=== PATIENT | female | born 1980 | race Caucasian/White ===

== ENCOUNTER 2020-12-22 14:42 | Emergency (ER) | payer OTHER, SELFPAY ==
[2020-12-22 14:50] VITALS: BP 150/101; PULSE 95; RESP 18; TEMP 37; O2SAT 99
[2020-12-22 15:28] VITALS: BP 128/95; PULSE 93; RESP 16; O2SAT 100
--- NOTE | 2020-12-22 16:16 | ED.SKABFB ---
HPI - Skin/Abscess/Foreign Bdy General Chief complaint: Skin/Abscess/Foreign Body Stated complaint: possible abscess L buttock Time Seen by Provider: 12/22/20 15:13 History of Present Illness HPI narrative: Patient is a 39-year-old female who is referred to the ER for possible abscess. Patient has developed induration and pain across her right buttock region where she receives injections for alcohol/opiate abuse. Last injection was 3 weeks ago. No fevers or chills or sweats. Intermittently increasing and decreasing in size. No drainage. Pain with palpation or movement. Related Data Home Medications Medication Instructions Recorded Confirmed hydroxyzine HCl 12/22/20 trazodone 12/22/20 Allergies Allergy/AdvReac Type Severity Reaction Status Date / Time No Known Allergies Allergy Verified 12/22/20 15:30 Review of Systems Review of Systems: All systems reviewed & are unremarkable except as noted in HPI and below Constitutional: Constitutional: Denies chills, Denies fever(s) and Denies weakness Gastrointestinal: Gastrointestinal: Denies abdominal pain, Denies nausea and Denies vomiting Integumentary/Breasts: Skin/Breast: Denies pruritus, Reports erythema and Denies rash PMFSH Past Medical History Medical History (Updated 12/22/20 @ 16:20 by Vincent Villarreal MD) Depression Surgical History Surgical History (Updated 12/22/20 @ 16:19 by Vincent Villarreal MD) History of section Social History Social History (Updated 12/22/20 @ 16:19 by Vincent Villarreal MD) Alcohol intake: former Substance use: former Exam Narrative: Exam Narrative: GENERAL: Well-appearing, well-nourished, and in no acute distress. HEAD: Normocephalic, atraumatic. ENT: Mucous membranes moist. CHEST: Clear to auscultation. No respiratory distress. HEART: Regular rate and rhythm. Normal peripheral pulses. EXTREMITIES: Normal range of motion. No edema. SKIN: Warm, dry, no rash. Area of induration right thigh. Slight erythema. Warmth and tender to touch but no fluctuant abscess noted. NEURO: Alert and oriented x3. PSYCH: Normal mood and affect. Course Course Emergency Course: Discharged antibiotics for cellulitis. Follow-up with PCP. Vital Signs Vital signs: Vital Signs Temperature 98.6 F 12/22/20 14:50 Pulse Rate 95 12/22/20 14:50 Respiratory Rate 18 12/22/20 14:50 Blood Pressure 150/101 H 12/22/20 14:50 Pulse Oximetry 99 12/22/20 14:50 Temperature 98.6 F 12/22/20 14:50 Pulse Rate 93 12/22/20 15:28 Respiratory Rate 16 12/22/20 15:28 Blood Pressure 128/95 H 12/22/20 15:28 Pulse Oximetry 100 12/22/20 15:28 Discharge Plan Discharge Clinical Impression: Cellulitis Patient Disposition: Home, Self-Care Condition: Stable Instructions: Cellulitis (ED) Additional Instructions: Return the ER if you have fever over 100.4 ?F, you cannot keep down food or water, you have chest pain or shortness of breath, you have additional concerns. Prescriptions: New doxycycline monohydrate 100 mg capsule 100 mg PO BID Qty: 20 RF: 0 No Action trazodone 50 mg tablet RF: 0 hydroxyzine HCl 25 mg tablet RF: 0 Follow-up/Referrals: Philip Julio MD [Primary Care Provider] - 1 Week
[2020-12-22 16:42] VITALS: BP 117/88; PULSE 84; RESP 14; TEMP 36.6; O2SAT 100
== END 2020-12-22 16:46 | disposition home or self-care (01) ==
PROVIDERS: Emergency Provider Emergency Medicine; PCP Emergency Medicine
DX: L03.317 Cellulitis of buttock (principal); F32.9 Major depressive disorder, single episode, unspecified
CPT/HCPCS: 99283

== ENCOUNTER 2021-11-13 15:34 | Observation (INO) | payer OTHER, SELFPAY ==
--- NOTE | ~2021-11-13 | CT_ITS ---
EXAMINATION: CT abdomen pelvis w con DATE: 11/13/2021 16:42 INDICATION: abd pain TECHNIQUE: Computed tomography (CT) of the abdomen and pelvis was performed with 75 mL Omnipaque 300 intravenous contrast. Automated exposure control and iterative reconstruction technique were employed . The dose-length product was 745.79 mGy-cm. COMPARISON: 09/17/2013. FINDINGS: Lower thorax: Unremarkable Liver: Normal. Biliary/Gallbladder: Gallbladder is normal. No bile duct dilation. Pancreas: No mass or duct dilation. Spleen: Normal. Adrenals:No mass. Kidneys: No mass, stone, or hydronephrosis. GI tract: No small or large bowel dilation. Normal appendix. Mesentery/Peritoneum: No ascites, mass, or free air. Retroperitoneum: No mass. Pelvis: Pelvic organs are within normal limits. Right ovarian cyst/polyps. Fluid distends the cervica l canal. Soft Tissues: Soft tissues and body wall unremarkable. Bones: No acute osseous finding. IMPRESSION: No acute abdominopelvic process detected. Reviewed, dictated and finalized at location K.
[2021-11-13 15:37] VITALS: BP 186/127; PULSE 129; RESP 18; TEMP 36.5; O2SAT 100
[2021-11-13] MEDS: THIAMINE HCL 200 MG/2 ML VIAL 100 MG IV PUSH (16:02)
[2021-11-13 16:03] LABS: Basophils Absolute Auto 0.1 K/mm3 (0.0-0.1); Basophils Percent Auto 0.5 % (0.2-1.2); Hematocrit 49.7 % (37.0-47.0); Hemoglobin 17.3 g/dL (12.0-15.0); Immature Granulocyte Absolute 0.03 K/mm3 (0.00-0.031); Immature Granulocyte Percent A 0.2 % (0-0.5); Lymphocytes Percent Auto 12.3 % (18.3-44.2); Mean Corpuscular HGB Conc 34.8 g/dl (32-36); Mean Corpuscular Hemoglobin 34.7 pg (26-34); Mean Corpuscular Volume 99.6 fl (80-100); Mean Platelet Volume 9.4 fl (7.4-10.4); Monocytes Absolute Auto 0.6 K/mm3 (0.1-0.6); Monocytes Percent Auto 4.9 % (2.6-8.5); Neutrophils Percent Auto 82.1 % (45.5-73.1); Platelet Count Result 283 k/mm3 (150-375); Red Blood Count 4.99 M/mm3 (4.2-5.4); Red Cell Distribution Width 11.7 % (11.5-14.5); White Blood Count 12.2 K/mm3 (4.5-10.0)
[2021-11-13] MEDS: FAMOTIDINE 20 MG/2 ML VIAL IV PUSH ×2 (16:03→22:07)
[2021-11-13] MEDS: SODIUM CHLORIDE 0.9% IV 1,000 ML 999 ML IV CONT ×2 (16:03→16:56)
[2021-11-13] MEDS: ONDANSETRON INJ 4 MG/2 ML VIAL IV PUSH (16:03)
[2021-11-13 16:12] LABS: Alanine Aminotransferase 66 U/L (6-35); Albumin Level 5.1 g/dL (3.5-5.1); Alkaline Phosphatase 76 U/L (38-126); Anion Gap 16 mmol/L (8-16); Aspartate Amino Transferase 61 U/L (14-36); Blood Urea Nitrogen 11 mg/dL (7-17); Calcium 8.9 mg/dL (8.4-10.2); Carbon Dioxide 23 mmol/L (22-30); Chloride 96 mmol/L (98-107); Estimated CRCL calculation 91 ml/min; Estimated Glomerular Filt Rate > 60; Glucose 119 mg/dL (65-110); Lipase 29 U/L (23-300); Potassium 4.3 mmol/L (3.4-5.0); Sodium 135 mmol/L (137-145)
[2021-11-13 16:13] LABS: Ethanol < 10 mg/dL (<10)
[2021-11-13 16:14] LABS: Appearance Urine Cloudy (Clear); Bilirubin Urine 2+ (Negative); Blood Urine 2+ (Negative); Color Urine Yellow (Yellow); Glucose Urine UA Negative (Negative); Ketones Urine 2+ mg/dL (Negative); Leukocyte Esterase Ur Negative LEU/UL (Negative); Nitrate Urine Negative (Negative); Protein Urine 2+ mg/dL (Negative); Specific Grav Ur >= 1.030 (1.001-1.035); Urobilinogen Urine 0.2 mg/dL (<2.0)
[2021-11-13 16:23] LABS: Add Urine Microscopic? YES; Bacteria Urine Trace /hpf; Mucus Urine Moderate /lpf; Squamous Epithelial Cell Urine Many /hpf (Few)
[2021-11-13 17:07] VITALS: BP 170/113; PULSE 109; RESP 18; O2SAT 100
[2021-11-13] MEDS: LORazepam INJ (*CRX) 2 MG/ML VIAL 1 MG IV PUSH (17:18)
[2021-11-13 17:45] VITALS: BP 137/92; PULSE 102; RESP 16; O2SAT 99
--- NOTE | 2021-11-13 17:49 | ED.GENADULT ---
HPI - General Adult General Chief complaint: Nausea/Vomiting/Diarrhea Stated complaint: vomiting and dehydration Time Seen by Provider: 11/13/21 15:41 Source: RN notes reviewed History of Present Illness HPI narrative: Patient presents emergency department from home for nausea vomiting. Patient states she has been having numerous episodes of nausea vomiting for the past 12 hours. States she is been unable to keep anything down. States is associated with abdominal pain in the right upper abdomen described as aching in nature she denies any fevers or chills chest pain shortness of breath diarrhea or any other symptoms. Patient states that she recently had a friend and she has been drinking heavily since Sunday states that she does not drink on a daily basis prior to this states she has been feeling shaky Related Data Home Medications Medication Instructions Recorded Confirmed No Home Medications 11/13/21 11/13/21 Allergies Allergy/AdvReac Type Severity Reaction Status Date / Time No Known Allergies Allergy Verified 11/13/21 16:10 Review of Systems Review of Systems: Gen.: Denies fevers or chills ENT: Denies congestion Respiratory: Denies shortness of breath or cough CV: Denies chest pain or palpitations GI: See HPI Musculoskeletal: Denies back pain or muscle pain Neuro: Denies numbness, tingling, weakness or focal weakness Skin: Denies rash Except as documented, all other systems reviewed and negative [facility] Past Medical History Medical History Depression Surgical History Surgical History (Updated 12/22/20 @ 16:19 by Vincent Villarreal MD) History of section Social History Social History Alcohol intake: former Substance use: former Exam Narrative: APPEARANCE: No acute distress, nontoxic, resting in bed HEENT: Normocephalic, atraumatic, OMM RESPIRATORY: No respiratory distress, clear to auscultation bilaterally with no rhonchi wheezing or rales CARDIOVASCULAR: RRR s murmur ABDOMINAL: Soft nondistended some palpation epigastric right upper quadrant no tenderness left lower quadrant left lower quadrant and right lower quadrant no rebound or guarding MUSCULOSKELETAl: Moves all extremities. No clubbing, cyanosis or edema. NEURO: Awake and alert. Following commands, speech normal, no focal deficits SKIN:: Warm, dry. Normal Color PSYCHIATRIC: Normal affect/mood Course Course Emergency Course: Patient states she is feeling better following Ativan states she does wish to stop drinking alcohol states she was going through approximately 1/5 of [facility] every 2 days Called and discussed with NICOLÁS Ayers for Dr. Cespedes agrees with admission Discussed with patient and family results of workup and diagnosis. Discussed need for admission. Patient and family understand and agree to current treatment plan Vital Signs Vital signs: Vital Signs Temperature 97.7 F 11/13/21 15:37 Pulse Rate 129 H 11/13/21 15:37 Respiratory Rate 18 11/13/21 15:37 Blood Pressure 186/127 H 11/13/21 15:37 Pulse Oximetry 100 11/13/21 15:37 Temperature 97.7 F 11/13/21 15:37 Pulse Rate 102 H 11/13/21 17:45 Respiratory Rate 16 11/13/21 17:45 Blood Pressure 137/92 H 11/13/21 17:45 Pulse Oximetry 99 11/13/21 17:45 Medical Decision Making Vital Signs Vital Signs: Vital Signs Temperature 97.7 F 11/13/21 15:37 Pulse Rate 129 H 11/13/21 15:37 Respiratory Rate 18 11/13/21 15:37 Blood Pressure 186/127 H 11/13/21 15:37 Pulse Oximetry 100 11/13/21 15:37 Temperature 97.7 F 11/13/21 15:37 Pulse Rate 102 H 11/13/21 17:45 Respiratory Rate 16 11/13/21 17:45 Blood Pressure 137/92 H 11/13/21 17:45 Pulse Oximetry 99 11/13/21 17:45 Lab Data Result diagrams: 11/13/21 15:58 11/13/21 15:58 Labs: Lab Results 10/24
--- NOTE | 2021-11-13 17:49 | PC.NURSE ---
Assumed care of pt at this time. Pt alert and upright on stretcher, lights dimmed. Pt updated on POC.
[2021-11-13 18:45] LABS: SARS-CoV-2 RNA PCR Negative
[2021-11-13] MEDS: SODIUM CHLORIDE 0.9% IV 1,000 ML 125 ML IV CONT (19:21)
[2021-11-13 19:22] VITALS: BP 147/97; PULSE 107; RESP 16; O2SAT 98
--- NOTE | 2021-11-13 20:22 | PM.IMHP ---
H&P: HPI History of Present Illness Date/Time: 11/13/21 20:22 Chief Complaint: Nausea and vomiting. Narrative: This is a 40-year-old female with past medical history significant for alcohol dependence, tobacco dependence. Patient has been binge drinking for the last few days after the of 1 of her friends. Patient today presents to the emergency room due to nausea vomiting and not feeling well overall feeling jittery. Patient denies any loss of consciousness, fever, rigors, chills, cough, sputum production, diarrhea, muscle aches and pains, has not been able to keep anything down for the last several days. Preliminary workup has been essentially nonrevealing. Patient is being placed on observation for further evaluation, management and treatment. Review of Systems Review of Systems: Binge drinking, nausea, vomiting. Constitutional: Constitutional: Denies chills, Denies fatigue, Denies fever(s), Denies lethargy, Denies malaise and Denies weakness Eyes: Eyes: Denies change in vision ENT: Denies dysphagia, Denies vertigo, Denies dizziness, Denies nasal congestion, Denies nasal discharge, Denies nasal obstruction and Denies odynophagia Cardiovascular: Cardiovascular: Denies chest pain, Denies pedal edema, Denies claudication, Denies leg edema, Denies lightheadedness, Denies radiating jaw, neck or arm pain, Denies palpitations and Denies dyspnea on exertion Respiratory: Respiratory: Denies cough, Denies excessive phlegm production and Denies dyspnea Gastrointestinal: Gastrointestinal: Reports abdominal pain, Denies dyspepsia, Denies heartburn, Denies diarrhea, Reports nausea and Reports vomiting Genitourinary: Genitourinary: Denies dysuria Musculoskeletal: Musculoskeletal: Denies arthralgias and Denies joint swelling Integumentary/Breasts: Skin/Breast: Denies rash Neurologic: Denies focal weakness and Denies Sensory deficit (Neuro) Psychiatric: Psychiatric: Reports no additional psychiatric complaints and Reports as per HPI Endocrine: Endocrine: Denies cold intolerance, Denies fatigue, Denies flushing, Denies heat intolerance, Denies polyphagia, Denies polydipsia and Denies palpitations Hematologic/Lymphatic: Hematologic/Lymphatic: Reports no additional hematologic/lymphatic complaints and Reports as per HPI Allergic/Immunologic: Allergic/Immunologic: Reports no additional allergic/immunologic complaints and Reports as per HPI PMFSH Past Medical History Medical History Depression Surgical History Surgical History (Updated 12/22/20 @ 16:19 by Vincent Villarreal MD) History of section Social History Social History Smoking status: Never smoker Alcohol intake: current Drinks per week: 10 Substance use: current Substance use type: marijuana Spiritual care concerns: No Meds Home Medications and Allergies Home Medications Medication Instructions Recorded Confirmed Type No Home Medications 11/13/21 11/13/21 History Allergies Allergy/AdvReac Type Severity Reaction Status Date / Time No Known Allergies Allergy Verified 11/13/21 22:00 Vital Signs Vital Signs - 24 hr 11/13/21 15:37 11/13/21 17:07 11/13/21 17:45 Temperature 97.7 F Pulse Rate 129 H 109 H 102 H Respiratory Rate 18 18 16 Blood Pressure 186/127 H 170/113 H 137/92 H Pulse Oximetry 100 100 99 11/13/21 19:22 Temperature Pulse Rate 107 H Respiratory Rate 16 Blood Pressure 147/97 H Pulse Oximetry 98 Exam Narrative: Laying in bed Const: General: comfortable, no acute distress, well developed, alert, awake and other (Well-appearing) Nutritional Appearance: average body habitus Orientation/consciousness: patient oriented x3 HENMT: Head: normal to inspection, normocephalic and atraumatic Ears: hearing grossly normal bilaterally Face and sinus: normal facial exam Mouth: Yes Normal oral and
[2021-11-13 20:53] VITALS: BMI 36.1
--- NOTE | 2021-11-13 20:56 | ADMGEN ---
This patient, Shruthi Evans, was admitted to [facility] Surg Room 307-01. Patient/family oriented to hospital policies and general routines including ID bracelet, bed and alarms, visiting hours, pain management, procedures, bathroom and other care routines, personal items, smoking policy, room service/diet, and visiting hours. Information on how to activate the Rapid Response Team has been discussed. Patient/Family are encouraged to report perceived risks to care and to ask questions if they do not understand what they are told or what they should do.
[2021-11-13 22:00] VITALS: BP 150/105; PULSE 101; RESP 16; TEMP 36.8; O2SAT 97
[2021-11-13] MEDS: THIAMINE HCL INJ 100 MG, FOLIC ACID INJ 1 MG, MULTIVITAMINS-12 INJ VIAL 1 5 ML, MULTIVI... IV CONT (22:39)
[2021-11-13] MEDS: chlordiazePOXIDE (*CRX) 25 MG CAPSULE 50 MG PO (23:00)
[2021-11-14] VITALS: PULSE 97
[2021-11-14 03:49] VITALS: PULSE 116
[2021-11-14 04:00] VITALS: PULSE 91
[2021-11-14] MEDS: chlordiazePOXIDE (*CRX) 25 MG CAPSULE 50 MG PO (05:11)
[2021-11-14] MEDS: LORazepam INJ (*CRX) 2 MG/ML VIAL 1 MG IV PUSH (05:12)
[2021-11-14 05:43] VITALS: BP 157/106; PULSE 97; RESP 16; TEMP 36.1; O2SAT 99
[2021-11-14 07:15] LABS: Basophils Percent Auto 0.4 % (0.2-1.2); Eosinophils Absolute Auto 0.1 K/mm3 (0-0.3); Eosinophils Percent Auto 1.3 % (0-4.4); Hematocrit 40.8 % (37.0-47.0); Hemoglobin 13.9 g/dL (12.0-15.0); Immature Granulocyte Absolute 0.03 K/mm3 (0.00-0.031); Immature Granulocyte Percent A 0.4 % (0-0.5); Lymphocytes Absolute Auto 1.47 K/mm3 (0.9-3.2); Lymphocytes Percent Auto 21.7 % (18.3-44.2); Mean Corpuscular HGB Conc 34.1 g/dl (32-36); Mean Corpuscular Hemoglobin 34.7 pg (26-34); Mean Corpuscular Volume 101.7 fl (80-100); Mean Platelet Volume 9.7 fl (7.4-10.4); Monocytes Absolute Auto 0.5 K/mm3 (0.1-0.6); Neutrophils Absolute Auto 4.6 K/mm3 (1.3-6.7); Neutrophils Percent Auto 68.2 % (45.5-73.1); Platelet Count Result 192 k/mm3 (150-375); Red Blood Count 4.01 M/mm3 (4.2-5.4); Red Cell Distribution Width 11.7 % (11.5-14.5); White Blood Count 6.8 K/mm3 (4.5-10.0)
[2021-11-14 07:27] LABS: Alanine Aminotransferase 32 U/L (6-35); Albumin Level 3.4 g/dL (3.5-5.1); Alkaline Phosphatase 41 U/L (38-126); Anion Gap 6 mmol/L (8-16); Aspartate Amino Transferase 39 U/L (14-36); Bilirubin,Total 0.7 mg/dL (0.2-1.3); Blood Urea Nitrogen 7 mg/dL (7-17); Calcium 7.5 mg/dL (8.4-10.2); Carbon Dioxide 26 mmol/L (22-30); Chloride 103 mmol/L (98-107); Estimated CRCL calculation 82 ml/min; Estimated Glomerular Filt Rate > 60; Glucose 129 mg/dL (65-110); Potassium 3.6 mmol/L (3.4-5.0); Sodium 135 mmol/L (137-145)
[2021-11-14 08:52] VITALS: O2SAT 98
[2021-11-14 08:55] VITALS: PULSE 88
[2021-11-14] MEDS: FAMOTIDINE 20 MG/2 ML VIAL IV PUSH (08:58)
--- NOTE | 2021-11-14 10:55 | PM.DS ---
DS: Admitting Diagnosis Discharge Date November 14, 2021 Admitting Diagnosis Alcohol withdrawal DS: Discharge Diagnosis Discharge Diagnosis (1) Nausea and vomiting: Code(s): R11.2 - Nausea with vomiting, unspecified Status: Acute Assessment and Plan: Resolved (2) Acute dehydration: Code(s): E86.0 - Dehydration Status: Acute Assessment and Plan: Resolved (3) Alcohol withdrawal: Code(s): F10.239 - Alcohol dependence with withdrawal, unspecified Status: Acute Assessment and Plan: Low-dose Librium on discharge DS: Summary Hospital Course Hospital Course: Patient was admitted for alcohol intoxication and mild withdrawal. No seizures. Discharged on Librium. Time Spent with Patient Time attestation: Total time spent providing and/or coordinating discharge services: Greater than 30 min Exam Narrative: Laying in bed Const: General: comfortable, no acute distress, well developed, alert, awake and other (Well-appearing) Nutritional Appearance: average body habitus Orientation/consciousness: patient oriented x3 HENMT: Head: normal to inspection, normocephalic and atraumatic Ears: hearing grossly normal bilaterally Face and sinus: normal facial exam Mouth: Yes Normal oral and palatal mucosa present Eyes: General: appearance normal, both eyes and all related structures Alignment and Position: alignment normal Sclera: sclerae normal Pupils: Equal, round and reactive pupils present EOM: EOMs intact bilaterally Neck: Neck: normal visual inspection, full ROM, no lymphadenopathy, supple and no JVD Thyroid: thyroid normal Lymphatic: no lymphadenopathy noted Resp: Effort & Inspection: normal respiratory effort and able to speak in complete sentences Auscultation: clear to auscultation bilaterally Cardio: Jugular venous distension: no JVD Rate: regular rate Rhythm: regular rhythm Heart sounds: S1 normal heart sound present and S2 normal heart sound present : General: Yes deferred Skin: General skin exam: normal color Rashes: no rashes Wounds: no wounds Neuro: General: patient oriented x3, CN's II-XI intact bilaterally and Unable to assess gait Cranial nerves: Yes CN's II-XII intact bilaterally and Yes Equal, round and reactive pupils present Cognition (Neuro): normal cognition Speech: normal speech Gait exam (Neuro): Unable to assess gait Motor exam (neuro): 5/5 motor strength present throughout Sensory Exam: No Sensory deficit (Neuro) Extrem: General: normal to inspection, full ROM, no joint enlargement and no pedal edema DS: Data Data Completed and Pending Labs on day of discharge: Labs from last 24 hours 11/14/21 11/14/21 11/13/21 06:51 06:51 18:04 WBC 6.8 RBC 4.01 L Hgb 13.9 D Hct 40.8 MCV 101.7 H MCH 34.7 H MCHC 34.1 RDW 11.7 Plt Count 192 MPV 9.7 Immature Gran % (Auto) 0.4 Neut % (Auto) 68.2 Lymph % (Auto) 21.7 [place] % (Auto) 8.0 Eos % (Auto) 1.3 Baso % (Auto) 0.4 Lymph # (Auto) 1.47 [place] # (Auto) 0.5 Eos # (Auto) 0.1 Baso # (Auto) 0.0 Abs Immat Gran (auto) 0.03 Absolute Neuts (auto) 4.6 Absolute Nucleated RBC 0.0 Nucleated RBC % 0.0 Sodium 135 L Potassium 3.6 Chloride 103 Carbon Dioxide 26 Anion Gap 6 L BUN 7 Creatinine 0.80 Estim Creat Clear Calc 82 Estimated GFR > 60 Glucose 129 H Calcium 7.5 L Total Bilirubin 0.7 AST 39 H ALT 32 Alkaline Phosphatase 41 Total Protein 6.0 L Albumin 3.4 L Lipase Urine Color Urine Appearance Urine pH Ur Specific [place] Urine Protein Urine Glucose (UA) Urine Ketones Ur Blood (Man) Urine Nitrate Urine Bilirubin Urine Urobilinogen Leukocyte Esterase Rfl Urine RBC Urine WBC Ur Squamous Epith Cells Urine Bacteria Urine Mucus Ethyl Alcohol SARS-CoV-2 RNA (RT-PCR) Negative 11/13/21 11/13/21 11/13/21
== END 2021-11-14 11:16 | disposition home or self-care (01) ==
LOC: ANHED 17:59 → ANH3MEDSUR 11-14 05:45
PROVIDERS: Admitting Provider Internal Medicine; Emergency Provider Emergency Medicine; PCP Family Medicine; Visit Provider Chiropractor
DX: F10.239 Alcohol dependence with withdrawal, unspecified (principal); R11.2 Nausea with vomiting, unspecified; E86.0 Dehydration; Z20.822 Contact with and (suspected) exposure to COVID-19
CPT/HCPCS: 36415; 74177; 80053; 80307; 81001; 81025; 83690; 85025; 87086; 87088; 96361; 96365; 96366; 96374; 96375; 96376; 99285; A9270; C9803; G0378; G0379; J2060; J2405; J3411; J3475; J7030; J7121; Q9967; U0003; U0005

== ENCOUNTER 2022-06-01 15:40 | Emergency (ER) | payer OTHER, SELFPAY ==
[2022-06-01] VITALS (14 sets, daily range): BP systolic 156–203; BP diastolic 106–133; PULSE 95–140; RESP 14–31; TEMP 36.9; O2SAT 96–98
--- NOTE | 2022-06-01 15:58 | ECG_ITS ---
Measurements Intervals [place] Rate: 113 P: 47 IA: 146 QRS: 44 QRSD: 79 T: 20 QT: 313 QTc: 430 Interpretive Statements SINUS TACHYCARDIA OTHERWISE NORMAL ECG NO PREVIOUS ECG AVAILABLE FOR COMPARISON Electronically Signed On 06-02-2022 7:44:01 [employer]ER LIAISON by Connor Perez M.D.
[2022-06-01 16:41] LABS: Basophils Percent Auto 0.4 % (0.2-1.2); Eosinophils Percent Auto 0.3 % (0-4.4); Hematocrit 46.7 % (37.0-47.0); Hemoglobin 16.8 g/dL (12.0-15.0); Immature Granulocyte Absolute 0.02 K/mm3 (0.00-0.031); Immature Granulocyte Percent A 0.3 % (0-0.5); Lymphocytes Absolute Auto 1.85 K/mm3 (0.9-3.2); Lymphocytes Percent Auto 27.3 % (18.3-44.2); Mean Corpuscular Hemoglobin 34.6 pg (26-34); Mean Corpuscular Volume 96.1 fl (80-100); Mean Platelet Volume 9.6 fl (7.4-10.4); Monocytes Absolute Auto 0.5 K/mm3 (0.1-0.6); Monocytes Percent Auto 6.6 % (2.6-8.5); Neutrophils Absolute Auto 4.4 K/mm3 (1.3-6.7); Neutrophils Percent Auto 65.1 % (45.5-73.1); Platelet Count Result 186 k/mm3 (150-375); Red Blood Count 4.86 M/mm3 (4.2-5.4); Red Cell Distribution Width 11.6 % (11.5-14.5); White Blood Count 6.8 K/mm3 (4.5-10.0)
[2022-06-01] MEDS: SODIUM CHLORIDE 0.9% IV 1,000 ML 150 ML IV CONT (16:44)
[2022-06-01] MEDS: LORazepam INJ (*CRX) 2 MG/ML VIAL 1 MG IV PUSH ×2 (16:44→19:08)
[2022-06-01] MEDS: THIAMINE HCL 200 MG/2 ML VIAL 100 MG IV PUSH (16:44)
[2022-06-01 16:45] LABS: Appearance Urine Clear (Clear); Bilirubin Urine 1+ (Negative); Blood Urine Trace-lysed (Negative); Color Urine Yellow (Yellow); Glucose Urine UA Negative (Negative); Ketones Urine 1+ mg/dL (Negative); Leukocyte Esterase Ur Negative LEU/UL (Negative); Nitrate Urine Negative (Negative); Protein Urine 3+ mg/dL (Negative); Urobilinogen Urine 0.2 mg/dL (<2.0); pH Urine 7.5 (5.0-9.0)
[2022-06-01 16:47] LABS: Mucus Urine Rare /lpf; Squamous Epithelial Cell Urine Many /hpf (Few); WBC Urine 0-3 /hpf
[2022-06-01 16:51] LABS: Alanine Aminotransferase 31 U/L (6-35); Albumin Level 4.7 g/dL (3.5-5.1); Alkaline Phosphatase 59 U/L (38-126); Anion Gap 13 mmol/L (8-16); Aspartate Amino Transferase 44 U/L (14-36); Bilirubin,Total 0.4 mg/dL (0.2-1.3); Blood Urea Nitrogen 8 mg/dL (7-17); Calcium 8.9 mg/dL (8.4-10.2); Carbon Dioxide 25 mmol/L (22-30); Chloride 97 mmol/L (98-107); Estimated CRCL calculation 84 ml/min; Estimated Glomerular Filt Rate > 60; Glucose 115 mg/dL (65-110); Potassium 3.4 mmol/L (3.4-5.0); Sodium 135 mmol/L (137-145)
[2022-06-01 16:52] LABS: Add Urine Microscopic? YES
[2022-06-01 17:02] LABS: Amphetamine Screen Urine Negative (Negative); Barbiturate Screen Urine Negative (Negative); Benzodiazepines Screen Urine Negative (Negative); Cannabinoid Screen Urine Positive (Negative); Cocaine Screen Urine Negative (Negative); Methadone Screen Urine Negative (Negative); Opiate Screen Urine Negative (Negative); Phencyclidine Screen Urine Negative (Negative)
[2022-06-01] MEDS: ONDANSETRON INJ 4 MG/2 ML VIAL IV PUSH (17:05)
[2022-06-01] MEDS: chlordiazePOXIDE (*CRX) 25 MG CAPSULE PO (18:17)
[2022-06-01] MEDS: KETOROLAC 15 MG/ML VIAL (*BKC) IV PUSH (18:17)
[2022-06-01] MEDS: cloNIDine HCL 0.2 MG TABLET PO (18:29)
--- NOTE | 2022-06-01 19:31 | ED.ALCOHOL ---
HPI - Alcohol General Chief Complaint: Alcohol Stated Complaint: ETOH WITHDRAWALS Time Seen by Provider: 06/01/22 15:58 Source: patient Mode of arrival: ambulatory Limitations: no limitations History of Present Illness HPI narrative: 41-year-old with a history of hypertension, chronic alcoholism here with complaints of having withdrawal symptoms which includes nausea, heart racing, elevated blood pressure. Patient states that she drinks a pint of whiskey on a daily basis and her last drink was at 7 AM. Patient states that she has been in a rehab several times but relapsed. She denies being suicidal or depressed. MD complaint: alcohol withdrawal Last drink: hours (ago) (4) Chronic alcohol use: Yes Previous visits for alcohol intoxication: Yes Recent trauma: No Associated symptoms: nausea and tremors Treatments prior to arrival: none Related Data Allergies Allergy/AdvReac Type Severity Reaction Status Date / Time No Known Allergies Allergy Verified 11/13/21 22:00 Review of Systems Review of Systems: All systems reviewed & are unremarkable except as noted in HPI and below Constitutional: Constitutional: Reports no additional constitutional complaints Eyes: Eyes: Reports no additional eye complaints ENT: Reports system reviewed and no additional complaints, except as documented Cardiovascular: Cardiovascular: Reports as per HPI Respiratory: Respiratory: Reports no additional respiratory complaints Gastrointestinal: Gastrointestinal: Reports as per HPI Musculoskeletal: Musculoskeletal: Reports no additional musculoskeletal complaints Integumentary/Breasts: Skin/Breast: Reports system reviewed and no additional complaints, except as docu PMFSH Past Medical History Medical History Depression Surgical History Surgical History History of section Social History Social History Smoking status: Never smoker Alcohol intake: current Drinks per week: 10 Substance use: current Substance use type: marijuana Spiritual care concerns: No Exam Narrative: GENERAL: Well-appearing, well-nourished, and in no acute distress. Rocking on the bed, anxious HEAD: Normocephalic, atraumatic. EYES: PERRLA and EOMI. NECK: Supple. CHEST: Clear to auscultation. No respiratory distress. HEART: tachycardic. No murmur heard. Normal peripheral pulses. ABDOMEN: Soft, nontender, nondistended, normal active bowel sounds. EXTREMITIES: Normal range of motion. No edema. SKIN: Warm, dry, no rash. NEURO: No focal deficits. Alert and oriented x3. Tremor present in both upper extremities PSYCH: Normal mood and affect. Course Course Emergency Course: 41-year-old with history of hypertension, chronic alcoholism here with withdrawal symptoms. We will start IV fluids, Ativan for her tremor and tachycardia do routine lab work. Patient was given IV Ativan x2 and clonidine for her blood pressure. She is feeling much better prefers to go home. Vital Signs Vital signs: Vital Signs Temperature 36.9 C 06/01/22 15:46 Pulse Rate 140 H 06/01/22 15:46 Respiratory Rate 22 H 06/01/22 15:46 Blood Pressure 203/133 H 06/01/22 15:46 Pulse Oximetry 98 06/01/22 15:46 Temperature 36.9 C 06/01/22 15:46 Pulse Rate 99 06/01/22 17:58 Respiratory Rate 29 H 06/01/22 18:01 Blood Pressure 170/122 H 06/01/22 17:58 Pulse Oximetry 97 06/01/22 17:58 MDM - Alcohol MDM Narrative Medical decision making narrative: 41-year-old with a history of hypertension and chronic alcoholism now having withdrawal symptoms start IV fluids give her thiamine 100 mg IV along with Ativan 1 mg. Patient blood pressure remained high did give her point 2 mg of clonidine. Patient is feeling much better after IV fluids and medication she prefers to go home. Differential Diagnos
[2022-06-01] MEDS: CALCIUM CARBONATE (TUMS) 500 MG (200 MG ELEMENTAL) 400 MG PO (20:22)
== END 2022-06-01 20:38 | disposition home or self-care (01) ==
PROVIDERS: Emergency Provider Family Medicine
DX: F10.239 Alcohol dependence with withdrawal, unspecified (principal); I10 Essential (primary) hypertension; R00.0 Tachycardia, unspecified
CPT/HCPCS: 36415; 80053; 80307; 81001; 84443; 85025; 93005; 96361; 96374; 96375; 96376; 99284; A9270; J1885; J2060; J2405; J3411; J7030

== ENCOUNTER 2022-07-23 13:50 | Emergency (ER) | payer OTHER, SELFPAY ==
[2022-07-23] VITALS (15 sets, daily range): BP systolic 138–195; BP diastolic 102–121; PULSE 102–145; RESP 13–25; TEMP 36.2; O2SAT 97–100
[2022-07-23 14:54] LABS: Basophils Percent Auto 0.2 % (0.2-1.2); Hematocrit 48.8 % (37.0-47.0); Hemoglobin 17.4 g/dL (12.0-15.0); Immature Granulocyte Absolute 0.03 K/mm3 (0.00-0.031); Immature Granulocyte Percent A 0.3 % (0-0.5); Lymphocytes Absolute Auto 0.84 K/mm3 (0.9-3.2); Lymphocytes Percent Auto 8.4 % (18.3-44.2); Mean Corpuscular HGB Conc 35.7 g/dl (32-36); Mean Corpuscular Hemoglobin 34.4 pg (26-34); Mean Corpuscular Volume 96.4 fl (80-100); Mean Platelet Volume 9.8 fl (7.4-10.4); Monocytes Absolute Auto 0.7 K/mm3 (0.1-0.6); Monocytes Percent Auto 7.1 % (2.6-8.5); Neutrophils Absolute Auto 8.4 K/mm3 (1.3-6.7); Platelet Count Result 218 k/mm3 (150-375); Red Blood Count 5.06 M/mm3 (4.2-5.4); Red Cell Distribution Width 12.7 % (11.5-14.5)
[2022-07-23 15:05] LABS: Prothrombin Time 12.9 Seconds (11.1-14.7)
[2022-07-23] MEDS: SODIUM CHLORIDE 0.9% IV 1,000 ML 999 ML IV CONT ×2 (15:05→18:31)
[2022-07-23 15:06] LABS: Partial Thromboplastin Time 23.6 SECONDS (22.3-36.8)
[2022-07-23] MEDS: diazePAM INJ (*CRX) 10 MG/2 ML SYRINGE 5 MG IV PUSH (15:06)
[2022-07-23] MEDS: ONDANSETRON INJ 4 MG/2 ML VIAL IV PUSH (15:06)
[2022-07-23 15:09] LABS: Ethanol < 10 mg/dL (<10)
[2022-07-23 15:14] LABS: Albumin Level 4.8 g/dL (3.5-5.1); Alkaline Phosphatase 76 U/L (38-126); Anion Gap 19 mmol/L (8-16); Aspartate Amino Transferase 55 U/L (14-36); Bilirubin,Total 1.6 mg/dL (0.2-1.3); Blood Urea Nitrogen 14 mg/dL (7-17); Carbon Dioxide 17 mmol/L (22-30); Chloride 98 mmol/L (98-107); Estimated CRCL calculation 80 ml/min; Estimated Glomerular Filt Rate > 60; Glucose 160 mg/dL (65-110); Magnesium 2.3 mg/dL (1.6-2.3); Potassium 4.1 mmol/L (3.4-5.0); Sodium 134 mmol/L (137-145)
[2022-07-23 15:26] LABS: Alanine Aminotransferase 55 U/L (6-35)
[2022-07-23 16:16] LABS: Lipase 61 U/L (23-300)
--- NOTE | 2022-07-23 16:22 | ED.GENADULT ---
HPI - General Adult General Chief complaint: Alcohol Stated complaint: .etoh withdrawl Time Seen by Provider: 07/23/22 14:06 History of Present Illness HPI narrative: Patient is a 5-year-old female who presents ER for concerns of alcohol withdrawal. She reports she had several days off and drink new fifths of whiskey. She then started having epigastric pain and vomiting and tremors. She began taking chlordiazepoxide yesterday which was prescribed by her PCP. She has had 3 doses of 25 mg today. She continues to feel tremulous and nauseous with epigastric discomfort. No fevers or chills or sweats. No diarrhea. No chest pain or chest pressure. No history of withdrawal seizure. Related Data Home Medications Medication Instructions Recorded Confirmed acamprosate 333 mg tablet,delayed mg PO 07/23/22 07/23/22 release hydroxyzine HCl 25 mg tablet mg 07/23/22 Allergies Allergy/AdvReac Type Severity Reaction Status Date / Time ABX Allergy Unknown Uncoded 07/23/22 14:48 Review of Systems Review of Systems: All systems reviewed & are unremarkable except as noted in HPI and below Constitutional: Constitutional: Denies chills, Denies fatigue and Denies fever(s) ENT: Denies nasal congestion and Denies sore throat Cardiovascular: Cardiovascular: Denies chest pain, Denies rapid heart rate and Denies radiating jaw, neck or arm pain Respiratory: Respiratory: Denies cough and Denies dyspnea Gastrointestinal: Gastrointestinal: Reports abdominal pain, Denies diarrhea, Reports nausea and Reports vomiting Genitourinary: Genitourinary: Denies nocturia and Denies dysuria PMFSH Past Medical History Medical History Depression Surgical History Surgical History History of section Social History Social History Smoking status: Never smoker Alcohol intake: current Drinks per week: 10 Substance use: current Substance use type: marijuana Spiritual care concerns: No Exam Narrative: GENERAL: Uncomfortable-appearing, well-nourished, and in mild distress. HEAD: Normocephalic, atraumatic. EYES: PERRL and EOMI. ENT: Mucous membranes moist. CHEST: Clear to auscultation. No respiratory distress. HEART: Tachycardic and regular. Normal peripheral pulses. ABDOMEN: Soft, nontender, nondistended, normal active bowel sounds. EXTREMITIES: Normal range of motion. No edema. SKIN: Warm, dry, no rash. NEURO: No focal deficits. Slightly tremulous. Alert and oriented x3. PSYCH: Normal mood and affect. Course Course Emergency Course: Tachycardia improving with hydration. Patient tolerating intake of oral fluids. Epigastric discomfort improved as is vomiting. Will start on a PPI. Patient still has very mild tremors. [place] appropriate for outpatient treatment as she does have access to her Librium. Vital Signs Vital signs: Vital Signs Temperature 97.2 F L 07/23/22 13:50 Pulse Rate 145 H 07/23/22 13:50 Respiratory Rate 18 07/23/22 13:50 Blood Pressure 195/121 H 07/23/22 13:50 Pulse Oximetry 100 07/23/22 13:50 Temperature 97.2 F L 07/23/22 13:50 Pulse Rate 118 H 07/23/22 18:06 Respiratory Rate 21 H 07/23/22 18:06 Blood Pressure 145/104 H 07/23/22 18:06 Pulse Oximetry 98 07/23/22 18:06 Medical Decision Making Vital Signs Vital Signs: Vital Signs Temperature 97.2 F L 07/23/22 13:50 Pulse Rate 145 H 07/23/22 13:50 Respiratory Rate 18 07/23/22 13:50 Blood Pressure 195/121 H 07/23/22 13:50 Pulse Oximetry 100 07/23/22 13:50 Temperature 97.2 F L 07/23/22 13:50 Pulse Rate 118 H 07/23/22 18:06 Respiratory Rate 21 H 07/23/22 18:06 Blood Pressure 145/104 H 07/23/22 18:06 Pulse Oximetry 98 07/23/22 18:06 Lab Data 07/23/22 14:45 07/23/22 14:45 Labs: Lab Res
[2022-07-23] MEDS: PANTOPRAZOLE SODIUM IV 40 MG VIAL IV PUSH (19:38)
== END 2022-07-23 19:57 | disposition home or self-care (01) ==
PROVIDERS: Emergency Provider Emergency Medicine
DX: F10.239 Alcohol dependence with withdrawal, unspecified (principal); Y90.0 Blood alcohol level of less than 20 mg/100 ml; F32.A Depression, unspecified
CPT/HCPCS: 36415; 80053; 80307; 83690; 83735; 85025; 85610; 85730; 96361; 96374; 96375; 99284; C9113; J2405; J3360; J7030

== ENCOUNTER 2023-01-03 12:13 | Emergency (ER) | payer OTHER, SELFPAY ==
[2023-01-03] VITALS (18 sets, daily range): BP systolic 140–160; BP diastolic 79–119; PULSE 112–141; RESP 16–26; TEMP 36.1; O2SAT 92–99
--- NOTE | ~2023-01-03 | XR_ITS ---
EXAMINATION: XR chest 1V portable INDICATION: Vomiting TECHNIQUE: Portable AP chest at 1314 hours COMPARISON: 03/07/2012 FINDINGS: The lungs are free of acute opacities. No pleural effusion or pneumothorax. The cardiomedia stinal silhouette is normal. IMPRESSION: 1. No acute cardiopulmonary abnormality. Reviewed, dictated and finalized at location B.
--- NOTE | 2023-01-03 13:04 | ED.NAVMDI ---
HPI - Nausea/Vomiting/Diarrhea General Chief complaint: Nausea/Vomiting/Diarrhea Stated complaint: Vomiting Time Seen by Provider: 01/03/23 13:03 Source: patient Mode of arrival: ambulatory Limitations: no limitations History of Present Illness HPI Narrative: 42 years old white female drove herself to the emergency room with alcohol withdrawal symptoms. Patient been binge drinking for the last 3 days nonstop, last alcohol intake was 16 hours ago. Patient stopped so to be able to go to work tomorrow. Patient reports nausea and vomiting at least 40 times since last night. Currently shaking, restless and anxious. Patient had a prescription of Librium from her doctor and could not get it today. She denies any fever, chills, chest pain, headache or abdominal pain. Related Data Home Medications Medication Instructions Recorded Confirmed acamprosate 333 mg tablet,delayed mg PO 07/23/22 07/23/22 release hydroxyzine HCl 25 mg tablet mg 07/23/22 Allergies Allergy/AdvReac Type Severity Reaction Status Date / Time ABX Allergy Unknown Uncoded 07/23/22 14:48 Review of Systems Review of Systems: All systems reviewed & are unremarkable except as noted in HPI and below PMFSH Past Medical History Medical History Depression Surgical History Surgical History History of section Social History Social History Smoking status: Never smoker Alcohol intake: current Drinks per week: 10 Substance use: current Substance use type: marijuana Spiritual care concerns: No Exam Narrative: General appearance: Well-developed, well-nourished, shaking, restless, diaphoretic Skin: Normal color Head: Normocephalic, nontraumatic Eyes: Clear conjunctiva ENT: Oropharynx normal, ears normal, nose normal Neck: Supple, nontender Chest and respiratory: Airway patent, no respiratory distress, no accessory muscle use Heart: Tachycardia Abdomen: Soft, nontender, no organomegaly, quiet bowel sounds Vascular: Normal peripheral pulses, normal capillary refill. Musculoskeletal: Normal range of motion, nontender back Neurologic: Alert and oriented ?3, FEATHERER is normal as tested, no gross motor deficit Course Vital Signs Vital signs: Vital Signs Temperature 36.1 C L 01/03/23 12:34 Pulse Rate 140 H 01/03/23 12:34 Respiratory Rate 16 01/03/23 12:34 Blood Pressure 149/119 H 01/03/23 12:34 Pulse Oximetry 98 01/03/23 12:34 Oxygen Delivery Room Air 01/03/23 12:34 Temperature 36.1 C L 01/03/23 12:34 Pulse Rate 112 H 01/03/23 16:31 Respiratory Rate 18 01/03/23 16:31 Blood Pressure 155/109 H 01/03/23 16:30 Pulse Oximetry 97 01/03/23 16:31 Oxygen Delivery Room Air 01/03/23 12:34 MDM - Nausea/Vomiting/Diarrhea MDM Narrative Medical decision making narrative: Patient presents with restlessness, shaking, sweating, tachycardia, last alcohol intake 16 hours prior to arrival. Patient have a prescription of Librium from her family physician, could not get it right away and decided to come to us instead History of alcoholism and marijuana use. Work-up today include CBC, CMP, PT, lipase, urine analysis, alcohol level and urine drug screen showed white count of 14.2 likely secondary to stress, sodium of 130 secondary to frequent vomiting, urine analysis showed no infection, urine drug screen positive for marijuana, alcohol less than 10, chest x-ray showed no acute abnormality. Patient received 2 mg of lorazepam IV, folic acid 1 mg IV, thiamine 100 mg IV, 2 L of norm
[2023-01-03 13:44] LABS: Basophils Percent Auto 0.3 % (0.2-1.2); Hematocrit 45.9 % (37.0-47.0); Hemoglobin 16.7 g/dL (12.0-15.0); Immature Granulocyte Absolute 0.06 K/mm3 (0.00-0.031); Immature Granulocyte Percent A 0.4 % (0-0.5); Lymphocytes Absolute Auto 1.31 K/mm3 (0.9-3.2); Lymphocytes Percent Auto 9.3 % (18.3-44.2); Mean Corpuscular HGB Conc 36.4 g/dl (32-36); Mean Corpuscular Hemoglobin 34.1 pg (26-34); Mean Corpuscular Volume 93.7 fl (80-100); Mean Platelet Volume 10.1 fl (7.4-10.4); Monocytes Absolute Auto 0.6 K/mm3 (0.1-0.6); Monocytes Percent Auto 4.2 % (2.6-8.5); Neutrophils Absolute Auto 12.2 K/mm3 (1.3-6.7); Neutrophils Percent Auto 85.8 % (45.5-73.1); Platelet Count Result 289 k/mm3 (150-375); Red Cell Distribution Width 12.2 % (11.5-14.5); White Blood Count 14.2 K/mm3 (4.5-10.0)
[2023-01-03 13:52] LABS: Ammonia < 9 umol/L (9-30); Ethanol < 10 mg/dL (<10)
[2023-01-03] MEDS: MULTIVITAMINS-12 INJ VIAL 1 5 ML, MULTIVITAMINS-12 INJ VIAL 2 5 ML in SODIUM CHLORIDE 0... 100 ML IV CONT (13:52)
[2023-01-03] MEDS: LORazepam INJ (*CRX) 2 MG/ML VIAL IV PUSH (13:57)
[2023-01-03] MEDS: THIAMINE HCL 200 MG/2 ML VIAL 100 MG IV PUSH (13:57)
[2023-01-03] MEDS: SODIUM CHLORIDE 0.9% IV 2,000 ML 999 ML IV CONT (13:57)
[2023-01-03] MEDS: FOLIC ACID 1 MG/0.2 ML INJ IV PUSH (13:58)
[2023-01-03 14:00] LABS: INR 0.9; Prothrombin Time 12.9 Seconds (11.1-14.7)
[2023-01-03 14:04] LABS: Albumin Level 4.9 g/dL (3.5-5.1); Alkaline Phosphatase 72 U/L (38-126); Anion Gap 11 mmol/L (8-16); Aspartate Amino Transferase 33 U/L (14-36); Bilirubin,Total 1.5 mg/dL (0.2-1.3); Blood Urea Nitrogen 17 mg/dL (7-17); Calcium 9.9 mg/dL (8.4-10.2); Carbon Dioxide 24 mmol/L (22-30); Chloride 95 mmol/L (98-107); Creatine Kinase 61 U/L (30-135); Estimated CRCL calculation 85 ml/min; Estimated Glomerular Filt Rate > 60; Glucose 143 mg/dL (65-110); Sodium 130 mmol/L (137-145)
--- NOTE | 2023-01-03 14:13 | ECG_ITS ---
Measurements Intervals [place] Rate: 132 P: 41 NV: 138 QRS: 37 QRSD: 81 T: 25 QT: 288 QTc: 428 Interpretive Statements SINUS TACHYCARDIA DELAYED PRECORDIAL R/S TRANSITION BORDERLINE ST-T WAVE ABNORMALITY- INFERIOR LEADS ABNORMAL ECG COMPARED TO ECG 05/20/2022 03:36:22 SINUS TACHYCARDIA NOW PRESENT Electronically Signed On 01-03-2023 14:16:20 CDT by Chavo GARCIA
[2023-01-03 14:14] LABS: Alanine Aminotransferase 49 U/L (6-35)
[2023-01-03 14:50] LABS: Appearance Urine Cloudy (Clear); Bacteria Urine None Seen /hpf; Bilirubin Urine 1+ (Negative); Blood Urine Negative (Negative); Color Urine Dark Yellow (Yellow); Glucose Urine UA Negative (Negative); Hyaline Casts Urine Present /lpf; Ketones Urine 1+ mg/dL (Negative); Leukocyte Esterase Ur Trace LEU/UL (Negative); Nitrate Urine Negative (Negative); Protein Urine 2+ mg/dL (Negative); Squamous Epithelial Cell Urine Few /hpf (Few); WBC Urine 0-5 /hpf; pH Urine 5.5 (5.0-9.0)
[2023-01-03 14:51] LABS: Add Urine Microscopic? YES; Specific Grav Ur 1.037 (1.001-1.035)
[2023-01-03 15:20] LABS: Amphetamine Screen Urine Negative (Negative); Barbiturate Screen Urine Negative (Negative); Benzodiazepines Screen Urine Negative (Negative); Cannabinoid Screen Urine Positive (Negative); Cocaine Screen Urine Negative (Negative); Methadone Screen Urine Negative (Negative); Opiate Screen Urine Negative (Negative); Phencyclidine Screen Urine Negative (Negative)
--- NOTE | 2023-01-03 16:56 | PC.NURSE ---
EDP ok with patient not getting entire banana bag infusion
--- NOTE | 2023-01-08 11:16 | PC.NURSE ---
LATE ENTRY This note is being entered to document information to the patient's record. The following information was omitted on [01/03/23], by [Margot Castellano RN]. NS fluids infusion was discontinued at stop time on 01/03/23.
== END 2023-01-03 16:59 | disposition home or self-care (01) ==
PROVIDERS: Emergency Provider Emergency Medicine; PCP Family Medicine
DX: F10.230 Alcohol dependence with withdrawal, uncomplicated (principal); Y90.0 Blood alcohol level of less than 20 mg/100 ml; F12.10 Cannabis abuse, uncomplicated; R00.0 Tachycardia, unspecified; R94.31 Abnormal electrocardiogram [ECG] [EKG]
CPT/HCPCS: 36415; 71045; 80053; 80307; 81001; 81025; 82140; 82550; 85025; 85610; 93005; 96361; 96365; 96375; 99284; J2060; J3411; J7030

== ENCOUNTER 2023-02-09 17:48 | Emergency (ER) | payer OTHER, SELFPAY ==
[2023-02-09 17:59] VITALS: BP 156/102; PULSE 83; RESP 16; TEMP 36.6; O2SAT 97
--- NOTE | 2023-02-09 18:00 | ED.URI ---
HPI - URI/Sore Throat General Chief Complaint: Upper Respiratory Infection Stated Complaint: flu like symptoms Time Seen by Provider: 02/09/23 18:00 Source: patient, RN notes reviewed and old records reviewed Mode of arrival: ambulatory Limitations: no limitations History of Present Illness HPI Narrative: 42-year-old female presents to the [facility] with concerns of sore throat and body aches for 2 weeks. Patient reports that she has been treating it as a virus with [id number] products. Patient extremely anxious. States that she is not allergic to antibiotics just some pill they gave her for a vaginal yeast infection. Related Data Home Medications Medication Instructions Recorded Confirmed hydroxyzine HCl 25 mg tablet 25 mg PO PRN PRN Anxiety 07/23/22 02/09/23 alprazolam 0.25 mg tablet 0.25 mg PO PRN PRN Anxiety 02/09/23 02/09/23 chlordiazepoxide HCl 25 mg capsule 25 mg PO BID PRN agitation 02/09/23 02/09/23 sertraline 50 mg tablet 50 mg PO DAILY 02/09/23 02/09/23 trazodone 50 mg tablet 50 mg PO HS 02/09/23 02/09/23 Allergies Allergy/AdvReac Type Severity Reaction Status Date / Time ABX Allergy Unknown Uncoded 07/23/22 14:48 Review of Systems Review of Systems: All systems reviewed & are unremarkable except as noted in HPI and below Constitutional: Constitutional: Reports as per HPI and Reports body ache(s) Eyes: Eyes: Reports no additional eye complaints ENT: Reports as per HPI and Reports sore throat Cardiovascular: Cardiovascular: Reports no additional cardiovascular complaints, Denies chest pain and Denies dyspnea Respiratory: Respiratory: Reports no additional respiratory complaints, Denies chest congestion, Denies cough and Denies dyspnea Gastrointestinal: Gastrointestinal: Reports no additional gastrointestinal complaints, Denies abdominal pain, Denies nausea and Denies vomiting Musculoskeletal: Musculoskeletal: Reports no additional musculoskeletal complaints Integumentary/Breasts: Skin/Breast: Reports system reviewed and no additional complaints, except as docu Neurologic: Reports system reviewed and no additional complaints, except as documented Psychiatric: Psychiatric: Reports no additional psychiatric complaints Allergic/Immunologic: Allergic/Immunologic: Reports no additional allergic/immunologic complaints PMFSH Past Medical History Medical History Depression Surgical History Surgical History History of section Social History Social History Smoking status: Never smoker Alcohol intake: current Drinks per week: 10 Substance use: current Substance use type: marijuana Spiritual care concerns: No Comments At the time of my signature, I reviewed and agree with the nursing past medical, surgical, social, and family history. There is no relevant family history pertinent to the patient complaint. Exam Const: General: cooperative, healthy appearing, comfortable, no acute distress, well developed, alert and well nourished Nutritional Appearance: well nourished Orientation/consciousness: patient oriented x3 Limitations: no limitations HENMT: Head: normal to inspection Ears: hearing grossly normal bilaterally, external ears normal, TM's normal bilaterally and EAC's normal Face/Nose/Sinus: Normal external nose present, Normal nares present, Normal nasal mucous membranes and turbinates present and normal facial exam Face and sinus: normal facial exam Mouth: Yes Normal oral and palatal mucosa present, Yes lip normal and Yes moist mucous membranes Throat: posterior oropharynx normal, uvula midline, abnormal tonsil bilateral erythema and hypertrophy 2+; no exudates and no uvular edema Eyes: General: appearance normal, both eyes and all related structures Alignment and Position: alignment normal Periorbital:
== END 2023-02-09 18:25 | disposition home or self-care (01) ==
PROVIDERS: Emergency Provider Nurse Practitioner; PCP Family Medicine
DX: J03.90 Acute tonsillitis, unspecified (principal); F12.90 Cannabis use, unspecified, uncomplicated; F32.A Depression, unspecified
CPT/HCPCS: 87081; 87880; 99213; G0463

== ENCOUNTER 2023-04-20 10:35 | Observation (INO) | payer OTHER, SELFPAY ==
[2023-04-20] VITALS (18 sets, daily range): BP systolic 124–188; BP diastolic 92–130; PULSE 96–126; RESP 14–38; TEMP 36.8–37.1; O2SAT 96–100; BMI 31.8
--- NOTE | ~2023-04-20 | XR_ITS ---
EXAMINATION: XR chest 2V Exam Date/Time: 04/21/2023 15:14 CDT HISTORY: Chest pain; smoker Comparison: 01/03/2023. RESULT: Lines, tubes, and devices: None. Lungs and pleura: Clear. Cardiomediastinal silhouette: Stable. Other: No acute osseous or upper abdominal finding. IMPRESSION: No acute cardiopulmonary process. Reviewed, dictated and finalized at location K.
[2023-04-20] MEDS: PHENobarbitaL sodium (*CRX) 130 MG/ML VIAL 100 MG IV PUSH (11:16)
[2023-04-20 11:33] LABS: Basophils Percent Auto 0.2 % (0.2-1.2); Hematocrit 41.1 % (37.0-47.0); Hemoglobin 14.3 g/dL (12.0-15.0); Immature Granulocyte Absolute 0.03 K/mm3 (0.00-0.031); Immature Granulocyte Percent A 0.3 % (0-0.5); Lymphocytes Absolute Auto 1.09 K/mm3 (0.9-3.2); Lymphocytes Percent Auto 9.7 % (18.3-44.2); Mean Corpuscular HGB Conc 34.8 g/dl (32-36); Mean Corpuscular Hemoglobin 32.5 pg (26-34); Mean Corpuscular Volume 93.4 fl (80-100); Mean Platelet Volume 9.5 fl (7.4-10.4); Monocytes Absolute Auto 0.5 K/mm3 (0.1-0.6); Monocytes Percent Auto 4.7 % (2.6-8.5); Neutrophils Absolute Auto 9.6 K/mm3 (1.3-6.7); Neutrophils Percent Auto 85.1 % (45.5-73.1); Platelet Count Result 207 k/mm3 (150-375); Red Cell Distribution Width 12.5 % (11.5-14.5); White Blood Count 11.3 K/mm3 (4.5-10.0)
[2023-04-20 11:46] LABS: Alanine Aminotransferase 26 U/L (6-35); Albumin Level 4.2 g/dL (3.5-5.1); Alkaline Phosphatase 59 U/L (38-126); Anion Gap 16 mmol/L (8-16); Aspartate Amino Transferase 29 U/L (14-36); Bilirubin,Total 0.9 mg/dL (0.2-1.3); Blood Urea Nitrogen 6 mg/dL (7-17); Calcium 7.5 mg/dL (8.4-10.2); Carbon Dioxide 13 mmol/L (22-30); Chloride 103 mmol/L (98-107); Estimated CRCL calculation 101 ml/min; Estimated Glomerular Filt Rate > 60; Glucose 90 mg/dL (65-110); Magnesium 1.9 mg/dL (1.6-2.3); Potassium 4.1 mmol/L (3.4-5.0); Sodium 132 mmol/L (137-145)
[2023-04-20] MEDS: SODIUM CHLORIDE 0.9% IV 1,000 ML 999 ML (11:53)
[2023-04-20] MEDS: FOLIC ACID 1 MG/0.2 ML INJ IV PUSH (11:53)
[2023-04-20 12:52] LABS: Appearance Urine Cloudy (Clear); Bacteria Urine Rare /hpf; Bilirubin Urine Negative (Negative); Color Urine Yellow (Yellow); Glucose Urine UA Negative (Negative); Ketones Urine 3+ mg/dL (Negative); Leukocyte Esterase Ur Negative LEU/UL (Negative); Nitrate Urine Negative (Negative); Protein Urine 1+ mg/dL (Negative); RBC Urine 0-2 /hpf (0-2); Specific Grav Ur 1.018 (1.001-1.035); Squamous Epithelial Cell Urine Moderate /hpf (Few); WBC Urine 0-5 /hpf; pH Urine 5.5 (5.0-9.0)
[2023-04-20 12:54] LABS: Add Urine Microscopic? YES
[2023-04-20] MEDS: ONDANSETRON INJ 4 MG/2 ML VIAL IV PUSH ×2 (13:08→15:11)
[2023-04-20 13:20] LABS: Barbiturate Screen Urine Positive (Negative); Benzodiazepines Screen Urine Negative (Negative)
[2023-04-20 13:22] LABS: Amphetamine Screen Urine Negative (Negative); Cannabinoid Screen Urine Positive (Negative); Cocaine Screen Urine Negative (Negative); Methadone Screen Urine Negative (Negative); Opiate Screen Urine Negative (Negative); Phencyclidine Screen Urine Negative (Negative)
--- NOTE | 2023-04-20 13:24 | ED.ALCOHOL ---
HPI - Alcohol General Chief Complaint: Alcohol Stated Complaint: alcohol withdrawal Time Seen by Provider: 04/20/23 10:55 History of Present Illness HPI narrative: This is a 42-year-old female, with history of alcohol abuse, who presents emergency department complaining of alcohol withdrawal. The patient states 2 weeks ago, she stopped taking her Antabuse and began drinking again (1 pint of vodka daily). She states her last pint was last night at 8 PM. She began having nausea and nonbloody vomiting, tactile hallucinations and tremors with headache. She denies visual or auditory hallucinations. She states she had a shot of vodka around 5am this morning without improvement. Related Data Home Medications Medication Instructions Recorded Confirmed trazodone 50 mg tablet 50 mg PO HS 02/09/23 04/20/23 acamprosate 333 mg tablet,delayed 666 mg PO TID 04/20/23 04/20/23 release Allergies Allergy/AdvReac Type Severity Reaction Status Date / Time ABX Allergy Unknown Uncoded 07/23/22 14:48 Review of Systems Review of Systems: CONSTITUTIONAL: Chills and sweats denies fever CARDIOVASCULAR: Palpitations denies chest pain, or edema. RESPIRATORY: Denies cough or dyspnea. GASTROINTESTINAL: Nausea and nonbloody vomiting denies abdominal pain, or diarrhea. GENITOURINARY: Denies dysuria or hematuria. SKIN: Denies rash or itching. MUSCULOSKELETAL: Denies back pain, joint pain, or myalgia. NEUROLOGIC: Headache denies numbness, dizziness, or weakness. PSYCHIATRIC: Denies anxiety or depression. [facility] Past Medical History Medical History (Updated 04/20/23 @ 16:00 by Andria Villeda PA-C) Alcohol abuse Depression Surgical History Surgical History History of section Family History Family History (Updated 04/20/23 @ 16:48 by Mechelle Becker RN) Father Diabetes mellitus Mother Chronic obstructive pulmonary disease Heart disease Grandparent Lung cancer Social History Social History (Updated 04/20/23 @ 15:59 by Andria Villeda PA-C) Social History: Surrogate medical decision maker: Code status: Smoking status: Never smoker Alcohol intake: current Drinks per week: 10 Substance use: current Substance use type: marijuana Lack of Transportation: No Lack of Food: Never True Current Housing: I Have Housing Concerned About Future Housing: No Difficulty Paying Gas/Electric Bills: No Difficulty Paying for Meds: No Currently Unemployed: No Education: High School Diploma/GED Difficulty w/ Childcare or Family Care: No Spiritual care concerns: No Exam Narrative: GENERAL: Well-developed, well-nourished, appears anxious HEAD: Normocephalic, atraumatic. EYES: PERRLA and EOMI. ENT: Nares clear, no rhinorrhea or epistaxis. Mucous membranes moist. Oropharynx without tonsillar hypertrophy exudate or other lesions. CHEST: Clear to auscultation. No respiratory distress. No wheezes rales or rhonchi HEART: Tachycardic with regular rhythm. No murmur heard. Normal peripheral pulses. ABDOMEN: Soft, nontender, nondistended, normal active bowel sounds. EXTREMITIES: Normal range of motion. No edema. SKIN: Warm, dry, no rash. NEURO: Alert and oriented x3. Moving all 4 limbs purposefully. Tremulous. Strength 5/5 in all extremities, sensation intact bilaterally, tongue fasciculations noted. PSYCH: Anxious mood and affect. Course Course Emergency Course: 11:05 - On my evaluation, the patient's CIWA score is 18. We will treat with IV phenobarb and reassess. 12:40 - Repeat CIWA score 8. I attempted to reevaluate the patient, however she is in the bathroom vomiting. CBC demonstrates slightly elevated white blood cell count of 11.3 but is otherwise unremarkable. Chemistries demonstrate mild hyponatremia with sodium of 132 and hypocalcemia of 7.5 but is otherwise unremarkable. UA demonstrates ketonuria, consistent wit
[2023-04-20] MEDS: CALCIUM GLUC 2,000 MG/NS 100ML 2,000 MG/100 ML BAG 100 MG IVPB (14:00)
[2023-04-20] MEDS: DEXTROSE 5%/0.9% SOD CHL 1,000 ML 125 ML IV CONT (15:07)
--- NOTE | 2023-04-20 15:54 | PM.IMHP ---
H&P: HPI History of Present Illness Date/Time: 04/20/23 17:45 Chief Complaint: Alcohol withdrawal. Narrative: This is a 42-year-old female with history of alcohol abuse and depression presented to the emergency department via private vehicle for evaluation of alcohol withdrawal. The patient provides the following history. She is prescribed acamprosate although she stopped taking that 2 weeks ago when she began drinking again. Since that time she has been consuming 1 pint of vodka a day with her last pint being at about 20:00 yesterday evening. Overnight she developed alcohol withdrawal symptoms including nausea, nonbloody emesis, tremors, tactile hallucinations, and headache. She had a shot of vodka at about 05:00 to help quell her symptoms without benefit. On arrival to the ED she was tachycardic and hypertensive with a CIWA score of 18 according to the ED physician. Labs were significant for a WBC count of 11.3, sodium 132, potassium 4.1, carbon dioxide 13, calcium 7.5, magnesium 1.9, normal LFTs, and 3+ ketones in the urine. She was given 100 mg phenobarbital IV, 100 mg thiamine IV, 1 mg folic acid IV, and she has been started on D5/normal saline. She is being admitted in this setting for further treatment of alcohol withdrawal. At the time my evaluation she is resting comfortably. CIWA score is improving. Review of Systems Review of Systems: Twelve systems were reviewed and are negative except for as per HPI. [facility] Past Medical History Medical History (Updated 04/20/23 @ 23:55 by Andria Villeda PA-C) Alcohol abuse Depression Surgical History Surgical History History of section Family History Family History Father Diabetes mellitus Mother Chronic obstructive pulmonary disease Heart disease Grandparent Lung cancer Social History Social History (Updated 04/20/23 @ 23:52 by Andria Villeda PA-C) Social History: Surrogate medical decision maker: Shannon Lopez, friend. Code status: Full code. Smoking status: Never smoker Alcohol intake: current Drinks per week: 10 Substance use: current Substance use type: marijuana Lack of Transportation: No Lack of Food: Never True Current Housing: I Have Housing Concerned About Future Housing: No Difficulty Paying Gas/Electric Bills: No Difficulty Paying for Meds: No Currently Unemployed: No Education: High School Diploma/GED Difficulty w/ Childcare or Family Care: No Additional living arrangements comments: Lives in [place]. Has a 14-year-old son. Additional occupation/education comments: Works at [employer]. Spiritual care concerns: No Meds Home Medications and Allergies Home Medications Medication Instructions Recorded Confirmed Type trazodone 50 mg tablet 50 mg PO HS 02/09/23 04/20/23 History acamprosate 333 mg tablet,delayed 666 mg PO TID 04/20/23 04/20/23 History release Allergies Allergy/AdvReac Type Severity Reaction Status Date / Time ABX Allergy Unknown Uncoded 07/23/22 14:48 Vital Signs Vital Signs - 24 hr 04/20/23 10:38 04/20/23 10:48 04/20/23 11:01 Temperature 98.7 F Pulse Rate 126 H 122 H 121 H Respiratory Rate 22 H 38 H 27 H Blood Pressure 176/124 H 124/103 H 188/130 H Pulse Oximetry 98 99 100 Oxygen Delivery Room Air 04/20/23 12:01 04/20/23 12:31 04/20/23 14:00 Temperature Pulse Rate 104 H 110 H 107 H Respiratory Rate 23 H 20 18 Blood Pressure 154/110 H 180/124 H 157/109 H Pulse Oximetry 98 98 97 Oxygen Delivery 04/20/23 14:31 04/20/23 15:09 Temperature Pulse Rate 104 H 106 H Respiratory Rate 20 Blood Pressure 157/115 H 172/120 H Pulse Oximetry 96 97 Oxygen Delivery Exam Narrative: General: Mildly ill-appearing female in the semi-Platt position in bed. Weight: 76.6 kg. BMI: 31.9. HEENT: PERRL, EOMI. Sclera anicteric
--- NOTE | 2023-04-20 16:54 | ADMGEN ---
This patient, Shruthi Evans, was admitted to IMU Room 231-01. Patient/family oriented to hospital policies and general routines including ID bracelet, bed and alarms, visiting hours, pain management, procedures, bathroom and other care routines, personal items, smoking policy, room service/diet, and visiting hours. Information on how to activate the Rapid Response Team has been discussed. Patient/Family are encouraged to report perceived risks to care and to ask questions if they do not understand what they are told or what they should do.
[2023-04-20] MEDS: LORazepam INJ (*CRX) 2 MG/ML VIAL 4 MG IV PUSH (17:10)
--- NOTE | 2023-04-20 17:25 | PC.NURSE ---
Called NICOLÁS Sanchez regarding pt status. Pt requesting Librium to help with withdraw symptoms and something to drink. Pt's current CIWA is 21 with BP 176/105. 4mg IVP Ativan given per protocol. Pt requesting something to drink. New orders to recheck BP and CIWA in 30 minutes. May start pt on clear liquid diet and advance as tolerated.
--- NOTE | 2023-04-20 18:15 | PC.NURSE ---
RN placed call to NICOLÁS Sanchez regarding pt's BP & CIWA as requested earlier. PA didn't answer, and voicemail was left.
--- NOTE | 2023-04-20 18:49 | PC.NURSE ---
NICOLÁS Sanchez returned call to RN. BP 154/114, CIWA 12. No new orders at this time.
[2023-04-20] MEDS: traZODone HCL 50 MG TABLET PO (20:12)
[2023-04-20] MEDS: chlordiazePOXIDE (*CRX) 25 MG CAPSULE PO (20:12)
[2023-04-20] MEDS: cloNIDine HCL 0.1 MG TABLET 0.5 MG PO (21:37)
[2023-04-21] VITALS (17 sets, daily range): BP systolic 120–158; BP diastolic 79–108; PULSE 75–100; RESP 16–24; TEMP 36.1–36.9; O2SAT 95–100
[2023-04-21] MEDS: DEXTROSE 5%/0.9% SOD CHL 1,000 ML 125 ML IV CONT ×2 (01:24→20:21)
[2023-04-21 05:25] LABS: Basophils Percent Auto 0.3 % (0.2-1.2); Eosinophils Percent Auto 0.4 % (0-4.4); Hematocrit 40.1 % (37.0-47.0); Hemoglobin 14.1 g/dL (12.0-15.0); Immature Granulocyte Absolute 0.02 K/mm3 (0.00-0.031); Immature Granulocyte Percent A 0.3 % (0-0.5); Lymphocytes Absolute Auto 1.57 K/mm3 (0.9-3.2); Lymphocytes Percent Auto 22.2 % (18.3-44.2); Mean Corpuscular HGB Conc 35.2 g/dl (32-36); Mean Corpuscular Hemoglobin 33.4 pg (26-34); Mean Platelet Volume 9.9 fl (7.4-10.4); Monocytes Absolute Auto 0.6 K/mm3 (0.1-0.6); Monocytes Percent Auto 9.1 % (2.6-8.5); Neutrophils Absolute Auto 4.8 K/mm3 (1.3-6.7); Neutrophils Percent Auto 67.7 % (45.5-73.1); Platelet Count Result 176 k/mm3 (150-375); Red Blood Count 4.22 M/mm3 (4.2-5.4); Red Cell Distribution Width 12.7 % (11.5-14.5); White Blood Count 7.1 K/mm3 (4.5-10.0)
[2023-04-21 05:42] LABS: Alanine Aminotransferase 23 U/L (6-35); Albumin Level 3.9 g/dL (3.5-5.1); Alkaline Phosphatase 52 U/L (38-126); Anion Gap 5 mmol/L (8-16); Aspartate Amino Transferase 28 U/L (14-36); Bilirubin,Total 1.5 mg/dL (0.2-1.3); Blood Urea Nitrogen 6 mg/dL (7-17); Calcium 8.5 mg/dL (8.4-10.2); Carbon Dioxide 26 mmol/L (22-30); Chloride 103 mmol/L (98-107); Estimated CRCL calculation 100 ml/min; Estimated Glomerular Filt Rate > 60; Glucose 136 mg/dL (65-110); Magnesium 2.3 mg/dL (1.6-2.3); Potassium 3.4 mmol/L (3.4-5.0); Sodium 134 mmol/L (137-145)
[2023-04-21] MEDS: chlordiazePOXIDE (*CRX) 25 MG CAPSULE PO ×3 (06:26→21:06)
[2023-04-21] MEDS: FOLIC ACID 1 MG TABLET PO (09:47)
[2023-04-21] MEDS: THIAMINE HCL 100 MG TABLET PO (09:47)
--- NOTE | 2023-04-21 12:08 | ECG_ITS ---
Measurements Intervals [place] Rate: 88 P: 29 NC: 147 QRS: 35 QRSD: 84 T: 31 QT: 368 QTc: 446 Interpretive Statements SINUS RHYTHM BASELINE ARTIFACT NONSPECIFIC ST ABNORMALITY BORDERLINE ECG COMPARED TO ECG 01/03/2023 14:01:29 SINUS RHYTHM NOW PRESENT Electronically Signed On 04-21-2023 14:45:14 CDT by Kelvin Friend M.D.
[2023-04-21] MEDS: NITROGLYCERIN SL 0.4 MG TABLET SUBLINGUAL ×2 (12:25→12:30)
[2023-04-21 13:17] LABS: Troponin I < 0.012 ng/mL (0.000-0.034)
--- NOTE | 2023-04-21 13:59 | PM.IMPN ---
Progress Note: A&P Assessment and Plan (1) Alcohol withdrawal: Qualifiers: Complication of substance-induced condition: uncomplicated Qualified Code(s): F10.930 - Alcohol use, unspecified with withdrawal, uncomplicated Code(s): F10.239 - Alcohol dependence with withdrawal, unspecified Status: Acute Assessment and Plan: Patient has been binge drinking last 2 weeks, 1 pint of vodka of day. Last drink 1/7 ago . She received 100 mg IV phenobarbital in the ED with marked improvemen Continue CIWA protocol and Multivitamin (2) Dehydration: Code(s): E86.0 - Dehydration Status: Acute Assessment and Plan: She looks dry on exam and by labs and will be hydrated overnight. Antiemetics available as needed. IVF (3) Alcoholic ketoacidosis: Code(s): E87.29 - Other acidosis Status: Acute Assessment and Plan: Continue D5/NS. (4) Hypocalcemia: Code(s): E83.51 - Hypocalcemia Status: Acute Assessment and Plan: Received 200 mg calcium gluconate in ED. Repeat BMP in a.m. (5) Elevated blood pressure reading: Code(s): R03.0 - Elevated blood-pressure reading, without diagnosis of hypertension Status: Acute Assessment and Plan: In part due to alcohol withdrawal however patient reports that her blood pressure is always high. She was previously on antihypertensives but stopped taking them as they made her feel tired. Clonidine 0.05 mg x1. Continue to monitor closely. Subjective Date/time seen: 04/21/23 13:59 Review of Systems Review of Systems: Twelve systems were reviewed and are negative except for as per HPI. Exam Narrative: General: Mildly ill-appearing female in the semi-Platt position in bed. Weight: 76.6 kg. BMI: 31.9. HEENT: PERRL, EOMI. Sclera anicteric. Tacky mucous membranes. Neck: Supple. Respiratory: Lungs are clear to auscultation bilaterally. Cardiovascular: Tachycardic with normal S1-S2. Gastrointestinal: Abdomen is soft, nontender, and nondistended with positive bowel sounds. Skin: Warm and dry. Mild piloerection. Extremities: No cyanosis, clubbing, or edema. Radial and pedal pulses intact. Neurological: Alert and oriented. Cranial nerves 2-12 are grossly intact. Speech is clear. No facial asymmetry. Faint tremors of the hands. no gross focal deficits to casual conversation. Psychiatric: Pleasant and cooperative with normal mood and affect. Judgment and insight intact. Objective Data Vital Signs Vital Signs: Vital Signs - 24 hr 04/20/23 14:00 04/20/23 14:31 04/20/23 15:09 Temperature Pulse Rate 107 H 104 H 106 H Respiratory Rate 18 20 Blood Pressure 157/109 H 157/115 H 172/120 H Pulse Oximetry 97 96 97 Oxygen Delivery 04/20/23 15:14 04/20/23 15:31 04/20/23 16:57 Temperature 98.3 F Pulse Rate 112 H 106 H 102 H Respiratory Rate 18 17 14 Blood Pressure 167/92 H 165/112 H 176/105 H Pulse Oximetry 99 97 97 Oxygen Delivery 04/20/23 18:09 04/20/23 18:10 04/20/23 16:42 Temperature Pulse Rate Respiratory Rate Blood Pressure 154/114 H 154/114 H Pulse Oximetry 97 Oxygen Delivery Room Air 04/20/23 18:00 04/20/23 20:00 04/20/23 20:00 Temperature Pulse Rate 107 H 96 119 H Respiratory Rate 16 Blood Pressure 152/100 H Pulse Oximetry 97 Oxygen Delivery 04/20/23 22:00 04/21/23 00:00 04/21/23 00:00 Temperature 97 F L Pulse Rate 100 98 100 Respiratory Rate 20 Blood Pressure 121/79 Pulse Oximetry 95 Oxygen Delivery 04/21/23 02:37 04/21/23 00:25 04/21/23 02:00 Temperature Pulse Rate 98 Respiratory Rate Blood Pressure 120/80 120/83 Pulse Oximetry Oxygen Delivery 04/21/23 04:00 04/21/23 04:35 04/21/23 06:00 Temperature 97 F L Pulse Rate 75 83 86 Respiratory Rate 16 Blood Pressure 131/93 H Pulse Oximetry 99 Oxygen Delivery 04/21/23 08:00 04/21/23 11:07
[2023-04-21] MEDS: traZODone HCL 50 MG TABLET PO (20:17)
[2023-04-22] VITALS: PULSE 74
[2023-04-22 02:00] VITALS: PULSE 82
[2023-04-22 04:00] VITALS: BP 173/111; PULSE 76; PULSE 82; RESP 16; TEMP 36.3; O2SAT 100
[2023-04-22] MEDS: chlordiazePOXIDE (*CRX) 25 MG CAPSULE PO (05:22)
[2023-04-22 05:31] LABS: Basophils Percent Auto 0.6 % (0.2-1.2); Eosinophils Absolute Auto 0.1 K/mm3 (0-0.3); Eosinophils Percent Auto 1.7 % (0-4.4); Hematocrit 38.8 % (37.0-47.0); Hemoglobin 13.4 g/dL (12.0-15.0); Immature Granulocyte Absolute 0.02 K/mm3 (0.00-0.031); Immature Granulocyte Percent A 0.4 % (0-0.5); Lymphocytes Absolute Auto 1.71 K/mm3 (0.9-3.2); Lymphocytes Percent Auto 32.5 % (18.3-44.2); Mean Corpuscular HGB Conc 34.5 g/dl (32-36); Mean Corpuscular Hemoglobin 33.3 pg (26-34); Mean Corpuscular Volume 96.3 fl (80-100); Mean Platelet Volume 9.9 fl (7.4-10.4); Monocytes Absolute Auto 0.5 K/mm3 (0.1-0.6); Monocytes Percent Auto 9.7 % (2.6-8.5); Neutrophils Absolute Auto 2.9 K/mm3 (1.3-6.7); Neutrophils Percent Auto 55.1 % (45.5-73.1); Platelet Count Result 153 k/mm3 (150-375); Red Blood Count 4.03 M/mm3 (4.2-5.4); Red Cell Distribution Width 13.1 % (11.5-14.5); White Blood Count 5.3 K/mm3 (4.5-10.0)
[2023-04-22 05:48] LABS: Alanine Aminotransferase 22 U/L (6-35); Albumin Level 3.6 g/dL (3.5-5.1); Alkaline Phosphatase 49 U/L (38-126); Anion Gap 6 mmol/L (8-16); Aspartate Amino Transferase 23 U/L (14-36); Bilirubin,Total 0.4 mg/dL (0.2-1.3); Blood Urea Nitrogen 7 mg/dL (7-17); Calcium 8.1 mg/dL (8.4-10.2); Carbon Dioxide 24 mmol/L (22-30); Chloride 105 mmol/L (98-107); Estimated CRCL calculation 99 ml/min; Estimated Glomerular Filt Rate > 60; Glucose 119 mg/dL (65-110); Lactic Acid Reflex 1.2 mmol/L (0.7-2.0); Potassium 3.4 mmol/L (3.4-5.0); Sodium 135 mmol/L (137-145)
[2023-04-22 06:00] VITALS: PULSE 83
--- NOTE | 2023-04-22 08:32 | PM.DS ---
DS: Admitting Diagnosis Discharge Date 04/22/23 Admitting Diagnosis 04/22/23 DS: Summary Hospital Course Hospital Course: This is a 42-year-old female with history of alcohol abuse and depression presented to the emergency department via private vehicle for evaluation of alcohol withdrawal. The patient provides the following history. She is prescribed acamprosate although she stopped taking that 2 weeks ago when she began drinking again. Since that time she has been consuming 1 pint of vodka a day with her last pint being at about 20:00 yesterday evening. Overnight she developed alcohol withdrawal symptoms including nausea, nonbloody emesis, tremors, tactile hallucinations, and headache. She had a shot of vodka at about 05:00 to help quell her symptoms without benefit. On arrival to the ED she was tachycardic and hypertensive with a CIWA score of 18 according to the ED physician. Labs were significant for a WBC count of 11.3, sodium 132, potassium 4.1, carbon dioxide 13, calcium 7.5, magnesium 1.9, normal LFTs, and 3+ ketones in the urine. She was given 100 mg phenobarbital IV, 100 mg thiamine IV, 1 mg folic acid IV, and she has been started on D5/normal saline. She is being admitted in this setting for further treatment of alcohol withdrawal. At the time my evaluation she is resting comfortably. CIWA score is improving. Patient left AMA this morning. Assessment and Plan (1) Alcohol withdrawal: ?Qualifiers: ?Complication of substance-induced condition:?uncomplicated? Qualified Code(s):?F10.930 - Alcohol use, unspecified with withdrawal, uncomplicated ?Code(s): F10.239 - Alcohol dependence with withdrawal, unspecified ?Status:?Acute ?Assessment and Plan: Patient has been binge drinking last 2 weeks, 1 pint of vodka of day.? Last drink 2/7 ago . She received 100 mg IV phenobarbital in the ED with marked improvemen Continue CIWA protocol and Multivitamin (2) Dehydration: ?Code(s): E86.0 - Dehydration ?Status:?Acute ?Assessment and Plan: on IVF, resolving (3) Alcoholic ketoacidosis: ?Code(s): E87.29 - Other acidosis ?Status:?Acute ?Assessment and Plan: Continue D5/NS. (4) Hypocalcemia: ?Code(s): E83.51 - Hypocalcemia ?Status:?Acute ?Assessment and Plan: s/p 200 mg calcium gluconate in ED (5) Elevated blood pressure reading: ?Code(s): R03.0 - Elevated blood-pressure reading, without diagnosis of hypertension ?Status:?Acute ?Assessment and Plan: In part due to alcohol withdrawal however patient reports that her blood pressure is always high.? She was previously on antihypertensives but stopped taking them as they made her feel tired. Clonidine 0.05 mg x1. Continue to monitor closely. CHest pain patient complained of chest pain yesterday, Troponin, EKG and CXR were unremarkable cardiology was consulted however patient signed out AMA this morning Time Spent with Patient Time attestation: Total time spent providing and/or coordinating discharge services: DS: Data Data Completed and Pending Labs on day of discharge: Labs from last 24 hours 04/22/23 04/21/23 05:22 12:50 WBC 5.3 RBC 4.03 L Hgb 13.4 Hct 38.8 MCV 96.3 MCH 33.3 MCHC 34.5 RDW 13.1 Plt Count 153 MPV 9.9 Immature Gran % (Auto) 0.4 Neut % (Auto) 55.1 Lymph % (Auto) 32.5 Bowie % (Auto) 9.7 H Eos % (Auto) 1.7 Baso % (Auto) 0.6 Lymph # (Auto) 1.71 Bowie # (Auto) 0.5 Eos # (Auto) 0.1 Baso # (Auto) 0.0 Abs Immat Gran (auto) 0.02 Absolute Neuts (auto) 2.9 Absolute Nucleated RBC 0.0 Nucleated RBC % 0.0 Sodium 135 L Potassium 3.4 Chloride 105 Carbon Dioxide 24 Anion Gap 6 L BUN 7 Creatinine 0.60 L Estim Creat Clear Calc 99 Estimated GFR > 60 Glucose 119 H Lactic Acid 1.2 Calcium 8.1 L Magnesium 2.0 Total Bilirubin 0.4 AST 23 ALT 22 Alkaline Phosphatase 49
--- NOTE | 2023-04-22 09:33 | PM.CNCAR ---
Assessment and Plan Assessment and plan (1) Chest pain: Code(s): R07.9 - Chest pain, unspecified Status: Acute Assessment and Plan: Patient left against medical advice prior to being seen in consultation. ECG without acute ischemic changes and initial troponin negative at <0.012. History of Present Illness History of Present Illness Consult date/time: Date of service: 04/22/23 09:33 Requesting physician: Tami Narvaez MD Consult reason: chest pain Reason For Visit: Alcohol Withdrawal Narrative: Patient left against medical advice prior to being seen. Therefore, consultation as ordered unable to be performed. [facility] Past Medical History Medical History Alcohol abuse Depression Surgical History Surgical History History of section Family History Family History Father Diabetes mellitus Mother Chronic obstructive pulmonary disease Heart disease Grandparent Lung cancer Social History Social History Social History: Surrogate medical decision maker: Shannon Aguillonon, friend. Code status: Full code. Smoking status: Never smoker Alcohol intake: current Drinks per week: 10 Substance use: current Substance use type: marijuana Lack of Transportation: No Lack of Food: Never True Current Housing: I Have Housing Concerned About Future Housing: No Difficulty Paying Gas/Electric Bills: No Difficulty Paying for Meds: No Currently Unemployed: No Education: High School Diploma/GED Difficulty w/ Childcare or Family Care: No Additional living arrangements comments: Lives in [place]. Has a 14-year-old son. Additional occupation/education comments: Works at [employer]. Spiritual care concerns: No Meds Home Medications and Allergies Home Medications Medication Instructions Recorded Confirmed Type trazodone 50 mg tablet 50 mg PO HS 02/09/23 04/20/23 History acamprosate 333 mg tablet,delayed 666 mg PO TID 04/20/23 04/20/23 History release Allergies Allergy/AdvReac Type Severity Reaction Status Date / Time ABX Allergy Unknown Uncoded 07/23/22 14:48 Vital Signs Vital Signs - 24 hr 04/21/23 11:07 04/21/23 12:00 04/21/23 12:00 Temperature 36.5 C Pulse Rate 91 Respiratory Rate 24 H Blood Pressure 147/93 H 137/98 H Pulse Oximetry 98 100 Oxygen Delivery Room Air 04/21/23 10:00 04/21/23 12:00 04/21/23 14:00 Temperature Pulse Rate 88 93 90 Respiratory Rate Blood Pressure Pulse Oximetry Oxygen Delivery 04/21/23 16:00 04/21/23 16:00 04/21/23 16:00 Temperature 36.7 C Pulse Rate 88 90 Respiratory Rate 16 Blood Pressure 137/98 H 158/108 H Pulse Oximetry 97 Oxygen Delivery 04/21/23 19:24 04/21/23 23:44 04/21/23 20:00 Temperature 36.9 C 36.2 C L Pulse Rate 83 84 88 Respiratory Rate 16 16 Blood Pressure 157/105 H 134/92 H Pulse Oximetry 99 98 Oxygen Delivery 04/21/23 22:00 04/22/23 00:00 04/22/23 02:00 Temperature Pulse Rate 98 74 82 Respiratory Rate Blood Pressure Pulse Oximetry Oxygen Delivery 04/22/23 04:00 04/22/23 04:00 04/22/23 06:00 Temperature 36.3 C L Pulse Rate 76 82 83 Respiratory Rate 16 Blood Pressure 173/111 H Pulse Oximetry 100 Oxygen Delivery Results Labs and Meds 04/22/23 05:22 04/22/23 05:22 Lab results: Cardiac Enzymes 04/21/23 04/22/23 Range/Units 12:50 05:22 AST 23 (14-36) U/L Troponin I < 0.012 (0.000-0.034) ng/mL CBC 04/22/23 Range/Units 05:22 WBC 5.3 (4.5-10.0) K/mm3 RBC 4.03 L (4.2-5.4) M/mm3 Hgb 13.4 (12.0-15.0) g/dL Hct 38.8 (37.0-47.0) % Plt Count 153 (150-375) k/mm3 Lymph # (Auto) 1.71 (0.9-3.2) K/mm3 Osborne # (Au
== END 2023-04-22 07:55 | disposition left against medical advice (07) ==
LOC: ANHED 13:31 → ANHIMU 15:00
PROVIDERS: Physician Assistant; Admitting Provider Internal Medicine; Emergency Provider Preventive Medicine Aerospace Medicine; PCP Family Medicine; Visit Provider Internal Medicine
DX: F10.139 Alcohol abuse with withdrawal, unspecified (principal); F12.90 Cannabis use, unspecified, uncomplicated; R11.2 Nausea with vomiting, unspecified; R25.1 Tremor, unspecified; R44.2 Other hallucinations; R56.9 Unspecified convulsions; E86.0 Dehydration; R03.0 Elevated blood-pressure reading, without diagnosis of hypertension; E83.51 Hypocalcemia; E87.29 Other acidosis; R00.0 Tachycardia, unspecified; R68.83 Chills (without fever); R61 Generalized hyperhidrosis; F32.A Depression, unspecified; Z79.899 Other long term (current) drug therapy
CPT/HCPCS: 36415; 71046; 80048; 80053; 80076; 80307; 81001; 81025; 83605; 83735; 84443; 84484; 85025; 93005; 96360; 96361; 96365; 96375; 99211; 99285; A9270; G0378; G0379; G0463; J0613; J2060; J2405; J2560; J7030; J7042

== ENCOUNTER 2023-04-22 18:02 | Emergency (ER) | payer OTHER, SELFPAY ==
--- NOTE | 2023-04-22 18:07 | ED.GENADULT ---
HPI - General Adult General Chief complaint: Unspecified Stated complaint: anxiety Time Seen by Provider: 04/22/23 18:07 Source: patient Mode of arrival: ambulatory Limitations: no limitations History of Present Illness HPI narrative: 42-year-old female patient presents to the [facility] with request for return to work note. Patient was admitted to [facility] on Friday 04/20 for alcohol withdrawal and hypertension. Patient was admitted to the hospital and was supposed to have a cardiology workup today however patient left AMA this morning. Patient states that she found out when she got home that her boss needed a return to work note and therefore she is coming in today to try and get a work note to say that she is okay to return to work. Patient is also requesting lithium today. Patient is not currently intoxicated. Denies any shaking, chest pain or shortness of breath. Related Data Home Medications Medication Instructions Recorded Confirmed trazodone 50 mg tablet 50 mg PO HS 02/09/23 04/22/23 acamprosate 333 mg tablet,delayed 666 mg PO TID 04/20/23 04/22/23 release Allergies Allergy/AdvReac Type Severity Reaction Status Date / Time ABX Allergy Unknown Uncoded 07/23/22 14:48 Review of Systems Review of Systems: CONSTITUTIONAL: Denies fever, chills, or sweats. EYES: Denies visual changes, redness, or discharge. ENT: Denies rhinorrhea, congestion, sore throat, or otalgia. CARDIOVASCULAR: Denies chest pain, palpitations, or edema. RESPIRATORY: Denies cough or dyspnea. GASTROINTESTINAL: Denies abdominal pain, nausea, vomiting, or diarrhea. GENITOURINARY: Denies dysuria or hematuria. SKIN: Denies rash or itching. MUSCULOSKELETAL: Denies back pain, joint pain, or myalgia. NEUROLOGIC: Denies headache, numbness, or weakness. PSYCHIATRIC: Denies anxiety or depression. [facility] Past Medical History Medical History Alcohol abuse Depression cardiomyopathy Preeclampsia Surgical History Surgical History History of section Family History Family History Father Diabetes mellitus Mother Chronic obstructive pulmonary disease Heart disease Grandparent Lung cancer Social History Social History Social History: Surrogate medical decision maker: Shannon Lopez, friend. Code status: Full code. Smoking status: Never smoker Alcohol intake: current Drinks per week: 10 Substance use: current Substance use type: marijuana Lack of Transportation: No Lack of Food: Never True Current Housing: I Have Housing Concerned About Future Housing: No Difficulty Paying Gas/Electric Bills: No Difficulty Paying for Meds: No Currently Unemployed: No Education: High School Diploma/GED Difficulty w/ Childcare or Family Care: No Additional living arrangements comments: Lives in [place]. Has a 14-year-old son. Additional occupation/education comments: Works at [employer]. Spiritual care concerns: No Comments At the time of my signature I agree with nursing past medical history, surgical, social, and family history. There is no relevant family history pertinent to the presenting complaint. Exam Narrative: GENERAL: Well-appearing, well-nourished, and in no acute distress. HEAD: Normocephalic, atraumatic. EYES: PERRLA and EOMI. ENT: Nares clear, no rhinorrhea or epistaxis. Mucous membranes moist. NECK: Supple. No lymphadenopathy CHEST: Clear to auscultation. No respiratory distress. HEART: Regular rate and rhythm. No murmur heard. Normal peripheral pulses. ABDOMEN: Soft, nontender, nondistended, normal active bowel sounds. EXTREMITIES: Normal range of motion. No edema. SKIN: Warm, dry, no rash. NEURO: No focal deficits. Alert and oriented x3.
[2023-04-22 18:11] VITALS: BP 154/115; PULSE 85; RESP 18; TEMP 36.6; O2SAT 99
[2023-04-22 18:13] VITALS: BP 154/115; PULSE 85; RESP 18; TEMP 36.6; O2SAT 99
== END 2023-04-22 18:26 | disposition left against medical advice (07) ==
PROVIDERS: Emergency Provider Nurse Practitioner Family; PCP Family Medicine
DX: F10.239 Alcohol dependence with withdrawal, unspecified (principal); I10 Essential (primary) hypertension; F12.90 Cannabis use, unspecified, uncomplicated; F32.A Depression, unspecified
CPT/HCPCS: 99211; G0463

== ENCOUNTER 2023-11-18 11:32 | Emergency (ER) | payer OTHER, SELFPAY ==
[2023-11-18 11:55] VITALS: BP 155/99; PULSE 75; RESP 18; TEMP 36.6; O2SAT 100
--- NOTE | 2023-11-18 12:59 | ED.FEMALEGU ---
HPI - Female Genitourinary General Chief complaint: Urogenital-Female Stated complaint: uti, fever and chills Time Seen by Provider: 11/18/23 12:52 Source: patient and RN notes reviewed Mode of arrival: ambulatory Limitations: no limitations History of Present Illness HPI Narrative: Patient presents today complaining of a 2 day history of dysuria, chills, frequency. Denies any additional symptoms to include abdominal pain, back pain, fever. No [id number] treatment prior to arrival. Related Data Home Medications Medication Instructions Recorded Confirmed escitalopram oxalate 5 mg tablet mg 11/18/23 phentermine 15 mg capsule mg 11/18/23 trazodone 50 mg tablet mg 11/18/23 Allergies Allergy/AdvReac Type Severity Reaction Status Date / Time No Known Allergies Allergy Verified 11/18/23 12:20 Review of Systems Review of Systems: CONSTITUTIONAL: Denies body aches, fever, or sweats.+ chills EYES: Denies visual changes, redness, or discharge. ENT: Denies rhinorrhea, congestion, sore throat, or otalgia. CARDIOVASCULAR: Denies chest pain, palpitations, or edema. RESPIRATORY: Denies cough or dyspnea. GASTROINTESTINAL: Denies abdominal pain, nausea, vomiting, or diarrhea. GENITOURINARY:+ dysuria, frequency SKIN: Denies rash, itching, or wounds. MUSCULOSKELETAL: Denies back pain, joint pain, or myalgia. NEUROLOGIC: Denies headache, numbness, tingling, or weakness. PSYCH: Denies depression or anxiety. [facility] Past Medical History Medical History Alcohol abuse Depression cardiomyopathy Preeclampsia Surgical History Surgical History History of section Family History Family History Father Diabetes mellitus Mother Chronic obstructive pulmonary disease Heart disease Grandparent Lung cancer Social History Social History Social History: Surrogate medical decision maker: Shannon Lopez, friend. Code status: Full code. Smoking status: Never smoker Alcohol intake: current Drinks per week: 10 Substance use: current Substance use type: marijuana Lack of Transportation: No Lack of Food: Never True Current Housing: I Have Housing Concerned About Future Housing: No Difficulty Paying Gas/Electric Bills: No Difficulty Paying for Meds: No Currently Unemployed: No Education: High School Diploma/GED Difficulty w/ Childcare or Family Care: No Additional living arrangements comments: Lives in [place]. Has a 14-year-old son. Additional occupation/education comments: Works at [employer]. Spiritual care concerns: No Comments At time of signature, I have reviewed and agree with nursing past medical, surgical, social and family history unless otherwise noted. Please see nursing chart for further information. There is no relevant family history pertinent to the presenting complaint Exam Narrative: GENERAL: Well-appearing, well-nourished, and in no acute distress. HEAD: Normocephalic, atraumatic. EYES: EOMI. No redness or drainage. Conjunctivae normal. ENT: Mucous membranes pink and moist. NECK: Normal AROM. CHEST: No respiratory distress. Clear to auscultation. HEART: Regular rate and rhythm. No murmur appreciated. Normal peripheral pulses. ABDOMEN: Soft, nontender, nondistended, normal active bowel sounds.-CVAT MUSCULOSKELETAL: No bony tenderness. EXTREMITIES: Normal range of motion. No edema. SKIN: Warm, dry, no rash. Capillary refill normal. Normal skin turgor. NEURO: No focal deficits. Alert and oriented x3. Gait steady. PSYCH: Normal affect. No signs of depression or anxiety. Course Course Level of Care: Express Care Visit Vital Signs Vital signs: Vital Signs Temperature 97.8 F 11/18/23 11:5
== END 2023-11-18 13:08 | disposition home or self-care (01) ==
PROVIDERS: Emergency Provider Nurse Practitioner; PCP Family Medicine
DX: N30.01 Acute cystitis with hematuria (principal); B95.1 Streptococcus, group B, as the cause of diseases classified elsewhere; F12.90 Cannabis use, unspecified, uncomplicated
CPT/HCPCS: 81003; 87077; 87086; 87088; 99213; G0463

== ENCOUNTER 2023-12-21 11:30 | Emergency (ER) | payer OTHER, SELFPAY ==
[2023-12-21 11:32] VITALS: BP 159/115; PULSE 129; RESP 18; TEMP 36.1; O2SAT 99
[2023-12-21 11:57] VITALS: BP 161/121; PULSE 132; O2SAT 99
[2023-12-21 12:00] LABS: Basophils Absolute Auto 0.1 K/mm3 (0.0-0.1); Basophils Percent Auto 0.4 % (0.2-1.2); Hematocrit 47.3 % (37.0-47.0); Hemoglobin 16.9 g/dL (12.0-15.0); Immature Granulocyte Absolute 0.06 K/mm3 (0.00-0.031); Immature Granulocyte Percent A 0.5 % (0-0.5); Lymphocytes Absolute Auto 1.14 K/mm3 (0.9-3.2); Lymphocytes Percent Auto 9.4 % (18.3-44.2); Mean Corpuscular HGB Conc 35.7 g/dl (32-36); Mean Corpuscular Hemoglobin 34.4 pg (26-34); Mean Corpuscular Volume 96.3 fl (80-100); Mean Platelet Volume 9.6 fl (7.4-10.4); Monocytes Absolute Auto 0.8 K/mm3 (0.1-0.6); Monocytes Percent Auto 6.4 % (2.6-8.5); Neutrophils Absolute Auto 10.1 K/mm3 (1.3-6.7); Neutrophils Percent Auto 83.3 % (45.5-73.1); Platelet Count Result 293 k/mm3 (150-375); Red Blood Count 4.91 M/mm3 (4.2-5.4); Red Cell Distribution Width 12.8 % (11.5-14.5); White Blood Count 12.2 K/mm3 (4.5-10.0)
[2023-12-21] MEDS: ONDANSETRON INJ 4 MG/2 ML VIAL IV PUSH (12:07)
[2023-12-21] MEDS: SODIUM CHLORIDE 0.9% IV 1,000 ML 999 ML IV CONT ×2 (12:07→12:59)
[2023-12-21 12:10] LABS: Alanine Aminotransferase 32 U/L (6-35); Albumin Level 5.4 g/dL (3.5-5.1); Alkaline Phosphatase 92 U/L (38-126); Anion Gap 22 mmol/L (4-12); Aspartate Amino Transferase 50 U/L (14-36); Bilirubin,Total 0.8 mg/dL (0.2-1.3); Blood Urea Nitrogen 15 mg/dL (7-17); Calcium 9.3 mg/dL (8.4-10.2); Carbon Dioxide 17 mmol/L (22-30); Chloride 99 mmol/L (98-107); Estimated CRCL calculation 80 ml/min; Estimated Glomerular Filt Rate > 60; Glucose 154 mg/dL (65-110); Lipase 45 U/L (23-300); Potassium 4.2 mmol/L (3.4-5.0); Sodium 138 mmol/L (137-145)
[2023-12-21 12:31] LABS: Appearance Urine Clear (Clear); Bacteria Urine None Seen /hpf; Bilirubin Urine Negative (Negative); Blood Urine 1+ (Negative); Color Urine Yellow (Yellow); Glucose Urine UA Negative (Negative); Ketones Urine 3+ mg/dL (Negative); Leukocyte Esterase Ur Negative LEU/UL (Negative); Need Manual Microscopic Reviewed; Nitrate Urine Negative (Negative); Protein Urine 2+ mg/dL (Negative); RBC Urine 0-2 /hpf (0-2); Specific Grav Ur 1.026 (1.001-1.035); Squamous Epithelial Cell Urine Occasional /hpf (Few); Urobilinogen Urine 0.2 mg/dL (<2.0); pH Urine 5.5 (5.0-9.0)
[2023-12-21 12:35] LABS: Add Urine Microscopic? YES
--- NOTE | 2023-12-21 12:48 | ED.GENADULT ---
HPI - General Adult General Chief complaint: Nausea/Vomiting/Diarrhea Stated complaint: severe alcohol poisoning Time Seen by Provider: 12/21/23 12:12 History of Present Illness HPI narrative: Patient is a 42-year-old female who presents to the emergency department this afternoon complaining of nausea and vomiting. Patient admits that she is an alcoholic and was sober for 5 months and relapsed 3 days ago. Patient has been drinking excessively for the past 3 days and states that her last drink was approximately 12 hours ago. Patient states that shortly prior to arrival she was at work and started to feel very sick, started to have nausea, vomiting, and tremors. Patient is concerned that she is withdrawing from alcohol. She also admits that she stopped her Lexapro 3 days ago when she started drinking and she has been on the Lexapro for the past 5 months. She currently denies any chest pain, shortness of breath, any abdominal pain. No additional symptoms or concerns at this time. Related Data Home Medications Medication Instructions Recorded Confirmed escitalopram oxalate 5 mg tablet mg 11/18/23 phentermine 15 mg capsule mg 11/18/23 trazodone 50 mg tablet mg 11/18/23 Allergies Allergy/AdvReac Type Severity Reaction Status Date / Time No Known Allergies Allergy Verified 11/18/23 12:20 Review of Systems Review of Systems: All systems are reviewed and are negative unless stated otherwise in the HPI. [facility] Past Medical History Medical History Alcohol abuse Depression cardiomyopathy Preeclampsia Surgical History Surgical History History of section Family History Family History Father Diabetes mellitus Mother Chronic obstructive pulmonary disease Heart disease Grandparent Lung cancer Social History Social History Social History: Surrogate medical decision maker: Shannon Lopez, friend. Code status: Full code. Smoking status: Never smoker Alcohol intake: current Drinks per week: 10 Substance use: current Substance use type: marijuana Lack of Transportation: No Lack of Food: Never True Current Housing: I Have Housing Concerned About Future Housing: No Difficulty Paying Gas/Electric Bills: No Difficulty Paying for Meds: No Currently Unemployed: No Education: High School Diploma/GED Difficulty w/ Childcare or Family Care: No Additional living arrangements comments: Lives in [place]. Has a 14-year-old son. Additional occupation/education comments: Works at [employer]. Spiritual care concerns: No Exam Narrative: General: Alert, awake, afebrile, in moderate distress , actively dry heaving. HEENT: PERRL, no rhinorrhea, no post nasal drip, oropharynx clear. Cardiovascular: Regular rate and rhythm, no murmurs, rubs or gallops, no peripheral edema. Respiratory: Clear to auscultation bilaterally, no tachypnea, no wheezing, no rhonchi, no rubs, no respiratory distress. Abdomen: Soft, nontender, nondistended, no rebound, no guarding, no peritoneal signs. Musculoskeletal: No joint swelling or deformity, normal muscle tone. Skin: No rashes or petechia, no signs of infection. Psychiatric: Alert and oriented, normal behavior and judgment for situation. Neurological: Alert and oriented to person, place, and time. Follows all commands. No focal deficits, speech is clear and fluent. Course Vital Signs Vital signs: Vital Signs Temperature 97.0 F L 12/21/23 11:32 Pulse Rate 129 H 12/21/23 11:32 Respiratory Rate 18 12/21/23 11:32 Blood Pressure 159/115 H 12/21/23 11:32 Pulse Oximetry 99 12/21/23 11:32 Oxygen Delivery Room Air 12/21/23 11:32 Temperature 97.0 F L 12/21/23 11:32 Pulse Rate 94 12/21/23 13:
[2023-12-21] MEDS: diphenhydrAMINE HCl INJ 50 MG/ML VIAL 25 MG IV PUSH (12:52)
[2023-12-21] MEDS: METOCLOPRAMIDE HCL INJ 10 MG/2 ML VIAL IV PUSH (12:53)
[2023-12-21 13:55] VITALS: BP 159/107; PULSE 94; RESP 26; O2SAT 98
[2023-12-21 14:02] LABS: Ethanol 13 mg/dL (<10)
[2023-12-21 14:03] LABS: Lactic Acid Reflex 3.9 mmol/L (0.7-2.0)
[2023-12-21 16:47] LABS: Reflex Lactic Acid Yes or No Add Lactic
== END 2023-12-21 15:23 | disposition home or self-care (01) ==
PROVIDERS: Emergency Medicine; Emergency Provider Emergency Medicine; PCP Family Medicine
DX: F10.239 Alcohol dependence with withdrawal, unspecified (principal); R11.2 Nausea with vomiting, unspecified; E86.0 Dehydration; F32.A Depression, unspecified; Y90.0 Blood alcohol level of less than 20 mg/100 ml
CPT/HCPCS: 36415; 80053; 80307; 81001; 81025; 83605; 83690; 85025; 87086; 96361; 96374; 96375; 99284; J1200; J2405; J2765; J7030

== ENCOUNTER 2023-12-29 07:32 | Observation (INO) | payer SELFPAY ==
[2023-12-29] VITALS (7 sets, daily range): BP systolic 129–145; BP diastolic 73–101; PULSE 85–110; RESP 14–20; TEMP 36.5–37.4; O2SAT 96–100
--- NOTE | ~2023-12-29 | CT_ITS ---
EXAMINATION: CT abdomen pelvis w con DATE: 12/29/2023 09:16 INDICATION: Lower abdominal pain. TECHNIQUE: Computed tomography (CT) of the abdomen and pelvis was performed with 100 mL Omnipaque 350 intravenous contrast. Automated exposure control and iterative reconstruction technique were employe d. The dose-length product was 469.74 mGy-cm. COMPARISON: CT abdomen and pelvis 11/13/2021 FINDINGS: The visualized portions of the lung bases demonstrate mild atelectasis. No pleural effusion . The heart size is normal. No pericardial effusion. There is diffuse hepatic steatosis. The gallblad jessy, spleen, pancreas, adrenal glands, and kidneys are normal. There are no dilated loops of bowel. T he appendix is normal. There are no pathologically enlarged lymph nodes. There is no free intraperito lashawn fluid. There is a 6.3 x 4.5 cm perianal abscess containing stool. There is mild lumbar spondylos is. IMPRESSION: 1. Perianal abscess containing stool. Reviewed, dictated and finalized at location A.
--- NOTE | 2023-12-29 08:19 | ED.GENADULT ---
HPI - General Adult General Chief complaint: Abdominal Pain Stated complaint: LOWER ABD PAIN X5D Time Seen by Provider: 12/29/23 07:34 History of Present Illness HPI narrative: Patient is a 43-year-old female who presents ER with pain to her buttock region for the last 3-5 days. It is tender to touch and to sit on. It makes her feel like she has to have a bowel movement but she cannot. No urinary frequency urgency or dysuria. No lower abdominal pain. She reports this is separate from her ER visit several days ago. No alleviating factors. Has pain with sitting. Related Data Home Medications Medication Instructions Recorded Confirmed escitalopram oxalate 5 mg tablet 10 mg PO DAILY 11/18/23 12/29/23 trazodone 50 mg tablet 50 mg PO HS PRN Insomnia 11/18/23 12/29/23 Allergies Allergy/AdvReac Type Severity Reaction Status Date / Time No Known Allergies Allergy Verified 11/18/23 12:20 Review of Systems Review of Systems: All systems reviewed & are unremarkable except as noted in HPI and below Constitutional: Constitutional: Reports no additional constitutional complaints ENT: Reports system reviewed and no additional complaints, except as documented Cardiovascular: Cardiovascular: Reports no additional cardiovascular complaints Respiratory: Respiratory: Reports no additional respiratory complaints Gastrointestinal: Gastrointestinal: Denies abdominal pain, Reports constipation, Denies diarrhea, Denies nausea and Denies vomiting Comments: Perirectal pain Genitourinary: Genitourinary: Reports no additional female genitourinary complaints [facility] Past Medical History Medical History Alcohol abuse Depression cardiomyopathy Preeclampsia Surgical History Surgical History History of section Family History Family History Father Diabetes mellitus Mother Chronic obstructive pulmonary disease Heart disease Grandparent Lung cancer Social History Social History Social History: Surrogate medical decision maker: Shannon Lopez, friend. Code status: Full code. Smoking status: Never smoker Alcohol intake: current Drinks per week: 3 Substance use: never Substance use type: marijuana Do You Feel Safe in your Home?: Yes Lack of Transportation: YES Lack of Food: Never True Current Housing: I Have Housing Concerned About Future Housing: No Difficulty Paying Gas/Electric Bills: No Difficulty Paying for Meds: No Currently Unemployed: No Education: High School Diploma/GED Difficulty w/ Childcare or Family Care: No Additional living arrangements comments: Lives in [place]. Has a 14-year-old son. Additional occupation/education comments: Works at [employer]. Spiritual care concerns: No Exam Narrative: GENERAL: uncomfortable-appearing, well-nourished, and in no acute distress. HEAD: Normocephalic, atraumatic. ENT: Mucous membranes moist. CHEST: Clear to auscultation. No respiratory distress. HEART: Tachycardic and regular. Normal peripheral pulses. ABDOMEN: Soft, nontender, nondistended. rectal exam with induration in the perineum and around the rectum with exception superior aspect. No fluctuant abscess palpated. EXTREMITIES: Normal range of motion. No edema. SKIN: Warm, dry, no rash. NEURO: Alert and oriented x3. PSYCH: Normal mood and affect. Course Course Emergency Course: Patient informed of results. Discussed with General surgery. Admit to their service. IV antibiotics ordered. Patient NPO since last night. Vital Signs Vital signs: Vital Signs Temperature 97.8 F 12/29/23 07:32 Pulse Rate 110 H 12/29/23 07:32 Respiratory Rate 16 12/29/23 07:32 Blood Pressure 145/100 H 12/29/23 07:32 Pulse Oximet
[2023-12-29] MEDS: SODIUM CHLORIDE 0.9% IV 1,000 ML 999 ML IV CONT (08:30)
[2023-12-29] MEDS: MORPHINE SULFATE (*CRX) 4 MG/ML INJ IV PUSH (08:30)
[2023-12-29 08:37] LABS: Basophils Absolute Auto 0.1 K/mm3 (0.0-0.1); Basophils Percent Auto 0.4 % (0.2-1.2); Eosinophils Percent Auto 0.1 % (0-4.4); Hemoglobin 13.1 g/dL (12.0-15.0); Immature Granulocyte Absolute 0.08 K/mm3 (0.00-0.031); Immature Granulocyte Percent A 0.5 % (0-0.5); Lymphocytes Percent Auto 5.1 % (18.3-44.2); Mean Corpuscular HGB Conc 34.5 g/dl (32-36); Mean Corpuscular Hemoglobin 34.2 pg (26-34); Mean Corpuscular Volume 99.2 fl (80-100); Mean Platelet Volume 9.9 fl (7.4-10.4); Monocytes Absolute Auto 1.6 K/mm3 (0.1-0.6); Neutrophils Absolute Auto 13.3 K/mm3 (1.3-6.7); Neutrophils Percent Auto 83.9 % (45.5-73.1); Platelet Count Result 228 k/mm3 (150-375); Red Blood Count 3.83 M/mm3 (4.2-5.4); Red Cell Distribution Width 12.5 % (11.5-14.5); White Blood Count 15.8 K/mm3 (4.5-10.0)
[2023-12-29 08:55] LABS: Lactic Acid Reflex 1.1 mmol/L (0.7-2.0)
[2023-12-29 08:56] LABS: Alanine Aminotransferase 18 U/L (6-35); Albumin Level 3.7 g/dL (3.5-5.1); Alkaline Phosphatase 95 U/L (38-126); Anion Gap 10 mmol/L (4-12); Aspartate Amino Transferase 21 U/L (14-36); Bilirubin,Total 0.6 mg/dL (0.2-1.3); Blood Urea Nitrogen 12 mg/dL (7-17); Calcium 8.2 mg/dL (8.4-10.2); Carbon Dioxide 26 mmol/L (22-30); Chloride 98 mmol/L (98-107); Estimated CRCL calculation 113 ml/min; Estimated Glomerular Filt Rate > 60; Glucose 130 mg/dL (65-110); Potassium 3.3 mmol/L (3.4-5.0); Sodium 134 mmol/L (137-145)
[2023-12-29] MEDS: PIPERACILLN/TAZ 3.375GM/NS50ML 3.375 GM/50 ML BAG IVPB ×2 (10:15→16:11)
[2023-12-29] MEDS: HYDROmorphone HCL INJ (*CRX) 1 MG/ML SYR IV PUSH (10:15)
--- NOTE | 2023-12-29 11:05 | PM.IMHP ---
H&P: HPI History of Present Illness Date/Time: 12/29/23 11:05 Chief Complaint: perirectal abscess Narrative: The patient is a 43-year-old female presenting to the emergency department complaining of severe perirectal pain. Patient reports pain has been progressively worsening over last week. She reports significant swelling in the peace anal region. The patient reports that its been very difficult to sit and she feels a constant pressure in the area. The patient denies any drainage. The patient does report subjective fevers and chills at home as well as decreased appetite. The patient denies any previous episodes or trauma to the area. Review of Systems Review of Systems: All systems reviewed & are unremarkable except as noted in HPI and below PMFSH Past Medical History Medical History Alcohol abuse Depression cardiomyopathy Preeclampsia Surgical History Surgical History History of section Family History Family History Father Diabetes mellitus Mother Chronic obstructive pulmonary disease Heart disease Grandparent Lung cancer Social History Social History Social History: Surrogate medical decision maker: Shannondeb Lopez, friend. Code status: Full code. Smoking status: Never smoker Alcohol intake: current Drinks per week: 10 Substance use: current Substance use type: marijuana Lack of Transportation: No Lack of Food: Never True Current Housing: I Have Housing Concerned About Future Housing: No Difficulty Paying Gas/Electric Bills: No Difficulty Paying for Meds: No Currently Unemployed: No Education: High School Diploma/GED Difficulty w/ Childcare or Family Care: No Additional living arrangements comments: Lives in [place]. Has a 14-year-old son. Additional occupation/education comments: Works at [employer]. Spiritual care concerns: No Meds Home Medications and Allergies Home Medications Medication Instructions Recorded Confirmed Type cephalexin 500 mg capsule 500 mg PO Q6H 7 days #28 caps 11/18/23 Rx escitalopram oxalate 5 mg tablet mg 11/18/23 History phentermine 15 mg capsule mg 11/18/23 History trazodone 50 mg tablet mg 11/18/23 History chlordiazepoxide HCl 25 mg capsule 25 mg PO ONCE #25 caps 12/21/23 Rx ondansetron 4 mg disintegrating 4 mg PO Q8H PRN nausea and 12/21/23 Rx tablet vomiting #10 tabs Allergies Allergy/AdvReac Type Severity Reaction Status Date / Time No Known Allergies Allergy Verified 11/18/23 12:20 Vital Signs Vital Signs - 24 hr 12/29/23 07:32 12/29/23 08:56 12/29/23 09:26 Temperature 36.6 C Pulse Rate 110 H 104 H 109 H Respiratory Rate 16 14 14 Blood Pressure 145/100 H 141/73 H 144/101 H Pulse Oximetry 100 100 96 Oxygen Delivery Room Air 12/29/23 10:58 Temperature Pulse Rate 92 Respiratory Rate 14 Blood Pressure 145/94 H Pulse Oximetry 96 Oxygen Delivery Exam Const: General: cooperative, no acute distress, tired appearing and uncomfortable HENMT: Head: normal to inspection, normocephalic and atraumatic Eyes: General: appearance normal, both eyes and all related structures Neck: Neck: normal visual inspection, full ROM and no lymphadenopathy Resp: Auscultation: clear to auscultation bilaterally Cardio: Rate: tachycardic Rhythm: regular rhythm GI: Inspection: normal to inspection and non-distended GI Palp: No abdominal tenderness, Yes Soft to palpation, No Tenderness to palpation present (GI) and No Guarding due to palpation present (GI) Rectal Exam: abscess Other: inferior perirectal abscess - tender, fluctuant, indurated, no drainage Skin: General skin exam: normal color and no rashes or lesions noted Neuro: General: patient oriented x3 and
[2023-12-29] MEDS: ONDANSETRON INJ 4 MG/2 ML VIAL IV PUSH ×2 (12:18→16:09)
[2023-12-29] MEDS: SODIUM CHLORIDE 0.9% IV 1,000 ML 125 ML IV CONT ×2 (12:25→22:22)
[2023-12-29] MEDS: LORazepam INJ (*CRX) 2 MG/ML VIAL 1 MG IV PUSH ×2 (16:12→22:22)
[2023-12-29] MEDS: KETOROLAC 30 MG/ML VIAL (*BKC) IV PUSH ×2 (16:14→22:22)
[2023-12-30] VITALS (13 sets, daily range): BP systolic 112–140; BP diastolic 76–101; PULSE 78–92; RESP 15–25; TEMP 36.4–36.8; O2SAT 95–100
[2023-12-30] MEDS: PIPERACILLN/TAZ 3.375GM/NS50ML 3.375 GM/50 ML BAG IVPB ×4 (00:57→17:21)
[2023-12-30] MEDS: KETOROLAC 30 MG/ML VIAL (*BKC) IV PUSH ×4 (02:19→21:43)
[2023-12-30] MEDS: SODIUM CHLORIDE 0.9% IV 1,000 ML 125 ML IV CONT ×2 (05:49→18:15)
[2023-12-30] MEDS: LACTATED RINGERS 1,000 ML 30 ML IV CONT (07:20)
--- NOTE | 2023-12-30 07:31 | WPDHPUPDATE1 ---
History and Physical Update Update Date/Time: 12/30/23 07:31 History and Physical has been reviewed, including an updated exam of the patient. There are NO changes in the patient's condition. Risks, benefits, and alternatives have been discussed and questions answered. Patient agrees to proceed with procedure.
[2023-12-30] MEDS: BUPIVACAINE/EPINEPHRINE 0.5% 10 ML VIAL 30 ML INFILTRATE (08:01)
--- NOTE | 2023-12-30 08:38 | W.PM.PROC2 ---
Procedure Note - Detailed Date of Procedure 12/30/23 Pre-op Diagnosis Perianal abscess Post-op Diagnosis Same Procedure Performed exam under anesthesia, complex incision and drainage perianal abscess measuring 7 x 5 cm Surgeon Awilda Ramires MD Anesthesia General and Local Indications 43-year-old female presenting to the emergency with severe perianal pain. Workup, including imaging, significant for large perianal abscess Findings large perianal abscess with significant amount of pus Description of Procedure The patient was taken the operating room and placed in the modified lithotomy position. After induction of general anesthesia, the patient was prepped and draped in the normal sterile fashion. A time-out was then done to the patient's identity, as well as the procedure being performed. I began by doing a rectal exam under anesthesia. There was noted to be a fluctuant mass in the superior perianal region but no obvious fistula was encountered. I then localized the area in and around this large abscess cavity in the superior perianal region, perineum. Once adequately anesthetized, I made a incision using a 15 blade scalpel over the most fluctuant area of the abscess. A large amount purulent drainage was immediately expressed. Sterile cultures were taken at this point. I then used a hemostat to bluntly dissect around this cavity. Further loculations were broken up and more drainage was obtained. Once the entire cavity was explored it measured 7 x 5 cm. I then copiously washed out the cavity. Further local anaesthesia was placed. I then packed the cavity with approximately 10 ft quarter-inch iodoform packing to keep the area open and draining. Sterile dressing was then placed. The patient tolerated the procedure well and was extubated postoperatively. She will be transferred to the recovery room in stable condition. Implants 10 ft quarter-inch iodoform packing Estimated Blood Loss 5 Drains No Packing Yes Pathology Yes Complications No immediate complications Condition Stable Disposition PACU [facility] Billing Surgery - Charge Forward: Surgery Billing
[2023-12-30] MEDS: HYDROmorphone HCL INJ (*CRX) 1 MG/ML SYR 0.5 MG IV PUSH (09:20)
[2023-12-30] MEDS: ESCITALOPRAM OXALATE 10 MG TABLET PO (10:13)
[2023-12-30] MEDS: LORazepam INJ (*CRX) 2 MG/ML VIAL 1 MG IV PUSH (21:43)
[2023-12-31] MEDS: PIPERACILLN/TAZ 3.375GM/NS50ML 3.375 GM/50 ML BAG IVPB ×2 (00:50→05:36)
[2023-12-31] MEDS: SODIUM CHLORIDE 0.9% IV 1,000 ML 125 ML IV CONT (02:03)
[2023-12-31] MEDS: KETOROLAC 30 MG/ML VIAL (*BKC) IV PUSH (02:35)
[2023-12-31 06:32] VITALS: BP 116/89; PULSE 74; RESP 20; TEMP 36.4; O2SAT 99
[2023-12-31 09:43] LABS: Hematocrit 34.7 % (37.0-47.0); Mean Corpuscular HGB Conc 34.6 g/dl (32-36); Mean Corpuscular Hemoglobin 34.5 pg (26-34); Mean Corpuscular Volume 99.7 fl (80-100); Platelet Count Result 287 k/mm3 (150-375); Red Blood Count 3.48 M/mm3 (4.2-5.4); Red Cell Distribution Width 12.8 % (11.5-14.5); White Blood Count 13.7 K/mm3 (4.5-10.0)
--- NOTE | 2023-12-31 09:53 | PM.DS ---
DS: Admitting Diagnosis Discharge Date 12/31/2023 Admitting Diagnosis Perianal abscess DS: Discharge Diagnosis Discharge Diagnosis (1) Abscess, perianal: Code(s): K61.0 - Anal abscess Status: Acute DS: Summary Hospital Course Reason for hospitalization: This is a 43-year-old female who presented to the ED with perirectal pain. Workup showed CT evidence of a perianal abscess containing stool. She was admitted in this setting. Hospital Course: She was started on broad-spectrum IV antibiotics. She was taken to the OR on 12/30/[address] Ramires for an exam under anesthesia, complex incision and drainage perianal abscess measuring 7 x 5 cm. The area was packed and she was continued on IV antibiotics postoperatively. Cultures were taken during surgery and are pending on discharge. Her diet was advanced and she is tolerating this well today. The packing was removed this morning by Dr. Ramires, who recommended she be discharged on oral antibiotics with follow-up as an outpatient. Perianal pain much better today following I&D. She is complaining of diarrhea this morning as well that started after being in the ER. She has had 3 liquid stools this morning. Denies any blood or pus in her stool. She is afebrile and labs showed a white blood cell count coming down to 13,000 today. Repeat labs ordered today. Will order stool studies today prior to discharge. She is stable for discharge today on oral antibiotics. Also, patient was recently prescribed Librium for alcohol withdrawal last month. She denies currently taking this and is not currently having any withdraw symptoms. Recommend no alcohol use. Status at Discharge Functional status at discharge: independent ambulation Overall status at discharge: patient is progressing back to baseline Time Spent with Patient Time attestation: Total time spent providing and/or coordinating discharge services: Time spent: Less than 30 minutes Exam Const: General: comfortable and no acute distress GI: Other: Perianal abscess with incision anteriorly towards perineum, no purulent drainage noted, no significant induration or erythema, mild tenderness left of the incision but reportedly much improved DS: Data Data Completed and Pending Labs on day of discharge: Labs from last 24 hours 12/31/23 09:39 WBC 13.7 H RBC 3.48 L Hgb 12.0 Hct 34.7 L MCV 99.7 MCH 34.5 H MCHC 34.6 RDW 12.8 Plt Count 287 MPV 10.0 Procedures/Treatments: Procedures Operation Date: 12/30/23 07:30 Actual Procedure Side Surgeon p Complex I&D Marii-Rectal Abscess Awilda Ramires MD Imaging Radiologist's impression: ITS Impressions Abdomen/Pelvis CT 12/29/23 09:18 IMPRESSION: 1. Perianal abscess containing stool. Discharge Plan Discharge Attending physician on discharge: Awilda Ramires Discharging Clinician: Pretty Carvajal Anticipated Discharge Date/Time: 12/31/23 10:03 Patient Disposition: Home, Self-Care Activity: may shower Diet: as tolerated and regular Wound Care Instructions: change dressing daily Discharge Instructions: Take Sitz baths 2-3 times per day and after each bowel movement for the next few days. Apply gauze dressing or wear a pad to be changed when saturated and at least daily Follow-up with Dr. Ramires in 2 weeks. Call the office to schedule an appointment ([phone]) chemical supervisor your antibiotics and complete all that was prescribed You may take Tylenol 500 mg every 6 hours as needed and ibuprofen 400 mg every 6 hours as needed for pain. We will also send hydrocodone/acetaminophen (which is a narcotic pain pill) that should only be taken for moderate to severe pain as needed. This medication can also cause constipation. Would recommend taking a probiotic with antibiotics. Will call you if any stool cultures are abnormal. Call our office if you have persistent diarrhea or are unable to take the antibiotics. Call the jones
[2023-12-31 10:35] LABS: Anion Gap 8 mmol/L (4-12); Blood Urea Nitrogen 8 mg/dL (7-17); Calcium 8.6 mg/dL (8.4-10.2); Carbon Dioxide 26 mmol/L (22-30); Chloride 104 mmol/L (98-107); Estimated CRCL calculation 96 ml/min; Estimated Glomerular Filt Rate > 60; Glucose 113 mg/dL (65-110); Potassium 3.3 mmol/L (3.4-5.0); Sodium 138 mmol/L (137-145)
[2023-12-31 11:32] LABS: Toxigenic C. Diff NEGATIVE (NEGATIVE)
--- NOTE | 2024-01-01 13:05 | WPDANESEPPF ---
Anes - Initial Pre Proc Eval Procedure: Operation Date: 12/30/23 07:30 Proposed Procedures p I&D Marii-Rectal Abscess - Awilda Ramires MD Date/Time: 01/01/24 13:05 Surgeon: Awilda Ramires MD Pre Op Diagnosis: perineal abscess Patient Data Age: 43 Gender: F Height: 1.55 m Weight: 75 kg Last Vital Signs Temp 36.4 C L 12/31/23 06:32 Pulse 74 12/31/23 06:32 Resp 20 12/31/23 06:32 BP 116/89 12/31/23 06:32 Pulse Ox 99 12/31/23 06:32 O2 Del Method Room Air 12/31/23 10:00 O2 Flow Rate 10 12/30/23 08:30 Allergies Allergy/AdvReac Type Severity Reaction Status Date / Time No Known Allergies Allergy Verified 11/18/23 12:20 Home Medications Medication Instructions Recorded Confirmed Type escitalopram oxalate 5 mg tablet 10 mg PO DAILY 11/18/23 12/29/23 History trazodone 50 mg tablet 50 mg PO HS PRN Insomnia 11/18/23 12/29/23 History amoxicillin 875 mg-potassium 1 tablet PO Q12H #14 tabs 12/31/23 Rx clavulanate 125 mg tablet hydrocodone 5 mg-acetaminophen 325 1 tablet PO Q6H PRN Pain Rated 4-6 12/31/23 Rx mg tablet #6 tabs Other studies: Late entry Patient hx anesthesia problems: none Family hx anesthesia problems: none Results Review: All pre-operative results and documents have been reviewed as part of the pre-operative evaluation. [facility] Past Medical History Medical History Alcohol abuse Depression cardiomyopathy Preeclampsia Surgical History Surgical History History of section Family History Family History Father Diabetes mellitus Mother Chronic obstructive pulmonary disease Heart disease Grandparent Lung cancer Social History Social History Social History: Surrogate medical decision maker: Shannon Lopez, friend. Code status: Full code. Smoking status: Never smoker Alcohol intake: current Drinks per week: 3 Substance use: never Substance use type: marijuana Do You Feel Safe in your Home?: Yes Lack of Transportation: YES Lack of Food: Never True Current Housing: I Have Housing Concerned About Future Housing: No Difficulty Paying Gas/Electric Bills: No Difficulty Paying for Meds: No Currently Unemployed: No Education: High School Diploma/GED Difficulty w/ Childcare or Family Care: No Additional living arrangements comments: Lives in [place]. Has a 14-year-old son. Additional occupation/education comments: Works at [employer]. Spiritual care concerns: No Anes - Eval Final PreProcedure Day of Procedure 01/01/24 13:05 Patient weight: overweight Heart: regular rate and rhythm Lungs: clear to auscultation Airway: Mallampati scale class II Neurological: alert and oriented Last oral intake: >/= 8 hours ASA classification: III Emergent: no Anesthetic plan: proceed Anesthesia type and monitoring: general LMA and standard monitoring Results Review: All pre-operative results and documents have been reviewed as part of the pre-operative evaluation. Informed Consent: The patient's anesthetic plan and its attendant risks and benefits were discussed with the patient/family/POA. Questions were solicited and answers provided to the satisfaction of the patient/family/POA.
== END 2023-12-31 11:20 | disposition home or self-care (01) ==
LOC: ANHED 08:58 → ANH3MED 11:18
PROVIDERS: Nurse Practitioner Family; Admitting Provider Surgery; Emergency Provider Emergency Medicine; PCP Family Medicine; Visit Provider Surgery
PROC: (CPT 46040; principal; 2023-12-30 07:30)
DX: K61.0 Anal abscess (principal); F32.A Depression, unspecified; F10.10 Alcohol abuse, uncomplicated
CPT/HCPCS: 46050; 36415; 74177; 80048; 80053; 83605; 85025; 85027; 87045; 87070; 87075; 87205; 87427; 87449; 87493; 96361; 96365; 96375; 96376; 99285; A9270; G0378; J1100; J1170; J1885; J2060; J2250; J2270; J2405; J2543; J2704; J3010; J7030; J7120; Q9967

== ENCOUNTER 2024-04-13 10:13 | Emergency (ER) | payer OTHER, SELFPAY ==
[2024-04-13 10:22] VITALS: BP 158/121; PULSE 96; RESP 18; TEMP 36.6; O2SAT 99
--- NOTE | 2024-04-13 10:30 | ED.EYEPROB ---
HPI - Eye Problem General Chief complaint: Eye Problems Stated complaint: RT Eye infection Time Seen by Provider: 04/13/24 10:25 Source: patient Mode of arrival: ambulatory Limitations: no limitations History of Present Illness HPI Narrative: Shruthi is a 43-year-old female patient presenting to the clinic today with complaints of right eye lower lid pain. She reports that this is had a bump and has had pain for the past 3 days. She noticed some white discharge coming from the eye today after she applied warm compress. Area is still painful. She did call off work and they wanted her to come in to be evaluated and get a work note. Related Data Allergies Allergy/AdvReac Type Severity Reaction Status Date / Time No Known Allergies Allergy Verified 04/13/24 10:20 Review of Systems Review of Systems: Pertinent positives per HPI. Patient denies any fever, chills, rash, headache, visual changes, dizziness, cough, shortness of breath, chest pain, palpitations, nausea, vomiting, diarrhea, constipation, abdominal pain, or any urinary issues. [facility] Past Medical History Medical History Alcohol abuse Depression cardiomyopathy Preeclampsia Surgical History Surgical History History of section History of incision and drainage I&D of perianal abscess on 12/30/23. KM Family History Family History Father Diabetes mellitus Mother Chronic obstructive pulmonary disease Heart disease Grandparent Lung cancer Social History Social History Social History: Surrogate medical decision maker: Shannon Lopez, friend. Code status: Full code. Smoking status: Never smoker Alcohol intake: current Drinks per week: 3 Substance use: never Substance use type: marijuana Do You Feel Safe in your Home?: Yes Lack of Transportation: YES Lack of Food: Never True Current Housing: I Have Housing Concerned About Future Housing: No Difficulty Paying Gas/Electric Bills: No Difficulty Paying for Meds: No Currently Unemployed: No Education: High School Diploma/GED Difficulty w/ Childcare or Family Care: No Additional living arrangements comments: Lives in [place]. Has a 14-year-old son. Additional occupation/education comments: Works at [employer]. Spiritual care concerns: No Comments At the time of my signature, I reviewed and agree with the nursing past medical, surgical, social, and family history. There is no relevant family history pertinent to the patient complaint. Exam Narrative: General: Well-developed, well nourished, in no apparent distress Head: Normocephalic, atraumatic Eyes: Pupils equally round and reactive to light bilaterally, EOM intact, sclera and conjunctive clear, draining pustule to the right inner lower eyelid, mild bruising noted to the outside of the right lower eye, no discharge, lids normal Ears: TMs intact and clear, ear canals clear, no drainage, grossly hearing normal. Nose: Nares patent, no discharge, no inflammation, no sinus tenderness. Mouth: Oral pharynx without lesions or masses, good dentition, MMM. Neck: Supple, trachea midline, no enlargement of anterior or posterior cervical nodes, no thyroid masses or goiter palpable. Cardio: Regular rate and rhythm, s1 and s2 normal, no murmur appreciated. Resp: Clear to auscultation bilaterally, no rhonchi, rales, wheezing or rubs Course Course Emergency Course: Portions of this record may have been created with voice recognition software. Level of Care: Express Care Visit Vital Signs Vital signs: Vital Signs Temperature 36.6 C 04/13/24 10:22 Pulse Rate 96 04/13/24 10:22 Respiratory Rate 18 04/13/24 10:22 Blood Pressure 158/121 H 04/13/24 10:22 Pulse
== END 2024-04-13 10:36 | disposition home or self-care (01) ==
PROVIDERS: Emergency Provider Nurse Practitioner Family; PCP Family Medicine
DX: H00.022 Hordeolum internum right lower eyelid (principal)
CPT/HCPCS: 99213; G0463

== ENCOUNTER 2024-06-10 02:44 | Day surgery (SDC) | payer OTHER, SELFPAY ==
[2024-06-05 14:15] VITALS: BMI 31.8
--- NOTE | 2024-06-05 14:22 | PC.NURSE ---
Report to the Outpatient Waiting Room, entrance under the green pavilion located off [facility], at time _0800_ on date _[id number]_. Planned Procedure Time: _1000_.? Time changes happen often and if your time is changed the preop area will call you the afternoon before. - You and your visitor will be asked to self-screen and do not enter if you have any COVID symptoms. Please call surgeon if you need to reschedule. - A mask is optional within the hospital at this time. - No food or drink from midnight until time of surgery and no smoking. This includes no chewing gum, candy or mints. Take only the following medications with a SIP of water on the morning of surgery: ____Antibiotic DO NOT STOP ANY OF YOUR OTHER PRESCRIPTION MEDICATIONS PRIOR TO SURGERY EXCEPT THE FOLLOWING Medications to discontinue per physician __None Please no make-up, nail mohawk, hairspray, perfume, deodorant, or body powder the day of surgery.? No jewelry (including any body piercings) or valuables the day of surgery, leave them at home.? Please take a shower or bath the night before, or the morning of, surgery with an antibacterial soap.? Wear comfortable, loose fitting clothing.? . - Jewelry must be removed prior to entering the operating room.? Rings and piercings that are not removed may be cut off. - The hospital will not accept responsibility for valuables.? - Please leave all valuables, including medications, at home the day of surgery. If you are going home after surgery, a licensed vibratory pile driver must drive you home.? - NO public transportation without another adult if you receive anesthesia. - We recommend that an adult stay with you for 24 hours following discharge. - We also recommend that you do not drive, make important decision, drink alcoholic beverages, or take any drugs that were not prescribed by your health care provider for at least 24 hours after your discharge time. Follow any additional instructions given to you from your surgeon. Telephone instructions given to _Renee__and asked if any additional questions and then verbalized understanding. Patient advised to call surgeon office or pre surgery nurse liaison [phone] if any additional questions.
[2024-06-10] VITALS (7 sets, daily range): BP systolic 131–148; BP diastolic 80–108; PULSE 63–97; RESP 16–18; TEMP 36.7; O2SAT 98–100
--- NOTE | 2024-06-10 08:31 | WPDANESEPPF ---
Anes - Initial Pre Proc Eval Procedure: Operation Date: 06/10/24 10:00 Proposed Procedures p Examination Under Anesthesia Anal Fistulotomy - Awilda Ramires MD Date/Time: 06/10/24 08:31 Surgeon: Awilda Ramires MD Pre Op Diagnosis: Fistula In Ano Patient Data Age: 43 Gender: F Height: 1.55 m Weight: 76.4 kg Allergies Allergy/AdvReac Type Severity Reaction Status Date / Time No Known Allergies Allergy Verified 06/05/24 14:12 Home Medications ?Medication ?Instructions ?Recorded ?Confirmed ?Type amoxicillin 875 mg-potassium 1 tablet PO BID 10 days #20 tabs 06/03/24 06/05/24 Rx clavulanate 125 mg tablet naltrexone microspheres 380 mg 380 mg IM MONTHLY 06/05/24 06/05/24 History intramuscular suspension,extended release (Vivitrol) phentermine 37.5 mg capsule 37.5 mg PO DAILY 06/05/24 06/05/24 History trazodone 50 mg tablet 50 mg PO HS 06/05/24 06/05/24 History Patient hx anesthesia problems: none Family hx anesthesia problems: none Results Review: All pre-operative results and documents have been reviewed as part of the pre-operative evaluation. [facility] Past Medical History Medical History Preeclampsia cardiomyopathy Alcohol abuse Depression Surgical History Surgical History History of incision and drainage I&D of perianal abscess on 12/30/23. KM History of section Family History Family History Father Diabetes mellitus Mother Chronic obstructive pulmonary disease Heart disease Grandparent Lung cancer Social History Social History Social History: Surrogate medical decision maker: Shannon Lopez, friend. Code status: Full code. Smoking status: Never smoker Alcohol intake: former Drinks per week: 3 Alcohol use details: Taking Vivitrol injections monthly to stop her drinking. Substance use: never Substance use type: marijuana Other substance usage details: Daily Do You Feel Safe in your Home?: Yes Lack of Transportation: YES Lack of Food: Never True Current Housing: I Have Housing Concerned About Future Housing: No Difficulty Paying Gas/Electric Bills: No Difficulty Paying for Meds: No Currently Unemployed: No Education: High School Diploma/GED Difficulty w/ Childcare or Family Care: No Living arrangements: with family Additional living arrangements comments: Lives in [place]. Has a 14-year-old son. Additional occupation/education comments: Works at [employer]. Spiritual care concerns: No Anes - Eval Final PreProcedure Day of Procedure 06/10/24 08:31 Patient weight: obese Heart: regular rate and rhythm Lungs: clear to auscultation Airway: Mallampati scale class II Neurological: alert and oriented Last oral intake: >/= 8 hours ASA classification: III Emergent: no Anesthetic plan: proceed Anesthesia type and monitoring: general LMA and standard monitoring Results Review: All pre-operative results and documents have been reviewed as part of the pre-operative evaluation. Informed Consent: The patient's anesthetic plan and its attendant risks and benefits were discussed with the patient/family/POA. Questions were solicited and answers provided to the satisfaction of the patient/family/POA.
[2024-06-10] MEDS: LACTATED RINGERS 1,000 ML 30 ML IV CONT (08:45)
--- NOTE | 2024-06-10 09:09 | WPDHPUPDATE1 ---
History and Physical Update Update Date/Time: 06/10/24 09:09 History and Physical has been reviewed, including an updated exam of the patient. There are NO changes in the patient's condition. Risks, benefits, and alternatives have been discussed and questions answered. Patient agrees to proceed with procedure.
[2024-06-10] MEDS: ACETAMINOPHEN 500 MG TABLET 1000 MG PO (09:27)
[2024-06-10] MEDS: KETOROLAC 15 MG/ML VIAL (*BKC) IV PUSH (09:27)
[2024-06-10 09:37] LABS: BEDSIDEPREGUCG Negative (Negative)
[2024-06-10] MEDS: ceFAZolin 2 GM/D5W 50 ML 2 GM/50 ML BAG IVPB (10:05)
[2024-06-10] MEDS: BUPIVACAINE/EPINEPHRINE 0.5% 30 ML VIAL INFILTRATE (10:29)
--- NOTE | 2024-06-10 10:57 | W.PM.PROC2 ---
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 After adequate induction of general anesthesia, the patient was prepped and draped in the normal sterile fashion. A time-out was then done to verify the patient's identity, as well as the procedure being performed. I began by performing a rectal exam, 1st digitally and then with the anoscope. No obvious rectal or anal pathology was noted. I then did a perirectal block with local anesthetic, including the area around the fistula tract. I then began to probe the opening at the 9 o'clock position from the anal canal. Using the probe I was able to identify the fistula tract going into the anal canal. The tract was noted to be quite shallow and decision was made to do a fistulotomy. Once the probe was in place, I opened the fistula tract using a scalpel. The tract was then completely opened and the probe was removed. I then gained hemostasis with the Bovie cautery. The tract was further locally anesthetized. Sterile dressing was then placed. The patient tolerated the procedure well and was extubated postoperatively. She will be sent to the recovery room in stable condition. Estimated Blood Loss 10 Pathology None sent Complications No immediate complications Condition Stable Disposition PACU [facility] Billing Surgery - Charge Forward: Surgery Billing
[2024-06-10] MEDS: oxyCODONE HCL (*CRX) 5 MG TAB IR PO (11:40)
== END 2024-06-10 12:09 | disposition home or self-care (01) ==
PROVIDERS: Anesthesiology; PCP Family Medicine; Visit Provider Surgery
PROC: (CPT 46275; principal; 2024-06-10 10:00)
DX: K60.30 Anal fistula, unspecified (principal); F12.90 Cannabis use, unspecified, uncomplicated; E66.9 Obesity, unspecified; Z68.29 Body mass index [BMI] 29.0-29.9, adult
CPT/HCPCS: 46275; A9270; J0690; J1100; J1885; J2003; J2250; J2405; J2704; J7120

== ENCOUNTER 2024-06-16 09:06 | Emergency (ER) | payer OTHER, SELFPAY ==
[2024-06-16 09:13] VITALS: BP 142/101; PULSE 109; RESP 18; TEMP 36.8; O2SAT 100
--- NOTE | 2024-06-16 09:21 | ED.RECABL ---
HPI - Recheck/Abnormal Lab/Rx General Chief Complaint: Recheck/Abnormal Lab/Rx Stated Complaint: bleeding at surgical site Time Seen by Provider: 06/16/24 09:08 History of Present Illness HPI narrative: Patient is a 43-year-old female who presents to the ER with concerns of bleeding after perianal cyst repair. She reports she had the procedure done the [address] Wilkins. Patient reports they left the area open as far as she knows. She has had much bleeding or oozing from the site today she reports she filled up 10 gauze pain. Patient reports she has moving around a since her procedure and today was her 1st day back at work. She rates her pain at 2/10. Patient reports I feel like I'm hemorrhaging. She denies any purulence drainage, malodorous drainage, fevers, increased pain, reddened skin surrounding the area. Patient endorses a history of high blood pressure. She reports she recently stopped her menstrual period. Related Data Home Medications ?Medication ?Instructions ?Recorded ?Confirmed ?Last Taken ?Type naltrexone microspheres 380 mg 380 mg IM MONTHLY 06/05/24 06/05/24 05/26/24 History intramuscular suspension,extended release (Vivitrol) phentermine 37.5 mg capsule 37.5 mg PO DAILY 06/05/24 06/05/24 Unknown History trazodone 50 mg tablet 50 mg PO HS 06/05/24 06/10/24 06/09/24 21:00 History Allergies Allergy/AdvReac Type Severity Reaction Status Date / Time No Known Allergies Allergy Verified 06/16/24 09:20 Review of Systems Review of Systems: All systems reviewed & are unremarkable except as noted in HPI and below PMFSH Past Medical History Medical History Preeclampsia cardiomyopathy Alcohol abuse Depression Surgical History Surgical History History of incision and drainage I&D of perianal abscess on 12/30/23. KM History of section Family History Family History Father Diabetes mellitus Mother Chronic obstructive pulmonary disease Heart disease Grandparent Lung cancer Social History Social History Social History: Surrogate medical decision maker: Shannon Lopez, friend. Code status: Full code. Smoking status: Never smoker Alcohol intake: former Drinks per week: 3 Alcohol use details: Taking Vivitrol injections monthly to stop her drinking. Substance use: never Substance use type: marijuana Other substance usage details: Daily Do You Feel Safe in your Home?: Yes Lack of Transportation: YES Lack of Food: Never True Current Housing: I Have Housing Concerned About Future Housing: No Difficulty Paying Gas/Electric Bills: No Difficulty Paying for Meds: No Currently Unemployed: No Education: High School Diploma/GED Difficulty w/ Childcare or Family Care: No Living arrangements: with family Additional living arrangements comments: Lives in [place]. Has a 14-year-old son. Additional occupation/education comments: Works at [employer] Spiritual care concerns: No Exam Narrative: GENERAL: Well appearing, well-nourished, non-toxic, in no acute distress. HEAD: Normocephalic, atraumatic. NECK: Supple. No adenopathy, no masses. RESPIRATORY: Airway patent, respirations nonlabored. Clear to auscultation bilaterally, no rales, rhonchi, wheezing. CARDIOVASCULAR: Regular rate and rhythm without murmurs, rubs, or gallops. Peripheral pulses 2+ and equal bilaterally. ABDOMINAL: Soft, nontender, nondistended, no hepatosplenomegaly. Normoactive BS. MUSCULOSKELETAL: Moves all extremities. Strength/ROM intact without gross deformities. SKIN: Warm, dry, normal color. Pt has a visible open wound her right buttock that is oozing a minimal amount of sanguinous at this time. The edges of her wound are well-approximated. Bleeding is well-controlled. Surrounding skin is appropriate color, with no notable rashes, areas of warmth, or swelling. NEURO: A&O X3. Speech clear. Cranial nerves II-XII grossly intact. Steady gait. No ataxic movements. PSYCHIATRIC: Appropriate mood and affect. Normal interaction. Course Vital Signs Vital signs: Vital Signs Temperature 36.8 C 06/16/24 09:13 Pulse Rate 109 H 06/16/24 09:13 Respiratory Rate 18 06/16/24 09:13 Blood Pressure 142/101 H 06/16/24 09:13 Pulse Oximetry 100 06/16/24 09:13 Oxygen Delivery Room Air 06/16/24 09:13 Temperature 36.8 C 06/16/24 09:13 Pulse Rate 109 H 06/16/24 09:13 Respiratory Rate 18 06/16/24 09:13 Blood Pressure 142/101 H 06/16/24 09:13 Pulse Oximetry 100 06/16/24 09:13 Oxygen Delivery Room Air 06/16/24 09:13 MDM - Recheck/Abnormal Lab/Rx MDM Narrative Medical decision making narrative: Patient is a 43-year-old female who presents to the ER with concerns of bleeding after perianal cyst repair. She reports she had the procedure done the [address] Wilkins. Patient reports they left the area open as far as she knows. She has had much bleeding or oozing from the site today she reports she filled up 10 gauze pain. Patient reports she has moving around a since her procedure and today was her 1st day back at work. She rates her pain at 2/10. Patient reports I feel like I'm hemorrhaging. She denies any purulence drainage, malodorous drainage, fevers, increased pain, reddened skin surrounding the area. Patient endorses a history of high blood pressure. She reports she recently stopped her menstrual period. Labs Ordered: CBC, CMP, INR, APTT Imaging Ordered: None necessary Results: patient's blood work results were all unremarkable. Diagnosis: expected oozing from surgical site Consults: general surgery, 1020- Spoke with Dr. Real, performed patient's surgery. He advises the site be packed and covered with a pressure dressing. Patient Education/Shared MDM: Results shared with patient. Patient surgeon came down to the ER to evaluate the wound himself and spoke with patient. He has no concerns with patient's current condition. Will discharge patient home with instructions for wound care. Patient to follow-up with general surgery as needed. She verbalizes understanding and is in agreement with plan. All questions answered. Vital signs stable at time of discharge. Differential Diagnosis Differential diagnosis: Likely encounter for wound recheck Lab Data Attestation: I reviewed the patient's lab results. 06/16/24 09:48 06/16/24 09:48 Labs: Lab Results 06/16/24 Range/Units 09:48 WBC 9.4 (4.5-10.0) K/mm3 RBC 4.24 (4.2-5.4) M/mm3 Hgb 14.5 (12.0-15.0) g/dL Hct 41.5 (37.0-47.0) % MCV 97.9 (80-100) fl MCH 34.2 H (26-34) pg MCHC 34.9 (32-36) g/dl RDW 14.0 (11.5-14.5) % Plt Count 285 (150-375) k/mm3 MPV 9.8 (7.4-10.4) fl Immature Gran % (Auto) 0.3 (0-0.5) % Neut % (Auto) 63.6 (45.5-73.1) % Lymph % (Auto) 29.2 (18.3-44.2) % Walsh % (Auto) 4.8 (2.6-8.5) % Eos % (Auto) 1.6 (0-4.4) % Baso % (Auto) 0.5 (0.2-1.2) % Lymph # (Auto) 2.74 (0.9-3.2) K/mm3 Walsh # (Auto) 0.5 (0.1-0.6) K/mm3 Eos # (Auto) 0.2 (0-0.3) K/mm3 Baso # (Auto) 0.1 (0.0-0.1) K/mm3 Abs Immat Gran (auto) 0.03 (0.00-0.031) K/mm3 Absolute Neuts (auto) 6.0 (1.3-6.7) K/mm3 Absolute Nucleated RBC 0.000 (0.0-0.012) K/mm3 Nucleated RBC % 0.0 (0.0-0.2) % PT 11.9 (11.1-14.7) Seconds INR 0.9 APTT 24.2 (22.3-36.8) Seconds Sodium 134 L (137-145) mmol/L Potassium 4.5 (3.4-5.0) mmol/L Chloride 104 (98-107) mmol/L Carbon Dioxide 25 (22-30) mmol/L Anion Gap 5 (4-12) mmol/L BUN 9 (7-17) mg/dL Creatinine 0.60 L (0.7-1.0) mg/dL Estim Creat Clear Calc 95 ml/min Estimated GFR > 60 (59 - ) Glucose 97 (65-110) mg/dL Calcium 9.4 (8.4-10.2) mg/dL Total Bilirubin 0.5 (0.2-1.3) mg/dL AST 27 (14-36) U/L ALT 26 (6-35) U/L Alkaline Phosphatase 60 (38-126) U/L Total Protein 8.0 (6.3-8.2) g/dL Albumin 4.4 (3.5-5.1) g/dL Discharge Plan Discharge Clinical Impression: Oozing skin inflammation, Encounter for wound re-check Patient Disposition: Home, Self-Care Condition: Stable Instructions: Antibiotic Form, Acute Wounds (ED) Additional Instructions: Please return to the ER with an worsening symptoms. Follow-up with primary care provider or your surgeon in the next 2-3 days. Take all medications as prescribed. Patient Language: Moldovan Prescriptions: No Action phentermine 37.5 mg capsule 37.5 mg PO DAILY trazodone 50 mg tablet 50 mg PO HS Vivitrol 380 mg suspension,extended rel recon 380 mg IM MONTHLY tramadol 50 mg tablet 50 mg PO Q6H PRN (Reason: pain) Qty: 20 0RF Follow-up/Referrals: Ang,MD Eren [Primary Care Provider] - Time of Disposition: 11:14
[2024-06-16] MEDS: SODIUM CHLORIDE 0.9% IV 1,000 ML 999 ML IV CONT (09:48)
[2024-06-16 09:57] LABS: Basophils Absolute Auto 0.1 K/mm3 (0.0-0.1); Basophils Percent Auto 0.5 % (0.2-1.2); Eosinophils Absolute Auto 0.2 K/mm3 (0-0.3); Eosinophils Percent Auto 1.6 % (0-4.4); Hematocrit 41.5 % (37.0-47.0); Hemoglobin 14.5 g/dL (12.0-15.0); Immature Granulocyte Absolute 0.03 K/mm3 (0.00-0.031); Immature Granulocyte Percent A 0.3 % (0-0.5); Lymphocytes Absolute Auto 2.74 K/mm3 (0.9-3.2); Lymphocytes Percent Auto 29.2 % (18.3-44.2); Mean Corpuscular HGB Conc 34.9 g/dl (32-36); Mean Corpuscular Hemoglobin 34.2 pg (26-34); Mean Corpuscular Volume 97.9 fl (80-100); Mean Platelet Volume 9.8 fl (7.4-10.4); Monocytes Absolute Auto 0.5 K/mm3 (0.1-0.6); Monocytes Percent Auto 4.8 % (2.6-8.5); Neutrophils Percent Auto 63.6 % (45.5-73.1); Platelet Count Result 285 k/mm3 (150-375); Red Blood Count 4.24 M/mm3 (4.2-5.4); White Blood Count 9.4 K/mm3 (4.5-10.0)
[2024-06-16 10:16] LABS: INR 0.9; Prothrombin Time 11.9 Seconds (11.1-14.7)
[2024-06-16 10:17] LABS: Partial Thromboplastin Time 24.2 Seconds (22.3-36.8)
[2024-06-16 10:19] LABS: Alanine Aminotransferase 26 U/L (6-35); Albumin Level 4.4 g/dL (3.5-5.1); Alkaline Phosphatase 60 U/L (38-126); Anion Gap 5 mmol/L (4-12); Aspartate Amino Transferase 27 U/L (14-36); Bilirubin,Total 0.5 mg/dL (0.2-1.3); Blood Urea Nitrogen 9 mg/dL (7-17); Calcium 9.4 mg/dL (8.4-10.2); Carbon Dioxide 25 mmol/L (22-30); Chloride 104 mmol/L (98-107); Estimated CRCL calculation 95 ml/min; Estimated Glomerular Filt Rate > 60; Glucose 97 mg/dL (65-110); Potassium 4.5 mmol/L (3.4-5.0); Sodium 134 mmol/L (137-145)
== END 2024-06-16 11:36 | disposition home or self-care (01) ==
PROVIDERS: Emergency Provider Registered Nurse; PCP Family Medicine
DX: L76.22 Postprocedural hemorrhage of skin and subcutaneous tissue following other procedure (principal); K62.5 Hemorrhage of anus and rectum; F12.90 Cannabis use, unspecified, uncomplicated; Y83.8 Other surgical procedures as the cause of abnormal reaction of the patient, or of later complication, without mention of misadventure at the time of the procedure
CPT/HCPCS: 36415; 80053; 85025; 85610; 85730; 99283; J7030

== ENCOUNTER 2024-07-09 08:34 | Emergency (ER) | payer OTHER, SELFPAY | END 2024-07-09 08:41 | disposition left against medical advice (07) | LOC: EXPTROY 08:42 | PROVIDERS: Emergency Provider Nurse Practitioner; PCP Family Medicine | DX: Z53.21 Procedure and treatment not carried out due to patient leaving prior to being seen by health care provider (principal) | CPT/HCPCS: 99199 ==

== ENCOUNTER 2024-07-11 07:39 | Emergency (ER) | payer OTHER, SELFPAY ==
--- NOTE | ~2024-07-11 | CT_ITS ---
EXAMINATION: CT lumbar spine wo con DATE: 07/11/2024 08:08 INDICATION: Back pain. Fall. TECHNIQUE: Computed tomography (CT) of the lumbar spine was performed without intravenous contrast. A utomated exposure control and iterative reconstruction technique were employed. The dose-length produ ct was 395.18 mGy-cm. COMPARISON: None FINDINGS: There is 9 degrees levocurvature of lumbar spine. Vertebral body heights are normal. There is mildly decreased disc height at L3-L4 and L4-L5. The following disc levels are specifically discus sed: L1-L2: The disc does not extend beyond the endplate margin. There is mild bilateral facet joint osteo arthritis. There is no neural foraminal stenosis. There is no central canal stenosis. L2-L3: The disc is bulging. There is mild bilateral facet joint osteoarthritis. There is mild left ne ural foraminal stenosis. There is mild central canal stenosis. L3-L4: The disc is bulging. There is severe bilateral facet joint osteoarthritis. There is mild bilat eral neural foraminal stenosis. There is no central canal stenosis. L4-L5: The disc is bulging. There is severe bilateral facet joint osteoarthritis. There is mild bilat eral neural foraminal stenosis. There is mild central canal stenosis. L5-S1: The disc is bulging. There is severe bilateral facet joint osteoarthritis. There is mild bilat eral neural foraminal stenosis. There is mild central canal stenosis. IMPRESSION: 1. No fracture. 2. Mild lumbar spondylosis. Reviewed, dictated and finalized at location A. [employer]
[2024-07-11 07:43] VITALS: BP 191/137; PULSE 129; RESP 18; TEMP 36.4; O2SAT 100
[2024-07-11 08:29] LABS: BEDSIDEPREGUCG Negative (Negative)
[2024-07-11 08:31] LABS: Add Urine Microscopic? NO; Appearance Urine Clear (Clear); Bilirubin Urine Negative (Negative); Blood Urine Negative (Negative); Color Urine Yellow (Yellow); Glucose Urine UA Negative (Negative); Ketones Urine Negative (Negative); Leukocyte Esterase Ur Negative LEU/UL (Negative); Nitrate Urine Negative (Negative); Protein Urine Negative (Negative); Specific Grav Ur 1.012 (1.001-1.035); Urobilinogen Urine 0.2 mg/dL (<2.0)
[2024-07-11] MEDS: KETOROLAC 30 MG/ML VIAL (*BKC) IV PUSH (08:36)
[2024-07-11] MEDS: MORPHINE SULFATE (*CRX) 4 MG/ML INJ IV PUSH (08:36)
--- NOTE | 2024-07-11 08:50 | ED_ITS ---
HPI - General Adult General Chief complaint: Fall Stated complaint: fell on butt low back pain Time Seen by Provider: 07/11/24 07:49 History of Present Illness HPI narrative: Patient is a 41-year-old female who presents emergency department with chief complaint of back pain. Patient reports that about 5 days ago she slipped and fell on her back the patient reports that she had no loss of consciousness denies bowel or bladder incontinence reports that she saw her primary care provider who put her on Flexeril and a Medrol Dosepak the patient reports that she still having pain reports that is worse with ambulation she does report that she is set up for physical therapy to begin in about a week the patient states that she has had no footdrop reports that pain is worse with standing and moving patient denies paresthesia Related Data Home Medications ?Medication ?Instructions ?Recorded ?Confirmed ?Last Taken ?Type naltrexone microspheres 380 mg 380 mg IM MONTHLY 06/05/24 06/05/24 05/26/24 History intramuscular suspension,extended release (Vivitrol) phentermine 37.5 mg capsule 37.5 mg PO DAILY 06/05/24 06/05/24 Unknown History trazodone 50 mg tablet 50 mg PO HS 06/05/24 06/10/24 06/09/24 21:00 History Allergies Allergy/AdvReac Type Severity Reaction Status Date / Time No Known Allergies Allergy Verified 07/11/24 08:27 Review of Systems Review of Systems: A 10 system review of systems was completed on the patient and is negative except for what is stated in the HPI. Nursing and ancillary documentation was reviewed. REPLACED BY [facility] Past Medical History Medical History Preeclampsia cardiomyopathy Alcohol abuse Depression Surgical History Surgical History History of incision and drainage I&D of perianal abscess on 12/30/23. KM History of section Family History Family History Father Diabetes mellitus Mother Chronic obstructive pulmonary disease Heart disease Grandparent Lung cancer Social History Social History Social History: Surrogate medical decision maker: Shannon Lopez, friend. Code status: Full code. Smoking status: Never smoker Alcohol intake: former Drinks per week: 3 Alcohol use details: Taking Vivitrol injections monthly to stop her drinking. Substance use: never Substance use type: marijuana Other substance usage details: Daily Do You Feel Safe in your Home?: Yes Lack of Transportation: YES Lack of Food: Never True Current Housing: I Have Housing Concerned About Future Housing: No Difficulty Paying Gas/Electric Bills: No Difficulty Paying for Meds: No Currently Unemployed: No Education: High School Diploma/GED Difficulty w/ Childcare or Family Care: No Living arrangements: with family Additional living arrangements comments: Lives in [place]. Has a 14-year-old son. Additional occupation/education comments: Works at [employer]. Spiritual care concerns: No Exam Narrative: GENERAL: Well-appearing, well-nourished, and in no acute distress. HEAD: Normocephalic, atraumatic. EYES: PERRLA and EOMI. ENT: Nares clear, no rhinorrhea or epistaxis. Mucous membranes moist. NECK: Supple. CHEST: Clear to auscultation. No respiratory distress. HEART: Regular rate and rhythm. No murmur heard. Normal peripheral pulses. ABDOMEN: Soft, nontender, nondistended, normal active bowel sounds. EXTREMITIES: Normal range of motion. No edema. SKIN: Warm, dry, no rash. NEURO: No focal deficits. Alert and oriented x3. No saddle anesthesia no footdrop PSYCH: Normal mood and affect. Course Vital Signs Vital signs: Vital Signs Temperature 36.4 C 07/11/24 07:43 Pulse Rate 129 H 07/11/24 07:43 Respiratory Rate 18 07/11/24 07:43 Blood Pressure 191/137 H 07/11/24 07:43 Pulse Oximetry 100 07/11/24 07:43 Temperature 36.4 C 07/11/24 07:43 Pulse Rate 129 H 07/11/24 07:43 Respiratory Rate 18 07/11/24 07:43 Blood Pressure 191/137 H 07/11/24 07:43 Pulse Oximetry 100 07/11/24 07:43 Medical Decision Making MDM Narrative Medical decision making narrative: Differential diagnosis includes lumbar radiculopathy, sciatica, low back pain, UTI, pyelonephritis Urinalysis showed no evidence UTI CT scan or spine showed 1. No fracture. 2. Mild lumbar spondylosis. Patient given prescription for anti-inflammatories muscle relaxers will be changed to more flex. The patient will also be given a short prescription for [place] Vital Signs Vital Signs: Vital Signs Temperature 36.4 C 07/11/24 07:43 Pulse Rate 129 H 07/11/24 07:43 Respiratory Rate 18 07/11/24 07:43 Blood Pressure 191/137 H 07/11/24 07:43 Pulse Oximetry 100 07/11/24 07:43 Temperature 36.4 C 07/11/24 07:43 Pulse Rate 129 H 07/11/24 07:43 Respiratory Rate 18 07/11/24 07:43 Blood Pressure 191/137 H 07/11/24 07:43 Pulse Oximetry 100 07/11/24 07:43 Lab Data Labs: Lab Results 07/11/24 07/11/24 Range/Units 08:24 08:25 Urine Color Yellow (Yellow) Urine Appearance Clear (Clear) Urine pH 6.0 (5.0-9.0) Ur Specific [place] 1.012 (1.001-1.035) Urine Protein Negative (Negative) mg/dL Urine Glucose (UA) Negative (Negative) mg/dL Urine Ketones Negative (Negative) mg/dL Ur Blood (Man) Negative (Negative) Urine Nitrate Negative (Negative) Urine Bilirubin Negative (Negative) Urine Urobilinogen 0.2 (<2.0) mg/dL Leukocyte Esterase Rfl Negative (Negative) ALFONSO/UL POC Urine HCG, Qual Negative (Negative) Discharge Plan Discharge Clinical Impression: Low back pain Patient Disposition: Home, Self-Care Condition: Stable Instructions: Antibiotic Form, Back Pain (ED) Additional Instructions: The CT scan showed no evidence of fracture. You do have several small disc bulges that are not causing impingement of the nerves. Please follow-up with your primary care provider it is recommended that you do the physical therapy if he continued to have symptoms her primary may consider doing an MRI in the future Patient Language: Syriac Prescriptions: New orphenadrine citrate 100 mg tablet extended release 100 mg PO Q12H PRN (Reason: muscle pain) Qty: 30 0RF diclofenac potassium 50 mg tablet 50 mg PO TID PRN (Reason: pain) Qty: 30 0RF hydrocodone-acetaminophen 5-325 mg tablet 1 tablet PO Q6H PRN (Reason: pain) 3 Days Qty: 12 0RF No Action phentermine 37.5 mg capsule 37.5 mg PO DAILY trazodone 50 mg tablet 50 mg PO HS Vivitrol 380 mg suspension,extended rel recon 380 mg IM MONTHLY tramadol 50 mg tablet 50 mg PO Q6H PRN (Reason: pain) Qty: 20 0RF Follow-up/Referrals: Ang,MD Eren [Primary Care Provider] - Time of Disposition: 08:56
[2024-07-11 09:26] VITALS: BP 173/118; PULSE 96; RESP 18; TEMP 37.1; O2SAT 98
--- NOTE | 2024-07-11 09:26 | PC.NURSE ---
MD aware of patient BP prior to discharge. MD states okay to discharge at this time.
--- OUTSIDE RECORDS SUMMARY | 2024-07-17 05:06 | XMS_ITS | Continuity of Care Document ---
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 Role Phone Philip Julio MD Unavailable Unavailable Allergies, Adverse Reactions, Alerts Substance Reaction Status Criticality No Known Allergies Active No Inform ation Medications Medication Instructions Dosage Effective Dates (start - stop) Status Comments Prozac 20 mg capsule take 1 Capsule by o ral route every day in the morning 20 MG - Active Procedures Procedure Date PREV VISIT, EST, AGE 18-39 OFFICE/OUTPATIENT VISIT, EST OFFICE/OUTPATIENT VISIT, EST OFFICE/OUTPATIENT VISIT, EST OFFICE/OUTPATIENT VISIT, EST OFFICE/OUTPATIENT VISIT, EST OFFICE/OUTPATIENT VISIT, EST OFFICE/OUTPATIENT VISIT, EST OFFICE/OUTPATIENT VISIT, EST OFFICE/OUTPATIENT VISIT, EST OFFICE/OUTPATIENT VISIT, EST OFFICE/OUTPATIENT VISIT, EST OFFICE/OUTPATIENT VISIT, EST OFFICE/OUTPATIENT VISIT, EST OFFICE/OUTPATIENT VISIT, EST OFFICE/OUTPATIENT VISIT, EST OFFICE/OUTPATIENT VISIT, EST OFFICE/OUTPATIENT VISIT, EST PREV VISIT, EST, AGE 18-39 OFFICE/OUTPATIENT VISIT, EST OFFICE/OUTPATIENT VISIT, EST OFFICE/OUTPATIENT VISIT, EST OFFICE/OUTPATIENT VISIT, EST OFFICE/OUTPATIENT VISIT, EST OFFICE/OUTPATIENT VISIT, EST OFFICE/OUTPATIENT VISIT, EST OFFICE/OUTPATIENT VISIT, EST OFFICE/OUTPATIENT VISIT, EST OFFICE/OUTPATIENT VISIT, EST OFFICE/OUTPATIENT VISIT, EST PREV VISIT, EST, AGE 18-39 OFFICE/OUTPATIENT VISIT, EST OFFICE/OUTPATIENT VISIT, EST OFFICE/OUTPATIENT VISIT, EST OFFICE/OUTPATIENT VISIT, EST OFFICE/OUTPATIENT VISIT, EST OFFICE/OUTPATIENT VISIT, EST OFFICE/OUTPATIENT VISIT, EST OFFICE/OUTPATIENT VISIT, EST PREV VISIT, EST, AGE 18-39 OFFICE/OUTPATIENT VISIT, EST OFFICE/OUTPATIENT VISIT, EST OFFICE/OUTPATIENT VISIT, EST OFFICE/OUTPATIENT VISIT, EST OFFICE/OUTPATIENT VISIT, EST OFFICE/OUTPATIENT VISIT, EST OFFICE/OUTPATIENT VISIT, EST PREV VISIT, EST, AGE 18-39 OFFICE/OUTPATIENT VISIT, EST OFFICE/OUTPATIENT VISIT, EST OFFICE/OUTPATIENT VISIT, EST OFFICE/OUTPATIENT VISIT, EST OFFICE/OUTPATIENT VISIT, EST OFFICE/OUTPATIENT VISIT, EST OFFICE/OUTPATIENT VISIT, EST OFFICE/OUTPATIENT VISIT, EST OFFICE/OUTPATIENT VISIT, EST OFFICE/OUTPATIENT VISIT, EST OFFICE/OUTPATIENT VISIT, EST PREV VISIT, EST, AGE 18-39 OFFICE/OUTPATIENT VISIT, EST OFFICE/OUTPATIENT VISIT, EST OFFICE/OUTPATIENT VISIT, EST OFFICE/OUTPATIENT VISIT, EST OFFICE/OUTPATIENT VISIT, EST OFFICE/OUTPATIENT VISIT, EST OFFICE/OUTPATIENT VISIT, EST OFFICE/OUTPATIENT VISIT, EST OFFICE/OUTPATIENT VISIT, EST OFFICE/OUTPATIENT VISIT, EST PREV VISIT, EST, AGE 18-39 OFFICE/OUTPATIENT VISIT, EST OFFICE/OUTPATIENT VISIT, EST OFFICE/OUTPATIENT VISIT, EST OFFICE/OUTPATIENT VISIT, EST OFFICE/OUTPATIENT VISIT, EST OFFICE/OUTPATIENT VISIT, EST OFFICE/OUTPATIENT VISIT, EST OFFICE/OUTPATIENT VISIT, EST OFFICE/OUTPATIENT VISIT, EST OFFICE/OUTPATIENT VISIT, EST Advance Directives Directive Yes / No Effective Date File Name No Information Encounters Encounter Description Practice Location Reason(s) For Visit Diagnoses Date Provider Providers Copied on Encounter [facility], [address] [place], [address], tel:[phone] [facility] Medicine No Information 2 Sumanth Palacios. [address], [place], [place], [address] , [place]. tel:[phone] PREV VISIT, EST, AGE 18-39 [facility], [address], [place], [place], [address], [place] tel:[phone] [facility] physical (chief complaint) Encounter for general adult medical examination without abnormal findings 2 Sumanth Palacios. [address], [place], [place], [address] , [place]. tel:[phone] OFFICE/OUTPA TIENT VISIT, EST [facility], [address], [address], [place] tel:[phone] [facility] Medicine alcohol1 (chief complaint) weight gain1 (chief complaint) HCT (chief complaint) HLP (chief complaint) Generalized Anxiety DisorderAlcohol dependence, in remissionHyperlipid emiaSecondary polycythemiaAbnorma l weight gain 1 Sumanth Palacios. [address], [place], [place], [address] , [place]. tel:[phone] OFFICE/OUTPA TIENT VISIT, [facility], [address], [place], [place], [address], [place] tel:[phone] [facility] Alcohol1 (chief complaint) anxitey1 (chief complaint) GERD1 (chief complaint) Alcohol dependence with intoxication, unspecifiedGenerali zed Anxiety DisorderGastritis, unspecified, without bleeding 1 Sumanth Palacios. [address], [place], [place], [address] , [place]. tel:[phone] OFFICE/OUTPA TIENT VISIT, [facility], [address], [place], [place], [address], [place] tel:[phone] [facility] GERD w/o esophagitisAlcohol dependence, in remissionGeneralize d Anxiety Disorder 1 Sumanth Palacios. [address], [place], [place], [address] , [place]. tel:[phone] [facility], [address], [place], [address], [place] tel:[phone] [facility] anxiety1 (chief complaint) alcohol1 (chief complaint) GERD1 (chief complaint) Generalized Anxiety DisorderAlcohol dependence, in remissionGERD w/o esophagitis 1 Sumanth Palacios. [address], [place], [place], [address] , [place]. tel:[phone] OFFICE/OUTPA TIENT VISIT, [facility], [address], [place], [place], [address], [place] tel:[phone] [facility] anxiety1 (chief complaint) alcohol1 (chief complaint) hirsutism1 (chief complaint) hyponaremi a1 (chief complaint) weight gain1 (chief complaint) HirsutismGeneralize d Anxiety DisorderAlcohol dependence, in remissionAbnormal weight gainHyponatremia 1 Sumanth Palacios. [address], [place], [address] , [place]. tel:[phone] OFFICE/OUTPA TIENT VISIT, [facility], [address], [place], [address], [place] tel:[phone] [facility] alcohol1 (chief complaint) anxiety1 (chief complaint) hirsutism1 (chief complaint) hyponatrem ia1 (chief complaint) HirsutismGeneralize d Anxiety DisorderAlcohol dependence, in remissionHyponatrem ia 1 Sumanth Lin [address], [place], [place], [address] , [place]. tel:[phone] Referring Provider: Vaibhav Esqueda [address], [place], [place], [address]. tel:[phone] OFFICE/OUTPA TIENT VISIT, [facility], [address] [place] [address] [address], [place], [place], [address], [place] tel:[phone] [facility] anxiety1 (chief complaint) hirsutism1 (chief complaint) insomnia1 (chief complaint) HirsutismGeneralize d Anxiety DisorderInsomnia 0 Sumanth Lin [address], [place], [address] , [place]. tel:[phone] Referring Provider: Vaibhav Esqueda [address], [place], [place], [address]. tel:[phone] OFFICE/OUTPA TIENT VISIT, [facility], [address], [place], [place], [address], [place] tel:[phone] [facility] anxiety1 (chief complaint) weight (chief complaint) Abnormal weight gainGeneralized Anxiety Disorder 0 Sumanth Lin [address], [place], [place], [address] , [place]. tel:[phone] Referring Provider: Vaibhav Esqueda [address], [place], [address]. tel:[phone] OFFICE/OUTPA TIENT VISIT, [facility], [address], [place], [place], [address], [place] tel:[phone] [facility] anxiety1 (chief complaint) weight gain1 (chief complaint) Generalized Anxiety DisorderAbnormal weight gain 0 Sumanth Palacios. [address], [place], [place], [address] , [place]. tel:[phone] Referring Provider: Philip Julio, [address], [place], [place], [address]. tel:[phone] OFFICE/OUTPA TIENT VISIT, [facility], [address], [place], [place], [address], [place] tel:[phone] [facility] HLP (chief complaint) hCT (chief complaint) glucose1 (chief complaint) anxiety1 (chief complaint) weight gain1 (chief complaint) HyperlipidemiaHyper glycemiaSecondary polycythemiaGeneral ized Anxiety DisorderAbnormal weight gain Feb- 0 Sumanth Palacios. [address], [place], [place], [address] , [place]. tel:[phone] Referring Provider: Philip Julio [address], [place], [place], [address]. tel:[phone] OFFICE/OUTPA TIENT VISIT, [facility], [address], [place], [place], [address], [place] tel:[phone] [facility] anxiety1 (chief complaint) HTN (chief complaint) Generalized Anxiety DisorderAbnormal weight lossHirsutism Jan- 0 Sumanth Palacios. [address], [place], [place], [address] , [place]. tel:[phone] Referring Provider: Philip Julio [address], [place], [place], [address]. tel:[phone] OFFICE/OUTPA TIENT VISIT, [facility], [address], [place], [place], [address], [place] tel:[phone] [facility] anxiety1 (chief complaint) weight loss1 (chief complaint) Generalized Anxiety DisorderAbnormal weight loss 0 0 Sumanth Palacios. [address], [place], [place], [address] , [place]. tel:[phone] Referring Provider: Philip Julio, [address], [place], [place], [address]. tel:[phone] OFFICE/OUTPA TIENT VISIT, [facility], [address], [place], [place], [address], [place] tel:[phone] [facility] work excuse1 (chief complaint) Fatigue 0 Sumanth Palacios. [address], [place], [place], [address] , [place]. tel:[phone] Referring Provider: Philip Julio, [address], [place], [place], [address]. tel:[phone] OFFICE/OUTPA TIENT VISIT, [facility], [address], [place], [place], [address], [place] tel:[phone] [facility] anxiety1 (chief complaint) weight1 (chief complaint) Abnormal weight gainGeneralized Anxiety Disorder 0 Sumanth Palacios. [address], [place], [place], [address] , [place]. tel:[phone] Referring Provider: Vaibhav Esqueda [address], [place], [place], [address]. tel:[phone] OFFICE/OUTPA TIENT VISIT, [facility], [address], [place], [place], [address], [place] tel:[phone] [facility] HLP (chief complaint) anxiety1 (chief complaint) Generalized Anxiety DisorderHyperlipide caitlyn 0 0 Sumanth Palacios. [address], [place], [place], [address] , [place]. tel:[phone] Referring Provider: Philip Julio [address], [place], [place], [address]. tel:[phone] OFFICE/OUTPA TIENT VISIT, EST [facility], [address], [place], [address], [place] tel:[phone] [facility] anxiety1 (chief complaint) weight gain1 (chief complaint) Abnormal weight gainGeneralized Anxiety Disorder Apr-2 0 Sumanth Palacios. [address], [place], [place], [address] , [place]. tel:[phone] Referring Provider: Philip Julio [address], [place], [place], [address]. tel:[phone] OFFICE/OUTPA TIENT VISIT, [facility], [address], [place], [place], [address], [place] tel:[phone] [facility] anxiety1 (chief complaint) hand numbness1 (chief complaint) Paresthesia of skinGeneralized Anxiety Disorder Aug- 0 Sumanth Palacios. [address], [place], [place], [address] , [place]. tel:[phone] Referring Provider: Vaibhav Esqueda [address], [place], [place], [address]. tel:[phone] OFFICE/OUTPA TIENT VISIT, [facility], [address], [place], [address], [place] tel:[phone] [facility] tingling1 (chief complaint) weight loss1 (chief complaint) anxiety1 (chief complaint) Other muscle spasmParesthesia of skinGeneralized Anxiety DisorderAbnormal weight loss Fe- 0- 0 Sumanth Palacios. [address], [place], [address] , [place]. tel:[phone] Referring Provider: Vaibhav Esqueda [address], [place], [place], [address]. tel:[phone] PREV VISIT, EST, AGE 18-39 [facility], [address], [place], [address], [place] tel:[phone] [facility] Physical (chief complaint) Encntr for general adult medical exam w/o abnormal findings 0 0 Sumanth Palacios. [address], [place], [place], [address] , [place]. [phone] Referring Provider: Vaibhav Esqueda [address], [place], [place], [address]. tel:[phone] OFFICE/OUTPA TIENT VISIT, [facility], [address], [place], [place], [address], [place] tel:[phone] [facility] anxiety1 (chief complaint) weight1 (chief complaint) Abnormal weight gainGeneralized Anxiety Disorder 9 Sumanth Palacios. [address], [place], [place], [address] , [place]. [phone] Referring Provider: Vaibhav Esqueda [address], [place], [place], [address]. tel:[phone] OFFICE/OUTPA TIENT VISIT, [facility], [address], [place], [place], [address], [place] tel:[phone] [facility] weight loss1 (chief complaint) anxiety1 (chief complaint) Abnormal weight lossGeneralized Anxiety Disorder 9 Sumanth Lin [address], [place], [place], [address] , [place]. [phone] Referring Provider: Vaibhav Esqueda [address], [place], [place], [address]. tel:[phone] OFFICE/OUTPA TIENT VISIT, [facility], [address], [place], [place], [address], [place] tel:[phone] [facility] weight loss1 (chief complaint) anxiety1 (chief complaint) Generalized Anxiety DisorderAbnormal weight loss 9 Sumanth Palacios. [address], [place], [place], [address] , [place]. [phone] Referring Provider: Vaibhav Esquead [address], [place], [place], [address]. tel:[phone] OFFICE/OUTPA TIENT VISIT, [facility], [address], [place], [address], [place] tel:[phone] [facility] fatty liver1 (chief complaint) HLP (chief complaint) MCV (chief complaint) weight loss1 (chief complaint) anxiety1 (chief complaint) HyperlipidemiaAbnor mal weight lossGeneralized Anxiety DisorderFatty liverOther specified disease of bloodHyperglycemia 0 9 Sumanth Palacios. [address], [place], [address] , [place]. tel:[phone] Referring Provider: Vaibhav Esqueda [address], [place], [place], [address]. tel:[phone] OFFICE/OUTPA TIENT VISIT, [facility], [address], [place], [place], [address], [place] tel:[phone] [facility] anxiety1 (chief complaint) LFT (chief complaint) obesity1 (chief complaint) HLP (chief complaint) sleep apnea1 (chief complaint) Liver diseaseHyperlipidem iaSleep apneaGeneralized Anxiety DisorderAbnormal weight gain 9 Sumanth Palacios. [address], [place], [place], [address] , [place]. tel:[phone] Referring Provider: Vaibhav Esqueda [address], [place], [place], [address]. tel:[phone] OFFICE/OUTPA TIENT VISIT, [facility], [address], [place], [address], [place] tel:[phone] [facility] HTN (chief complaint) anxiety1 (chief complaint) LFT (chief complaint) Abnormal weight lossLiver diseaseGeneralized Anxiety Disorder 9 Sumanth Palacios. [address], [place], [address] , [place]. tel:[phone] Referring Provider: Vaibhav Esqueda [address], [place], [place], [address]. tel:[phone] OFFICE/OUTPA TIENT VISIT, [facility], [address], [place], [address], [place] tel:[phone] [facility] weight1 (chief complaint) anxiety1 (chief complaint) lFt (chief complaint) sleep apnea1 (chief complaint) Sleep apneaLiver diseaseGeneralized Anxiety DisorderSecondary polycythemiaHyperli pidemiaAbnormal weight gain 9 Sumanth Palacios. [address], [place], [address] , [place]. tel:[phone] Referring Provider: Vaibhav Esqueda [facility] A, [place], [place], [address]. tel:[phone] OFFICE/OUTPA TIENT VISIT, [facility], [address], [place], [place], [address], [place] tel:[phone] [facility] anxiety1 (chief complaint) weight1 (chief complaint) sleep apnea1 (chief complaint) liver1 (chief complaint) Abnormal weight gainLiver diseaseGeneralized Anxiety DisorderSleep apnea 9 Sumanth Palacios. [address], [place], [address] , [place]. tel:[phone] Referring Provider: Vaibhav Esqueda [address], [place], [place], [address]. tel:[phone] OFFICE/OUTPA TIENT VISIT, [facility], [address], [place], [address], [place] tel:[phone] [facility] HLP (chief complaint) LFT (chief complaint) polycythem ia1 (chief complaint) glucose1 (chief complaint) anxiety1 (chief complaint) HyperlipidemiaLiver diseaseHyperglycemi aSecondary polycythemiaGeneral ized Anxiety DisorderAbnormal weight gain 9 Sumanth Lin [address], [place], [address] , [place]. tel:[phone] Referring Provider: Vaibhav Esqueda [address], [place], [address]. tel:[phone] OFFICE/OUTPA TIENT VISIT, EST [facility], [address], [place], [address], [place] tel:[phone] [facility] GI (chief complaint) Viral infection 9 Sumanth Palacios. [address], [place], [address] , [place]. tel:[phone] Referring Provider: Philip Julio, [address], [place], [place], [address]. tel:[phone] OFFICE/OUTPA TIENT VISIT, [facility], [facility] [address], [place], [address], [place] tel:[phone] [facility] weight gain1 (chief complaint) anxiety1 (chief complaint) cough1 (chief complaint) insomnia1 (chief complaint) Acute bronchitisInsomniaG eneralized Anxiety DisorderAbnormal weight gainEssential (primary) hypertension 9 Sumanth Palacios. [address], [place], [address] , [place]. tel:[phone] Referring Provider: Vaibhav Esqueda [address], [place], [place], [address]. tel:[phone] PREV VISIT, EST, AGE 18-39 [facility], [address], [place], [address], [place] tel:[phone] [facility] Physical (chief complaint) Encounter for general adult medical exam w abnormal findingsAbnormal weight gainGeneralized Anxiety DisorderOccult blood in fecesEssential (primary) hypertension 8 Sumanth Palacios. [address], [place], [address] , [place]. tel:[phone] Referring Provider: Vaibhav Esqueda [address], [place], [place], [address]. tel:[phone] OFFICE/OUTPA TIENT VISIT, [facility], [address], [place], [address], [place] tel:[phone] [facility] insomnia1 (chief complaint) anxiety1 (chief complaint) sob1 (chief complaint) Generalized Anxiety DisorderAsthmaInsom niaSleep disorder, unspecified 0 7 Sumanth Palacios. [address], [place], [address] , [place]. tel:[phone] Referring Provider: Philip Julio, [address], [place], [place], [address]. tel:[phone] OFFICE/OUTPA TIENT VISIT, [facility], [address], [place], [address], [place] tel:[phone] [facility] anxiety1 (chief complaint) insomnia1 (chief complaint) InsomniaGeneralized Anxiety Disorder 7 Sumanth Palacios. [address], [place], [address] , [place]. tel:[phone] Referring Provider: Philip Julio [address], [place], [place], [address]. tel:[phone] OFFICE/OUTPA TIENT VISIT, [facility], [address], [place], [address], [place] tel:[phone] [facility] back pain1 (chief complaint) HLP (chief complaint) anxiety1 (chief complaint) insomnia1 (chief complaint) HyperlipidemiaBack painGeneralized Anxiety Disorder 7 Sumanth Palacios. [address], [place], [place], [address] , [place]. tel:[phone] Referring Provider: Vaibhav Esqueda [address], [place], [place], [address]. tel:[phone] OFFICE/OUTPA TIENT VISIT, [facility], [address], [place], [address], [place] tel:[phone] [facility] anxiety1 (chief complaint) insomnia1 (chief complaint) marijauna1 (chief complaint) weight loss1 (chief complaint) InsomniaGeneralized Anxiety DisorderCannabis abuse, uncomplicatedAbnorm al weight loss 7 Sumanth Palacios. [address], [place], [address] , [place]. tel:[phone] Referring Provider: Vaibhav Esqueda [address], [place], [place], [address]. tel:[phone] OFFICE/OUTPA TIENT VISIT, [facility], [address], [place], [address], [place] tel:[phone] [facility] anxiety1 (chief complaint) insomnia1 (chief complaint) HLP (chief complaint) Generalized Anxiety DisorderHyperlipide miaInsomniaBody mass index (BMI) 32.0-32.9, adult Fe 7 Sumanth Lin [address], [place], [address] , [place]. tel:[phone] Referring Provider: Vaibhav Esqueda [address], [place], [address]. tel:[phone] OFFICE/OUTPA TIENT VISIT, [facility], [address], [place], [address], [place] tel:[phone] [facility] anxiety1 (chief complaint) insomnia1 (chief complaint) obesity1 (chief complaint) Generalized Anxiety DisorderBody mass index (BMI) 33.0-33.9, adultInsomnia 7 Sumanth Lin [address], [place], [address] , [place]. tel:[phone] Referring Provider: Vaibhav Esqueda [address], [place], [place], [address]. tel:[phone] OFFICE/OUTPA TIENT VISIT, [facility], [address], [place], [place], [address], [place] tel:[phone] [facility] HLP (chief complaint) MCV (chief complaint) toothache1 (chief complaint) anxiety1 (chief complaint) HyperlipidemiaAtypi jaguar facial painOther specified disease of bloodInsomnia 0 6 Sumanth Palacios. [address], [place], [address] , [place]. tel:[phone] Referring Provider: Vaibhav Esqueda [address], [place], [address]. tel:[phone] PREV VISIT, EST, AGE 18-39 [facility], [address], [place], [address], [place] tel:[phone] [facility] PHysical (chief complaint) Encounter for general adult medical exam w abnormal findingsGeneralized anxiety disorderInsomnia 6 Sumanth Palacios. [address], [place], [address] , [place]. tel:[phone] Referring Provider: Vaibhav Esqueda [address] [facility] [address], [place], [place], [address]. tel:[phone] OFFICE/OUTPA TIENT VISIT, EST [facility], [address], [place], [address], [place] tel:[phone] [facility] anxiety1 (chief complaint) hematuria1 (chief complaint) HTN (chief complaint) insomnia1 (chief complaint) Essential (primary) hypertensionHematur ia, unspecifiedGenerali zed anxiety disorderInsomnia 6 Sumanth Lin [address], [place], [address] , [place]. tel:[phone] Referring Provider: Vaibhav Esqueda [address], [place], [address]. tel:[phone] OFFICE/OUTPA TIENT VISIT, EST [facility], [address] [place], [place], [address], [place] tel:[phone] [facility] shoulder pain1 (chief complaint) hematuria (chief complaint) anxiety1 (chief complaint) HematuriaGeneralize d anxiety disorderPain in rt shoulder 6 Sumanth Lin [address], [place], [place], [address] , [place]. tel:[phone] Referring Provider: Philip Julio, [address], [place], [place], [address]. tel:[phone] OFFICE/OUTPA TIENT VISIT, [facility], [address], [place], [place], [address], [place] tel:[phone] [facility] anxiety1 (chief complaint) insomnia1 (chief complaint) Generalized anxiety disorderOther insomnia 0 6 Sumanth Palacios. [address], [place], [place], [address] , [place]. tel:[phone] Referring Provider: Vaibhav Esqueda [address], [place], [place], [address]. tel:[phone] OFFICE/OUTPA TIENT VISIT, [facility], [address], [place], [address], [place] tel:[phone] [facility] Anxiety1 (chief complaint) insomnia1 (chief complaint) fatigue1 (chief complaint) Other insomniaOther fatigueGeneralized anxiety disorder 8 5 Sumanth Palacios. [address], [place], [place], [address] , [place]. tel:[phone] Referring Provider: Vaibhav Esqueda [address], [place], [address]. tel:[phone] OFFICE/OUTPA TIENT VISIT, [facility], [address], [place], [place], [address], [place] tel:[phone] [facility] chest pain1 (chief complaint) anxiety1 (chief complaint) Generalized anxiety disorderHematuria 7 5 Sumanth Palacios. [address], [place], [address] , [place]. tel:[phone] Referring Provider: Vaibhav Esqueda [address], [place], [place], [address]. tel:[phone] OFFICE/OUTPA TIENT VISIT, [facility], [address], [place], [address], [place] tel:[phone] [facility] Anxiety (chief complaint) HLP (chief complaint) hematuria (chief complaint) chest pain (chief complaint) Dietary surveillance and counselingGeneraliz ed anxiety disorderHematuriaHy perlipidemiaChest pain 5 Sumanth Palacios. [address], [place], [address] , [place]. tel:[phone] Referring Provider: Vaibhav Esqueda [address], [place], [address]. tel:[phone] PREV VISIT, EST, AGE 18-39 [facility], [address], [place], [address], [place] tel:[phone] [facility] PHysical (chief complaint) Routine medical examDietary surveillance and counseling 5 Sumanth Palacios. [address], [place], [place], [address] , [place]. tel:[phone] Referring Provider: Vaibhav Esqueda [address], [place], [place], [address]. tel:[phone] OFFICE/OUTPA TIENT VISIT, EST [facility], [address], [place], [place], [address], [place] tel:[phone] [facility] rectal bleeding (chief complaint) anxiety (chief complaint) HTN (chief complaint) HLP (chief complaint) Unspecified essential hypertensionOther and unspecified hyperlipidemiaGener alized anxiety disorderRectal bleedingDietary surveillance and counseling 5 Sumanth Palacios. [address], [place], [address] , [place]. tel:[phone] Referring Provider: Vaibhav Esqueda [address], [place], [address]. tel:[phone] OFFICE/OUTPA TIENT VISIT, EST [facility], [address], [place], [address], [place] tel:[phone] [facility] anxiety (chief complaint) alcohol (chief complaint) Generalized anxiety disorderAlcohol dependence in remission Flash- 3-201 5 Sumanth Palacios. [address], [place], [address] , [place]. tel:[phone] Referring Provider: Vaibhav Esqueda [address], [place], [place], [address]. tel:[phone] OFFICE/OUTPA TIENT VISIT, [facility], [address], [place], [address], [place] tel:[phone] [facility] anxiety (chief complaint) alcohol (chief complaint) Generalized anxiety disorderDepression May-0 6- 5 Sumanth Palacios. [address], [place], [address] , [place]. tel:[phone] Referring Provider: Vaibhav Esqueda [address], [place], [place], [address]. tel:[phone] OFFICE/OUTPA TIENT VISIT, [facility], [address], [place], [address], [place] tel:[phone] [facility] anxiety (chief complaint) HTN (chief complaint) Dietary surveillance and counselingDepressio nGeneralized anxiety disorder Apr-0 6 5 Sumanth Palacios. [address], [place], [place], [address] , [place]. tel:[phone] Referring Provider: Vaibhav Esqueda [address], [place], [address]. tel:[phone] OFFICE/OUTPA TIENT VISIT, [facility], [address], [place], [place], [address], [place] tel:[phone] [facility] anxiety (chief complaint) alcohol (chief complaint) Dietary surveillance and counselingSedative, hypnotic or anxiolytic dependence, unspecifiedOther and unspecified alcohol dependence, episodic drinking behavior Mar-0 9-201 5 Sumanth Palacios. [address], [place], [address] , [place]. tel:[phone] Referring Provider: Vaibhav Esqueda [address], [place], [address]. tel:[phone] OFFICE/OUTPA TIENT VISIT, [facility], [address], [place], [address], [place] tel:[phone] [facility] sick (chief complaint) cardiomyop athy (chief complaint) alcohol (chief complaint) anxiety (chief complaint) Dietary surveillance and counselingOther and unspecified diseases of upper respiratory tractCardiomyopathy , Other PrimaryOther and unspecified alcohol dependence, episodic drinking behaviorGeneralized anxiety disorder 5 Sumanth Palacios. [address], [place], [address] , [place]. [phone] Referring Provider: Vaibhav Esqueda [address], [place], [address]. tel:[phone] OFFICE/OUTPA TIENT VISIT, [facility], [address], [place], [address], [place] tel:[phone] [facility] HTN (chief complaint) alcohol abuse (chief complaint) anxiety (chief complaint) Dietary surveillance and counselingCardiomyo oscar, Other PrimaryHypertension , UnspecifiedOther and unspecified alcohol dependence, episodic drinking behaviorGeneralized anxiety disorder 5 Sumanth Palacios. [address], [place], [address] , [place]. [phone] Referring Provider: [address], [place], [address]. tel:[phone] OFFICE/OUTPA TIENT VISIT, [facility], [address], [place], [address], [place] tel:[phone] [facility] alcohol (chief complaint) anxiety (chief complaint) HLP (chief complaint) Generalized anxiety disorderOther and unspecified hyperlipidemiaOther and unspecified alcohol dependence, unspecified drinking behaviorDietary surveillance and counseling 4 Sumanth Palacios. [address], [place], [place], [address] , [place]. [phone] Referring Provider: Philip Julio, [address], [place], [place], [address]. tel:[phone] OFFICE/OUTPA TIENT VISIT, [facility], [address], [place], [address], [place] tel:[phone] [facility] insomnia (chief complaint) HTN (chief complaint) anxiety (chief complaint) cardiomyop athy (chief complaint) Dietary surveillance and counselingHypertens ion, UnspecifiedGenerali zed anxiety disorderCardiomyopa thy, Other Primary 4 Sumanth Palacios. [address], [place], [address] , [place]. [phone] Referring Provider: Vaibhav Esqueda [address], [place], [place], [address]. tel:[phone] OFFICE/OUTPA TIENT VISIT, [facility], [address], [place], [place], [address], [place] tel:[phone] [facility] HTN (chief complaint) anxiety (chief complaint) viral infection (chief complaint) insomnia (chief complaint) Dietary surveillance and counselingHypertens ion, UnspecifiedInsomnia , OtherViral Infection, UnspecifiedGenerali zed anxiety disorder 4 Sumanth Palacios. [address], [place], [address] , [place]. [phone] Referring Provider: Vaibhav Esqueda [address], [place], [address]. tel:[phone] OFFICE/OUTPA TIENT VISIT, [facility], [address], [place], [address], [place] tel:[phone] [facility] anxiety (chief complaint) HTN (chief complaint) Dietary surveillance and counselingHypertens ion, UnspecifiedGenerali zed anxiety disorder 4 Sumanth Palacios. [address], [place], [address] , [place]. [phone] Referring Provider: Philip Julio [address], [place], [place], [address]. tel:[phone] PREV VISIT, EST, AGE 18-39 [facility], [address], [place], [address], [place] tel:[phone] [facility] Physical (chief complaint) Dietary surveillance and counselingRoutine Medical ExamRoutine Medical Exam 4 Sumanth Palacios. [address], [place], [place], [address] , [place]. [phone] Referring Provider: Vaibhav Esqueda [address], [place], [place], [address]. tel:[phone] OFFICE/OUTPA TIENT VISIT, [facility], [address], [place], [address], [place] tel:[phone] [facility] anxiety (chief complaint) sick (chief complaint) HTN (chief complaint) Generalized anxiety disorderAcute upper respiratory infections of other multiple sitesHypertension, Unspecified 4 Sumanth Palacios. [address], [place], [place], [address] , [place]. [phone] Referring Provider: Vaibhav Esqueda [address], [place], [place], [address]. tel:[phone] OFFICE/OUTPA TIENT VISIT, EST [facility], [address], [place], [address], [place] tel:[phone] [facility] back pain (chief complaint) anxiety (chief complaint) weight gain (chief complaint) Dietary surveillance and counselingLumbagoGe neralized anxiety disorderObesity 4 Sumanth Palacios. [address], [place], [address] , [place]. tel:[phone] Referring Provider: Vaibhav Esqu[address], [place], [place], [address]. tel:[phone] OFFICE/OUTPA TIENT VISIT, EST [facility], [address], [place], [place], [address], [place] tel:[phone] [facility] tailbone (chief complaint) anxiety (chief complaint) abdominal pain (chief complaint) Generalized anxiety disorderAbdominal PainLumbagoDietary surveillance and counseling 4 Sumanth Palacios. [address], [place], [address] , [place]. tel:[phone] Referring Provider: Philip Julio, [address], [place], [place], [address]. tel:[phone] OFFICE/OUTPA TIENT VISIT, [facility], [address], [place], [place], [address], [place] [phone] [facility] anxiety (chief complaint) tootheache (chief complaint) Dietary surveillance and counselingAtypical face painGeneralized anxiety disorderMajor depressive affective disorder, single episode, mild degree 4 Sumanth Palacios. [address], [place], [place], [address] , [place]. tel:[phone] Referring Provider: Philip Julio [address], [place], [place], [address]. tel:[phone] OFFICE/OUTPA TIENT VISIT, [facility], [address], [place], [place], [address], [place] tel:[phone] [facility] anxiety (chief complaint) Dietary surveillance and counselingGeneraliz ed anxiety disorderMajor depressive affective disorder, single episode, mild degree 3 Sumanth Palacios. [address], [place], [address] , [place]. tel:[phone] Referring Provider: Philip Julio, [address], [place], [place], [address]. tel:[phone] OFFICE/OUTPA TIENT VISIT, [facility], [address], [place], [address], [place] tel:[phone] [facility] anxiety (chief complaint) frequent bowel movement (chief complaint) Dietary surveillance and counselingGeneraliz ed anxiety disorderMajor depressive affective disorder, single episode, mild degree 3 Sumanth Palacios. [address], [place], [place], [address] , [place]. tel:[phone] Referring Provider: Philip Julio, [address], [place], [place], [address]. tel:[phone] OFFICE/OUTPA TIENT VISIT, [facility], [address], [place], [place], [address], [place] tel:[phone] [facility] anxiety (chief complaint) Dietary surveillance and counselingGeneraliz ed anxiety disorderMajor depressive affective disorder, single episode, mild degree 3 Sumanth Palacios. [address], [place], [place], [address] , [place]. [phone] Referring Provider: Philip Julio, [address], [place], [place], [address]. tel:[phone] OFFICE/OUTPA TIENT VISIT, [facility], [address], [place], [place], [address], [place] tel:[phone] [facility] anxiety (chief complaint) Dietary surveillance and counselingGeneraliz ed anxiety disorderMajor depressive affective disorder, single episode, mild degree 3 Sumanth Palacios. [address], [place], [place], [address] , [place]. [phone] Referring Provider: Philip Julio [address], [place], [place], [address]. tel:[phone] OFFICE/OUTPA TIENT VISIT, [facility], [address], [place], [place], [address], [place] tel:[phone] [facility] Sinus (chief complaint) Dietary surveillance and counselingAcute frontal sinusitis 3 Sumanth Palacios. [address], [place], [place], [address] , [place]. [phone] Referring Provider: Philip Julio [address], [place], [place], [address]. tel:[phone] OFFICE/OUTPA TIENT VISIT, EST [facility], [address], [place], [place], [address], [place] tel:[phone] [facility] Anxiety (chief complaint) headache (chief complaint) Dietary surveillance and counselingGeneraliz ed anxiety disorderMajor depressive affective disorder, single episode, mild degree 3 Sumanth Palacios. [address], [place], [place], [address] , [place]. tel:[phone] Referring Provider: Philip Julio, [address], [place], [place], [address]. tel:[phone] PREV VISIT, EST, AGE 18-39 [facility], [address], [place], [address], [place] tel:[phone] [facility] Physical (chief complaint) Dietary surveillance and counselingRoutine Medical ExamRoutine Medical Exam 3 Sumanth Palacios. [address], [place], [place], [address] , [place]. tel:[phone] Referring Provider: Vaibhav Esqueda [address], [place], [place], [address]. tel:[phone] OFFICE/OUTPA TIENT VISIT, EST [facility], [address], [place], [place], [address], [place] tel:[phone] [facility] anxiety (chief complaint) Dietary surveillance and counselingGeneraliz ed anxiety disorderMajor depressive affective disorder, single episode, mild degree 3 Sumanth Palacios. [address], [place], [place], [address] , [place]. tel:[phone] Referring Provider: Vaibhav Esqueda [address], [place], [place], [address]. tel:[phone] OFFICE/OUTPA TIENT VISIT, EST [facility], [address], [place], [address], [place] tel:[phone] [facility] anxiety (chief complaint) Dietary surveillance and counselingGeneraliz ed anxiety disorder 3 Sumanth Palacios. [address], [place], [place], [address] , [place]. tel:[phone] Referring Provider: Philip Julio, [address], [place], [place], [address]. tel:[phone] OFFICE/OUTPA TIENT VISIT, [facility], [address], [place], [place], [address], [place] tel:[phone] [facility] anxiety (chief complaint) Dietary surveillance and counselingGeneraliz ed anxiety disorder 3 Sumanth Palacios. [address], [place], [address] , [place]. tel:[phone] Referring Provider: Philip Julio, [address], [place], [place], [address]. tel:[phone] OFFICE/OUTPA TIENT VISIT, [facility], [address], [place], [place], [address], [place] tel:[phone] [facility] anxiety (chief complaint) HTN (chief complaint) Obeisty (chief complaint) Hypertension, UnspecifiedGenerali zed anxiety disorderObesity 3 Sumanth Palacios. [address], [place], [place], [address] , [place]. [phone] Referring Provider: Vaibhav Esqueda [address], [place], [place], [address]. tel:[phone] OFFICE/OUTPA TIENT VISIT, [facility], [address], [place], [place], [address], [place] tel:[phone] [facility] HTN (chief complaint) Dietary surveillance and counselingHypertens ion, UnspecifiedCardiomy opathy, Other Primary 3 Sumanth Palacios. [address], [place], [place], [address] , [place]. [phone] Referring Provider: Philip Julio, [address], [place], [place], [address]. tel:[phone] OFFICE/OUTPA TIENT VISIT, [facility], [address], [place], [place], [address], [place] tel:[phone] [facility] anxiety (chief complaint) toothache (chief complaint) Dietary surveillance and counselingGeneraliz ed anxiety disorderMajor depressive affective disorder, single episode, mild degreeHypertension, Unspecified Fe 3 Sumanth Palacios. [address], [place], [address] , [place]. tel:[phone] Referring Provider: Vaibhav Esqueda [address], [place], [place], [address]. tel:[phone] OFFICE/OUTPA TIENT VISIT, [facility], [address], [place], [place], [address], [place] tel:[phone] [facility] toothache (chief complaint) anxiety (chief complaint) Dietary surveillance and counselingHypertens ion, UnspecifiedGenerali zed anxiety disorderAtypical face pain 3 Sumanth Palacios. [address], [place], [place], [address] , [place]. tel:[phone] Referring Provider: Vaibhav Esqueda [address], [place], [place], [address]. tel:[phone] OFFICE/OUTPA TIENT VISIT, [facility], [address], [place], [place], [address], [place] tel:[phone] [facility] URI (chief complaint) toothache (chief complaint) anxiety (chief complaint) Dietary surveillance and counselingAcute upper respiratory infections of other multiple sitesAtypical face painGeneralized anxiety disorder 2 Sumanth Palacios. [address], [place], [address] , [place]. tel:[phone] Referring Provider: Vaibhav Esqueda [address], [place], [place], [address]. tel:[phone] OFFICE/OUTPA TIENT VISIT, [facility], [address], [place], [place], [address], [place] tel:[phone] [facility] ADD (chief complaint) anxiety (chief complaint) toothache (chief complaint) Dietary surveillance and counselingGeneraliz ed anxiety disorderAttention deficit disorder of childhood without mention of hyperactivityAtypic al face pain 2 Sumanth Palacios. [address], [place], [address] , [place]. tel:[phone] Referring Provider: Vaibhav Esqueda [address], [place], [place], [address]. tel:[phone] OFFICE/OUTPA TIENT VISIT, [facility], [address], [place], [place], [address], [place] tel:[phone] [facility] asthma (chief complaint) anxiety (chief complaint) ADD (chief complaint) jaw pain (chief complaint) Dietary surveillance and counselingAsthmaAtt ention deficit disorder of childhood without mention of hyperactivityGenera lized anxiety disorder 2 Sumanth Palacios. [address], [place], [place], [address] , [place]. tel:[phone] Referring Provider: Vaibhav Esqueda [facility] [address], [place], [place], [address]. tel:[phone] Family History Family Member Type Diagnosis Age At Onset Father Problem (finding) Diabetes mellitus Brother Problem (finding) Hypertension Mother Problem (finding) Seizure disorder Mother Problem of unknown heart disease (Cause Of ) 62 Father Problem (finding) Hypertension Mother Problem (finding) Hypertension Payers Payer name Insurance type Covered libertarian ID Authoriza tion(s) No Information Social History Type Description Quantity Date Captured Comments Alcohol Use Details Unknown Caffeine Use Details Unknown Tobacco Use Status No Information Smoking Status No Information Sex Female Chief Complaint And Reason For Visit No Information Plan Of Treatment Date Type Action Status Goal Depression screening. Due on due Goal Pap/HPV testing. Due on due Goal Td vaccine. Due on due Goal Mammogram. Due on due Goal Influenza vaccine. Due on due Goal Tdap. Due on due Goal Lipid panel. Due on due Goal Td vaccine. Due on due Goal Pap/HPV testing. Due on due Goal Depression screening. Due on due Goal Influenza vaccine. Due on due Goal Tdap. Due on due Goal Tdap. Due on due Goal Influenza vaccine. Due on due Goal Td vaccine. Due on due Goal Pap/HPV testing. Due on due Goal Depression screening. Due on due Goal Influenza vaccine. Due on due Goal Tdap. Due on due Goal Td vaccine. Due on due Goal Pap/HPV testing. Due on due Goal Depression screening. Due on due Goal Influenza vaccine. Due on due Goal Tdap. Due on due Goal Td vaccine. Due on due Goal Pap/HPV testing. Due on due Goal Depression screening. Due on due Goal Influenza vaccine. Due on due Goal Tdap. Due on due Goal Td vaccine. Due on due Goal Pap/HPV testing. Due on due Goal Depression screening. Due on due Goal Depression screening. Due on due Goal Pap/HPV testing. Due on due Goal Td vaccine. Due on due Goal Tdap. Due on due Goal Influenza vaccine. Due on due Goal Pap/HPV testing. Due on due Goal Td vaccine. Due on due Goal Tdap. Due on due Goal Influenza vaccine. Due on due Goal Depression screening. Due on due Goal Pap/HPV testing. Due on due Goal Td vaccine. Due on due Goal Tdap. Due on due Goal Influenza vaccine. Due on due Goal Depression screening. Due on due Goal Depression screening. Due on due Goal Influenza vaccine. Due on due Goal Tdap. Due on due Goal Td vaccine. Due on due Goal Pap/HPV testing. Due on due Goal Depression screening. Due on due Goal Influenza vaccine. Due on due Goal Tdap. Due on due Goal Td vaccine. Due on due Goal Pap/HPV testing. Due on due Goal Pap/HPV testing. Due on due Goal Td vaccine. Due on due Goal Tdap. Due on due Goal Influenza vaccine. Due on due Goal Depression screening. Due on due Goal Pap/HPV testing. Due on due Goal Td vaccine. Due on due Goal Tdap. Due on due Goal Influenza vaccine. Due on due Goal Depression screening. Due on due Goal Pap/HPV testing. Due on due Goal Td vaccine. Due on due Goal Tdap. Due on due Goal Influenza vaccine. Due on due Goal Depression screening. Due on due Goal Depression screening. Due on due Goal Influenza vaccine. Due on due Goal Tdap. Due on due Goal Td vaccine. Due on due Goal Pap/HPV testing. Due on due Goal Depression screening. Due on due Goal Influenza vaccine. Due on due Goal Tdap. Due on due Goal Td vaccine. Due on due Goal Pap/HPV testing. Due on due Goal Pap/HPV testing. Due on due Goal Td vaccine. Due on due Goal Tdap. Due on due Goal Influenza vaccine. Due on Ma due Goal Depression screening. Due on due Goal Pap/HPV testing. Due on due Goal Td vaccine. Due on due Goal Tdap. Due on due Goal Influenza vaccine. Due on Ap due Goal Depression screening. Due on due Goal Depression screening. Due on due Goal Influenza vaccine. Due on due Goal Tdap. Due on due Goal Td vaccine. Due on due Goal Pap/HPV testing. Due on due Goal Pap/HPV testing. Due on due Goal Td vaccine. Due on due Goal Tdap. Due on due Goal Influenza vaccine. Due on due Goal Depression screening. Due on due Goal Pap/HPV testing. Due on due Goal Td vaccine. Due on due Goal Tdap. Due on due Goal Influenza vaccine. Due on due Goal Depression screening. Due on due Goal Pap/HPV testing. Due on due Goal Td vaccine. Due on due Goal Tdap. Due on due Goal Influenza vaccine. Due on due Goal Depression screening. Due on due Goal Pap/HPV testing. Due on due Goal Td vaccine. Due on due Goal Tdap. Due on due Goal Influenza vaccine. Due on due Goal Depression screening. Due on due Goal Special diet education compl eted Goal Pap/HPV testing. Due on due Goal Td vaccine. Due on due Goal Tdap. Due on due Goal Influenza vaccine. Due on due Goal Depression screening. Due on due Goal Depression screening. Due on due Goal Influenza vaccine. Due on due Goal Tdap. Due on due Goal Td vaccine. Due on due Goal Pap/HPV testing. Due on due Goal Special diet education compl eted Goal Pap/HPV testing. Due on due Goal Td vaccine. Due on due Goal Tdap. Due on due Goal Influenza vaccine. Due on due Goal Depression screening. Due on due Goal Special diet education compl eted Goal Depression screening. Due on due Goal Influenza vaccine. Due on due Goal Tdap. Due on due Goal Pap/HPV testing. Due on due Goal Td vaccine. Due on due Goal Special diet education compl eted Goal Depression screening. Due on due Goal Influenza vaccine. Due on due Goal Tdap. Due on due Goal Pap/HPV testing. Due on due Goal Td vaccine. Due on due Goal Special diet education compl eted Goal Td vaccine. Due on due Goal Pap/HPV testing. Due on due Goal Tdap. Due on due Goal Influenza vaccine. Due on due Goal Depression screening. Due on due Goal Special diet education compl eted Goal Depression screening. Due on due Goal Influenza vaccine. Due on due Goal Tdap. Due on due Goal Pap/HPV testing. Due on due Goal Td vaccine. Due on due Goal Special diet education compl eted Goal Depression screening. Due on due Goal Influenza vaccine. Due on due Goal Tdap. Due on due Goal Pap/HPV testing. Due on due Goal Td vaccine. Due on due Goal Special diet education compl eted Goal Depression screening. Due on due Goal Influenza vaccine. Due on due Goal Tdap. Due on due Goal Pap/HPV testing. Due on due Goal Td vaccine. Due on 19 due Goal Special diet education compl eted Goal Depression screening. Due on due Goal Influenza vaccine. Due on due Goal Tdap. Due on due Goal Pap/HPV testing. Due on due Goal Td vaccine. Due on 18 due Goal Special diet education compl eted Goal Pap/HPV testing. Due on due Goal Depression screening. Due on due Goal Td vaccine. Due on due Goal Tdap. Due on due Goal Depression screening. Due on due Goal Td vaccine. Due on due Goal Tdap. Due on due Goal Pap/HPV testing. Due on due Goal Pap/HPV testing. Due on due Goal Tdap. Due on due Goal Depression screening. Due on due Goal Td vaccine. Due on due Goal Depression screening. Due on due Goal Pap/HPV testing. Due on due Goal Td vaccine. Due on due Goal Tdap. Due on due Goal Pap/HPV testing. Due on due Goal Tdap. Due on due Goal Td vaccine. Due on due Goal Depression screening. Due on due Goal Tdap. Due on due Goal Td vaccine. Due on 17 due Goal Pap/HPV testing. Due on due Goal Depression screening. Due on due Goal Pap/HPV testing. Due on due Goal Depression screening. Due on due Goal Td vaccine. Due on due Goal Tdap. Due on due Goal Pap/HPV testing. Due on due Goal Td vaccine. Due on 16 due Goal Depression screening. Due on due Goal Tdap. Due on due Goal Pap/HPV testing. Due on due Goal Td vaccine. Due on due Goal Tdap. Due on due Goal Depression screening. Due on due Goal Td vaccine. Due on 16 due Goal Tdap. Due on due Goal Pap/HPV testing. Due on due Goal Depression screening. Due on due Goal Pap/HPV testing. Due on due Goal Td vaccine. Due on 16 due Goal Depression screening. Due on due Goal Tdap. Due on due Goal Pap/HPV testing. Due on due Goal Depression screening. Due on due Goal Td vaccine. Due on due Goal Tdap. Due on due Goal Td vaccine. Due on due Goal Pap/HPV testing. Due on due Goal Tdap. Due on due Goal Depression screening. Due on due Goal Depression screening. Due on due Goal Tdap. Due on due Goal Pap/HPV testing. Due on due Goal Td vaccine. Due on due Goal Td vaccine. Due on due Goal Depression screening. Due on due Goal Tdap. Due on due Goal Pap/HPV testing. Due on due Goal Depression screening. Due on due Goal Td vaccine. Due on due Goal Tdap. Due on due Goal Pap/HPV testing. Due on due Goal Depression screening. Due on due Goal Pap/HPV testing. Due on due Goal Td vaccine. Due on due Goal Tdap. Due on due Referral Ordered: Hematology (related to Other specified disease of blood) ordered Referral Ordered: Referrals: Hematology. Evaluate and treat ordered Referral Ordered: US EXAM, ABDOM, COMPLETE ordered Referral Ordered: SLEEP STUDY, ATTENDED ordered Referral Ordered: Physical Therapy (related to Pain in rt shoulder) ordered Referral Referred To: Physical Therapy Ordered: Referrals: Physical Therapy. Evaluate and treat ordered Referral Ordered: Pulmonology (related to Other fatigue) ordered Referral Ordered: Referrals: Pulmonology. Evaluate and treat ordered Referral Ordered: CARDIOVASCULAR STRESS TEST ordered Referral Ordered: DOPPLER ECHO EXAM, HEART ordered Referral Ordered: CHEST X-RAY ONE VIEW ordered Referral Ordered: LUMBAR XRAY AP AND LAT ONLY ordered History Of Present Illness Encounter Date Complaint History Of Prese nt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 congestion, productive coughing for one week. Pt denies any fever. Pt denies any other complaints rectal bleeding Pertinent negati ves include abdominal pain, constipation, decreased appetite, diarrhea, heartburn, nausea, vomiting and weight loss. Additional information: Pt notices bright red blood per rectum for sevearl weeks. Pt denies any constipation. Pt denies any abd pain. Pt notices bright red blood mix with stool. anxiety The patient pres ents with anxious/fearful thoughts but denies fatigue. The patient denies any headache, nausea, vomiting and weight gain. Additional information: Pt has chronic anxiety and depression. Pt takes lexapro and xanax. Pt denies any suicidal thought. HTN Pt takes losarat n and her BP is stable HLP Pt has HLP. Pt i s trying low fat and low carb diet alcohol Pt has not had a ny alcohol for 9 months, Pt is doing ok. Pt still doing AA anxiety Additional infor mation: Pt has chronic anxiety and depression. Pt takes lexapro and xanax and doing ok. PT denies any suicidal thought. Instructions Date Instruction Additional Infor mation Weight management Related to Abn ormal weight loss Increase physical activity Relat ed to Abnormal weight loss Special diet education Related t o Body mass index (BMI) 26.0-26.9, adult Special diet education Related t o Body mass index (BMI) 27.0-27.9, adult Increase activity. Related to Hy perlipidemia Follow a low sodium diet. Relate d to Hyperlipidemia Special diet education Related t o Body mass index (BMI) 29.0-29.9, adult Increase physical activity Relat ed to Liver disease Weight management Related to Yuan er disease Special diet education Related t o Body mass index (BMI) 28.0-28.9, adult Weight management Related to Abn ormal weight loss Special diet education Related t o Body mass index (BMI) 30.0-30.9, adult Increase physical activity Relat ed to Sleep apnea Weight management Related to Sle ep apnea Special diet education Related t o Body mass index (BMI) 31.0-31.9, adult Increase physical activity Relat ed to Sleep apnea Weight management Related to Sle ep apnea Special diet education Related t o Body mass index (BMI) 33.0-33.9, adult Increase physical activity Relat ed to Viral infection Weight management Related to Vir al infection Special diet education Related t o Body mass index (BMI) 33.0-33.9, adult Special diet education Related t o Body mass index (BMI) 35.0-35.9, adult Increase physical activity Relat ed to Generalized Anxiety Disorder Weight management Related to Gen eralized Anxiety Disorder Special diet education Related t o Body mass index (BMI) 35.0-35.9, adult Increase physical activity Relat ed to Encounter for general adult medical exam w abnormal findings Weight management Related to Enc ounter for general adult medical exam w abnormal findings Prescribed Activity and Exercise Education Related to Dietary Surveillance and Counseling Prescribed Diet Educ ation/Lifestyle Education Regarding Diet Related to Dietary Surveillance and Counseling Increase physical activity Relat ed to Generalized Anxiety Disorder Weight management Related to Gen eralized Anxiety Disorder Prescribed Activity and Exercise Education Related to Dietary Surveillance and Counseling Prescribed Diet Educ ation/Lifestyle Education Regarding Diet Related to Dietary Surveillance and Counseling Prescribed Diet Educ ation/Lifestyle Education Regarding Diet Related to Dietary Surveillance and Counseling Prescribed Activity and Exercise Education Related to Dietary Surveillance and Counseling Prescribed Activity and Exercise Education Related to Dietary Surveillance and Counseling Prescribed Diet Educ ation/Lifestyle Education Regarding Diet Related to Dietary Surveillance and Counseling Prescribed Activity and Exercise Education Related to Dietary Surveillance and Counseling Prescribed Diet Educ ation/Lifestyle Education Regarding Diet Related to Dietary Surveillance and Counseling Prescribed Activity and Exercise Education Related to Dietary Surveillance and Counseling Prescribed Diet Educ ation/Lifestyle Education Regarding Diet Related to Dietary Surveillance and Counseling Prescribed Activity and Exercise Education Related to Dietary Surveillance and Counseling Prescribed Diet Educ ation/Lifestyle Education Regarding Diet Related to Dietary Surveillance and Counseling Prescribed Activity and Exercise Education Related to Dietary Surveillance and Counseling Prescribed Diet Educ ation/Lifestyle Education Regarding Diet Related to Dietary Surveillance and Counseling Prescribed Activity and Exercise Education Related to Dietary Surveillance and Counseling Prescribed Diet Educ ation/Lifestyle Education Regarding Diet Related to Dietary Surveillance and Counseling Prescribed Activity and Exercise Education Related to Dietary Surveillance and Counseling Prescribed Diet Educ ation/Lifestyle Education Regarding Diet Related to Dietary Surveillance and Counseling Prescribed Activity and Exercise Education Related to Dietary Surveillance and Counseling Prescribed Diet Educ ation/Lifestyle Education Regarding Diet Related to Dietary Surveillance and Counseling Prescribed Activity and Exercise Education Related to Dietary Surveillance and Counseling Prescribed Diet Educ ation/Lifestyle Education Regarding Diet Related to Dietary Surveillance and Counseling Prescribed Activity and Exercise Education Related to Dietary Surveillance and Counseling Prescribed Diet Educ ation/Lifestyle Education Regarding Diet Related to Dietary Surveillance and Counseling Prescribed Activity and Exercise Education Related to Dietary Surveillance and Counseling Prescribed Diet Educ ation/Lifestyle Education Regarding Diet Related to Dietary Surveillance and Counseling Prescribed Activity and Exercise Education Related to Dietary Surveillance and Counseling Prescribed Diet Educ ation/Lifestyle Education Regarding Diet Related to Dietary Surveillance and Counseling Prescribed Activity and Exercise Education Related to Dietary Surveillance and Counseling Prescribed Diet Educ ation/Lifestyle Education Regarding Diet Related to Dietary Surveillance and Counseling Physical activity counseling Rel ated to Dietary surveillance counseling Decrease caloric intake Related to Dietary surveillance counseling Physical activity counseling Rel ated to Dietary surveillance counseling Decrease caloric intake Related to Dietary surveillance counseling Physical activity counseling Rel ated to Dietary surveillance counseling Decrease caloric intake Related to Dietary surveillance counseling Decrease caloric intake Related to Dietary surveillance counseling Physical activity counseling Rel ated to Dietary surveillance counseling Dietary counseling Related to Di etary surveillance counseling Decrease caloric intake Related to Dietary surveillance counseling Dietary counseling Related to Di etary surveillance counseling Decrease caloric intake Related to Dietary surveillance counseling Dietary counseling Related to Di etary surveillance counseling Decrease caloric intake Related to Dietary surveillance counseling Dietary counseling Related to Di etary surveillance counseling Decrease caloric intake Related to Dietary surveillance counseling Decrease caloric intake Related to Dietary surveillance counseling Dietary counseling Related to Di etary surveillance counseling Dietary counseling Related to Di etary surveillance counseling Decrease caloric intake Related to Dietary surveillance counseling Dietary counseling Related to Di etary surveillance counseling Decrease caloric intake Related to Dietary surveillance counseling Decrease caloric intake Related to Dietary surveillance counseling Dietary counseling Related to Di etary surveillance counseling Dietary counseling Related to Di etary surveillance counseling Decrease caloric intake Related to Dietary surveillance counseling Decrease caloric intake Related to Dietary surveillance counseling Dietary counseling Related to Di etary surveillance counseling Decrease caloric intake Related to Dietary surveillance counseling Dietary counseling Related to Di etary surveillance counseling Dietary counseling Related to Di etary surveillance counseling Decrease caloric intake Related to Dietary surveillance counseling Dietary counseling Related to Di etary surveillance counseling Decrease caloric intake Related to Dietary surveillance counseling Dietary counseling Related to Di etary surveillance counseling Decrease caloric intake Related to Dietary surveillance counseling Dietary counseling Related to Di etary surveillance counseling Decrease caloric intake Related to Dietary surveillance counseling Decrease caloric intake Related to Dietary surveillance counseling Dietary counseling Related to Di etary surveillance counseling Decrease caloric intake Related to Dietary surveillance counseling Dietary counseling Related to Di etary surveillance counseling Dietary counseling Related to Di etary surveillance counseling Decrease caloric intake Related to Dietary surveillance counseling Dietary counseling Related to Di etary surveillance counseling Decrease caloric intake Related to Dietary surveillance counseling Dietary counseling Related to Di etary surveillance counseling Decrease caloric intake Related to Dietary surveillance counseling Dietary counseling Related to Di etary surveillance counseling Decrease caloric intake Related to Dietary surveillance counseling Dietary counseling Related to Di etary surveillance counseling Decrease caloric intake Related to Dietary surveillance counseling Dietary counseling Related to Di etary surveillance counseling Decrease caloric intake Related to Dietary surveillance counseling Dietary counseling Related to Di etary surveillance counseling Decrease caloric intake Related to Dietary surveillance counseling Assessments Type Assessment Date No Information
--- OUTSIDE RECORDS SUMMARY | 2024-07-17 05:06 | XMS_ITS | CONTINUITY OF CARE DOCUMENT ---
Author Name harshad patricia Address Unknown Organization [facility] Address [address] [place] [address] Phone [phone] Care Team Providers Care Employment Director Name Role Phone Lucy SANTOYO, Micha Unavailable JANICE SANTOYO, JUSTIN Unavailable JANETTE PIERCE MD Unavailable [phone] INSURANCE PROVIDERS Payer name Policy type / Coverage type [place] [employer] party ID [id number] [id number] HEALTHCARE AND FAMILY SERVICES Medicaid [id number]
--- OUTSIDE RECORDS SUMMARY | 2024-07-17 05:06 | XMS_ITS | Data Portability ---
Author Organization [facility] [place] Address [address] [place] [address] Care Team Providers Care Box Car Loader Name Role Phone JANETTE PIERCE Primary Care Provider [phone] Assessment Encounter Date Assessment Date Assessment LastModified by Organization Details LastModified Time 02/07/2021 02/07/2021 Time spent in visit is a total of 32 mins with at least 50% of visit consisting of counseling and review of plan of care. Additional precautionary measures were taken to minimize potential exposure to the Covid-19 virus during this patient? s visit, including available hand manager review upon arrive, temperature check and being asked a series of screening questions. All staff wore face coverings during this encounter, as well as provided additional cleaning and sanitizing of all surfaces, including countertops, pens, chairs, door handles, light switches, etc, prior to and following the patient? s visit. [email or web address] Not available 02/07/2021 14:32:49 Plan of Treatment Reminders Order Date Submit Date Provider Last Modified By Organization Details Last Modified Time Details Appointments None recorded. Lab hormone panel, serum or plasma [address] [facility] (Lab), [address], [place], [address], 1 22:04:01 prolactin, serum [address] [facility] (Lab), [address], [place], [address], 1 22:04:00 TSH, serum or plasma [address] [facility] (Lab), [address], [place], [address], 1 22:03:59 CBC w/ auto diff 2020 [facility] (Lab), [address], [place], [address], 1 22:03:58 CMP, serum or plasma 2020 [facility] (Lab), [address], [place], [address], 1 22:03:59 HbA1c (hemoglobi n A1c), blood 2020 [facility] (Lab), [address], [place], [address], 1 22:04:01 testostero ne, total, serum 2020 [facility] (Lab), [address], [place], [address], 1 22:04:02 vitamin D, 25-hydroxy , total, serum 2020 [facility] (Lab), [address], [place], [address], 1 22:04:00 Referral None recorded. Procedures None recorded. Surgeries None recorded. Imaging US, pelvis, complete 2020 [place], [facility] [address], [place], [address], 2 12:12:05 Medication Orders None recorded. Patient TargetsNo targets recorded. Patient InstructionsNo instructions recorded. Reason for Referral None Reported. Results Created Date Observation Date Name Description Value Unit Range Abnormal Flag Note LastModifiedBy Organization Detail LastModifiedTime 02/08/20 21 02/07/2021 CBC W/DIF F WBC 10.4 10'3/ uL 3.6-10 .2 high Not Available [facility] (Lab) [address], [place], [address], 02/10/2021 22:03:58 02/08/20 21 02/07/2021 CBC W/DIF F RBC 4.30 10'6/ uL (based on docume nted legal sex) 4.10-5 .30 Not Available [facility] (Lab) [address], [place], [address], 02/10/2021 22:03:58 02/08/20 21 02/07/2021 CBC W/DIF F HGB 14.3 g/dL (based on docume nted legal sex) 11.9-1 5.8 Not Available [facility] (Lab) [address], [place], [address], 02/10/2021 22:03:58 02/08/20 21 02/07/2021 CBC W/DIF F HCT 43.8 % (based on docume nted legal sex) 37.4-4 8.3 Not Available [facility] (Lab) [address], [place], [address], 02/10/2021 22:03:58 02/08/20 21 02/07/2021 CBC W/DIF F MCV 103.0 fL 82.0-9 9.0 high Not Available [facility] (Lab) [address], [place], [address], 02/10/2021 22:03:58 02/08/20 21 02/07/2021 CBC W/DIF F MCH 34.0 pg 27.0-3 3.0 high Not Available [facility] (Lab) [address], [place], [address], 02/10/2021 22:03:58 02/08/20 21 02/07/2021 CBC W/DIF F MCHC 33.0 g/dL 32.0-3 6.0 Not Available [facility] (Lab) [address] [facility] [address], [place], [address], 02/10/2021 22:03:58 02/08/20 21 02/07/2021 CBC W/DIF F RDW 12.0 % 11.0-1 5.0 Not Available [facility] (Lab) [address], [place], [address], 02/10/2021 22:03:58 02/08/20 21 02/07/2021 CBC W/DIF F plt 265 10'3/ uL 150-45 0 Not Available [facility] (Lab) [address], [place], [address], 02/10/2021 22:03:58 02/08/20 21 02/07/2021 CBC W/DIF F MPV 10.6 fL 9.8-12 .7 Not Available [facility] (Lab) [address], [place], [address], 02/10/2021 22:03:58 02/08/20 21 02/07/2021 CBC W/DIF F NRBC's 0.00 % 0 Not Available [facility] (Lab) [address], [place], [address], 02/10/2021 22:03:58 02/08/20 21 02/07/2021 CBC W/DIF F absolute NRBCs 0.0 10'3/ uL 0 Not Available [facility] (Lab) [address], [place], [address], 02/10/2021 22:03:58 02/08/20 21 02/07/2021 CBC W/DIF F neutrophils 74.0 % 37.0-7 2.0 high Not Available [facility] (Lab) [address], [place], [address], 02/10/2021 22:03:58 02/08/20 21 02/07/2021 CBC W/DIF F lymphocytes 16.0 % 16.0-4 8.0 Not Available [facility] (Lab) [address], [place], [address], 02/10/2021 22:03:58 02/08/20 21 02/07/2021 CBC W/DIF F monocytes 7.0 % 4.0-14 .0 Not Available [facility] (Lab) [address], [place], [address], 02/10/2021 22:03:58 02/08/20 21 02/07/2021 CBC W/DIF F eosinophils 2.0 % 0.0-9. 0 Not Available [facility] (Lab) [address], [place], [address], 02/10/2021 22:03:58 02/08/20 21 02/07/2021 CBC W/DIF F basophils 1.0 % 0.0-2. 0 Not Available [facility] (Lab) [address] [facility] [address], [place], [address], 02/10/2021 22:03:58 02/08/20 21 02/07/2021 CBC W/DIF F immature granulocytes 0.0 % no define d refere nce range Not Available [facility] (Lab) [address], [place], [address], 02/10/2021 22:03:58 02/08/20 21 02/07/2021 CBC W/DIF F absolute neutrophils 7.7 10'3/ uL 1.1-6. 0 high Not Available [facility] (Lab) [address] [facility] [address], [place], [address], 02/10/2021 22:03:58 02/08/20 21 02/07/2021 CBC W/DIF F absolute lymphocytes 1.7 10'3/ uL 0.7-3. 4 Not Available [facility] (Lab) [address], [place], [address], 02/10/2021 22:03:58 02/08/20 21 02/07/2021 CBC W/DIF F absolute monocytes 0.7 10'3/ uL 0.3-1. 0 Not Available [facility] (Lab) [address], [place], [address], 02/10/2021 22:03:58 02/08/20 21 02/07/2021 CBC W/DIF F absolute eosinophils 0.3 10'3/ uL 0.0-0. 6 Not Available [facility] (Lab) [address], [place], [address], 02/10/2021 22:03:58 02/08/20 21 02/07/2021 CBC W/DIF F absolute basophils 0.1 10'3/ uL 0.0-0. 1 Not Available [facility] (Lab) [address], [place], [address], 02/10/2021 22:03:58 02/08/20 21 02/07/2021 CBC W/DIF F absolute immature granulocytes 0.00 10'3/ uL 0.00-0 .10 2020 1:04 AM: P indic ates parti al resul ts on a panel have been relea sed. Addit ional resul ts will follo w. 2020 1:04 AM: This resul t has been final verif ied. No addit ional or zuleta ed resul ts are expec jordan. Not Available [facility] (Lab) [address], [place], [address], 02/10/2021 22:03:58 02/08/20 21 02/07/2021 CMP WITH BUN/C REAT RATIO sodium 136 mmol/ L 136-14 5 Not Available [facility] (Lab) [address], [place], [address], 02/10/2021 22:03:59 02/08/20 21 02/07/2021 CMP WITH BUN/C REAT RATIO potassium 3.9 mmol/ L 3.5-5. 1 Not Available [facility] (Lab) [address] [facility] [address], [place], [address], 02/10/2021 22:03:59 02/08/20 21 02/07/2021 CMP WITH BUN/C REAT RATIO chloride 102 mmol/ L 98-107 Not Available [facility] (Lab) [address], [place], [address], 02/10/2021 22:03:59 02/08/20 21 02/07/2021 CMP WITH BUN/C REAT RATIO carbon dioxide 28 mmol/ L 21-31 Not Available [facility] (Lab) [address], [place], [address], 02/10/2021 22:03:59 02/08/20 21 02/07/2021 CMP WITH BUN/C REAT RATIO anion gap 6 mmol/ L 4-13 Not Available [facility] (Lab) [address], [place], [address], 02/10/2021 22:03:59 02/08/20 21 02/07/2021 CMP WITH BUN/C REAT RATIO blood urea nitrogen 10 mg/dL 7-25 Not Available [facility] (Lab) [address], [place], [address], 02/10/2021 22:03:59 02/08/20 21 02/07/2021 CMP WITH BUN/C REAT RATIO creatinine 0.70 mg/dL 0.60-1 .30 Not Available [facility] (Lab) [address], [place], [address], 02/10/2021 22:03:59 02/08/20 21 02/07/2021 CMP WITH BUN/C REAT RATIO BUN/creatini ne ratio 14.3 . 10.0-2 2.0 Not Available [facility] (Lab) [address], [place], [address], 02/10/2021 22:03:59 02/08/20 21 02/07/2021 CMP WITH BUN/C REAT RATIO GFR () 113 mL/mi n/1.7 3_m2 60-300 Not Available [facility] (Lab) [address], [place], [address], 02/10/2021 22:03:59 02/08/20 21 02/07/2021 CMP WITH BUN/C REAT RATIO GFR (others) 93 mL/mi n/1.7 3_m2 60-300 Not Available [facility] (Lab) [address], [place], [address], 02/10/2021 22:03:59 02/08/20 21 02/07/2021 CMP WITH BUN/C REAT RATIO calcium 9.5 mg/dL 8.6-10 .2 Not Available [facility] (Lab) [address], [place], [address], 02/10/2021 22:03:59 02/08/20 21 02/07/2021 CMP WITH BUN/C REAT RATIO glucose 83 mg/dL 70-100 Not Available [facility] (Lab) [address], [place], [address], 02/10/2021 22:03:59 02/08/20 21 02/07/2021 CMP WITH BUN/C REAT RATIO protein, total 6.7 g/dL 6.4-8. 3 Not Available [facility] (Lab) [address], [place], [address], 02/10/2021 22:03:59 02/08/20 21 02/07/2021 CMP WITH BUN/C REAT RATIO albumin 4.0 g/dL 3.5-5. 0 Not Available [facility] (Lab) [address], [place], [address], 02/10/2021 22:03:59 02/08/20 21 02/07/2021 CMP WITH BUN/C REAT RATIO ALT 17 units /L 9-43 Not Available [facility] (Lab) [address], [place], [address], 02/10/2021 22:03:59 02/08/20 21 02/07/2021 CMP WITH BUN/C REAT RATIO alkaline phosphatase 50 units /L 34-104 Not Available [facility] (Lab) [address] [facility] [address], [place], [address], 02/10/2021 22:03:59 02/08/20 21 02/07/2021 CMP WITH BUN/C REAT RATIO AST 15 units /L 13-39 Not Available [facility] (Lab) [address], [place], [address], 02/10/2021 22:03:59 02/08/20 21 02/07/2021 CMP WITH BUN/C REAT RATIO bilirubin, total 0.3 mg/dL 0.2-1. 2 GFR([place] f[place] n Ameri can) is repor jordan as 21% great er than GFR(O ther) . The use of race in kidne y funct ion estim ating equat ions is no longe r recom tristen d and may resul t in overe stima tion. In the near futur e an appro ach that disre gards race will be imple mente d. Not Available [facility] (Lab) [address], [place], [address], 02/10/2021 22:03:59 02/08/20 21 02/07/2021 TSH, REFLE X FREE T4 TSH 1.47 uIU/m L 0.30-5 .33 Not Available [facility] (Lab) [address], [place], [address], 02/10/2021 22:03:59 02/08/20 21 02/07/2021 VITAM IN D, 25-OH (TOTA L D2/D3 ) vitamin D, 25-hydroxy, total 44.1 NG/mL 30-80 NOTE: Defic iency : <20 ng/mL Insuf ficie ncy: 20-29 ng/mL Optim um Level : 30-80 ng/mL Possi ble Toxic ity: >80 ng/mL Most patie nts with toxic ity have level s >150 ng/mL . Not Available [facility] (Lab) [address], [place], [address], 02/10/2021 22:04:00 02/08/20 21 02/07/2021 PROLA CTIN prolactin, total 15.00 NG/mL 4.79-2 3.30 This assay was perfo rmed using [employer] ratio n reage nts and test kits. Value s obtai jac with other assay metho ds or kits canno t be used inter [facility] . Not Available [facility] (Lab) [address], [place], [address], 02/10/2021 22:04:00 02/08/20 21 02/07/2021 FSH, LH, ESTRA DIOL estradiol 44.8 pg/mL This assay was perfo rmed using [employer] reage nts and test kits. Value s obtai jac with other assay metho ds or kits canno t be used inter [facility] . Femal e Estra diol Range s: Folli cular phase 12.4- 233 pg/mL Ovula tion phase 41.0- 398 pg/mL Lutea l phase 22.3- 341 pg/mL Postm enopa usal< 5-138 pg/mL Healt hy Pregn ant Women 1st Trime ster1 54-32 43 pg/mL 2nd Trime ster1 561-2 1280 pg/mL 3rd Trime ster8 525-> 68105 pg/mL Not Available [facility] (Lab) [address], [place], [address], 02/10/2021 22:04:01 02/08/20 21 02/07/2021 FSH, LH, ESTRA DIOL FSH 9.3 mIU/m L This assay was perfo rmed using [employer] reage nts and test kits. Value s obtai jac with other assay metho ds or kits canno t be used [facility] . Femal es Folli cular : 3.5-1 2.5 mIU/m L Ovula tion: 4.7-2 1.5 mIU/m L Lutea l: 1.7-7 .7 mIU/m L Postm enopa use: 25.8- 134.8 mIU/m L Not Available [facility] (Lab) [address], [place], [address], 02/10/2021 22:04:01 02/08/20 21 02/07/2021 FSH, LH, ESTRA DIOL LH 6.6 mIU/m L This assay was perfo rmed using [employer] reage nts and test kits. Value s obtai jac with other assay metho ds or kits canno t be used inter [facility] . Femal es Mid-F ollic ular: 2.4-1 2.6 mIU/m L Mid-C ycle: 14.0- 95.6 mIU/m L Mid-L uteal : 1.0-1 1.4 mIU/m L Postm enopa use: 7.7-5 8.5 mIU/m L Not Available [facility] (Lab) [address], [place], [address], 02/10/2021 22:04:01 02/08/20 21 02/07/2021 HEMOG LOBIN A1C hemoglobin A1C 5.2 % 0-5.6 The Ameri can [employer] bowen [employer] iatio n recom mends that a prima ry goal of thera py tamiko yu be a HBA1C of < 7% and that physi cians shoul d reeva luate the treat ment regim en in patie nts with HBA1C value s consi stent ly > 8%. <5.7% Flaquita l 5.7 - 6.4% Incre ased risk for diabe bowen >=6.5 % Diagn ostic of diabe bowen <7.0% Goal of thera py >8.0% Actio n sugge sted Not Available [facility] (Lab) [address], [place], [address], 02/10/2021 22:04:01 02/08/20 21 02/07/2021 TESTO STERO NE, TOTAL , LC/MS /MS testosterone , total 25 NG/dL 2-45 For addit ional infor twan peterson e refer to http: //[facility] julián mullinsque stdia gnost ics.c om/fa q/Tot al Testo stero neLCM SMS (This link is being provi ded for infor scoutjeffrey nal/e ducat ional purpo ses only. ) This test was devel oped and its marycarmen tical perfo rmanc e stephen cteri stics have been deter mined by [employer]. It has not been clear ed or appro luis eduardo by the FDA. This assay has been valid ated pursu ant to the CLIA regul ation s and is used for clini jaguar purpo ses. Perfo rming Organ izati on Em butterfieldjeffrey mata: Site ID: [id number] Name: [employer]-Mani allen Nunez joyce Addre ss: [id number] [place] [address] Dire tor: Trent yi M.D. Not Available [facility] (Lab) [address], [place], [address], 02/10/2021 22:04:01 Result Notes None recorded. Procedures Surgical History Date Name Laterality Status Provider Name and Address Organization Details Recorded Time 9 section [facility] [place]07/[facility]21 14:12:04 Imaging Results None recorded. Procedure Notes None recorded. Medical Equipment None Reported. Allergies No known drug allergies Medications Name Sig Start Date Stop Date Status Note LastModified by Organization Details LastModified Time trazodone 50 mg tablet TAKE 1 TABLET BY MOUTH AT BEDTIME WITH FOOD active Not Available Not Available No t Available alprazolam 1 mg tablet TAKE 1 TABLET BY MOUTH TWICE DAILY NEEDED active Not Available Not Available No t Available naltrexone 50 mg tablet TAKE 1 TABLET BY MOUTH ONCE DAILY WITH FOOD OR MILK TO DECREASE GI UPSET active Not Available Not Available No t Available famotidine 40 mg tablet TAKE 1 TABLET BY MOUTH EVERY DAY active Not Available Not Available No t Available metronidazo le 500 mg tablet TAKE 1 TABLET BY MOUTH EVERY 8 HOURS FOR 7 DAYS 03/07 completed Not Available Not Available Not Available phentermine 37.5 mg tablet TAKE 1 TABLET BY MOUTH EVERY DAY BEFORE BREAKFAST active Not Available Not Available No t Available doxycycline monohydrate 100 mg capsule TAKE 1 CAPSULE BY MOUTH TWICE DAILY active Not Available Not Available No t Available divalproex ER 500 mg tablet,exte nded release 24 hr TAKE 1 TABLET BY MOUTH TWICE A DAY active Not Available Not Available No t Available hydroxyzine HCl 25 mg tablet TAKE 1 TABLET BY MOUTH EVERY 8 HOURS NEEDED active Not Available Not Available No t Available levofloxaci n 500 mg tablet TAKE 1 TABLET BY MOUTH DAILY FOR 6 DAYS 03/07 completed Not Available Not Available Not Available ondansetron 4 mg disintegrat ing tablet DISSOLVE ONE TABLET BY MOUTH THREE TIMES DAILY NEEDED FORNAUSEA AND VOMITING active Not Available Not Available No t Available fluoxetine 20 mg capsule TAKE 2 CAPSULES BY MOUTH EVERY DAY IN THE MORNING active Not Available Not Available No t Available spironolact one 50 mg tablet TAKE 1 TABLET BY MOUTH EVERY DAY active Not Available Not Available No t Available acamprosate 333 mg tablet,brea yed release TAKE 2 TABLETS BY MOUTH THREE TIMES DAILY active Not Available Not Available No t Available hydroxyzine HCl active Not Available Not Available Not Available Prozac 03/07 completed Not Available Not Available Not Available trazodone 03/07 completed Not Available Not Available Not Available ID NOW COVID-19 Test Kit TEST DIRECTED active Not Available Not Available No t Available Vitals Date Recorded Body height Body mass index (BMI) Body weight Provider Name and Address Organization Details Last Updated DateTime 02/07/2021 155.58 cm 31.9 kg/m2 30501.7 g Brittany Gonzalez [facility] 02/07/2021 14:07:40 Date Recorded Systolic blood pressure Diastolic blood pressure Provider Name and Address Organization Details Last Updated DateTime 02/07/2021 124 mm[Hg] 80 mm[Hg] Amanda Falcon, [facility]- [address], [place], [address], [facility] 02/07/2021 14:16:57 Social History Question Answer Notes LastModified by Organizat ion Details LastModified Time Tobacco Smoking Status Never Smoker Brittany Gonzalez [facility], [facility] 02/07/2021 14:11:38 What Is Your Level Of Alcohol Consumption? None Information not available 02/07/2021 Are You Blind Or Do You Have Difficulty Seeing? No Information not available 02/07/2021 What Is Your Level Of Caffeine Consumption? Occasional Information not available 02/07/2021 Are You Deaf Or Do You Have Serious Difficulty Hearing? No Information not available 02/07/2021 What Type Of Diet Are You Following? REGULAR Information not available 02/07/2021 Do You Use Your Seat Belt Or Car Seat Routinely? Yes Information not available 02/07/2021 Do You Have Smoke And Carbon Monoxide Detectors In Your Home? Yes Information not available 02/07/2021 Do You Feel Stressed (tense, Restless, Nervous, Or Anxious, Or Unable To Sleep At Night)? [id number] Information not available 02/07/2021 Do You Use Any Illicit Or Recreational Drugs? No Information not available 02/07/2021 Do You Use Sunscreen Routinely? Yes Information not available 02/07/2021 Sex: Unknown Functional Status Question Answer Note LastModified by Organizat ion Details LastModified Time Are you able to walk? YESWOREST Information not available 02/07/2021 What is your exercise level? Occasional Information not available 02/07/2021 Mental Status None recorded. Family History Relationship Description Onset Age of this Age Resolved Age Notes LastModified by Organization Details LastModified Time Mother Heart disease Not available 2020 14:10:19 Mother Diabetes mellitus Not available 2020 14:10:25 Mother Hypercholest erolemia Not available 2020 14:10:34 Mother Hypertensive disorder Not available 2020 14:10:40 Mother Seizure disorder Not available 2020 14:11:08 Father Diabetes mellitus Not available 2020 14:10:47 Father Hypercholest erolemia Not available 2020 14:10:52 Father Hypertensive disorder Not available 2020 14:10:55 Maternal Uncle Malignant tumor of lung Not available 2020 14:11:16 Medical History Condition Response Anxiety Disorder Y Depression/ depression Y Gynecological History Statement/Question Response Abnormal Pap N Date of Last Mammogram Flow Light Date of LMP 02/07/2021 Was last menstrual period normal N STIs/STDs N HPV Vaccine N Duration of Flow (days) 3 9 Current Control Method None Are cycles usually normal Y Frequency of Cycle (Q days) 32 Sexually Active? N Menses Monthly Y Date of Last Pap Smear Sexual Problems? N Desired Control Method None LMP Definite Obstetrics History GPAL:G 1 P 0 0 0 0 Past Encounters Encounter ID Performer Location Encounter Start Date Encounter Closed Date Diagnosis/Indication Diagnosis SNOMED-CT Code Diagnosis ICD10 Code Diagnosis Note [id number] Amanda Falcon , [facility] [address] [address] 02/07/2021 13:51:48 02/07/2021 14:38:38 Menopausal symptom 04837276 N95.1 Today we decided to update labs to ensure no other issues.David vincent schedule WWE & f/u to discuss options for HRT/Non-HR T menopause sx's as long as results indicate this is the issue for her sx's. WWE with f/u to be scheduled. Rec book: The menopause manifesto by Dr. Zandra Salazar Irregular periods [id number] N92.6 LIkely cycle changes are perimenopa use/menopa use.Howeve r, we will update US to ensure no other issues since this is a change from her historical ly normal cycle. Health Concerns Section Related Observation LastModified by Organization Detai ls LastModified Time None Recorded Concern Status LastModified by Organization Details LastModified Time None Recorded Advance Directives Directive None Recorded Payers Encounter Date Sequence Insurance Name Policy Number Policy Marquez Covered Member ID Marquez Member ID Guarantor Name 02/07/2021 1 [facility] (MEDICAID HMO) [id number] Shruthi Evans [id number] Shruthi Evans Notes Date Note Type Note Provider Name and Address Organization Details Recorded Time 1 text/html MenopauseReported bypatient.Onset/Timing :1-6 months Quality:night sweats; sleep issues; hot flashes 1-3 times/day; affects quality of life Severity:mild Duration:brief Alleviating Factors:eliminating alcohol Aggravating Factors:caffeine; alcohol; Lots of tea. Gave up alcohol. Associated Symptoms:no abdominal pain; no pelvic pain; no abnormal bleeding; no vaginal discharge; no dysuria; no dispareunia; no changes in bowel function; no fever; no vaginal dryness; no irritability; no depression; no skin changes; no loss of libido; no changes in urination;anxiety(Take s Trazadone for sleep Prozac for anxiety) Amanda Falcon, KATH[facility]- [address], [place], [address], [facility] 02/07/2021 14:37:56 OBGyn Episode Ob Episode Information Episode Created Date Number of Fetuses Patient Bloodtype Patient rh Status Prepregnancy Weight lbs Domestic Partner Domestic Partner Phone Father Name Travel Guide Status 02/08/20 21 1 CLOSED Fetus Data First Name Last Name Admitted to NICU Weight (g) Sex Living Outcome Pediatric Complications Fetus ID Race Codes Race Delivery Type 3316.66 4704 M Full Term [id number] Primary Omid Calculation Initial Omid Date Initial Exam Date Initial Exam Provider Initial Ultrasound Date Last Menstrual Period Date Ultra Sound Weeks Gestation 0 Eighteen To Twenty Week Omid Update Ultra Sound Date Fundal Height At [place]mb[place] Quickening Date Ultra Sound Latest Weeks Gestation Final Omid Confirmed By Final Omid Confirmed Date Final Omid Date Ultra Sound Latest Days Gestation 0 0 Menstrual History Last Menstrual Date Menses Monthly On Bcp Conception Prior Menses Frequency Hcg Plus Date Menarche Onset Age Delivery Information Delivery Date Delivery Type Labor Anesthesia Weeks Gestation Incision Type Labor Labor Length Hrs Delivered By Post Complications Tubal Sterilization Discharge Date Comments 9 Discharge Information Feeding Method Contraceptive Method Maternal HG B and HCT Levels
--- OUTSIDE RECORDS SUMMARY | 2024-07-17 05:41 | XMS_ITS | Continuity of Care Document ---
Author Organization [facility] Address [address] [place] [address] [place] [address] Phone Care Team Providers Care Char House Supervisor Name Role Phone Philip uJlio MD Unavailable Unavailable Allergies, Adverse Reactions, Alerts [...] Diagnoses Date Provider Providers Copied on Encounter [facility], [address] [place], [address], tel:[phone] [facility] No Information 2 Sumanth Palacios. [address], [place], [place], [address] , [place]. tel:[phone] PREV VISIT, EST, AGE 18-39 [facility], [address], [place], [place], [address], [place] tel:[phone] [facility] physical (chief complaint) Encounter for general adult medical examination without abnormal findings 2 Sumanth Palacios. [address], [place], [place], [address] , [place]. tel:[phone] OFFICE/OUTPA TIENT VISIT, EST [facility], [address], [address], [place] tel:[phone] [facility] alcohol1 (chief complaint) weight gain1 (chief complaint) HCT (chief complaint) HLP (chief complaint) Generalized Anxiety DisorderAlcohol dependence, in remissionHyperlipid emiaSecondary polycythemiaAbnorma l weight gain 1 Sumanth Palacios. [address], [place], [place], [address] , [place]. tel:[phone] OFFICE/OUTPA TIENT VISIT, [facility], [address], [place], [place], [address], [place] tel:[phone] [facility] Alcohol1 (chief complaint) anxitey1 (chief complaint) GERD1 (chief complaint) Alcohol dependence with intoxication, unspecifiedGenerali zed Anxiety DisorderGastritis, unspecified, without bleeding 1 Sumanth Palacios. [address], [place], [place], [address] , [place]. tel:[phone] OFFICE/OUTPA TIENT VISIT, [facility], [address], [place], [place], [address], [place] tel:[phone] [facility] GERD w/o esophagitisAlcohol dependence, in remissionGeneralize d Anxiety Disorder 1 Sumanth Palacios. [address], [place], [place], [address] , [place]. tel:[phone] [facility], [address], [place], [place], [address], [place] tel:[phone] [facility] anxiety1 (chief complaint) alcohol1 (chief complaint) GERD1 (chief complaint) Generalized Anxiety DisorderAlcohol dependence, in remissionGERD w/o esophagitis 1 Sumanth Palacios. [address], [place], [place], [address] , [place]. tel:[phone] OFFICE/OUTPA TIENT VISIT, [facility], [address], [place], [place], [address], [place] tel:[phone] [facility] anxiety1 (chief complaint) alcohol1 (chief complaint) hirsutism1 (chief complaint) hyponaremi a1 (chief complaint) weight gain1 (chief complaint) HirsutismGeneralize d Anxiety DisorderAlcohol dependence, in remissionAbnormal weight gainHyponatremia 1 Sumanth Palacios. [address], [place], [place], [address] , [place]. tel:[phone] OFFICE/OUTPA TIENT VISIT, [facility], [address], [place], [place], [address], [place] tel:[phone] [facility] alcohol1 (chief complaint) anxiety1 (chief complaint) hirsutism1 (chief complaint) hyponatrem ia1 (chief complaint) HirsutismGeneralize d Anxiety DisorderAlcohol dependence, in remissionHyponatrem ia 1 Sumanth Lin [address], [place], [place], [address] , [place]. tel:[phone] Referring Provider: Vaibhav Esqueda [address], [place], [place], [address]. tel:[phone] OFFICE/OUTPA TIENT VISIT, [facility], [address] [place] [address] [address], [place], [place], [address], [place] tel:[phone] [facility] anxiety1 (chief complaint) hirsutism1 (chief complaint) insomnia1 (chief complaint) HirsutismGeneralize d Anxiety DisorderInsomnia 0 Sumanth Lin [address], [place], [place], [address] , [place]. tel:[phone] Referring Provider: Vaibhav Esqueda [address], [place], [place], [address]. tel:[phone] OFFICE/OUTPA TIENT VISIT, [facility], [address], [place], [place], [address], [place] tel:[phone] [facility] anxiety1 (chief complaint) weight (chief complaint) Abnormal weight gainGeneralized Anxiety Disorder 0 Sumanth Lin [address], [place], [place], [address] , [place]. tel:[phone] Referring Provider: Vaibhav Esqueda [address], [place], [place], [address]. tel:[phone] OFFICE/OUTPA TIENT VISIT, [facility], [address], [place], [place], [address], [place] tel:[phone] [facility] anxiety1 (chief complaint) weight gain1 (chief complaint) Generalized Anxiety DisorderAbnormal weight gain 0 Sumanth Palacios. [address], [place], [place], [address] , [place]. tel:[phone] Referring Provider: Philip Julio, [address], [place], [place], [address]. tel:[phone] OFFICE/OUTPA TIENT VISIT, [facility], [address], [place], [place], [address], [place] tel:[phone] [facility] HLP (chief complaint) hCT (chief complaint) glucose1 (chief complaint) anxiety1 (chief complaint) weight gain1 (chief complaint) HyperlipidemiaHyper glycemiaSecondary polycythemiaGeneral ized Anxiety DisorderAbnormal weight gain Feb- 0 Sumanth Palacios. [address], [place], [place], [address] , [place]. tel:[phone] Referring Provider: Philip Julio [address], [place], [place], [address]. tel:[phone] OFFICE/OUTPA TIENT VISIT, [facility], [address], [place], [place], [address], [place] tel:[phone] [facility] anxiety1 (chief complaint) HTN (chief complaint) Generalized Anxiety DisorderAbnormal weight lossHirsutism Jan- 0 Sumanth Palacios. [address], [place], [place], [address] , [place]. tel:[phone] Referring Provider: Philip Julio [address], [place], [place], [address]. tel:[phone] OFFICE/OUTPA TIENT VISIT, [facility], [address], [place], [place], [address], [place] tel:[phone] [facility] anxiety1 (chief complaint) weight loss1 (chief complaint) Generalized Anxiety DisorderAbnormal weight loss 0 0 Sumanth Palacios. [address], [place], [place], [address] , [place]. tel:[phone] Referring Provider: Philip Julio, [address], [place], [place], [address]. tel:[phone] OFFICE/OUTPA TIENT VISIT, [facility], [address], [place], [place], [address], [place] tel:[phone] [facility] work excuse1 (chief complaint) Fatigue 0 Sumanth Palacios. [address], [place], [place], [address] , [place]. tel:[phone] Referring Provider: Philip Julio, [address], [place], [place], [address]. tel:[phone] OFFICE/OUTPA TIENT VISIT, [facility], [address], [place], [place], [address], [place] tel:[phone] [facility] anxiety1 (chief complaint) weight1 (chief complaint) Abnormal weight gainGeneralized Anxiety Disorder 0 Sumanth Palacios. [address], [place], [place], [address] , [place]. tel:[phone] Referring Provider: Vaibhav Esqueda [address], [place], [place], [address]. tel:[phone] OFFICE/OUTPA TIENT VISIT, [facility], [address], [place], [place], [address], [place] tel:[phone] [facility] HLP (chief complaint) anxiety1 (chief complaint) Generalized Anxiety DisorderHyperlipide caitlyn 0 0 Sumanth Palacios. [address], [place], [place], [address] , [place]. tel:[phone] Referring Provider: Philip Julio [address], [place], [place], [address]. tel:[phone] OFFICE/OUTPA TIENT VISIT, EST [facility], [address], [place], [place], [address], [place] tel:[phone] [facility] anxiety1 (chief complaint) weight gain1 (chief complaint) Abnormal weight gainGeneralized Anxiety Disorder Apr-2 0 Sumanth Palacios. [address], [place], [place], [address] , [place]. tel:[phone] Referring Provider: Philip Julio [address], [place], [place], [address]. tel:[phone] OFFICE/OUTPA TIENT VISIT, [facility], [address], [place], [place], [address], [place] tel:[phone] [facility] anxiety1 (chief complaint) hand numbness1 (chief complaint) Paresthesia of skinGeneralized Anxiety Disorder Aug- 0 Sumanth Palacios. [address], [place], [place], [address] , [place]. tel:[phone] Referring Provider: Vaibhav Esqueda [address], [place], [place], [address]. tel:[phone] OFFICE/OUTPA TIENT VISIT, [facility], [address], [place], [place], [address], [place] tel:[phone] [facility] tingling1 (chief complaint) weight loss1 (chief complaint) anxiety1 (chief complaint) Other muscle spasmParesthesia of skinGeneralized Anxiety DisorderAbnormal weight loss Fe- 0- 0 Sumanth Palacios. [address], [place], [place], [address] , [place]. tel:[phone] Referring Provider: Vaibhav Esqueda [address], [place], [place], [address]. tel:[phone] PREV VISIT, EST, AGE [age] [facility], [address], [place], [place], [address], [place] tel:[phone] [facility] Physical (chief complaint) Encntr for general adult medical exam w/o abnormal findings 0 0 Sumanth Palacios. [address], [place], [place], [address] , [place]. [phone] Referring Provider: Vaibhav Esqueda [address], [place], [place], [address]. tel:[phone] OFFICE/OUTPA TIENT VISIT, [facility], [address], [place], [place], [address], [place] tel:[phone] [facility] anxiety1 (chief complaint) weight1 (chief complaint) Abnormal weight gainGeneralized Anxiety Disorder 9 Sumanth Palacios. [address], [place], [place], [address] , [place]. [phone] Referring Provider: Vaibhav Esqueda [address], [place], [place], [address]. tel:[phone] OFFICE/OUTPA TIENT VISIT, [facility], [address], [place], [place], [address], [place] tel:[phone] [facility] weight loss1 (chief complaint) anxiety1 (chief complaint) Abnormal weight lossGeneralized Anxiety Disorder 9 Sumanth Lin [address], [place], [place], [address] , [place]. [phone] Referring Provider: Vaibhav Esqueda [address], [place], [place], [address]. tel:[phone] OFFICE/OUTPA TIENT VISIT, [facility], [address], [place], [address], [place] tel:[phone] [facility] weight loss1 (chief complaint) anxiety1 (chief complaint) Generalized Anxiety DisorderAbnormal weight loss 9 Sumanth Palacios. [address], [place], [place], [address] , [place]. [phone] Referring Provider: Vaibhav Esqueda [address], [place], [place], [address]. tel:[phone] OFFICE/OUTPA TIENT VISIT, [facility], [address], [place], [place], [address], [place] tel:[phone] [facility] fatty liver1 (chief complaint) HLP (chief complaint) MCV (chief complaint) weight loss1 (chief complaint) anxiety1 (chief complaint) HyperlipidemiaAbnor mal weight lossGeneralized Anxiety DisorderFatty liverOther specified disease of bloodHyperglycemia 0 9 Sumanth Palacios. [address], [place], [place], [address] , [place]. tel:[phone] Referring Provider: Vaibhav Esqueda [address], [place], [place], [address]. tel:[phone] OFFICE/OUTPA TIENT VISIT, [facility], [address], [place], [place], [address], [place] tel:[phone] [facility] anxiety1 (chief complaint) LFT (chief complaint) obesity1 (chief complaint) HLP (chief complaint) sleep apnea1 (chief complaint) Liver diseaseHyperlipidem iaSleep apneaGeneralized Anxiety DisorderAbnormal weight gain 9 Sumanth Palacios. [address], [place], [place], [address] , [place]. tel:[phone] Referring Provider: Vaibhav Esqueda [address], [place], [place], [address]. tel:[phone] OFFICE/OUTPA TIENT VISIT, [facility], [address], [place], [place], [address], [place] tel:[phone] [facility] HTN (chief complaint) anxiety1 (chief complaint) LFT (chief complaint) Abnormal weight lossLiver diseaseGeneralized Anxiety Disorder 9 Sumanth Palacios. [address], [place], [place], [address] , [place]. tel:[phone] Referring Provider: Vaibhav Esqueda [address], [place], [place], [address]. tel:[phone] OFFICE/OUTPA TIENT VISIT, [facility], [address], [place], [place], [address], [place] tel:[phone] [facility] weight1 (chief complaint) anxiety1 (chief complaint) lFt (chief complaint) sleep apnea1 (chief complaint) Sleep apneaLiver diseaseGeneralized Anxiety DisorderSecondary polycythemiaHyperli pidemiaAbnormal weight gain 9 Sumanth Palacios. [address], [place], [place], [address] , [place]. tel:[phone] Referring Provider: Vaibhav Esqueda [facility] A, [place], [place], [address]. tel:[phone] OFFICE/OUTPA TIENT VISIT, [facility], [address], [place], [place], [address], [place] tel:[phone] [facility] anxiety1 (chief complaint) weight1 (chief complaint) sleep apnea1 (chief complaint) liver1 (chief complaint) Abnormal weight gainLiver diseaseGeneralized Anxiety DisorderSleep apnea 9 Sumanth Palacios. [address], [place], [place], [address] , [place]. tel:[phone] Referring Provider: Vaibhav Esqueda [address], [place], [place], [address]. tel:[phone] OFFICE/OUTPA TIENT VISIT, [facility], [address], [place], [place], [address], [place] tel:[phone] [facility] HLP (chief complaint) LFT (chief complaint) polycythem ia1 (chief complaint) glucose1 (chief complaint) anxiety1 (chief complaint) HyperlipidemiaLiver diseaseHyperglycemi aSecondary polycythemiaGeneral ized Anxiety DisorderAbnormal weight gain 9 Sumanth Lin [address], [place], [place], [address] , [place]. tel:[phone] Referring Provider: Vaibhav Esqueda [address], [place], [place], [address]. tel:[phone] OFFICE/OUTPA TIENT VISIT, EST [facility], [address], [place], [place], [address], [place] tel:[phone] [facility] GI (chief complaint) Viral infection 9 Sumanth Palacios. [address], [place], [place], [address] , [place]. tel:[phone] Referring Provider: Philip Julio, [address], [place], [place], [address]. tel:[phone] OFFICE/OUTPA TIENT VISIT, [facility], [facility] [address], [place], [place], [address], [place] tel:[phone] [facility] weight gain1 (chief complaint) anxiety1 (chief complaint) cough1 (chief complaint) insomnia1 (chief complaint) Acute bronchitisInsomniaG eneralized Anxiety DisorderAbnormal weight gainEssential (primary) hypertension 9 Sumanth Palacios. [address], [place], [place], [address] , [place]. tel:[phone] Referring Provider: Vaibhav Esqueda [address], [place], [place], [address]. tel:[phone] PREV VISIT, EST, AGE [age] [facility], [address], [place], [place], [address], [place] tel:[phone] [facility] Physical (chief complaint) Encounter for general adult medical exam w abnormal findingsAbnormal weight gainGeneralized Anxiety DisorderOccult blood in fecesEssential (primary) hypertension 8 Sumanth Palacios. [address], [place], [place], [address] , [place]. tel:[phone] Referring Provider: Vaibhav Esqueda [address], [place], [place], [address]. tel:[phone] OFFICE/OUTPA TIENT VISIT, [facility], [address], [place], [place], [address], [place] tel:[phone] [facility] insomnia1 (chief complaint) anxiety1 (chief complaint) sob1 (chief complaint) Generalized Anxiety DisorderAsthmaInsom niaSleep disorder, unspecified 0 7 Sumanth Palacios. [address], [place], [place], [address] , [place]. tel:[phone] Referring Provider: Philip Julio, [address], [place], [place], [address]. tel:[phone] OFFICE/OUTPA TIENT VISIT, [facility], [address], [place], [place], [address], [place] tel:[phone] [facility] anxiety1 (chief complaint) insomnia1 (chief complaint) InsomniaGeneralized Anxiety Disorder 7 Sumanth Palacios. [address], [place], [place], [address] , [place]. tel:[phone] Referring Provider: Philip Julio [address], [place], [place], [address]. tel:[phone] OFFICE/OUTPA TIENT VISIT, [facility], [address], [place], [place], [address], [place] tel:[phone] [facility] back pain1 (chief complaint) HLP (chief complaint) anxiety1 (chief complaint) insomnia1 (chief complaint) HyperlipidemiaBack painGeneralized Anxiety Disorder 7 Sumanth Palacios. [address], [place], [place], [address] , [place]. tel:[phone] Referring Provider: Vaibhav Esqueda [address], [place], [place], [address]. tel:[phone] OFFICE/OUTPA TIENT VISIT, [facility], [address], [place], [place], [address], [place] tel:[phone] [facility] anxiety1 (chief complaint) insomnia1 (chief complaint) marijauna1 (chief complaint) weight loss1 (chief complaint) InsomniaGeneralized Anxiety DisorderCannabis abuse, uncomplicatedAbnorm al weight loss 7 Sumanth Palacios. [address], [place], [place], [address] , [place]. tel:[phone] Referring Provider: Vaibhav Esqueda [address], [place], [place], [address]. tel:[phone] OFFICE/OUTPA TIENT VISIT, [facility], [address], [place], [place], [address], [place] tel:[phone] [facility] anxiety1 (chief complaint) insomnia1 (chief complaint) HLP (chief complaint) Generalized Anxiety DisorderHyperlipide miaInsomniaBody mass index (BMI) 32.0-32.9, adult Fe 7 Sumanth Lin [address], [place], [place], [address] , [place]. tel:[phone] Referring Provider: Vaibhav Esqueda [address], [place], [place], [address]. tel:[phone] OFFICE/OUTPA TIENT VISIT, [facility], [address], [place], [place], [address], [place] tel:[phone] [facility] anxiety1 (chief complaint) insomnia1 (chief complaint) obesity1 (chief complaint) Generalized Anxiety DisorderBody mass index (BMI) 33.0-33.9, adultInsomnia 7 Sumanth Lin [address], [place], [place], [address] , [place]. tel:[phone] Referring Provider: Vaibhav Esqueda [address], [place], [place], [address]. tel:[phone] OFFICE/OUTPA TIENT VISIT, [facility], [address], [place], [place], [address], [place] tel:[phone] [facility] HLP (chief complaint) MCV (chief complaint) toothache1 (chief complaint) anxiety1 (chief complaint) HyperlipidemiaAtypi jaguar facial painOther specified disease of bloodInsomnia 0 6 Sumanth Palacios. [address], [place], [place], [address] , [place]. tel:[phone] Referring Provider: Vaibhav Esqueda [address], [place], [place], [address]. tel:[phone] PREV VISIT, EST, AGE [age] [facility], [address], [place], [place], [address], [place] tel:[phone] [facility] PHysical (chief complaint) Encounter for general adult medical exam w abnormal findingsGeneralized anxiety disorderInsomnia 6 Sumanth Palacios. [address], [place], [place], [address] , [place]. tel:[phone] Referring Provider: Vaibhav Esqueda [address] [facility] [address], [place], [place], [address]. tel:[phone] OFFICE/OUTPA TIENT VISIT, EST [facility], [address], [place], [place], [address], [place] tel:[phone] [facility] anxiety1 (chief complaint) hematuria1 (chief complaint) HTN (chief complaint) insomnia1 (chief complaint) Essential (primary) hypertensionHematur ia, unspecifiedGenerali zed anxiety disorderInsomnia 6 Sumanth Lin [address], [place], [place], [address] , [place]. tel:[phone] Referring Provider: Vaibhav Esqueda [address], [place], [place], [address]. tel:[phone] OFFICE/OUTPA TIENT VISIT, EST [facility], [address] [place] [place], [address], [place] tel:[phone] [facility] shoulder pain1 (chief complaint) hematuria (chief complaint) anxiety1 (chief complaint) HematuriaGeneralize d anxiety disorderPain in rt shoulder 6 Sumanth Lin [address], [place], [place], [address] , [place]. tel:[phone] Referring Provider: Philip Julio, [address], [place], [place], [address]. tel:[phone] OFFICE/OUTPA TIENT VISIT, [facility], [address], [place], [place], [address], [place] tel:[phone] [facility] anxiety1 (chief complaint) insomnia1 (chief complaint) Generalized anxiety disorderOther insomnia 0 6 Sumanth Palacios. [address], [place], [place], [address] , [place]. tel:[phone] Referring Provider: Vaibhav Esqueda [address], [place], [place], [address]. tel:[phone] OFFICE/OUTPA TIENT VISIT, [facility], [address], [place], [place], [address], [place] tel:[phone] [facility] Anxiety1 (chief complaint) insomnia1 (chief complaint) fatigue1 (chief complaint) Other insomniaOther fatigueGeneralized anxiety disorder 8 5 Sumanth Palacios. [address], [place], [place], [address] , [place]. tel:[phone] Referring Provider: Vaibhav Esqueda [address], [place], [place], [address]. tel:[phone] OFFICE/OUTPA TIENT VISIT, [facility], [address], [place], [place], [address], [place] tel:[phone] [facility] chest pain1 (chief complaint) anxiety1 (chief complaint) Generalized anxiety disorderHematuria 7 5 Sumanth Palacios. [address], [place], [place], [address] , [place]. tel:[phone] Referring Provider: Vaibhav Esqueda [address], [place], [place], [address]. tel:[phone] OFFICE/OUTPA TIENT VISIT, [facility], [address], [place], [place], [address], [place] tel:[phone] [facility] Anxiety (chief complaint) HLP (chief complaint) hematuria (chief complaint) chest pain (chief complaint) Dietary surveillance and counselingGeneraliz ed anxiety disorderHematuriaHy perlipidemiaChest pain 5 Sumanth Palacios. [address], [place], [place], [address] , [place]. tel:[phone] Referring Provider: Vaibhav Esqueda [address], [place], [place], [address]. tel:[phone] PREV VISIT, EST, AGE [age] [facility], [address], [place], [place], [address], [place] tel:[phone] [facility] PHysical (chief complaint) Routine medical examDietary surveillance and counseling 5 Sumanth Palacios. [address], [place], [place], [address] , [place]. tel:[phone] Referring Provider: Vaibhav Esqueda [address], [place], [place], [address]. tel:[phone] [id number] OFFICE/OUTPA TIENT VISIT, EST [facility], [address], [place], [place], [address], [place] tel:[phone] [facility] rectal bleeding (chief complaint) anxiety (chief complaint) HTN (chief complaint) HLP (chief complaint) Unspecified essential hypertensionOther and unspecified hyperlipidemiaGener alized anxiety disorderRectal bleedingDietary surveillance and counseling 5 Sumanth Palacios. [address], [place], [place], [address] , [place]. tel:[phone] Referring Provider: Vaibhav Esqueda [address], [place], [place], [address]. tel:[phone] OFFICE/OUTPA TIENT VISIT, EST [facility], [address], [place], [place], [address], [place] tel:[phone] [facility] anxiety (chief complaint) alcohol (chief complaint) Generalized anxiety disorderAlcohol dependence in remission Flash- 3-201 5 Sumanth Palacios. [address], [place], [place], [address] , [place]. tel:[phone] Referring Provider: Vaibhav Esqueda [address], [place], [place], [address]. tel:[phone] OFFICE/OUTPA TIENT VISIT, [facility], [address], [place], [place], [address], [place] tel:[phone] [facility] anxiety (chief complaint) alcohol (chief complaint) Generalized anxiety disorderDepression May-0 6- 5 Sumanth Palacios. [address], [place], [place], [address] , [place]. tel:[phone] Referring Provider: Vaibhav Esqueda [address], [place], [place], [address]. tel:[phone] OFFICE/OUTPA TIENT VISIT, [facility], [address], [place], [place], [address], [place] tel:[phone] [facility] anxiety (chief complaint) HTN (chief complaint) Dietary surveillance and counselingDepressio nGeneralized anxiety disorder Apr-0 6 5 Sumanth Palacios. [address], [place], [place], [address] , [place]. tel:[phone] Referring Provider: Vaibhav Esqueda [address], [place], [place], [address]. tel:[phone] OFFICE/OUTPA TIENT VISIT, [facility], [address], [place], [place], [address], [place] tel:[phone] [facility] anxiety (chief complaint) alcohol (chief complaint) Dietary surveillance and counselingSedative, hypnotic or anxiolytic dependence, unspecifiedOther and unspecified alcohol dependence, episodic drinking behavior Mar-0 9-201 5 Sumanth Palacios. [address], [place], [place], [address] , [place]. tel:[phone] Referring Provider: Vaibhav Esqueda [address], [place], [place], [address]. tel:[phone] OFFICE/OUTPA TIENT VISIT, [facility], [address], [place], [place], [address], [place] tel:[phone] [facility] sick (chief complaint) cardiomyop athy (chief complaint) alcohol (chief complaint) anxiety (chief complaint) Dietary surveillance and counselingOther and unspecified diseases of upper respiratory tractCardiomyopathy , Other PrimaryOther and unspecified alcohol dependence, episodic drinking behaviorGeneralized anxiety disorder 5 Sumanth Palacios. [address], [place], [place], [address] , [place]. [phone] Referring Provider: Vaibhav Esqueda [address], [place], [place], [address]. tel: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
== END 2024-07-11 09:27 | disposition home or self-care (01) ==
PROVIDERS: Emergency Provider Emergency Medicine; PCP Family Medicine
DX: S39.92XA Unspecified injury of lower back, initial encounter (principal); F32.A Depression, unspecified; F10.10 Alcohol abuse, uncomplicated; M47.816 Spondylosis without myelopathy or radiculopathy, lumbar region; Z79.891 Long term (current) use of opiate analgesic; Z79.899 Other long term (current) drug therapy; W19.XXXA Unspecified fall, initial encounter
CPT/HCPCS: 72131; 81003; 81025; 96374; 96375; 99284; J1885; J2270

== ENCOUNTER 2024-08-18 07:49 | Observation (INO) | payer OTHER, SELFPAY ==
[2024-08-18] VITALS (45 sets, daily range): BP systolic 127–166; BP diastolic 37–119; PULSE 95–120; RESP 12–48; TEMP 36.5–36.6; O2SAT 93–100
--- NOTE | ~2024-08-18 | CT_ITS ---
EXAMINATION: CT chest abdomen pelvis w con DATE: 08/18/2024 15:08 INDICATION: Abdominal pain. Vomiting. TECHNIQUE: Computed tomography (CT) of the chest, abdomen, and pelvis was performed with 100 mL Omnip aque 350 intravenous contrast. Automated exposure control and iterative reconstruction technique were employed. The dose-length product was 562.48 mGy-cm. COMPARISON: CT abdomen and pelvis 12/29/23 FINDINGS: CHEST CT: There is minimal atelectasis on the left. There is a 4 mm nodule in left lower lobe, likely benign. N o pleural effusion. The heart size is normal. No pericardial effusion. There is mild thoracic spondyl osis. ABDOMEN/PELVIS CT: There is diffuse hepatic steatosis. The gallbladder is distended. The spleen, pancreas, adrenal gland s, and kidneys are normal. There are no dilated loops of bowel. The appendix is normal. There are no pathologically enlarged lymph nodes. There is no free intraperitoneal fluid. There is a 1.5 x 0.6 cm perianal abscess on the left. There is a small focus of gas in the right perianal area. There is mild lumbar spondylosis. IMPRESSION: 1. Perianal abscess with improvement from 12/29/23. 2. Diffuse hepatic steatosis. 3. Gallbladder distention, which may be secondary to fasting. Correlate with physical exam to exclude acute cholecystitis. Reviewed, dictated and finalized at location A. HOLE DRILLER IMPRESSION: 1. Perianal abscess with improvement from 12/29/23. 2. Diffuse hepatic steatosis. 3. Gallbladder distention, which may be secondary to fasting. Correlate with ph ysical exam to exclude acute cholecystitis.
--- NOTE | ~2024-08-18 | XR_ITS ---
EXAMINATION: XR chest 1V portable DATE: 08/18/2024 10:53 INDICATION: Tachycardia. TECHNIQUE: A single frontal view of the chest was obtained. COMPARISON: Chest 2 views 04/21/2023 FINDINGS: There is no pneumonia, pleural effusion, or pneumothorax. The heart size is normal. IMPRESSION: 1. No acute cardiopulmonary disease. Reviewed, dictated and finalized at location A. H ASSISTANT
--- OUTSIDE RECORDS SUMMARY | 2024-08-18 07:55 | XMS_ITS | Referral Summary ---
Author Organization [facility] Address [address] [place] [address] Care Team Providers Care Detention Attendant Name Role Phone Unavailable Primary Care Provider Unavailabl e Source Comments [facility],non-owned Affiliates and Associated Physician Practices is amultiple site organization consisting of ambulatory clinics and hospital sitesin [place], [place], [place] and [place]. This disclosure is being madepursuant to the Care Everywhere program and may not contain all information available regarding this patient. Last updated 18.[facility] Encounters Date Type Department Care Team Description 07/30/2024 Telephone [facility] [address] [place] [address] Peter Cox MD Appointment (Referral/) from Last 3 Months Social History Tobacco Use Types Packs/Day Years Used Date Smoking Tobacco: Never Assessed Sex and Gender Information Value Date Recorded Sex Assigned at Not on file Gender Identity Not on file Sexual Orientation Not on file Plan of Treatment Not on file
--- OUTSIDE RECORDS SUMMARY | 2024-08-18 07:55 | XMS_ITS | Clinical Summary ---
Author Organization [facility] Address [address] [place] [address] Care Team Providers Care Tack Cutter Name Role Phone Unavailable Primary Care Provider Unavailabl e Source Comments [facility],non-owned Affiliates and Associated Physician Practices is amultiple site organization consisting of ambulatory clinics and hospital sitesin [place], [place], [place] and [place]. This disclosure is being madepursuant to the Care Everywhere program and may not contain all information available regarding this patient. Last updated 18.[facility] Encounters Date Type Department Care Team Description 07/30/2024 Telephone [facility] [address] [place] [address] Peter Cox MD Appointment (Referral/) from Last 3 Months Social History Tobacco Use Types Packs/Day Years Used Date Smoking Tobacco: Never Assessed Sex and Gender Information Value Date Recorded Sex Assigned at Not on file Gender Identity Not on file Sexual Orientation Not on file Plan of Treatment Health Maintenance Due Date Last Done Comments LIPID TESTING 1981 MAMMOGRAM 1981 PAP SMEAR 1981 HIV SCREENING 1996 HEPATITIS C SCREENING 12/23/1999 DTAP/TDAP/TD VACCINES (1 - Tdap) 2000 HEPATITIS B VACCINE (1 of 3 - 19+ 3-dose series) 2000 COVID-19 VACCINE (2023-2 5 season) 2024 INFLUENZA VACCINE (#1) 2024 DEPRESSION SCREENING 06/25/2024 ZOSTER VACCINE (1 of 2) 12/28/2031 HIB VACCINE Aged Out No longer eligi ble based on patient's age to complete this topic HPV VACCINE Aged Out No longer eligi ble based on patient's age to complete this topic MENINGOCOCCAL (Group B) VACCINE Aged Out No longer eligible based on patient's age to complete this topic MENINGOCOCCAL VACCINE Aged Out No bre velma eligible based on patient's age to complete this topic PNEUMOCOCCAL VACCINE Aged Out No long er eligible based on patient's age to complete this topic
--- OUTSIDE RECORDS SUMMARY | 2024-08-18 07:55 | XMS_ITS | Patient Health Summary ---
Author Organization [facility] Address [address] [place] [address] Care Team Providers Care Chemical Laboratory Chief Name Role Phone Unavailable Primary Care Provider Unavailabl e Note from [facility],non-owned Affiliates and Associated Physician Practices is amultiple site organization consisting of ambulatory clinics and hospital sitesin [place], [place], [place] and [place]. This disclosure is being madepursuant to the Care Everywhere program and may not contain all information available regarding this patient. Last updated 18.[facility] Social History Tobacco Use Types Packs/Day Years Used Date Smoking Tobacco: Never Assessed Sex and Gender Information Value Date Recorded Sex Assigned at Not on file Gender Identity Not on file Sexual Orientation Not on file
--- OUTSIDE RECORDS SUMMARY | 2024-08-18 07:56 | XMS_ITS | CONTINUITY OF CARE DOCUMENT ---
Author Name harshad patricia Address Unknown Organization [facility] Address [address] [place] [address] Phone [phone] Care Team Providers Care Cardiothoracic Physiotherapist Name Role Phone Lucy SANTOYO, Micha Unavailable JANICE SANTOYO, UJSTIN Unavailable JANETTE PIERCE MD Unavailable [phone] INSURANCE PROVIDERS Payer name Policy type / Coverage type [place] [employer] [place] [employer] [id number] [employer] Medicaid [id number] HEALTHCARE AND FAMILY SERVICES Medicaid 1 [id number]
--- OUTSIDE RECORDS SUMMARY | 2024-08-18 07:56 | XMS_ITS | Data Portability ---
Author Organization MD - [facility] [employer], Main Office Address [address] [place] [address] Care Team Providers Care Chart Clerk Name Role Phone EREN FRY Primary Care Provider [phone] Assessment No assessment recorded. Plan of Treatment Reminders Order Date Submit Date Provider Last Modified By Organization Details Last Modified Time Details Appointments None recorded. Lab drug screen, urine - screening for presence of phentermin e 2023 024 [facility], [address], [address], 4 10:26:46 Referral orthopedic spine surgeon referral - Please call patient to schedule an appointmen t. Thank you. 2024 025 [facility] Dept Of Orthopedics, [facility] [place], [address], 5 17:20:35 physical therapist referral - Please call pt to schedule 2024 025 [facility], [address], [place], [address], 5 19:28:[address] referral - Please call patient to schedule an appointmen t. Thank you. 2023 024 [email or web address] Kaylie Mercedes [facility], [address] [facility] [address], [place], [address], 4 09:04:52 Procedures None recorded. Surgeries None recorded. Imaging XR, lumbosacra l spine, 2 or 3 view [address] [facility] ([facility]), [address], [place], [address], 5 17:01:03 Medication Orders ketorolac 60 mg/2 mL intramuscu lar solution 2024 025 Not available 17:19:35 hydrocodon e 5 mg-acetami nophen 325 mg tablet 2024 025 [facility], [address], [place], [id number], 5 16:09:26 triamcinol one acetonide 40 mg/mL suspension for injection 2024 025 [email or web address] Not available 5 16:00:56 cyclobenza geraldo 10 mg tablet 2024 025 [facility]99063, [address], [place], [id number], 5 16:34:38 Medrol (Patrice) 4 mg tablets in a dose pack 2024 025 [facility], [address], [place], [id number], 5 15:44:50 tramadol 50 mg tablet 2024 025 [facility]08862, [address], [place], [id number], 5 16:05:23 phentermin e 15 mg capsule 2023 024 [facility], [address], [place], [id number], 15:48:57 trazodone 50 mg tablet [address] [facility] [address] [facility]32412, [address], [place], [id number], 15:49:08 sulfametho xazole 800 mg-trimeth oprim 160 mg tablet [address] [facility] [address] [facility]65326, [address] [facility], [place], [place], [id number], 15:49:04 phentermin e 15 mg capsule [address] [facility]36786, [address], [place], [id number], 15:48:57 Patient TargetsNo targets recorded. Patient InstructionsNo instructions recorded. Reason for Referral Psychiatrist Referral for Mi xed anxiety and depressive disorder Please call patient to schedule an appointment. Thank you. Referring Physician: Sharon Leonardo [facility] Medicine, Encounter Date: 04/29/2024 Physical Therapist Referral for Lumbago with sciatica Please call pt to schedule Referring Physician: Sharon Leonardo [facility] Medicine, Encounter Date: 07/09/2024 Orthopedic Spine Surgeon Ref erral for Lumbar spondylosis Please call patient to schedule an appointment. Thank you. Referring Physician: Sharon Leonardo [facility] Medicine, Encounter Date: 07/24/2024 Results Created Date Observation Date Name Description Value Unit Range Abnormal Flag Note LastModifiedBy Organization Detail LastModifiedTime 07/09/1907/09/2024 urina lysis , dipst ick Leukocytes (reference range: negative gaye/ l) Negati ve Not Available [facility] [address] [facility], [place], [address], 07/09/2024 16:57:48 07/09/1907/0907/09/2024 urina lysis , dipst ick Nitrite (reference rage: negative mg/dl) negati ve Not Available [address], [address], 07/09/2024 16:57:48 07/09/19 25 07/09/2024 urina lysis , dipst ick Urobilinogen (reference range: 0.2-1 mg/dl) 0.2 Not Available [address], [address], 07/09/2024 16:57:48 07/09/19 25 07/09/2024 urina lysis , dipst ick Protein (reference range: negative mg/dl) Negati ve Not Available [address], [address], 07/09/2024 16:57:48 07/09/19 25 07/09/2024 urina lysis , dipst ick pH (reference range: 5-7) 6.5 Not Available [address], [address], 07/09/2024 16:57:48 07/09/19 25 07/09/2024 urina lysis , dipst ick Blood (reference range: negative Ted/ l) Negati ve Not Available [address], [address], 07/09/2024 16:57:48 07/09/19 25 07/09/2024 urina lysis , dipst ick Specific [place] (reference range: 1.005-1.030) 1.010 Not Available [address], [address], 07/09/2024 16:57:48 07/09/19 07/09/2024 urina lysis , dipst ick Ketone (reference range: negative mg/dl) Negati ve Not Available [address], [address], 07/09/2024 16:57:48 07/09/19 25 07/09/2024 urina lysis , dipst ick Bilirubin (reference range: negative mg/dl) Negati ve Not Available [address], [address], 07/09/2024 16:57:48 07/09/19 25 07/09/2024 urina lysis , dipst ick Glucose (reference range: negative mg/dl) Negati ve Not Available [address], [address], 07/09/2024 16:57:48 07/09/19 25 07/09/2024 urina lysis , dipst ick Appearance Clear Not Available [address], [address], 07/09/2024 16:57:48 07/09/19 25 07/09/2024 urina lysis , dipst ick Color Yellow Not Available [address], [address], 07/09/2024 16:57:48 12/29/19 24 12/29/2023 CT, abdom en + pelvi s, w/ contr ast No observ ation record ed. [email or web address], [address], 12/31/2023 08:29:42 07/11/19 25 07/11/2024 CT, lumba r spine , w/o contr ast No observ ation record ed. [email or web address] [address] [place], [address], 07/14/2024 09:32:48 Result Notes None recorded. Problems Name Problem SNOMED Code Status Onset Date Resolution Date Notes Provider Name and Address Organization Details Recorded Time Bipolar disorder 87970532 Active 2021 Not Available [facility] 3 00:58:00 Alcohol abuse 54072291 Active 2022 Not Available [facility] 3 00:58:00 Irritable bowel syndrome with diarrhea 897005301 Active 2021 Not Available [facility] 3 00:58:01 Anxiety disorder 594659754 Active 2021 Not Available [facility] 3 00:58:01 Depressive disorder 02790823 Active 2021 Not Available [facility] 3 00:58:01 Hypertensi ve disorder 87048652 Active 2021 Not Available [facility] 3 00:58:01 Obesity 667975782 Active 2021 Not Available [facility] 3 00:58:01 Alcohol dependence 05340560 Active 2022 Not Available [facility] 3 00:58:01 Chronic insomnia 655332164 Active 2021 Not Available [facility] 3 00:58:01 Seasonal allergic rhinitis 995752097 Active 2022 Eren Fry MD [address], [place], [address] , [employer] 3 15:18:38 Impacted cerumen of bilateral ears 9828536152052 108 Active 2023 Eren Fry MD [address], [place], [address] , [employer] 4 11:02:24 Labial cyst 040382704 Active 2023 GAIL Prakash [address], [place], [address] , [employer] 4 09:42:05 Insomnia 268522350 Active 2023 GAIL Prakash [address], [place], [address] , [facility] [employer] [facility] 4 09:45:01 Mixed anxiety and depressive disorder 544262179 Active 2023 GAIL Prakash [address], [place], [address] , [facility] [employer] [facility] 4 16:16:57 Lumbago with sciatica 600401893 Active 2024 GAIL Prakash [address], [place], [address] , [facility] [employer] [facility] 5 16:21:33 Flank pain 120773346 Active 2024 GAIL Prakash [address], [place] [address], [place], [address] , [facility] [employer] [facility] 5 16:57:45 Lumbar spondylosi s 723673586 Active 2024 GAIL Prakash [address] [facility] [place] [address], [place], [address] , [facility] [employer] [facility] 5 15:59:19 Problem Notes None recorded. Procedures Surgical History Date Name Laterality Status Provider Name and Address Organization Details Recorded Time 4 Date of Last Pap Smear completed Jerica Duque RN [facility] [employer] [facility] 07/09/2024 16:17:04 delivery completed Not Available [facility] 08/24/2022 00:57:15 Imaging Results Imaging Date Name Status LastModified by Organiz ation Details LastModified Time 12/29/2023 CT, abdomen + pelvis, w/ contrast completed [address], [address], 12/31/2023 08:29:42 07/11/2024 CT, lumbar spine, w/o contrast completed [address], [address], 07/14/2024 09:32:48 Procedure Notes None recorded. Medical Equipment None Reported. Allergies No known drug allergies Medications Name Sig Start Date Stop Date Status Note LastModified by Organization Details LastModified Time cyclobenz aprine 10 mg tablet TAKE 1 TABLET BY MOUTH TWICE DAILY FOR 14 DAYS NEEDED active Not Available Not Available No t Available doxycycli ne hyclate 100 mg capsule TAKE 1 CAPSULE BY MOUTH TWICE DAILY FOR 7 DAYS 07/09 completed Not Available Not Available Not Available trazodone 50 mg tablet TAKE 1 TABLET BY MOUTH EVERY DAY AT BEDTIME active Not Available Not Available No t Available cetirizin e 10 mg tablet TAKE 1 TABLET BY MOUTH EVERY DAY 09/09 completed Not Available Not Available Not Available alprazola m 1 mg tablet TAKE 1 TABLET BY MOUTH TWICE DAILY NEEDED 11/17 completed Not Available Not Available Not Available hydrocodo ne 5 mg-acetam inophen 325 mg tablet TAKE 1 TABLET BY MOUTH EVERY 6 HOURS FOR 7 DAYS NEEDED active Not Available Not Available No t Available naltrexon e 50 mg tablet TAKE 1 TABLET BY MOUTH ONCE DAILY WITH FOOD OR MILK TO DECREASE GI UPSET 09/26 completed Not Available Not Available Not Available metronida zole 0.75 % (37.5 mg/5 gram) vaginal gel 09/25 completed Not Available Not Available Not Available lisinopri l 20 mg tablet TAKE 1 TABLET BY MOUTH EVERY DAY IN THE MORNING active Not Available Not Available No t Available ondansetr on HCl 4 mg tablet TAKE 1 TABLET BY MOUTH EVERY 6 TO 8 HOURS NEEDED FOR NAUSEA AND VOMITING 04/29 completed Not Available Not Available Not Available famotidin e 40 mg tablet TAKE 1 TABLET BY MOUTH EVERY DAY 09/26 completed Not Available Not Available Not Available Debrox 6.5 % ear drops INSTILL 4 DROPS INTO AFFECTED EAR(S) BY OTIC ROUTE 2 TIMES PER DAY 09/25 completed Not Available Not Available Not Available phentermi ne 15 mg capsule TAKE 1 CAPSULE BY MOUTH EVERY DAY IN THE MORNING 04/29 completed Not Available Not Available Not Available hydroxyzi ne HCl 50 mg tablet TAKE 1 TABLET BY MOUTH TWICE DAILY NEEDED 03/10 completed Not Available Not Available Not Available sulfameth oxazole 800 mg-trimet hoprim 160 mg tablet TAKE 1 TABLET BY MOUTH EVERY 12 HOURS FOR 10 DAYS DIRECTED 04/29 completed Not Available Not Available Not Available phentermi ne 30 mg capsule TAKE 1 CAPSULE BY MOUTH EVERY DAY DIRECTED 07/09 completed Not Available Not Available Not Available ondansetr on 8 mg disintegr ating tablet DISSOLVE 1 TABLET ON THE TONGUE THREE TIMES DAILY NEEDED FOR NAUSEA OR VOMITING 07/11 completed Not Available Not Available Not Available lamotrigi ne 25 mg tablet Take 1 tablet every 12 hours by oral route after meals for 30 days. 07/11 completed Not Available Not Available Not Available pantopraz ole 20 mg tablet,de layed release 04/29 completed Not Available Not Available Not Available amoxicill in 875 mg tablet TAKE 1 TABLET BY MOUTH EVERY 12 HOURS 06/06 completed Not Available Not Available Not Available alprazola m 0.25 mg tablet TAKE 1 TABLET BY MOUTH EVERY DAY FOR 15 DAYS NEEDED 01/15 completed Not Available Not Available Not Available famotidin e 20 mg tablet 04/29 completed Not Available Not Available Not Available chlordiaz epoxide 25 mg capsule TAKE 1 CAPSULE BY MOUTH TWICE DAILY FOR 10 DAYS NEEDED FOR AGITATIO N 04/29 completed Not Available Not Available Not Available doxycycli ne monohydra te 100 mg capsule TAKE 1 CAPSULE BY MOUTH TWICE DAILY 09/26 completed Not Available Not Available Not Available triamcino lone acetonide 40 mg/mL suspensio n for injection Take 1.5 mL every day by injectio n route as directed for 1 day. 07/24 completed Not Available Not Available Not Available cephalexi n 500 mg capsule TAKE 1 CAPSULE BY MOUTH EVERY 6 HOURS FOR 7 DAYS 03/10 completed Not Available Not Available Not Available pantopraz ole 40 mg tablet,de layed release TAKE 1 TABLET BY MOUTH AT BEDTIME 09/11 completed Not Available Not Available Not Available fluoxetin e 20 mg tablet Take 1 tablet every day by oral route in the evening for 30 days. active Not Available Not Available No t Available buspirone 10 mg tablet TAKE 1 TABLET BY MOUTH EVERY 12 HOURS NEEDED active Not Available Not Available No t Available divalproe x ER 500 mg tablet,ex tended release 24 hr 09/26 completed Not Available Not Available Not Available polymyxin B sulfate 10,000 unit-trim ethoprim 1 mg/mL eye drops INSTILL 1 DROP IN LEFT EYE EVERY 3 HOURS WHILE AWAKE FOR 7 DAYS. DO NOT EXCEED 6 DOSES IN 24 HOURS 04/29 completed Not Available Not Available Not Available diclofena c potassium 50 mg tablet TAKE 1 TABLET BY MOUTH THREE TIMES DAILY NEEDED FOR PAIN active Not Available Not Available No t Available chlordiaz epoxide 10 mg capsule TAKE 1 CAPSULE BY MOUTH THREE TIMES DAILY NEEDED FOR ANXIETY 08/14 completed stopped Not Available Not Available Not Available hydroxyzi ne HCl 25 mg tablet TAKE 1 TABLET BY MOUTH EVERY 8 HOURS NEEDED 09/25 completed Not Available Not Available Not Available methylpre dnisolone 4 mg tablets in a dose pack FOLLOW PACKAGE DIRECTIO NS 07/24 completed Not Available Not Available Not Available ketorolac 60 mg/2 mL intramusc ular solution Inject 2 mL every day by intramus cular route as directed for 1 day. 2024 active Not Available Not Available Not Avai lable ondansetr on 4 mg disintegr ating tablet DISSOLVE 1 TABLET ON THE TONGUE EVERY 8 HOURS NEEDED FOR NAUSEA OR VOMITING 03/10 completed Not Available Not Available Not Available fluoxetin e 20 mg capsule TAKE 1 CAPSULE BY MOUTH EVERY DAY IN THE MORNING 01/15 completed Not Available Not Available Not Available fluticaso ne propionat e 50 mcg/actua tion nasal spray,denys pension [place] 2 sprays every day by intranas al route as needed for 30 days. 09/09 completed Not Available Not Available Not Available sertralin e 50 mg tablet TAKE 1 TABLET BY MOUTH EVERY DAY IN THE MORNING 01/15 completed Didnt like medicati on Not Available Not Available Not Available dicyclomi ne 10 mg capsule Take 1 capsule every 8 hours by oral route as needed for 30 days. active Not Available Not Available No t Available phentermi ne 37.5 mg capsule TAKE 1 CAPSULE BY MOUTH EVERY DAY DIRECTED active Not Available Not Available No t Available amoxicill in 875 mg-potass ium clavulana te 125 mg tablet TAKE 1 TABLET BY MOUTH EVERY 12 HOURS 07/09 completed Not Available Not Available Not Available escitalop abhinav 10 mg tablet TAKE 1 TABLET BY MOUTH EVERY DAY 07/09 completed Not Available Not Available Not Available escitalop abhinav 5 mg tablet TAKE 1 TABLET BY MOUTH EVERY DAY DIRECTED 03/10 completed Not Available Not Available Not Available acamprosa te 333 mg tablet,de layed release TAKE 2 TABLETS BY MOUTH THREE TIMES DAILY DIRECTED 03/10 completed Not Available Not Available Not Available Vivitrol 1 injectio n monthly 2023 active Not Available Not Available Not Avai lable ID NOW COVID-19 Test Kit TEST DIRECTED TODAY 09/26 completed Not Available Not Available Not Available BinaxNOW COVID-19 Ag Self Test kit TEST DIRECTED TODAY 03/10 completed Not Available Not Available Not Available Vitals Date Recorded Body height Body mass index (BMI) Body weight Body temperature Heart rate Respiratory rate Oxygen saturation Oxygen saturation in Arterial blood by Pulse oximetry Systolic blood pressure Diastolic blood pressure Provider Name and Address Organization Details Last Updated DateTime 4 154.94 cm 30.3 kg/m2 52687.2 3 g 97.9 [degF] 66 /min 20 /min 98 % 98 % 126 mm[Hg] 80 mm[Hg] Arjun Hanley [facility] [employer] 4 11:36:02 Date Recorded Body height Body mass index (BMI) Body weight Body temperature Heart rate Respiratory rate Oxygen saturation Oxygen saturation in Arterial blood by Pulse oximetry Pain severity - 0-10 verbal numeric rating [Score] - Reported Systolic blood pressure Diastolic blood pressure Provider Name and Address Organization Details Last Updated DateTime 4 154.94 cm 30.8 kg/m2 44073.9 1 g 97.2 [degF] 92 /min 20 /min 99 % 99 % 0 122 mm[Hg] 78 mm[Hg] Jerica Duque RN [facility] [employer] [facility] 4 09:33:14 Date Recorded Body height Body mass index (BMI) Body weight Body temperature Heart rate Respiratory rate Oxygen saturation Oxygen saturation in Arterial blood by Pulse oximetry Pain severity - 0-10 verbal numeric rating [Score] - Reported Systolic blood pressure Diastolic blood pressure Provider Name and Address Organization Details Last Updated DateTime 4 154.94 cm 31.7 kg/m2 63251.0 8 g 97.2 [degF] 90 /min 24 /min 99 % 99 % 0 120 mm[Hg] 80 mm[Hg] Jerica Duque RN [facility] [employer] [facility] 4 15:52:06 Date Recorded Body height Body mass index (BMI) Body weight Body temperature Heart rate Respiratory rate Oxygen saturation Oxygen saturation in Arterial blood by Pulse oximetry Pain severity - 0-10 verbal numeric rating [Score] - Reported Provider Name and Address Organization Details Last Updated DateTime 5 154.94 cm 31 kg/m2 76336.1 5 g 98 [degF] 108 /min 24 /min 98 % 98 % 8 Jerica Duque RN [facility] [employer] [facility] 5 16:13:15 Date Recorded Body height Body mass index (BMI) Body weight Body temperature Heart rate Respiratory rate Oxygen saturation Oxygen saturation in Arterial blood by Pulse oximetry Pain severity - 0-10 verbal numeric rating [Score] - Reported Systolic blood pressure Diastolic blood pressure Provider Name and Address Organization Details Last Updated DateTime 5 154.94 cm 30.3 kg/m2 85882.8 8 g 97.2 [degF] 100 /min 20 /min 99 % 99 % 8 120 mm[Hg] 82 mm[Hg] Jerica Duque RN [facility] [employer] [facility] 5 15:48:43 Social History Question Answer Notes LastModified by Organization Details LastModified Time Tobacco Smoking Status Never Smoker Not Available [facility] 08/24/2022 00:57:11 Do You Have An Advance Directive? No [id number] Information not available 08/24/2022 What Is Your Level Of Alcohol Consumption? Heavy Stopped Drinking -07/17/222023 Information not available 04/29/2024 Do You Wear A Helmet When Biking? No [email or web address].[id number] [id number] Information not available 08/24/2022 What Is Your Level Of Caffeine Consumption? Moderate [id number].[id number] [id number] Information not available 08/24/2022 In The 14 Days Before Symptom Onset, Have You Had Close Contact With A Laboratory-confi rmed COVID-19 While That Case Was Ill? No [id number].[id number] [id number] Information not available 08/24/2022 In The 14 Days Before Symptom Onset, Have You Had Close Contact With A Person Who Is Under Investigation For COVID-19 While That Person Was Ill? No [id number].[id number] [id number] Information not available 08/24/2022 What Type Of Diet Are You Following? REGULAR MIGRATION.0301 [id number] Information not available 08/24/2022 What Is The Highest Grade Or Level Of School You Have Completed Or The Highest Degree You Have Received? 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 No MIGRATION.0301 [id number] Information not available 08/24/2022 What Is The Fluoride Status Of Your Home? Unknown [id number].[id number] [id number] Information not available 08/24/2022 Do You Use Insect Repellent Routinely? No MIGRATION.0301 [id number] Information not available 08/24/2022 Where Do You Live? SingleLevelHouse MIGRATION.0301 [id number] Information not available 08/24/2022 Are You Following A Low Salt Diet? No MIGRATION.0301 [id number] Information not available 08/24/2022 Do You Have A Medical Power Of Music Supervisor? No MIGRATION.0301 [id number] Information not available 08/24/2022 Do You Have Any Pets? No MIGRATION.0301 [id number] Information not available 08/24/2022 What Is Your Relationship Status? Single MIGRATION.0301 [id number] Information not available 08/24/2022 Do You Use Your Seat Belt Or Car Seat Routinely? Yes [id number].0301 [id number] Information not available 08/24/2022 Do You Have Smoke And Carbon Monoxide Detectors In Your Home? Yes MIGRATION.0301 [id number] Information not available 08/24/2022 Are You Passively Exposed To Smoke? No MIGRATION.0301 114238 Information not available 08/24/2022 Are There Any Smokers In Your House? No MIGRATION.0301 [id number] Information not available 08/24/2022 Do You Participate In Social Media? Yes MIGRATION.0301 [id number] Information not available 08/24/2022 Do You Feel Stressed (tense, Restless, Nervous, Or Anxious, Or Unable To Sleep At Night)? [id number] Information not available 09/26/2023 Do You Use Sunscreen Routinely? No MIGRATION.0301 [id number] Information not available 08/24/2022 Have You Recently Traveled Abroad? No MIGRATION.0301 [id number] Information not available 08/24/2022 Do You Have Any Dietary Restrictions? Yes [id number] Information not available 08/24/2022 Sex: Female Functional Status Question Answer Note LastModified by Organizat ion Details LastModified Time What is your exercise level? Occasional [id number] Information not available 08/24/2022 Mental Status None recorded. Family History Relationship Description Onset Age of this Age Resolved Age Notes LastModified by Organization Details LastModified Time Mother Hypertensive disorder [id number] Not available 08/24/2022 00:57:17 Mother Heart disease [id number] Not available 08/24/2022 00:57:17 Medical History Condition Response BLINDNESS N RHEUMATIC FEVER N BLADDER PROBLEMS N KIDNEY STONES N MRSA N OTHER # 1 N POLIO N LUNG DISEASE/DISORDER N HISTORY OF DRUG ABUSE N RADIATION / CHEMOTHERAPY N COPD N Other # 2 N BLOOD DISEASES N SURGERY N EAR OR HEARING PROBLEMS N MUMPS N SHINGLES N DEPRESSION (INCLUDING POST ) Y FEMALE PROBLEMS / INFECTIONS N BOWEL PROBLEMS N STROKE/TIA N THYROID DISEASE N ULCERS N BENIGN PROSTATIC HYPERPLASIA N MEASLES N CERVICALGIA N HYPOTENSION N TB SKIN TEST N MYOCARDIAL INFARCTION N PARAPELGIA N OBESITY N GERD/NAUSEA N ANEURYSM N URINARY/BLADDER/KIDNEY PROBLEMS N CORONARY ARTERY DISEASE (CAD) N MENIERE'S DISEASE N ADDICTION CONCERNS Y ENDOMETRIOSIS N USE OF BLOOD THINNERS N SKIN PROBLEMS N EMPHYSEMA N GASTROINTESTINAL DISORDER N MUSCLE,JOINT OR BONE PROBLEMS N GASTROINTESTINAL BLEEDING N BLOOD CLOTS N ASTHMA N CATARACTS N ERECTILE DYSFUNCTION N GI PROBLEMS Y CHF N Low Testosterone N NEUROPATHY N INFERTILITY N AIDS/HIV N FRACTURES N CHEMOTHERAPY / RADIATION N VISION/EYE PROBLEMS N LIVER DISEASE N MALE HYPOGONADISM N HYPERTENSION Y TOURETTE'S N ANXIETY DISORDER Y BLOOD TRANSFUSION N ANEMIA/BLOOD DISORDER N CHRONIC EAR INFECTIONS N BRONCHITIS N TUBERCULOSIS N GLAUCOMA N FOOT PROBLEM N DIVERTICULITIS N CHICKENPOX N SLEEP APNEA N ALLERGIES/HAYFEVER N INFECTIOUS DISEASE N HEART ARRHYTHMIA N PROSTATE N INSOMNIA N HIGH CHOLESTEROL / HYPERLIPIDEMIA N HYPERTHYROIDISM N EYE PROBLEMS N EATING DISORDER N EDEMA N CHRONIC PAIN SYNDROME N CONSTIPATION N CAROTID BLOCKAGE N BACK / NECK PROBLEMS Y HAVE YOU BEEN HOSPITALIZED OR SEEN IN [facility] IN THE PAST YEAR ? N ATHEROSCLEROSIS N BREAST PROBLEMS N DIALYSIS N ECZEMA N FIBROMYALGIA N OSTEOPOROSIS N ARTHRITIS N NO SIGNIFICANT PAST MEDICAL HISTORY N APPENDICITIS N DIABETES, TYPE N BAD TEETH N HEARTBURN / REFLUX N ADD/ADHD N AUTISM SPECTRUM DISORDER (ASD) N HEPATITIS / LIVER DISEASE N PULMONARY DISEASE N GOUT N SLEEP DISORDER N ALZHEIMER'S DISEASE N PAIN N HERPES N DEMENTIA N HEADACHES/MIGRAINES N SEIZURES/EPILEPSY N VASCULAR DISEASE N PACEMAKER N DIZZINESS N HEART DISEASE/HEART PROBLEMS N KIDNEY DISEASE Y DEVELOPMENTAL OR BEHAVIORAL DISORDERS N MULTIPLE SCLEROSIS N SCARLET FEVER N MENTAL DISORDER/ILLNESS N CARDIAC ARRHYTHMIA N CANCER: SPECIFY N PNEUMONIA N ATRIAL FIBRILLATION N Gall Stones N PULMONARY EMBOLISM N AUTOIMMUNE DISEASE N Gynecological History Statement/Question Response Date of Last Colonoscopy Flow Heavy Date of LMP 07/06/2024 Frequency of Cycle (Q days) 28 Menses Monthly Y Duration of Flow (days) 5 Date of Last Pap Smear 05/25/2024 Most Recent Mammogram Obstetrics History GPAL:G 0 P 0 0 0 0 Past Encounters Encounter ID Performer Location Encounter Start Date Encounter Closed Date Diagnosis/Indication Diagnosis SNOMED-CT Code Diagnosis ICD10 Code Diagnosis Note [id number] [address] [address] 1 09/26/2021 00:00:00 09/26/2021 15:24:[id number] [address] 1 11/17/2021 00:00:00 11/17/2021 12:35:[id number] [address] 1 07/11/2022 00:00:00 07/11/2022 15:26:[id number] [address] 1 08/14/2022 00:00:00 08/14/2022 16:23:46 [id number] Eren Fry MD [address] [address] 1 09/11/2022 15:57:47 09/11/2022 16:21:22 Alcohol dependence 32289598 F10.20 Depressive disorder 3548 9007 F32.A Anxiety disorder 7957208 06 F41.9 Chronic insomnia 5298538 04 F51.04 Obesity 161247174 E66.9 [id number] Eren Fry MD [address] [address] 1 10/25/2022 08:50:49 10/25/2022 09:14:51 Anxiety disorder 352748798 F41.9 Alcohol dependence 95131 003 F10.20 History Depressive disorder 8 7 F32.A Chronic insomnia 1156716 04 F51.04 Obesity 176102433 E66.9 [id number] Eren Fry MD [address] [address] 1 01/03/2023 12:27:26 01/03/2023 13:54:15 Abscess of labia 031953937 N76.4 Rt labia Nausea 029362579 R11.0 Alcohol dependence 55104 003 F10.20 [id number] Eren Fry MD [address] [address] 1 01/15/2023 16:20:49 01/15/2023 17:06:48 Anxiety disorder 090132780 F41.9 Depressive disorder 35477 F32.A Chronic insomnia 1298355 04 F51.04 Alcohol dependence 45093 003 F10.20 Obesity 057667103 E66.9 [id number] Eren Fry MD [address] [address] 1 06/06/2023 15:02:51 06/06/2023 15:38:59 Alcohol dependence 98137502 F10.20 Anxiety disorder 4194761 06 F41.9 Depressive disorder 3548 9007 F32.A Chronic insomnia 6697790 04 F51.04 Obesity 085240189 E66.9 Seasonal a llergic rhinitis 585606655 J30.2 [id number] Eren Fry MD [address] [address] 1 07/02/2023 16:52:42 07/02/2023 17:39:54 Alcohol dependence 61564425 F10.20 Depressive disorder 3548 9007 F32.A Anxiety disorder 7647483 06 F41.9 Chronic insomnia 2123715 04 F51.04 Obesity 913015036 E66.9 Seasonal a llergic rhinitis 885436930 J30.2 [id number] Eren Fry MD [address] [address] 1 08/01/2023 10:50:50 08/01/2023 11:23:18 Adult health examination 477628516 Z00.00 Obesity 814753924 E66.9 Alcohol dependence 40188 003 F10.20 Irritable bowel syndrome with diarrhea 711924030 K58.0 Screening for disorder 251419577 Z13.9 Impacted c erumen of bilateral ears 1417196321 479321 H61.23 [id number] Sharon Leonardo [employer] [address] [address] 1 09/10/2023 14:49:49 09/10/2023 15:27:44 Alcohol dependence 01371718 F10.20 Depressive disorder 3548 9007 F32.A Anxiety disorder 9491431 06 F41.9 Chronic insomnia 2628357 04 F51.04 Impacted c erumen of bilateral ears 9247926711 570781 H61.23 [id number] Sharon Leonardo [employer]MIN[employer] [address] [id number] 1 09/26/2023 14:50:04 09/26/2023 15:43:12 Depressive disorder 92088574 F32.A Follow up in 6 weeks [id number] GAIL Prakash [address] [address] 1 10/17/2023 11:29:08 10/17/2023 11:56:05 Obesity 471931235 E66.9 Drug of abuse screen 897 49024 Z02.83 [id number] Sharon Leonardo [address] [address] 1 03/10/2024 09:25:33 03/10/2024 09:52:39 Labial cyst 380002100 N90.7 Obesity 626765041 E66.9 Insomnia 066503616 G47.0 0 [id number] Sharon Leonardo [address] [address] 1 04/29/2024 15:43:13 04/29/2024 16:38:29 Mixed anxiety and depressive disorder 065881148 F41.8 wellbutrin offered, patient declined due to previous negative reaction [id number] Sharon Leonardo [address] [address] 1 07/09/2024 15:58:42 07/09/2024 16:41:08 Lumbago with sciatica 863506942 M54.40 Recommende d ibuprofen and tylenol for pain and inflammati onIs taking Tramadol, advised not to take Tramadol with ibuprofen. Take sparingly. Pt states severe pain, cannot walk or complete a work shift [id number] Sharon Leonardo [address] [address] 1 07/24/2024 15:29:04 07/24/2024 16:17:46 Lumbar spondylosis 069314270 M47.[address] on 07/11/24Pai n is unmanageab le, struggling with daily life.Is taking 1/2 tab of hydrocodon e 5/325 mg Lumbago with sciatica 20 7387992 M54.40 Recommende d ibuprofen and tylenol for pain and inflammati onWas not able to pick-up tramadolPt states severe pain, cannot walk or complete a work shiftHas gone to PT, found this to worsen painLast hydrocodon e at 1 am today, is taking 5/325 1/2 tabs twice dailyTakes diclofenac when working Health Concerns Section Related Observation LastModified by Organization Detai ls LastModified Time None Recorded Concern Status LastModified by Organization Details LastModified Time None Recorded Advance Directives Directive N: Payers Encounter Date Sequence Insurance Name Policy Number Policy Marquez Covered Member ID Marquez Member ID Guarantor Name 10/17/2023 1 [facility] (MEDICAID HMO) [id number] Shruthi Evans [id number] Shruthi Evans 03/10/2024 1 [facility] (MEDICAID HMO) [id number] Shruthi Evans [id number] Shruthi Evans 04/29/2024 1 [facility] (MEDICAID HMO) [id number] 0003 Shruthi Evans [id number] Shruthi Evans 07/09/2024 1 [facility] (MEDICAID HMO) [id number] 0003 Shruthi Evans [id number] Shruthi Evans 07/24/2024 1 [facility] (MEDICAID HMO) [id number] 0003 Shruthi Evans [id number] Shruthi Evans Notes Date Note Type Note Provider Name and Address Organization Details Recorded Time 10/17/2023 text/html Shruthi Llamas i s a 42 year old female here to follow up on anxiety and depression. Shruthi is 184 days sober and has been having a difficult time managing her mental health through her sobriety. She began escitalopram 5 mg PO daily on 06/06/2023, We increased this to 10 mg on 09/26/2023. She is managing well with this dose change. She has hydroxyzine 25 mg for anxiety PRN. She is requiring 50 mg in the morning and one in the evening. She admits that she will also add an occasional benadryl at bedtime to help with anxiety and sleep. She states that she is drinking Redbull throughout the day as well. She has been taking phentermine 15 mg PO daily since June for weight loss. She has lost 21 pounds since starting this medication. Her weight today is 160 pounds. She would like to continue this medication today. Her goal weight is her is 140 pounds. She is doing smaller portions and low carbs. Sharon Leonardo, [facility] [address] [facility], [facility] [address], [place], [address], [employer] 10/17/2023 12:01:51 03/10/2024 text/html Shruthi Slater is a 43 year old female patient here today with concerns of a cyst She has had this cyst for 3 months. She had a surgery in the hospital, then she saw Dr. Ramires at [facility] and has had a cyst drained twice in the office. She states this cyst is continuously draining with green purulent drainage. She has taken Augmentin with no relief. Advised to FU with surgeon again. 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 She feels that sometimes her heart races and she is short of breath. The anxiety is persistent at home and work.Phentermine calms her down.Curious about trying other medications for anxiety.She is currently taking phentermine 30 mg. She has gained 4lbs since her last visit. GAIL Prakash [address], [place], [address], [employer] 04/29/2024 16:29:21 07/09/2024 text/html Shruthi Evans i s a 43 year old female patient here today for pain. Concerns with pain in sacral area. Does note that the day before she the pain began she fell flat on her bottom.She has concerns this is a kidney infection. UA clean. GAIL Prakash [address], [place], [address], [employer] [facility] [employer] 07/09/2024 16:56:58 07/24/2024 text/html Shruthi Evans i s a 43 year old female patient here today for pain. Persistent sacral pain radiating down ITALIA legs.Completed 3 session of PT and finds these too painful to continue with. Is still working but finds this very difficult, cannot take pain medications when she is working.We did a triamcinolone injection on 07/09/24 which she found to increase pain. Sharon Leonardo, [employer]MINIST[employer]ATOR [address] [facility], [facility] [address], [place], [address], [place] [facility] [place] [employer] [facility] 07/24/2024 16:13:19 OBGyn Episode No OBEpisode recorded.
--- OUTSIDE RECORDS SUMMARY | 2024-08-18 07:56 | XMS_ITS | Continuity of Care Document ---
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 [address], [place], [place], [address] , [place]. tel:[phone] PREV VISIT, EST, AGE 18-39 [facility], [address], [place], [place], [address], [place] tel:[phone] [facility] physical (chief complaint) Encounter for general adult medical examination without abnormal findings 2 Sumanth Palacios. [address], [place], [place], [address] , [place]. tel:[phone] OFFICE/OUTPA TIENT VISIT, EST [facility], [address] [place] [place], [address], [place] tel:[phone] [facility] alcohol1 (chief complaint) weight gain1 (chief complaint) HCT (chief complaint) HLP (chief complaint) Generalized Anxiety DisorderAlcohol dependence, in remissionHyperlipid emiaSecondary polycythemiaAbnorma l weight gain 1 Sumanth Palacios. [address], [place], [place], [address] , [place]. tel:[phone] OFFICE/OUTPA TIENT VISIT, [facility], [address], [place], [place], [address], [place] tel:[phone] [facility] Alcohol1 (chief complaint) anxitey1 (chief complaint) GERD1 (chief complaint) Alcohol dependence with intoxication, unspecifiedGenerali zed Anxiety DisorderGastritis, unspecified, without bleeding 1 Sumanth Palacios. [address], [place], [place], [address] , [place]. tel:[phone] OFFICE/OUTPA TIENT VISIT, [facility], [address], [place], [place], [address], [place] tel:[phone] [facility] GERD w/o esophagitisAlcohol dependence, in remissionGeneralize d Anxiety Disorder 1 Sumanth Palacios. [address], [place], [place], [address] , [place]. tel:[phone] [facility], [address], [place], [place], [address], [place] tel:[phone] [facility] anxiety1 (chief complaint) alcohol1 (chief complaint) GERD1 (chief complaint) Generalized Anxiety DisorderAlcohol dependence, in remissionGERD w/o esophagitis 1 Sumanth Palacios. [address], [place], [place], [address] , [place]. tel:[phone] OFFICE/OUTPA TIENT VISIT, [facility], [address], [place], [place], [address], [place] tel:[phone] [facility] anxiety1 (chief complaint) alcohol1 (chief complaint) hirsutism1 (chief complaint) hyponaremi a1 (chief complaint) weight gain1 (chief complaint) HirsutismGeneralize d Anxiety DisorderAlcohol dependence, in remissionAbnormal weight gainHyponatremia 1 Sumanth Palacios. [address], [place], [place], [address] , [place]. tel:[phone] OFFICE/OUTPA TIENT VISIT, [facility], [address], [place], [place], [address], [place] tel:[phone] [facility] alcohol1 (chief complaint) anxiety1 (chief complaint) hirsutism1 (chief complaint) hyponatrem ia1 (chief complaint) HirsutismGeneralize d Anxiety DisorderAlcohol dependence, in remissionHyponatrem ia 1 Sumanth Lin [address], [place], [place], [address] , [place]. tel:[phone] Referring Provider: Vaibhav Esqueda [address], [place], [place], [address]. tel:[phone] OFFICE/OUTPA TIENT VISIT, [facility], [address] [place] [address] [address], [place], [place], [address], [place] tel:[phone] [facility] anxiety1 (chief complaint) hirsutism1 (chief complaint) insomnia1 (chief complaint) HirsutismGeneralize d Anxiety DisorderInsomnia 0 Sumanth Lin [address], [place], [place], [address] , [place]. tel:[phone] Referring Provider: Vaibhav Esqueda [address], [place], [place], [address]. tel:[phone] OFFICE/OUTPA TIENT VISIT, [facility], [address], [place], [place], [address], [place] tel:[phone] [facility] anxiety1 (chief complaint) weight (chief complaint) Abnormal weight gainGeneralized Anxiety Disorder 0 Sumanth Lin [address], [place], [place], [address] , [place]. tel:[phone] Referring Provider: Vaibhav Esqueda [address], [place], [place], [address]. tel:[phone] OFFICE/OUTPA TIENT VISIT, [facility], [address], [place], [place], [address], [place] tel:[phone] [facility] anxiety1 (chief complaint) weight gain1 (chief complaint) Generalized Anxiety DisorderAbnormal weight gain 0 Sumanth Palacios. [address], [place], [place], [address] , [place]. tel:[phone] Referring Provider: Philip Jluio, [address], [place], [place], [address]. tel:[phone] OFFICE/OUTPA TIENT VISIT, [facility], [address], [place], [place], [address], [place] tel:[phone] [facility] HLP (chief complaint) hCT (chief complaint) glucose1 (chief complaint) anxiety1 (chief complaint) weight gain1 (chief complaint) HyperlipidemiaHyper glycemiaSecondary polycythemiaGeneral ized Anxiety DisorderAbnormal weight gain Feb- 0 Sumanth Palacios. [address], [place], [place], [address] , [place]. tel:[phone] Referring Provider: Philip Juloi [address], [place], [place], [address]. tel:[phone] OFFICE/OUTPA TIENT VISIT, [facility], [address], [place], [place], [address], [place] tel:[phone] [facility] anxiety1 (chief complaint) HTN (chief complaint) Generalized Anxiety DisorderAbnormal weight lossHirsutism Jan- 0 Sumanth Palacios. [address], [place], [place], [address] , [place]. tel:[phone] Referring Provider: Philip Julio [address], [place], [place], [address]. tel:[phone] OFFICE/OUTPA TIENT VISIT, [facility], [address], [place], [place], [address], [place] tel:[phone] [facility] anxiety1 (chief complaint) weight loss1 (chief complaint) Generalized Anxiety DisorderAbnormal weight loss 0 0 Sumanth Plaacios. [address], [place], [place], [address] , [place]. tel:[phone] Referring Provider: Philip Julio, [address], [place], [place], [address]. tel:[phone] OFFICE/OUTPA TIENT VISIT, [facility], [address], [place], [place], [address], [place] tel:[phone] [facility] work excuse1 (chief complaint) Fatigue 0 Sumanth Palacios. [address], [place], [place], [address] , [place]. tel:[phone] Referring Provider: Philip Julio, [address], [place], [place], [address]. tel:[phone] OFFICE/OUTPA TIENT VISIT, [facility], [address], [place], [place], [address], [place] tel:[phone] [facility] anxiety1 (chief complaint) weight1 (chief complaint) Abnormal weight gainGeneralized Anxiety Disorder 0 Sumanth Palacios. [address], [place], [place], [address] , [place]. tel:[phone] Referring Provider: Vaibhav Esqueda [address], [place], [place], [address]. tel:[phone] OFFICE/OUTPA TIENT VISIT, [facility], [address], [place], [place], [address], [place] tel:[phone] [facility] HLP (chief complaint) anxiety1 (chief complaint) Generalized Anxiety DisorderHyperlipide caitlyn 0 0 Sumanth Palacios. [address], [place], [place], [address] , [place]. tel:[phone] Referring Provider: Philip Julio [address], [place], [place], [address]. tel:[phone] OFFICE/OUTPA TIENT VISIT, EST [facility], [address], [place], [place], [address], [place] tel:[phone] [facility] anxiety1 (chief complaint) weight gain1 (chief complaint) Abnormal weight gainGeneralized Anxiety Disorder Apr-2 0 Sumanth Palacios. [address], [place], [place], [address] , [place]. tel:[phone] Referring Provider: Philip Julio [address], [place], [place], [address]. tel:[phone] OFFICE/OUTPA TIENT VISIT, [facility], [address], [place], [place], [address], [place] tel:[phone] [facility] anxiety1 (chief complaint) hand numbness1 (chief complaint) Paresthesia of skinGeneralized Anxiety Disorder Aug- 0 Sumanth Palacios. [address], [place], [place], [address] , [place]. tel:[phone] Referring Provider: Vaibhav Esqueda [address], [place], [place], [address]. tel:[phone] OFFICE/OUTPA TIENT VISIT, [facility], [address], [place], [place], [address], [place] tel:[phone] [facility] tingling1 (chief complaint) weight loss1 (chief complaint) anxiety1 (chief complaint) Other muscle spasmParesthesia of skinGeneralized Anxiety DisorderAbnormal weight loss Fe- 0- 0 Sumanth Palacios. [address], [place], [place], [address] , [place]. tel:[phone] Referring Provider: Vaibhav Esqueda [address], [place], [place], [address]. tel:[phone] PREV VISIT, EST, AGE 18-39 [facility], [address], [place], [place], [address], [place] tel:[phone] [facility] Physical (chief complaint) Encntr for general adult medical exam w/o abnormal findings 0 0 Sumanth Palacios. [address], [place], [place], [address] , [place]. [phone] Referring Provider: Vaibhav Esqueda [address], [place], [place], [address]. tel:[phone] OFFICE/OUTPA TIENT VISIT, [facility], [address], [place], [place], [address], [place] tel:[phone] [facility] anxiety1 (chief complaint) weight1 (chief complaint) Abnormal weight gainGeneralized Anxiety Disorder 9 Sumanth Palacios. [address], [place], [place], [address] , [place]. [phone] Referring Provider: Vaibhav Esqueda [address], [place], [place], [address]. tel:[phone] OFFICE/OUTPA TIENT VISIT, [facility], [address], [place], [place], [address], [place] tel:[phone] [facility] weight loss1 (chief complaint) anxiety1 (chief complaint) Abnormal weight lossGeneralized Anxiety Disorder 9 Sumanth Lin [address], [place], [place], [address] , [place]. [phone] Referring Provider: Vaibhav Esqueda [address], [place], [place], [address]. tel:[phone] OFFICE/OUTPA TIENT VISIT, [facility], [address], [place], [place], [address], [place] tel:[phone] [facility] weight loss1 (chief complaint) anxiety1 (chief complaint) Generalized Anxiety DisorderAbnormal weight loss 9 Sumanth Palacios. [address], [place], [place], [address] , [place]. [phone] Referring Provider: Vaibhav Esqueda [address], [place], [place], [address]. tel:[phone] OFFICE/OUTPA TIENT VISIT, [facility], [address], [place], [place], [address], [place] tel:[phone] [facility] fatty liver1 (chief complaint) HLP (chief complaint) MCV (chief complaint) weight loss1 (chief complaint) anxiety1 (chief complaint) HyperlipidemiaAbnor mal weight lossGeneralized Anxiety DisorderFatty liverOther specified disease of bloodHyperglycemia 0 9 Sumanth Palacios. [address], [place], [place], [address] , [place]. tel:[phone] Referring Provider: Vaibhav Esqueda [address], [place], [place], [address]. tel:[phone] OFFICE/OUTPA TIENT VISIT, [facility], [address], [place], [place], [address], [place] tel:[phone] [facility] anxiety1 (chief complaint) LFT (chief complaint) obesity1 (chief complaint) HLP (chief complaint) sleep apnea1 (chief complaint) Liver diseaseHyperlipidem iaSleep apneaGeneralized Anxiety DisorderAbnormal weight gain 9 Sumanth Palacios. [address], [place], [place], [address] , [place]. tel:[phone] Referring Provider: Vaibhav Esqueda [address], [place], [place], [address]. tel:[phone] OFFICE/OUTPA TIENT VISIT, [facility], [address], [place], [place], [address], [place] tel:[phone] [facility] HTN (chief complaint) anxiety1 (chief complaint) LFT (chief complaint) Abnormal weight lossLiver diseaseGeneralized Anxiety Disorder 9 Sumanth Palacios. [address], [place], [place], [address] , [place]. tel:[phone] Referring Provider: Vaibhav Esqueda [address], [place], [place], [address]. tel:[phone] OFFICE/OUTPA TIENT VISIT, [facility], [address], [place], [place], [address], [place] tel:[phone] [facility] weight1 (chief complaint) anxiety1 (chief complaint) lFt (chief complaint) sleep apnea1 (chief complaint) Sleep apneaLiver diseaseGeneralized Anxiety DisorderSecondary polycythemiaHyperli pidemiaAbnormal weight gain 9 Sumanth Palacios. [address], [place], [place], [address] , [place]. tel:[phone] Referring Provider: Vaibhav Esqueda [facility] A, [place], [place], [address]. tel:[phone] OFFICE/OUTPA TIENT VISIT, [facility], [address], [place], [place], [address], [place] tel:[phone] [facility] anxiety1 (chief complaint) weight1 (chief complaint) sleep apnea1 (chief complaint) liver1 (chief complaint) Abnormal weight gainLiver diseaseGeneralized Anxiety DisorderSleep apnea 9 Sumanth Palacios. [address], [place], [place], [address] , [place]. tel:[phone] Referring Provider: Vaibhav Esqueda [address], [place], [place], [address]. tel:[phone] OFFICE/OUTPA TIENT VISIT, [facility], [address], [place], [place], [address], [place] tel:[phone] [facility] HLP (chief complaint) LFT (chief complaint) polycythem ia1 (chief complaint) glucose1 (chief complaint) anxiety1 (chief complaint) HyperlipidemiaLiver diseaseHyperglycemi aSecondary polycythemiaGeneral ized Anxiety DisorderAbnormal weight gain 9 Sumanth Lin [address], [place], [place], [address] , [place]. tel:[phone] Referring Provider: Vaibhav Esqueda [address], [place], [place], [address]. tel:[phone] OFFICE/OUTPA TIENT VISIT, EST [facility], [address], [place], [place], [address], [place] tel:[phone] [facility] GI (chief complaint) Viral infection 9 Sumanth Palacios. [address], [place], [place], [address] , [place]. tel:[phone] Referring Provider: Philip Julio, Vaib[address], [place], [place], [address]. tel:[phone] OFFICE/OUTPA TIENT VISIT, [facility], [facility] [address], [place], [place], [address], [place] tel:[phone] [facility] weight gain1 (chief complaint) anxiety1 (chief complaint) cough1 (chief complaint) insomnia1 (chief complaint) Acute bronchitisInsomniaG eneralized Anxiety DisorderAbnormal weight gainEssential (primary) hypertension 9 Sumanth Palacios. [address], [place], [place], [address] , [place]. tel:[phone] Referring Provider: Vaibhav Esqueda [address], [place], [place], [address]. tel:[phone] PREV VISIT, EST, AGE 18-39 [facility], [address], [place], [place], [address], [place] tel:[phone] [facility] Physical (chief complaint) Encounter for general adult medical exam w abnormal findingsAbnormal weight gainGeneralized Anxiety DisorderOccult blood in fecesEssential (primary) hypertension 8 Sumanth Palacios. [address], [place], [place], [address] , [place]. tel:[phone] Referring Provider: Vaibhav Esqueda [address], [place], [place], [address]. tel:[phone] OFFICE/OUTPA TIENT VISIT, [facility], [address], [place], [place], [address], [place] tel:[phone] [facility] insomnia1 (chief complaint) anxiety1 (chief complaint) sob1 (chief complaint) Generalized Anxiety DisorderAsthmaInsom niaSleep disorder, unspecified 0 7 Sumanth Palacios. [address], [place], [place], [address] , [place]. tel:[phone] Referring Provider: Philip Julio, [address], [place], [place], [address]. tel:[phone] OFFICE/OUTPA TIENT VISIT, [facility], [address], [place], [place], [address], [place] tel:[phone] [facility] anxiety1 (chief complaint) insomnia1 (chief complaint) InsomniaGeneralized Anxiety Disorder 7 Sumanth Palacios. [address], [place], [place], [address] , [place]. tel:[phone] Referring Provider: Philip Julio [address], [place], [place], [address]. tel:[phone] OFFICE/OUTPA TIENT VISIT, [facility], [address], [place], [place], [address], [place] tel:[phone] [facility] back pain1 (chief complaint) HLP (chief complaint) anxiety1 (chief complaint) insomnia1 (chief complaint) HyperlipidemiaBack painGeneralized Anxiety Disorder 7 Sumanth Palacios. [address], [place], [place], [address] , [place]. tel:[phone] Referring Provider: Vaibhav Esqueda [address], [place], [place], [address]. tel:[phone] OFFICE/OUTPA TIENT VISIT, [facility], [address], [place], [place], [address], [place] tel:[phone] [facility] anxiety1 (chief complaint) insomnia1 (chief complaint) marijauna1 (chief complaint) weight loss1 (chief complaint) InsomniaGeneralized Anxiety DisorderCannabis abuse, uncomplicatedAbnorm al weight loss 7 Sumanth Palacios. [address], [place], [place], [address] , [place]. tel:[phone] Referring Provider: Vaibhav Esqueda [address], [place], [place], [address]. tel:[phone] OFFICE/OUTPA TIENT VISIT, [facility], [address], [place], [place], [address], [place] tel:[phone] [facility] anxiety1 (chief complaint) insomnia1 (chief complaint) HLP (chief complaint) Generalized Anxiety DisorderHyperlipide miaInsomniaBody mass index (BMI) 32.0-32.9, adult Fe 7 Sumanth Lin [address], [place], [place], [address] , [place]. tel:[phone] Referring Provider: Vaibhav Esqueda [address], [place], [place], [address]. tel:[phone] OFFICE/OUTPA TIENT VISIT, [facility], [address], [place], [place], [address], [place] tel:[phone] [facility] anxiety1 (chief complaint) insomnia1 (chief complaint) obesity1 (chief complaint) Generalized Anxiety DisorderBody mass index (BMI) 33.0-33.9, adultInsomnia 7 Sumanth Lin [address], [place], [place], [address] , [place]. tel:[phone] Referring Provider: Vaibhav Esqueda [address], [place], [place], [address]. tel:[phone] OFFICE/OUTPA TIENT VISIT, [facility], [address], [place], [address], [place] tel:[phone] [facility] HLP (chief complaint) MCV (chief complaint) toothache1 (chief complaint) anxiety1 (chief complaint) HyperlipidemiaAtypi jaguar facial painOther specified disease of bloodInsomnia 0 6 Sumanth Palacios. [address], [place], [place], [address] , [place]. tel:[phone] Referring Provider: Vaibhav Esqueda [address], [place], [place], [address]. [phone] PREV VISIT, EST, AGE 18-39 [facility], [address], [place], [place], [address], [place] tel:[phone] [facility] PHysical (chief complaint) Encounter for general adult medical exam w abnormal findingsGeneralized anxiety disorderInsomnia 6 Sumanth Palacios. [address], [place], [place], [address] , [place]. tel:[phone] Referring Provider: Vaibhav Esqueda [address] [facility], [place], [place], [address]. tel:[phone] OFFICE/OUTPA TIENT VISIT, EST [facility], [address], [place], [place], [address], [place] tel:[phone] [facility] anxiety1 (chief complaint) hematuria1 (chief complaint) HTN (chief complaint) insomnia1 (chief complaint) Essential (primary) hypertensionHematur ia, unspecifiedGenerali zed anxiety disorderInsomnia 6 Sumanth Lin [address], [place], [place], [address] , [place]. tel:[phone] Referring Provider: Vaibhav Esqueda [address], [place], [address]. [phone] OFFICE/OUTPA TIENT VISIT, EST [facility], [address] [place], [address], [place] tel:[phone] [facility] shoulder pain1 (chief complaint) hematuria (chief complaint) anxiety1 (chief complaint) HematuriaGeneralize d anxiety disorderPain in rt shoulder 6 Sumanth Lin [address], [place], [place], [address] , [place]. tel:[phone] Referring Provider: Philip Julio, [address], [place], [place], [address]. tel:[phone] OFFICE/OUTPA TIENT VISIT, [facility], [address], [place], [place], [address], [place] tel:[phone] [facility] anxiety1 (chief complaint) insomnia1 (chief complaint) Generalized anxiety disorderOther insomnia 0 6 Sumanth Palacios. [address], [place], [place], [address] , [place]. tel:[phone] Referring Provider: Vaibhav Esqueda [address], [place], [place], [address]. tel:[phone] OFFICE/OUTPA TIENT VISIT, [facility], [address], [place], [place], [address], [place] tel:[phone] [facility] Anxiety1 (chief complaint) insomnia1 (chief complaint) fatigue1 (chief complaint) Other insomniaOther fatigueGeneralized anxiety disorder 8 5 Sumanth Palacios. [address], [place], [place], [address] , [place]. tel:[phone] Referring Provider: Vaibhav Esqueda [address], [place], [place], [address]. tel:[phone] OFFICE/OUTPA TIENT VISIT, [facility], [address], [place], [place], [address], [place] tel:[phone] [facility] chest pain1 (chief complaint) anxiety1 (chief complaint) Generalized anxiety disorderHematuria 7 5 Sumanth Palacios. [address], [place], [place], [address] , [place]. tel:[phone] Referring Provider: Vaibhav Esqueda [address], [place], [place], [address]. tel:[phone] OFFICE/OUTPA TIENT VISIT, [facility], [address], [place], [place], [address], [place] tel:[phone] [facility] Anxiety (chief complaint) HLP (chief complaint) hematuria (chief complaint) chest pain (chief complaint) Dietary surveillance and counselingGeneraliz ed anxiety disorderHematuriaHy perlipidemiaChest pain 5 Sumanth Palacios. [address], [place], [place], [address] , [place]. tel:[phone] Referring Provider: Vaibhav Esqueda [address], [place], [place], [address]. tel:[phone] PREV VISIT, EST, AGE 18-39 [facility], [address] [address], [place], [place], [address], [place] tel:[phone] [facility] PHysical (chief complaint) Routine medical examDietary surveillance and counseling 5 Sumanth Palacios. [address], [place], [place], [address] , [place]. tel:[phone] Referring Provider: Vaibhav Esqueda [address], [place], [place], [address]. tel:[phone] OFFICE/OUTPA TIENT VISIT, EST [facility], [address], [place], [place], [address], [place] tel:[phone] [facility] rectal bleeding (chief complaint) anxiety (chief complaint) HTN (chief complaint) HLP (chief complaint) Unspecified essential hypertensionOther and unspecified hyperlipidemiaGener alized anxiety disorderRectal bleedingDietary surveillance and counseling 5 Sumanth Palacios. [address], [place], [place], [address] , [place]. tel:[phone] Referring Provider: Vaibhav Esqueda [address], [place], [place], [address]. tel:[phone] OFFICE/OUTPA TIENT VISIT, EST [facility], [address], [place], [place], [address], [place] tel:[phone] [facility] anxiety (chief complaint) alcohol (chief complaint) Generalized anxiety disorderAlcohol dependence in remission Flash- 3-201 5 Sumanth Palacios. [address], [place], [place], [address] , [place]. tel:[phone] Referring Provider: Vaibhav Esqueda [address], [place], [place], [address]. tel:[phone] OFFICE/OUTPA TIENT VISIT, [facility], [address], [place], [place], [address], [place] tel:[phone] [facility] anxiety (chief complaint) alcohol (chief complaint) Generalized anxiety disorderDepression May-0 6- 5 Sumanth Palacios. [address], [place], [place], [address] , [place]. tel:[phone] Referring Provider: Vaibhav Esqueda [address], [place], [place], [address]. tel:[phone] OFFICE/OUTPA TIENT VISIT, [facility], [address], [place], [place], [address], [place] tel:[phone] [facility] anxiety (chief complaint) HTN (chief complaint) Dietary surveillance and counselingDepressio nGeneralized anxiety disorder Apr-0 6 5 Sumanth Palacios. [address], [place], [address] , [place]. tel:[phone] Referring Provider: Vaibhav Esqueda [address], [place], [place], [address]. tel:[phone] OFFICE/OUTPA TIENT VISIT, [facility], [address], [place], [place], [address], [place] tel:[phone] [facility] anxiety (chief complaint) alcohol (chief complaint) Dietary surveillance and counselingSedative, hypnotic or anxiolytic dependence, unspecifiedOther and unspecified alcohol dependence, episodic drinking behavior Mar-0 9-201 5 Sumanth Palacios. [address], [place], [place], [address] , [place]. tel:[phone] Referring Provider: Vaibhav Esqueda [address], [place], [place], [address]. tel:[phone] OFFICE/OUTPA TIENT VISIT, [facility], [address], [place], [place], [address], [place] tel:[phone] [facility] sick (chief complaint) cardiomyop athy (chief complaint) alcohol (chief complaint) anxiety (chief complaint) Dietary surveillance and counselingOther and unspecified diseases of upper respiratory tractCardiomyopathy , Other PrimaryOther and unspecified alcohol dependence, episodic drinking behaviorGeneralized anxiety disorder 5 Sumanth Palacios. [address], [place], [place], [address] , [place]. [phone] Referring Provider: Vaibhav Esqueda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
--- NOTE | 2024-08-18 08:16 | ED_ITS ---
HPI - General Adult General Chief complaint: Alcohol Stated complaint: ETOH Time Seen by Provider: 08/18/24 08:01 History of Present Illness HPI narrative: 34-year-old female with history of alcohol abuse presented emergency department for alcohol withdrawal. Patient states since May she has been drinking approximately 1/5 a day of whiskey. Patient states she was having some chronic back pain and started drinking alcohol to control the back pain. Patient states that she has had worsening issues with alcoholism since then. Patient has been feeling that she does need to quit and stop drinking approximately 12 hours prior to arrival. Patient reports she has had excessive nausea and vomiting. Patient is anxious at time of evaluation. Patient does have history alcohol withdrawal and has been admitted in our hospital for alcohol withdrawal, patient denies any prior history of alcohol withdrawal seizures. Patient does have history of high blood pressure but does not take medications for this Related Data Home Medications ?Medication ?Instructions ?Recorded ?Confirmed ?Last Taken ?Type naltrexone microspheres 380 mg 380 mg IM MONTHLY 06/05/24 06/05/24 05/26/24 History intramuscular suspension,extended release (Vivitrol) phentermine 37.5 mg capsule 37.5 mg PO DAILY 06/05/24 06/05/24 Unknown History trazodone 50 mg tablet 50 mg PO HS 06/05/24 06/10/24 06/09/24 21:00 History Allergies Allergy/AdvReac Type Severity Reaction Status Date / Time No Known Allergies Allergy Verified 07/11/24 08:27 Review of Systems 2 Review of Systems: All systems reviewed & are unremarkable except as noted in HPI and below PMFSH Past Medical History Medical History Preeclampsia cardiomyopathy Alcohol abuse Depression Surgical History Surgical History History of incision and drainage I&D of perianal abscess on 12/30/23. KM History of section Family History Family History Father Diabetes mellitus Mother Chronic obstructive pulmonary disease Heart disease Grandparent Lung cancer Social History Social History Social History: Surrogate medical decision maker: Shannon Lopez, friend. Code status: Full code. Smoking status: Never smoker Alcohol intake: former Drinks per week: 3 Alcohol use details: Taking Vivitrol injections monthly to stop her drinking. Substance use: never Substance use type: marijuana Other substance usage details: Daily Do You Feel Safe in your Home?: Yes Lack of Transportation: YES Lack of Food: Never True Current Housing: I Have Housing Concerned About Future Housing: No Difficulty Paying Gas/Electric Bills: No Difficulty Paying for Meds: No Currently Unemployed: No Education: High School Diploma/GED Difficulty w/ Childcare or Family Care: No Living arrangements: with family Additional living arrangements comments: Lives in [place]. Has a 14-year-old son. Additional occupation/education comments: Works at [employer]. Spiritual care concerns: No Exam 2 Narrative: APPEARANCE: Ill-appearing HEAD: normocephalic, atraumatic. EYES: PERRLA/EOMI, conjunctivae clear. NOSE: Normal no drainage EARS:TMS clear with good light reflex. THROAT: Pharynx clear, no exudate. NECK: Supple. No adenopathy, no masses. RESPIRATORY: Airway patent, respirations nonlabored. Clear to auscultation bilaterally, no rales, rhonchi, wheezing. CARDIOVASCULAR: Tachycardia ABDOMINAL: Soft, nontender, nondistended, normal bowel sounds MUSCULOSKELETAL: Moves all extremities. Strength/ROM intact, No edema, No calf tenderness. NEURO: Alert. Cranial nerves II through XII intact. Good gait. Good coordination SKIN: Warm, dry. Normal Color PSYCHIATRIC: Anxious affect Course Vital Signs Vital signs: Vital Signs Temperature 97.7 F 08/18/24 08:05 Pulse Rate 120 H 08/18/24 08:05 Respiratory Rate 20 08/18/24 08:05 Blood Pressure 146/102 H 08/18/24 08:05 Pulse Oximetry 100 08/18/24 08:05 Oxygen Delivery Room Air 08/18/24 08:05 Temperature 97.9 F 08/18/24 08:31 Pulse Rate 117 H 08/18/24 17:18 Respiratory Rate 21 H 08/18/24 17:18 Blood Pressure 127/37 L 08/18/24 17:18 Pulse Oximetry 99 08/18/24 17:18 Oxygen Delivery Room Air 08/18/24 08:05 Medical Decision Making MDM Narrative Medical decision making narrative: 43-year-old female presents emergency department for evaluation for nausea vomiting and suspected alcohol withdrawal. Labs are pending. Patient was provided IV Reglan, IV Ativan and 2 L of normal saline for rehydration. After 2 L fluid and 4 mg of Ativan patient is still tremulous and tachycardic. Patient does not feel she is able to be discharged home. Case discussed with hospitalist patient was accepted to the IMU for alcohol withdrawal. Differential Diagnosis Differential Diagnosis: COVID, RSV, influenza, dehydration, alcohol withdrawal, substance abuse Vital Signs Vital Signs: Vital Signs Temperature 97.7 F 08/18/24 08:05 Pulse Rate 120 H 08/18/24 08:05 Respiratory Rate 20 08/18/24 08:05 Blood Pressure 146/102 H 08/18/24 08:05 Pulse Oximetry 100 08/18/24 08:05 Oxygen Delivery Room Air 08/18/24 08:05 Temperature 97.9 F 08/18/24 08:31 Pulse Rate 117 H 08/18/24 17:18 Respiratory Rate 21 H 08/18/24 17:18 Blood Pressure 127/37 L 08/18/24 17:18 Pulse Oximetry 99 08/18/24 17:18 Oxygen Delivery Room Air 08/18/24 08:05 Lab Data Lab results reviewed: Yes I reviewed the patient's lab results. 08/18/24 08:25 08/18/24 08:25 Labs: Lab Results 08/18/24 Range/Units 08:25 WBC 7.8 (4.5-10.0) K/mm3 RBC 5.23 (4.2-5.4) M/mm3 Hgb 17.2 H (12.0-15.0) g/dL Hct 47.6 H (37.0-47.0) % MCV 91.0 (80-100) fl MCH 32.9 (26-34) pg MCHC 36.1 H (32-36) g/dl RDW 13.2 (11.5-14.5) % Plt Count 218 (150-375) k/mm3 MPV 9.6 (7.4-10.4) fl Immature Gran % (Auto) 0.4 (0-0.5) % Neut % (Auto) 56.0 (45.5-73.1) % Lymph % (Auto) 35.6 (18.3-44.2) % Lanier % (Auto) 7.1 (2.6-8.5) % Eos % (Auto) 0.1 (0-4.4) % Baso % (Auto) 0.8 (0.2-1.2) % Lymph # (Auto) 2.76 (0.9-3.2) K/mm3 Lanier # (Auto) 0.6 (0.1-0.6) K/mm3 Eos # (Auto) 0.0 (0-0.3) K/mm3 Baso # (Auto) 0.1 (0.0-0.1) K/mm3 Abs Immat Gran (auto) 0.03 (0.00-0.031) K/mm3 Absolute Neuts (auto) 4.4 (1.3-6.7) K/mm3 Absolute Nucleated RBC 0.000 (0.0-0.012) K/mm3 Nucleated RBC % 0.0 (0.0-0.2) % PT 12.4 (11.1-14.7) Seconds INR 0.9 APTT 24.3 (22.3-36.8) Seconds Sodium 133 L (137-145) mmol/L Potassium 3.3 L (3.4-5.0) mmol/L Chloride 93 L (98-107) mmol/L Carbon Dioxide 29 (22-30) mmol/L Anion Gap 11 (4-12) mmol/L BUN 10 (7-17) mg/dL Creatinine 0.56 L (0.7-1.0) mg/dL Estim Creat Clear Calc 99 ml/min Estimated GFR > 60 (59 - ) Glucose 136 H (65-110) mg/dL Lactic Acid 2.1 H (0.7-2.0) mmol/L Calcium 8.0 L (8.4-10.2) mg/dL Magnesium 1.7 (1.6-2.3) mg/dL Total Bilirubin 0.8 (0.2-1.3) mg/dL AST 40 H (14-36) U/L ALT 21 (6-35) U/L Alkaline Phosphatase 76 (38-126) U/L Total Protein 7.0 (6.3-8.2) g/dL Albumin 3.6 (3.5-5.1) g/dL TSH (Reflex) 1.760 (0.465-4.68) uIU/mL Urine Color Yellow (Yellow) Urine Appearance Clear (Clear) Urine pH 7.0 (5.0-9.0) Ur Specific Ledbetter 1.024 (1.001-1.035) Urine Protein 2+ H (Negative) mg/dL Urine Glucose (UA) Negative (Negative) mg/dL Urine Ketones Trace H (Negative) mg/dL Ur Blood (Man) Negative (Negative) Urine Nitrate Negative (Negative) Urine Bilirubin Negative (Negative) Urine Urobilinogen 1.0 (<2.0) mg/dL Leukocyte Esterase Rfl Negative (Negative) ALFNOSO/UL Urine RBC 3-5 H (0-2) /hpf Urine WBC 6-10 H (0-3) /hpf Ur Squamous Epith Cells Few (Few) /hpf Urine Bacteria Rare /hpf Urine Casts 0-2 Urine Opiates Screen Negative (Negative) Urine Methadone Screen Negative (Negative) Ur Barbiturates Screen Negative (Negative) Ur Phencyclidine Scrn Negative (Negative) Ur Amphetamine Screen Negative (Negative) U Benzodiazepines Scrn Negative (Negative) Urine Cocaine Screen Negative (Negative) U Cannabinoids Screen Positive A (Negative) Ethyl Alcohol 154 (<10) mg/dL Discharge Plan Discharge Clinical Impression: Alcohol withdrawal Patient Disposition: Still a Patient Condition: Serious
--- OUTSIDE RECORDS SUMMARY | 2024-08-18 08:16 | XMS_ITS | CONTINUITY OF CARE DOCUMENT ---
Author Name harshad patricia Address Unknown Organization [facility] Address [address] [place] [address] Phone [phone] Care Team Providers Care Rehabilitation Caseworker Name Role Phone Lucy SANTOYO, Micha Unavailable JANICE SANTOYO, JUSTIN Unavailable JANETTE PIERCE MD Unavailable [phone] INSURANCE PROVIDERS Payer name Policy type / Coverage type [place] [employer] [place] [employer] Medicaid [id number] HEALTHCARE AND FAMILY SERVICES Medicaid 1 [id number]
--- OUTSIDE RECORDS SUMMARY | 2024-08-18 08:16 | XMS_ITS | Continuity of Care Document ---
Author Organization [facility] Address [address] [place] [address] Phone Care Team Providers Care Mop Maker Name Role Phone Philip Julio MD Unavailable [...] Diagnoses Date Provider Providers Copied on Encounter [facility], [address] [employer] [place], [address], tel:[phone] [facility] No Information 2 Sumanth Palacios. [address], [place], [place], [address] , [place]. tel:[phone] PREV VISIT, EST, AGE 18-39 [facility], [address], [place], [place], [address], [place] tel:[phone] [facility] physical (chief complaint) Encounter for general adult medical examination without abnormal findings 2 Sumanth Palacios. [address], [place], [place], [address] , [place]. tel:[phone] OFFICE/OUTPA TIENT VISIT, EST [facility], [address] [place], [address], [place] tel:[phone] [facility] alcohol1 (chief complaint) weight gain1 (chief complaint) HCT (chief complaint) HLP (chief complaint) Generalized Anxiety DisorderAlcohol dependence, in remissionHyperlipid emiaSecondary polycythemiaAbnorma l weight gain 1 Sumanth Palacios. [address], [place], [place], [address] , [place]. tel:[phone] OFFICE/OUTPA TIENT VISIT, [facility], [address], [place], [place], [address], [place] tel:[phone] [facility] Alcohol1 (chief complaint) anxitey1 (chief complaint) GERD1 (chief complaint) Alcohol dependence with intoxication, unspecifiedGenerali zed Anxiety DisorderGastritis, unspecified, without bleeding 1 Sumanth Palacios. [address], [place], [place], [address] , [place]. tel:[phone] OFFICE/OUTPA TIENT VISIT, [facility], [address], [place], [place], [address], [place] tel:[phone] [facility] GERD w/o esophagitisAlcohol dependence, in remissionGeneralize d Anxiety Disorder 1 Sumanth Palacios. [address], [place], [place], [address] , [place]. tel:[phone] [facility], [address], [place], [place], [address], [place] tel:[phone] [facility] anxiety1 (chief complaint) alcohol1 (chief complaint) GERD1 (chief complaint) Generalized Anxiety DisorderAlcohol dependence, in remissionGERD w/o esophagitis 1 Sumanth Palacios. [address], [place], [place], [address] , [place]. tel:[phone] OFFICE/OUTPA TIENT VISIT, [facility], [address], [place], [place], [address], [place] tel:[phone] [facility] anxiety1 (chief complaint) alcohol1 (chief complaint) hirsutism1 (chief complaint) hyponaremi a1 (chief complaint) weight gain1 (chief complaint) HirsutismGeneralize d Anxiety DisorderAlcohol dependence, in remissionAbnormal weight gainHyponatremia 1 Sumanth Palacios. [address], [place], [place], [address] , [place]. tel:[phone] OFFICE/OUTPA TIENT VISIT, [facility], [address], [place], [place], [address], [place] tel:[phone] [facility] alcohol1 (chief complaint) anxiety1 (chief complaint) hirsutism1 (chief complaint) hyponatrem ia1 (chief complaint) HirsutismGeneralize d Anxiety DisorderAlcohol dependence, in remissionHyponatrem ia 1 Sumanth Lin [address], [place], [place], [address] , [place]. tel:[phone] Referring Provider: Vaibhav Esqu[address], [place], [place], [address]. tel:[phone] OFFICE/OUTPA TIENT VISIT, [facility], [address] [place] [address] [address], [place], [place], [address], [place] tel:[phone] [facility] anxiety1 (chief complaint) hirsutism1 (chief complaint) insomnia1 (chief complaint) HirsutismGeneralize d Anxiety DisorderInsomnia 0 Sumanth Lin [address], [place], [place], [address] , [place]. tel:[phone] Referring Provider: Vaibhav Esqu[address], [place], [place], [address]. tel:[phone] OFFICE/OUTPA TIENT VISIT, [facility], [address], [place], [place], [address], [place] tel:[phone] [facility] anxiety1 (chief complaint) weight (chief complaint) Abnormal weight gainGeneralized Anxiety Disorder 0 Sumanth Lin [address], [place], [place], [address] , [place]. tel:[phone] Referring Provider: Vaibhav [address], [place], [place], [address]. tel:[phone] OFFICE/OUTPA TIENT VISIT, [facility], [address], [place], [place], [address], [place] tel:[phone] [facility] anxiety1 (chief complaint) weight gain1 (chief complaint) Generalized Anxiety DisorderAbnormal weight gain 0 Sumanth Palacios. [address], [place], [place], [address] , [place]. tel:[phone] Referring Provider: Philip Julio, [address], [place], [place], [address]. tel:[phone] OFFICE/OUTPA TIENT VISIT, [facility], [address], [place], [place], [address], [place] tel:[phone] [facility] HLP (chief complaint) hCT (chief complaint) glucose1 (chief complaint) anxiety1 (chief complaint) weight gain1 (chief complaint) HyperlipidemiaHyper glycemiaSecondary polycythemiaGeneral ized Anxiety DisorderAbnormal weight gain Feb- 0 Sumanth Palacios. [address], [place], [place], [address] , [place]. tel:[phone] Referring Provider: Philip Julio [address], [place], [place], [address]. tel:[phone] OFFICE/OUTPA TIENT VISIT, [facility], [address], [place], [place], [address], [place] tel:[phone] [facility] anxiety1 (chief complaint) HTN (chief complaint) Generalized Anxiety DisorderAbnormal weight lossHirsutism Jan- 0 Sumanth Palacios. [address], [place], [place], [address] , [place]. tel:[phone] Referring Provider: Philip Julio [address], [place], [place], [address]. tel:[phone] OFFICE/OUTPA TIENT VISIT, [facility], [address], [place], [place], [address], [place] tel:[phone] [facility] anxiety1 (chief complaint) weight loss1 (chief complaint) Generalized Anxiety DisorderAbnormal weight loss 0 0 Sumanth Palacios. [address], [place], [place], [address] , [place]. tel:[phone] Referring Provider: Philip Julio, [address], [place], [place], [address]. tel:[phone] OFFICE/OUTPA TIENT VISIT, [facility], [address], [place], [place], [address], [place] tel:[phone] [facility] work excuse1 (chief complaint) Fatigue 0 Sumanth Palacios. [address], [place], [place], [address] , [place]. tel:[phone] Referring Provider: Philip Julio, [address], [place], [place], [address]. tel:[phone] OFFICE/OUTPA TIENT VISIT, [facility], [address], [place], [place], [address], [place] tel:[phone] [facility] anxiety1 (chief complaint) weight1 (chief complaint) Abnormal weight gainGeneralized Anxiety Disorder 0 Sumanth Palacios. [address], [place], [place], [address] , [place]. tel:[phone] Referring Provider: Vaibhav Esqu[address], [place], [place], [address]. tel:[phone] OFFICE/OUTPA TIENT VISIT, [facility], [address], [place], [place], [address], [place] tel:[phone] [facility] HLP (chief complaint) anxiety1 (chief complaint) Generalized Anxiety DisorderHyperlipide caitlyn 0 0 Sumanth Palacios. [address], [place], [place], [address] , [place]. tel:[phone] Referring Provider: Philip Julio [address], [place], [place], [address]. tel:[phone] OFFICE/OUTPA TIENT VISIT, EST [facility], [address], [place], [place], [address], [place] tel:[phone] [facility] anxiety1 (chief complaint) weight gain1 (chief complaint) Abnormal weight gainGeneralized Anxiety Disorder Apr-2 0 Sumanth Palacios. [address], [place], [place], [address] , [place]. tel:[phone] Referring Provider: Philip Julio [address], [place], [place], [address]. tel:[phone] OFFICE/OUTPA TIENT VISIT, [facility], [address], [place], [place], [address], [place] tel:[phone] [facility] anxiety1 (chief complaint) hand numbness1 (chief complaint) Paresthesia of skinGeneralized Anxiety Disorder Aug- 0 Sumanth Palacios. [address], [place], [place], [address] , [place]. tel:[phone] Referring Provider: Vaibhav Esqu[address], [place], [place], [address]. tel:[phone] OFFICE/OUTPA TIENT VISIT, [facility], [address], [place], [place], [address], [place] tel:[phone] [facility] tingling1 (chief complaint) weight loss1 (chief complaint) anxiety1 (chief complaint) Other muscle spasmParesthesia of skinGeneralized Anxiety DisorderAbnormal weight loss Fe- 0- 0 Sumanth Palacios. [address], [place], [place], [address] , [place]. tel:[phone] Referring Provider: Vaibhav Esqu[address], [place], [place], [address]. tel:[phone] PREV VISIT, EST, AGE 18-39 [facility], [address], [place], [place], [address], [place] tel:[phone] [facility] Physical (chief complaint) Encntr for general adult medical exam w/o abnormal findings 0 0 Sumanth Palacios. [address], [place], [place], [address] , [place]. [phone] Referring Provider: Vaibhav Esqu[address], [place], [place], [address]. tel:[phone] OFFICE/OUTPA TIENT VISIT, [facility], [address], [place], [place], [address], [place] tel:[phone] [facility] anxiety1 (chief complaint) weight1 (chief complaint) Abnormal weight gainGeneralized Anxiety Disorder 9 Sumanth Palacios. [address], [place], [place], [address] , [place]. [phone] Referring Provider: Vaibhav Esqu[address], [place], [place], [address]. tel:[phone] OFFICE/OUTPA TIENT VISIT, [facility], [address], [place], [place], [address], [place] tel:[phone] [facility] weight loss1 (chief complaint) anxiety1 (chief complaint) Abnormal weight lossGeneralized Anxiety Disorder 9 Sumanth Lin [address], [place], [place], [address] , [place]. [phone] Referring Provider: Vaibhav Esqu[address], [place], [place], [address]. tel:[phone] OFFICE/OUTPA TIENT VISIT, [facility], [address], [place], [place], [address], [place] tel:[phone] [facility] weight loss1 (chief complaint) anxiety1 (chief complaint) Generalized Anxiety DisorderAbnormal weight loss 9 Sumanth Palacios. [address], [place], [place], [address] , [place]. [phone] Referring Provider: Vaibhav Esqu[address], [place], [place], [address]. tel:[phone] OFFICE/OUTPA TIENT VISIT, [facility], [address], [place], [place], [address], [place] tel:[phone] [facility] fatty liver1 (chief complaint) HLP (chief complaint) MCV (chief complaint) weight loss1 (chief complaint) anxiety1 (chief complaint) HyperlipidemiaAbnor mal weight lossGeneralized Anxiety DisorderFatty liverOther specified disease of bloodHyperglycemia 0 9 Sumanth Palacios. [address], [place], [place], [address] , [place]. tel:[phone] Referring Provider: Vaibhav Esqu[address], [place], [place], [address]. tel:[phone] OFFICE/OUTPA TIENT VISIT, [facility], [address], [place], [place], [address], [place] tel:[phone] [facility] anxiety1 (chief complaint) LFT (chief complaint) obesity1 (chief complaint) HLP (chief complaint) sleep apnea1 (chief complaint) Liver diseaseHyperlipidem iaSleep apneaGeneralized Anxiety DisorderAbnormal weight gain 9 Sumanth Palacios. [address], [place], [place], [address] , [place]. tel:[phone] Referring Provider: Vaibhav Esqu[address], [place], [place], [address]. tel:[phone] OFFICE/OUTPA TIENT VISIT, [facility], [address], [place], [place], [address], [place] tel:[phone] [facility] HTN (chief complaint) anxiety1 (chief complaint) LFT (chief complaint) Abnormal weight lossLiver diseaseGeneralized Anxiety Disorder 9 Sumanth Palacios. [address], [place], [place], [address] , [place]. tel:[phone] Referring Provider: Vaibhav Esqu[address], [place], [place], [address]. tel:[phone] OFFICE/OUTPA TIENT VISIT, [facility], [address], [place], [place], [address], [place] tel:[phone] [facility] weight1 (chief complaint) anxiety1 (chief complaint) lFt (chief complaint) sleep apnea1 (chief complaint) Sleep apneaLiver diseaseGeneralized Anxiety DisorderSecondary polycythemiaHyperli pidemiaAbnormal weight gain 9 Sumanth Palacios. [address], [place], [place], [address] , [place]. tel:[phone] Referring Provider: Vaibhav Esqu[address], [place], [place], [address]. tel:[phone] OFFICE/OUTPA TIENT VISIT, [facility], [address], [place], [place], [address], [place] tel:[phone] [facility] anxiety1 (chief complaint) weight1 (chief complaint) sleep apnea1 (chief complaint) liver1 (chief complaint) Abnormal weight gainLiver diseaseGeneralized Anxiety DisorderSleep apnea 9 Sumanth Palacios. [address], [place], [place], [address] , [place]. tel:[phone] Referring Provider: Vaibhav Esqu[address], [place], [place], [address]. tel:[phone] OFFICE/OUTPA TIENT VISIT, [facility], [address], [place], [place], [address], [place] tel:[phone] [facility] HLP (chief complaint) LFT (chief complaint) polycythem ia1 (chief complaint) glucose1 (chief complaint) anxiety1 (chief complaint) HyperlipidemiaLiver diseaseHyperglycemi aSecondary polycythemiaGeneral ized Anxiety DisorderAbnormal weight gain 9 Sumanth Lin [address], [place], [place], [address] , [place]. tel:[phone] Referring Provider: Vaibhav Esqu[address], [place], [place], [address]. tel:[phone] OFFICE/OUTPA TIENT VISIT, EST [facility], [address], [place], [place], [address], [place] tel:[phone] [facility] GI (chief complaint) Viral infection 9 Sumanth Palacios. [address], [place], [place], [address] , [place]. tel:[phone] Referring Provider: Philip Julio, [address], [place], [place], [address]. tel:[phone] OFFICE/OUTPA TIENT VISIT, [facility], [facility] [address], [place], [place], [address], [place] tel:[phone] [facility] weight gain1 (chief complaint) anxiety1 (chief complaint) cough1 (chief complaint) insomnia1 (chief complaint) Acute bronchitisInsomniaG eneralized Anxiety DisorderAbnormal weight gainEssential (primary) hypertension 9 Sumanth Palacios. [address], [place], [place], [address] , [place]. tel:[phone] Referring Provider: Vaibhav Esqu[address], [place], [place], [address]. tel:[phone] PREV VISIT, EST, AGE 18-39 [facility], [address], [place], [place], [address], [place] tel:[phone] [facility] Physical (chief complaint) Encounter for general adult medical exam w abnormal findingsAbnormal weight gainGeneralized Anxiety DisorderOccult blood in fecesEssential (primary) hypertension 8 Sumanth Palacios. [address], [place], [place], [address] , [place]. tel:[phone] Referring Provider: Vaibhav Esqu[address], [place], [place], [address]. tel:[phone] OFFICE/OUTPA TIENT VISIT, [facility], [address], [place], [place], [address], [place] tel:[phone] [facility] insomnia1 (chief complaint) anxiety1 (chief complaint) sob1 (chief complaint) Generalized Anxiety DisorderAsthmaInsom niaSleep disorder, unspecified 0 7 Sumanth Palacios. [address], [place], [place], [address] , [place]. tel:[phone] Referring Provider: Philip Julio, [address], [place], [place], [address]. tel:[phone] OFFICE/OUTPA TIENT VISIT, [facility], [address], [place], [place], [address], [place] tel:[phone] [facility] anxiety1 (chief complaint) insomnia1 (chief complaint) InsomniaGeneralized Anxiety Disorder 7 Sumanth Palacios. [address], [place], [place], [address] , [place]. tel:[phone] Referring Provider: Philip Julio [address], [place], [place], [address]. tel:[phone] OFFICE/OUTPA TIENT VISIT, [facility], [address], [place], [place], [address], [place] tel:[phone] [facility] back pain1 (chief complaint) HLP (chief complaint) anxiety1 (chief complaint) insomnia1 (chief complaint) HyperlipidemiaBack painGeneralized Anxiety Disorder 7 Sumanth Palacios. [address], [place], [place], [address] , [place]. tel:[phone] Referring Provider: Vaibhav Esqu[address], [place], [place], [address]. tel:[phone] OFFICE/OUTPA TIENT VISIT, [facility], [address], [place], [place], [address], [place] tel:[phone] [facility] anxiety1 (chief complaint) insomnia1 (chief complaint) marijauna1 (chief complaint) weight loss1 (chief complaint) InsomniaGeneralized Anxiety DisorderCannabis abuse, uncomplicatedAbnorm al weight loss 7 Sumanth Palacios. [address], [place], [place], [address] , [place]. tel:[phone] Referring Provider: Vaibhav Esqu[address], [place], [place], [address]. tel:[phone] OFFICE/OUTPA TIENT VISIT, [facility], [address], [place], [place], [address], [place] tel:[phone] [facility] anxiety1 (chief complaint) insomnia1 (chief complaint) HLP (chief complaint) Generalized Anxiety DisorderHyperlipide miaInsomniaBody mass index (BMI) 32.0-32.9, adult Fe 7 Sumanth Lin [address], [place], [place], [address] , [place]. tel:[phone] Referring Provider: Vaibhav Esqu[address], [place], [place], [address]. tel:[phone] OFFICE/OUTPA TIENT VISIT, [facility], [address], [place], [place], [address], [place] tel:[phone] [facility] anxiety1 (chief complaint) insomnia1 (chief complaint) obesity1 (chief complaint) Generalized Anxiety DisorderBody mass index (BMI) 33.0-33.9, adultInsomnia 7 Sumanth Lin [address], [place], [place], [address] , [place]. tel:[phone] Referring Provider: Vaibhav Esqu[address], [place], [place], [address]. tel:[phone] OFFICE/OUTPA TIENT VISIT, [facility], [address], [place], [place], [address], [place] tel:[phone] [facility] HLP (chief complaint) MCV (chief complaint) toothache1 (chief complaint) anxiety1 (chief complaint) HyperlipidemiaAtypi jaguar facial painOther specified disease of bloodInsomnia 0 6 Sumanth Palacios. [address], [place], [place], [address] , [place]. tel:[phone] Referring Provider: Vaibhav Esqu[address], [place], [place], [address]. tel:[phone] PREV VISIT, EST, AGE 18-39 [facility], [address], [place], [place], [address], [place] tel:[phone] [facility] PHysical (chief complaint) Encounter for general adult medical exam w abnormal findingsGeneralized anxiety disorderInsomnia 6 Sumanth Palacios. [address], [place], [place], [address] , [place]. tel:[phone] Referring Provider: Vaibhav Esqu[address], [place], [place], [address]. tel:[phone] OFFICE/OUTPA TIENT VISIT, EST [facility], [address], [place], [place], [address], [place] tel:[phone] [facility] anxiety1 (chief complaint) hematuria1 (chief complaint) HTN (chief complaint) insomnia1 (chief complaint) Essential (primary) hypertensionHematur ia, unspecifiedGenerali zed anxiety disorderInsomnia 6 Sumanth Lin [address], [place], [place], [address] , [place]. tel:[phone] Referring Provider: Vaibhav Esqu[address], [place], [place], [address]. tel:[phone] OFFICE/OUTPA TIENT VISIT, EST [facility], [address] [place], [address], [place] tel:[phone] [facility] shoulder pain1 (chief complaint) hematuria (chief complaint) anxiety1 (chief complaint) HematuriaGeneralize d anxiety disorderPain in rt shoulder 6 Sumanth Lin [address], [place], [place], [address] , [place]. tel:[phone] Referring Provider: Philip Julio, [address], [place], [place], [address]. tel:[phone] OFFICE/OUTPA TIENT VISIT, [facility], [address], [place], [place], [address], [place] tel:[phone] [facility] anxiety1 (chief complaint) insomnia1 (chief complaint) Generalized anxiety disorderOther insomnia 0 6 Sumanth Palacios. [address], [place], [place], [address] , [place]. tel:[phone] Referring Provider: Vaibhav Esqu[address], [place], [place], [address]. tel:[phone] OFFICE/OUTPA TIENT VISIT, [facility], [address], [place], [place], [address], [place] tel:[phone] [facility] Anxiety1 (chief complaint) insomnia1 (chief complaint) fatigue1 (chief complaint) Other insomniaOther fatigueGeneralized anxiety disorder 8 5 Sumanth Palacios. [address], [place], [place], [address] , [place]. tel:[phone] Referring Provider: Vaibhav Esqu[address], [place], [place], [address]. tel:[phone] OFFICE/OUTPA TIENT VISIT, [facility], [address], [place], [place], [address], [place] tel:[phone] [facility] chest pain1 (chief complaint) anxiety1 (chief complaint) Generalized anxiety disorderHematuria 7 5 Sumanth Palacios. [address], [place], [place], [address] , [place]. tel:[phone] Referring Provider: Vaibhav Esqu[address], [place], [place], [address]. tel:[phone] OFFICE/OUTPA TIENT VISIT, [facility], [address], [place], [place], [address], [place] tel:[phone] [facility] Anxiety (chief complaint) HLP (chief complaint) hematuria (chief complaint) chest pain (chief complaint) Dietary surveillance and counselingGeneraliz ed anxiety disorderHematuriaHy perlipidemiaChest pain 5 Sumanth Palacios. [address], [place], [place], [address] , [place]. tel:[phone] Referring Provider: Vaibhav Esqu[address], [place], [place], [address]. tel:[phone] PREV VISIT, EST, AGE 18-39 [facility], [address], [place], [place], [address], [place] tel:[phone] [facility] PHysical (chief complaint) Routine medical examDietary surveillance and counseling 5 Sumanth Palacios. [address], [place], [place], [address] , [place]. tel:[phone] Referring Provider: Vaibhav Esqu[address], [place], [place], [address]. tel:[phone] OFFICE/OUTPA TIENT VISIT, EST [facility], [address], [place], [place], [address], [place] tel:[phone] [facility] rectal bleeding (chief complaint) anxiety (chief complaint) HTN (chief complaint) HLP (chief complaint) Unspecified essential hypertensionOther and unspecified hyperlipidemiaGener alized anxiety disorderRectal bleedingDietary surveillance and counseling 5 Sumanth Palacios. [address], [place], [place], [address] , [place]. tel:[phone] Referring Provider: Vaibhav Esqu[address], [place], [place], [address]. tel:[phone] OFFICE/OUTPA TIENT VISIT, EST [facility], [address], [place], [place], [address], [place] tel:[phone] [facility] anxiety (chief complaint) alcohol (chief complaint) Generalized anxiety disorderAlcohol dependence in remission Flash- 3-201 5 Sumanth Palacois. [address], [place], [address] , [place]. tel:[phone] Referring Provider: Vaibhav Esqu[address], [place], [place], [address]. tel:[phone] OFFICE/OUTPA TIENT VISIT, [facility], [address], [place], [id number], [place] tel:[phone] [facility] anxiety (chief complaint) alcohol (chief complaint) Generalized anxiety disorderDepression May-0 6- 5 Sumanth Palacios. [address], [place], [place], [address] , [place]. tel:[phone] Referring Provider: Vaibhav Esqu[address], [place], [place], [address]. tel:[phone] OFFICE/OUTPA TIENT VISIT, [facility], [address], [place], [place], [address], [place] tel:[phone] [facility] anxiety (chief complaint) HTN (chief complaint) Dietary surveillance and counselingDepressio nGeneralized anxiety disorder Apr-0 6 5 Sumanth Palacios. [address], [place], [place], [address] , [place]. tel:[phone] Referring Provider: Vaibhav Esqu[address], [place], [place], [address]. tel:[phone] OFFICE/OUTPA TIENT VISIT, [facility], [address], [place], [place], [address], [place] tel:[phone] [facility] anxiety (chief complaint) alcohol (chief complaint) Dietary surveillance and counselingSedative, hypnotic or anxiolytic dependence, unspecifiedOther and unspecified alcohol dependence, episodic drinking behavior Mar-0 9-201 5 Sumanth Palacios. [address], [place], [place], [address] , [place]. tel:[phone] Referring Provider: Vaibhav Esqu[address], [place], [place], [address]. tel:[phone] OFFICE/OUTPA TIENT VISIT, [facility], [address], [place], [place], [address], [place] tel:[phone] [facility] sick (chief complaint) cardiomyop athy (chief complaint) alcohol (chief complaint) anxiety (chief complaint) Dietary surveillance and counselingOther and unspecified diseases of upper respiratory tractCardiomyopathy , Other PrimaryOther and unspecified alcohol dependence, episodic drinking behaviorGeneralized anxiety disorder 5 Sumanth Palacios. [address], [place], [place], [address] , [place]. [phone] Referring Provider: Vaibhav Esqu[address], [place], [place], [address]. tel:[phone] OFFICE/OUTPA TIENT VISIT, [facility], [address], [place], [place], [address], [place] tel:[phone] [facility] HTN (chief complaint) alcohol abuse (chief complaint) anxiety (chief complaint) Dietary surveillance and counselingCardiomyo oscar, Other PrimaryHypertension , UnspecifiedOther and unspecified alcohol dependence, episodic drinking behaviorGeneralized anxiety disorder 5 Sumanth Palacios. [address], [place], [place], [address] , [place]. [phone] Referring Provider: Vaibhav Esqu[address], [place], [place], [address]. tel:[phone] OFFICE/OUTPA TIENT VISIT, [facility], [address], [place], [place], [address], [place] tel:[phone] [facility] alcohol (chief complaint) anxiety (chief complaint) HLP (chief complaint) Generalized anxiety disorderOther and unspecified hyperlipidemiaOther and unspecified alcohol dependence, unspecified drinking behaviorDietary surveillance and counseling 4 Sumanth Palacios. [address], [place], [place], [address] , [place]. [phone] Referring Provider: Philip Julio, [address], [place], [place], [address]. tel:[phone] OFFICE/OUTPA TIENT VISIT, [facility], [address], [place], [place], [address], [place] tel:[phone] [facility] insomnia (chief complaint) HTN (chief complaint) anxiety (chief complaint) cardiomyop athy (chief complaint) Dietary surveillance and counselingHypertens ion, UnspecifiedGenerali zed anxiety disorderCardiomyopa thy, Other Primary 4 Sumanth Palacios. [address], [place], [place], [address] , [place]. [phone] Referring Provider: Vaibhav Esqu[address], [place], [place], [address]. tel:[phone] OFFICE/OUTPA TIENT VISIT, [facility], [address], [place], [place], [address], [place] tel:[phone] [facility] HTN (chief complaint) anxiety (chief complaint) viral infection (chief complaint) insomnia (chief complaint) Dietary surveillance and counselingHypertens ion, UnspecifiedInsomnia , OtherViral Infection, UnspecifiedGenerali zed anxiety disorder 4 Sumanth Palacios. [address], [place], [place], [address] , [place]. [phone] Referring Provider: Vaibhav Esqu[address], [place], [place], [address]. tel:[phone] OFFICE/OUTPA TIENT VISIT, [facility], [address], [place], [place], [address], [place] tel:[phone] [facility] anxiety (chief complaint) HTN (chief complaint) Dietary surveillance and counselingHypertens ion, UnspecifiedGenerali zed anxiety disorder 4 Sumanth Palacios. [address], [place], [place], [address] , [place]. [phone] Referring Provider: Philip Julio [address], [place], [place], [address]. tel:[phone] PREV VISIT, EST, AGE 18-39 [facility], [address], [place], [place], [address], [place] tel:[phone] [facility] Physical (chief complaint) Dietary surveillance and counselingRoutine Medical ExamRoutine Medical Exam 4 Sumanth Palacios. [address], [place], [address] , [place]. [phone] Referring Provider: Vaibhav Esqu[address], [place], [place], [address]. tel:[phone] OFFICE/OUTPA TIENT VISIT, [facility], [address], [place], [place], [address], [place] tel:[phone] [facility] anxiety (chief complaint) sick (chief complaint) HTN (chief complaint) Generalized anxiety disorderAcute upper respiratory infections of other multiple sitesHypertension, Unspecified 4 Sumanth Palacios. [address], [place], [address] , [place]. [phone] Referring Provider: Vaibhav Esqu[address], [place], [place], [address]. tel:[phone] OFFICE/OUTPA TIENT VISIT, EST [facility], [address], [place], [place], [address], [place] tel:[phone] [facility] back pain (chief complaint) anxiety (chief complaint) weight gain (chief complaint) Dietary surveillance and counselingLumbagoGe neralized anxiety disorderObesity 4 Sumanth Palacios. [address], [place], [place], [address] , [place]. tel:[phone] Referring Provider: Vaibhav Esqu[address], [place], [place], [address]. tel:[phone] OFFICE/OUTPA TIENT VISIT, EST [facility], [address], [place], [place], [address], [place] tel:[phone] [facility] tailbone (chief complaint) anxiety (chief complaint) abdominal pain (chief complaint) Generalized anxiety disorderAbdominal PainLumbagoDietary surveillance and counseling 4 Sumanth Palacios. [address], [place], [place], [address] , [place]. tel:[phone] Referring Provider: Philip Julio, [address], [place], [place], [address]. tel:[phone] OFFICE/OUTPA TIENT VISIT, [facility], [address], [place], [place], [address], [place] [phone] [facility] anxiety (chief complaint) tootheache (chief complaint) Dietary surveillance and counselingAtypical face painGeneralized anxiety disorderMajor depressive affective disorder, single episode, mild degree 4 Sumanth Palacios. [address], [place], [place], [address] , [place]. tel:[phone] Referring Provider: Philip Julio [address], [place], [place], [address]. tel:[phone] OFFICE/OUTPA TIENT VISIT, [facility], [address], [place], [place], [address], [place] tel:[phone] [facility] anxiety (chief complaint) Dietary surveillance and counselingGeneraliz ed anxiety disorderMajor depressive affective disorder, single episode, mild degree 3 Sumanth Palacios. [address], [place], [place], [address] , [place]. tel:[phone] Referring Provider: Philip Julio, [address], [place], [place], [address]. tel:[phone] OFFICE/OUTPA TIENT VISIT, [facility], [address], [place], [place], [address], [place] tel:[phone] [facility] anxiety (chief complaint) frequent bowel movement (chief complaint) Dietary surveillance and counselingGeneraliz ed anxiety disorderMajor depressive affective disorder, single episode, mild degree 3 Sumanth Palacios. [address], [place], [place], [address] , [place]. tel:[phone] Referring Provider: Philip Julio, [address], [place], [place], [address]. tel:[phone] OFFICE/OUTPA TIENT VISIT, [facility], [address], [place], [place], [address], [place] tel:[phone] [facility] anxiety (chief complaint) Dietary surveillance and counselingGeneraliz ed anxiety disorderMajor depressive affective disorder, single episode, mild degree 3 Sumanth Palacios. [address], [place], [place], [address] , [place]. [phone] Referring Provider: Philip Julio, [address], [place], [place], [address]. tel:[phone] OFFICE/OUTPA TIENT VISIT, [facility], [address], [place], [place], [address], [place] tel:[phone] [facility] anxiety (chief complaint) Dietary surveillance and counselingGeneraliz ed anxiety disorderMajor depressive affective disorder, single episode, mild degree 3 Sumanth Palacios. [address], [place], [place], [address] , [place]. [phone] Referring Provider: Philip Julio [address], [place], [place], [address]. tel:[phone] OFFICE/OUTPA TIENT VISIT, [facility], [address], [place], [place], [address], [place] tel:[phone] [facility] Sinus (chief complaint) Dietary surveillance and counselingAcute frontal sinusitis 3 Sumanth Palacios. [address], [place], [place], [address] , [place]. [phone] Referring Provider: Philip Julio [address], [place], [place], [address]. tel:[phone] OFFICE/OUTPA TIENT VISIT, EST [facility], [address], [place], [place], [address], [place] tel:[phone] [facility] Anxiety (chief complaint) headache (chief complaint) Dietary surveillance and counselingGeneraliz ed anxiety disorderMajor depressive affective disorder, single episode, mild degree 3 Sumanth Palacios. [address], [place], [place], [address] , [place]. tel:[phone] Referring Provider: Philip Julio, [address], [place], [place], [address]. tel:[phone] PREV VISIT, EST, AGE 18-39 [facility], [address], [place], [place], [address], [place] tel:[phone] [facility] Physical (chief complaint) Dietary surveillance and counselingRoutine Medical ExamRoutine Medical Exam 3 Sumanth Palacios. [address], [place], [place], [address] , [place]. tel:[phone] Referring Provider: Vaibhav Esqu[address], [place], [place], [address]. tel:[phone] OFFICE/OUTPA TIENT VISIT, EST [facility], [address], [place], [place], [address], [place] tel:[phone] [facility] anxiety (chief complaint) Dietary surveillance and counselingGeneraliz ed anxiety disorderMajor depressive affective disorder, single episode, mild degree 3 Sumanth Palacios. [address], [place], [place], [address] , [place]. tel:[phone] Referring Provider: Vaibhav Esqu[address], [place], [place], [address]. tel:[phone] OFFICE/OUTPA TIENT VISIT, EST [facility], [address], [place], [place], [address], [place] tel:[phone] [facility] anxiety (chief complaint) Dietary surveillance and counselingGeneraliz ed anxiety disorder 3 Sumanth Palacios. [address], [place], [address] , [place]. tel:[phone] Referring Provider: Philip Julio, [address], [place], [place], [address]. tel:[phone] OFFICE/OUTPA TIENT VISIT, [facility], [address], [place], [place], [address], [place] tel:[phone] [facility] anxiety (chief complaint) Dietary surveillance and counselingGeneraliz ed anxiety disorder 3 Sumanth Palacios. [address], [place], [place], [address] , [place]. tel:[phone] Referring Provider: Philip Julio, [address], [place], [place], [address]. tel:[phone] OFFICE/OUTPA TIENT VISIT, [facility], [address], [place], [address], [place] tel:[phone] [facility] anxiety (chief complaint) HTN (chief complaint) Obeisty (chief complaint) Hypertension, UnspecifiedGenerali zed anxiety disorderObesity 3 Sumanth Palacios. [address], [place], [place], [address] , [place]. tel:[phone] Referring Provider: Vaibhav Esqu[address], [place], [place], [address]. tel:[phone] OFFICE/OUTPA TIENT VISIT, [facility], [address], [place], [place], [address], [place] tel:[phone] [facility] HTN (chief complaint) Dietary surveillance and counselingHypertens ion, UnspecifiedCardiomy opathy, Other Primary 3 Sumanth Palacios. [address], [place], [place], [address] , [place]. tel:[phone] Referring Provider: Philip Julio, [address], [place], [place], [address]. tel:[phone] OFFICE/OUTPA TIENT VISIT, [facility], [address], [place], [place], [address], [place] tel:[phone] [facility] anxiety (chief complaint) toothache (chief complaint) Dietary surveillance and counselingGeneraliz ed anxiety disorderMajor depressive affective disorder, single episode, mild degreeHypertension, Unspecified Fe 3 Sumanth Palacios. [address], [place], [place], [address] , [place]. tel:[phone] Referring Provider: Vaibhav Esqu[address], [place], [place], [address]. tel:[phone] OFFICE/OUTPA TIENT VISIT, [facility], [address], [place], [place], [address], [place] tel:[phone] [facility] toothache (chief complaint) anxiety (chief complaint) Dietary surveillance and counselingHypertens ion, UnspecifiedGenerali zed anxiety disorderAtypical face pain 3 Sumanth Palacios. [address], [place], [place], [address] , [place]. tel:[phone] Referring Provider: Vaibhav Esqu[address], [place], [place], [address]. tel:[phone] OFFICE/OUTPA TIENT VISIT, [facility], [address], [place], [place], [address], [place] tel:[phone] [facility] URI (chief complaint) toothache (chief complaint) anxiety (chief complaint) Dietary surveillance and counselingAcute upper respiratory infections of other multiple sitesAtypical face painGeneralized anxiety disorder 2 Sumanth Palacios. [address], [place], [place], [address] , [place]. tel:[phone] Referring Provider: Vaibhav Esqu[address], [place], [place], [address]. tel:[phone] OFFICE/OUTPA TIENT VISIT, [facility], [address], [place], [place], [address], [place] tel:[phone] [facility] ADD (chief complaint) anxiety (chief complaint) toothache (chief complaint) Dietary surveillance and counselingGeneraliz ed anxiety disorderAttention deficit disorder of childhood without mention of hyperactivityAtypic al face pain 2 Sumanth Palacios. [address], [place], [address] , [place]. tel:[phone] Referring Provider: Vaibhav Esqu[address], [place], [place], [address]. tel:[phone] OFFICE/OUTPA TIENT VISIT, [facility], [address], [place], [place], [address], [place] tel:[phone] [facility] asthma (chief complaint) anxiety (chief complaint) ADD (chief complaint) jaw pain (chief complaint) Dietary surveillance and counselingAsthmaAtt ention deficit disorder of childhood without mention of hyperactivityGenera lized anxiety disorder 2 Sumanth Palacios. [address], [place], [place], [address] , [place]. tel:[phone] Referring Provider: Vaibhav Esqueda [address], [place], [place], [address]. tel:[phone] Family History Family Member Type Diagnosis Age [...] relapse episode and she was admitted to [facility] recently for stabilization. She is off campral [...] she relapsed in alcohol. She went to [facility] and was admitted for detox. Pt has [...] deal with at work. 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 Patient denies any [...] and holding heavy trays while working at [employer]. Pt states that she notices some burning [...]
[2024-08-18] MEDS: SODIUM CHLORIDE 0.9% IV 1,000 ML 999 ML IV CONT ×2 (08:20→08:21)
[2024-08-18] MEDS: LORazepam INJ (*CRX) 2 MG/ML VIAL IV PUSH ×2 (08:21→10:37)
[2024-08-18] MEDS: METOCLOPRAMIDE HCL INJ 10 MG/2 ML VIAL IV PUSH (08:21)
[2024-08-18 08:38] LABS: Basophils Absolute Auto 0.1 K/mm3 (0.0-0.1); Basophils Percent Auto 0.8 % (0.2-1.2); Eosinophils Percent Auto 0.1 % (0-4.4); Hematocrit 47.6 % (37.0-47.0); Hemoglobin 17.2 g/dL (12.0-15.0); Immature Granulocyte Absolute 0.03 K/mm3 (0.00-0.031); Immature Granulocyte Percent A 0.4 % (0-0.5); Lymphocytes Absolute Auto 2.76 K/mm3 (0.9-3.2); Lymphocytes Percent Auto 35.6 % (18.3-44.2); Mean Corpuscular HGB Conc 36.1 g/dl (32-36); Mean Corpuscular Hemoglobin 32.9 pg (26-34); Mean Platelet Volume 9.6 fl (7.4-10.4); Monocytes Absolute Auto 0.6 K/mm3 (0.1-0.6); Monocytes Percent Auto 7.1 % (2.6-8.5); Neutrophils Absolute Auto 4.4 K/mm3 (1.3-6.7); Platelet Count Result 218 k/mm3 (150-375); Red Blood Count 5.23 M/mm3 (4.2-5.4); Red Cell Distribution Width 13.2 % (11.5-14.5); White Blood Count 7.8 K/mm3 (4.5-10.0)
[2024-08-18 08:43] LABS: Add Urine Microscopic? YES; Appearance Urine Clear (Clear); Bacteria Urine Rare /hpf; Bilirubin Urine Negative (Negative); Blood Urine Negative (Negative); Color Urine Yellow (Yellow); Glucose Urine UA Negative (Negative); Ketones Urine Trace mg/dL (Negative); Leukocyte Esterase Ur Negative LEU/UL (Negative); Nitrate Urine Negative (Negative); Non Pathogenic Casts 0-2; Protein Urine 2+ mg/dL (Negative); Specific Grav Ur 1.024 (1.001-1.035); Squamous Epithelial Cell Urine Few /hpf (Few)
[2024-08-18 08:53] LABS: Lactic Acid Reflex 2.1 mmol/L (0.7-2.0)
--- NOTE | 2024-08-18 09:04 | ECG_ITS ---
Test Date: 2024-08-18 10:26:06 Measurements Intervals [place] Rate: 99 P: 62 NE: 141 QRS: 53 QRSD: 81 T: 46 QT: 347 QTc: 446 Interpretive Statements SINUS RHYTHM BORDERLINE ST ABNORMALITY- ANTEROLAT/INF LEADS BASELINE ARTIFACT- I, II, AVR BORDERLINE ECG No previous ECG available for comparison Electronically Signed On 08-18-2024 10:35:46 [employer]UL[employer]ER OPERATOR by Chavo Solo D.O.
[2024-08-18 09:07] LABS: INR 0.9; Prothrombin Time 12.4 Seconds (11.1-14.7)
[2024-08-18 09:08] LABS: Alanine Aminotransferase 21 U/L (6-35); Albumin Level 3.6 g/dL (3.5-5.1); Alkaline Phosphatase 76 U/L (38-126); Anion Gap 11 mmol/L (4-12); Aspartate Amino Transferase 40 U/L (14-36); Bilirubin,Total 0.8 mg/dL (0.2-1.3); Blood Urea Nitrogen 10 mg/dL (7-17); Carbon Dioxide 29 mmol/L (22-30); Chloride 93 mmol/L (98-107); Estimated CRCL calculation 99 ml/min; Estimated Glomerular Filt Rate > 60; Glucose 136 mg/dL (65-110); Magnesium 1.7 mg/dL (1.6-2.3); Partial Thromboplastin Time 24.3 Seconds (22.3-36.8); Potassium 3.3 mmol/L (3.4-5.0); Sodium 133 mmol/L (137-145)
[2024-08-18 09:55] LABS: Amphetamine Screen Urine Negative (Negative); Barbiturate Screen Urine Negative (Negative); Benzodiazepines Screen Urine Negative (Negative); Cannabinoid Screen Urine Positive (Negative); Cocaine Screen Urine Negative (Negative); Ethanol 154 mg/dL (<10); Methadone Screen Urine Negative (Negative); Opiate Screen Urine Negative (Negative); Phencyclidine Screen Urine Negative (Negative)
[2024-08-18] MEDS: SODIUM CHLORIDE 0.9% IV 1,000 ML 125 ML IV CONT ×2 (10:38→21:59)
[2024-08-18 11:18] LABS: Glucose Point of Care 93 mg/dl (65-105)
[2024-08-18 11:34] LABS: Reflex Lactic Acid Yes or No Add Lactic
[2024-08-18 12:52] LABS: Lactic Acid 2.2 mmol/L (0.7-2.0)
--- NOTE | 2024-08-18 14:47 | P.HP_ITS ---
H&P: HPI History of Present Illness Date/Time: 08/18/24 14:47 Chief Complaint: Vomiting, abd pain and Tremors Narrative: 43 y o Female with PMH of HTN and alcohol abuse who [facility] ER on account of VOmiting, abd pain and tremors. Patient reported she drinks a 6th whiskey daily and then wanted to stop drinking and her last Alcohol drink was a day prior to presentation. She noted she started having tremors following by vomiting and abd pain. Denies any diarrhea, chest pain, SOB, dysuria, loss of consciousness and focal weakness. ER eval notable for HR 120, BP 146/102, saturating 100% on room air. labs notable for Na 133, K 3.3 and lactic acid 2.2, UDS positive for cannabinoids CXR no acute changes I ordered stat CT AP for vomiting and diarrhea Review of Systems Review of Systems: All other systems were reviewed and negative except as noted in the HPi above PMFSH Past Medical History Medical History Preeclampsia cardiomyopathy Alcohol abuse Depression Surgical History Surgical History History of incision and drainage I&D of perianal abscess on 12/30/23. KM History of section Family History Family History Father Diabetes mellitus Mother Chronic obstructive pulmonary disease Heart disease Grandparent Lung cancer Social History Social History Social History: Surrogate medical decision maker: Shannon Lopez, friend. Code status: Full code. Smoking status: Never smoker Alcohol intake: former Drinks per week: 3 Alcohol use details: Taking Vivitrol injections monthly to stop her drinking. Substance use: never Substance use type: marijuana Other substance usage details: Daily Do You Feel Safe in your Home?: Yes Lack of Transportation: YES Lack of Food: Never True Current Housing: I Have Housing Concerned About Future Housing: No Difficulty Paying Gas/Electric Bills: No Difficulty Paying for Meds: No Currently Unemployed: No Education: High School Diploma/GED Difficulty w/ Childcare or Family Care: No Living arrangements: with family Additional living arrangements comments: Lives in [place]. Has a 14-year-old son. Additional occupation/education comments: Works at [employer]. Spiritual care concerns: No Meds Home Medications and Allergies Home Medications ?Medication ?Instructions ?Recorded ?Confirmed ?Type naltrexone microspheres 380 mg 380 mg IM MONTHLY 06/05/24 06/05/24 History intramuscular suspension,extended release (Vivitrol) phentermine 37.5 mg capsule 37.5 mg PO DAILY 06/05/24 06/05/24 History trazodone 50 mg tablet 50 mg PO HS 06/05/24 06/10/24 History tramadol 50 mg tablet 50 mg PO Q6H PRN pain #20 tabs 06/20/24 Rx diclofenac potassium 50 mg tablet 50 mg PO TID PRN pain #30 tabs 07/11/24 Rx hydrocodone 5 mg-acetaminophen 325 1 tablet PO Q6H PRN pain 3 days 07/11/24 Rx mg tablet #12 tabs orphenadrine citrate 100 mg 100 mg PO Q12H PRN muscle pain #30 07/11/24 Rx tablet,extended release tabs Allergies Allergy/AdvReac Type Severity Reaction Status Date / Time No Known Allergies Allergy Verified 07/11/24 08:27 Vital Signs Vital Signs - 24 hr 08/18/24 08:05 08/18/24 08:31 08/18/24 08:46 Temperature 97.7 F 97.9 F Pulse Rate 120 H 108 H 107 H Respiratory Rate 20 18 18 Blood Pressure 146/102 H 136/94 H 141/93 H Pulse Oximetry 100 98 100 Oxygen Delivery Room Air 08/18/24 08:47 08/18/24 09:00 08/18/24 09:01 Temperature Pulse Rate 109 H 100 101 H Respiratory Rate 21 H 17 14 Blood Pressure 155/103 H Pulse Oximetry 100 100 Oxygen Delivery 08/18/24 09:15 08/18/24 09:16 08/18/24 09:30 Temperature Pulse Rate 103 H 104 H 108 H Respiratory Rate 17 14 17 Blood Pressure 149/106 H Pulse Oximetry 100 100 Oxygen Delivery 08/18/24 09:31 08/18/24 09:45 08/18/24 09:46 Temperature Pulse Rate 109 H 109 H 110 H Respiratory Rate 19 17 18 Blood Pressure 138/96 H 162/106 H Pulse Oximetry 100 99 100 Oxygen Delivery 08/18/24 10:31 08/18/24 11:04 08/18/24 11:15 Temperature Pulse Rate 106 H 96 100 Respiratory Rate 20 19 21 H Blood Pressure 153/113 H Pulse Oximetry 97 100 97 Oxygen Delivery 08/18/24 11:16 08/18/24 11:30 08/18/24 11:31 Temperature Pulse Rate 104 H 104 H 103 H Respiratory Rate 19 19 18 Blood Pressure 166/109 H 154/102 H Pulse Oximetry 100 Oxygen Delivery Exam Narrative: General: alert and comfortable Eyes: EOMI, PERRLA ENNT External ears normal, Neck is supple, no masses, Respiratory systems: Clear to auscultation Cardiovascular S1, S2, normal rhythm, no murmur, rub, or gallop; no thrill or palpable murmurs on palpation. Gastrointestinal: soft, epigastric tenderness, and non-distended abdomen with no masses; BS present Skin: no rash, lesions, ulcerations, subcutaneous nodules or induration Musculoskeletal: no abnormality and no tenderness, normal ROM Neurologic: Alert and oriented x3, non focal Mental Status Exam: normal affect H&P: Results Labs Labs: Short CBC 08/18/24 Range/Units 08:25 WBC 7.8 (4.5-10.0) K/mm3 Hgb 17.2 H (12.0-15.0) g/dL Hct 47.6 H (37.0-47.0) % Plt Count 218 (150-375) k/mm3 BMP 08/18/24 08:25 Sodium 133 L Potassium 3.3 L Chloride 93 L Carbon Dioxide 29 BUN 10 Creatinine 0.56 L Glucose 136 H Calcium 8.0 L Liver Function 08/18/24 Range/Units 08:25 Total Bilirubin 0.8 (0.2-1.3) mg/dL AST 40 H (14-36) U/L ALT 21 (6-35) U/L Alkaline Phosphatase 76 (38-126) U/L Albumin 3.6 (3.5-5.1) g/dL Urine 08/18/24 Range/Units 08:25 Urine Color Yellow (Yellow) Urine Appearance Clear (Clear) Urine pH 7.0 (5.0-9.0) Ur Specific [place] 1.024 (1.001-1.035) Urine Protein 2+ H (Negative) mg/dL Urine Glucose (UA) Negative (Negative) mg/dL Assessment and Plan Assessment and plan (1) Alcohol withdrawal: Code(s): F10.239 - Alcohol dependence with withdrawal, unspecified Status: Acute (2) Alcohol abuse: Code(s): F10.10 - Alcohol abuse, uncomplicated Status: Acute (3) Nausea and vomiting: Code(s): R11.2 - Nausea with vomiting, unspecified Status: Acute Plan Alcohol abuse and withdrawal Patient presented with tremors and Vomiting Drinks a 6th of whiskey daily however, last alcohol drink was 2/7 Continue Banana bag, then daily folic acid and thiamine monitor Abd pain and vomiting R/o Pancreatitis vs SBO CT AP, and lipase ordered continue IVF and follow up with CT AP results PRN pain controla dn ZOfran Hypertension Latest BP 154/102 Lisinopril 5mg DVT prophylaxis on Sq Lovenox
[2024-08-18] MEDS: THIAMINE HCL INJ 100 MG, FOLIC ACID INJ 1 MG, MAGNESIUM SULFATE INJ 1 GM, MULTIVITAMINS... 125 MG IV CONT (15:59)
[2024-08-18] MEDS: lisinopriL 5 MG TABLET PO (16:07)
[2024-08-18] MEDS: ONDANSETRON INJ 4 MG/2 ML VIAL IV PUSH (17:13)
[2024-08-18 17:16] LABS: Lipase 80 U/L (23-300)
[2024-08-18 17:28] LABS: Glucose Point of Care 134 mg/dl (65-105)
[2024-08-18] MEDS: chlordiazePOXIDE (*CRX) 25 MG CAPSULE PO (17:46)
--- NOTE | 2024-08-18 18:10 | PC.NURSE ---
pt was trying to change her clothes and states that her IV just slipped right out. attempt made to obtain iv access again.
[2024-08-18] MEDS: levoFLOXacin 750 MG/D5W 150 ML 750 MG/150 ML BAG 100 MG IVPB (19:19)
[2024-08-18] MEDS: metroNIDAZOLE 500 MG/ISO 100ML 500 MG/100 ML BAG 100 MG IVPB (22:00)
[2024-08-18 23:22] LABS: Glucose Point of Care 101 mg/dl (65-105)
--- NOTE | 2024-08-18 23:22 | PC.NURSE ---
Patient asked nursing staff if she was still getting her Librium at 0100. Nursing staff notified patient there was not an order in for Librium and we would have to speak with the hospitalist. Per hospitalist no Librium, but use the Ativan PRN order.
[2024-08-19] MEDS: chlordiazePOXIDE (*CRX) 25 MG CAPSULE PO (00:51)
[2024-08-19 01:36] VITALS: BP 176/122; PULSE 91; RESP 13; TEMP 36.4; O2SAT 99
[2024-08-19 02:39] VITALS: BP 151/111; PULSE 101; RESP 16; TEMP 36.4; O2SAT 100
[2024-08-19 03:29] VITALS: BMI 29.8
--- NOTE | 2024-08-19 03:37 | ADMGEN ---
This patient, Shruthi Evans, was admitted to IMU Room 206-02 at 0239. Patient/family oriented to hospital policies and general routines including ID bracelet, bed and alarms, visiting hours, pain management, procedures, bathroom and other care routines, personal items, smoking policy, room service/diet, and visiting hours. Information on how to activate the Rapid Response Team has been discussed. Patient/Family are encouraged to report perceived risks to care and to ask questions if they do not understand what they are told or what they should do.
[2024-08-19 04:00] VITALS: PULSE 109
[2024-08-19 05:09] LABS: Basophils Percent Auto 0.2 % (0.2-1.2); Eosinophils Percent Auto 0.3 % (0-4.4); Hemoglobin 13.9 g/dL (12.0-15.0); Immature Granulocyte Absolute 0.04 K/mm3 (0.00-0.031); Immature Granulocyte Percent A 0.5 % (0-0.5); Lymphocytes Absolute Auto 1.69 K/mm3 (0.9-3.2); Lymphocytes Percent Auto 19.6 % (18.3-44.2); Mean Corpuscular HGB Conc 36.6 g/dl (32-36); Mean Corpuscular Hemoglobin 33.8 pg (26-34); Mean Corpuscular Volume 92.5 fl (80-100); Mean Platelet Volume 9.9 fl (7.4-10.4); Monocytes Absolute Auto 0.5 K/mm3 (0.1-0.6); Neutrophils Absolute Auto 6.3 K/mm3 (1.3-6.7); Neutrophils Percent Auto 73.4 % (45.5-73.1); Platelet Count Result 129 k/mm3 (150-375); Red Blood Count 4.11 M/mm3 (4.2-5.4); Red Cell Distribution Width 13.3 % (11.5-14.5); White Blood Count 8.6 K/mm3 (4.5-10.0)
[2024-08-19 05:27] LABS: Albumin Level 2.7 g/dL (3.5-5.1); Alkaline Phosphatase 58 U/L (38-126); Anion Gap 6 mmol/L (4-12); Aspartate Amino Transferase 29 U/L (14-36); Blood Urea Nitrogen 2 mg/dL (7-17); Calcium 7.1 mg/dL (8.4-10.2); Carbon Dioxide 24 mmol/L (22-30); Chloride 104 mmol/L (98-107); Estimated CRCL calculation 119 ml/min; Estimated Glomerular Filt Rate > 60; Glucose 120 mg/dL (65-110); Magnesium 1.8 mg/dL (1.6-2.3); Potassium 2.8 mmol/L (3.4-5.0); Sodium 134 mmol/L (137-145)
[2024-08-19 05:30] LABS: Alanine Aminotransferase 27 U/L (6-35)
[2024-08-19 05:39] VITALS: BP 145/98; PULSE 117
[2024-08-19] MEDS: metroNIDAZOLE 500 MG/ISO 100ML 500 MG/100 ML BAG 100 MG IVPB (06:00)
[2024-08-19] MEDS: SODIUM CHLORIDE 0.9% IV 1,000 ML 125 ML IV CONT (06:55)
[2024-08-19] MEDS: POTASSIUM CHLORIDE 20 MEQ ER TABLET 60 MEQ PO (07:40)
[2024-08-19 07:57] VITALS: BP 166/116; PULSE 114; RESP 18; TEMP 37.1; O2SAT 97
--- NOTE | 2024-08-19 08:16 | PC.NURSE ---
Informed Claire Choudhury NP regarding pt's potassium. Pt received 60meq PO this AM at 0740. New order to cancel my orders, and you may also d/c one of the thiamine orders due to duplicated order.
[2024-08-19 08:52] VITALS: BP 174/118; BP 189/122
--- NOTE | 2024-08-19 09:30 | PC.NURSE ---
Patient notified of risks of leaving AMA. Claire Choudhury NP notified. Follow up instructions given to patient. Patient signed AMA form. Both IV's removed
--- NOTE | 2024-08-19 09:46 | P.PNCROSS_ITS ---
Event Note Event Note Event Note: I was called by RN to the floor as pt was stating she wanted to leave AMA. Pt c vitaliy to the hospital and was admitted for Alcohol abuse and associated withdrawal throughout the night. She was placed on PRN benzodiazepines and ordered Librium by the embedded systems designer, but she refused medications throughout the night. This AM pt apparently stated to the RN that we have not done anything for her and she wanted to leave AMA as she could do the rest at home. This provider went to the floor to discuss with pt and the nurse attempted to stall her, but she was walking off of the floor as I was walking onto the floor. She would not be re- directed by the nurse, and I did not have a chance to see her face to face for risk vs. benefit discussion. Her last documented drink of alcohol was 08/17/24 at 8PM. Her Potassium was noted to be low at 2.8 on arrival. She did receive 60 mEq po prior to leaving. Final dx for this pt: 1) Acute Alcohol Withdrawl 2) Hypokalemia 3) Tremor 4) Abdominal pain with N/V Disposition: AMA
== END 2024-08-19 09:34 | disposition left against medical advice (07) ==
LOC: ANHED 08:05 → ANHIMU 11:36
PROVIDERS: Admitting Provider Internal Medicine; Emergency Provider Emergency Medicine; PCP Family Medicine; Visit Provider Nurse Practitioner Adult Health
DX: F10.139 Alcohol abuse with withdrawal, unspecified (principal); E87.6 Hypokalemia; R25.1 Tremor, unspecified; R10.9 Unspecified abdominal pain; R11.2 Nausea with vomiting, unspecified; K61.0 Anal abscess; I10 Essential (primary) hypertension; Z79.899 Other long term (current) drug therapy
CPT/HCPCS: 36415; 71045; 71260; 74177; 80053; 80307; 81001; 82077; 82948; 83605; 83690; 83735; 84443; 85025; 85610; 85730; 87040; 87086; 93005; 96361; 96365; 96366; 96374; 96375; 96376; 99285; A9270; G0378; J1836; J1956; J2060; J2405; J2765; J3411; J3475; J7030; Q9967

== ENCOUNTER 2024-10-07 08:21 | Observation (INO) | payer OTHER, SELFPAY ==
[2024-10-07] VITALS (30 sets, daily range): BP systolic 114–172; BP diastolic 74–121; PULSE 103–136; RESP 17–28; TEMP 36.6–36.8; O2SAT 95–100; BMI 32.2
--- NOTE | ~2024-10-07 | CT_ITS ---
CLINICAL INDICATION: Abdominal pain COMPARISON: 08/18/2024. TECHNIQUE: Multiple contiguous axial images of the abdomen and pelvis were performed following the ad ministration of with 100 mL Omnipaque-350 intravenous contrast The dose-length product (DLP) was 321.18 mGy-cm. Automated exposure control and iterative reconstruction technique were employed. FINDINGS/OBSERVATIONS: Visualized lower thorax: The bilateral lung bases are clear. The heart is of normal size, without pericardial effusion. Small hiatal hernia is present. Liver: The liver demonstrates homogeneously decreased enhancement, consistent with fatty infiltration and is enlarged measuring 19 cm in longitudinal dimension. Gallbladder and biliary system: The gallbladder is distended, and otherwise unremarkable. Pancreas: The pancreas demonstrates punctate calcifications, suggesting prior pancreatitis. The pancreas otherw ise homogeneously without ductal dilatation. Spleen: The spleen enhances homogeneously and is not enlarged. Kidneys: The bilateral kidneys enhance symmetrically without hydronephrosis or renal calculi. Adrenal glands: Unremarkable. Gastrointestinal tract: The stomach is distended with both fluid and air. Fecal stasis within the colon. Appendix: The air-filled appendix is of normal caliber (axial series, images 117 through 124). Vasculature: Unremarkable. Lymph nodes: No pathologically enlarged or morphologically suspicious lymph nodes within the retroperitoneum or at the root of the mesentery. Pelvic structures: The bladder is minimally distended, and otherwise unremarkable. The uterus is anteverted and anteflexed, and demonstrates heterogeneous enhancement. Body wall and musculoskeletal: Small fat-containing umbilical hernia. No significant degenerative disease within the lower thoracic or lumbosacral spine. IMPRESSION: Heterogeneous enhancement of the uterus, a nonspecific finding. Fatty infiltration of the enlarged liver. Otherwise, unremarkable CT examination of the abdomen and pelvis, as detailed above. Reviewed, dictated and finalized at location A. IMPRESSION: Heterogeneous enhancement of the uterus, a nonspecific finding. Fatty infiltration of the enlarged liver. Otherwise, unremarkable CT examination of the abdomen and pelvis, as detailed a cathie.
--- NOTE | 2024-10-07 08:29 | ECG_ITS ---
Test Date: 2024-10-07 08:34:46 Measurements Intervals [place] Rate: 130 P: 64 [place]: 133 QRS: 62 QRSD: 85 T: 37 QT: 321 QTc: 473 Interpretive Statements SINUS TACHYCARDIA MINIMAL Q WAVES- INFERIOR LEADS BORDERLINE ST ABNORMALITY- INF/LAT LEADS BASELINE ARTIFACT- I, II, III, AVR, AVL, AVF, V1-V2 ABNORMAL ECG Compared to ECG 08/18/2024 10:26:06 HEART RATE HAS INCREASED Electronically Signed On 10-07-2024 09:16:44 CDT by Chavo Solo D.O.
--- OUTSIDE RECORDS SUMMARY | 2024-10-07 08:31 | XMS_ITS | Clinical Summary ---
Author Organization [facility] Address [address] [address] Care Team Providers Care Fashion Intern Name Role Phone Unavailable Primary Care Provider Unavailabl e Source Comments [facility],non-owned Affiliates and Associated Physician Practices is amultiple site organization consisting of ambulatory clinics and hospital sitesin [place], [place], [place] and [place]. This disclosure is being madepursuant to the Care Everywhere program and may not contain all information available regarding this patient. 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 Gender Identity Not on file Sexual Orientation Not on file Plan of Treatment Health Maintenance Due Date Last Done Comments LIPID TESTING 1981 MAMMOGRAM 1981 PAP SMEAR 1981 HIV SCREENING 1996 HEPATITIS C SCREENING 12/23/1999 DTAP/TDAP/TD VACCINES (1 - Tdap) 2000 HEPATITIS B VACCINE (1 of 3 - 19+ 3-dose series) 2000 COVID-19 VACCINE ( - 2023-2 5 season) 2024 DEPRESSION SCREENING 06/25/2024 INFLUENZA VACCINE (Season Ended) 2025 ZOSTER VACCINE (1 of 2) 12/28/2031 HIB VACCINE Aged Out No longer eligi ble based on patient's age to complete this topic HPV VACCINE Aged Out No longer eligi ble based on patient's age to complete this topic MENINGOCOCCAL (Group B) VACC INE SHARED DECISION-MAKING Aged Out No longer eligibl e based on patient's age to complete this topic MENINGOCOCCAL GROUPS A/C/Y/W VACCINE Aged Out No longer eligible b ased on patient's age to complete this topic PNEUMOCOCCAL VACCINE Aged Out No long er eligible based on patient's age to complete this topic
--- OUTSIDE RECORDS SUMMARY | 2024-10-07 08:31 | XMS_ITS | Continuity of Care Document ---
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 [address], [place], [place], [address] , [place]. tel:[phone] PREV VISIT, EST, AGE [age] [facility], [address], [place], [place], [address], [place] tel:[phone] [facility] physical (chief complaint) Encounter for general adult medical examination without abnormal findings 2 Sumanth Palacios. [address], [place], [place], [address] , [place]. tel:[phone] OFFICE/OUTPA TIENT VISIT, EST [facility], [address], [address], [place] tel:[phone] [facility] Medicine alcohol1 (chief complaint) weight gain1 (chief complaint) HCT (chief complaint) HLP (chief complaint) Generalized Anxiety DisorderAlcohol dependence, in remissionHyperlipid emiaSecondary polycythemiaAbnorma l weight gain 1 Sumanth Palacios. [address], [place], [place], [address] , [place]. tel:[phone] OFFICE/OUTPA TIENT VISIT, [facility], [place], [address], [place], [place], [address], [place] tel:[phone] [facility] Alcohol1 (chief complaint) anxitey1 (chief complaint) GERD1 (chief complaint) Alcohol dependence with intoxication, unspecifiedGenerali zed Anxiety DisorderGastritis, unspecified, without bleeding 1 Sumanth Palacios. [address], [place], [place], [address] , [place]. tel:[phone] OFFICE/OUTPA TIENT VISIT, [facility], [place], [address], [place], [place], [address], [place] tel:[phone] [facility] GERD w/o esophagitisAlcohol dependence, in remissionGeneralize d Anxiety Disorder 1 Sumanth Palacios. [address], [place], [place], [address] , [place]. tel:[phone] [facility], [address], [place], [place], [address], [place] tel:[phone] [facility] anxiety1 (chief complaint) alcohol1 (chief complaint) GERD1 (chief complaint) Generalized Anxiety DisorderAlcohol dependence, in remissionGERD w/o esophagitis 1 Sumanth Palacios. [address], [place], [place], [address] , [place]. tel:[phone] OFFICE/OUTPA TIENT VISIT, [facility] [place], [address], [place], [place], [address], [place] tel:[phone] [facility] anxiety1 (chief complaint) alcohol1 (chief complaint) hirsutism1 (chief complaint) hyponaremi a1 (chief complaint) weight gain1 (chief complaint) HirsutismGeneralize d Anxiety DisorderAlcohol dependence, in remissionAbnormal weight gainHyponatremia 1 Sumanth Palacios. [address], [place], [place], [address] , [place]. tel:[phone] OFFICE/OUTPA TIENT VISIT, [facility] [place], [address], [place], [place], [address], [place] tel:[phone] [facility] alcohol1 (chief complaint) anxiety1 (chief complaint) hirsutism1 (chief complaint) hyponatrem ia1 (chief complaint) HirsutismGeneralize d Anxiety DisorderAlcohol dependence, in remissionHyponatrem ia 1 Sumanth Lin [address], [place], [place], [address] , [place]. tel:[phone] Referring Provider: Vaibhav Esqueda [address], [place], [place], [address]. tel:[phone] OFFICE/OUTPA TIENT VISIT, [facility] [place], [address] [place] [address] [address], [place], [place], [address], [place] tel:[phone] [facility] anxiety1 (chief complaint) hirsutism1 (chief complaint) insomnia1 (chief complaint) HirsutismGeneralize d Anxiety DisorderInsomnia 0 Sumanth Lin [address], [place], [place], [address] , [place]. tel:[phone] Referring Provider: Vaibhav Esqueda [address], [place], [place], [address]. tel:[phone] OFFICE/OUTPA TIENT VISIT, [facility] [place], [address], [place], [place], [address], [place] tel:[phone] [facility] anxiety1 (chief complaint) weight (chief complaint) Abnormal weight gainGeneralized Anxiety Disorder 0 Sumanth Lin [address], [place], [place], [address] , [place]. tel:[phone] Referring Provider: Vaibhav Esqueda [address], [place], [place], [address]. tel:[phone] OFFICE/OUTPA TIENT VISIT, [facility] [place], [address], [place], [place], [address], [place] tel:[phone] [facility] anxiety1 (chief complaint) weight gain1 (chief complaint) Generalized Anxiety DisorderAbnormal weight gain 0 Sumanth Palacios. [address], [place], [place], [address] , [place]. tel:[phone] Referring Provider: Philip Julio, [address], [place], [place], [address]. tel:[phone] OFFICE/OUTPA TIENT VISIT, [facility] [place], [address], [place], [place], [address], [place] tel:[phone] [facility] HLP (chief complaint) hCT (chief complaint) glucose1 (chief complaint) anxiety1 (chief complaint) weight gain1 (chief complaint) HyperlipidemiaHyper glycemiaSecondary polycythemiaGeneral ized Anxiety DisorderAbnormal weight gain Feb- 0 Sumanth Palacios. [address], [place], [place], [address] , [place]. tel:[phone] Referring Provider: Philip Julio [address], [place], [place], [address]. tel:[phone] OFFICE/OUTPA TIENT VISIT, [facility] [place], [address], [place], [place], [address], [place] tel:[phone] [facility] anxiety1 (chief complaint) HTN (chief complaint) Generalized Anxiety DisorderAbnormal weight lossHirsutism Jan- 0 Sumanth Palacios. [address], [place], [place], [address] , [place]. tel:[phone] Referring Provider: Philip Julio [address], [place], [place], [address]. tel:[phone] OFFICE/OUTPA TIENT VISIT, [facility] [place], [address], [place], [place], [address], [place] tel:[phone] [facility] anxiety1 (chief complaint) weight loss1 (chief complaint) Generalized Anxiety DisorderAbnormal weight loss 0 0 Sumanth Palacios. [address], [place], [place], [address] , [place]. tel:[phone] Referring Provider: Philip Julio, [address], [place], [place], [address]. tel:[phone] OFFICE/OUTPA TIENT VISIT, [facility] [place], [address], [place], [place], [address], [place] tel:[phone] [facility] work excuse1 (chief complaint) Fatigue 0 Sumanth Palacios. [address], [place], [place], [address] , [place]. tel:[phone] Referring Provider: Philip Julio, [address], [place], [place], [address]. tel:[phone] OFFICE/OUTPA TIENT VISIT, [facility] [place], [address], [place], [place], [address], [place] tel:[phone] [facility] anxiety1 (chief complaint) weight1 (chief complaint) Abnormal weight gainGeneralized Anxiety Disorder 0 Sumanth Palacios. [address], [place], [place], [address] , [place]. tel:[phone] Referring Provider: Vaibhav Esqueda [address], [place], [place], [address]. tel:[phone] OFFICE/OUTPA TIENT VISIT, [facility] [place], [address], [place], [place], [address], [place] tel:[phone] [facility] HLP (chief complaint) anxiety1 (chief complaint) Generalized Anxiety DisorderHyperlipide caitlyn 0 0 Sumanth Palacios. [address], [place], [place], [address] , [place]. tel:[phone] Referring Provider: Philip Julio [address], [place], [place], [address]. tel:[phone] OFFICE/OUTPA TIENT VISIT, EST [facility], [address], [place], [place], [address], [place] tel:[phone] [facility] Medicine anxiety1 (chief complaint) weight gain1 (chief complaint) Abnormal weight gainGeneralized Anxiety Disorder Apr-2 0 Sumanth Palacios. [address], [place], [place], [address] , [place]. tel:[phone] Referring Provider: Philip Julio [address], [place], [place], [address]. tel:[phone] OFFICE/OUTPA TIENT VISIT, [facility] [place], [address], [place], [place], [address], [place] tel:[phone] [facility] anxiety1 (chief complaint) hand numbness1 (chief complaint) Paresthesia of skinGeneralized Anxiety Disorder Aug- 0 Sumanth Palacios. [address], [place], [place], [address] , [place]. tel:[phone] Referring Provider: Vaibhav Esqueda [address], [place], [place], [address]. tel:[phone] OFFICE/OUTPA TIENT VISIT, [facility] [place], [address], [place], [place], [address], [place] tel:[phone] [facility] tingling1 (chief complaint) weight loss1 (chief complaint) anxiety1 (chief complaint) Other muscle spasmParesthesia of skinGeneralized Anxiety DisorderAbnormal weight loss Fe- 0- 0 Sumanth Palacios. [address], [place], [place], [address] , [place]. tel:[phone] Referring Provider: Vaibhav Esqueda [address], [place], [place], [address]. tel:[phone] PREV VISIT, EST, AGE 18-39 [facility], [address], [place], [place], [address], [place] tel:[phone] [facility] Physical (chief complaint) Encntr for general adult medical exam w/o abnormal findings 0 0 Sumanth Palacios. [address], [place], [place], [address] , [place]. [phone] Referring Provider: Vaibhav Esqueda [address], [place], [place], [address]. tel:[phone] OFFICE/OUTPA TIENT VISIT, [facility] [place], [address], [place], [place], [address], [place] tel:[phone] [facility] anxiety1 (chief complaint) weight1 (chief complaint) Abnormal weight gainGeneralized Anxiety Disorder 9 Sumanth Palacios. [address], [place], [place], [address] , [place]. [phone] Referring Provider: Vaibhav Esqueda [address], [place], [place], [address]. tel:[phone] OFFICE/OUTPA TIENT VISIT, [facility] [place], [address], [place], [place], [address], [place] tel:[phone] [facility] weight loss1 (chief complaint) anxiety1 (chief complaint) Abnormal weight lossGeneralized Anxiety Disorder 9 Sumanth Lin [address], [place], [place], [address] , [place]. [phone] Referring Provider: Vaibhav Esqueda [address], [place], [place], [address]. tel:[phone] OFFICE/OUTPA TIENT VISIT, [facility] [place], [address], [place], [place], [address], [place] tel:[phone] [facility] weight loss1 (chief complaint) anxiety1 (chief complaint) Generalized Anxiety DisorderAbnormal weight loss 9 Sumanth Palacios. [address], [place], [place], [address] , [place]. [phone] Referring Provider: Vaibhav Esqueda [address], [place], [place], [address]. tel:[phone] OFFICE/OUTPA TIENT VISIT, [facility] [place], [address], [place], [place], [address], [place] tel:[phone] [facility] fatty liver1 (chief complaint) HLP (chief complaint) MCV (chief complaint) weight loss1 (chief complaint) anxiety1 (chief complaint) HyperlipidemiaAbnor mal weight lossGeneralized Anxiety DisorderFatty liverOther specified disease of bloodHyperglycemia 0 9 Sumanth Palacios. [address], [place], [place], [address] , [place]. tel:[phone] Referring Provider: Vaibhav Esqueda [address], [place], [place], [address]. tel:[phone] OFFICE/OUTPA TIENT VISIT, [facility] [place], [address], [place], [place], [address], [place] tel:[phone] [facility] anxiety1 (chief complaint) LFT (chief complaint) obesity1 (chief complaint) HLP (chief complaint) sleep apnea1 (chief complaint) Liver diseaseHyperlipidem iaSleep apneaGeneralized Anxiety DisorderAbnormal weight gain 9 Sumanth Palacios. [address], [place], [place], [address] , [place]. tel:[phone] Referring Provider: Vaibhav Esqueda [address], [place], [place], [address]. tel:[phone] OFFICE/OUTPA TIENT VISIT, [facility] [place], [address], [place], [place], [address], [place] tel:[phone] [facility] HTN (chief complaint) anxiety1 (chief complaint) LFT (chief complaint) Abnormal weight lossLiver diseaseGeneralized Anxiety Disorder 9 Sumanth Palacios. [address], [place], [place], [address] , [place]. tel:[phone] Referring Provider: Vaibhav Esqueda [address], [place], [place], [address]. tel:[phone] OFFICE/OUTPA TIENT VISIT, [facility] [place], [address], [place], [place], [address], [place] tel:[phone] [facility] weight1 (chief complaint) anxiety1 (chief complaint) lFt (chief complaint) sleep apnea1 (chief complaint) Sleep apneaLiver diseaseGeneralized Anxiety DisorderSecondary polycythemiaHyperli pidemiaAbnormal weight gain 9 Sumanth Palacios. [address], [place], [place], [address] , [place]. tel:[phone] Referring Provider: Vaibhav Esqueda [facility] A, [place], [place], [address]. tel:[phone] OFFICE/OUTPA TIENT VISIT, [facility] [place], [address], [place], [place], [address], [place] tel:[phone] [facility] anxiety1 (chief complaint) weight1 (chief complaint) sleep apnea1 (chief complaint) liver1 (chief complaint) Abnormal weight gainLiver diseaseGeneralized Anxiety DisorderSleep apnea 9 Sumanth Palacios. [address], [place], [place], [address] , [place]. tel:[phone] Referring Provider: Vaibhav Esqu[address], [place], [place], [address]. tel:[phone] OFFICE/OUTPA TIENT VISIT, [facility] [place], [address], [place], [place], [address], [place] tel:[phone] [facility] HLP (chief complaint) LFT (chief complaint) polycythem ia1 (chief complaint) glucose1 (chief complaint) anxiety1 (chief complaint) HyperlipidemiaLiver diseaseHyperglycemi aSecondary polycythemiaGeneral ized Anxiety DisorderAbnormal weight gain 9 Sumanth Lin [address], [place], [place], [address] , [place]. tel:[phone] Referring Provider: Vaibhav Esqueda [address], [place], [place], [address]. tel:[phone] OFFICE/OUTPA TIENT VISIT, EST [facility], [address], [place], [place], [address], [place] tel:[phone] [facility] GI (chief complaint) Viral infection 9 Sumanth Palacios. [address], [place], [place], [address] , [place]. tel:[phone] Referring Provider: Philip Julio, Vaibhav [address], [place], [place], [address]. tel:[phone] OFFICE/OUTPA TIENT VISIT, [facility] [place], [facility] [address], [place], [place], [address], [place] tel:[phone] [facility] weight gain1 (chief complaint) anxiety1 (chief complaint) cough1 (chief complaint) insomnia1 (chief complaint) Acute bronchitisInsomniaG eneralized Anxiety DisorderAbnormal weight gainEssential (primary) hypertension 9 Sumanth Palacios. [address], [place], [place], [address] , [place]. tel:[phone] Referring Provider: Vaibhav Esqueda [address], [place], [place], [address]. tel:[phone] PREV VISIT, EST, AGE 18-39 [facility], [address], [place], [place], [address], [place] tel:[phone] [facility] Physical (chief complaint) Encounter for general adult medical exam w abnormal findingsAbnormal weight gainGeneralized Anxiety DisorderOccult blood in fecesEssential (primary) hypertension 8 Sumanth Palacios. [address], [place], [place], [address] , [place]. tel:[phone] Referring Provider: Vaibhav Esqueda [address], [place], [place], [address]. tel:[phone] OFFICE/OUTPA TIENT VISIT, [facility] [place], [address], [place], [place], [address], [place] tel:[phone] [facility] insomnia1 (chief complaint) anxiety1 (chief complaint) sob1 (chief complaint) Generalized Anxiety DisorderAsthmaInsom niaSleep disorder, unspecified 0 7 Sumanth Palacios. [address], [place], [place], [address] , [place]. tel:[phone] Referring Provider: Philip Julio, [address], [place], [place], [address]. tel:[phone] OFFICE/OUTPA TIENT VISIT, [facility] [place], [address], [place], [place], [address], [place] tel:[phone] [facility] anxiety1 (chief complaint) insomnia1 (chief complaint) InsomniaGeneralized Anxiety Disorder 7 Sumanth Palacios. [address], [place], [place], [address] , [place]. tel:[phone] Referring Provider: Philip Julio [address], [place], [place], [address]. tel:[phone] OFFICE/OUTPA TIENT VISIT, [facility] [place], [address], [place], [place], [address], [place] tel:[phone] [facility] back pain1 (chief complaint) HLP (chief complaint) anxiety1 (chief complaint) insomnia1 (chief complaint) HyperlipidemiaBack painGeneralized Anxiety Disorder 7 Sumanth Palacios. [address], [place], [place], [address] , [place]. tel:[phone] Referring Provider: Vaibhav Esqueda [address], [place], [place], [address]. tel:[phone] OFFICE/OUTPA TIENT VISIT, [facility] [place], [address], [place], [place], [address], [place] tel:[phone] [facility] anxiety1 (chief complaint) insomnia1 (chief complaint) marijauna1 (chief complaint) weight loss1 (chief complaint) InsomniaGeneralized Anxiety DisorderCannabis abuse, uncomplicatedAbnorm al weight loss 7 Sumanth Palacios. [address], [place], [place], [address] , [place]. tel:[phone] Referring Provider: Vaibhav Esqueda [address], [place], [place], [address]. tel:[phone] OFFICE/OUTPA TIENT VISIT, [facility] [place], [address], [place], [place], [address], [place] tel:[phone] [facility] anxiety1 (chief complaint) insomnia1 (chief complaint) HLP (chief complaint) Generalized Anxiety DisorderHyperlipide miaInsomniaBody mass index (BMI) 32.0-32.9, adult Fe 7 Sumanth Lin [address], [place], [place], [address] , [place]. tel:[phone] Referring Provider: Vaibhav Esqueda [address], [place], [place], [address]. tel:[phone] OFFICE/OUTPA TIENT VISIT, [facility] [place], [address], [place], [place], [address], [place] tel:[phone] [facility] anxiety1 (chief complaint) insomnia1 (chief complaint) obesity1 (chief complaint) Generalized Anxiety DisorderBody mass index (BMI) 33.0-33.9, adultInsomnia 7 Sumanth Lin [address], [place], [place], [address] , [place]. tel:[phone] Referring Provider: Vaibhav Esqueda [address], [place], [place], [address]. tel:[phone] OFFICE/OUTPA TIENT VISIT, [facility] [place], [address], [place], [place], [address], [place] tel:[phone] [facility] Medicine HLP (chief complaint) MCV (chief complaint) toothache1 (chief complaint) anxiety1 (chief complaint) HyperlipidemiaAtypi jaguar facial painOther specified disease of bloodInsomnia 0 6 Sumanth Palacios. [address], [place], [place], [address] , [place]. tel:[phone] Referring Provider: Vaibhav Esqueda [address], [place], [place], [address]. tel:[phone] PREV VISIT, EST, AGE 18-39 [facility], [address], [place], [place], [address], [place] tel:[phone] [facility] PHysical (chief complaint) Encounter for general adult medical exam w abnormal findingsGeneralized anxiety disorderInsomnia 6 Sumanth Palacios. [address], [place], [place], [address] , [place]. tel:[phone] Referring Provider: Vaibhav Esqueda [address] [facility] A, [place], [place], [address]. tel:[phone] OFFICE/OUTPA TIENT VISIT, EST [facility], [address], [place], [place], [address], [place] tel:[phone] [facility] anxiety1 (chief complaint) hematuria1 (chief complaint) HTN (chief complaint) insomnia1 (chief complaint) Essential (primary) hypertensionHematur ia, unspecifiedGenerali zed anxiety disorderInsomnia 6 Sumanth Lin [address], [place], [place], [address] , [place]. tel:[phone] Referring Provider: Vaibhav Esqueda [address], [place], [place], [address]. tel:[phone] OFFICE/OUTPA TIENT VISIT, EST [facility], [address] [place], [address], [place] tel:[phone] [facility] shoulder pain1 (chief complaint) hematuria (chief complaint) anxiety1 (chief complaint) HematuriaGeneralize d anxiety disorderPain in rt shoulder 6 Sumanth Lin [address], [place], [place], [address] , [place]. tel:[phone] Referring Provider: Philip Julio, Vaib[address], [place], [place], [address]. tel:[phone] OFFICE/OUTPA TIENT VISIT, [facility] [place], [address], [place], [place], [address], [place] tel:[phone] [facility] anxiety1 (chief complaint) insomnia1 (chief complaint) Generalized anxiety disorderOther insomnia 0 6 Sumanth Palacios. [address], [place], [place], [address] , [place]. tel:[phone] Referring Provider: Vaibhav Esqueda [address], [place], [place], [address]. tel:[phone] OFFICE/OUTPA TIENT VISIT, [facility] [place], [address], [place], [place], [address], [place] tel:[phone] [facility] Anxiety1 (chief complaint) insomnia1 (chief complaint) fatigue1 (chief complaint) Other insomniaOther fatigueGeneralized anxiety disorder 8 5 Sumanth Palacios. [address], [place], [place], [address] , [place]. tel:[phone] Referring Provider: Vaibhav Esqueda [address], [place], [place], [address]. tel:[phone] OFFICE/OUTPA TIENT VISIT, [facility] [place], [address], [place], [place], [address], [place] tel:[phone] [facility] chest pain1 (chief complaint) anxiety1 (chief complaint) Generalized anxiety disorderHematuria 7 5 Sumanth Palacios. [address], [place], [place], [address] , [place]. tel:[phone] Referring Provider: Vaibhav Esqueda [address], [place], [place], [address]. tel:[phone] OFFICE/OUTPA TIENT VISIT, [facility] [place], [address], [place], [place], [address], [place] tel:[phone] [facility] Anxiety (chief complaint) HLP (chief complaint) hematuria (chief complaint) chest pain (chief complaint) Dietary surveillance and counselingGeneraliz ed anxiety disorderHematuriaHy perlipidemiaChest pain 5 Sumanth Palacios. [address], [place], [place], [address] , [place]. tel:[phone] Referring Provider: Vaibhav Esqueda [address], [place], [place], [address]. tel:[phone] PREV VISIT, EST, AGE 18-39 [facility], [address], [place], [place], [address], [place] tel:[phone] [facility] [facility] PHysical (chief complaint) Routine medical examDietary surveillance and counseling 5 Sumanth Palacios. [address], [place], [place], [address] , [place]. tel:[phone] Referring Provider: Vaibhav Esqueda [address], [place], [place], [address]. tel:[phone] OFFICE/OUTPA TIENT VISIT, EST [facility], [address], [place], [place], [address], [place] tel:[phone] [facility] rectal bleeding (chief complaint) anxiety (chief complaint) HTN (chief complaint) HLP (chief complaint) Unspecified essential hypertensionOther and unspecified hyperlipidemiaGener alized anxiety disorderRectal bleedingDietary surveillance and counseling 5 Sumanth Palacios. [address], [place], [place], [address] , [place]. tel:[phone] Referring Provider: Vaibhav Esqueda [address], [place], [place], [address]. tel:[phone] OFFICE/OUTPA TIENT VISIT, EST [facility], [address], [place], [place], [address], [place] tel:[phone] [facility] anxiety (chief complaint) alcohol (chief complaint) Generalized anxiety disorderAlcohol dependence in remission Flash- 3-201 5 Sumanth Palacios. [address], [place], [place], [address] , [place]. tel:[phone] Referring Provider: Vaibhav Esqueda [address], [place], [place], [address]. tel:[phone] OFFICE/OUTPA TIENT VISIT, [facility], [place], [address], [place], [place], [address], [place] tel:[phone] [facility] anxiety (chief complaint) alcohol (chief complaint) Generalized anxiety disorderDepression May-0 6- 5 Sumanth Palacios. [address], [place], [place], [address] , [place]. tel:[phone] Referring Provider: Vaibhav Esqueda [address], [place], [place], [address]. tel:[phone] OFFICE/OUTPA TIENT VISIT, [facility], [place], [address], [place], [place], [address], [place] tel:[phone] [facility] anxiety (chief complaint) HTN (chief complaint) Dietary surveillance and counselingDepressio nGeneralized anxiety disorder Apr-0 6 5 Sumanth Palacios. [address], [place], [place], [address] , [place]. tel:[phone] Referring Provider: Vaibhav Esqueda [address], [place], [place], [address]. tel:[phone] OFFICE/OUTPA TIENT VISIT, [facility] [place], [address], [place], [place], [address], [place] tel:[phone] [facility] anxiety (chief complaint) alcohol (chief complaint) Dietary surveillance and counselingSedative, hypnotic or anxiolytic dependence, unspecifiedOther and unspecified alcohol dependence, episodic drinking behavior Mar-0 9-201 5 Sumanth Palacios. [address], [place], [place], [address] , [place]. tel:[phone] Referring Provider: Vaibhav Esqueda [address], [place], [place], [address]. tel:[phone] OFFICE/OUTPA TIENT VISIT, [facility] [place], [address], [place], [place], [address], [place] tel:[phone] [facility] sick (chief complaint) cardiomyop athy (chief complaint) alcohol (chief complaint) anxiety (chief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
--- OUTSIDE RECORDS SUMMARY | 2024-10-07 08:31 | XMS_ITS | Data Portability ---
Author Organization [facility] [place] Address [address] [place] [address] Care Team Providers Care Cyber Systems Administrator Name Role Phone JANETTE PIERCE Primary Care Provider Assessment Encounter Date Assessment Date Assessment LastModified by Organization Details LastModified Time 02/07/2021 02/07/2021 Time spent in visit is a total of 32 mins with at least 50% of visit consisting of counseling and review of plan of care. Additional precautionary measures were taken to minimize potential exposure to the Covid-19 virus during this patient s visit, including available hand youth counselor upon arrive, temperature check and being asked a series of screening questions. All staff wore face coverings during this encounter, as well as provided additional cleaning and sanitizing of all surfaces, including countertops, pens, chairs, door handles, light switches, etc, prior to and following the patient s visit. [email or web address] Not available 02/07/2021 14:32:49 Plan of Treatment Reminders Order Date Submit Date Provider Last Modified By Organization Details Last Modified Time Details Appointments None recorded. Lab hormone panel, serum or plasma 2020 [facility] (Lab), [address], [place], [address], 1 22:04:01 prolactin, serum 2020 021 [facility] (Lab), [address] [place], [address], 22:04:00 TSH, serum or plasma 2020 021 [facility] (Lab), [address], [place], [address], 1 22:03:59 CBC w/ auto diff 2020 [facility] (Lab), [address], [place], [address], 1 22:03:58 CMP, serum or plasma 2020 [facility] (Lab), [address], [place], [address], 1 22:03:59 HbA1c (hemoglobi n A1c), blood 2020 [facility] (Lab), [address], [place], [address], 1 22:04:01 testostero ne, total, serum 2020 [facility] (Lab), [address], [place], [address], 1 22:04:02 vitamin D, 25-hydroxy , total, serum 2020 [facility] (Lab), [address], [place], [address], 1 22:04:00 Referral None recorded. Procedures None recorded. Surgeries None recorded. Imaging US, pelvis, complete 2020 [facility] [place], [facility] [address], [place], [address], 2 12:12:05 Medication Orders None recorded. Patient TargetsNo targets recorded. Patient InstructionsNo instructions recorded. Reason for Referral None Reported. Results Created Date Observation Date Name Description Value Unit Range Abnormal Flag Note LastModifiedBy Organization Detail LastModifiedTime 02/08/20 21 02/07/2021 CBC W/DIF F WBC 10.4 10'3/ uL 3.6-10 .2 high Not Available [facility] (Lab) [address], [place], [address], 02/10/2021 22:03:58 02/08/20 21 02/07/2021 CBC W/DIF F RBC 4.30 10'6/ uL (based on docume nted legal sex) 4.10-5 .30 Not Available [facility] (Lab) [address], [place], [address], 02/10/2021 22:03:58 02/08/20 21 02/07/2021 CBC W/DIF F HGB 14.3 g/dL (based on docume nted legal sex) 11.9-1 5.8 Not Available [facility] (Lab) [address], [place], [address], 02/10/2021 22:03:58 02/08/20 21 02/07/2021 CBC W/DIF F HCT 43.8 % (based on docume nted legal sex) 37.4-4 8.3 Not Available [facility] (Lab) [address], [place], [address], 02/10/2021 22:03:58 02/08/20 21 02/07/2021 CBC W/DIF F MCV 103.0 fL 82.0-9 9.0 high Not Available [facility] (Lab) [address], [place], [address], 02/10/2021 22:03:58 02/08/20 21 02/07/2021 CBC W/DIF F MCH 34.0 pg 27.0-3 3.0 high Not Available [facility] (Lab) [address], [place], [address], 02/10/2021 22:03:58 02/08/20 21 02/07/2021 CBC W/DIF F MCHC 33.0 g/dL 32.0-3 6.0 Not Available [facility] (Lab) [address], [place], [address], 02/10/2021 22:03:58 02/08/20 21 02/07/2021 CBC W/DIF F RDW 12.0 % 11.0-1 5.0 Not Available [facility] (Lab) [address], [place], [address], 02/10/2021 22:03:58 02/08/20 21 02/07/2021 CBC W/DIF F plt 265 10'3/ uL 150-45 0 Not Available [facility] (Lab) [address], [place], [address], 02/10/2021 22:03:58 02/08/20 21 02/07/2021 CBC W/DIF F MPV 10.6 fL 9.8-12 .7 Not Available [facility] (Lab) [address], [place], [address], 02/10/2021 22:03:58 02/08/20 21 02/07/2021 CBC W/DIF F NRBC's 0.00 % 0 Not Available [facility] (Lab) [address], [place], [address], 02/10/2021 22:03:58 02/08/20 21 02/07/2021 CBC W/DIF F absolute NRBCs 0.0 10'3/ uL 0 Not Available [facility] (Lab) [address], [place], [address], 02/10/2021 22:03:58 02/08/20 21 02/07/2021 CBC W/DIF F neutrophils 74.0 % 37.0-7 2.0 high Not Available [facility] (Lab) [address], [place], [address], 02/10/2021 22:03:58 02/08/20 21 02/07/2021 CBC W/DIF F lymphocytes 16.0 % 16.0-4 8.0 Not Available [facility] (Lab) [address], [place], [address], 02/10/2021 22:03:58 02/08/20 21 02/07/2021 CBC W/DIF F monocytes 7.0 % 4.0-14 .0 Not Available [facility] (Lab) [address], [place], [address], 02/10/2021 22:03:58 02/08/20 21 02/07/2021 CBC W/DIF F eosinophils 2.0 % 0.0-9. 0 Not Available [facility] (Lab) [address], [place], [address], 02/10/2021 22:03:58 02/08/20 21 02/07/2021 CBC W/DIF F basophils 1.0 % 0.0-2. 0 Not Available [facility] (Lab) [address], [place], [address], 02/10/2021 22:03:58 02/08/20 21 02/07/2021 CBC W/DIF F immature granulocytes 0.0 % no define d refere nce range Not Available [facility] (Lab) [address], [place], [address], 02/10/2021 22:03:58 02/08/20 21 02/07/2021 CBC W/DIF F absolute neutrophils 7.7 10'3/ uL 1.1-6. 0 high Not Available [facility] (Lab) [address], [place], [address], 02/10/2021 22:03:58 02/08/20 21 02/07/2021 CBC W/DIF F absolute lymphocytes 1.7 10'3/ uL 0.7-3. 4 Not Available [facility] (Lab) [address] [place], [address], 02/10/2021 22:03:58 02/08/20 21 02/07/2021 CBC W/DIF F absolute monocytes 0.7 10'3/ uL 0.3-1. 0 Not Available [facility] (Lab) [address], [place], [address], 02/10/2021 22:03:58 02/08/20 21 02/07/2021 CBC W/DIF F absolute eosinophils 0.3 10'3/ uL 0.0-0. 6 Not Available [facility] (Lab) [address], [place], [address], 02/10/2021 22:03:58 02/08/20 21 02/07/2021 CBC W/DIF F absolute basophils 0.1 10'3/ uL 0.0-0. 1 Not Available [facility] (Lab) [address], [place], [address], 02/10/2021 22:03:58 02/08/20 21 02/07/2021 CBC W/DIF [...] resul ts are expec jordan. Not Available [facility] (Lab) [address], [place], [address], 02/10/2021 22:03:58 02/08/20 21 02/07/2021 CMP WITH BUN/C REAT RATIO sodium 136 mmol/ L 136-14 5 Not Available [facility] (Lab) [address], [place], [address], 02/10/2021 22:03:59 02/08/20 21 02/07/2021 CMP WITH BUN/C REAT RATIO potassium 3.9 mmol/ L 3.5-5. 1 Not Available [facility] (Lab) [address] [place], [address], 02/10/2021 22:03:59 02/08/20 21 02/07/2021 CMP WITH BUN/C REAT RATIO chloride 102 mmol/ L 98-107 Not Available [facility] (Lab) [address], [place], [address], 02/10/2021 22:03:59 02/08/20 21 02/07/2021 CMP WITH BUN/C REAT RATIO carbon dioxide 28 mmol/ L 21-31 Not Available [facility] (Lab) [address], [place], [address], 02/10/2021 22:03:59 02/08/20 21 02/07/2021 CMP WITH BUN/C REAT RATIO anion gap 6 mmol/ L 4-13 Not Available [facility] (Lab) [address], [place], [address], 02/10/2021 22:03:59 02/08/20 21 02/07/2021 CMP WITH BUN/C REAT RATIO blood urea nitrogen 10 mg/dL 7-25 Not Available [facility] (Lab) [address], [place], [address], 02/10/2021 22:03:59 02/08/20 21 02/07/2021 CMP WITH BUN/C REAT RATIO creatinine 0.70 mg/dL 0.60-1 .30 Not Available [facility] (Lab) [address] [place], [address], 02/10/2021 22:03:59 02/08/20 21 02/07/2021 CMP WITH BUN/C REAT RATIO BUN/creatini ne ratio 14.3 . 10.0-2 2.0 Not Available [facility] (Lab) [address], [place], [address], 02/10/2021 22:03:59 02/08/20 21 02/07/2021 CMP WITH BUN/C REAT RATIO GFR () 113 mL/mi n/1.7 3_m2 60-300 Not Available [facility] (Lab) [address], [place], [address], 02/10/2021 22:03:59 02/08/20 21 02/07/2021 CMP WITH BUN/C REAT RATIO GFR (others) 93 mL/mi n/1.7 3_m2 60-300 Not Available [facility] (Lab) [address], [place], [address], 02/10/2021 22:03:59 02/08/20 21 02/07/2021 CMP WITH BUN/C REAT RATIO calcium 9.5 mg/dL 8.6-10 .2 Not Available [facility] (Lab) [address], [place], [address], 02/10/2021 22:03:59 02/08/20 21 02/07/2021 CMP WITH BUN/C REAT RATIO glucose 83 mg/dL 70-100 Not Available [facility] (Lab) [address], [place], [address], 02/10/2021 22:03:59 02/08/20 21 02/07/2021 CMP WITH BUN/C REAT RATIO protein, total 6.7 g/dL 6.4-8. 3 Not Available [facility] (Lab) [address], [place], [address], 02/10/2021 22:03:59 02/08/20 21 02/07/2021 CMP WITH BUN/C REAT RATIO albumin 4.0 g/dL 3.5-5. 0 Not Available [facility] (Lab) [address], [place], [address], 02/10/2021 22:03:59 02/08/20 21 02/07/2021 CMP WITH BUN/C REAT RATIO ALT 17 units /L 9-43 Not Available [facility] (Lab) [address], [place], [address], 02/10/2021 22:03:59 02/08/20 21 02/07/2021 CMP WITH BUN/C REAT RATIO alkaline phosphatase 50 units /L 34-104 Not Available [facility] (Lab) [address], [place], [address], 02/10/2021 22:03:59 02/08/20 21 02/07/2021 CMP WITH BUN/C REAT RATIO AST 15 units /L 13-39 Not Available [facility] ([facility]) [address], [place], [address], 02/10/2021 22:03:59 02/08/20 21 02/07/2021 CMP WITH [...] will be imple mente d. Not Available [facility] (Lab) [address], [place], [address], 02/10/2021 22:03:59 02/08/20 21 02/07/2021 TSH, REFLE X FREE T4 TSH 1.47 uIU/m L 0.30-5 .33 Not Available [facility] (Lab) [address], [place], [address], 02/10/2021 22:03:59 02/08/20 21 02/07/2021 VITAM IN D, 25-OH (TOTA L D2/D3 ) vitamin D, 25-hydroxy, total 44.1 NG/mL 30-80 NOTE: Defic iency : <20 ng/mL Insuf ficie ncy: 20-29 ng/mL Optim um Level : 30-80 ng/mL Possi ble Toxic ity: >80 ng/mL Most patie nts with toxic ity have level s >150 ng/mL . Not Available [facility] (Lab) [address], [place], [address], 02/10/2021 22:04:00 02/08/20 21 02/07/2021 PROLA CTIN prolactin, total 15.00 NG/mL 4.79-2 3.30 This assay was perfo rmed using [employer] ratio n reage nts and test kits. Value s obtai jac with other assay metho ds or kits canno t be used [facility] . Not Available [facility] ([facility]) [address], [place], [address], 02/10/2021 22:04:00 02/08/20 21 02/07/2021 FSH, LH, ESTRA DIOL estradiol 44.8 pg/mL This assay was perfo rmed using [employer] reage nts and test kits. Value s obtai jac with other assay metho ds or kits canno t be used [facility] . Femal e Estra diol Range s: Folli cular phase 12.4- 233 pg/mL Ovula tion phase 41.0- 398 pg/mL Lutea l phase 22.3- 341 pg/mL Postm enopa usal< 5-138 pg/mL Healt hy Pregn ant Women 1st Trime ster1 54-32 43 pg/mL 2nd Trime ster1 561-2 1280 pg/mL 3rd Trime ster8 525-> 70116 pg/mL Not Available [facility] (Lab) [address], [place], [address], 02/10/2021 22:04:01 02/08/20 21 02/07/2021 FSH, LH, ESTRA DIOL FSH 9.3 mIU/m L This assay was perfo rmed using [employer] reage nts and test kits. Value s obtai jac with other assay metho ds or kits canno t be used [facility] . Femal es Folli cular : 3.5-1 2.5 mIU/m L Ovula tion: 4.7-2 1.5 mIU/m L Lutea l: 1.7-7 .7 mIU/m L Postm enopa use: 25.8- 134.8 mIU/m L Not Available [facility] (Lab) [address], [place], [address], 02/10/2021 22:04:01 02/08/20 21 02/07/2021 FSH, LH, [...] use: 7.7-5 8.5 mIU/m L Not Available [facility] (Lab) [address], [place], [address], 02/10/2021 22:04:01 02/08/20 21 02/07/2021 HEMOG LOBIN A1C hemoglobin A1C 5.2 % 0-5.6 The Ameri can [employer] bowen [employer] iatio n recom mends that a prima ry goal of thera py tamiko d be a HBA1C of < 7% and that physi cians shoul d reeva luate the treat ment regim en in patie nts with HBA1C value s consi stent ly > 8%. <5.7% Flaquita l 5.7 - 6.4% Incre ased risk for diabe bowen >=6.5 % Diagn ostic of diabe bowen <7.0% Goal of thera py >8.0% Actio n sugge sted Not Available [facility] (Lab) [address], [place], [address], 02/10/2021 22:04:01 02/08/20 21 02/07/2021 TESTO STERO NE, TOTAL , LC/MS /MS testosterone , total 25 NG/dL 2-45 For addit ional infor twan peterson e refer to http: //[facility] julián buchanan stdia gnost ics.c om/fa q/Tot al Testo stero neLCM SMS (This link is being provi ded for infor scoutjeffrey nal/e ducat ional purpo ses only. ) This test was devel oped and its marycarmen tical perfo rmanc e stephen cteri stics have been deter mined by [employer]. It has not been clear ed or appro luis eduardo by the FDA. This assay has been valid ated pursu ant to the CLIA regul ation s and is used for clini jaguar purpo ses. Perfo rming Organ izati on Em butterfieldjeffrey mata: Site ID: [id number] Name: [employer] Mayra joyce Addre ss: [id number] [place] [address] Direc tor: Trent yi M.D. Not Available [facility] (Lab) [address], [place], [address], 02/10/2021 22:04:01 Result Notes None recorded. Procedures Surgical History Date Name Laterality Status Provider Name and Address Organization Details Recorded Time 9 section completed Brittany [facility] 02/07/2021 14:12:04 Imaging Results None recorded. [...] Updated DateTime 02/07/2021 155.58 cm 31.9 kg/m2 61491.7 g Brittany Gonzalez [facility] 02/07/2021 14:07:40 Date Recorded Systolic blood pressure Diastolic blood pressure Provider Name and Address Organization Details Last Updated DateTime 02/07/2021 124 mm[Hg] 80 mm[Hg] Amanda Falcon, [facility]- [address], [place], [address], [facility] 02/07/2021 14:16:57 Social History Question Answer Notes LastModified by Organizat ion Details LastModified Time Tobacco Smoking Status Never Smoker Brittany Gonzalez [facility], [facility] 02/07/2021 14:11:38 What Is Your Level [...] Anxious, Or Unable To Sleep At Night)? [id number] Information not available 02/07/2021 Do You Use [...] SNOMED-CT Code Diagnosis ICD10 Code Diagnosis Note [id number] Amanda Falcon , [facility] [address] [address] 02/07/2021 13:51:48 02/07/2021 14:38:38 Menopausal symptom [id number] N95.1 Today we decided to update labs to ensure no other issues.David vincent schedule WWE & f/u to discuss options for HRT/Non-HR T menopause sx's as long as results indicate this is the issue for her sx's. WWE with f/u to be scheduled. Rec book: The menopause manifesto by Dr. Zandra Salazar Irregular periods [id number] N92.6 LIkely cycle changes are perimenopa use/menopa use.Tamiee r, we will update US to ensure [...] Marquez Member ID Guarantor Name 02/07/2021 1 [facility] (MEDICAID HMO) [id number] Shruthi Evans [id number] Shruthi Evans Notes Date Note Type Note Provider Name and Address Organization Details Recorded Time text/html MenopauseReported bypatient.Onset/Timing :1-6 months Quality:night sweats; [...] for sleep Prozac for anxiety) Amanda Falcon, [facility]- [address], [place], [address], [facility] 02/07/2021 14:37:56 OBGyn Episode Ob Episode Information Episode Created Date Number of Fetuses Patient Bloodtype Patient rh Status Prepregnancy Weight lbs Domestic Partner Domestic Partner Phone Father Name Crane Crew Supervisor Status 02/08/20 21 1 CLOSED Fetus Data First Name Last Name Admitted to NICU Weight (g) Sex Living Outcome Pediatric Complications Fetus ID Race Codes Race Delivery Type 3316.66 4704 M Full Term [id number] Primary Omid Calculation Initial Oimd Date Initial Exam Date Initial Exam Provider [...]
--- OUTSIDE RECORDS SUMMARY | 2024-10-07 08:31 | XMS_ITS | CONTINUITY OF CARE DOCUMENT ---
Author Name harshad patricia Address Unknown Organization [facility] Address [address] [place] [address] Phone [phone] Care Team Providers Care Special Ed Assistant Name Role Phone Lucy SANTOYO, Micha Unavailable [phone] JANICE SANTOYO, JUSTIN Unavailable JANETTE PIECRE MD Unavailable [phone] INSURANCE PROVIDERS Payer name Policy type / Coverage type [employer] party ID [employer] [employer] Medicaid [id number] HEALTHCARE AND FAMILY SERVICES Medicaid 1 [id number]
--- OUTSIDE RECORDS SUMMARY | 2024-10-07 08:31 | XMS_ITS | Data Portability ---
Author Organization [place] - [facility] [place], Main Office Address [address] [place] [address] Care Team Providers Care Insight Leader Name Role Phone EREN FRY Primary Care Provider Assessment No assessment recorded. Plan of Treatment Reminders Order Date Submit Date Provider Last Modified By Organization Details Last Modified Time Details Appointments None recorded. Lab drug screen, urine - screening for presence of phentermine 2023 024 [employer] [facility], [address] [address], [place], [address], 4 10:26:46 Referral orthopedic spine surgeon referral - Please call patient to schedule an appointment . Thank you. 2024 025 [email or web address] [facility] Dept Of Orthopedics, [facility] [place], [address], 5 09:16:52 physical therapist referral - Please call pt to schedule 2024 025 [facility], [address] [facility] [address], [place], [address], 5 19:28:50 psychiatris t referral - Please call patient to schedule an appointment . Thank you. 2023 024 [email or web address] Kaylie Mercedes hnp, [address] [facility] [address], [place], [address], 4 09:04:52 Procedures None recorded. Surgeries None recorded. Imaging XR, lumbosacral spine, 2 or 3 view 2024 025 [email or web address] [facility] ([facility]), [address], [place], [address], 5 16:27:38 Medication Orders ketorolac 60 mg/2 mL intramuscul ar solution 2024 025 Not available 5 17:19:35 hydrocodone 5 mg-acetamin ophen 325 mg tablet 2024 025 [facility]21648, [address], [place], [id number], 5 16:09:26 triamcinolo ne acetonide 40 mg/mL suspension for injection 2024 025 [email or web address] Not available 5 16:00:56 cyclobenzap rine 10 mg tablet 2024 025 [facility] #70938, [address], [place], [id number], 5 16:34:38 Medrol (Patrice) 4 mg tablets in a dose pack 2024 025 [facility], [address], [place], [id number], 5 15:44:50 tramadol 50 mg tablet 2024 025 [facility] #75805, [address], [place], [id number], 5 16:05:23 phentermine 15 mg capsule 2023 024 [facility], [address], [place], [id number], 15:48:57 trazodone 50 mg tablet [address] [facility] #99557, [address], [place], [id number], 4 15:49:08 sulfamethox azole 800 mg-trimetho prim 160 mg tablet [address] [facility] #52495, [address], [place], [id number], 15:49:04 phentermine 15 mg capsule [address] [facility] #28780, [address], [place], [id number], 15:48:57 Patient TargetsNo targets recorded. Patient InstructionsNo instructions recorded. Reason for Referral Psychiatrist Referral for Mi xed anxiety and depressive disorder Please call patient to schedule an appointment. Thank you. Referring Physician: Sharon Leonardo [facility] Medicine, Encounter Date: 04/29/2024 Physical Therapist Referral for Lumbago with sciatica Please call pt to schedule Referring Physician: Sharon Leonardo [facility] Ciera, Encounter Date: 07/09/2024 Orthopedic Spine Surgeon Ref erral for Lumbar spondylosis Please call patient to schedule an appointment. Thank you. Referring Physician: Sharon Leonardo [facility] Medicine, Encounter Date: 07/24/2024 Results Created Date Observation Date Name Description Value Unit Range Abnormal Flag Note LastModifiedBy Organization Detail LastModifiedTime 07/09/1907/09/2024 urina lysis , dipst ick Leukocytes (reference range: negative gaye/ l) Negati ve Not Available [facility] [address] [facility], [place], [address], 07/09/2024 16:57:48 07/09/1907/09/2024 urina lysis , dipst ick Nitrite (reference rage: negative mg/dl) negati ve Not Available [address], [address], 07/09/2024 16:57:48 07/09/19 25 07/09/2024 urina lysis , dipst ick Urobilinogen (reference range: 0.2-1 mg/dl) 0.2 Not Available [address], [address], 07/09/2024 16:57:48 07/09/19 25 07/09/2024 urina lysis , dipst ick Protein (reference range: negative mg/dl) Negati ve Not Available [address], [address], 07/09/2024 16:57:48 07/09/19 25 07/09/2024 urina lysis , dipst ick pH (reference range: 5-7) 6.5 Not Available [address], [address], 07/09/2024 16:57:48 07/09/19 25 07/09/2024 urina lysis , dipst ick Blood (reference range: negative Ted/ l) Negati ve Not Available [address], [address], 07/09/2024 16:57:48 07/09/19 25 07/09/2024 urina lysis , dipst ick Specific [place] (reference range: 1.005-1.030) 1.010 Not Available [address], [address], 07/09/2024 16:57:48 07/09/19 25 07/09/2024 urina lysis , dipst ick Ketone (reference range: negative mg/dl) Negati ve Not Available [address], [address], 07/09/2024 16:57:48 07/09/19 25 07/09/2024 urina lysis , dipst ick Bilirubin (reference range: negative mg/dl) Negati ve Not Available [address], [address], 07/09/2024 16:57:48 07/09/19 25 07/09/2024 urina lysis , dipst ick Glucose (reference range: negative mg/dl) Negati ve Not Available [address], [address], 07/09/2024 16:57:48 07/09/19 25 07/09/2024 urina lysis , dipst ick Appearance Clear Not Available [address], [address], 07/09/2024 16:57:48 07/09/19 25 07/09/2024 urina lysis , dipst ick Color Yellow Not Available [address], [address], 07/09/2024 16:57:48 12/29/19 24 12/29/2023 CT, abdom en + pelvi s, w/ contr ast No observ ation record ed. [email or web address] [address], [address], 12/31/2023 08:29:42 07/11/19 25 07/11/2024 CT, lumba r spine , w/o contr ast No observ ation record ed. [email or web address] [address], [address], 07/14/2024 09:32:48 08/18/19 25 08/18/2024 XR, chest , 2 view No observ ation record ed. [email or web address] [facility] [address], [place], [address], 08/18/2024 12:17:36 Result Notes None recorded. Problems Name Problem SNOMED Code Status Onset Date Resolution Date Notes Provider Name and Address Organization Details Recorded Time Bipolar disorder 28762776 Active 2021 Not Available [facility] 3 00:58:00 Alcohol abuse 34553351 Active 2022 Not Available [facility] 3 00:58:00 Irritable bowel syndrome with diarrhea 419757804 Active 2021 Not Available [facility] 3 00:58:01 Anxiety disorder 072565105 Active 2021 Not Available [facility] 3 00:58:01 Depressive disorder 77319479 Active 2021 Not Available [facility] 3 00:58:01 Hypertensi ve disorder 85464920 Active 2021 Not Available [facility] 3 00:58:01 Obesity 402063476 Active 2021 Not Available [facility] 3 00:58:01 Alcohol dependence 09457518 Active 2022 Not Available [facility] 3 00:58:01 Chronic insomnia 207106927 Active 2021 Not Available [facility] 3 00:58:01 Seasonal allergic rhinitis 865251213 Active 2022 Eren Fry MD [address], [place], [address] , [employer] 3 15:18:38 Impacted cerumen of bilateral ears 0837429545181 108 Active 2023 Eren Fry MD [address], [address], [place], [address] , [employer] 4 11:02:24 Labial cyst 223159460 Active 2023 GAIL Prakash [address], [address], [place], [address] , [facility] [employer] [facility] [employer] [facility] 4 09:42:05 Insomnia 438288770 Active 2023 GAIL Prakash [address], [place], [address] , [facility] [employer] [facility] [employer] [facility] 4 09:45:01 Mixed anxiety and depressive disorder 389529256 Active 2023 GAIL Prakash [address], [address], [place], [address] , [facility] [employer] [facility] [employer] 4 16:16:57 Lumbago with sciatica 891874789 Active 2024 GAIL Prakash [address], [address], [place], [address] , [facility] [employer] [facility] [employer] [facility] 5 16:21:33 Flank pain 987710716 Active 2024 GAIL Prakash [address], [address], [place], [address] , [facility] [employer] [facility] 5 16:57:45 Lumbar spondylosi s 154790052 Active 2024 GAIL Prakash [address], [address], [place], [address] , [facility] [employer] [facility] 5 15:59:19 Problem Notes None recorded. Procedures Surgical History Date Name Laterality Status Provider Name and Address Organization Details Recorded Time 4 Date of Last Pap Smear completed Jerica Duque RN [facility] [employer] 07/09/2024 16:17:04 delivery completed Not Available [facility] 08/24/2022 00:57:15 Imaging Results Imaging Date Name Status LastModified by Organiz ation Details LastModified Time 12/29/2023 CT, abdomen + pelvis, w/ contrast completed [address] [place] [address], [address], 12/31/2023 08:29:42 07/11/2024 CT, lumbar spine, w/o contrast completed [address] [facility] [address], [place], [address], 07/14/2024 09:32:48 08/18/2024 XR, chest, 2 view completed [address] [facility] [address], [place], [address], 08/18/2024 12:17:36 Procedure Notes None recorded. Medical Equipment None [...] 1 TABLET BY MOUTH EVERY 8 HOURS active Not Available Not Available No t Available famotidin e 40 mg tablet TAKE [...] e 50 mcg/actua tion nasal spray,denys pension [place] 2 sprays every day by intranas al [...] 1 CAPSULE BY MOUTH EVERY DAY DIRECTED 2024 active Not Available Not Available Not Avai lable amoxicill in 875 mg-potass ium clavulana te 125 mg tablet TAKE 1 TABLET BY MOUTH TWICE DAILY active Not Available Not Available No t Available escitalop abhinav 10 mg tablet TAKE [...] Updated DateTime 4 154.94 cm 30.3 kg/m2 02439.2 3 g 97.9 [degF] 66 /min 20 /min 98 % 98 % 126 mm[Hg] 80 mm[Hg] Arjun Pennington [facility] 4 11:36:02 Date Recorded Body height Body mass index (BMI) Body weight Body temperature Heart rate Respiratory rate Oxygen saturation Oxygen saturation in Arterial blood by Pulse oximetry Pain severity - 0-10 verbal numeric rating [Score] - Reported Systolic blood pressure Diastolic blood pressure Provider Name and Address Organization Details Last Updated DateTime 4 154.94 cm 30.8 kg/m2 39023.9 1 g 97.2 [degF] 92 /min 20 /min 99 % 99 % 0 122 mm[Hg] 78 mm[Hg] Jerica Duque RN [facility] 4 09:33:14 Date Recorded Body height Body mass index (BMI) Body weight Body temperature Heart rate Respiratory rate Oxygen saturation Oxygen saturation in Arterial blood by Pulse oximetry Pain severity - 0-10 verbal numeric rating [Score] - Reported Systolic blood pressure Diastolic blood pressure Provider Name and Address Organization Details Last Updated DateTime 4 154.94 cm 31.7 kg/m2 96254.0 8 g 97.2 [degF] 90 /min 24 /min 99 % 99 % 0 120 mm[Hg] 80 mm[Hg] Jerica Duque RN [facility] 4 15:52:06 Date Recorded Body height Body mass index (BMI) Body weight Body temperature Heart rate Respiratory rate Oxygen saturation Oxygen saturation in Arterial blood by Pulse oximetry Pain severity - 0-10 verbal numeric rating [Score] - Reported Provider Name and Address Organization Details Last Updated DateTime 5 154.94 cm 31 kg/m2 66566.1 5 g 98 [degF] 108 /min 24 /min 98 % 98 % 8 Jerica Duque RN [facility] 5 16:13:15 Date Recorded Body height Body mass index (BMI) Body weight Body temperature Heart rate Respiratory rate Oxygen saturation Oxygen saturation in Arterial blood by Pulse oximetry Pain severity - 0-10 verbal numeric rating [Score] - Reported Systolic blood pressure Diastolic blood pressure Provider Name and Address Organization Details Last Updated DateTime 5 154.94 cm 30.3 kg/m2 74486.8 8 g 97.2 [degF] 100 /min 20 /min 99 % 99 % 8 120 mm[Hg] 82 mm[Hg] Jerica Duque RN [facility] 5 15:48:43 Social History Question Answer Notes LastModified by Organization Details LastModified Time Tobacco Smoking Status Never Smoker Not Available [employer] 08/24/2022 00:57:11 Do You Have An Advance Directive? No MIGRATION.0301 [id number] Information not available 08/24/2022 What Is Your Level Of Alcohol Consumption? Heavy Stopped Drinking -07/17/22 Relapsed 2023 Information not available 04/29/2024 Do You Wear A Helmet When Biking? No MIGRATION.0301 [id number] Information not available 08/24/2022 What Is Your Level Of Caffeine Consumption? Moderate MIGRATION.0301 623458 Information not available 08/24/2022 In The 14 Days Before Symptom Onset, Have You Had Close Contact With A Laboratory-confi rmed COVID-19 While That Case Was Ill? No MIGRATION.0301 993079 Information not available 08/24/2022 In The 14 Days Before Symptom Onset, Have You Had Close Contact With A Person Who Is Under Investigation For COVID-19 While That Person Was Ill? No MIGRATION.0301 [id number] Information not available 08/24/2022 What Type Of Diet Are You Following? REGULAR MIGRATION.0301 384707 Information not available 08/24/2022 What Is The Highest Grade Or Level Of School You Have Completed Or The Highest Degree You Have Received? 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 No MIGRATION.0301 606797 Information not available 08/24/2022 What Is The Fluoride Status Of Your Home? Unknown MIGRATION.0301 928512 Information not available 08/24/2022 Do You Use Insect Repellent Routinely? No MIGRATION.0301 440262 Information not available 08/24/2022 Where Do You Live? SingleLevelHouse MIGRATION.0301 998561 Information not available 08/24/2022 Are You Following A Low Salt Diet? No MIGRATION.0301 659950 Information not available 08/24/2022 Do You Have A Medical Power Of Architectural Designer? No MIGRATION.0301 561914 Information not available 08/24/2022 Do You Have Any Pets? No MIGRATION.0301 560886 Information not available 08/24/2022 What Is Your Relationship Status? Single MIGRATION.0301 957303 Information not available 08/24/2022 Do You Use Your Seat Belt Or Car Seat Routinely? Yes MIGRATION.0301 030161 Information not available 08/24/2022 Do You Have Smoke And Carbon Monoxide Detectors In Your Home? Yes MIGRATION.0301 172559 Information not available 08/24/2022 Are You Passively Exposed To Smoke? No MIGRATION.030 359894 Information not available 08/24/2022 Are There Any Smokers In Your House? No MIGRATION.0301 944629 Information not available 08/24/2022 Do You Participate In Social Media? Yes MIGRATION.030 408771 Information not available 08/24/2022 Do You Feel Stressed (tense, Restless, Nervous, Or Anxious, Or Unable To Sleep At Night)? [id number] Information not available 09/26/2023 Do You Use Sunscreen Routinely? No MIGRATION.030 897258 Information not available 08/24/2022 Have You Recently Traveled Abroad? No MIGRATION.030 694604 Information not available 08/24/2022 Do You Have Any Dietary Restrictions? Yes MIGRATION.030 590992 Information not available 08/24/2022 Sex: Female Functional Status Question Answer Note LastModified by Organizat ion Details LastModified Time What is your exercise level? Occasional MIGRATION.[id number] 26 Information not available 08/24/2022 Mental Status None recorded. Family History Relationship Description Onset Age of this Age Resolved Age Notes LastModified by Organization Details LastModified Time Mother Hypertensive disorder MIGRATION.030 [id number] Not available 08/24/2022 00:57:17 Mother Heart disease MIGRATION.370 [id number] Not available 08/24/2022 00:57:17 Medical History Condition Response BLINDNESS N RHEUMATIC FEVER N KIDNEY STONES N BLADDER PROBLEMS N MRSA N OTHER # 1 N POLIO N LUNG DISEASE/DISORDER N HISTORY OF DRUG ABUSE N COPD N RADIATION / CHEMOTHERAPY N Other # 2 N BLOOD DISEASES N SURGERY N EAR OR HEARING PROBLEMS N MUMPS N SHINGLES N BOWEL PROBLEMS N FEMALE PROBLEMS / INFECTIONS N DEPRESSION (INCLUDING POST ) Y STROKE/TIA N THYROID DISEASE N ULCERS N BENIGN PROSTATIC HYPERPLASIA N MEASLES N CERVICALGIA N TB SKIN TEST N HYPOTENSION N MYOCARDIAL INFARCTION N OBESITY N PARAPELGIA N GERD/NAUSEA N ANEURYSM N URINARY/BLADDER/KIDNEY PROBLEMS [...] HAVE YOU BEEN HOSPITALIZED OR SEEN IN [facility] ER IN THE PAST YEAR ? N ATHEROSCLEROSIS [...] SNOMED-CT Code Diagnosis ICD10 Code Diagnosis Note [id number] [address] [address] 09/26/2021 00:00:00 09/26/2021 15:24:[id number] [address] 11/17/2021 00:00:00 11/17/2021 12:35:[id number] [address] 07/11/2022 00:00:00 07/11/2022 15:26:[id number] [address] 08/14/2022 00:00:00 08/14/2022 16:23:46 [id number] Eren Fry MD [address] [address] 09/11/2022 15:57:47 09/11/2022 16:21:22 Alcohol dependence 17926867 F10.20 Depressive disorder 3548 9007 F32.A Anxiety disorder 4964207 06 F41.9 Chronic insomnia 7511264 04 F51.04 Obesity 021436674 E66.9 [id number] Eren Fry MD [address] [address] 10/25/2022 08:50:49 10/25/2022 09:14:51 Anxiety disorder 248849882 F41.9 Alcohol dependence 85510 003 F10.20 History Depressive disorder 3548 9007 F32.A Chronic insomnia 9474754 04 F51.04 Obesity 209633025 E66.9 [id number] Eren Fry MD [address] [address] 01/03/2023 12:27:26 01/03/2023 13:54:15 Abscess of labia 198175838 N76.4 Rt labia Nausea 298160224 R11.0 Alcohol dependence 58802 003 F10.20 [id number] Eren Fry MD [address] [address] 01/15/2023 16:20:49 01/15/2023 17:06:48 Anxiety disorder 410839475 F41.9 Depressive disorder 3548 9007 F32.A Chronic insomnia 3160299 04 F51.04 Alcohol dependence 07256 003 F10.20 Obesity 299141720 E66.9 [id number] Eren Fry MD [address] [address] 06/06/2023 15:02:51 06/06/2023 15:38:59 Alcohol dependence 92900861 F10.20 Anxiety disorder 06 F41.9 Depressive disorder 3548 9007 F32.A Chronic insomnia 1018327 04 F51.04 Obesity 637911467 E66.9 Seasonal a llergic rhinitis 981405573 J30.2 [id number] Eren Fry MD [address] [address] 07/02/2023 16:52:42 07/02/2023 17:39:54 Alcohol dependence 86501877 F10.20 Depressive disorder 8 9007 F32.A Anxiety disorder F41.9 Chronic insomnia 8209844 04 F51.04 Obesity 501734910 E66.9 Seasonal a llergic rhinitis 756933828 J30.2 [id number] Eren Fry MD [address] [address] 08/01/2023 10:50:50 08/01/2023 11:23:18 Adult health examination 707132818 Z00.00 Obesity 135694473 E66.9 Alcohol dependence 96243 003 F10.20 Irritable bowel syndrome with diarrhea 964684517 K58.0 Screening for disorder 521302237 Z13.9 Impacted c erumen of bilateral ears 9766178191 295402 H61.23 [id number] Sharon Leonardo [employer] [address] [address] 09/10/2023 14:49:49 09/10/2023 15:27:44 Alcohol dependence 59896951 F10.20 Depressive disorder 8 9007 F32.A Anxiety disorder F41.9 Chronic insomnia 6600061 04 F51.04 Impacted c erumen of bilateral ears 6748915019 819000 H61.23 [id number] Sharon Leonardo [employer] [address] [address] 09/26/2023 14:50:04 09/26/2023 15:43:12 Depressive disorder 68466461 F32.A Follow up in 6 weeks [id number] GAIL Prakash [address] [address] 10/17/2023 11:29:08 10/17/2023 11:56:05 Obesity 668458519 E66.9 Drug of abuse screen 897 61046 Z02.83 [id number] JOVON Prakash[address] [address] 03/10/2024 09:25:33 03/10/2024 09:52:39 Labial cyst 474594447 N90.7 Obesity 414626162 E66.9 Insomnia 898671176 G47.0 0 [id number] GAIL Prakash [address] [address] 04/29/2024 15:43:13 04/29/2024 16:38:29 Mixed anxiety and depressive disorder 444078118 F41.8 wellbutrin offered, patient declined due to previous negative reaction [id number] GAIL Prakash [address] [address] 07/09/2024 15:58:42 07/09/2024 16:41:08 Lumbago with sciatica 286567212 M54.40 Recommende d ibuprofen and tylenol for pain and inflammati onIs taking Tramadol, advised not to take Tramadol with ibuprofen. Take sparingly. Pt states severe pain, cannot walk or complete a work shift [id number] GAIL Prakash [address] [address] 07/24/2024 15:29:04 07/24/2024 16:17:46 Lumbar spondylosis 121034426 M47.[address] on 07/11/24Pai n is unmanageab le, struggling with daily life.Is taking 1/2 tab of hydrocodon e 5/325 mg Lumbago with sciatica 20 6184716 M54.40 Recommende d ibuprofen and tylenol for [...] Marquez Member ID Guarantor Name 10/17/2023 1 [facility] (MEDICAID HMO) [id number] 0003 Shruthi Evans [id number] Shruthi M Evans 03/10/2024 1 [facility] (MEDICAID HMO) [id number] 0003 Shruthi Evans [id number] Shruthi M Evans 04/29/2024 1 [facility] (MEDICAID HMO) [id number] 0003 Shruthi Evans [id number] Shruthi M Evans 07/09/2024 1 [facility] (MEDICAID HMO) [id number] 0003 Shruthi Evans [id number] Shruthi M Evans 07/24/2024 1 [facility] (MEDICAID HM) [id number] 0003 Shruthi Evans [id number] Shruthi M Evans Notes Date Note Type Note Provider [...] is doing smaller portions and low carbs. GAIL Prakash [address], [place], [address], [employer] 10/17/2023 12:01:51 03/10/2024 text/html Shruthi Slater is a 43 year old female patient here today with concerns of a cyst She has had this cyst for 3 months. She had a surgery in the hospital, then she saw Dr. Ramires at [facility] and has had a cyst drained twice in the office. She states this cyst is continuously draining with green purulent drainage. She has taken Augmentin with no relief. Advised to FU with surgeon again. Abx given GAIL Prakash [address], [place], [address], [employer] 03/10/2024 09:50:35 04/29/2024 text/html Shruthi Evans i s a 43 year old female patient here today to FU on medications.Receive d Mattil yesterday at [facility] that she is always having mood swings/emotional [...] her last visit. GAIL Prakash [address], [place], [address], [employer] 04/29/2024 16:29:21 07/09/2024 text/html Shruthi Evans i s a 43 year old female patient here today for pain. Concerns with pain in sacral area. Does note that the day before she the pain began she fell flat on her bottom.She has concerns this is a kidney infection. UA clean. GAIL Prakash [address], [place], [address], [employer] [facility] 07/09/2024 16:56:58 07/24/2024 text/html Shruthi Evans i [...] 07/09/24 which she found to increase pain. GAIL Prakash [address], [facility] [address], [place], [address], [employer] 07/24/2024 16:13:19 OBGyn Episode No OBEpisode recorded.
--- NOTE | 2024-10-07 08:38 | ED_ITS ---
HPI - General Adult General Chief complaint: Alcohol Stated complaint: severe alcohol poisoning Time Seen by Provider: 10/07/24 08:26 History of Present Illness HPI narrative: Patient is a 43-year-old female who presents emergency department with chief complaint of alcohol withdrawal. Patient reports that she drank a 5th yesterday at 8:00 a.m. and reports that today she had a 1 out shot about 3:00 a.m. patient states that she has decided that she wants to stop drinking she also reports that she has had abdominal discomfort has had nausea vomiting Related Data Allergies Allergy/AdvReac Type Severity Reaction Status Date / Time No Known Allergies Allergy Verified 10/07/24 08:37 Review of Systems 2 Review of Systems: A 10 system review of systems was completed on the patient and is negative except for what is stated in the HPI. Nursing and ancillary documentation was reviewed. [facility] Past Medical History Medical History Preeclampsia cardiomyopathy Alcohol abuse Depression Surgical History Surgical History History of incision and drainage I&D of perianal abscess on 12/30/23. KM History of section Family History Family History Father Diabetes mellitus Mother Chronic obstructive pulmonary disease Heart disease Grandparent Lung cancer Social History Social History Social History: Surrogate medical decision maker: Shannon Lopez, friend. Code status: Full code. Smoking status: Never smoker Alcohol intake: current Drinks per week: 28 Alcohol use details: Taking Vivitrol injections monthly to stop her drinking. Substance use: never Substance use type: marijuana Other substance usage details: Daily Do You Feel Safe in your Home?: Yes Lack of Transportation: YES Lack of Food: Never True Current Housing: I Have Housing Concerned About Future Housing: No Difficulty Paying Gas/Electric Bills: No Difficulty Paying for Meds: No Currently Unemployed: No Education: High School Diploma/GED Difficulty w/ Childcare or Family Care: No Living arrangements: with family Additional living arrangements comments: Lives in [place]. Has a 14-year-old son. Additional occupation/education comments: Works at [employer]. Spiritual care concerns: Yes Exam 2 Narrative: GENERAL: Well-appearing, well-nourished, and in no acute distress. HEAD: Normocephalic, atraumatic. EYES: PERRLA and EOMI. ENT: Nares clear, no rhinorrhea or epistaxis. Mucous membranes moist. NECK: Supple. CHEST: Clear to auscultation. No respiratory distress. HEART: Regular rate and rhythm. No murmur heard. Normal peripheral pulses. ABDOMEN: Soft, tenderness to palpation , nondistended, normal active bowel sounds. EXTREMITIES: Normal range of motion. No edema. SKIN: Warm, dry, no rash. NEURO: No focal deficits. Alert and oriented x3. PSYCH: Normal mood and affect. Course Vital Signs Vital signs: Vital Signs Temperature 36.6 C 10/07/24 08:29 Pulse Rate 136 H 10/07/24 08:29 Respiratory Rate 25 H 10/07/24 08:29 Blood Pressure 161/121 H 10/07/24 08:29 Pulse Oximetry 99 10/07/24 08:29 Oxygen Delivery Room Air 10/07/24 08:29 Temperature 36.6 C 10/07/24 08:29 Pulse Rate 120 H 10/07/24 10:46 Respiratory Rate 23 H 10/07/24 10:46 Blood Pressure 163/97 H 10/07/24 10:46 Pulse Oximetry 99 10/07/24 10:46 Oxygen Delivery Room Air 10/07/24 08:29 Medical Decision Making Vital Signs Vital Signs: Vital Signs Temperature 36.6 C 10/07/24 08:29 Pulse Rate 136 H 10/07/24 08:29 Respiratory Rate 25 H 10/07/24 08:29 Blood Pressure 161/121 H 10/07/24 08:29 Pulse Oximetry 99 10/07/24 08:29 Oxygen Delivery Room Air 10/07/24 08:29 Temperature 36.6 C 10/07/24 08:29 Pulse Rate 120 H 10/07/24 10:46 Respiratory Rate 23 H 10/07/24 10:46 Blood Pressure 163/97 H 10/07/24 10:46 Pulse Oximetry 99 10/07/24 10:46 Oxygen Delivery Room Air 10/07/24 08:29 Lab Data 10/07/24 08:39 04/15/25 08:39 Labs: Lab Results 10/07/24 10/07/24 10/07/24 Range/Units 08:39 08:43 08:45 WBC 13.0 H (4.5-10.0) K/mm3 RBC 4.69 (4.2-5.4) M/mm3 Hgb 15.5 H (12.0-15.0) g/dL Hct 45.6 (37.0-47.0) % MCV 97.2 (80-100) fl MCH 33.0 (26-34) pg MCHC 34.0 (32-36) g/dl RDW 13.1 (11.5-14.5) % Plt Count 222 D (150-375) k/mm3 MPV 9.6 (7.4-10.4) fl Immature Gran % (Auto) 0.4 (0-0.5) % Neut % (Auto) 75.7 H (45.5-73.1) % Lymph % (Auto) 18.7 (18.3-44.2) % Mckenzie % (Auto) 4.8 (2.6-8.5) % Eos % (Auto) 0.1 (0-4.4) % Baso % (Auto) 0.3 (0.2-1.2) % Lymph # (Auto) 2.42 (0.9-3.2) K/mm3 Mckenzie # (Auto) 0.6 (0.1-0.6) K/mm3 Eos # (Auto) 0.0 (0-0.3) K/mm3 Baso # (Auto) 0.0 (0.0-0.1) K/mm3 Abs Immat Gran (auto) 0.05 H (0.00-0.031) K/mm3 Absolute Neuts (auto) 9.8 H (1.3-6.7) K/mm3 Absolute Nucleated RBC 0.000 (0.0-0.012) K/mm3 Nucleated RBC % 0.0 (0.0-0.2) % PT 12.9 (11.1-14.7) Seconds INR 0.9 Sodium 132 L (137-145) mmol/L Potassium 3.8 (3.4-5.0) mmol/L Chloride 94 L (98-107) mmol/L Carbon Dioxide 9 L (22-30) mmol/L Anion Gap 29 H (4-12) mmol/L BUN 9 D (7-17) mg/dL Creatinine 0.70 (0.7-1.0) mg/dL Estim Creat Clear Calc 84 ml/min Estimated GFR > 60 (59 - ) Glucose 68 (65-110) mg/dL POC Capillary Glucose (65-105) mg/dl Lactic Acid (0.7-2.0) mmol/L Calcium 8.6 (8.4-10.2) mg/dL Phosphorus 5.4 H (2.5-4.5) mg/dL Magnesium 2.0 (1.6-2.3) mg/dL Total Bilirubin 0.9 (0.2-1.3) mg/dL AST 64 H (14-36) U/L ALT 44 H (6-35) U/L Alkaline Phosphatase 81 (38-126) U/L Total Protein 8.0 (6.3-8.2) g/dL Albumin 4.7 (3.5-5.1) g/dL Lipase 43 (23-300) U/L Beta-Hydroxybutyrate/Acetoacetate (0.02-0.27) mmol/L POC Urine HCG, Qual Negative (Negative) Urine Opiates Screen Negative (Negative) Urine Methadone Screen Negative (Negative) Ur Barbiturates Screen Negative (Negative) Ur Phencyclidine Scrn Negative (Negative) Ur Amphetamine Screen Negative (Negative) U Benzodiazepines Scrn Negative (Negative) Urine Cocaine Screen Negative (Negative) U Cannabinoids Screen Positive A (Negative) Ethyl Alcohol 117 (<10) mg/dL 10/07/24 10/07/24 Range/Units 08:46 09:29 WBC (4.5-10.0) K/mm3 RBC (4.2-5.4) M/mm3 Hgb (12.0-15.0) g/dL Hct (37.0-47.0) % MCV (80-100) fl MCH (26-34) pg MCHC (32-36) g/dl RDW (11.5-14.5) % Plt Count (150-375) k/mm3 MPV (7.4-10.4) fl Immature Gran % (Auto) (0-0.5) % Neut % (Auto) (45.5-73.1) % Lymph % (Auto) (18.3-44.2) % Mckenzie % (Auto) (2.6-8.5) % Eos % (Auto) (0-4.4) % Baso % (Auto) (0.2-1.2) % Lymph # (Auto) (0.9-3.2) K/mm3 Mckenzie # (Auto) (0.1-0.6) K/mm3 Eos # (Auto) (0-0.3) K/mm3 Baso # (Auto) (0.0-0.1) K/mm3 Abs Immat Gran (auto) (0.00-0.031) K/mm3 Absolute Neuts (auto) (1.3-6.7) K/mm3 Absolute Nucleated RBC (0.0-0.012) K/mm3 Nucleated RBC % (0.0-0.2) % PT (11.1-14.7) Seconds INR Sodium (137-145) mmol/L Potassium (3.4-5.0) mmol/L Chloride (98-107) mmol/L Carbon Dioxide (22-30) mmol/L Anion Gap (4-12) mmol/L BUN (7-17) mg/dL Creatinine (0.7-1.0) mg/dL Estim Creat Clear Calc ml/min Estimated GFR (59 - ) Glucose (65-110) mg/dL POC Capillary Glucose 70 (65-105) mg/dl Lactic Acid 6.0 H* (0.7-2.0) mmol/L Calcium (8.4-10.2) mg/dL Phosphorus (2.5-4.5) mg/dL Magnesium (1.6-2.3) mg/dL Total Bilirubin (0.2-1.3) mg/dL AST (14-36) U/L ALT (6-35) U/L Alkaline Phosphatase (38-126) U/L Total Protein (6.3-8.2) g/dL Albumin (3.5-5.1) g/dL Lipase (23-300) U/L Beta-Hydroxybutyrate/Acetoacetate 3.74 H (0.02-0.27) mmol/L POC Urine HCG, Qual (Negative) Urine Opiates Screen (Negative) Urine Methadone Screen (Negative) Ur Barbiturates Screen (Negative) Ur Phencyclidine Scrn (Negative) Ur Amphetamine Screen (Negative) U Benzodiazepines Scrn (Negative) Urine Cocaine Screen (Negative) U Cannabinoids Screen (Negative) Ethyl Alcohol (<10) mg/dL Critical Care Time Critical Care Time Critical Care Time: Yes Total Critical Care Time: 35 Discharge Plan Discharge Clinical Impression: Alcoholic ketoacidosis, Alcohol abuse, Nausea and vomiting, Alcohol withdrawal Patient Disposition: Still a Patient Condition: Stable Patient Language: Lithuanian Prescriptions: No Action amoxicillin-pot clavulanate 875-125 mg tablet 1 tablet PO BID Qty: 28 0RF Follow-up/Referrals: Ang,MD Eren [Primary Care Provider] -
--- OUTSIDE RECORDS SUMMARY | 2024-10-07 08:40 | XMS_ITS | Continuity of Care Document ---
Author Organization [facility] Address [address] [place] [address] [place] [address] Phone Care Team Providers [employer] Name Role Phone Philip Julio MD Unavailable [...] Diagnoses Date Provider Providers Copied on Encounter [facility], [address] [place], [address], tel:[phone] [facility] Medicine No Information 2 Sumanth Palacios. [address], [address], [place], [place], [address] , [place]. tel:[phone] PREV VISIT, EST, AGE 18-39 [facility], [address], [place], [place], [address], [place] tel:[phone] [facility] physical (chief complaint) Encounter for general adult medical examination without abnormal findings 2 Sumanth Palacios. [address], [address], [place], [place], [address] , [place]. tel:[phone] OFFICE/OUTPA TIENT VISIT, EST [facility], [address] [place] [address], [place] tel:[phone] [facility] Medicine alcohol1 (chief complaint) weight gain1 (chief complaint) HCT (chief complaint) HLP (chief complaint) Generalized Anxiety DisorderAlcohol dependence, in remissionHyperlipid emiaSecondary polycythemiaAbnorma l weight gain 1 Sumanth Palacios. [address], [address], [place], [place], [address] , [place]. tel:[phone] OFFICE/OUTPA TIENT VISIT, [facility], [address], [place], [place], [address], [place] tel:[phone] [facility] Alcohol1 (chief complaint) anxitey1 (chief complaint) GERD1 (chief complaint) Alcohol dependence with intoxication, unspecifiedGenerali zed Anxiety DisorderGastritis, unspecified, without bleeding 1 Sumanth Palacios. [address], [address], [place], [place], [address] , [place]. tel:[phone] OFFICE/OUTPA TIENT VISIT, [facility], [address], [place], [place], [address], [place] tel:[phone] [facility] GERD w/o esophagitisAlcohol dependence, in remissionGeneralize d Anxiety Disorder 1 Sumanth Palacios. [address], [address], [place], [place], [address] , [place]. tel:[phone] [facility], [address], [place], [place], [address], [place] tel:[phone] [facility] anxiety1 (chief complaint) alcohol1 (chief complaint) GERD1 (chief complaint) Generalized Anxiety DisorderAlcohol dependence, in remissionGERD w/o esophagitis 1 Sumanth Palacios. [address], [address], [place], [place], [address] , [place]. tel:[phone] OFFICE/OUTPA TIENT VISIT, [facility], [address], [place], [place], [address], [place] tel:[phone] [facility] anxiety1 (chief complaint) alcohol1 (chief complaint) hirsutism1 (chief complaint) hyponaremi a1 (chief complaint) weight gain1 (chief complaint) HirsutismGeneralize d Anxiety DisorderAlcohol dependence, in remissionAbnormal weight gainHyponatremia 1 Sumanth Palacios. [address], [address], [place], [place], [address] , [place]. tel:[phone] OFFICE/OUTPA TIENT VISIT, [facility], [address], [place], [place], [address], [place] tel:[phone] [facility] alcohol1 (chief complaint) anxiety1 (chief complaint) hirsutism1 (chief complaint) hyponatrem ia1 (chief complaint) HirsutismGeneralize d Anxiety DisorderAlcohol dependence, in remissionHyponatrem ia 1 Sumanth Lin [address], [address], [place], [place], [address] , [place]. tel:[phone] Referring Provider: Vaibhav Esqueda [address], [place], [place], [address]. tel:[phone] OFFICE/OUTPA TIENT VISIT, [facility], [address] [place] [address] [address], [place], [place], [address], [place] tel:[phone] [facility] anxiety1 (chief complaint) hirsutism1 (chief complaint) insomnia1 (chief complaint) HirsutismGeneralize d Anxiety DisorderInsomnia 0 Sumanth Lin [address], [address], [place], [place], [address] , [place]. tel:[phone] Referring Provider: Vaibhav Esqueda [address], [place], [place], [address]. tel:[phone] OFFICE/OUTPA TIENT VISIT, [facility], [address], [place], [place], [address], [place] tel:[phone] [facility] anxiety1 (chief complaint) weight (chief complaint) Abnormal weight gainGeneralized Anxiety Disorder 0 Sumanth Lin [address], [place], [place], [address] , [place]. tel:[phone] Referring Provider: Vaibhav Esqueda [address], [place], [place], [address]. tel:[phone] OFFICE/OUTPA TIENT VISIT, [facility], [address], [place], [place], [address], [place] tel:[phone] [facility] anxiety1 (chief complaint) weight gain1 (chief complaint) Generalized Anxiety DisorderAbnormal weight gain 0 Sumanth Palacios. [address], [address], [place], [place], [address] , [place]. tel:[phone] Referring Provider: Philip Julio, [address], [place], [place], [address]. tel:[phone] OFFICE/OUTPA TIENT VISIT, [facility], [address], [place], [place], [address], [place] tel:[phone] [facility] HLP (chief complaint) hCT (chief complaint) glucose1 (chief complaint) anxiety1 (chief complaint) weight gain1 (chief complaint) HyperlipidemiaHyper glycemiaSecondary polycythemiaGeneral ized Anxiety DisorderAbnormal weight gain Feb- 0 Sumanth Palacios. [address], [address], [place], [place], [address] , [place]. tel:[phone] Referring Provider: Philip Julio [address], [place], [place], [address]. tel:[phone] OFFICE/OUTPA TIENT VISIT, [facility], [address], [place], [place], [address], [place] tel:[phone] [facility] anxiety1 (chief complaint) HTN (chief complaint) Generalized Anxiety DisorderAbnormal weight lossHirsutism Jan- 0 Sumanth Palacios. [address], [address], [place], [place], [address] , [place]. tel:[phone] Referring Provider: Philip Julio [address], [place], [place], [address]. tel:[phone] OFFICE/OUTPA TIENT VISIT, [facility], [address], [place], [place], [address], [place] tel:[phone] [facility] anxiety1 (chief complaint) weight loss1 (chief complaint) Generalized Anxiety DisorderAbnormal weight loss 0 0 Sumanth Palacios. [address], [address], [place], [place], [address] , [place]. tel:[phone] Referring Provider: Philip Julio, [address], [place], [place], [address]. tel:[phone] OFFICE/OUTPA TIENT VISIT, [facility], [address], [place], [place], [address], [place] tel:[phone] [facility] work excuse1 (chief complaint) Fatigue 0 Sumanth Palacios. [address], [address], [place], [place], [address] , [place]. tel:[phone] Referring Provider: Philip Julio, [address], [place], [place], [address]. tel:[phone] OFFICE/OUTPA TIENT VISIT, [facility], [address], [place], [place], [address], [place] tel:[phone] [facility] anxiety1 (chief complaint) weight1 (chief complaint) Abnormal weight gainGeneralized Anxiety Disorder 0 Sumanth Palacios. [address], [address], [place], [place], [address] , [place]. tel:[phone] Referring Provider: Vaibhav Esqueda [address], [place], [place], [address]. tel:[phone] OFFICE/OUTPA TIENT VISIT, [facility], [address], [place], [place], [address], [place] tel:[phone] [facility] HLP (chief complaint) anxiety1 (chief complaint) Generalized Anxiety DisorderHyperlipide caitlyn 0 0 Sumanth Palacios. [address], [place], [place], [address] , [place]. tel:[phone] Referring Provider: Philip Julio [address], [place], [place], [address]. tel:[phone] OFFICE/OUTPA TIENT VISIT, EST [facility], [address], [place], [place], [address], [place] tel:[phone] [facility] anxiety1 (chief complaint) weight gain1 (chief complaint) Abnormal weight gainGeneralized Anxiety Disorder Apr-2 0 Sumanth Palacios. [address], [place], [place], [address] , [place]. tel:[phone] Referring Provider: Philip Julio [address], [place], [place], [address]. tel:[phone] OFFICE/OUTPA TIENT VISIT, [facility], [address], [place], [place], [address], [place] tel:[phone] [facility] anxiety1 (chief complaint) hand numbness1 (chief complaint) Paresthesia of skinGeneralized Anxiety Disorder Aug- 0 Sumanth Palacios. [address], [place], [place], [address] , [place]. tel:[phone] Referring Provider: Vaibhav Esqueda [address], [place], [place], [address]. tel:[phone] OFFICE/OUTPA TIENT VISIT, [facility], [address], [place], [place], [address], [place] tel:[phone] [facility] tingling1 (chief complaint) weight loss1 (chief complaint) anxiety1 (chief complaint) Other muscle spasmParesthesia of skinGeneralized Anxiety DisorderAbnormal weight loss Fe- 0- 0 Sumanth Palacios. [address], [place], [place], [address] , [place]. tel:[phone] Referring Provider: Vaibhav Esqueda [address], [place], [place], [address]. tel:[phone] PREV VISIT, EST, AGE 18-39 [facility], [address], [place], [place], [address], [place] tel:[phone] [facility] Physical (chief complaint) Encntr for general adult medical exam w/o abnormal findings 0 0 Sumanth Palacios. [address], [address], [place], [place], [address] , [place]. [phone] Referring Provider: Vaibhav Esqueda [address], [place], [place], [address]. tel:[phone] OFFICE/OUTPA TIENT VISIT, [facility], [address], [place], [place], [address], [place] tel:[phone] [facility] anxiety1 (chief complaint) weight1 (chief complaint) Abnormal weight gainGeneralized Anxiety Disorder 9 Sumanth Palacios. [address], [place], [place], [address] , [place]. [phone] Referring Provider: Vaibhav Esqueda [address], [place], [place], [address]. tel:[phone] OFFICE/OUTPA TIENT VISIT, [facility], [address], [place], [place], [address], [place] tel:[phone] [facility] weight loss1 (chief complaint) anxiety1 (chief complaint) Abnormal weight lossGeneralized Anxiety Disorder 9 Sumanth Lin [address], [address], [place], [place], [address] , [place]. [phone] Referring Provider: Vaibhav Esqueda [address], [place], [place], [address]. tel:[phone] OFFICE/OUTPA TIENT VISIT, [facility], [address], [place], [place], [address], [place] tel:[phone] [facility] weight loss1 (chief complaint) anxiety1 (chief complaint) Generalized Anxiety DisorderAbnormal weight loss 9 Sumanth Palacios. [address], [place], [place], [address] , [place]. [phone] Referring Provider: Vaibhav Esqueda [address], [place], [place], [address]. tel:[phone] OFFICE/OUTPA TIENT VISIT, [facility], [address], [place], [place], [address], [place] tel:[phone] [facility] fatty liver1 (chief complaint) HLP (chief complaint) MCV (chief complaint) weight loss1 (chief complaint) anxiety1 (chief complaint) HyperlipidemiaAbnor mal weight lossGeneralized Anxiety DisorderFatty liverOther specified disease of bloodHyperglycemia 0 9 Sumanth Palacios. [address], [place], [place], [address] , [place]. tel:[phone] Referring Provider: Vaibhav Esqueda [address], [place], [place], [address]. tel:[phone] OFFICE/OUTPA TIENT VISIT, [facility], [address], [place], [place], [address], [place] tel:[phone] [facility] anxiety1 (chief complaint) LFT (chief complaint) obesity1 (chief complaint) HLP (chief complaint) sleep apnea1 (chief complaint) Liver diseaseHyperlipidem iaSleep apneaGeneralized Anxiety DisorderAbnormal weight gain 9 Sumanth Palacios. [address], [place], [place], [address] , [place]. tel:[phone] Referring Provider: Vaibhav Esqueda [address], [place], [place], [address]. tel:[phone] OFFICE/OUTPA TIENT VISIT, [facility], [address], [place], [place], [address], [place] tel:[phone] [facility] HTN (chief complaint) anxiety1 (chief complaint) LFT (chief complaint) Abnormal weight lossLiver diseaseGeneralized Anxiety Disorder 9 Sumanth Palacios. [address], [place], [place], [address] , [place]. tel:[phone] Referring Provider: Vaibhav Esqueda [address], [place], [place], [address]. tel:[phone] OFFICE/OUTPA TIENT VISIT, [facility], [address], [place], [place], [address], [place] tel:[phone] [facility] weight1 (chief complaint) anxiety1 (chief complaint) lFt (chief complaint) sleep apnea1 (chief complaint) Sleep apneaLiver diseaseGeneralized Anxiety DisorderSecondary polycythemiaHyperli pidemiaAbnormal weight gain 9 Sumanth Palacios. [address], [place], [place], [address] , [place]. tel:[phone] Referring Provider: Vaibhav Esqueda [facility] A, [place], [place], [address]. tel:[phone] OFFICE/OUTPA TIENT VISIT, [facility], [address], [place], [place], [address], [place] tel:[phone] [facility] anxiety1 (chief complaint) weight1 (chief complaint) sleep apnea1 (chief complaint) liver1 (chief complaint) Abnormal weight gainLiver diseaseGeneralized Anxiety DisorderSleep apnea 9 Sumanth Palacios. [address], [place], [place], [address] , [place]. tel:[phone] Referring Provider: Vaibhav Esqueda [address], [place], [place], [address]. tel:[phone] OFFICE/OUTPA TIENT VISIT, [facility], [address], [place], [place], [address], [place] tel:[phone] [facility] HLP (chief complaint) LFT (chief complaint) polycythem ia1 (chief complaint) glucose1 (chief complaint) anxiety1 (chief complaint) HyperlipidemiaLiver diseaseHyperglycemi aSecondary polycythemiaGeneral ized Anxiety DisorderAbnormal weight gain 9 Sumanth Lin [address], [place], [place], [address] , [place]. tel:[phone] Referring Provider: Vaibhav Esqueda [address], [place], [place], [address]. tel:[phone] OFFICE/OUTPA TIENT VISIT, EST [facility], [address], [place], [place], [address], [place] tel:[phone] [facility] GI (chief complaint) Viral infection 9 Sumanth Palacios. [address], [place], [place], [address] , [place]. tel:[phone] Referring Provider: Philip Julio, Vaibhav [address], [place], [place], [address]. tel:[phone] OFFICE/OUTPA TIENT VISIT, [facility], [facility] [address], [place], [place], [address], [place] tel:[phone] [facility] weight gain1 (chief complaint) anxiety1 (chief complaint) cough1 (chief complaint) insomnia1 (chief complaint) Acute bronchitisInsomniaG eneralized Anxiety DisorderAbnormal weight gainEssential (primary) hypertension 9 Sumanth Palacios. [address], [place], [place], [address] , [place]. tel:[phone] Referring Provider: Vaibhav Esqueda [address], [place], [place], [address]. tel:[phone] PREV VISIT, EST, AGE 18-39 [facility], [address], [place], [place], [address], [place] tel:[phone] [facility] Physical (chief complaint) Encounter for general adult medical exam w abnormal findingsAbnormal weight gainGeneralized Anxiety DisorderOccult blood in fecesEssential (primary) hypertension 8 Sumanth Palacios. [address], [place], [place], [address] , [place]. tel:[phone] Referring Provider: Vaibhav Esqueda [address], [place], [place], [address]. tel:[phone] OFFICE/OUTPA TIENT VISIT, [facility], [address], [place], [place], [address], [place] tel:[phone] [facility] insomnia1 (chief complaint) anxiety1 (chief complaint) sob1 (chief complaint) Generalized Anxiety DisorderAsthmaInsom niaSleep disorder, unspecified 0 7 Sumanth Palacios. [address], [place], [place], [address] , [place]. tel:[phone] Referring Provider: Philip Julio, [address], [place], [place], [address]. tel:[phone] OFFICE/OUTPA TIENT VISIT, [facility], [address], [place], [place], [address], [place] tel:[phone] [facility] anxiety1 (chief complaint) insomnia1 (chief complaint) InsomniaGeneralized Anxiety Disorder 7 Sumanth Palacios. [address], [place], [address] , [place]. tel:[phone] Referring Provider: Philip Julio [address], [place], [place], [address]. tel:[phone] OFFICE/OUTPA TIENT VISIT, [facility], [address], [place], [place], [address], [place] tel:[phone] [facility] back pain1 (chief complaint) HLP (chief complaint) anxiety1 (chief complaint) insomnia1 (chief complaint) HyperlipidemiaBack painGeneralized Anxiety Disorder 7 Sumanth Palacios. [address], [place], [address] , [place]. tel:[phone] Referring Provider: Vaibhav Esqueda [address], [place], [place], [address]. tel:[phone] OFFICE/OUTPA TIENT VISIT, [facility], [address], [place], [address], [place] tel:[phone] [facility] anxiety1 (chief complaint) insomnia1 (chief complaint) marijauna1 (chief complaint) weight loss1 (chief complaint) InsomniaGeneralized Anxiety DisorderCannabis abuse, uncomplicatedAbnorm al weight loss 7 Sumanth Palacios. [address], [place], [place], [address] , [place]. tel:[phone] Referring Provider: Vaibhav Esqueda [address], [place], [place], [address]. tel:[phone] OFFICE/OUTPA TIENT VISIT, [facility], [address], [place], [place], [address], [place] tel:[phone] [facility] anxiety1 (chief complaint) insomnia1 (chief complaint) HLP (chief complaint) Generalized Anxiety DisorderHyperlipide miaInsomniaBody mass index (BMI) 32.0-32.9, adult Fe 7 Sumanth Lin [address], [place], [place], [address] , [place]. tel:[phone] Referring Provider: Vaibhav Esqueda [address], [place], [place], [address]. tel:[phone] OFFICE/OUTPA TIENT VISIT, [facility], [address], [place], [address], [place] tel:[phone] [facility] anxiety1 (chief complaint) insomnia1 (chief complaint) obesity1 (chief complaint) Generalized Anxiety DisorderBody mass index (BMI) 33.0-33.9, adultInsomnia 7 Sumanth Lin [address], [place], [place], [address] , [place]. tel:[phone] Referring Provider: Vaibhav Esqueda [address], [place], [address]. tel:[phone] OFFICE/OUTPA TIENT VISIT, [facility], [address], [place], [address], [place] tel:[phone] [facility] HLP (chief complaint) MCV (chief complaint) toothache1 (chief complaint) anxiety1 (chief complaint) HyperlipidemiaAtypi jaguar facial painOther specified disease of bloodInsomnia 0 6 Sumanth Palacios. [address], [place], [place], [address] , [place]. tel:[phone] Referring Provider: Vaibhav Esqueda [address], [place], [place], [address]. tel:[phone] PREV VISIT, EST, AGE 18-39 [facility], [address], [place], [place], [address], [place] tel:[phone] [facility] PHysical (chief complaint) Encounter for general adult medical exam w abnormal findingsGeneralized anxiety disorderInsomnia 6 Sumanth Palacios. [address], [place], [place], [address] , [place]. tel:[phone] Referring Provider: Vaibhav Esqueda [address] [facility] A, [place], [place], [address]. tel:[phone] OFFICE/OUTPA TIENT VISIT, EST [facility], [address], [place], [place], [address], [place] tel:[phone] [facility] anxiety1 (chief complaint) hematuria1 (chief complaint) HTN (chief complaint) insomnia1 (chief complaint) Essential (primary) hypertensionHematur ia, unspecifiedGenerali zed anxiety disorderInsomnia 6 Sumanth Lin [address], [place], [place], [address] , [place]. tel:[phone] Referring Provider: Vaibhav Esqueda [address], [place], [place], [address]. tel:[phone] OFFICE/OUTPA TIENT VISIT, EST [facility], [address] [place], [address], [place] tel:[phone] [facility] shoulder pain1 (chief complaint) hematuria (chief complaint) anxiety1 (chief complaint) HematuriaGeneralize d anxiety disorderPain in rt shoulder 6 Sumanth Lin [address], [place], [place], [address] , [place]. tel:[phone] Referring Provider: Philip Julio, [address], [place], [place], [address]. tel:[phone] OFFICE/OUTPA TIENT VISIT, [facility], [address], [place], [address], [place] tel:[phone] [facility] anxiety1 (chief complaint) insomnia1 (chief complaint) Generalized anxiety disorderOther insomnia 0 6 Sumanth Palacios. [address], [place], [place], [address] , [place]. tel:[phone] Referring Provider: Vaibhav Esqueda [address], [place], [place], [address]. tel:[phone] OFFICE/OUTPA TIENT VISIT, [facility], [address], [place], [address], [place] tel:[phone] [facility] Anxiety1 (chief complaint) insomnia1 (chief complaint) fatigue1 (chief complaint) Other insomniaOther fatigueGeneralized anxiety disorder 8 5 Sumanth Palacios. [address], [place], [place], [address] , [place]. tel:[phone] Referring Provider: Vaibhav Esqueda [address], [place], [place], [address]. tel:[phone] OFFICE/OUTPA TIENT VISIT, [facility], [address], [place], [address], [place] tel:[phone] [facility] chest pain1 (chief complaint) anxiety1 (chief complaint) Generalized anxiety disorderHematuria 7 5 Sumanth Palacios. [address], [place], [place], [address] , [place]. tel:[phone] Referring Provider: Vaibhav Esqueda [address], [place], [place], [address]. tel:[phone] OFFICE/OUTPA TIENT VISIT, [facility], [address], [place], [address], [place] tel:[phone] [facility] Anxiety (chief complaint) HLP (chief complaint) hematuria (chief complaint) chest pain (chief complaint) Dietary surveillance and counselingGeneraliz ed anxiety disorderHematuriaHy perlipidemiaChest pain 5 Sumanth Palacios. [address], [place], [place], [address] , [place]. tel:[phone] Referring Provider: Vaibhav Esqueda [address], [place], [place], [address]. tel:[phone] PREV VISIT, EST, AGE 18-39 [facility], [address], [place], [address], [place] tel:[phone] [facility] PHysical (chief complaint) Routine medical examDietary surveillance and counseling 5 Sumanth Palacios. [address], [place], [place], [address] , [place]. tel:[phone] Referring Provider: Vaibhav Esqueda [address], [place], [place], [address]. tel:[phone] OFFICE/OUTPA TIENT VISIT, EST [facility], [address], [place], [address], [place] tel:[phone] [facility] rectal bleeding (chief complaint) anxiety (chief complaint) HTN (chief complaint) HLP (chief complaint) Unspecified essential hypertensionOther and unspecified hyperlipidemiaGener alized anxiety disorderRectal bleedingDietary surveillance and counseling 5 Sumanth Palacios. [address], [address], [place], [place], [address] , [place]. tel:[phone] Referring Provider: Vaibhav Esqueda [address], [place], [place], [address]. tel:[phone] OFFICE/OUTPA TIENT VISIT, EST [facility], [address], [place], [place], [address], [place] tel:[phone] [facility] anxiety (chief complaint) alcohol (chief complaint) Generalized anxiety disorderAlcohol dependence in remission Flash- 3-201 5 Sumanth Palacios. [address], [address], [place], [place], [address] , [place]. tel:[phone] Referring Provider: Vaibhav Esqueda [address], [place], [place], [address]. tel:[phone] OFFICE/OUTPA TIENT VISIT, [facility], [address], [place], [place], [address], [place] tel:[phone] [facility] anxiety (chief complaint) alcohol (chief complaint) Generalized anxiety disorderDepression May-0 6- 5 Sumanth Palacios. [address], [address], [place], [place], [address] , [place]. tel:[phone] Referring Provider: Vaibhav Esqueda [address], [place], [place], [address]. tel:[phone] OFFICE/OUTPA TIENT VISIT, [facility], [address], [place], [place], [address], [place] tel:[phone] [facility] anxiety (chief complaint) HTN (chief complaint) Dietary surveillance and counselingDepressio nGeneralized anxiety disorder Apr-0 6 5 Sumanth Palacios. [address], [address], [place], [place], [address] , [place]. tel:[phone] Referring Provider: Vaibhav Esqueda [address], [place], [place], [address]. tel:[phone] OFFICE/OUTPA TIENT VISIT, [facility], [address], [place], [place], [address], [place] tel:[phone] [facility] anxiety (chief complaint) alcohol (chief complaint) Dietary surveillance and counselingSedative, hypnotic or anxiolytic dependence, unspecifiedOther and unspecified alcohol dependence, episodic drinking behavior Mar-0 9-201 5 Sumanth Palacios. [address], [address], [place], [place], [address] , [place]. tel:[phone] Referring Provider: Vaibhav Esqueda [address], [place], [place], [address]. tel:[phone] OFFICE/OUTPA TIENT VISIT, [facility], [address], [place], [place], [address], [place] tel:[phone] [facility] sick (chief complaint) cardiomyop athy (chief complaint) alcohol (chief complaint) anxiety (chief complaint) Dietary surveillance and counselingOther and unspecified diseases of upper respiratory tractCardiomyopathy , Other PrimaryOther and unspecified alcohol dependence, episodic drinking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
--- OUTSIDE RECORDS SUMMARY | 2024-10-07 08:40 | XMS_ITS | CONTINUITY OF CARE DOCUMENT ---
Author Name harshad patricia Address Unknown Organization [facility] Address [address] [place] [address] Phone [phone] Care Team Providers Care Equine Breeder Name Role Phone Lucy SANTOYO, Mciha Unavailable JANICE SANTOYO, JUSTIN Unavailable JANETTE PIERCE MD Unavailable [phone] INSURANCE PROVIDERS Payer name Policy type / Coverage type [place] [employer] party ID [employer] [employer] Medicaid [id number] HEALTHCARE AND FAMILY SERVICES Medicaid 1 [id number]
[2024-10-07] MEDS: SODIUM CHLORIDE 0.9% IV 1,000 ML 999 ML IV CONT ×3 (08:46→11:13)
[2024-10-07 08:47] LABS: Basophils Percent Auto 0.3 % (0.2-1.2); Eosinophils Percent Auto 0.1 % (0-4.4); Hematocrit 45.6 % (37.0-47.0); Hemoglobin 15.5 g/dL (12.0-15.0); Immature Granulocyte Absolute 0.05 K/mm3 (0.00-0.031); Immature Granulocyte Percent A 0.4 % (0-0.5); Lymphocytes Absolute Auto 2.42 K/mm3 (0.9-3.2); Lymphocytes Percent Auto 18.7 % (18.3-44.2); Mean Corpuscular Volume 97.2 fl (80-100); Mean Platelet Volume 9.6 fl (7.4-10.4); Monocytes Absolute Auto 0.6 K/mm3 (0.1-0.6); Monocytes Percent Auto 4.8 % (2.6-8.5); Neutrophils Absolute Auto 9.8 K/mm3 (1.3-6.7); Neutrophils Percent Auto 75.7 % (45.5-73.1); Platelet Count Result 222 k/mm3 (150-375); Red Blood Count 4.69 M/mm3 (4.2-5.4); Red Cell Distribution Width 13.1 % (11.5-14.5)
[2024-10-07 08:47] LABS: BEDSIDEPREGUCG Negative (Negative)
[2024-10-07] MEDS: PANTOPRAZOLE SODIUM IV 40 MG VIAL IV PUSH (08:47)
[2024-10-07] MEDS: ONDANSETRON INJ 4 MG/2 ML VIAL IV PUSH (08:50)
[2024-10-07] MEDS: LORazepam INJ (*CRX) 2 MG/ML VIAL IV PUSH ×2 (08:50→12:37)
[2024-10-07 08:51] LABS: Glucose Point of Care 70 mg/dl (65-105)
--- NOTE | 2024-10-07 08:53 | PC.NURSE ---
pt refused oral temperature due to making her feel more nauseated and feeling like she might throw up
[2024-10-07 08:59] LABS: Ethanol 117 mg/dL (<10)
[2024-10-07 09:00] LABS: INR 0.9; Prothrombin Time 12.9 Seconds (11.1-14.7)
[2024-10-07 09:03] LABS: Albumin Level 4.7 g/dL (3.5-5.1); Alkaline Phosphatase 81 U/L (38-126); Anion Gap 29 mmol/L (4-12); Aspartate Amino Transferase 64 U/L (14-36); Bilirubin,Total 0.9 mg/dL (0.2-1.3); Blood Urea Nitrogen 9 mg/dL (7-17); Calcium 8.6 mg/dL (8.4-10.2); Carbon Dioxide 9 mmol/L (22-30); Chloride 94 mmol/L (98-107); Estimated CRCL calculation 84 ml/min; Estimated Glomerular Filt Rate > 60; Glucose 68 mg/dL (65-110); Lipase 43 U/L (23-300); Phosphorus 5.4 mg/dL (2.5-4.5); Potassium 3.8 mmol/L (3.4-5.0); Sodium 132 mmol/L (137-145)
[2024-10-07] MEDS: THIAMINE 500 MG/NS 100 ML 500 MG/100 ML BAG 200 MG IVPB (09:05)
[2024-10-07 09:10] LABS: Amphetamine Screen Urine Negative (Negative); Barbiturate Screen Urine Negative (Negative); Benzodiazepines Screen Urine Negative (Negative); Cannabinoid Screen Urine Positive (Negative); Cocaine Screen Urine Negative (Negative); Methadone Screen Urine Negative (Negative); Opiate Screen Urine Negative (Negative); Phencyclidine Screen Urine Negative (Negative)
[2024-10-07 09:16] LABS: Alanine Aminotransferase 44 U/L (6-35)
[2024-10-07] MEDS: chlordiazePOXIDE (*CRX) 25 MG CAPSULE PO ×3 (09:35→20:56)
[2024-10-07] MEDS: DEXTROSE 5%/0.9% SOD CHL 1,000 ML 125 ML IV CONT ×2 (09:55→20:57)
[2024-10-07 10:04] LABS: Beta-Hydroxybutyrate/Acetoacetate 3.74 mmol/L (0.02-0.27)
[2024-10-07 11:36] LABS: Reflex Lactic Acid Yes or No Add Lactic
[2024-10-07 12:14] LABS: Lactic Acid 3.6 mmol/L (0.7-2.0)
[2024-10-07 12:45] LABS: Glucose Point of Care 72 mg/dl (65-105)
--- NOTE | 2024-10-07 13:00 | ADMGEN ---
This patient, Shruthi Evans, was admitted to Intensive Care Unit-6. Patient/family oriented to hospital policies and general routines including ID bracelet, bed and alarms, visiting hours, pain management, procedures, bathroom and other care routines, personal items, smoking policy, room service/diet, and visiting hours. Information on how to activate the Rapid Response Team has been discussed. Patient/Family are encouraged to report perceived risks to care and to ask questions if they do not understand what they are told or what they should do.
--- NOTE | 2024-10-07 13:14 | WPDCNINT ---
Assessment and Plan Assessment and plan (1) Alcoholic ketoacidosis: Code(s): E87.29 - Other acidosis Status: Acute Assessment and Plan: Patient presented with nausea, vomiting, abdominal discomfort, just not feeling well. Was found to have alcoholic ketoacidosis -received 3 L IV fluid bolus -will give additional IV fluids -continue maintenance IV fluids with D5 normal saline at 125 mL/hr -will add folic acid and thiamine, -CIWA protocol has been added with lorazepam for alcohol withdrawal -started on chlordiazepoxide -monitor for alcohol withdrawal -initial lactic acid was 6.0, repeat lactic was 3.8 will continue to trend (2) Nausea and vomiting: Code(s): R11.2 - Nausea with vomiting, unspecified Status: Acute Assessment and Plan: Nausea and vomiting most likely related to alcohol intoxication -p.r.n. antiemetics (3) Abdominal pain: Code(s): R10.9 - Unspecified abdominal pain Status: Acute Assessment and Plan: most likely related to alcohol intoxication (4) Depression: Code(s): F32.A - Depression, unspecified Status: Acute Assessment and Plan: Patient is not taking any medications at home (5) Perirectal abscess: Code(s): K61.1 - Rectal abscess Status: Acute Assessment and Plan: perianal abscess, for which she is being treated by the surgeon at [facility], and had an anal fistula fistulotomy on 06/10/2024. -On 08/26/2024: She followed up with Dr. Ramires and was referred to a colorectal specialist and started on antibiotics on the same day with Augmentin 875/125 mg p.o. b.i.d. for 14 days. -will start Zosyn as patient is not tolerating oral secondary to nausea and vomiting -for consult surgery (6) Hypertension: Code(s): I10 - Essential (primary) hypertension Status: Acute Assessment and Plan: Add p.r.n. hydralazine Plan DVT prophylaxis: Lovenox Stress ulcer prophylaxis: Protonix Nutrition: NPO except ice chips Code Status: Full code Critical Care Time Spent: 47 minutes Due to a high probability of clinically significant, life threatening deterioration, the patient required my highest level of preparedness to intervene emergently and I personally spent this critical care time directly and personally managing the patient. This critical care time included obtaining a history; examining the patient; pulse oximetry; ordering and review of studies; arranging urgent treatment with development of a management plan; evaluation of patient's response to treatment; frequent reassessment; and discussions with other providers. It was exclusive of separately billable procedures and treating other patients and teaching time. Please see Assessment and Plan section and the rest of the note for further information on patient assessment and treatment This dictation may have been done utilizing a voice recognition system. Attempts have been made to correct errors. However, there may be uncorrected grammatical, spelling, and recognitions errors present. Costume Seamstress Consult Note Consult date: 10/07/24 Reason for consult: Alcohol intoxication, nausea, vomiting, abdominal pain, HPI: Shruthi Evans is a 43 year old female patient with significant past medical history of depression, hypertension, alcohol abuse, perianal abscess presented the ED on 10/07/2024 with complaints of nausea, vomiting, abdominal discomfort. Patient stated that she has been binge drinking about a 5th of whiskey daily for almost a week. Last drink was yesterday. Patient presented with nausea, vomiting, abdominal discomfort, burning in her throat, just not feeling too well. In the ER patient was found to have a WBC count of 13.0, hemoglobin of 15.5, platelets 222. Sodium 132, potassium 3.8, chloride 94, CO2 9, BUN 9, creatinine 0.70, blood sugar 68. INR 0.9. Phosphorus 5.4, calcium 8.6, magnesium 2.0, total bilirubin 0.9, AST 64, ALT 44. Lipase 43, urine tox screen was positive for cannabinoids. Ethyl alcohol 117. Initial Lactic acid 6.0, repeat lactic acid 3.6 after 3 L IV fluid bolus. Beta hydroxybutyrate was 3.74. Urine hCG negative 10/07: CT abdomen and pelvis: Heterogeneous enhancement of the uterus, a nonspecific finding. Fatty infiltration of the enlarged liver. Otherwise, unremarkable CT examination of the abdomen and pelvis, as detailed above. Patient seen and examined upon arrival to the ICU. Denies any nausea or vomiting at this time, above history was obtained by the patient. She also has a history of hypertension, perianal abscess, for which she is being treated by the surgeon at [facility], and had an anal fistula fistulotomy on 06/10/2024. On 08/26/2024: She followed up with Dr.. Ramires and was referred to a colorectal specialist and started on antibiotics on the same day with Augmentin 875/125 mg p.o. b.i.d. for 14 days. Patient denies any tobacco use, she does smoke marijuana occasionally. States she binge drinks as mentioned above. She is planning to go to [facility] after she is discharged from the hospital Review of Systems Review of Systems: All systems reviewed & are unremarkable except as noted in HPI and below PMFSH Past Medical History Medical History Hypertension Preeclampsia cardiomyopathy Alcohol abuse Surgical History Surgical History History of incision and drainage I&D of perianal abscess on 12/30/23. KM History of section Family History Family History Father Diabetes mellitus Mother Chronic obstructive pulmonary disease Heart disease Grandparent Lung cancer Social History Social History Social History: Surrogate medical decision maker: Shannon Lopez, friend. Code status: Full code. Smoking status: Never smoker Alcohol intake: current Drinks per week: 28 Alcohol use details: Taking Vivitrol injections monthly to stop her drinking. Substance use: never Substance use type: marijuana Other substance usage details: Daily Do You Feel Safe in your Home?: Yes Lack of Transportation: YES Lack of Food: Never True Current Housing: I Have Housing Concerned About Future Housing: No Difficulty Paying Gas/Electric Bills: No Difficulty Paying for Meds: No Currently Unemployed: No Education: High School Diploma/GED Difficulty w/ Childcare or Family Care: No Living arrangements: with family Additional living arrangements comments: Lives in [place]. Has a 14-year-old son. Additional occupation/education comments: Works at [employer]. Spiritual care concerns: Yes Meds Home Medications and Allergies Home Medications ?Medication ?Instructions ?Recorded ?Confirmed ?Type amoxicillin 875 mg-potassium 1 tablet PO BID #28 tabs 08/26/24 10/07/24 Rx clavulanate 125 mg tablet Allergies Allergy/AdvReac Type Severity Reaction Status Date / Time No Known Allergies Allergy Verified 10/07/24 08:37 Vital Signs Vital Signs - 24 hr 10/07/24 08:29 10/07/24 08:29 10/07/24 08:31 Temperature 97.8 F Pulse Rate 136 H 136 H 133 H Respiratory Rate 25 H 19 17 Blood Pressure 161/121 H 164/118 H 161/121 H Pulse Oximetry 99 99 99 Oxygen Delivery Room Air 10/07/24 08:46 10/07/24 09:01 10/07/24 09:03 Temperature Pulse Rate 129 H 124 H 123 H Respiratory Rate 19 28 H Blood Pressure 146/118 H 137/91 H Pulse Oximetry 98 99 Oxygen Delivery 10/07/24 09:29 10/07/24 09:31 10/07/24 09:46 Temperature Pulse Rate 128 H 127 H 130 H Respiratory Rate 23 H 27 H 27 H Blood Pressure 144/100 H 146/103 H 144/94 H Pulse Oximetry 100 100 97 Oxygen Delivery 10/07/24 10:01 10/07/24 10:16 10/07/24 10:31 Temperature Pulse Rate 126 H 126 H 130 H Respiratory Rate 27 H 26 H 21 H Blood Pressure 129/99 H 154/102 H 163/74 H Pulse Oximetry 99 98 97 Oxygen Delivery 10/07/24 10:46 10/07/24 10:47 10/07/24 11:00 Temperature Pulse Rate 120 H 121 H 117 H Respiratory Rate 23 H 25 H 23 H Blood Pressure 163/97 H Pulse Oximetry 99 98 98 Oxygen Delivery 10/07/24 11:01 10/07/24 11:15 10/07/24 11:30 Temperature Pulse Rate 119 H 120 H 119 H Respiratory Rate 22 H 20 26 H Blood Pressure 155/111 H 160/116 H Pulse Oximetry 99 Oxygen Delivery 10/07/24 11:31 10/07/24 11:54 10/07/24 12:00 Temperature Pulse Rate 121 H 122 H 116 H Respiratory Rate 25 H 20 25 H Blood Pressure Pulse Oximetry 100 95 Oxygen Delivery 10/07/24 12:01 10/07/24 12:15 Temperature Pulse Rate 115 H 122 H Respiratory Rate 24 H 19 Blood Pressure 172/112 H Pulse Oximetry 97 Oxygen Delivery Exam Narrative: General: Pleasant female, depressed, in no acute distress HEENT:? Pupils equal and reactive, sclerae is clear, moist oral mucosa Neck:? Supple Respiratory:? Clear to auscultation bilaterally, no wheezing Cardiac:? S1-S2 is normal, sinus tachycardia Abdomen:? Soft, nontender, nondistended, normoactive bowel sounds. Extremities:? No edema, positive pedal pulses Neuro:? Patient is awake, alert, oriented, nonfocal Skin:? Marii anal abscess opening on the right side of the labia minora majora with no discharge, no induration, no erythema, no pain Psych:? Depressed affect, normal mentation Results Labs 10/07/24 08:39 10/07/24 08:39 Labs: Short CBC 10/07/24 Range/Units 08:39 WBC 13.0 H (4.5-10.0) K/mm3 Hgb 15.5 H (12.0-15.0) g/dL Hct 45.6 (37.0-47.0) % Plt Count 222 D (150-375) k/mm3 BMP 10/07/24 08:39 Sodium 132 L Potassium 3.8 Chloride 94 L Carbon Dioxide 9 L BUN 9 D Creatinine 0.70 Glucose 68 Calcium 8.6 Liver Function 10/07/24 Range/Units 08:39 Total Bilirubin 0.9 (0.2-1.3) mg/dL AST 64 H (14-36) U/L ALT 44 H (6-35) U/L Alkaline Phosphatase 81 (38-126) U/L Albumin 4.7 (3.5-5.1) g/dL Quality VTE Prophylaxis VTE prophylaxis: pharmacologic ordered Hospitalist MIPS Advance Care Plan I have confirmed that the patient's Advanced Care Plan is present, code status is documented, or surrogate decision maker is listed in patient medical record.: Yes Medication Reconciliation I have utilized all available resources to obtain, update and review the patients current medications (includes all prescriptions, OTC, herbals, cannabis, and nutritional supplements).: Yes
[2024-10-07 14:25] LABS: Glucose Point of Care 106 mg/dl (65-105)
[2024-10-07 14:51] LABS: Alanine Aminotransferase 35 U/L (6-35); Albumin Level 4.1 g/dL (3.5-5.1); Alkaline Phosphatase 61 U/L (38-126); Anion Gap 18 mmol/L (4-12); Aspartate Amino Transferase 53 U/L (14-36); Bilirubin,Total 1.1 mg/dL (0.2-1.3); Blood Urea Nitrogen 5 mg/dL (7-17); Calcium 7.3 mg/dL (8.4-10.2); Carbon Dioxide 12 mmol/L (22-30); Chloride 100 mmol/L (98-107); Estimated CRCL calculation 101 ml/min; Estimated Glomerular Filt Rate > 60; Glucose 101 mg/dL (65-110); Potassium 3.7 mmol/L (3.4-5.0); Sodium 130 mmol/L (137-145)
[2024-10-07] MEDS: PIPERACILLN/TAZ 3.375GM/NS50ML 3.375 GM/50 ML BAG IVPB ×2 (15:15→20:57)
[2024-10-07] MEDS: LACTATED RINGERS 500 ML IV CONT (15:52)
--- NOTE | 2024-10-07 16:30 | P.HP_ITS ---
H&P: HPI History of Present Illness Date/Time: 10/07/24 19:00 Chief Complaint: Nausea, vomiting, and abdominal discomfort. Narrative: This is a 43-year-old female with history of alcohol abuse, hypertension, anxi ety, and depression who presented to the emergency department with complaints of nausea, vomiting, and abdominal discomfort. She drinks whiskey in excess daily but does binge drink as well and she has been drinking about a 5th of whiskey a day for the last week or more. It is not unusual for her to get up in the middle of the night to take a shot to help with sleep or anxiety. Her last drink was a bout 01:00 and within about 6 hours or so she began to feel increasingly anxious and tremulous. Shortly thereafter she developed abdominal discomfort, burning in her throat, and nausea. She reports having multiple episodes of nonbloody and nonbilious emesis prior to coming to the ED. Of note, she received treatment for a perianal abscess last winter status post anal fistula fistulotomy per Dr. Justino munson. She saw him in follow-up last month and was referred to a colorectal specialist due to ongoing issues and she completed a course of Augmentin at that time. She still has discomfort in the area. She denies fever, cold and flu symptoms, chest pain, shortness of breath, hematemesis, diarrhea, melena, diarrhea, and dysuria. She also denies hallucinations and has no history of alcohol withdrawal seizures. In the ED: Labs were significant for a WBC count of 13.0, hemoglobin 15.5, platelet 222, sodium 132, potassium 3.8, BUN 9, creatinine 0.70, glucose 68, INR 0.9, AST 64, ALT 44, ethyl alcohol 117, lactic acid 6.0, beta hydroxybutyrate 3.74. Drug screen was positive for cannabinoids. CT of the abdomen and pelvis showed no acute findings. She received 3 L IV fluid bolus with improvement her lactic acid to 3.6. She also received IV lorazepam for anxiety and withdrawal symptoms and Zosyn for perianal abscess. Review of Systems Review of Systems: 12 systems were reviewed and are negativ e except for as per HPI. [facility] Past Medical History Medical History Hypertension Preeclampsia cardiomyopathy Alcohol abuse Surgical History Surgical History (Updated 10/07/24 @ 22:13 by Andria Villeda PA-C) History of anal fistulotomy History of incision and drainage I&D of perianal abscess on 12/30/23. History of section Family History Family History Father Diabetes mellitus Mother Chronic obstructive pulmonary disease Heart disease Grandparent Lung cancer Social History Social History (Updated 10/07/24 @ 22:14 by Andria Villeda PA-C) Social History: Surrogate medical decision maker: Shannon Lopez, friend. Code status: Full code. Smoking status: Never smoker Alcohol intake: current Drinks per week: 28 Alcohol use details: Up to a 5th of whiskey a day. Substance use: never Substance use type: marijuana Other substance usage details: Daily Last use: 10/06/24 Do You Feel Safe in your Home?: Yes Lack of Transportation: No Lack of Food: Never True Current Housing: I Have Housing Concerned About Future Housing: No Difficulty Paying Gas/Electric Bills: No Difficulty Paying for Meds: No Currently Unemployed: No Education: High School Diploma/GED Difficulty w/ Childcare or Family Care: No Living arrangements: with family Additional living arrangements comments: Lives in [place]. Has a teenage son. Additional occupation/education comments: Works at [employer]. Spiritual care concerns: No Meds Home Medications and Allergies Home Medications ?Medication ?Instructions ?Recorded ?Confirmed ?Type amoxicillin 875 mg-potassium 1 tablet PO BID #28 tabs 08/26/24 10/07/24 Rx clavulanate 125 mg tablet Allergies Allergy/AdvReac Type Severity Reaction Status Date / Time No Known Allergies Allergy Verified 10/07/24 08:37 Vital Signs Vital Signs - 24 hr 10/07/24 08:29 10/07/24 08:29 10/07/24 08:31 Temperature 97.8 F Pulse Rate 136 H 136 H 133 H Respiratory Rate 25 H 19 17 Blood Pressure 161/121 H 164/118 H 161/121 H Pulse Oximetry 99 99 99 Oxygen Delivery Room Air 10/07/24 08:46 10/07/24 09:01 10/07/24 09:03 Temperature Pulse Rate 129 H 124 H 123 H Respiratory Rate 19 28 H Blood Pressure 146/118 H 137/91 H Pulse Oximetry 98 99 Oxygen Delivery 10/07/24 09:29 10/07/24 09:31 10/07/24 09:46 Temperature Pulse Rate 128 H 127 H 130 H Respiratory Rate 23 H 27 H 27 H Blood Pressure 144/100 H 146/103 H 144/94 H Pulse Oximetry 100 100 97 Oxygen Delivery 10/07/24 10:01 10/07/24 10:16 10/07/24 10:31 Temperature Pulse Rate 126 H 126 H 130 H Respiratory Rate 27 H 26 H 21 H Blood Pressure 129/99 H 154/102 H 163/74 H Pulse Oximetry 99 98 97 Oxygen Delivery 10/07/24 10:46 10/07/24 10:47 10/07/24 11:00 Temperature Pulse Rate 120 H 121 H 117 H Respiratory Rate 23 H 25 H 23 H Blood Pressure 163/97 H Pulse Oximetry 99 98 98 Oxygen Delivery 10/07/24 11:01 10/07/24 11:15 10/07/24 11:30 Temperature Pulse Rate 119 H 120 H 119 H Respiratory Rate 22 H 20 26 H Blood Pressure 155/111 H 160/116 H Pulse Oximetry 99 Oxygen Delivery 10/07/24 11:31 10/07/24 11:54 10/07/24 12:00 Temperature Pulse Rate 121 H 122 H 116 H Respiratory Rate 25 H 20 25 H Blood Pressure Pulse Oximetry 100 95 Oxygen Delivery 10/07/24 12:01 10/07/24 12:15 10/07/24 13:15 Temperature 98 F Pulse Rate 115 H 122 H 115 H Respiratory Rate 24 H 19 26 H Blood Pressure 172/112 H 114/103 H Pulse Oximetry 97 98 Oxygen Delivery 10/07/24 14:00 10/07/24 14:00 Temperature Pulse Rate 118 H 118 H Respiratory Rate 23 H Blood Pressure 157/110 H Pulse Oximetry 100 Oxygen Delivery Exam Narrative: General: Moderately ill-appearing female lying on her left side in bed. Weight: 74.8 kg. BMI: 32.2. HEENT: PERRL, EOMI. Sclera anicteric. Conjunctiva moderately injected. Tacky mucous membranes. Neck: Supple. Respiratory: Lungs are clear to auscultation bilaterally. Cardiovascular: Tachycardic with normal S1-S2. Gastrointestinal: Abdomen is soft, nontender, and nondistended with positive bowel sounds. Rectal: Exam deferred. Skin: Warm and dry. Extremities: No cyanosis, clubbing, or edema. Radial and pedal pulses intact. Neurological: Alert and oriented. Cranial nerves 2-12 are grossly intact. Fine tremors of the hands. No tongue fasciculations. No gross focal deficits to casual conversation. Psychiatric: Pleasant and cooperative with normal mood. Slightly anxious. H&P: Results Labs Labs: Short CBC 10/07/24 Range/Units 08:39 WBC 13.0 H (4.5-10.0) K/mm3 Hgb 15.5 H (12.0-15.0) g/dL Hct 45.6 (37.0-47.0) % Plt Count 222 D (150-375) k/mm3 BMP 10/07/24 10/07/24 08:39 14:30 Sodium 132 L 130 L Potassium 3.8 3.7 Chloride 94 L 100 Carbon Dioxide 9 L 12 L BUN 9 D 5 L Creatinine 0.70 0.55 L Glucose 68 101 Calcium 8.6 7.3 L Liver Function 10/07/24 10/07/24 Range/Units 08:39 14:30 Total Bilirubin 0.9 1.1 (0.2-1.3) mg/dL AST 64 H 53 H (14-36) U/L ALT 44 H 35 (6-35) U/L Alkaline Phosphatase 81 61 (38-126) U/L Albumin 4.7 4.1 (3.5-5.1) g/dL Impressions Abdomen/Pelvis CT 10/07/24 09:24 IMPRESSION: Heterogeneous enhancement of the uterus, a nonspecific finding. Fatty infiltration of the enlarged liver. Otherwise, unremarkable CT examination of the abdomen and pelvis, as detailed above. Assessment and Plan Assessment and plan (1) Alcoholic ketoacidosis: Code(s): E87.29 - Other acidosis Status: Acute (2) Abdominal pain: Code(s): R10.9 - Unspecified abdominal pain Status: Acute (3) Perirectal abscess: Code(s): K61.1 - Rectal abscess Status: Acute (4) Alcohol withdrawal: Code(s): F10.239 - Alcohol dependence with withdrawal, unspecified Status: Acute (5) Hypertension: Code(s): I10 - Essential (primary) hypertension Status: Acute (6) Depression: Code(s): F32.A - Depression, unspecified Status: Acute Plan The patient presented to the emergency department with complaints of abdominal pain, nausea, and vomiting as detailed in HPI. CT scan of the abdomen and pelvis did not show any acute findings and her abdominal pain is likely related to alcohol. She has been started on pantoprazole in antiemetics are available as needed. She has alcoholic ketoacidosis and is on D5 normal saline. At the time of my evaluation she is tachycardic and anxious and is likely starting to go through alcohol withdrawals. Continue scheduled Librium and CIWA protocol. She has been started on thiamine and folic acid. Research Management Associate started Zosyn for perirectal abscess which I did not examine per patient request, and apparently surgery has been consulted for further recommendations. She does not appear toxic on exam is afebrile. Blood pressures are running high but should hopefully improve with better control of her withdrawal symptoms. P.r.n. hydralazine ordered. Her home medications will be reviewed and resumed as appropriate. Findings and treatment plan were discussed with the patient. Questions were solicited and answered to satisfaction. The patient's medical management will be taken over by the hospitalist team in a.m. Quality VTE Prophylaxis VTE prophylaxis: pharmacologic ordered The patient has been admitted under observation status. Hospitalist [facility] Advance Care Plan I have confirmed that the patient's Advanced Care Plan is present, code status is documented, or surrogate decision maker is listed in patient medical record.: Yes Medication Reconciliation I have utilized all available resources to obtain, update and review the patients current medications (includes all prescriptions, OTC, herbals, cannabis, and nutritional supplements).: Yes
[2024-10-07 16:44] LABS: MRSA (PCR) NOT DETECTED (NOT DETECTE)
[2024-10-07 16:54] LABS: Add Urine Microscopic? YES; Appearance Urine Clear (Clear); Bacteria Urine None Seen /hpf; Bilirubin Urine Negative (Negative); Blood Urine 3+ (Negative); Color Urine Yellow (Yellow); Glucose Urine UA Negative (Negative); Ketones Urine 3+ mg/dL (Negative); Leukocyte Esterase Ur 1+ LEU/UL (Negative); Nitrate Urine Negative (Negative); Non Pathogenic Casts 0-2; Protein Urine Negative (Negative); Squamous Epithelial Cell Urine Occasional /hpf (Few); Urobilinogen Urine 0.2 mg/dL (<2.0); pH Urine 5.5 (5.0-9.0)
[2024-10-07] MEDS: FOLIC ACID 1 MG TABLET PO (17:35)
[2024-10-07 17:52] LABS: Glucose Point of Care 145 mg/dl (65-105)
[2024-10-07] MEDS: LORazepam INJ (*CRX) 2 MG/ML VIAL 4 MG IV PUSH (20:56)
[2024-10-08] VITALS (11 sets, daily range): BP systolic 102–161; BP diastolic 74–118; PULSE 94–113; RESP 14–25; TEMP 36.6–36.9; O2SAT 97–100; BMI 31.5
[2024-10-08 00:31] LABS: Glucose Point of Care 219 mg/dl (65-105)
[2024-10-08] MEDS: chlordiazePOXIDE (*CRX) 25 MG CAPSULE PO ×3 (01:07→11:41)
[2024-10-08] MEDS: INSULIN ASPART (*BKC) 100 UNITS/ML SUB-Q (01:11)
[2024-10-08] MEDS: PIPERACILLN/TAZ 3.375GM/NS50ML 3.375 GM/50 ML BAG IVPB ×4 (04:15→20:24)
[2024-10-08 04:32] LABS: Basophils Percent Auto 0.2 % (0.2-1.2); Eosinophils Percent Auto 0.5 % (0-4.4); Hematocrit 37.3 % (37.0-47.0); Hemoglobin 13.1 g/dL (12.0-15.0); Immature Granulocyte Absolute 0.04 K/mm3 (0.00-0.031); Immature Granulocyte Percent A 0.6 % (0-0.5); Lymphocytes Absolute Auto 1.42 K/mm3 (0.9-3.2); Lymphocytes Percent Auto 22.2 % (18.3-44.2); Mean Corpuscular HGB Conc 35.1 g/dl (32-36); Mean Corpuscular Volume 96.9 fl (80-100); Mean Platelet Volume 9.8 fl (7.4-10.4); Monocytes Absolute Auto 0.4 K/mm3 (0.1-0.6); Monocytes Percent Auto 6.6 % (2.6-8.5); Neutrophils Absolute Auto 4.5 K/mm3 (1.3-6.7); Neutrophils Percent Auto 69.9 % (45.5-73.1); Platelet Count Result 136 k/mm3 (150-375); Red Blood Count 3.85 M/mm3 (4.2-5.4); Red Cell Distribution Width 13.3 % (11.5-14.5); White Blood Count 6.4 K/mm3 (4.5-10.0)
[2024-10-08 04:50] LABS: Alanine Aminotransferase 26 U/L (6-35); Albumin Level 3.2 g/dL (3.5-5.1); Alkaline Phosphatase 53 U/L (38-126); Anion Gap 7 mmol/L (4-12); Aspartate Amino Transferase 40 U/L (14-36); Bilirubin,Total 1.2 mg/dL (0.2-1.3); Blood Urea Nitrogen 5 mg/dL (7-17); Calcium 7.9 mg/dL (8.4-10.2); Carbon Dioxide 23 mmol/L (22-30); Chloride 102 mmol/L (98-107); Estimated CRCL calculation 103 ml/min; Estimated Glomerular Filt Rate > 60; Glucose 158 mg/dL (65-110); Magnesium 1.9 mg/dL (1.6-2.3); Phosphorus 1.2 mg/dL (2.5-4.5); Potassium 3.2 mmol/L (3.4-5.0); Sodium 132 mmol/L (137-145)
[2024-10-08 04:51] LABS: Lactic Acid Reflex 2.3 mmol/L (0.7-2.0)
[2024-10-08] MEDS: DEXTROSE 5%/0.9% SOD CHL 1,000 ML 125 ML IV CONT (05:58)
[2024-10-08 06:30] LABS: Reflex Lactic Acid Yes or No Add Lactic
[2024-10-08 07:03] LABS: Lactic Acid 1.5 mmol/L (0.7-2.0)
--- NOTE | 2024-10-08 08:13 | P.PNINT_ITS ---
Progress Note: A&P Assessment and Plan (1) Alcoholic ketoacidosis: Code(s): E87.29 - Other acidosis Status: Acute Assessment and Plan: Patient presented with nausea, vomiting, abdominal discomfort, just not feeling well. Was found to have alcoholic ketoacidosis -received 3 L IV fluid bolus -will give additional IV fluids -decrease maintenance IV fluids, if patient continues to tolerate oral diet, will discontinue IV fluids later today -continue folic acid and thiamine, -continue CIWA protocol with p.r.n. lorazepam - continue chlordiazepoxide -monitor for alcohol withdrawal -lactic acids have resolved (2) Nausea and vomiting: Code(s): R11.2 - Nausea with vomiting, unspecified Status: Acute Assessment and Plan: Nausea and vomiting most likely related to alcohol intoxication -p.r.n. antiemetics (3) Abdominal pain: Code(s): R10.9 - Unspecified abdominal pain Status: Acute Assessment and Plan: most likely related to alcohol intoxication (4) Depression: Code(s): F32.A - Depression, unspecified Status: Acute Assessment and Plan: Patient is not taking any medications at home -will have care coordination arrange for rehab and also provide resources. (5) Perirectal abscess: Code(s): K61.1 - Rectal abscess Status: Acute Assessment and Plan: perianal abscess, for which she is being treated by the surgeon at 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 -On 08/26/2024: She followed up with Dr. Ramires and was referred to a colorectal specialist and started on antibiotics on the same day with Augmentin 875/125 mg p.o. b.i.d. for 14 days. -will start Zosyn as patient is not tolerating oral secondary to nausea and vomiting -for consult surgery (6) Hypertension: Code(s): I10 - Essential (primary) hypertension Status: Acute Assessment and Plan: Continue p.r.n. hydralazine (7) Electrolyte imbalance: Code(s): E87.8 - Other disorders of electrolyte and fluid balance, not elsewhere classified Status: Acute Assessment and Plan: Will replace potassium and phosphorus Plan DVT prophylaxis: Lovenox Stress ulcer prophylaxis: Protonix Nutrition: NPO except ice chips Code Status: Full code Critical Care Time Spent: 31 minutes Patient transferred any the ICU if okay with hospitalist Due to a high probability of clinically significant, life threatening deterioration, the patient required my highest level of preparedness to intervene emergently and I personally spent this critical care time directly and personally managing the patient. This critical care time included obtaining a history; examining the patient; pulse oximetry; ordering and review of studies; arranging urgent treatment with development of a management plan; evaluation of patient's response to treatment; frequent reassessment; and discussions with other providers. It was exclusive of separately billable procedures and treating other patients and teaching time. Please see Assessment and Plan section and the rest of the note for further information on patient assessment and treatment This dictation may have been done utilizing a voice recognition system. Attempts have been made to correct errors. However, there may be uncorrected grammatical, spelling, and recognitions errors present. Subjective Date/time seen: 10/08/24 08:13 Interval history: Reason for consult: Alcohol intoxication, nausea, vomiting, abdominal pain, 10/08/2024: Is the ICU this morning, is awake, alert, denies any shortness of breath, chest pain, abdominal pain, nausea, vomiting. Was able to tolerate p.o. diet last night. Hemodynamically stable, adequate urine output. Acidosis has resolved. Patient is not have any tremors, hallucinations, agitation Review of Systems Review of Systems: All systems reviewed & are unremarkable except as noted in HPI and below Exam Narrative: General: Pleasant female, depressed, in no acute distress HEENT:? Pupils equal and reactive, sclerae is clear, moist oral mucosa Neck:? Supple Respiratory:? Clear to auscultation bilaterally, no wheezing Cardiac:? S1-S2 is normal, sinus tachycardia Abdomen:? Soft, nontender, nondistended, normoactive bowel sounds. Extremities:? No edema, positive pedal pulses Neuro:? Patient is awake, alert, oriented, nonfocal Skin:? No rash or other skin lesions noted Psych:? Depressed affect, normal mentation Objective Data Vital Signs Vital Signs: Vital Signs - 24 hr 10/07/24 08:29 10/07/24 08:29 10/07/24 08:31 Temperature 97.8 F Pulse Rate 136 H 136 H 133 H Respiratory Rate 25 H 19 17 Blood Pressure 161/121 H 164/118 H 161/121 H Pulse Oximetry 99 99 99 Oxygen Delivery Room Air Fraction of Inspired Oxygen 10/07/24 08:46 10/07/24 09:01 10/07/24 09:03 Temperature Pulse Rate 129 H 124 H 123 H Respiratory Rate 19 28 H Blood Pressure 146/118 H 137/91 H Pulse Oximetry 98 99 Oxygen Delivery Fraction of Inspired Oxygen 10/07/24 09:29 10/07/24 09:31 10/07/24 09:46 Temperature Pulse Rate 128 H 127 H 130 H Respiratory Rate 23 H 27 H 27 H Blood Pressure 144/100 H 146/103 H 144/94 H Pulse Oximetry 100 100 97 Oxygen Delivery Fraction of Inspired Oxygen 10/07/24 10:01 10/07/24 10:16 10/07/24 10:31 Temperature Pulse Rate 126 H 126 H 130 H Respiratory Rate 27 H 26 H 21 H Blood Pressure 129/99 H 154/102 H 163/74 H Pulse Oximetry 99 98 97 Oxygen Delivery Fraction of Inspired Oxygen 10/07/24 10:46 10/07/24 10:47 10/07/24 11:00 Temperature Pulse Rate 120 H 121 H 117 H Respiratory Rate 23 H 25 H 23 H Blood Pressure 163/97 H Pulse Oximetry 99 98 98 Oxygen Delivery Fraction of Inspired Oxygen 10/07/24 11:01 10/07/24 11:15 10/07/24 11:30 Temperature Pulse Rate 119 H 120 H 119 H Respiratory Rate 22 H 20 26 H Blood Pressure 155/111 H 160/116 H Pulse Oximetry 99 Oxygen Delivery Fraction of Inspired Oxygen 10/07/24 11:31 10/07/24 11:54 10/07/24 12:00 Temperature Pulse Rate 121 H 122 H 116 H Respiratory Rate 25 H 20 25 H Blood Pressure Pulse Oximetry 100 95 Oxygen Delivery Fraction of Inspired Oxygen 10/07/24 12:01 10/07/24 12:15 10/07/24 13:15 Temperature 98 F Pulse Rate 115 H 122 H 115 H Respiratory Rate 24 H 19 26 H Blood Pressure 172/112 H 114/103 H Pulse Oximetry 97 98 Oxygen Delivery Fraction of Inspired Oxygen 10/07/24 14:00 10/07/24 14:00 10/07/24 16:00 Temperature 98 F Pulse Rate 118 H 118 H 117 H Respiratory Rate 23 H 26 H Blood Pressure 157/110 H 168/112 H Pulse Oximetry 100 99 Oxygen Delivery Fraction of Inspired Oxygen 10/07/24 16:00 10/07/24 17:20 10/07/24 18:00 Temperature Pulse Rate 113 H 116 H 115 H Respiratory Rate 25 H Blood Pressure 153/103 H 152/100 H Pulse Oximetry 98 Oxygen Delivery Fraction of Inspired Oxygen 10/07/24 18:00 10/07/24 20:00 10/07/24 20:00 Temperature 98.2 F Pulse Rate 112 H 112 H 110 H Respiratory Rate 25 H 23 H Blood Pressure 165/103 H Pulse Oximetry 97 97 Oxygen Delivery Room Air Fraction of Inspired Oxygen 21 10/07/24 20:00 10/07/24 20:21 10/07/24 22:00 Temperature Pulse Rate 110 H 103 H Respiratory Rate 21 H Blood Pressure 153/102 H Pulse Oximetry 97 98 Oxygen Delivery Room Air Fraction of Inspired Oxygen 21 10/07/24 22:00 10/08/24 00:00 10/08/24 00:00 Temperature 98 F Pulse Rate 103 H 112 H 105 H Respiratory Rate 25 H 21 H Blood Pressure 158/111 H Pulse Oximetry 97 99 Oxygen Delivery Room Air Fraction of Inspired Oxygen 21 10/08/24 00:00 10/08/24 02:00 10/08/24 02:00 Temperature Pulse Rate 98 100 98 Respiratory Rate 21 H Blood Pressure 112/74 Pulse Oximetry 98 Oxygen Delivery Fraction of Inspired Oxygen 10/08/24 04:00 10/08/24 04:00 10/08/24 04:00 Temperature 98.1 F Pulse Rate 99 112 H 94 Respiratory Rate 20 25 H Blood Pressure 134/88 Pulse Oximetry 97 97 Oxygen Delivery Room Air Fraction of Inspired Oxygen 21 10/08/24 06:00 10/08/24 06:00 10/08/24 08:00 Temperature 98.4 F Pulse Rate 99 99 101 H Respiratory Rate 21 H 14 Blood Pressure 102/76 120/75 Pulse Oximetry 98 99 Oxygen Delivery Fraction of Inspired Oxygen Intake/Output Intake/Output: Intake & Output 10/05/24 10/06/24 10/07/24 10/08/24 23:59 23:59 23:59 23:59 Intake Total 4300 1275 Output Total 1600 1550 Balance 2700 -275 Meds/Results Medications: Active Medications Generic Name Dose Route Start Last Admin Trade Name Freq PRN Reason Stop Dose Admin Acetaminophen 650 mg 10/07/24 22:20 Acetaminophen 325 Mg Tablet PO Q6H PRN Mild Pain (1-3) or Fever Chlordiazepoxide HCl 25 mg 10/07/24 08:32 10/07/24 20:56 Chlordiazepoxide (*Crx) 25 Mg Capsule PO 25 mg Q6H PRN Administration Withdrawal Chlordiazepoxide HCl 25 mg 10/07/24 18:00 10/08/24 06:51 Chlordiazepoxide (*Crx) 25 Mg Capsule PO 25 mg Q6HR ROMEL Administration Dextrose 12.5 gm 10/07/24 13:51 Dextrose 50% 25 Gm/50 Ml Syringe IV PUSH PRN PRN Hypoglycemia Protocol Enoxaparin Sodium 40 mg 10/08/24 09:00 Enoxaparin 40 Mg/0.4 Ml Syringe SUB-Q DAILY ROMEL Folic Acid 1 mg 10/08/24 09:00 Folic Acid 1 Mg Tablet PO DAILY ROMEL Glucagon 1 mg 10/07/24 13:51 Glucagon For Inj 1 Mg Vial IM PRN PRN Hypoglycemia Protocol Glucose 15 gm 10/07/24 13:51 Glucose Oral Gel 15 Gm Of Glucse In 37.5 Gm Tube PO PRN PRN Hypoglycemia Protocol Hydralazine HCl 10 mg 10/07/24 14:05 Hydralazine Hcl 20 Mg/Ml Vial IV PUSH Q4H PRN Blood Pressure - High Dextrose/Sodium Chloride 1,000 mls @ 75 mls/hr 10/07/24 08:35 10/08/24 08:10 Dextrose 5% Sodium Chloride 0.9% IV CONT 75 mls/hr .[id number] ROMEL Infusion Dextrose 1,000 mls @ 100 mls/hr 10/07/24 13:51 Dextrose 5% 1,000 Ml IVPB PRN PRN Hypoglycemia Protocol Piperacillin/Tazobactam/Dextrose 3.375 gm in 50 mls @ 100 mls/hr 10/07/24 15:00 10/08/24 04:15 Zosyn 3.375 Gm/Ns 50 Ml IVPB 100 mls/hr Q6H ROMEL Administration Potassium Phosphate 40 mmol/ 263.3333 mls @ 43.889 mls/hr 10/08/24 07:45 Sodium Chloride IVPB 10/08/24 13:44 ONCE ONE Insulin Aspart 2 - 5 units 10/07/24 18:00 10/08/24 05:47 Insulin Aspart (*Bkc) 100 Units/Ml SUB-Q Not Given Q6HR [facility] Protocol Lorazepam 4 mg 10/07/24 20:20 10/07/24 20:56 Lorazepam Inj (*Crx) 2 Mg/Ml Vial IV PUSH 4 mg Q2H PRN Administration CIWA > 15 Lorazepam 2 mg 10/07/24 20:20 Lorazepam Inj (*Crx) 2 Mg/Ml Vial IV PUSH Q2H PRN CIWA 8-15 Ondansetron HCl 4 mg 10/07/24 13:18 Ondansetron Inj 4 Mg/2 Ml Vial IV PUSH Q6H PRN Nausea And Vomiting Pantoprazole Sodium 40 mg 10/08/24 09:00 Pantoprazole Sodium Iv 40 Mg Vial IV PUSH [facility] Thiamine HCl 100 mg 10/08/24 09:00 Thiamine Hcl 100 Mg Tablet PO [facility] Radiology Results: ITS Impressions Abdomen/Pelvis CT 10/07/24 09:24 IMPRESSION: Heterogeneous enhancement of the uterus, a nonspecific finding. Fatty infiltration of the enlarged liver. Otherwise, unremarkable CT examination of the abdomen and pelvis, as detailed above. Labs Labs: Laboratory Results - last 24 hr 10/07/24 10/07/24 10/07/24 08:39 08:43 08:45 WBC 13.0 H RBC 4.69 Hgb 15.5 H Hct 45.6 MCV 97.2 MCH 33.0 MCHC 34.0 RDW 13.1 Plt Count 222 D MPV 9.6 Immature Gran % (Auto) 0.4 Neut % (Auto) 75.7 H Lymph % (Auto) 18.7 [place] % (Auto) 4.8 Eos % (Auto) 0.1 Baso % (Auto) 0.3 Lymph # (Auto) 2.42 [place] # (Auto) 0.6 Eos # (Auto) 0.0 Baso # (Auto) 0.0 Abs Immat Gran (auto) 0.05 H Absolute Neuts (auto) 9.8 H Absolute Nucleated RBC 0.000 Nucleated RBC % 0.0 PT 12.9 INR 0.9 Sodium 132 L Potassium 3.8 Chloride 94 L Carbon Dioxide 9 L Anion Gap 29 H BUN 9 D Creatinine 0.70 Estim Creat Clear Calc 84 Estimated GFR > 60 Glucose 68 POC Capillary Glucose Lactic Acid Calcium 8.6 Phosphorus 5.4 H Magnesium 2.0 Total Bilirubin 0.9 AST 64 H ALT 44 H Alkaline Phosphatase 81 Total Protein 8.0 Albumin 4.7 Lipase 43 Beta-Hydroxybutyrate/Acetoacetate TSH Urine Color Urine Appearance Urine pH Ur Specific [place] Urine Protein Urine Glucose (UA) Urine Ketones Ur Blood (Man) Urine Nitrate Urine Bilirubin Urine Urobilinogen Leukocyte Esterase Rfl Urine RBC Urine WBC Ur Squamous Epith Cells Urine Bacteria Urine Casts POC Urine HCG, Qual Negative Nasal MRSA (PCR) Urine Opiates Screen Negative Urine Methadone Screen Negative Ur Barbiturates Screen Negative Ur Phencyclidine Scrn Negative Ur Amphetamine Screen Negative U Benzodiazepines Scrn Negative Urine Cocaine Screen Negative U Cannabinoids Screen Positive A Ethyl Alcohol 117 10/07/24 10/07/24 10/07/24 08:46 09:29 11:56 WBC RBC Hgb Hct MCV MCH MCHC RDW Plt Count MPV Immature Gran % (Auto) Neut % (Auto) Lymph % (Auto) [place] % (Auto) Eos % (Auto) Baso % (Auto) Lymph # (Auto) [place] # (Auto) Eos # (Auto) Baso # (Auto) Abs Immat Gran (auto) Absolute Neuts (auto) Absolute Nucleated RBC Nucleated RBC % PT INR Sodium Potassium Chloride Carbon Dioxide Anion Gap BUN Creatinine Estim Creat Clear Calc Estimated GFR Glucose POC Capillary Glucose 70 Lactic Acid 6.0 H* 3.6 H Calcium Phosphorus Magnesium Total Bilirubin AST ALT Alkaline Phosphatase Total Protein Albumin Lipase Beta-Hydroxybutyrate/Acetoacetate 3.74 H TSH Urine Color Urine Appearance Urine pH Ur Specific [place] Urine Protein Urine Glucose (UA) Urine Ketones Ur Blood (Man) Urine Nitrate Urine Bilirubin Urine Urobilinogen Leukocyte Esterase Rfl Urine RBC Urine WBC Ur Squamous Epith Cells Urine Bacteria Urine Casts POC Urine HCG, Qual Nasal MRSA (PCR) Urine Opiates Screen Urine Methadone Screen Ur Barbiturates Screen Ur Phencyclidine Scrn Ur Amphetamine Screen U Benzodiazepines Scrn Urine Cocaine Screen U Cannabinoids Screen Ethyl Alcohol 10/07/24 10/07/24 10/07/24 12:43 14:21 14:30 WBC RBC Hgb Hct MCV MCH MCHC RDW Plt Count MPV Immature Gran % (Auto) Neut % (Auto) Lymph % (Auto) [place] % (Auto) Eos % (Auto) Baso % (Auto) Lymph # (Auto) [place] # (Auto) Eos # (Auto) Baso # (Auto) Abs Immat Gran (auto) Absolute Neuts (auto) Absolute Nucleated RBC Nucleated RBC % PT INR Sodium 130 L Potassium 3.7 Chloride 100 Carbon Dioxide 12 L Anion Gap 18 H BUN 5 L Creatinine 0.55 L Estim Creat Clear Calc 101 Estimated GFR > 60 Glucose 101 POC Capillary Glucose 72 106 H Lactic Acid Calcium 7.3 L Phosphorus Magnesium Total Bilirubin 1.1 AST 53 H ALT 35 Alkaline Phosphatase 61 Total Protein 7.0 Albumin 4.1 Lipase Beta-Hydroxybutyrate/Acetoacetate TSH Urine Color Urine Appearance Urine pH Ur Specific [place] Urine Protein Urine Glucose (UA) Urine Ketones Ur Blood (Man) Urine Nitrate Urine Bilirubin Urine Urobilinogen Leukocyte Esterase Rfl Urine RBC Urine WBC Ur Squamous Epith Cells Urine Bacteria Urine Casts POC Urine HCG, Qual Nasal MRSA (PCR) Urine Opiates Screen Urine Methadone Screen Ur Barbiturates Screen Ur Phencyclidine Scrn Ur Amphetamine Screen U Benzodiazepines Scrn Urine Cocaine Screen U Cannabinoids Screen Ethyl Alcohol 10/07/24 10/07/24 10/07/24 15:24 16:36 17:34 WBC RBC Hgb Hct MCV MCH MCHC RDW Plt Count MPV Immature Gran % (Auto) Neut % (Auto) Lymph % (Auto) [place] % (Auto) Eos % (Auto) Baso % (Auto) Lymph # (Auto) [place] # (Auto) Eos # (Auto) Baso # (Auto) Abs Immat Gran (auto) Absolute Neuts (auto) Absolute Nucleated RBC Nucleated RBC % PT INR Sodium Potassium Chloride Carbon Dioxide Anion Gap BUN Creatinine Estim Creat Clear Calc Estimated GFR Glucose POC Capillary Glucose 145 H Lactic Acid Calcium Phosphorus Magnesium Total Bilirubin AST ALT Alkaline Phosphatase Total Protein Albumin Lipase Beta-Hydroxybutyrate/Acetoacetate TSH Urine Color Yellow Urine Appearance Clear Urine pH 5.5 Ur Specific [place] 1.020 Urine Protein Negative Urine Glucose (UA) Negative Urine Ketones 3+ H Ur Blood (Man) 3+ H Urine Nitrate Negative Urine Bilirubin Negative Urine Urobilinogen 0.2 Leukocyte Esterase Rfl 1+ H Urine RBC 6-10 H Urine WBC 6-10 H Ur Squamous Epith Cells Occasional Urine Bacteria None seen Urine Casts 0-2 POC Urine HCG, Qual Nasal MRSA (PCR) Not detected Urine Opiates Screen Urine Methadone Screen Ur Barbiturates Screen Ur Phencyclidine Scrn Ur Amphetamine Screen U Benzodiazepines Scrn Urine Cocaine Screen U Cannabinoids Screen Ethyl Alcohol 10/08/24 10/08/24 10/08/24 00:27 04:19 04:20 WBC 6.4 RBC 3.85 L Hgb 13.1 Hct 37.3 MCV 96.9 MCH 34.0 MCHC 35.1 RDW 13.3 Plt Count 136 L MPV 9.8 Immature Gran % (Auto) 0.6 H Neut % (Auto) 69.9 Lymph % (Auto) 22.2 [place] % (Auto) 6.6 Eos % (Auto) 0.5 Baso % (Auto) 0.2 Lymph # (Auto) 1.42 [place] # (Auto) 0.4 Eos # (Auto) 0.0 Baso # (Auto) 0.0 Abs Immat Gran (auto) 0.04 H Absolute Neuts (auto) 4.5 Absolute Nucleated RBC 0.000 Nucleated RBC % 0.0 PT INR Sodium 132 L Potassium 3.2 L Chloride 102 Carbon Dioxide 23 Anion Gap 7 BUN 5 L Creatinine 0.54 L Estim Creat Clear Calc 103 Estimated GFR > 60 Glucose 158 H POC Capillary Glucose 219 H Lactic Acid 2.3 H Calcium 7.9 L Phosphorus 1.2 L Magnesium 1.9 Total Bilirubin 1.2 AST 40 H ALT 26 Alkaline Phosphatase 53 Total Protein 6.0 L Albumin 3.2 L Lipase Beta-Hydroxybutyrate/Acetoacetate TSH 3.310 Urine Color Urine Appearance Urine pH Ur Specific [place] Urine Protein Urine Glucose (UA) Urine Ketones Ur Blood (Man) Urine Nitrate Urine Bilirubin Urine Urobilinogen Leukocyte Esterase Rfl Urine RBC Urine WBC Ur Squamous Epith Cells Urine Bacteria Urine Casts POC Urine HCG, Qual Nasal MRSA (PCR) Urine Opiates Screen Urine Methadone Screen Ur Barbiturates Screen Ur Phencyclidine Scrn Ur Amphetamine Screen U Benzodiazepines Scrn Urine Cocaine Screen U Cannabinoids Screen Ethyl Alcohol 10/08/24 06:47 WBC RBC Hgb Hct MCV MCH MCHC RDW Plt Count MPV Immature Gran % (Auto) Neut % (Auto) Lymph % (Auto) [place] % (Auto) Eos % (Auto) Baso % (Auto) Lymph # (Auto) [place] # (Auto) Eos # (Auto) Baso # (Auto) Abs Immat Gran (auto) Absolute Neuts (auto) Absolute Nucleated RBC Nucleated RBC % PT INR Sodium Potassium Chloride Carbon Dioxide Anion Gap BUN Creatinine Estim Creat Clear Calc Estimated GFR Glucose POC Capillary Glucose Lactic Acid 1.5 Calcium Phosphorus Magnesium Total Bilirubin AST ALT Alkaline Phosphatase Total Protein Albumin Lipase Beta-Hydroxybutyrate/Acetoacetate TSH Urine Color Urine Appearance Urine pH Ur Specific [place] Urine Protein Urine Glucose (UA) Urine Ketones Ur Blood (Man) Urine Nitrate Urine Bilirubin Urine Urobilinogen Leukocyte Esterase Rfl Urine RBC Urine WBC Ur Squamous Epith Cells Urine Bacteria Urine Casts POC Urine HCG, Qual Nasal MRSA (PCR) Urine Opiates Screen Urine Methadone Screen Ur Barbiturates Screen Ur Phencyclidine Scrn Ur Amphetamine Screen U Benzodiazepines Scrn Urine Cocaine Screen U Cannabinoids Screen Ethyl Alcohol Quality VTE Prophylaxis VTE prophylaxis: pharmacologic ordered
[2024-10-08] MEDS: FOLIC ACID 1 MG TABLET PO (08:15)
[2024-10-08] MEDS: PANTOPRAZOLE SODIUM IV 40 MG VIAL IV PUSH (08:15)
[2024-10-08] MEDS: THIAMINE HCL 100 MG TABLET PO (08:15)
[2024-10-08] MEDS: ENOXAPARIN 40 MG/0.4 ML SYRINGE SUB-Q (08:15)
[2024-10-08] MEDS: POTASSIUM PHOS,M-BASIC-D-BASIC 40 MMOL in SODIUM CHLORIDE 0.9% IV 250 ML 43.89 MMOL IVPB (08:16)
--- NOTE | 2024-10-08 11:17 | P.CONGS_ITS ---
Assessment and Plan Assessment and plan (1) [id number]: Code(s): K60.30 - Anal fistula, unspecified Status: Acute Assessment and Plan: This is the reason for our consultation. This is a chronic issue for the patient over the past 8-9 months. There are no acute changes in her symptoms recently and she is waiting for her appointment with a colorectal surgeon in 3 weeks. On exam, there is a small chronic-appearing opening that is consistent with the appearance of a fistula in the same location of her previous fistulotomy. There is no erythema or induration. She has not had any recent increased drainage and is sounds as though it is spontaneously draining almost daily and sometimes she will facilitate drainage with applying pressure and expressing this area. Reviewing the CT scan and comparing this to her CT in late July, this area appears unchanged. Will discuss with Dr. Davis, but at this time there does not appear to be any acute changes or findings of an enlarging perirectal abscess, and she will ultimately need to follow-up with Colorectal surgery as scheduled as an outpatient. Continue gauze dressing changes for any drainage, which she is already doing. Further plans will be noted once discussing with Dr. Davis. (2) Alcoholic ketoacidosis: Code(s): E87.29 - Other acidosis Status: Acute (3) Alcohol withdrawal: Code(s): F10.239 - Alcohol dependence with withdrawal, unspecified Status: Acute (4) Alcohol abuse: Code(s): F10.10 - Alcohol abuse, uncomplicated Status: Acute (5) Hypertension: Code(s): I10 - Essential (primary) hypertension Status: Acute History of Present Illness Consult details Consult date: 10/08/24 Reason for consult: other ( perirectal abscess and fistula) Requesting physician: Brooklyn Crump MD Narrative: This is a 43-year-old woman with PMH of alcohol abuse, HTN, anxiety, and depression, who is known to the surgical service for history of perirectal abscess and fistula. She was initially seen in December of 2023 for a perianal abscess that was incised and drained. She was seen as an outpatient with recurrent perirectal abscess requiring at least another I&D as an outpatient, and would fall out of follow-up. This continued to recur and she eventually underwent rectal exam under anesthesia with findings of an anal fistula with subsequent fistulotomy in May of 2024. She again did not follow-up and continue to have perirectal pain and drainage that led to another office visit in August of 2024, when she was referred to a colorectal surgeon. She was also started on Augmentin and has completed 2 rounds of antibiotics since that outpatient office visit. She now has a scheduled appointment on October 31 with a colorectal surgeon and continues to deal with her symptoms daily. She reportedly has buildup of drainage that she has to pop every morning. She notices some gas and stool that comes from this opening in the left anterior perianal area. This is bothersome to her daily life and she has not been able to go to work at times due to the persistent drainage. She denies any worsening or improving symptoms over the past month. No fevers or changes in her bowels. She drinks whiskey in excess daily with drinking about a fifth of whiskey a day for the last week. 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 She then had a few episodes of vomiting and decided come into the ED for evaluation. She has been admitted for alcoholic ketoacidosis and acute alcohol withdrawal. She had a CT scan of the abdomen and pelvis that showed no acute findings within the abdomen to explain her abdominal pain. Ther is not even any mention of a perirectal abscess or fistula on the CT report. We have been consulted for her perirectal abscess/fistula. She is now seen in the ICU. Her lactic acidosis has resolved and lactic acid is down to normal. She has been treated with IV fluids. WBC count was 13,000 on admission and is normal today. She reports that the perirectal pain is the same as it has been and improves when it drains. She has only had scant yellow drainage this morning with a gauze pad in place over the opening. She denies any abdominal pain, nausea, or vomiting this morning. Review of Systems 2 Review of Systems: All systems reviewed & are unremarkable except as noted in HPI and below PMFSH Past Medical History Medical History Hypertension Preeclampsia cardiomyopathy Alcohol abuse Surgical History Surgical History History of anal fistulotomy History of incision and drainage I&D of perianal abscess on 12/30/23. History of section Family History Family History Father Diabetes mellitus Mother Chronic obstructive pulmonary disease Heart disease Grandparent Lung cancer Social History Social History Social History: Surrogate medical decision maker: Shannon Aguillonon, friend. Code status: Full code. Smoking status: Never smoker Alcohol intake: current Drinks per week: 28 Alcohol use details: Up to a 5th of whiskey a day. Substance use: never Substance use type: marijuana Other substance usage details: Daily Last use: 10/06/24 Do You Feel Safe in your Home?: Yes Lack of Transportation: No Lack of Food: Never True Current Housing: I Have Housing Concerned About Future Housing: No Difficulty Paying Gas/Electric Bills: No Difficulty Paying for Meds: No Currently Unemployed: No Education: High School Diploma/GED Difficulty w/ Childcare or Family Care: No Living arrangements: with family Additional living arrangements comments: Lives in [place]. Has a teenage son. Additional occupation/education comments: Works at [employer]. [place] care concerns: No Meds Home Medications and Allergies Home Medications ?Medication ?Instructions ?Recorded ?Confirmed ?Type amoxicillin 875 mg-potassium 1 tablet PO BID #28 tabs 08/26/24 10/07/24 Rx clavulanate 125 mg tablet Allergies Allergy/AdvReac Type Severity Reaction Status Date / Time No Known Allergies Allergy Verified 10/07/24 08:37 Vital Signs Vital Signs - 24 hr 10/07/24 11:30 10/07/24 11:31 10/07/24 11:54 Temperature Pulse Rate 119 H 121 H 122 H Respiratory Rate 26 H 25 H 20 Blood Pressure 160/116 H Pulse Oximetry 100 Oxygen Delivery Fraction of Inspired Oxygen 10/07/24 12:00 10/07/24 12:01 10/07/24 12:15 Temperature Pulse Rate 116 H 115 H 122 H Respiratory Rate 25 H 24 H 19 Blood Pressure 172/112 H Pulse Oximetry 95 97 Oxygen Delivery Fraction of Inspired Oxygen 10/07/24 13:15 10/07/24 14:00 10/07/24 14:00 Temperature 98 F Pulse Rate 115 H 118 H 118 H Respiratory Rate 26 H 23 H Blood Pressure 114/103 H 157/110 H Pulse Oximetry 98 100 Oxygen Delivery Fraction of Inspired Oxygen 10/07/24 16:00 10/07/24 16:00 10/07/24 17:20 Temperature 98 F Pulse Rate 117 H 113 H 116 H Respiratory Rate 26 H Blood Pressure 168/112 H 153/103 H Pulse Oximetry 99 Oxygen Delivery Fraction of Inspired Oxygen 10/07/24 18:00 10/07/24 18:00 10/07/24 20:00 Temperature Pulse Rate 115 H 112 H 112 H Respiratory Rate 25 H 25 H Blood Pressure 152/100 H Pulse Oximetry 98 97 Oxygen Delivery Room Air Fraction of Inspired Oxygen 21 10/07/24 20:00 10/07/24 20:00 10/07/24 20:21 Temperature 98.2 F Pulse Rate 110 H 110 H Respiratory Rate 23 H Blood Pressure 165/103 H Pulse Oximetry 97 97 Oxygen Delivery Room Air Fraction of Inspired Oxygen 21 10/07/24 22:00 10/07/24 22:00 10/08/24 00:00 Temperature Pulse Rate 103 H 103 H 112 H Respiratory Rate 21 H 25 H Blood Pressure 153/102 H Pulse Oximetry 98 97 Oxygen Delivery Room Air Fraction of Inspired Oxygen 21 10/08/24 00:00 10/08/24 00:00 10/08/24 02:00 Temperature 98 F Pulse Rate 105 H 98 100 Respiratory Rate 21 H 21 H Blood Pressure 158/111 H 112/74 Pulse Oximetry 99 98 Oxygen Delivery Fraction of Inspired Oxygen 10/08/24 02:00 10/08/24 04:00 10/08/24 04:00 Temperature 98.1 F Pulse Rate 98 99 112 H Respiratory Rate 20 25 H Blood Pressure 134/88 Pulse Oximetry 97 97 Oxygen Delivery Room Air Fraction of Inspired Oxygen 21 10/08/24 04:00 10/08/24 06:00 10/08/24 06:00 Temperature Pulse Rate 94 99 99 Respiratory Rate 21 H Blood Pressure 102/76 Pulse Oximetry 98 Oxygen Delivery Fraction of Inspired Oxygen 10/08/24 08:00 10/08/24 08:00 10/08/24 08:00 Temperature 98.4 F Pulse Rate 101 H 112 H 103 H Respiratory Rate 14 25 H Blood Pressure 120/75 Pulse Oximetry 99 97 Oxygen Delivery Room Air Fraction of Inspired Oxygen 21 Exam 2 Const: General: comfortable and no acute distress Nutritional Appearance: a verage body habitus Orientation/consciousness: patient oriented x3 HENMT: Head: normocephalic and atraumatic Ears: hearing grossly normal bilaterally Mouth: Yes moist mucous membranes Eyes: General: appearance normal, both eyes and all related structures P upils: Equal, round and reactive pupils present Neck: Neck: normal visual inspection and full ROM Resp: Effort & Inspection: no respiratory distress Auscultation: clear to auscultation bilaterally Cardio: Rate: regular rate Rhythm: regular rhythm Peripheral pulses: P eripheral pulses 2+ throughout GI: Inspection: non-distended and no visible herniation GI Palp: Yes Soft to palpation, No Tenderness to palpation present (GI), No Guarding due to palpation present (GI) and No Rebound tenderness present Auscultation: normal bowel sounds Other: There is a tiny pinpoint opening in the left anterior perianal area with scant yellow drainage on the gauze overlying this opening, there is a scar from her previous fistulotomy noted that is well healed, no erythema or fluctuance, the opening is only mildly tender. No induration or other external abnormalities around the anus. Skin: General skin exam: normal color Neuro: General: moves all extremities and no focal motor deficits Speech: n ormal speech Motor exam (neuro): 5/5 motor strength present throughout Extrem: General: normal to inspection and no edema Psych: Mental Status: mental status grossly normal Attitude: cooperative Insight: Good insight present (Psych) Judgement: Good judgement present (Psych) Results Labs 10/08/24 04:19 10/08/24 04:19 Labs: Abnormal lab results 10/07/24 10/07/24 10/07/24 Range/Units 11:56 14:21 14:30 RBC (4.2-5.4) M/mm3 Plt Count (150-375) k/mm3 Immature Gran % (Auto) (0-0.5) % Abs Immat Gran (auto) (0.00-0.031) K/mm3 Sodium 130 L (137-145) mmol/L Potassium (3.4-5.0) mmol/L Carbon Dioxide 12 L (22-30) mmol/L Anion Gap 18 H (4-12) mmol/L BUN 5 L (7-17) mg/dL Creatinine 0.55 L (0.7-1.0) mg/dL Glucose (65-110) mg/dL POC Capillary Glucose 106 H (65-105) mg/dl Lactic Acid 3.6 H (0.7-2.0) mmol/L Calcium 7.3 L (8.4-10.2) mg/dL Phosphorus (2.5-4.5) mg/dL AST 53 H (14-36) U/L Total Protein (6.3-8.2) g/dL Albumin (3.5-5.1) g/dL Urine Ketones (Negative) mg/dL Ur Blood (Man) (Negative) Leukocyte Esterase Rfl (Negative) ALFONSO/UL Urine RBC (0-2) /hpf Urine WBC (0-3) /hpf 10/07/24 10/07/24 10/08/24 Range/Units 16:36 17:34 00:27 RBC (4.2-5.4) M/mm3 Plt Count (150-375) k/mm3 Immature Gran % (Auto) (0-0.5) % Abs Immat Gran (auto) (0.00-0.031) K/mm3 Sodium (137-145) mmol/L Potassium (3.4-5.0) mmol/L Carbon Dioxide (22-30) mmol/L Anion Gap (4-12) mmol/L BUN (7-17) mg/dL Creatinine (0.7-1.0) mg/dL Glucose (65-110) mg/dL POC Capillary Glucose 145 H 219 H (65-105) mg/dl Lactic Acid (0.7-2.0) mmol/L Calcium (8.4-10.2) mg/dL Phosphorus (2.5-4.5) mg/dL AST (14-36) U/L Total Protein (6.3-8.2) g/dL Albumin (3.5-5.1) g/dL Urine Ketones 3+ H (Negative) mg/dL Ur Blood (Man) 3+ H (Negative) Leukocyte Esterase Rfl 1+ H (Negative) ALFONSO/UL Urine RBC 6-10 H (0-2) /hpf Urine WBC 6-10 H (0-3) /hpf 10/08/24 10/08/24 Range/Units 04:19 04:20 RBC 3.85 L (4.2-5.4) M/mm3 Plt Count 136 L (150-375) k/mm3 Immature Gran % (Auto) 0.6 H (0-0.5) % Abs Immat Gran (auto) 0.04 H (0.00-0.031) K/mm3 Sodium 132 L (137-145) mmol/L Potassium 3.2 L (3.4-5.0) mmol/L Carbon Dioxide (22-30) mmol/L Anion Gap (4-12) mmol/L BUN 5 L (7-17) mg/dL Creatinine 0.54 L (0.7-1.0) mg/dL Glucose 158 H (65-110) mg/dL POC Capillary Glucose (65-105) mg/dl Lactic Acid 2.3 H (0.7-2.0) mmol/L Calcium 7.9 L (8.4-10.2) mg/dL Phosphorus 1.2 L (2.5-4.5) mg/dL AST 40 H (14-36) U/L Total Protein 6.0 L (6.3-8.2) g/dL Albumin 3.2 L (3.5-5.1) g/dL Urine Ketones (Negative) mg/dL Ur Blood (Man) (Negative) Leukocyte Esterase Rfl (Negative) ALFONSO/UL Urine RBC (0-2) /hpf Urine WBC (0-3) /hpf Diabetes panel 10/07/24 10/08/24 Range/Units 14:30 04:19 Sodium 130 L 132 L (137-145) mmol/L Potassium 3.7 3.2 L (3.4-5.0) mmol/L Chloride 100 102 (98-107) mmol/L Carbon Dioxide 12 L 23 (22-30) mmol/L BUN 5 L 5 L (7-17) mg/dL Creatinine 0.55 L 0.54 L (0.7-1.0) mg/dL Glucose 101 158 H (65-110) mg/dL Calcium 7.3 L 7.9 L (8.4-10.2) mg/dL AST 53 H 40 H (14-36) U/L ALT 35 26 (6-35) U/L Alkaline Phosphatase 61 53 (38-126) U/L Total Protein 7.0 6.0 L (6.3-8.2) g/dL Albumin 4.1 3.2 L (3.5-5.1) g/dL Thyroid panel 10/08/24 Range/Units 04:19 TSH 3.310 (0.465-4.680) uIU/mL Calcium panel 10/07/24 10/08/24 Range/Units 14:30 04:19 Calcium 7.3 L 7.9 L (8.4-10.2) mg/dL Phosphorus 1.2 L (2.5-4.5) mg/dL Albumin 4.1 3.2 L (3.5-5.1) g/dL Pituitary panel 10/07/24 10/08/24 Range/Units 14:30 04:19 Sodium 130 L 132 L (137-145) mmol/L Potassium 3.7 3.2 L (3.4-5.0) mmol/L Chloride 100 102 (98-107) mmol/L Carbon Dioxide 12 L 23 (22-30) mmol/L BUN 5 L 5 L (7-17) mg/dL Creatinine 0.55 L 0.54 L (0.7-1.0) mg/dL Glucose 101 158 H (65-110) mg/dL Calcium 7.3 L 7.9 L (8.4-10.2) mg/dL TSH 3.310 (0.465-4.680) uIU/mL Adrenal panel 10/07/24 10/08/24 Range/Units 14:30 04:19 Sodium 130 L 132 L (137-145) mmol/L Potassium 3.7 3.2 L (3.4-5.0) mmol/L Chloride 100 102 (98-107) mmol/L Carbon Dioxide 12 L 23 (22-30) mmol/L BUN 5 L 5 L (7-17) mg/dL Creatinine 0.55 L 0.54 L (0.7-1.0) mg/dL Glucose 101 158 H (65-110) mg/dL Calcium 7.3 L 7.9 L (8.4-10.2) mg/dL Total Bilirubin 1.1 1.2 (0.2-1.3) mg/dL AST 53 H 40 H (14-36) U/L ALT 35 26 (6-35) U/L Alkaline Phosphatase 61 53 (38-126) U/L Total Protein 7.0 6.0 L (6.3-8.2) g/dL Albumin 4.1 3.2 L (3.5-5.1) g/dL All other labs normal. Imaging Additional studies: ITS Impressions Abdomen/Pelvis CT 10/07/24 09:24 IMPRESSION: Heterogeneous enhancement of the uterus, a nonspecific finding. Fatty infiltration of the enlarged liver. Otherwise, unremarkable CT examination of the abdomen and pelvis, as detailed above.
--- NOTE | 2024-10-08 12:39 | PC.NURSE ---
This patient, Shruthi Evans, was transferred to [facility] on 10/08/24 at 1239. Personal belongings sent with patient. Report given to Allyson. Appropriate documentation sent with patient.
--- NOTE | 2024-10-08 13:49 | P.CDI_ITS ---
CDI Query Clarification Request BMI: 31.6 Nutritional Diagnostic Statement: Please refer to the comprehensive nutrition assessment for further information. If you agree with diagnosis of Moderate Malnutrition as related to inadequate oral intake in setting of acute disease as evidenced by < 75% EER for > 7 days; significant weight loss of 4% (6 ibs) 2 days; mild subcutaneous fat loss (orbital fat pad). Please specify severity if known: * Mild * Moderate * Severe * Other/Unknown <Amaya Franco RN - Last Filed: 10/08/24 13:49> Clarified Diagnosis Clarified Diagnosis: NO malnutrition. <Brooklyn Crump MD - Last Filed: 10/09/24 07:06>
--- NOTE | 2024-10-08 15:31 | P.PNIM_ITS ---
Progress Note: A&P Assessment and Plan (1) Alcoholic ketoacidosis: Code(s): E87.29 - Other acidosis Status: Acute Assessment and Plan: Patient presented with nausea, vomiting, abdominal discomfort, just not feeling well. Was found to have alcoholic ketoacidosis -received 3 L IV fluid bolus -will give additional IV fluids -decrease maintenance IV fluids, if patient continues to tolerate oral diet, will discontinue IV fluids later today -continue folic acid and thiamine, -continue CIWA protocol with p.r.n. lorazepam - continue chlordiazepoxide -monitor for alcohol withdrawal -lactic acids have resolved (2) Nausea and vomiting: Code(s): R11.2 - Nausea with vomiting, unspecified Status: Acute Assessment and Plan: Nausea and vomiting most likely related to alcohol intoxication -p.r.n. antiemetics (3) Abdominal pain: Code(s): R10.9 - Unspecified abdominal pain Status: Acute Assessment and Plan: most likely related to alcohol intoxication (4) Depression: Code(s): F32.A - Depression, unspecified Status: Acute Assessment and Plan: Patient is not taking any medications at home -will have care coordination arrange for rehab and also provide resources. (5) Perirectal abscess: Code(s): K61.1 - Rectal abscess Status: Acute Assessment and Plan: perianal abscess, for which she is being treated by the surgeon at [facility], and had an anal fistula fistulotomy on 06/10/2024. -On 08/26/2024: She followed up with Dr. Ramires and was referred to a colorectal specialist and started on antibiotics on the same day with Augmentin 875/125 mg p.o. b.i.d. for 14 days. -will start Zosyn as patient is not tolerating oral secondary to nausea and vomiting -for consult surgery (6) Hypertension: Code(s): I10 - Essential (primary) hypertension Status: Acute Assessment and Plan: Continue p.r.n. hydralazine (7) Electrolyte imbalance: Code(s): E87.8 - Other disorders of electrolyte and fluid balance, not elsewhere classified Status: Acute Assessment and Plan: Will replace potassium and phosphorus Plan DVT prophylaxis: Lovenox Stress ulcer prophylaxis: Protonix Nutrition: NPO except ice chips Code Status: Full code Subjective Date/time seen: 10/08/24 15:31 Interval history: Comfortable at bedside Review of Systems Review of Systems: 12 systems were reviewed and are negativ e except for as per HPI. All systems reviewed & are unremarkable except as noted in HPI and below Exam Narrative: General: Pleasant female, depressed, in no acute distress HEENT:? Pupils equal and reactive, sclerae is clear, moist oral mucosa Neck:? Supple Respiratory:? Clear to auscultation bilaterally, no wheezing Cardiac:? S1-S2 is normal, sinus tachycardia Abdomen:? Soft, nontender, nondistended, normoactive bowel sounds. Extremities:? No edema, positive pedal pulses Neuro:? Patient is awake, alert, oriented, nonfocal Skin:? No rash or other skin lesions noted Psych:? Depressed affect, normal mentation Objective Data Vital Signs Vital Signs: Vital Signs - 24 hr 10/07/24 16:00 10/07/24 16:00 10/07/24 17:20 Temperature 98 F Pulse Rate 117 H 113 H 116 H Respiratory Rate 26 H Blood Pressure 168/112 H 153/103 H Pulse Oximetry 99 Oxygen Delivery Fraction of Inspired Oxygen 10/07/24 18:00 10/07/24 18:00 10/07/24 20:00 Temperature Pulse Rate 115 H 112 H 112 H Respiratory Rate 25 H 25 H Blood Pressure 152/100 H Pulse Oximetry 98 97 Oxygen Delivery Room Air Fraction of Inspired Oxygen 10/07/24 20:00 10/07/24 20:00 10/07/24 20:21 Temperature 98.2 F Pulse Rate 110 H 110 H Respiratory Rate 23 H Blood Pressure 165/103 H Pulse Oximetry 97 97 Oxygen Delivery Room Air Fraction of Inspired Oxygen 10/07/24 22:00 10/07/24 22:00 10/08/24 00:00 Temperature Pulse Rate 103 H 103 H 112 H Respiratory Rate 21 H 25 H Blood Pressure 153/102 H Pulse Oximetry 98 97 Oxygen Delivery Room Air Fraction of Inspired Oxygen 10/08/24 00:00 10/08/24 00:00 10/08/24 02:00 Temperature 98 F Pulse Rate 105 H 98 100 Respiratory Rate 21 H 21 H Blood Pressure 158/111 H 112/74 Pulse Oximetry 99 98 Oxygen Delivery Fraction of Inspired Oxygen 10/08/24 02:00 10/08/24 04:00 10/08/24 04:00 Temperature 98.1 F Pulse Rate 98 99 112 H Respiratory Rate 20 25 H Blood Pressure 134/88 Pulse Oximetry 97 97 Oxygen Delivery Room Air Fraction of Inspired Oxygen 21 10/08/24 04:00 10/08/24 06:00 10/08/24 06:00 Temperature Pulse Rate 94 99 99 Respiratory Rate 21 H Blood Pressure 102/76 Pulse Oximetry 98 Oxygen Delivery Fraction of Inspired Oxygen 10/08/24 08:00 10/08/24 08:00 10/08/24 08:00 Temperature 98.4 F Pulse Rate 101 H 112 H 103 H Respiratory Rate 14 25 H Blood Pressure 120/75 Pulse Oximetry 99 97 Oxygen Delivery Room Air Fraction of Inspired Oxygen 21 10/08/24 12:00 Temperature Pulse Rate 103 H Respiratory Rate Blood Pressure Pulse Oximetry Oxygen Delivery Fraction of Inspired Oxygen Intake/Output Intake/Output: Intake & Output 10/05/24 10/06/24 10/07/24 10/08/24 23:59 23:59 23:59 23:59 Intake Total 4300 1615 Output Total 1600 2550 Balance 2700 -935 Meds/Results Medications: Active Medications Generic Name Dose Route Start Last Admin Trade Name Freq PRN Reason Stop Dose Admin Acetaminophen 650 mg 10/07/24 22:20 Acetaminophen 325 Mg Tablet PO Q6H PRN Mild Pain (1-3) or Fever Chlordiazepoxide HCl 25 mg 10/08/24 08:57 10/08/24 11:41 Chlordiazepoxide (*Crx) 25 Mg Capsule PO 25 mg Q6H PRN Administration Withdrawal Dextrose 12.5 gm 10/07/24 13:51 Dextrose 50% 25 Gm/50 Ml Syringe IV PUSH PRN PRN Hypoglycemia Protocol Enoxaparin Sodium 40 mg 10/08/24 09:00 10/08/24 08:15 Enoxaparin 40 Mg/0.4 Ml Syringe SUB-Q 40 mg DAILY ROMEL Administration Folic Acid 1 mg 10/08/24 09:00 10/08/24 08:15 Folic Acid 1 Mg Tablet PO 1 mg DAILY ROMEL Administration Glucagon 1 mg 10/07/24 13:51 Glucagon For Inj 1 Mg Vial IM PRN PRN Hypoglycemia Protocol Glucose 15 gm 10/07/24 13:51 Glucose Oral Gel 15 Gm Of Glucse In 37.5 Gm Tube PO PRN PRN Hypoglycemia Protocol Hydralazine HCl 10 mg 10/07/24 14:05 Hydralazine Hcl 20 Mg/Ml Vial IV PUSH Q4H PRN Blood Pressure - High Dextrose/Sodium Chloride 1,000 mls @ 75 mls/hr 10/07/24 08:35 10/08/24 08:10 Dextrose 5% Sodium Chloride 0.9% IV CONT 75 mls/hr .[id number] ROMEL Infusion Dextrose 1,000 mls @ 100 mls/hr 10/07/24 13:51 Dextrose 5% 1,000 Ml IVPB PRN PRN Hypoglycemia Protocol Piperacillin/Tazobactam/Dextrose 3.375 gm in 50 mls @ 100 mls/hr 10/07/24 15:00 10/08/24 14:18 Zosyn 3.375 Gm/Ns 50 Ml IVPB 100 mls/hr Q6H ROMEL Administration Lorazepam 4 mg 10/07/24 20:20 10/07/24 20:56 Lorazepam Inj (*Crx) 2 Mg/Ml Vial IV PUSH 4 mg Q2H PRN Administration CIWA > 15 Lorazepam 2 mg 10/07/24 20:20 Lorazepam Inj (*Crx) 2 Mg/Ml Vial IV PUSH Q2H PRN CIWA 8-15 Ondansetron HCl 4 mg 10/07/24 13:18 Ondansetron Inj 4 Mg/2 Ml Vial IV PUSH Q6H PRN Nausea And Vomiting Pantoprazole Sodium 40 mg 10/08/24 09:00 10/08/24 08:15 Pantoprazole Sodium Iv 40 Mg Vial IV PUSH 40 mg QAM ROMEL Administration Thiamine HCl 100 mg 10/08/24 09:00 10/08/24 08:15 Thiamine Hcl 100 Mg Tablet PO 100 mg QAM ROMEL Administration Radiology Results: ITS Impressions Abdomen/Pelvis CT 10/07/24 09:24 IMPRESSION: Heterogeneous enhancement of the uterus, a nonspecific finding. Fatty infiltration of the enlarged liver. Otherwise, unremarkable CT examination of the abdomen and pelvis, as detailed above. Labs Labs: Laboratory Results - last 24 hr 10/07/24 10/07/24 10/07/24 15:24 16:36 17:34 WBC RBC Hgb Hct MCV MCH MCHC RDW Plt Count MPV Immature Gran % (Auto) Neut % (Auto) Lymph % (Auto) [place] % (Auto) Eos % (Auto) Baso % (Auto) Lymph # (Auto) [place] # (Auto) Eos # (Auto) Baso # (Auto) Abs Immat Gran (auto) Absolute Neuts (auto) Absolute Nucleated RBC Nucleated RBC % Sodium Potassium Chloride Carbon Dioxide Anion Gap BUN Creatinine Estim Creat Clear Calc Estimated GFR Glucose POC Capillary Glucose 145 H Lactic Acid Calcium Phosphorus Magnesium Total Bilirubin AST ALT Alkaline Phosphatase Total Protein Albumin TSH Urine Color Yellow Urine Appearance Clear Urine pH 5.5 Ur Specific [place] 1.020 Urine Protein Negative Urine Glucose (UA) Negative Urine Ketones 3+ H Ur Blood (Man) 3+ H Urine Nitrate Negative Urine Bilirubin Negative Urine Urobilinogen 0.2 Leukocyte Esterase Rfl 1+ H Urine RBC 6-10 H Urine WBC 6-10 H Ur Squamous Epith Cells Occasional Urine Bacteria None seen Urine Casts 0-2 Nasal MRSA (PCR) Not detected 10/08/24 10/08/24 10/08/24 00:27 04:19 04:20 WBC 6.4 RBC 3.85 L Hgb 13.1 Hct 37.3 MCV 96.9 MCH 34.0 MCHC 35.1 RDW 13.3 Plt Count 136 L MPV 9.8 Immature Gran % (Auto) 0.6 H Neut % (Auto) 69.9 Lymph % (Auto) 22.2 [place] % (Auto) 6.6 Eos % (Auto) 0.5 Baso % (Auto) 0.2 Lymph # (Auto) 1.42 [place] # (Auto) 0.4 Eos # (Auto) 0.0 Baso # (Auto) 0.0 Abs Immat Gran (auto) 0.04 H Absolute Neuts (auto) 4.5 Absolute Nucleated RBC 0.000 Nucleated RBC % 0.0 Sodium 132 L Potassium 3.2 L Chloride 102 Carbon Dioxide 23 Anion Gap 7 BUN 5 L Creatinine 0.54 L Estim Creat Clear Calc 103 Estimated GFR > 60 Glucose 158 H POC Capillary Glucose 219 H Lactic Acid 2.3 H Calcium 7.9 L Phosphorus 1.2 L Magnesium 1.9 Total Bilirubin 1.2 AST 40 H ALT 26 Alkaline Phosphatase 53 Total Protein 6.0 L Albumin 3.2 L TSH 3.310 Urine Color Urine Appearance Urine pH Ur Specific [place] Urine Protein Urine Glucose (UA) Urine Ketones Ur Blood (Man) Urine Nitrate Urine Bilirubin Urine Urobilinogen Leukocyte Esterase Rfl Urine RBC Urine WBC Ur Squamous Epith Cells Urine Bacteria Urine Casts Nasal MRSA (PCR) 10/08/24 06:47 WBC RBC Hgb Hct MCV MCH MCHC RDW Plt Count MPV Immature Gran % (Auto) Neut % (Auto) Lymph % (Auto) [place] % (Auto) Eos % (Auto) Baso % (Auto) Lymph # (Auto) [place] # (Auto) Eos # (Auto) Baso # (Auto) Abs Immat Gran (auto) Absolute Neuts (auto) Absolute Nucleated RBC Nucleated RBC % Sodium Potassium Chloride Carbon Dioxide Anion Gap BUN Creatinine Estim Creat Clear Calc Estimated GFR Glucose POC Capillary Glucose Lactic Acid 1.5 Calcium Phosphorus Magnesium Total Bilirubin AST ALT Alkaline Phosphatase Total Protein Albumin TSH Urine Color Urine Appearance Urine pH Ur Specific [place] Urine Protein Urine Glucose (UA) Urine Ketones Ur Blood (Man) Urine Nitrate Urine Bilirubin Urine Urobilinogen Leukocyte Esterase Rfl Urine RBC Urine WBC Ur Squamous Epith Cells Urine Bacteria Urine Casts Nasal MRSA (PCR) Quality VTE Prophylaxis VTE prophylaxis: pharmacologic ordered
[2024-10-08] MEDS: DEXTROSE 5%/0.9% SOD CHL 1,000 ML 75 ML IV CONT (18:26)
[2024-10-09] MEDS: chlordiazePOXIDE (*CRX) 25 MG CAPSULE PO (00:03)
[2024-10-09 00:04] VITALS: PULSE 93
[2024-10-09] MEDS: PIPERACILLN/TAZ 3.375GM/NS50ML 3.375 GM/50 ML BAG IVPB (03:21)
[2024-10-09 04:00] VITALS: PULSE 95
[2024-10-09 05:13] VITALS: BP 155/109; PULSE 98; RESP 18; TEMP 36.4; O2SAT 100
[2024-10-09 05:21] LABS: Basophils Percent Auto 0.5 % (0.2-1.2); Eosinophils Absolute Auto 0.1 K/mm3 (0-0.3); Hematocrit 40.6 % (37.0-47.0); Hemoglobin 13.7 g/dL (12.0-15.0); Immature Granulocyte Absolute 0.02 K/mm3 (0.00-0.031); Immature Granulocyte Percent A 0.5 % (0-0.5); Lymphocytes Absolute Auto 1.77 K/mm3 (0.9-3.2); Lymphocytes Percent Auto 43.8 % (18.3-44.2); Mean Corpuscular HGB Conc 33.7 g/dl (32-36); Mean Corpuscular Hemoglobin 33.4 pg (26-34); Mean Platelet Volume 9.9 fl (7.4-10.4); Monocytes Absolute Auto 0.3 K/mm3 (0.1-0.6); Monocytes Percent Auto 7.9 % (2.6-8.5); Neutrophils Absolute Auto 1.8 K/mm3 (1.3-6.7); Neutrophils Percent Auto 45.3 % (45.5-73.1); Platelet Count Result 134 k/mm3 (150-375); Red Cell Distribution Width 13.8 % (11.5-14.5)
[2024-10-09 05:30] LABS: Alanine Aminotransferase 26 U/L (6-35); Albumin Level 3.5 g/dL (3.5-5.1); Alkaline Phosphatase 52 U/L (38-126); Anion Gap 8 mmol/L (4-12); Aspartate Amino Transferase 34 U/L (14-36); Bilirubin,Total 0.7 mg/dL (0.2-1.3); Blood Urea Nitrogen 7 mg/dL (7-17); Calcium 8.5 mg/dL (8.4-10.2); Carbon Dioxide 28 mmol/L (22-30); Chloride 102 mmol/L (98-107); Estimated CRCL calculation 102 ml/min; Estimated Glomerular Filt Rate > 60; Glucose 116 mg/dL (65-110); Magnesium 1.9 mg/dL (1.6-2.3); Potassium 3.2 mmol/L (3.4-5.0); Sodium 138 mmol/L (137-145)
--- NOTE | 2024-10-09 11:10 | PC.NURSE ---
Pt was refused morning meds this morning and was tired of waiting on discharge so pt signed out AMA. Left a message with the provider to let him know.
--- NOTE | 2024-10-09 11:35 | P.PNIM_ITS ---
Progress Note: A&P Assessment and Plan (1) Alcoholic ketoacidosis: Code(s): E87.29 - Other acidosis Status: Acute Assessment and Plan: Patient presented with nausea, vomiting, abdominal discomfort, just not feeling well. Was found to have alcoholic ketoacidosis resolved, status IVF was on folic acid and thiamine CIWA protocol and PRN Librium -lactic acids have resolved Patient left AMA (2) Nausea and vomiting: Code(s): R11.2 - Nausea with vomiting, unspecified Status: Acute Assessment and Plan: Nausea and vomiting most likely related to alcohol intoxication -p.r.n. antiemetics (3) Abdominal pain: Code(s): R10.9 - Unspecified abdominal pain Status: Acute Assessment and Plan: most likely related to alcohol intoxication (4) Depression: Code(s): F32.A - Depression, unspecified Status: Acute Assessment and Plan: Patient is not taking any medications at home -will have care coordination arrange for rehab and also provide resources. (5) Perirectal abscess: Code(s): K61.1 - Rectal abscess Status: Acute Assessment and Plan: perianal abscess, for which she is being treated by the surgeon at [facility], and had an anal fistula fistulotomy on 06/10/2024. -On 08/26/2024: She followed up with Dr. Ramires and was referred to a colorectal specialist and started on antibiotics on the same day with Augmentin 875/125 mg p.o. b.i.d. for 14 days. -will start Zosyn as patient is not tolerating oral secondary to nausea and vomiting Patient will continue follow up with surgery outpatient as scheduled (6) Hypertension: Code(s): I10 - Essential (primary) hypertension Status: Acute Assessment and Plan: Continue p.r.n. hydralazine started on Lisinopril and HCTZ patient does not remember her home meds monitor (7) Electrolyte imbalance: Code(s): E87.8 - Other disorders of electrolyte and fluid balance, not elsewhere classified Status: Acute Assessment and Plan: Will replace potassium and phosphorus Plan DVT prophylaxis: Lovenox Stress ulcer prophylaxis: Protonix Nutrition: NPO except ice chips Code Status: Full code Patient left AMA Subjective Date/time seen: 10/09/24 11:35 Interval history: Patient left AMA this morning Review of Systems Review of Systems: 12 systems were reviewed and are negativ e except for as per HPI. All systems reviewed & are unremarkable except as noted in HPI and below Exam Narrative: General: Pleasant female, depressed, in no acute distress HEENT:? Pupils equal and reactive, sclerae is clear, moist oral mucosa Neck:? Supple Respiratory:? Clear to auscultation bilaterally, no wheezing Cardiac:? S1-S2 is normal, sinus tachycardia Abdomen:? Soft, nontender, nondistended, normoactive bowel sounds. Extremities:? No edema, positive pedal pulses Neuro:? Patient is awake, alert, oriented, nonfocal Skin:? No rash or other skin lesions noted Psych:? Depressed affect, normal mentation Objective Data Vital Signs Vital Signs: Vital Signs - 24 hr 10/08/24 12:00 10/08/24 16:00 10/08/24 16:00 Temperature 98.1 F Pulse Rate 103 H 113 H 97 Respiratory Rate 19 Blood Pressure 124/76 Pulse Oximetry 98 Oxygen Delivery Fraction of Inspired Oxygen 10/08/24 20:00 10/08/24 20:20 10/08/24 21:11 Temperature 97.8 F Pulse Rate 107 H 102 H 102 H Respiratory Rate 18 18 Blood Pressure 161/118 H Pulse Oximetry 100 100 Oxygen Delivery Room Air Fraction of Inspired Oxygen 21 10/08/24 21:18 10/09/24 00:04 10/09/24 04:00 Temperature Pulse Rate 93 95 Respiratory Rate Blood Pressure Pulse Oximetry 99 Oxygen Delivery Autopap Fraction of Inspired Oxygen 10/09/24 05:13 10/09/24 08:00 Temperature 97.6 F Pulse Rate 98 Respiratory Rate 18 Blood Pressure 155/109 H Pulse Oximetry 100 Oxygen Delivery Room Air Fraction of Inspired Oxygen Intake/Output Intake/Output: Intake & Output 10/06/24 10/07/24 10/08/24 10/09/24 23:59 23:59 23:59 23:59 Intake Total 4300 4061 1000 Output Total 1600 2550 Balance 2700 1511 1000 Meds/Results Radiology Results: ITS Impressions Abdomen/Pelvis CT 10/07/24 09:24 IMPRESSION: Heterogeneous enhancement of the uterus, a nonspecific finding. Fatty infiltration of the enlarged liver. Otherwise, unremarkable CT examination of the abdomen and pelvis, as detailed above. Labs Labs: Laboratory Results - last 24 hr 10/09/24 05:09 WBC 4.0 L RBC 4.10 L Hgb 13.7 Hct 40.6 MCV 99.0 MCH 33.4 MCHC 33.7 RDW 13.8 Plt Count 134 L MPV 9.9 Immature Gran % (Auto) 0.5 Neut % (Auto) 45.3 L Lymph % (Auto) 43.8 [place] % (Auto) 7.9 Eos % (Auto) 2.0 Baso % (Auto) 0.5 Lymph # (Auto) 1.77 [place] # (Auto) 0.3 Eos # (Auto) 0.1 Baso # (Auto) 0.0 Abs Immat Gran (auto) 0.02 Absolute Neuts (auto) 1.8 Absolute Nucleated RBC 0.000 Nucleated RBC % 0.0 Sodium 138 Potassium 3.2 L Chloride 102 Carbon Dioxide 28 Anion Gap 8 BUN 7 Creatinine 0.54 L Estim Creat Clear Calc 102 Estimated GFR > 60 Glucose 116 H Calcium 8.5 Magnesium 1.9 Total Bilirubin 0.7 AST 34 ALT 26 Alkaline Phosphatase 52 Total Protein 6.0 L Albumin 3.5 Quality VTE Prophylaxis VTE prophylaxis: pharmacologic ordered
--- NOTE | 2024-10-10 07:16 | P.DS_ITS ---
DS: Admitting Diagnosis Discharge Date 10/09/24 Admitting Diagnosis Nausea, vomiting, and abdominal discomfort. DS: Discharge Diagnosis Discharge Diagnosis (1) Nausea and vomiting: Code(s): R11.2 - Nausea with vomiting, unspecified Status: Acute (2) Alcoholic ketoacidosis: Code(s): E87.29 - Other acidosis Status: Acute DS: Summary Hospital Course Hospital Course: This is a 43-year-old female with history of alcohol abuse, hypertension, anxiety, and depression who presented to the emergency department with complaints of nausea, vomiting, and abdominal discomfort. She drinks whiskey in excess daily but does binge drink as well and she has been drinking about a 5th of whiskey a day for the last week or more. It is not unusual for her to get up in the middle of the night to take a shot to help with sleep or anxiety. Her last drink was about 01:00 and within about 6 hours or so she began to feel increasingly anxious and tremulous. Shortly thereafter she developed abdominal discomfort, burning in her throat, and nausea. She reports having multiple episodes of nonbloody and nonbilious emesis prior to coming to the ED. Of note, she received treatment for a perianal abscess last winter status post anal fistula fistulotomy per Dr. Ramires. She saw him in follow-up last month and was referred to a colorectal specialist due to ongoing issues and she completed a course of Augmentin at that time. She still has discomfort in the area. She denies fever, cold and flu symptoms, chest pain, shortness of breath, hematemesis, diarrhea, melena, diarrhea, and dysuria. She also denies hallucinations and has no history of alcohol withdrawal seizures. In the ED: Labs were significant for a WBC count of 13.0, hemoglobin 15.5, platelet 222, sodium 132, potassium 3.8, BUN 9, creatinine 0.70, glucose 68, INR 0.9, AST 64, ALT 44, ethyl alcohol 117, lactic acid 6.0, beta hydroxybutyrate 3.74. Drug screen was positive for cannabinoids. CT of the abdomen and pelvis sh owed no acute findings. She received 3 L IV fluid bolus with improvement her lactic acid to 3.6. She also received IV lorazepam for anxiety and withdrawal symptoms and Zosyn for perianal abscess. Patient was initially admitted to the ICU and stabilized and transferred to the floor. lactic acidosis resolved with IVF, she was on continued on Zosyn for existing Perianal abscess for which she follows a surgery outpatient. Blood pressure today was elevated and patient was started on new medications. However patient prior to encounter. Time Spent with Patient Time attestation: Total time spent providing and/or coordinating discharge services: DS: Data Data Completed and Pending Labs on day of discharge: Preliminary micro results at discharge 10/07/24 14:30 Blood Culture - Preliminary Blood 10/07/24 14:45 Blood Culture - Preliminary Blood Discharge Plan Discharge Attending physician on discharge: Tami Narvaez Consulting providers: Brooklyn Crump; Andria Villeda; Pretty Carvajal; Chavo Solo; Uma Daniel Discharging Clinician: Tami Narvaez Patient Disposition: Left Against Medical Advice Activity: as tolerated Diet: as tolerated Patient Language: Citizen Of [place] Discharge Medications: No Action amoxicillin-pot clavulanate 875-125 mg tablet 1 tablet PO BID Qty: 28 0RF Date of admission: 10/07/24 11:08 Primary Care Provider: AngEren Admitting Provider: Tr Jha Attending physician on admission: Tami Narvaez Condition: Stable
== END 2024-10-09 11:05 | disposition left against medical advice (07) ==
LOC: ANHED 10:58 → ANHICU 16:15 → ANH2MED 10-10 07:06
PROVIDERS: Internal Medicine; Admitting Provider Family Medicine; Emergency Provider Emergency Medicine; PCP Family Medicine; Visit Provider Internal Medicine
DX: F10.229 Alcohol dependence with intoxication, unspecified (principal); E87.29 Other acidosis; K61.1 Rectal abscess; R10.9 Unspecified abdominal pain; R11.2 Nausea with vomiting, unspecified; F41.9 Anxiety disorder, unspecified; F32.A Depression, unspecified; I10 Essential (primary) hypertension; F12.90 Cannabis use, unspecified, uncomplicated; E87.8 Other disorders of electrolyte and fluid balance, not elsewhere classified; Z79.2 Long term (current) use of antibiotics
CPT/HCPCS: 36415; 74177; 80053; 80307; 81001; 81025; 82010; 82077; 82948; 83605; 83690; 83735; 84100; 84443; 85025; 85610; 87040; 87086; 87641; 93005; 96361; 96365; 96366; 96372; 96374; 96375; 96376; 99285; A9270; G0378; G0379; J1650; J1815; J2060; J2405; J2470; J2543; J3411; J7030; J7042; J7050; J7120; Q9967

== ENCOUNTER 2025-01-01 15:25 | Emergency (ER) | payer OTHER, SELFPAY ==
--- NOTE | ~2025-01-01 | CT_ITS ---
CT abdomen pelvis w con Ordering provider: Cortez Pagan III DO History: 44 years Female with . epigastric pain . Comparison: October 07, 2024 Technique: CT abdomen and pelvis with IV and without oral contrast. Automated exposure control and it erative reconstruction technique were employed. The dose-length product was 443.28 mGy-cm. 100 mL Omn ipaque 350 was given IV. Findings: VISUALIZED LOWER CHEST: 3 mm nodule is seen in the left lower lobe laterally. UPPER ABDOMINAL ORGANS: Liver: Fat infiltration. Hepatomegaly. Gallbladder: Distended with no gallstones. Spleen: Normal. Stomach/duodenum: Normal. Pancreas: Normal. Adrenals: Normal. Kidneys: Normal. PELVIC ORGANS: The bladder is underfilled with thickened wall. BOWEL AND MESENTERY: Colon: No evidence of diverticulitis. Normal appendix. Small Bowel: Normal. No obstruction. Peritoneum/mesentery: No free air or free fluid. No mesenteric lymphadenopathy. RETROPERITONEUM: Normal aorta. No retroperitoneal lymphadenopathy. MUSCULOSKELETAL: Superficial soft tissues: The superficial soft tissues are normal. Bones: Normal spine. Bilateral sacroiliitis. IMPRESSION: 1. Acute infiltration of the liver with hepatomegaly. 2. No evidence of appendicitis, diverticulitis or intestinal obstruction. 3. Tiny nodule in the left lower lobe. 12 months follow-up CT is advised. Reviewed, dictated and finalized at location A.
--- OUTSIDE RECORDS SUMMARY | 2025-01-01 15:27 | XMS_ITS | Data Portability ---
Author Organization [place] [facility], Main Office Address [address] [place] [address] Care Team Providers Care Instructor Watch Assembly Name Role Phone EREN FRY Primary Care Provider Assessment No assessment recorded. Plan of Treatment Reminders Order Date Submit Date Provider Last Modified By Organization Details Last Modified Time Details Appointments None recorded. Lab None recorded. Referral orthopedic spine surgeon referral - Please call patient to schedule an appointment . Thank you. 2024 025 [email or web address] [facility] Dept Of Orthopedics, [address] [place], [address], 5 09:16:52 physical therapist referral - Please call pt to schedule 2024 025 Formerly named [facility] Physical Therapy, [address], [place], [address], 5 19:28:50 psychiatris t referral - Please call patient to schedule an appointment . Thank you. 2023 024 [email or web address] Kaylie [facility], [address] [facility], [place], [address], 4 09:04:52 Procedures None recorded. Surgeries None recorded. Imaging XR, lumbosacral spine, 2 or 3 view 2024 025 [email or web address] [facility] ([facility]), [address] [facility] [facility] [place], [address], 5 16:27:38 Medication Orders phentermine 37.5 mg capsule 2024 025 [facility], [address], [place], [id number], 5 15:03:40 ketorolac 60 mg/2 mL intramuscul ar solution 2024 025 [email or web address] Not available 14:36:44 hydrocodone 5 mg-acetamin ophen 325 mg tablet [address] [facility]06500, [address], [place], [id number], 5 14:36:48 triamcinolo ne acetonide 40 mg/mL suspension for injection 2024 025 cheli Not available 16:00:56 cyclobenzap rine 10 mg tablet [address] [facility] #49859, [address], [place], [id number], 5 14:36:33 Medrol (Patrice) 4 mg tablets in a dose pack [address] [facility] #62004, [address], [place], [id number], 5 15:44:50 tramadol 50 mg tablet 2024 025 [facility], [address], [place], [id number], 5 16:05:23 phentermine 15 mg capsule 2023 024 [facility], [address], [place], [id number], 15:48:57 trazodone 50 mg tablet [address] [facility] #47545, [address] [facility], [place], [place], [id number], 15:49:08 sulfamethox azole 800 mg-trimetho prim 160 mg tablet 2023 [address] [facility] [address] [email or web address] [facility]345, [address] [facility], [place], [place], [id number], 15:49:04 Patient TargetsNo targets recorded. Patient InstructionsNo instructions recorded. Reason for Referral Psychiatrist Referral for Mi xed anxiety and depressive disorder Please call patient to schedule an appointment. Thank you. Referring Physician: Sharon Leonardo [facility], Encounter Date: 04/29/2024 Physical Therapist Referral for Lumbago with sciatica Please call pt to schedule Referring Physician: Sharon Leonardo [facility], Encounter Date: 07/09/2024 Orthopedic Spine Surgeon Ref erral for Lumbar spondylosis Please call patient to schedule an appointment. Thank you. Referring Physician: Sharon Leonardo [facility], Encounter Date: 07/24/2024 Results Created Date Observation Date Name Description Value Unit Range Abnormal Flag Note LastModifiedBy Organization Detail LastModifiedTime 07/09/1907/09/2024 urina lysis , dipst ick Leukocytes (reference range: negative gaye/ l) Negati ve Not Available [facility] [address] [place], [address], 07/09/2024 16:57:48 07/09/1907/09/2024 urina lysis , dipst ick Nitrite (reference rage: negative mg/dl) negati ve Not Available [facility] access hospital [address] [place], [address], 07/09/2024 16:57:48 07/09/19 25 07/09/2024 urina lysis , dipst ick Urobilinogen (reference range: 0.2-1 mg/dl) 0.2 Not Available [address], [address], 07/09/2024 16:57:48 07/09/19 25 07/09/2024 urina lysis , dipst ick Protein (reference range: negative mg/dl) Negati ve Not Available [address], [address], 07/09/2024 16:57:48 07/09/19 25 07/09/2024 urina lysis , dipst ick pH (reference range: 5-7) 6.5 Not Available [address], [address], 07/09/2024 16:57:48 07/09/19 25 07/09/2024 urina lysis , dipst ick Blood (reference range: negative Ted/ l) Negati ve Not Available [address], [address], 07/09/2024 16:57:48 07/09/19 25 07/09/2024 urina lysis , dipst ick Specific Logan (reference range: 1.005-1.030) 1.010 Not Available [address], [address], 07/09/2024 16:57:48 07/09/19 25 07/09/2024 urina lysis , dipst ick Ketone (reference range: negative mg/dl) Negati ve Not Available [address], [address], 07/09/2024 16:57:48 07/09/19 25 07/09/2024 urina lysis , dipst ick Bilirubin (reference range: negative mg/dl) Negati ve Not Available [address], [address], 07/09/2024 16:57:48 07/09/19 25 07/09/2024 urina lysis , dipst ick Glucose (reference range: negative mg/dl) Negati ve Not Available [address], [address], 07/09/2024 16:57:48 07/09/19 25 07/09/2024 urina lysis , dipst ick Appearance Clear Not Available [address], [address], 07/09/2024 16:57:48 07/09/19 25 07/09/2024 urina lysis , dipst ick Color Yellow Not Available [address], [address], 07/09/2024 16:57:48 07/11/19 25 07/11/2024 CT, lumba r spine , w/o contr ast No observ ation record ed. [address], [address], 07/14/2024 09:32:48 08/18/19 25 08/18/2024 XR, chest , 2 view No observ ation record ed. [address], [address], 08/18/2024 12:17:36 10/08/19 25 10/07/2024 CT, abdom en + pelvi s, w/ contr ast No observ ation record ed. [address] [place], [address], 10/08/2024 10:14:59 Result Notes None recorded. Problems Name Problem SNOMED Code Status Onset Date Resolution Date Notes Provider Name and Address Organization Details Recorded Time Bipolar disorder 82438763 Active 2021 Not Available [facility] 3 00:58:00 Harmful pattern of use of alcohol 39875906 Active 2022 Not Available [facility] 3 00:58:00 Irritable bowel syndrome with diarrhea 599418264 Active 2021 Not Available [facility] 3 00:58:01 Anxiety disorder 087426194 Active 2021 Not Available [facility] 3 00:58:01 Depressive disorder 01944081 Active 2021 Not Available [facility] 3 00:58:01 Hypertensi ve disorder 82093627 Active 2021 Not Available [facility] 3 00:58:01 Obesity 953291782 Active 2021 Not Available [facility] 3 00:58:01 Alcohol dependence 74061233 Active 2022 Not Available [facility] 3 00:58:01 Chronic insomnia 107905522 Active 2021 Not Available [facility] 3 00:58:01 Seasonal allergic rhinitis 050134058 Active 2022 Eren Fry MD [address], [place], [address] , [employer] [facility] [employer] 3 15:18:38 Impacted cerumen of bilateral ears 6452633393995 108 Active 2023 Eren Fry MD [address], [place], [address] , [employer] [facility] [employer] 4 11:02:24 Labial cyst 503651980 Active 2023 GAIL Prakash [address], [place], [address] , [employer] [facility] [employer] 4 09:42:05 Insomnia 721937181 Active 2023 GAIL Prakash [address] [facility] [place] [address], [place], [address] , [facility] [employer] [facility] 4 09:45:01 Mixed anxiety and depressive disorder 513816694 Active 2023 GAIL Prakash [address] [facility] [facility] [place] [address], [place], [address] , [facility] [employer] [facility] [employer] [facility] 4 16:16:57 Lumbago with sciatica 123349834 Active 2024 GAIL Prakash [address] [facility], [place] [address], [place], [address] , [facility] [employer] [facility] [employer] 5 16:21:33 Flank pain 592595486 Active 2024 GAIL Prakash [address] [facility], [place] [address], [place], [address] , [facility] [employer] [facility] [employer] [facility] 5 16:57:45 Lumbar spondylosi s 241688834 Active 2024 GAIL Prakash [address] [facility], [place] [address], [place], [address] , [facility] [employer] [facility] [employer] 5 15:59:19 Rectal fistula 40657054 Active 2024 GAIL Prakash [address] [facility], [place] [address], [place], [address] , [facility] [employer] [facility] [employer] 5 14:46:43 Problem Notes None recorded. Procedures Surgical History Date Name Laterality Status Provider Name and Address Organization Details Recorded Time 4 Date of Last Pap Smear completed Jerica Duque RN [facility] [employer] 07/09/2024 16:17:04 delivery completed Not Available [facility] 08/24/2022 00:57:15 Imaging Results None recorded. Procedure Notes None recorded. Medical Equipment None Reported. Allergies No known drug allergies Medications Name Sig Start Date Stop Date Status Note LastModified by Organization Details LastModified Time cyclobenz aprine 10 mg tablet TAKE 1 TABLET BY MOUTH TWICE DAILY FOR 14 DAYS NEEDED 11/07 completed Not Available Not Available Not Available doxycycli ne hyclate 100 mg capsule [...] EVERY 6 HOURS FOR 7 DAYS NEEDED 11/07 completed Not Available Not Available Not Available naltrexon e 50 mg tablet TAKE [...] 1 TABLET BY MOUTH EVERY 8 HOURS 11/07 completed Not Available Not Available Not Available [...] completed Not Available Not Available Not Available tramadol 50 mg tablet TAKE 1 TABLET BY MOUTH EVERY 6 HOURS NEEDED FOR PAIN active Not Available Not Available No t Available phentermi ne 30 mg capsule TAKE [...] MOUTH THREE TIMES DAILY NEEDED FOR PAIN 11/07 completed Not Available Not Available Not Available chlordiaz epoxide 10 mg capsule TAKE [...] cular route as directed for 1 day. 11/07 completed Not Available Not Available Not Available ondansetr on 4 mg disintegr ating tablet DISSOLVE 1 TABLET ON THE TONGUE EVERY 8 HOURS NEEDED FOR NAUSEA OR VOMITING 03/10 completed Not Available Not Available Not Available fluoxetin e 20 mg capsule TAKE 1 CAPSULE BY MOUTH EVERY DAY IN THE MORNING 01/15 completed Not Available Not Available Not Available fluticaso ne propionat e 50 mcg/actua tion nasal spray,denys pension [place] 2 sprays every day by intranas al [...] TAKE 1 TABLET BY MOUTH TWICE DAILY 11/07 completed Not Available Not Available Not Available [...] TABLETS BY MOUTH THREE TIMES DAILY DIRECTED active Not Available Not Available No t Available Vivitrol 1 injectio n monthly 11/07 completed Not Available Not Available Not Available [...] saturation in Arterial blood by Pulse oximetry Provider Name and Address Organization Details Last Updated DateTime 5 154.94 cm 31 kg/m2 17306.1 5 g 98 [degF] 108 /min 24 /min 98 % 98 % Jerica Duque RN [facility] [employer] [facility] 5 16:13:11 Date Recorded Body height Body mass index (BMI) Body weight Body temperature Heart rate Respiratory rate Oxygen saturation Oxygen saturation in Arterial blood by Pulse oximetry Systolic And Diastolic Provider Name and Address Organization Details Last Updated DateTime 5 154.94 cm 30.3 kg/m2 99200.8 8 g 97.2 [degF] 100 /min 20 /min 99 % 99 % 120/82 mm[Hg] Jerica Duuqe RN [facility] [employer] [facility] 5 15:48:43 Date Recorded Body height Body mass index (BMI) Body weight Body temperature Heart rate Respiratory rate Oxygen saturation Oxygen saturation in Arterial blood by Pulse oximetry Systolic And Diastolic Provider Name and Address Organization Details Last Updated DateTime 5 154.94 cm 31.4 kg/m2 92664.0 8 g 97 [degF] 114 /min 20 /min 99 % 99 % 120/80 mm[Hg] Jerica Duque RN [facility] [employer] [facility] 5 14:39:26 Date Recorded Body height Body mass index (BMI) Body weight Body temperature Heart rate Respiratory rate Oxygen saturation Oxygen saturation in Arterial blood by Pulse oximetry Systolic And Diastolic Provider Name and Address Organization Details Last Updated DateTime 4 154.94 cm 30.8 kg/m2 35208.9 1 g 97.2 [degF] 92 /min 20 /min 99 % 99 % 122/78 mm[Hg] Jerica Duque RN [facility] [employer] [facility] 4 09:33:14 Date Recorded Body height Body mass index (BMI) Body weight Body temperature Heart rate Respiratory rate Oxygen saturation Oxygen saturation in Arterial blood by Pulse oximetry Systolic And Diastolic Provider Name and Address Organization Details Last Updated DateTime 4 154.94 cm 31.7 kg/m2 53059.0 8 g 97.2 [degF] 90 /min 24 /min 99 % 99 % 120/80 mm[Hg] Jerica Duque RN [facility] [employer] [facility] 4 15:52:06 Social History Question Answer Notes LastModified by Organizat ion Details LastModified Time Tobacco Smoking Status Never Smoker Not Available [facility] 08/24/2022 00:57:11 Do You Have An Advance Directive? No [id number] Information not available 08/24/2022 Do You Wear A Helmet When Biking? No MIGRATION.21243 82010 Information not available 08/24/2022 What Is Your Level Of Caffeine Consumption? Moderate MIGRATION.18063 87387 Information not available 08/24/2022 In The 14 Days Before Symptom Onset, Have You Had Close Contact With A Laboratory-confir med COVID-19 While That Case Was Ill? No MIGRATION.[id number] 13306 Information not available 08/24/2022 In The 14 Days Before Symptom Onset, Have You Had Close Contact With A Person Who Is Under Investigation For COVID-19 While That Person Was Ill? No MIGRATION.00513 34592 Information not available 08/24/2022 What Type Of Diet Are You Following? REGULAR MIGRATION.25101 13217 Information not available 08/24/2022 What Is The Highest Grade Or Level Of School You Have Completed Or The Highest Degree You Have Received? [id number] MIGRATION.32232 72413 Information not available 08/24/2022 Have There Been Any Changes To Your Family Or Social Situation? No MIGRATION.47023 16956 Information not available 08/24/2022 What Is The Fluoride Status Of Your Home? Unknown MIGRATION.06817 59692 Information not available 08/24/2022 Do You Use Insect Repellent Routinely? No MIGRATION.28523 21532 Information not available 08/24/2022 Where Do You Live? [place] MIGRATION.05617 09994 Information not available 08/24/2022 Are You Following A Low Salt Diet? No MIGRATION.65025 91731 Information not available 08/24/2022 Do You Have A Medical Power Of Patient Care Assistant? No MIGRATION.55945 75311 Information not available 08/24/2022 Do You Have Any Pets? No MIGRATION.38159 84016 Information not available 08/24/2022 What Is Your Relationship Status? Single MIGRATION.23197 24690 Information not available 08/24/2022 Do You Use Your Seat Belt Or Car Seat Routinely? Yes MIGRATION.09627 71788 Information not available 08/24/2022 Do You Have Smoke And Carbon Monoxide Detectors In Your Home? Yes MIGRATION.80905 78754 Information not available 08/24/2022 Are You Passively Exposed To Smoke? No MIGRATION.73661 40915 Information not available 08/24/2022 Are There Any Smokers In Your House? No MIGRATION.50243 86878 Information not available 08/24/2022 Do You Participate In Social Media? Yes MIGRATION.19481 29726 Information not available 08/24/2022 Do You Use Sunscreen Routinely? No MIGRATION.45853 23193 Information not available 08/24/2022 Have You Recently Traveled Abroad? No MIGRATION.94374 70475 Information not available 08/24/2022 Do You Have Any Dietary Restrictions? Yes MIGRATION.24335 77546 Information not available 08/24/2022 Sex: Female Functional Status Question Answer Note LastModified by Organizat ion Details LastModified Time What is your level of alcohol consumption? 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 Occasional MIGRATION.259941 8615 Information not available 08/24/2022 Mental Status Question Answer Note LastModified by Organization D etails LastModified Time Do you feel stressed (tense, restless, nervous, or anxious, or unable to sleep at night)? [id number] Information not available 09/26/2023 Family History Relationship Description Onset Age of this Age Resolved Age Notes LastModified by Organization Details LastModified Time Mother Hypertensive disorder [id number] Not available 08/24/2022 00:57:17 Mother Heart disease MIGRATION.874 [id number] Not available 08/24/2022 00:57:17 Medical History Condition Response BLINDNESS N RHEUMATIC FEVER N KIDNEY STONES N BLADDER PROBLEMS N MRSA N OTHER # 1 N POLIO N LUNG DISEASE/DISORDER N HISTORY OF DRUG ABUSE N RADIATION / CHEMOTHERAPY N COPD N Other # 2 N BLOOD DISEASES N SURGERY N EAR OR HEARING PROBLEMS N MUMPS N SHINGLES N FEMALE PROBLEMS / INFECTIONS N DEPRESSION (INCLUDING POST ) Y BOWEL PROBLEMS N STROKE/TIA N THYROID DISEASE N ULCERS N BENIGN PROSTATIC HYPERPLASIA N MEASLES N CERVICALGIA N TB SKIN TEST N HYPOTENSION N MYOCARDIAL INFARCTION N PARAPELGIA N OBESITY [...] GLAUCOMA N FOOT PROBLEM N DIVERTICULITIS N SLEEP APNEA N CHICKENPOX N ALLERGIES/HAYFEVER N INFECTIOUS DISEASE N PROSTATE N HEART ARRHYTHMIA N INSOMNIA N HIGH CHOLESTEROL / HYPERLIPIDEMIA N EYE PROBLEMS N HYPERTHYROIDISM N EATING DISORDER N EDEMA N CHRONIC PAIN SYNDROME N CAROTID BLOCKAGE N CONSTIPATION N BACK / NECK PROBLEMS Y HAVE YOU BEEN HOSPITALIZED OR SEEN IN [facility] IN THE PAST YEAR ? N ATHEROSCLEROSIS [...] DISORDER N ALZHEIMER'S DISEASE N PAIN N DEMENTIA N HERPES N SEIZURES/EPILEPSY N HEADACHES/MIGRAINES N VASCULAR DISEASE N PACEMAKER N DIZZINESS N HEART DISEASE/HEART PROBLEMS N KIDNEY DISEASE Y SCARLET FEVER N MULTIPLE SCLEROSIS N DEVELOPMENTAL OR BEHAVIORAL DISORDERS N MENTAL DISORDER/ILLNESS N CANCER: SPECIFY N CARDIAC ARRHYTHMIA N PNEUMONIA N ATRIAL FIBRILLATION N Gall [...] SNOMED-CT Code Diagnosis ICD10 Code Diagnosis Note [id number] Eren Fry MD [address] [address] 09/26/2021 00:00:00 09/26/2021 15:24:14 [id number] Eren Fry MD [address] [address] 11/17/2021 00:00:00 11/17/2021 12:35:43 [id number] Eren Fry MD [address] [address] 07/11/2022 00:00:00 07/11/2022 15:26:56 [id number] Eren Fry MD [address] [address] 08/14/2022 00:00:00 08/14/2022 16:23:46 [id number] Eren Fry MD [address] [address] 09/11/2022 15:57:47 09/11/2022 16:21:22 Alcohol dependence 13753371 F10.20 Depressive disorder 3548 9007 F32.A Anxiety disorder 6312541 06 F41.9 Chronic insomnia 4078151 04 F51.04 Obesity 650496094 E66.9 [id number] Eren Fry MD [address] [place] [address] 10/25/2022 08:50:49 10/25/2022 09:14:51 Anxiety disorder 844547099 F41.9 Alcohol dependence 38662 003 F10.20 History Depressive disorder 3548 9007 F32.A Chronic insomnia 3647586 04 F51.04 Obesity 835831900 E66.9 [id number] Eren Fry MD [place] [address] 01/03/2023 12:27:26 01/03/2023 13:54:15 Abscess of labia 474766714 N76.4 Rt labia Nausea 111471123 R11.0 Alcohol dependence 75150 003 F10.20 [id number] Eren Fry MD [place] [address] 01/15/2023 16:20:49 01/15/2023 17:06:48 Anxiety disorder 241289593 F41.9 Depressive disorder 8 7 F32.A Chronic insomnia 8973878 04 F51.04 Alcohol dependence 68622 003 F10.20 Obesity 804223310 E66.9 [id number] Eren Fry MD [place] [address] 06/06/2023 15:02:51 06/06/2023 15:38:59 Alcohol dependence 78940029 F10.20 Anxiety disorder 06 F41.9 Depressive disorder 3548 7 F32.A Chronic insomnia 1580454 04 F51.04 Obesity 409053636 E66.9 Seasonal a llergic rhinitis 652514022 J30.2 [id number] Eren Fry MD [place] [address] 07/02/2023 16:52:42 07/02/2023 17:39:54 Alcohol dependence 79162780 F10.20 Depressive disorder 3548 7 F32.A Anxiety disorder 3798887 06 F41.9 Chronic insomnia 0535892 04 F51.04 Obesity 446165148 E66.9 Seasonal a llergic rhinitis 599686786 J30.2 [id number] Eren Fry MD [place] [address] 08/01/2023 10:50:50 08/01/2023 11:23:18 Adult health examination 892843895 Z00.00 Obesity 203346712 E66.9 Alcohol dependence 17040 003 F10.20 Irritable bowel syndrome with diarrhea 815462118 K58.0 Screening for disorder 851216471 Z13.9 Impacted c erumen of bilateral ears 2120936246 208659 H61.23 [id number] Eren Fry MD [address] [address] 09/10/2023 14:49:49 09/10/2023 15:27:44 Alcohol dependence 69283228 F10.20 Depressive disorder 3548 9007 F32.A Anxiety disorder 8480486 06 F41.9 Chronic insomnia 9913674 04 F51.04 Impacted c erumen of bilateral ears 8943262596 597615 H61.23 [id number] Eren Fry MD [place] [address] 09/26/2023 14:50:04 09/26/2023 15:43:12 Depressive disorder 46841894 F32.A Follow up in 6 weeks [id number] Eren Fry MD [address] [address] 10/17/2023 11:29:08 10/17/2023 11:56:05 Obesity 686875969 E66.9 Drug of abuse screen 897 89192 Z02.83 [id number] Eren Fry MD [address] [address] 03/10/2024 09:25:33 03/10/2024 09:52:39 Labial cyst 586427106 N90.7 Obesity 161509738 E66.9 Insomnia 183458171 G47.0 0 [id number] Eren Fry MD [address] [address] 04/29/2024 15:43:13 04/29/2024 16:38:29 Mixed anxiety and depressive disorder 476930057 F41.8 wellbutrin offered, patient declined due to previous negative reaction [id number] Eren Fry MD [address] [address] 07/09/2024 15:58:42 07/09/2024 16:41:08 Lumbago with sciatica 663432117 M54.40 Recommende d ibuprofen and tylenol for pain and inflammati onIs taking Tramadol, advised not to take Tramadol with ibuprofen. Take sparingly. Pt states severe pain, cannot walk or complete a work shift [id number] Eren Fry MD [address] [address] 07/24/2024 15:29:04 07/24/2024 16:17:46 Lumbar spondylosis 329435183 M47.[address] on 07/11/24Pai n is unmanageab le, struggling with daily life.Is taking 1/2 tab of hydrocodon e 5/325 mg Lumbago with sciatica 20 6623453 M54.40 Recommende d ibuprofen and tylenol for pain and inflammati onWas not able to pick-up tramadolPt states severe pain, cannot walk or complete a work shiftHas gone to PT, found this to worsen painLast hydrocodon e at 1 am today, is taking 5/325 1/2 tabs twice dailyTakes diclofenac when working [id number] GAIL Prakash [address] [address] 11/07/2024 14:29:58 11/11/2024 10:35:24 Rectal fistula 44012159 K60.419 Surgical correction scheduled for 11/20/24She is unable to work not due to drainage, pain, infection Obesity 388365895 E66.9 Managed with diet, exercise phentermin e Health Concerns Section Related Observation LastModified by Organization Detai ls LastModified Time None Recorded Concern Status LastModified by Organization Details LastModified Time None Recorded Advance Directives Directive N: Payers Insurance Date Sequence Insurance Name Policy Number Policy Marquez Covered Member ID Marquez Member ID Guarantor Name 12/09/2024 1 [facility] (MEDICAID HMO) [id number] Shruthi Evans [id number] Shruthi Fagannton Notes Date Note Type Note Provider Name and Address Organization Details Recorded Time 03/10/2024 text/html Shruthi Slater is a 43 year old female patient here today with concerns of a cyst She has had this cyst for 3 months. She had a surgery in the hospital, then she saw Dr. Ramires at [facility] and has had a cyst drained twice in the office. She states this cyst is continuously draining with green purulent drainage. She has taken Augmentin with no relief. Advised to FU with surgeon again. Abx given GAIL Praksah [address], [place], [address], [employer] 03/10/2024 09:50:35 04/29/2024 text/html Shruthi Faganntjw roque s a 43 year old female patient here today to FU on medications.Receive d Vivitrol yesterday at [facility] that [...] since her last visit. GAIL Prakash [address], [place], [address], [employer] 04/29/2024 16:29:21 07/09/2024 text/html Shruthi Evans i s a 43 year old female patient here today for pain. Concerns with pain in sacral area. Does note that the day before she the pain began she fell flat on her bottom.She has concerns this is a kidney infection. UA clean. GAIL Prakash [address], [address], [place], [address], [employer] [facility] 07/09/2024 16:56:58 07/24/2024 text/html Shruthi Evans i [...] to increase pain. GAIL Prakash [address], [address], [place], [address], [employer] [facility] [employer] 07/24/2024 16:13:19 11/07/2024 text/html Shruthi Evans i s a 43 year old female patient here today for a 3 month FU She has a rectal fistula, this is causing issues with work as it continue to rupture, cause pain, and febrile symptoms. She does have a surgery scheduled for 11/20/24. She will need time off of work until this surgery. She is taking phentermine for weight loss. She finds this effective. She has had a plateau with weight loss recently. GAIL Prakash [address], [address], [place], [address], [employer] [facility] [employer] 11/07/2024 15:03:31 OBGyn Episode No OBEpisode recorded.
--- OUTSIDE RECORDS SUMMARY | 2025-01-01 15:27 | XMS_ITS | Data Portability ---
Author Organization [facility], [place] Address [address] [place] [address] Care Team Providers Care Gum Rolling Machine Tender Name Role Phone JANETTE PIERCE Primary Care [...] this patient s visit, including available hand general handling supervisor upon arrive, temperature check and being asked [...] hormone panel, serum or plasma 2020 021 [facility] (Lab), [address], [place], [address], 1 22:04:01 prolactin, serum 2020 021 [facility] (Lab), [address], [place], [address], 22:04:00 TSH, serum or plasma 2020 021 [facility] (Lab), [address], [place], [address], 22:03:59 CBC w/ auto diff 2020 [facility] (Lab), [address], [place], [address], 22:03:58 CMP, serum or plasma 2020 [facility] (Lab), [address], [place], [address], 22:03:59 HbA1c (hemoglobi n A1c), blood 2020 [facility] (Lab), [address], [place], [address], 22:04:01 testostero ne, total, serum 2020 [facility] (Lab), [address], [place], [address], 22:04:02 vitamin D, 25-hydroxy , total, serum 2020 [facility] (Lab), [address], [place], [address], 22:04:00 Referral None recorded. Procedures None recorded. Surgeries None recorded. Imaging US, pelvis, complete 2020 [place], [facility] [address], [place], [address], 2 12:12:05 Medication Orders None recorded. Patient TargetsNo targets recorded. Patient InstructionsNo instructions recorded. Reason for Referral None Reported. Results Created Date Observation Date Name Description Value Unit Range Abnormal Flag Note LastModifiedBy Organization Detail LastModifiedTime 02/08/20 21 02/07/2021 CBC W/DIF F WBC 10.4 10'3/ uL 3.6-10 .2 high Not Available [facility] (Lab) [address], [place], [address], 02/10/2021 22:03:58 02/08/20 21 02/07/2021 CBC W/DIF F RBC 4.30 10'6/ uL (based on docume nted legal sex) 4.10-5 .30 Not Available [facility] (Lab) [address], [place], [address], 02/10/2021 22:03:58 02/08/20 21 02/07/2021 CBC W/DIF F HGB 14.3 g/dL (based on docume nted legal sex) 11.9-1 5.8 Not Available [facility] (Lab) [address], [place], [address], 02/10/2021 22:03:58 02/08/20 21 02/07/2021 CBC W/DIF F HCT 43.8 % (based on docume nted legal sex) 37.4-4 8.3 Not Available [facility] (Lab) [address], [place], [address], 02/10/2021 22:03:58 02/08/20 21 02/07/2021 CBC W/DIF F MCV 103.0 fL 82.0-9 9.0 high Not Available [facility] (Lab) [address], [place], [address], 02/10/2021 22:03:58 02/08/20 21 02/07/2021 CBC W/DIF F MCH 34.0 pg 27.0-3 3.0 high Not Available [facility] (Lab) [address], [place], [address], 02/10/2021 22:03:58 02/08/20 21 02/07/2021 CBC W/DIF F MCHC 33.0 g/dL 32.0-3 6.0 Not Available [facility] (Lab) [address], [place], [address], 02/10/2021 22:03:58 02/08/20 21 02/07/2021 CBC W/DIF F RDW 12.0 % 11.0-1 5.0 Not Available [facility] (Lab) [address], [place], [address], 02/10/2021 22:03:58 02/08/20 21 02/07/2021 CBC W/DIF F plt 265 10'3/ uL 150-45 0 Not Available [facility] (Lab) [address], [place], [address], 02/10/2021 22:03:58 02/08/20 21 02/07/2021 CBC W/DIF F MPV 10.6 fL 9.8-12 .7 Not Available [facility] (Lab) [address], [place], [address], 02/10/2021 22:03:58 02/08/20 21 02/07/2021 CBC W/DIF F NRBC's 0.00 % 0 Not Available [facility] (Lab) [address], [place], [address], 02/10/2021 22:03:58 02/08/20 21 02/07/2021 CBC W/DIF F absolute NRBCs 0.0 10'3/ uL 0 Not Available [facility] (Lab) [address], [place], [address], 02/10/2021 22:03:58 02/08/20 21 02/07/2021 CBC W/DIF F neutrophils 74.0 % 37.0-7 2.0 high Not Available [facility] (Lab) [address] [place], [address], 02/10/2021 22:03:58 02/08/20 21 02/07/2021 CBC W/DIF F lymphocytes 16.0 % 16.0-4 8.0 Not Available [facility] (Lab) [address], [place], [address], 02/10/2021 22:03:58 02/08/20 21 02/07/2021 CBC W/DIF F monocytes 7.0 % 4.0-14 .0 Not Available [facility] (Lab) [address], [place], [address], 02/10/2021 22:03:58 02/08/20 21 02/07/2021 CBC W/DIF F eosinophils 2.0 % 0.0-9. 0 Not Available [facility] (Lab) [address], [place], [address], 02/10/2021 22:03:58 02/08/20 21 02/07/2021 CBC W/DIF F basophils 1.0 % 0.0-2. 0 Not Available [facility] (Lab) [address], [place], [address], 02/10/2021 22:03:58 02/08/20 21 02/07/2021 CBC W/DIF F immature granulocytes 0.0 % no define d refere nce range Not Available [facility] (Lab) [address], [place], [address], 02/10/2021 22:03:58 02/08/20 21 02/07/2021 CBC W/DIF F absolute neutrophils 7.7 10'3/ uL 1.1-6. 0 high Not Available [facility] (Lab) [address], [place], [address], 02/10/2021 22:03:58 02/08/20 21 02/07/2021 CBC W/DIF F absolute lymphocytes 1.7 10'3/ uL 0.7-3. 4 Not Available [facility] (Lab) [address], [place], [address], 02/10/2021 22:03:58 02/08/20 21 02/07/2021 CBC W/DIF F absolute monocytes 0.7 10'3/ uL 0.3-1. 0 Not Available [facility] (Lab) [address], [place], [address], 02/10/2021 22:03:58 02/08/20 21 02/07/2021 CBC W/DIF F absolute eosinophils 0.3 10'3/ uL 0.0-0. 6 Not Available [facility] (Lab) [address], [place], [address], 02/10/2021 22:03:58 02/08/20 21 02/07/2021 CBC W/DIF F absolute basophils 0.1 10'3/ uL 0.0-0. 1 Not Available [facility] (Lab) [address], [place], [address], 02/10/2021 22:03:58 02/08/20 21 02/07/2021 CBC W/DIF [...] resul ts are expec jordan. Not Available [facility] (Lab) [address], [place], [address], 02/10/2021 22:03:58 02/08/20 21 02/07/2021 CMP WITH BUN/C REAT RATIO sodium 136 mmol/ L 136-14 5 Not Available [facility] (Lab) [address] [place], [address], 02/10/2021 22:03:59 02/08/20 21 02/07/2021 CMP WITH BUN/C REAT RATIO potassium 3.9 mmol/ L 3.5-5. 1 Not Available [facility] (Lab) [address], [place], [address], 02/10/2021 22:03:59 02/08/20 21 02/07/2021 CMP WITH BUN/C REAT RATIO chloride 102 mmol/ L 98-107 Not Available [facility] (Lab) [address], [place], [address], 02/10/2021 22:03:59 02/08/20 21 02/07/2021 CMP WITH BUN/C REAT RATIO carbon dioxide 28 mmol/ L 21-31 Not Available [facility] (Lab) [address], [place], [address], 02/10/2021 22:03:59 02/08/20 21 02/07/2021 CMP WITH BUN/C REAT RATIO anion gap 6 mmol/ L 4-13 Not Available [facility] (Lab) [address], [place], [address], 02/10/2021 22:03:59 02/08/20 21 02/07/2021 CMP WITH BUN/C REAT RATIO blood urea nitrogen 10 mg/dL 7-25 Not Available [facility] (Lab) [address], [place], [address], 02/10/2021 22:03:59 02/08/20 21 02/07/2021 CMP WITH BUN/C REAT RATIO creatinine 0.70 mg/dL 0.60-1 .30 Not Available [facility] (Lab) [address], [place], [address], 02/10/2021 22:03:59 02/08/20 21 02/07/2021 CMP WITH BUN/C REAT RATIO BUN/creatini ne ratio 14.3 . 10.0-2 2.0 Not Available [facility] (Lab) [address], [place], [address], 02/10/2021 22:03:59 02/08/20 21 02/07/2021 CMP WITH BUN/C REAT RATIO GFR () 113 mL/mi n/1.7 3_m2 60-300 Not Available [facility] (Lab) [address], [place], [address], 02/10/2021 22:03:59 02/08/20 21 02/07/2021 CMP WITH BUN/C REAT RATIO GFR (others) 93 mL/mi n/1.7 3_m2 60-300 Not Available [facility] (Lab) [address], [place], [address], 02/10/2021 22:03:59 02/08/20 21 02/07/2021 CMP WITH BUN/C REAT RATIO calcium 9.5 mg/dL 8.6-10 .2 Not Available [facility] (Lab) [address], [place], [address], 02/10/2021 22:03:59 02/08/20 21 02/07/2021 CMP WITH BUN/C REAT RATIO glucose 83 mg/dL 70-100 Not Available [facility] (Lab) [address], [place], [address], 02/10/2021 22:03:59 02/08/20 21 02/07/2021 CMP WITH BUN/C REAT RATIO protein, total 6.7 g/dL 6.4-8. 3 Not Available [facility] (Lab) [address], [place], [address], 02/10/2021 22:03:59 02/08/20 21 02/07/2021 CMP WITH BUN/C REAT RATIO albumin 4.0 g/dL 3.5-5. 0 Not Available [facility] (Lab) [address], [place], [address], 02/10/2021 22:03:59 02/08/20 21 02/07/2021 CMP WITH BUN/C REAT RATIO ALT 17 units /L 9-43 Not Available [facility] (Lab) [address], [place], [address], 02/10/2021 22:03:59 02/08/20 21 02/07/2021 CMP WITH BUN/C REAT RATIO alkaline phosphatase 50 units /L 34-104 Not Available [facility] (Lab) [address], [place], [address], 02/10/2021 22:03:59 02/08/20 21 02/07/2021 CMP WITH BUN/C REAT RATIO AST 15 units /L 13-39 Not Available [facility] (Lab) [address], [place], [address], 02/10/2021 22:03:59 02/08/20 21 02/07/2021 CMP WITH [...] will be imple mente d. Not Available [facility] (Lab) [address], [place], [address], 02/10/2021 22:03:59 02/08/20 21 02/07/2021 TSH, REFLE X FREE T4 TSH 1.47 uIU/m L 0.30-5 .33 Not Available [facility] (Lab) [address], [place], [address], 02/10/2021 22:03:59 02/08/20 21 02/07/2021 VITAM IN D, 25-OH (TOTA L D2/D3 ) vitamin D, 25-hydroxy, total 44.1 NG/mL 30-80 NOTE: Defic iency : <20 ng/mL Insuf ficie ncy: 20-29 ng/mL Optim um Level : 30-80 ng/mL Possi ble Toxic ity: >80 ng/mL Most patie nts with toxic ity have level s >150 ng/mL . Not Available [facility] (Lab) [address], [place], [address], 02/10/2021 22:04:00 02/08/20 21 02/07/2021 PROLA CTIN prolactin, total 15.00 NG/mL 4.79-2 3.30 This assay was perfo rmed using [employer] ratio n reage nts and test kits. Value s obtai jac with other assay metho ds or kits canno t be used inter [facility] . Not Available [facility] (Lab) [address], [place], [address], 02/10/2021 22:04:00 02/08/20 21 02/07/2021 FSH, LH, ESTRA DIOL estradiol 44.8 pg/mL This assay was perfo rmed using [employer] reage nts and test kits. Value s obtai jac with other assay metho ds or kits canno t be used inter [facility] . Femal e Estra diol Range s: Folli cular phase 12.4- 233 pg/mL Ovula tion phase 41.0- 398 pg/mL Lutea l phase 22.3- 341 pg/mL Postm enopa usal< 5-138 pg/mL Healt hy Pregn ant Women 1st Trime ster1 54-32 43 pg/mL 2nd Trime ster1 561-2 1280 pg/mL 3rd Trime ster8 525-> 48635 pg/mL Not Available [facility] (Lab) [address], [place], [address], 02/10/2021 22:04:01 02/08/20 21 02/07/2021 FSH, LH, ESTRA DIOL FSH 9.3 mIU/m L This assay was perfo rmed using [employer] reage nts and test kits. Value s obtai jac with other assay metho ds or kits canno t be used inter [facility] . Femal es Folli cular : 3.5-1 2.5 mIU/m L Ovula tion: 4.7-2 1.5 mIU/m L Lutea l: 1.7-7 .7 mIU/m L Postm enopa use: 25.8- 134.8 mIU/m L Not Available [facility] (Lab) [address], [place], [address], 02/10/2021 22:04:01 02/08/20 21 02/07/2021 FSH, LH, [...] use: 7.7-5 8.5 mIU/m L Not Available [facility] (Lab) [address], [place], [address], 02/10/2021 22:04:01 02/08/20 21 02/07/2021 HEMOG LOBIN [...] >8.0% Actio n sugge sted Not Available [facility] (Lab) [address], [place], [address], 02/10/2021 22:04:01 02/08/20 21 02/07/2021 TESTO STERO NE, TOTAL , LC/MS /MS testosterone , total 25 NG/dL 2-45 For addit ional infor twan peterson e refer to http: //[facility] julián mullinsque stdia gnost ics.c om/fa q/Tot al Testo stero neLCM SMS (This link is being provi ded for infor matjeffrey nal/e ducat ional purpo ses only. ) This test was devel oped and its marycarmen tical perfo rmanc e setphen cteri stics have been deter mined by [employer]. It has not been clear ed or appro luis eduardo by the FDA. This assay has been valid ated pursu ant to the CLIA regul ation s and is used for clini jaguar purpo ses. Perfo rming Organ izati on Em scoutjeffrey mata: Site ID: [id number] Name: [employer]-Mani allen [address] Addre ss: [id number] [place] [address] Dire tor: Trent yi M.D. Not Available [facility] (Lab) [address], [place], [address], 02/10/2021 22:04:01 Result Notes None recorded. Procedures Surgical History Date Name Laterality Status Provider Name and Address Organization Details Recorded Time section completed [facility] 02/07/2021 14:12:04 Imaging Results None recorded. [...] Available No t Available Vitals Date Recorded Systolic And Diastolic Provider Name and Address Organization Details Last Updated DateTime 02/07/2021 124/80 mm[Hg] Amanda Falcon, [facility]- [address], [place], [address], [facility] 02/07/2021 14:16:57 Date Recorded Body height Body mass index (BMI) Body weight Provider Name and Address Organization Details Last Updated DateTime 02/07/2021 155.58 cm 31.9 kg/m2 89991.7 g Brittany Gonzalez [facility] 02/07/2021 14:07:40 Social History Question Answer Notes LastModified by Organizat ion Details LastModified Time Tobacco Smoking Status Never Smoker Brittany Gonzalez [facility], [facility] 02/07/2021 14:11:38 Are You Blind Or Do You Have [...] Yes Information not available 02/07/2021 Do You Use Sunscreen Routinely? Yes Information not available 02/07/2021 Sex: Unknown Functional Status Question Answer Note LastModified by Organizat ion Details LastModified Time Do you use any illicit or recreational drugs? No Information not available 02/07/2021 What is your level of alcohol consumption? None Information not available 02/07/2021 Are you able to walk? YESWOREST Information not available 02/07/2021 What is your exercise level? Occasional Information not available 02/07/2021 Mental Status Question Answer Note LastModified by Organization D etails LastModified Time Do you feel stressed (tense, restless, nervous, or anxious, or unable to sleep at night)? [id number] Information not available 02/07/2021 Family History Relationship Description Onset Age of [...] Not available 2020 14:10:55 Maternal Uncle Malignant neoplasm of lung Not available 2020 14:11:16 Medical [...] SNOMED-CT Code Diagnosis ICD10 Code Diagnosis Note [id number] [facility] [address] [address] 02/07/2021 13:51:48 02/07/2021 14:38:38 Menopausal symptom [id number] N95.1 Today we decided to update labs to ensure no other issues.David vincent schedule WWE & f/u to discuss options for HRT/Non-HR T menopause sx's as long as results indicate this is the issue for her sx's. WWE with f/u to be scheduled. Rec book: The menopause manifesto by Dr. Zandra Salazar Irregular periods [id number] N92.6 LIkely cycle changes are perimenopa use/menopa use.Rabia r, we will update US to ensure no other issues since this is a change from her historical ly normal cycle. Health Concerns Section Related Observation LastModified by Organization Detai ls LastModified Time None Recorded Concern Status LastModified by Organization Details LastModified Time None Recorded Advance Directives Directive None Recorded Payers Insurance Date Sequence Insurance Name Policy Number Policy Marquez Covered Member ID Marquez Member ID Guarantor Name 03/05/2021 1 [facility] (MEDICAID HMO) [id number] Shruthi Evans [id number] Shruthi Evans Notes Date Note Type Note [...] sleep Prozac for anxiety) Amanda Falcon, KATHY- [address], [place], [address], [place] [facility] 02/07/2021 14:37:56 OBGyn Episode Ob Episode Information Episode Created Date Number of Fetuses Patient Bloodtype Patient rh Status Prepregnancy Weight lbs Domestic Partner Domestic Partner Phone Father Name Stretching Machine Tender Frame Status 02/08/20 21 1 CLOSED Fetus Data First Name Last Name Admitted to NICU Weight (g) Sex Living Outcome Pediatric Complications Fetus ID Race Codes Race Delivery Type 3316.66 4704 M Full Term [id number] Primary Omid Calculation Initial Omid Date Initial [...]
--- OUTSIDE RECORDS SUMMARY | 2025-01-01 15:27 | XMS_ITS | Clinical Summary ---
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 Up Operator Name Role Phone Awilda Ramires MD Unavailable [phone] Eren Fry MD Primary Care Provider [phone] Lui Oliva MD Unavailable [phone] Allergies No known active allergies Medications traZODone (DESYREL) 50 mg tabletIndicatio ns:insomnia associated with depression Take 1 tablet (50 mg total) by mouth nightly Active Active Problems Problem Noted Date Diagnosed Date Alcohol withdrawal syndrome without complication 11/27/2024 Anal fistula 10/31/2024 Chronic systolic heart failure 11/08/2013 Overview (09/27/2016): CHR SYSTOLIC HRT FAILURE 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 Overview (09/29/2016): SECOND CARDIOMYOPATH NOS Hypertension 11/08/2013 Overview (09/29/2016): HYPERTENSION NOS Encounters Date Type Department Care Team Description 11/28/2024 AM[facility] Enrollment [facility] Warm Hand Off Program [address] [place], [place] [phone] Sheela Sparks 11/27/2024 9:49 AM CDT - 11/29/2024 9:01 AM CDT Hospital Encounter [facility] Medical Care 1 [place] [address] Zozula, MD Cherie Ramirez Ekanga Sunday, MD [place], Victoria Rose, Alcohol withdrawal syndrome without complication (HCC) (Primary Dx); Alcoholic ketoacidosis; Elevated lactic acid level; Elevated blood sugar; Colitis Discharge Disposition: Left Against Medical Advice 11/27/2024 Documentation [facility] [address] [place], [place] [phone] Sheela Sparks 11/24/[address] [facility] Floor 5 [place] [phone] Morelia Garza, BS Cancel (11/24/24 surgery ) 11/21/[address] [facility] [address] [place] [address] Floor 5 [place] [address] Kaylin Briceño RMA 11/20/[address] [facility] [address] [place] [address] 5 [place] [phone] Shanon Blount, RMA Procedure 11/19/[address] [facility] [address] [place] [address] Floor 5 [place] [phone] Shanon Blount, RMA Surgery Confirmation 11/04/2024 11:59 PM CDT Anesthesia Event [facility] Operating Room [id number] [place] [address] [place] [address] Mohan Durand NP 11/04/2024 9:39 AM CDT - 11/04/2024 11:59 PM CDT Hospital Encounter [facility] [address] [place] [phone] Discharge Disposition: Discharge to home or self care 11/04/2024 8:52 AM CDT - 11/04/2024 11:59 PM CDT Hospital Encounter [facility] [address] [place] [address] Discharge Disposition: Discharge to home or self care 11/04/2024 8:50 AM CDT - 11/04/2024 11:59 PM CDT Hospital Encounter [facility] [address] [place] [address] [place] [address] Discharge Disposition: Discharge to home or self care 11/04/2024 8:49 AM CDT - 11/04/2024 11:59 PM CDT Hospital Encounter [facility] [address] [place] [address] Discharge Disposition: Discharge to home or self care 11/04/[address] [facility] [address] [facility] Medical Office Building [address] [place] [phone] Jennifer Angel RN 11/04/2024 Orders Only [facility] [address] [facility] Floor 5 [place] [phone] Robert Martinez MD 10/31/2024 3:00 PM CDT Office Visit [facility] [address] [facility] 2nd Floor [address] [place] [address] Lui Oliva MD Anal fistula (Primary Dx); Fistula from Last 3 Months Surgical History Surgery Date Site/Laterality Comments CYST REMOVAL 05/25/2023 - 06/24/2023 rectal CYST REMOVAL 11/23/2022 - 12/22/2022 rectal SECTION 06/25/2008 - 06/24/2009 Medical History Medical History Date Comments Anal fistula 10/31/2024 Chronic systolic heart failure (HCC) 11/08/2013 CHR SYSTOLIC HRT FAILURE Hypertension 11/08/2013 HYPERTENSION NOS Secondary cardiomyopathy (HCC) 11/08/2013 S ECOND CARDIOMYOPATH NOS Family History Medical History Relation Name Comments Anesthesia problems Neg Hx Social History Tobacco Use Types Packs/Day Years Used Date Smoking Tobacco: Never Passive Smoke Exposure: Past Smokeless Tobacco: Never Tobacco Cessation:Counseling Given: Not Answered [facility] Utilities Answer Date Recorded In the past 12 months has [employer], gas, oil, or water company threatened to shut off services in your home? No 11/28/2024 Social Connection and Isolat ion Panel [NHANES] Answer Date Recorded In a typical week, how many times do you talk on the phone with family, friends, or neighbors? More than three times a week 11/28/2024 How often do you get togethe r with friends or relatives? Once a week 11/28/2024 How often do you attend chur ch or congregation services? Never 11/28/2024 Do you belong to any clubs o r organizations such as temple groups, unions, fraternal or athletic groups, or school groups? No 11/28/2024 How often do you attend meet ings of the clubs or organizations you belong to? Never 11/28/2024 Are you , , di vorced, , never , or living with a partner? Never 11/28/2024 AUDIT-C Answer Date Recorded Q1: How often do you have a drink containing alcohol? Patient declined 11/03/2024 Q2: How many drinks containi ng alcohol do you have on a typical day when you are drinking? Patient does not drink Q3: How often do you have si x or more drinks on one occasion? Never 11/03/2024 Overall Financial Resource Strain (CARDIA) Answe r Date Recorded How hard is it for you to pa y for the very basics like food, housing, medical care, and heating? Somewhat hard 11/28/2024 Hunger Vital Sign Answer Date Recorded Within the past 12 months, y ou worried that your food would run out before you got the money to buy more. Never true 11/29/19 25 Within the past 12 months, t he food you bought just didn't last and you didn't have money to get more. Never true 11/28/2024 PRAPARE - Transportation Answer Date Re corded In the past 12 months, has l ack of transportation kept you from medical appointments or from getting medications? No 11/2024 In the past 12 months, has l ack of transportation kept you from meetings, work, or from getting things needed for daily living? No 11/28/2024 Housing Stability Vital Sign Answer Florentino e Recorded In the last 12 months, was t here a time when you were not able to pay the mortgage or rent on time? No 11/28/2024 In the past 12 months, how m any times have you moved where you were living? 0 11/28/2024 At any time in the past 12 m [facility], were you homeless or living in a assisted (including now)? No 11/28/2024 Personal Safety Answer Date Recorded Have you ever been in or are you currently in a harmful physical or emotional relationship or is someone making you feel afraid or unsafe? 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 Gender Identity Not on file Sexual Orientation Not on file Obstetrics History Last Filed Vital Signs Vital Sign Reading Time Taken Comments Blood Pressure 135/87 11/29/2024 2:36 AM CDT Pulse 93 11/29/2024 4:00 AM CDT Temperature 36.4 C (97.6 F) 11/29/2024 2:36 AM CDT Respiratory Rate 20 11/29/2024 2:36 AM CDT Oxygen Saturation 96% 11/29/2024 2:36 AM CDT Inhaled Oxygen Concentration - - Weight 80.5 kg (177 lb 7.5 oz) 11/27/2024 10:20 PM CDT Height 152.4 cm (5') 11/27/2024 10:20 PM CDT Body Mass Index 34.66 11/27/2024 10:20 PM CDT Plan of Treatment Upcoming Encounters Date Type Department Care Team (Latest Contact Info) Description 01/23/2025 7:30 AM CDT Hospital Encounter [facility] Surgery at [facility] [address] [place] [address] Lui Oliva MD [address] [facility] [phone] [place] [address] 01/23/2025 7:30 AM CDT - 01/23/2025 8:00 AM CDT Surgery [facility] Surgery at [facility] [address] [place] [address] Lui Oliva MD [address] [facility] [phone] [place] [address] EXAM UNDER ANESTHESIA - RECTUM Scheduled Procedures Name Priority Associated Diagnoses Date/Ti me EXAM UNDER ANESTHESIA - RECTUM Anal fistula 01/23/2025 7:30 AM CDT ANAL FISTULOTOMY Anal fistula 01/23/2025 7:30 AM CDT PLACEMENT SETON Anal fistula 01/23/2025 7:30 AM CDT Health Maintenance Due Date Last Done Comments Breast Cancer Screening-Mammogram 1981 Cervical Cancer Screening 1981 Depression Screening 1981 Hepatitis C Screening 1981 DTaP/Tdap/Td Vaccine (1 - Tdap) 1992 Varicella Vaccines (1 of 2 - 13+ 2-dose series) 1994 Hepatitis B Screening 12/28/1999 Regular Well Visit/Exam 18-64 12/28/1999 Pneumococcal vaccine <65 (1 of 2 - PCV) 2000 Covid-19 Vaccine (2 - 2023-2 5 season) 2024 12/03/2020 Influenza Vaccine (#1) 2025 HPV Vaccines Aged Out No longer eligi ble based on patient's age to complete this topic Goals Goal Patient Goal Type Associated Problems Recent Progress Patient-Stated? Author Autogenera jordan Goal Care Plan Autogenerated Problem No Yvonne Hawkins MA Procedures Procedure Name Priority Date/Time Associated Diagnosis Comments EGFR Routine 11/29/2024 5:15 AM CDT DIFFERENTIAL AUTO Routine 11/29/2024 5:1 5 AM CDT LACTATE Routine 11/29/2024 5:15 AM CDT MAGNESIUM Routine 11/29/2024 5:15 AM CDT PHOSPHORUS Routine 11/29/2024 5:15 AM CDT COMPREHENSIVE METABOLIC PANEL Routine 11/29/2024 5:15 AM CDT CBC WITH AUTO DIFFERENTIAL Routine 11/29/2024 5:15 AM CDT CTA ABDOMEN PELVIS W WO CONTRAST IP Routine 11/28/2024 9:16 PM CDT ERYTHROCYTE SEDIMENTATION RATE Add-On 11/28/2024 6:14 PM CDT SEPSIS LACTATE WITH REFLEX Routine 11/28/2024 6:14 PM CDT PROCALCITONIN Add-On 11/28/2024 9:37 AM CDT CRP (ACUTE PHASE) Add-On 11/28/2024 9:3 7 AM CDT EGFR Timed 11/28/2024 9:37 AM CDT COMPREHENSIVE METABOLIC PANEL Timed 11/28/2024 9:37 AM CDT PHOSPHORUS Timed 11/28/2024 9:37 AM CDT MAGNESIUM Timed 11/28/2024 9:37 AM CDT LACTATE Routine 11/28/2024 9:37 AM CDT EGFR Routine 11/28/2024 4:42 AM CDT DIFFERENTIAL AUTO Routine 11/28/2024 4:4 2 AM CDT MAGNESIUM Routine 11/28/2024 4:42 AM CDT COMPREHENSIVE METABOLIC PANEL Routine 11/28/2024 4:42 AM CDT CBC WITH AUTO DIFFERENTIAL Routine 11/28/2024 4:[address] CHEST PE ABDOMEN PELVIS W CONTRAST ED 11/27/2024 8:25 PM CDT SEPSIS LACTATE WITH REFLEX Timed 11/27/2024 7:28 PM CDT ETHANOL STAT 11/27/2024 6:09 PM CDT DRUGS OF ABUSE SCREEN, URINE WITHOUT CONFIRMATION STAT 11/27/2024 6:08 PM CDT SEPSIS LACTATE WITH REFLEX Timed 11/27/2024 4:32 PM CDT BLOOD CULTURE STAT 11/27/2024 2:53 PM CDT BLOOD CULTURE STAT 11/27/2024 2:53 PM CDT XR CHEST 1 VIEW ED 11/27/2024 1:58 PM CDT URINALYSIS AND REFLEX TO MICROSCOPIC AND CULTURE STAT 11/27/2024 1:25 PM CDT EGFR Timed 11/27/2024 12:58 PM CDT BASIC METABOLIC PANEL Timed 11/27/2024 12:58 PM CDT SEPSIS LACTATE WITH REFLEX Routine 11/27/2024 12:58 PM CDT HCG, BLOOD, QUANTITATIVE Add-On 11/27/2024 12:57 PM CDT BLOOD GAS, VENOUS Add-On 11/27/2024 12: 57 PM CDT POCT GLUCOSE DEVICE Routine 11/27/2024 1 1:56 AM CDT ECG 12-LEAD STAT 11/27/2024 10:17 AM CDT HEMOGLOBIN A1C Add-On 11/27/2024 9:53 AM CDT BETA-HYDROXYBUTYRATE Add-On 11/27/2024 9:53 AM CDT MANUAL DIFFERENTIAL STAT 11/27/2024 9 :53 AM CDT EGFR STAT 11/27/2024 9:53 AM CDT LIPASE Add-On 11/27/2024 9:53 AM CDT MAGNESIUM STAT 11/27/2024 9:53 AM CDT PROTIME-INR STAT 11/27/2024 9:53 AM CDT COMPREHENSIVE METABOLIC PANEL STAT 11/27/2024 9:53 AM CDT CBC WITH AUTO DIFFERENTIAL STAT 11/27/2024 9:[address] BODY OUTSIDE REFERENCE Routine 11/04/2024 9:[address] BODY OUTSIDE REFERENCE Routine 11/04/2024 8:[address] BODY OUTSIDE REFERENCE Routine 11/04/2024 8:[address] BODY OUTSIDE REFERENCE Routine 11/04/2024 8:[address] ABDOMEN PELVIS W CONTRAST Schedule Routine, Read Routine (OP Routine) 10/07/2024 8:49 AM CDT from Last 3 Months Results * Lactate (11/29/2024 5:15 AM CDT) Lactate 1.1 0.7 - 2.0 mmol/L Blood 11/29/2024 5:15 AM CDT 11/29/2024 5:19 AM CDT Gwen Max DO LAB BLOOD ORDERABLES Fin al Result Performing Organization Address City/State/[facility] Co de Phone Number [facility]) [address] [facility] [place] [address] * eGFR (11/29/2024 5:15 AM CDT) eGFR >90 >=60 mL/min/1. 73 m2 Comment: Interpretive Data Reference Interval Normal >/= 90 mL/min/1.73m2 Mildly decreased* 60 - 89 mL/min/1.73m2 Mildly to moderately decreased 45 - 59 mL/min/1.73m2 Moderately to severely decreased 30 - 44 mL/min/1.73m2 Severely decreased 15 - 29 mL/min/1.73m2 Kidney Failure < 15 mL/min/1.73m2 *Relative to young adult level Estimated glomerular filtration rate is determined by the 2020 CKD-EPI equation recommended by the National Kidney Foundation (A Unifying Approach to GFR Estimation: Recommendations of the NKF-ASK Task Force on Reassessing the Inclusion of Race in Diagnosing Kidney Disease, JASN 2020). The CKD-EPI equation should not be used for patients with unstable renal function and has not been validated in children and those over 70. Current interpretive data was last reviewed 2021. Blood 11/29/2024 5:15 AM CDT 11/29/2024 5:19 AM CDT Gwen Max DO LAB BLOOD ORDERABLES Fin al Result [facility]) [address] [facility] [place] [address] * Differential, auto (11/29/2024 5:15 AM CDT) Neutrophil abs 4.03 1.50 - 6.50 K/cumm Imm gran abs 0.03 0.00 - 0.10 K/cumm [facility]) Lymphocyte abs 2.05 0.80 - 3.30 K/cumm [facility]) Monocyte abs 0.39 0.20 - 0.80 K/cumm [facility]) Eosinophil abs 0.21 0.00 - 0.50 K/cumm [facility]) Basophil abs 0.03 0.00 - 0.10 K/cumm [facility]) Neutrophil pct 59.9 % [facility]) Comment: Interpretive Data Percent cell count reference ranges are not reported, since discordance with absolute values may lead to misinterpretation of CBC data. Current Interpretive Data was last revised on 2017. Imm gran pct 0.4 % [facility] Comment: Interpretive Data Percent cell count reference ranges are not reported, since discordance with absolute values may lead to misinterpretation of CBC data. Current Interpretive Data was last revised on 2017. Lymphocyte pct 30.4 % [facility] Comment: Interpretive Data Percent cell count reference ranges are not reported, since discordance with absolute values may lead to misinterpretation of CBC data. Current Interpretive Data was last revised on 2017. Monocyte pct 5.8 % [facility]) Comment: Interpretive Data Percent cell count reference ranges are not reported, since discordance with absolute values may lead to misinterpretation of CBC data. Current Interpretive Data was last revised on 2017. Eosinophil pct 3.1 % [facility] Comment: Interpretive Data Percent cell count reference ranges are not reported, since discordance with absolute values may lead to misinterpretation of CBC data. Current Interpretive Data was last revised on 2017. Basophil pct 0.4 % [facility]) Comment: Interpretive Data Percent cell count reference ranges are not reported, since discordance with absolute values may lead to misinterpretation of CBC data. Current Interpretive Data was last revised on 2017. Blood 11/29/2024 5:15 AM CDT 11/29/2024 5:19 AM CDT us Gwen Max DO LAB BLOOD ORDERABLES Fin al Result [facility]) [address] [facility] [place] [address] * CBC with auto differential (11/29/2024 5:15 AM CDT) WBC 6.74 3.80 - 9.90 K/cumm Hgb 14.5 11.9 - 15.5 g/dL [facility] Hct 41.3 35.6 - 45.5 % [facility] Plt 153 150 - 400 K/cumm [facility]) MPV 10.1 9.1 - 12.3 fL [facility] RBC 4.35 3.90 - 5.20 M/cumm [facility]) MCV 94.9 81.3 - 96.4 fL [facility] MCH 33.3 27.1 - 33.3 pg [facility]) MCHC 35.1 32.3 - 35.7 g/dL [facility] RDW CV 12.8 11.1 - 14.9 % [facility] RDW SD 44.2 35.7 - 48.1 fL [facility] NRBC abs 0.00 0.00 - 0.01 K/cumm [facility] Blood 11/29/2024 5:15 AM CDT 11/29/2024 5:19 AM CDT Gwen Max DO LAB BLOOD ORDERABLES Fin al Result [facility] ([facility]) 1 [facility] [place] [address] * Phosphorus (11/29/2024 5:15 AM CDT) Phosphorus, pl 3.3 2.3 - 4.5 mg/dL Blood 11/29/2024 5:15 AM CDT 11/29/2024 5:19 AM CDT Gwen Max DO LAB BLOOD ORDERABLES Fin al Result Performing Organization Address City/[facility]/ZIP Co de Phone Number [facility] ([place]) 1 [facility] [place] [address] * Magnesium (11/29/2024 5:15 AM CDT) Magnesium 1.8 1.4 - 2.5 mg/dL Blood 11/29/2024 5:15 AM CDT 11/29/2024 5:19 AM CDT Gwen Max DO LAB BLOOD ORDERABLES Fin al Result [facility] ([place]) 1 [facility] [place] [address] * (ABNORMAL) Comprehensive metabolic panel (11/29/2024 5:15 AM CDT) Sodium 136 135 - 145 mmol/L Potassium, pl 3.9 3.3 - 4.9 mmol/L [facility] Chloride 100 97 - 110 mmol/L [facility] CO2 27 22 - 32 mmol/L [facility] Anion gap 10 2 - 15 mmol/L [facility] BUN 6 6 - 25 mg/dL [facility] Creatinine 0.57(L) 0.60 - 1.10 mg/dL [facility] Glucose 111 70 - 199 mg/dL [facility] Comment: Interpretive Data Fasting glucose >/= 126 mg/dl is diagnostic for diabetes. Fasting is defined as no caloric intake for at least 8 hours. Fasting glucose between 100 mg/dl to 125 mg/dl is diagnostic of prediabetes. In a patient with classic symptoms of hyperglycemia or hyperglycemic crisis, a random glucose >/= 200 mg/dl is diagnostic for diabetes. In the absence of unequivocal hyperglycemia, results should be confirmed by repeat testing. The classification and Diagnosis of Diabetes Diabetes Care 202; 46: S19-S40. Current interpretive data was last revised 2022. Calcium 8.3(L) 8.5 - 10.3 mg/dL [facility] Bilirubin, total 0.4 0.1 - 1.2 mg/dL [facility]) Protein, pl 6.3(L) 6.5 - 8.5 g/dL [facility]) Albumin 3.3(L) 3.5 - 5.0 g/dL [facility] Alk phos 60 40 - 130 Units/L [facility] ALT 24 7 - 45 Units/L [facility] AST 25 10 - 45 Units/L [facility] Blood 11/29/2024 5:15 AM CDT 11/29/2024 5:19 AM CDT us Gwen Max DO LAB BLOOD ORDERABLES Fin al Result [facility]) [address] [facility] [place] [address] * CTA Abdomen Pelvis (11/28/2024 9:16 PM CDT) Anatomical Region Laterality Modality Body N/A Computed Tomogra phy 11/29/2024 2:32 PM CDT Narrative 11/29/2024 2:37 PM CDT EXAM DESCRIPTION: CTA ABDOMEN PELVIS REASON FOR STUDY: Acute mesenteric ischemia. No provided history of trauma or inciting and/or aggravating events. No provided past medical or surgical history. TECHNIQUE: CTA scan of the abdomen and pelvis performed without and with intravenous and without oral contrast using helical scanning technique with dynamic intravenous contrast injection. Precontrast, arterial, and portal venous phase images of the abdomen and pelvis were acquired. Images reviewed with lung, soft tissue and bone windows. Reconstructed coronal and sagittal MPR images reviewed. All images stored on PACS. 3D MIP images rendered on scanning unit and reviewed at time of interpretation. Automated exposure control was used as a dose optimization technique for this examination. CONTRAST TYPE/DOSE: 100 mL Optiray 350 injected via peripheral IV site without reported incident. COMPARISON: Relevant portions of CT chest/abdomen/pelvis with contrast 11/27/2024 FINDINGS: VASCULATURE: No dissection, aneurysm, intramural hematoma, rupture, or penetrating atherosclerotic ulcer. No large vessel occlusion. CELIAC TRUNK: No flow limiting stenosis, dissection, or aneurysm. SUPERIOR MESENTERIC ARTERY: No flow limiting stenosis, dissection, or aneurysm. RIGHT RENAL ARTERY: No flow limiting stenosis, dissection, or aneurysm. LEFT RENAL ARTERY: No flow limiting stenosis, dissection, or aneurysm. INFERIOR MESENTERIC ARTERY: No flow limiting stenosis, dissection, or aneurysm. AORTA: No flow limiting stenosis, dissection, or aneurysm. ILIAC ARTERIES: No flow limiting stenosis, dissection, or aneurysm. LOWER CHEST: No acute abnormality. LIVER: Redemonstration of hepatic steatosis. GALLBLADDER: Unremarkable. BILE DUCTS: No intrahepatic or extrahepatic ductal dilatation. SPLEEN: Unremarkable. PANCREAS: Unremarkable. ADRENALS: Unremarkable. KIDNEYS/URINARY TRACT: Symmetric enhancement. No CT evidence of discrete renal lesion. No nephrolithiasis or ureterolithiasis. No hydronephrosis or hydroureter. Unopacified urinary bladder unremarkable. GI: Compatible with as detailed on abdominopelvic CT imaging 1 day prior. No significant diverticular disease. No dilated bowel loops. No dilated bowel loops. No obvious wall thickening. Normal appendix. PERITONEUM: No pneumoperitoneum. No abdominopelvic free fluid. RETROPERITONEUM: No mass or adenopathy. REPRODUCTIVE: Redemonstration of 3 cm AP simple fluid attenuation left adnexal cyst. MUSCULOSKELETAL: No acute abnormality. OTHER: No other abnormality. IMPRESSION: Abdominopelvic CT angiographic evaluation as detailed above. THIS IS AN ELECTRONICALLY VERIFIED FINAL REPORT 11/29/2024 2:37 PM - Electronically signed by Parmjit Flor M.D. REBEKAH: REBEKAH Report ID: [id number] Reading Location: [id number] Procedure Note Parmjit Flor MD - 11/29/2024 EXAM DESCRIPTION: CTA ABDOMEN PELVIS REASON FOR STUDY: Acute mesenteric ischemia. No provided history oftrauma or inciting and/or aggravating events. No provided past medical orsurgical history. TECHNIQUE: CTA scan of the abdomen and pelvis performed without and with intravenous and without oral contrast using helical scanning techniquewith dynamic intravenous contrast injection. Precontrast, arterial, and portal venous phase images of the abdomen and pelvis were acquired. Images reviewed with lung, soft tissue and bone windows. Reconstructed coronaland sagittal MPR images reviewed. All images stored on PACS. 3D MIP images rendered on scanning unit and reviewed at time of interpretation.Automated exposure control was used as a dose optimization technique for this examination. CONTRAST TYPE/DOSE: 100 mL Optiray 350 injected via peripheral IVsite without reported incident. COMPARISON: Relevant portions of CT chest/abdomen/pelvis with contrast 11/27/2024 FINDINGS: VASCULATURE: No dissection, aneurysm, intramural hematoma, rupture, or penetrating atherosclerotic ulcer. No large vessel occlusion. CELIAC TRUNK: No flow limiting stenosis, dissection, or aneurysm. SUPERIOR MESENTERIC ARTERY: No flow limiting stenosis, dissection, or aneurysm. RIGHT RENAL ARTERY: No flow limiting stenosis, dissection, or aneurysm. LEFT RENAL ARTERY: No flow limiting stenosis, dissection, or aneurysm. INFERIOR MESENTERIC ARTERY: No flow limiting stenosis, dissection, or aneurysm. AORTA: No flow limiting stenosis, dissection, or aneurysm. ILIAC ARTERIES: No flow limiting stenosis, dissection, or aneurysm. LOWER CHEST: No acute abnormality. LIVER: Redemonstration of hepatic steatosis. GALLBLADDER: Unremarkable. BILE DUCTS: No intrahepatic or extrahepatic ductal dilatation. SPLEEN: Unremarkable. PANCREAS: Unremarkable. ADRENALS: Unremarkable. KIDNEYS/URINARY TRACT: Symmetric enhancement. No CT evidence ofdiscrete renal lesion. No nephrolithiasis or ureterolithiasis. Nohydronephrosis or hydroureter. Unopacified urinary bladder unremarkable. GI: Compatible with as detailed on abdominopelvic CT imaging 1 day prior.No significant diverticular disease. No dilated bowel loops. No dilatedbowel loops. No obvious wall thickening. Normal appendix. PERITONEUM: No pneumoperitoneum. No abdominopelvic free fluid. RETROPERITONEUM: No mass or adenopathy. REPRODUCTIVE: Redemonstration of 3 cm AP simple fluid attenuation left adnexal cyst. MUSCULOSKELETAL: No acute abnormality. OTHER: No other abnormality. IMPRESSION: Abdominopelvic CT angiographic evaluation as detailed above. THIS IS AN ELECTRONICALLY VERIFIED FINAL REPORT 11/29/2024 2:37 PM - Electronically signed by Parmjit Flor M.D. REBEKAH: REBEKAH Report ID: [id number] Reading Location: [place] [address] Gwen Max DO IMG CT PROCEDURES Final Result * Sepsis Lactate w/ Reflex (11/28/2024 6:14 PM CDT) Pathologist [facility] Sepsis Lactate 1.8 0.7 - 2.0 mmol/L Blood 11/28/2024 6:14 PM CDT 11/28/2024 6:17 PM CDT Gwen Max DO LAB BLOOD ORDERABLES Fin al Result [facility] PEDRO [address] [facility] [place] [address] * Erythrocyte sedimentation rate (11/28/2024 6:14 PM CDT) Erythrocyte sedimentation rate 9 1 - 20 mm/hr Blood 11/28/2024 6:14 PM CDT 11/28/2024 6:17 PM CDT Gwen MackWoofound DO LAB BLOOD ORDERABLES Fin al Result Performing Organization Address City/[facility]/ZIP Co de Phone Number [facility] SPENCER) 1 [facility] [place] [address] * (ABNORMAL) Lactate (11/28/2024 9:37 AM CDT) Pathologist [facility] Lactate 4.6(C) 0.7 - 2.0 mmol/L Comment:Critical result call ed to and read back by Louisa Bryant rn ([facility]) on 11/28/2024 09:50:27 CDT to trang alberts. Blood 11/28/2024 9:37 AM CDT 11/28/2024 9:44 AM CDT Gwen James [employer] DO LAB BLOOD ORDERABLES Fin al Result Performing Organization Address [facility] Co de Phone Number [facility] (PEDRO) 1 [facility] [place] [address] * eGFR (11/28/2024 9:37 AM CDT) eGFR >90 >=60 mL/min/1. 73 m2 Comment: Interpretive Data Reference Interval Normal >/= 90 mL/min/1.73m2 Mildly decreased* 60 - 89 mL/min/1.73m2 Mildly to moderately decreased 45 - 59 mL/min/1.73m2 Moderately to severely decreased 30 - 44 mL/min/1.73m2 Severely decreased 15 - 29 mL/min/1.73m2 Kidney Failure < 15 mL/min/1.73m2 *Relative to young adult level Estimated glomerular filtration rate is determined by the 2020 CKD-EPI equation recommended by the National Kidney Foundation (A Unifying Approach to GFR Estimation: Recommendations of the NKF-ASK Task Force on Reassessing the Inclusion of Race in Diagnosing Kidney Disease, JASN 2021). The CKD-EPI equation should not be used for patients with unstable renal function and has not been validated in children and those over 70. Current interpretive data was last reviewed 2021. Blood 11/28/2024 9:37 AM CDT 11/28/2024 9:44 AM CDT Gwen Erika MartinaWoofound DO LAB BLOOD ORDERABLES Fin al Result Performing Organization Address City/[facility] Co de Phone Number [facility] T[facility] (PEDRO) 1 [facility] [place] [address] * Procalcitonin (11/28/2024 9:37 AM CDT) Procalcitonin <0.05 <=0.25 ng/mL Comment:Testing performed by : [facility] [place], [place]., [address] Blood 11/28/2024 9:37 AM CDT 11/29/2024 2:25 PM CDT Gwen Erika [employer] DO LAB BLOOD ORDERABLES Fin al Result Performing Organization Address City/[facility] Co de Phone Number [facility] TRE[facility]INO (PEDRO) 1 [facility] [place] [address] * CRP (acute phase) (11/28/2024 9:37 AM CDT) CRP 6.9 <=10.0 mg/L Blood 11/28/2024 9:37 AM CDT 11/28/2024 4:35 PM CDT Gwen James [employer] DO LAB BLOOD ORDERABLES Fin al Result Performing Organization Address City/[facility] Co de Phone Number [facility] (PEDRO) 1 [facility] [place] [address] * (ABNORMAL) Phosphorus (11/28/2024 9:37 AM CDT) Phosphorus, pl 1.7(L) 2.3 - 4.5 mg/dL Blood 11/28/2024 9:37 AM CDT 11/28/2024 9:44 AM CDT Gwen MackWoofound DO LAB BLOOD ORDERABLES Fin al Result Performing Organization Address City/[facility]/ZIP Co de Phone Number [facility] TREVINO (SPENCER) 1 [place] [address] * Magnesium (11/28/2024 9:37 AM CDT) Magnesium 1.7 1.4 - 2.5 mg/dL Blood 11/28/2024 9:37 AM CDT 11/28/2024 9:44 AM CDT [facility] Erika MackWoofound LAB BLOOD ORDERABLES Fin al Result Performing Organization Address [facility] de Phone Number [facility] TREVINO (SPENCER) 1 [place] [address] * (ABNORMAL) Comprehensive metabolic panel (11/28/2024 9:37 AM CDT) Sodium 131(L) 135 - 145 mmol/L Potassium, pl 3.3 3.3 - 4.9 mmol/L [facility] ([facility]ER) Chloride 90(L) 97 - 110 mmol/L [facility] (SP[facility]) CO2 25 22 - 32 mmol/L [facility] (SPENCER) Anion gap 16(H) 2 - 15 mmol/L [facility] (SPENCER) BUN 4(L) 6 - 25 mg/dL [facility] (SPENCER) Creatinine 0.51(L) 0.60 - 1.10 mg/dL [facility] (SPENCER) Glucose 135 70 - 199 mg/dL [facility] (SPENCER) Comment: Interpretive Data Fasting glucose >/= 126 mg/dl is diagnostic for diabetes. Fasting is defined as no caloric intake for at least 8 hours. Fasting glucose between 100 mg/dl to 125 mg/dl is diagnostic of prediabetes. In a patient with classic symptoms of hyperglycemia or hyperglycemic crisis, a random glucose >/= 200 mg/dl is diagnostic for diabetes. In the absence of unequivocal hyperglycemia, results should be confirmed by repeat testing. The classification and Diagnosis of Diabetes Diabetes Care 2021; 46: S19-S40. Current interpretive data was last revised 2022. Calcium 8.2(L) 8.5 - 10.3 mg/dL [facility] (SPENCER) Bilirubin, total 0.6 0.1 - 1.2 mg/dL [facility] (SPENCER) Protein, pl 7.1 6.5 - 8.5 g/dL [facility] (SPENCER) Albumin 3.8 3.5 - 5.0 g/dL [facility] (SPENCER) Alk phos 68 40 - 130 Units/L [facility] (SPENCER) ALT 29 7 - 45 Units/L [facility] (SPENCER) AST 36 10 - 45 Units/L [facility] (SPENCER) Blood 11/28/2024 9:37 AM CDT 11/28/2024 9:44 AM CDT Gwen Max DO LAB BLOOD ORDERABLES Fin al Result [facility] (SPENCER) [address] [facility] Department [place] [address] * eGFR (11/28/2024 4:42 AM CDT) eGFR >90 >=60 mL/min/1. 73 m2 Comment: Interpretive Data Reference Interval Normal >/= 90 mL/min/1.73m2 Mildly decreased* 60 - 89 mL/min/1.73m2 Mildly to moderately decreased 45 - 59 mL/min/1.73m2 Moderately to severely decreased 30 - 44 mL/min/1.73m2 Severely decreased 15 - 29 mL/min/1.73m2 Kidney Failure < 15 mL/min/1.73m2 *Relative to young adult level Estimated glomerular filtration rate is determined by the 2020 CKD-EPI equation recommended by the National Kidney Foundation (A Unifying Approach to GFR Estimation: Recommendations of the NKF-ASK Task Force on Reassessing the Inclusion of Race in Diagnosing Kidney Disease, JASN 2020). The CKD-EPI equation should not be used for patients with unstable renal function and has not been validated in children and those over 70. Current interpretive data was last reviewed 2021. Blood 11/28/2024 4:42 AM CDT 11/28/2024 4:54 AM CDT us Kaylin MONZON LAB BLOOD ORDERABLES Pam melisa Result [facility] (PEDRO) [address] [facility] [place] [address] * (ABNORMAL) Differential, auto (11/28/2024 4:42 AM CDT) Neutrophil abs 7.32(H) 1.50 - 6.50 K/cumm Imm gran abs 0.03 0.00 - 0.10 K/cumm [facility] (SPENCER) Lymphocyte abs 2.91 0.80 - 3.30 K/cumm [facility] (SPENCER) Monocyte abs 0.65 0.20 - 0.80 K/cumm [facility] (SPENCER) Eosinophil abs 0.07 0.00 - 0.50 K/cumm [facility] (SPENCER) Basophil abs 0.04 0.00 - 0.10 K/cumm [facility] (SPENCER) Neutrophil pct 66.4 % [facility] (PEDRO) Comment: Interpretive Data Percent cell count reference ranges are not reported, since discordance with absolute values may lead to misinterpretation of CBC data. Current Interpretive Data was last revised on 2017. Imm gran pct 0.3 % [facility] (SPENCER) Comment: Interpretive Data Percent cell count reference ranges are not reported, since discordance with absolute values may lead to misinterpretation of CBC data. Current Interpretive Data was last revised on 2017. Lymphocyte pct 26.4 % [facility] (SPENCER) Comment: Interpretive Data Percent cell count reference ranges are not reported, since discordance with absolute values may lead to misinterpretation of CBC data. Current Interpretive Data was last revised on 2017. Monocyte pct 5.9 % [facility] (SPENCER) Comment: Interpretive Data Percent cell count reference ranges are not reported, since discordance with absolute values may lead to misinterpretation of CBC data. Current Interpretive Data was last revised on 2017. Eosinophil pct 0.6 % [facility] (SPENCER) Comment: Interpretive Data Percent cell count reference ranges are not reported, since discordance with absolute values may lead to misinterpretation of CBC data. Current Interpretive Data was last revised on 2017. Basophil pct 0.4 % [facility] (SPENCER) Comment: Interpretive Data Percent cell count reference ranges are not reported, since discordance with absolute values may lead to misinterpretation of CBC data. Current Interpretive Data was last revised on 2017. Blood 11/28/2024 4:42 AM CDT 11/28/2024 4:53 AM CDT Kaylin MONZON LAB BLOOD ORDERABLES Pam vincent Result [facility] (SPENCER) [address] [facility] [place] [address] * (ABNORMAL) CBC with auto differential (11/28/2024 4:42 AM CDT) WBC 11.02(H) 3.80 - 9.90 K/cumm Hgb 14.4 11.9 - 15.5 g/dL [facility] (SPENCER) Hct 39.8 35.6 - 45.5 % [facility] (SPENCER) Plt 177 150 - 400 K/cumm [facility] (SPENCER) MPV 10.0 9.1 - 12.3 fL [facility] (SPENCER) RBC 4.31 3.90 - 5.20 M/cumm [facility] (SPENCER) MCV 92.3 81.3 - 96.4 fL [facility] (SPENCER) MCH 33.4(H) 27.1 - 33.3 pg [facility] (SPENCER) MCHC 36.2(H) 32.3 - 35.7 g/dL [facility] (SPENCER) RDW CV 12.7 11.1 - 14.9 % [facility] (SPENCER) RDW SD 43.0 35.7 - 48.1 fL [facility] (SPENCER) NRBC abs 0.00 0.00 - 0.01 K/cumm [facility] (SPENCER) Blood 11/28/2024 4:42 AM CDT 11/28/2024 4:53 AM CDT Kaylin MONZON LAB BLOOD ORDERABLES Pam l Result [facility] (SPENCER) 1 [facility] [place] [address] * Magnesium (11/28/2024 4:42 AM CDT) Pathologist [facility] Magnesium 1.8 1.4 - 2.5 mg/dL Blood 11/28/2024 4:42 AM CDT 11/28/2024 4:54 AM CDT Param Crespo MD LAB BLOOD ORDERABLES Fi nal Result Performing Organization Address [facility] Co de Phone Number [facility] (SPENCER) 1 [facility] [place] [address] * (ABNORMAL) Comprehensive metabolic panel (11/28/2024 4:42 AM CDT) Sodium 136 135 - 145 mmol/L Potassium, pl 2.9(C) 3.3 - 4.9 mmol/L [facility] (SPENCER) Comment:Critical Result call ed by [email or web address] at 2024-11-28 05:35:10. Result Read Back by Willa Viera [facility] Chloride 95(L) 97 - 110 mmol/L [facility] (SPENCER) CO2 25 22 - 32 mmol/L [facility] (SPENCER) Anion gap 16(H) 2 - 15 mmol/L [facility] (SPENCER) BUN 5(L) 6 - 25 mg/dL [facility] ([facility]) Creatinine 0.57(L) 0.60 - 1.10 mg/dL [facility] (SPENCER) Glucose 124 70 - 199 mg/dL [facility] (SPENCER) Comment: Interpretive Data Fasting glucose >/= 126 mg/dl is diagnostic for diabetes. Fasting is defined as no caloric intake for at least 8 hours. Fasting glucose between 100 mg/dl to 125 mg/dl is diagnostic of prediabetes. In a patient with classic symptoms of hyperglycemia or hyperglycemic crisis, a random glucose >/= 200 mg/dl is diagnostic for diabetes. In the absence of unequivocal hyperglycemia, results should be confirmed by repeat testing. The classification and Diagnosis of Diabetes Diabetes Care 2021; 46: S19-S40. Current interpretive data was last revised 2022. Calcium 8.4(L) 8.5 - 10.3 mg/dL [facility] (SPENCER) Bilirubin, total 0.5 0.1 - 1.2 mg/dL [facility] (SPENCER) Protein, pl 6.4(L) 6.5 - 8.5 g/dL [facility] (SPENCER) Albumin 3.7 3.5 - 5.0 g/dL [facility] (SPENCER) Alk phos 58 40 - 130 Units/L [facility] (SPENCER) ALT 25 7 - 45 Units/L [facility] (SPENCER) AST 26 10 - 45 Units/L [facility] (SPENCER) Blood 11/28/2024 4:42 AM CDT 11/28/2024 4:54 AM CDT us Kaylin MONZON LAB BLOOD ORDERABLES Pam l Result [facility] (PEDRO) [address] [facility] [place] [address] * CT Chest PE (CTA) Abdomen Pelvis W Contrast (11/27/2024 8:25 PM CDT) Anatomical Region Laterality Modality Body N/A Computed Tomogra phy 11/27/2024 8:38 PM CDT Narrative 11/27/2024 8:42 PM CDT EXAM DESCRIPTION: CT CHEST PE (CTA) ABDOMEN PELVIS W CONTRAST REASON FOR STUDY: possible sepsis Alcohol withdrawal. Patient complains of shortness of breath and chest pain. Concern for sepsis. TECHNIQUE: CTA scan of the chest and routine venous phase CT of the abdomen pelvis performed with intravenous and without oral contrast using helical scanning technique with dynamic intravenous contrast injection. Arterial phase images of the chest obtained as well as portal venous phase images of the abdomen and pelvis. Automated exposure control was used as a dose optimization technique for this examination. Reconstructed coronal and sagittal MPR images reviewed. All images stored on PACS. 3D MIP images were reviewed. CONTRAST TYPE/DOSE: 100mL of IOVERSOL 350 MG IODINE/ML INTRAVENOUS SYRINGE injected via intravenous COMPARISON: CT abdomen and pelvis 10/07/2024, CT chest abdomen and pelvis 08/18/2024 REFERENCE: Per ACR white paper recommendations, unless otherwise specified no follow-up imaging is recommended for incidental renal and adrenal lesions per consensus recommendations based on imaging criteria. Further lab evaluation could be pursued based on clinical findings. FINDINGS: VASCULATURE: No central pulmonary embolism. Suboptimal bolus for evaluation of small peripheral emboli. No aortic aneurysm or dissection. CHEST: HEART: Heart size is normal with no pericardial effusion. MEDIASTINUM/DARRON: No identified masses or abnormal nodes by size criteria. LUNGS/PLEURA: No nodules or masses. No pneumonia. No pleural effusion. No pneumothorax. CHEST WALL/AXILLA: No adenopathy. No masses. MUSCULOSKELETAL: No acute findings. OTHER: No significant abnormality. ABDOMEN/PELVIS: LIVER: Diffuse hepatic steatosis. GALLBLADDER: Normal. SPLEEN: Normal. PANCREAS: Normal ADRENALS: Normal. KIDNEYS/URINARY TRACT: Normal appearance of the kidneys. Urinary bladder is unremarkable. GI: Wall thickening in the transverse and left colon. No bowel obstruction. Normal appendix. PERITONEUM: No ascites or free air. REPRODUCTIVE: Normal. VASCULATURE: No abdominal aortic aneurysm. MUSCULOSKELETAL: No acute finding. OTHER: Tiny fat containing paraumbilical hernia. IMPRESSION: No central pulmonary embolism. Evidence of an inflammatory or infectious colitis. Hepatic steatosis. THIS IS AN ELECTRONICALLY VERIFIED FINAL REPORT 11/27/2024 8:42 PM - Electronically signed by Gregory Pablo M.D. JR: Report ID: [id number] Reading Location: [place] [address] Procedure Note Gregory Pablo MD - 11/27/2024 EXAM DESCRIPTION: CT CHEST PE (CTA) ABDOMEN PELVIS W CONTRAST REASON FOR STUDY: possible sepsis Alcohol withdrawal. Patient complains of shortness of breath and chestpain. Concern for sepsis. TECHNIQUE: CTA scan of the chest and routine venous phase CT of theabdomen pelvis performed with intravenous and without oral contrast using helical scanning technique with dynamic intravenous contrast injection. Arterialphase images of the chest obtained as well as portal venous phase images of the abdomen and pelvis. Automated exposure control was used as a doseoptimization technique for this examination. Reconstructed coronal and sagittal MPRimages reviewed. All images stored on PACS. 3D MIP images were reviewed. CONTRAST TYPE/DOSE: 100mL of IOVERSOL 350 MG IODINE/ML INTRAVENOUSSYRINGE injected via intravenous COMPARISON: CT abdomen and pelvis 10/07/2024, CT chest abdomen andpelvis 08/18/2024 REFERENCE: Per ACR white paper recommendations, unless otherwise specifiedno follow-up imaging is recommended for incidental renal and adrenal lesionsper consensus recommendations based on imaging criteria. Further labevaluation could be pursued based on clinical findings. FINDINGS: VASCULATURE: No central pulmonary embolism. Suboptimal bolus forevaluation of small peripheral emboli. No aortic aneurysm or dissection. CHEST: HEART: Heart size is normal with no pericardial effusion. MEDIASTINUM/DARRON: No identified masses or abnormal nodes by sizecriteria. LUNGS/PLEURA: No nodules or masses. No pneumonia. No pleural effusion.No pneumothorax. CHEST WALL/AXILLA: No adenopathy. No masses. MUSCULOSKELETAL: No acute findings. OTHER: No significant abnormality. ABDOMEN/PELVIS: LIVER: Diffuse hepatic steatosis. GALLBLADDER: Normal. SPLEEN: Normal. PANCREAS: Normal ADRENALS: Normal. KIDNEYS/URINARY TRACT: Normal appearance of the kidneys. Urinarybladder is unremarkable. GI: Wall thickening in the transverse and left colon. No bowelobstruction. Normal appendix. PERITONEUM: No ascites or free air. REPRODUCTIVE: Normal. VASCULATURE: No abdominal aortic aneurysm. MUSCULOSKELETAL: No acute finding. OTHER: Tiny fat containing paraumbilical hernia. IMPRESSION: No central pulmonary embolism. Evidence of an inflammatory or infectious colitis. Hepatic steatosis. THIS IS AN ELECTRONICALLY VERIFIED FINAL REPORT 11/27/2024 8:42 PM - Electronically signed by Gregory Pablo M.D. JR: Report ID: [id number] Reading Location: [id number] Kaylin MONZON IMG CT PROCEDURES Final R esult * (ABNORMAL) Sepsis Lactate w/ Reflex (11/27/2024 7:28 PM CDT) [facility] [address] Sepsis Lactate 2.7(H) 0.7 - 2.0 mmol/L Blood 11/27/2024 7:28 PM CDT 11/27/2024 7:31 PM CDT Sam Estrada MD LAB BLOOD ORDERABLE S Final Result Performing Organization Address City/[facility] Co de Phone Number [facility] PEDRO) [address] [place] [address] [place] [address] * Ethanol (11/27/2024 6:09 PM CDT) [facility] [address] Ethanol <10 <=10 mg/dL Comment: Interpretive Data Legal limit of intoxication > or = 80 mg/dL Levels > or = 400 mg/dL are potentially TOXIC. Current interpretive data was last revised on 2018. Blood 11/27/2024 6:09 PM CDT 11/27/2024 6:12 PM CDT Kaylin MONZON LAB BLOOD ORDERABLES Pam l Result [facility] PEDRO) [address] [place] [address] [place] [address] * (ABNORMAL) Drugs of Abuse Screen, Urine without Confirmation (11/27/2024 6:08 PM CDT) [facility] [address] Amphetamine, ur Not Detected CutOff 500ng/mL Comment: Interpretive Data - Amphetamines: Samples containing greater than 500 ng/mL d-methamphetamine or other cross-reacting amphetamine compounds are reported as positive. Amphetamine immunoassays are subject to significant false positive rates due to cross-reactivity of non-amphetamine drugs. Confirmatory testing required for definitive results. Current Interpretive Data was last reviewed 2023. Barbiturates, ur Screen Positive, presumptive (A) CutOff 200ng/mL [facility] (SPENCER) Comment: Interpretive Data - Barbiturates: Samples containing greater than 200 ng/mL secobarbital or other cross-reacting barbiturate compounds are reported as positive. False positive and false negative results are possible. Confirmatory testing required for definitive results. Current Interpretive Data was last reviewed 2023. Benzodiazepines, ur Not Detected CutOff 100ng/mL [facility] (SPENCER) Comment: Interpretive Data - Benzodiazepines: Samples containing greater than 100 ng/mL nordiazepam or other cross-reacting compounds are reported as positive. False positive and false negative results are possible. Confirmatory testing required for definitive results. Current Interpretive Data was last reviewed 2023. Cannabinoids, ur Screen Positive, presumptive (A) CutOff 50 ng/mL [facility] (SPENCER) Comment: Interpretive Data - Cannabinoids: Samples containing greater than 50 ng/mL delta-9 THC -COOH or other cross- reacting compounds are reported as positive. False positive and false negative results are possible. Confirmatory testing required for definitive results. Current Interpretive Data was last reviewed 2023. Cocaine, ur Not Detected CutOff 150ng/mL [facility] (SPENCER) Comment: Interpretive Data - Cocaine: Samples containing greater than 150 ng/mL benzoylecgonine or other cross- reacting compounds are reported as positive. False positive and false negative results are possible. Confirmatory testing required for definitive results. Current Interpretive Data was last reviewed 2023. Fentanyl, Ur Not Detected CutOff 5 ng/mL [facility] (SPENCER) Comment: Interpretive Data - Fentanyl: Samples containing greater than 5 ng/mL norfentanyl, fentanyl, or other cross-reacting fentanyl compounds are reported as positive. False positive and false negative results are possible. Confirmatory testing required for definitive results. Current Interpretive Data was last reviewed 2023. Methadone, ur Not Detected CutOff 300ng/mL [facility] (SPENCER) Comment: Interpretive Data - Methadone: Samples containing greater than 300 ng/mL d,l-methadone or other cross-reacting compounds are reported as positive. False positive and false negative results are possible. Confirmatory testing required for definitive results. Current Interpretive Data was last reviewed 2023. Opiates, ur Not Detected CutOff 300ng/mL [facility] (SPENCER) Comment: Interpretive Data - Opiates: Samples containing greater than 300 ng/mL morphine or other cross-reacting compounds are reported as positive. False positive and false negative results are possible. Confirmatory testing required for definitive results. Current Interpretive Data was last reviewed 2023. Oxycodone, ur Not Detected CutOff 100ng/mL [facility] (SPENCER) Comment: Interpretive Data - Oxycodone: Samples containing greater than 100 ng/mL oxycodone or other cross-reacting compounds are reported as positive. False positive and false negative results are possible. Confirmatory testing required for definitive results. Current Interpretive Data was last reviewed 2023. Phencyclidine, ur Not Detected CutOff 25 ng/mL [facility] (SPENCER) Comment: Interpretive Data - Phencyclidine: Samples containing greater than 25 ng/mL phencyclidine or other cross-reacting compounds are reported as positive. False positive and false negative results are possible. Confirmatory testing required for definitive results. Current Interpretive Data was last reviewed 2023. Urine Creatinine 64 mg/dL [facility] (SPENCER) Comment: Interpretive Data Urine Creatinine: < 10 mg/dL is extremely dilute = or > 10 but < 20 mg/dL is dilute = or > 20 mg/dL is normal Current Interpretive Data was last revised on 2017. Urine 11/27/2024 6:08 PM CDT 11/27/2024 6:14 PM CDT Narrative [facility] (SPENCER) - 11/27/2024 6:53 PM CDT Drug of Abuse screening is performed by immunoassay for medical purposes only. This is not to be used for Pain Management purposes. us Kaylin MONZON LAB URINE ORDERABLES Pam vincent Result [facility]REVINO (PEDRO) [address] [facility] [place] [address] * (ABNORMAL) Sepsis Lactate w/ Reflex (11/27/2024 4:32 PM CDT) Sepsis Lactate 4.4(C) 0.7 - 2.0 mmol/L Comment:Critical result call ed to and read back by Jenna Segura(er) on 11/27/2024 16:52:43 CDT to Kathleen Caputo. Blood 11/27/2024 4:32 PM CDT 11/27/2024 4:51 PM CDT us Sam Estrada MD LAB BLOOD ORDERABLE S Final Result [facility] (SPENCER) [address] [facility] Department of [place] [address] * Blood culture Blood Peripheral (11/27/2024 2:53 PM CDT) Report Final Report: No growth Comment:Testing performed by : [facility], 1 [place]., [address] Blood (Peripheral) 11/27/2024 2:53 PM CDT 11/27/2024 6:45 PM CDT Narrative ZAID TREVINO (SPENCER) - 12/02/2024 7:01 AM CDT From a different site than #1. Draw Blood cultures before administration of Antibiotics Collection->Peripheral 1. Blood cultures are incubated for 4 days on a continuously monitored blood culture system. The first report of a negative culture is issued within 24 hours of receipt of the specimen in the laboratory. 2. Positive culture results are reported as soon as they are detected. 3. The most important factor for detection of microbes in the setting of bloodstream infection is the volume of blood submitted for culture. Failure to collect an optimal blood volume can result in false negative blood cultures. 4. For pediatric patients, the recommended blood volume to collect follows a weight based strategy. See the electronic test catalog for collection instructions. 5. For positive blood cultures, a rapid molecular test may be performed for organism identification using the sterling ePlex blood culture identification panel for gram positive (BCID-GP) and gram negative (BCID-GN) organisms. This nucleic acid amplification test detects microbial DNA in positive blood culture broth. This assay has been cleared by the [place] Food and Drug Administration and its performance characteristics have been verified by the [facility] Microbiology Laboratory. For questions about this culture, contact the Microbiology Laboratory at [phone]. Interpretive data was last revised on 24. Sam Estrada MD LAB MICROBIOLOGY - GENERAL ORDERABLES Final Result ZAID URIEL (SPENCER) [address] [facility] [place] [address] * Blood culture Blood Peripheral (11/27/2024 2:53 PM CDT) Report Final Report: No growth Comment:Testing performed by : [facility], [address] [place]., [address] Blood (Peripheral) 11/27/2024 2:53 PM CDT 11/27/2024 6:46 PM CDT Narrative ZAID TERVINO (SPENCER) - 12/02/2024 7:01 AM CDT Draw Blood cultures before administration of Antibiotics Collection->Peripheral 1. Blood cultures are incubated for 4 days on a continuously monitored blood culture system. The first report of a negative culture is issued within 24 hours of receipt of the specimen in the laboratory. 2. Positive culture results are reported as soon as they are detected. 3. The most important factor for detection of microbes in the setting of bloodstream infection is the volume of blood submitted for culture. Failure to collect an optimal blood volume can result in false negative blood cultures. 4. For pediatric patients, the recommended blood volume to collect follows a weight based strategy. See the electronic test catalog for collection instructions. 5. For positive blood cultures, a rapid molecular test may be performed for organism identification using the sterling ePlex blood culture identification panel for gram positive (BCID-GP) and gram negative (BCID-GN) organisms. This nucleic acid amplification test detects microbial DNA in positive blood culture broth. This assay has been cleared by the [place] Food and Drug Administration and its performance characteristics have been verified by the [facility] Microbiology Laboratory. For questions about this culture, contact the Microbiology Laboratory at [phone]. Interpretive data was last revised on 24. us Sam Estrada MD LAB MICROBIOLOGY - GENERAL ORDERABLES Final Result ZAID TREVINO SPENCER) [address] [facility] Department of Laboratories [place], [place] [id number] * XR Chest 1 View (11/27/2024 1:58 PM CDT) Anatomical Region Laterality Modality Body, Chest N/A Computed Radiogr aphy 11/27/2024 2:02 PM CDT Narrative 11/27/2024 2:04 PM CDT EXAM DESCRIPTION: XR CHEST 1 VIEW REASON FOR STUDY: sepsis, c/f pna 43-year-old woman with a history of alcohol use disorder, hypertension, and heart failure with reduced ejection fraction who presents with concerns for alcohol withdrawal. Drinks approximately 1/5 daily. Associated with abdominal pain, nausea, and vomiting. Also with some chest pain and dyspnea. Denies fever, chills, leg swelling, BM changes, urinary symptoms, or other complaints. Denies any other substance use. TECHNIQUE: 1 radiographic view(s) of the chest. COMPARISON: None FINDINGS: LUNGS: Mild hazy opacity in the medial right lower lung may represent atelectasis or developing airspace disease. No pleural effusion or pneumothorax. HEART/MEDIASTINUM: Cardiac silhouette normal in size. Mediastinal and hilar contours appear normal. LINES/TUBES: None. BONES: No acute osseous abnormality. IMPRESSION: Mild hazy opacity in the medial right lower lung may represent atelectasis or developing airspace disease. THIS IS AN ELECTRONICALLY VERIFIED FINAL REPORT 11/27/2024 2:04 PM - Electronically signed by Jayce Cano M.D. MM: MM Report ID: [id number] Reading Location: [id number] Procedure Note Jayce Cano MD - 11/27/2024 EXAM DESCRIPTION: XR CHEST 1 VIEW REASON FOR STUDY: sepsis, c/f pna 43-year-old woman with a history of alcohol use disorder, hypertension,and heart failure with reduced ejection fraction who presents with concerns for alcohol withdrawal. Drinks approximately 1/5 daily.Associated with abdominal pain, nausea, and vomiting. Also with some chest pain and dyspnea. Denies fever, chills, leg swelling, BM changes, urinary symptoms,or other complaints. Denies any other substance use. TECHNIQUE: 1 radiographic view(s) of the chest. COMPARISON: None FINDINGS: LUNGS: Mild hazy opacity in the medial right lower lung may represent atelectasis or developing airspace disease. No pleural effusion or pneumothorax. HEART/MEDIASTINUM: Cardiac silhouette normal in size. Mediastinal andhilar contours appear normal. LINES/TUBES: None. BONES: No acute osseous abnormality. IMPRESSION: Mild hazy opacity in the medial right lower lung may represent atelectasisor developing airspace disease. THIS IS AN ELECTRONICALLY VERIFIED FINAL REPORT 11/27/2024 2:04 PM - Electronically signed by Jayce Cano M.D. MM: MM Report ID: [id number] Reading Location: [place] [address] us Sam Estrada MD IMG XR PROCEDURES F inal Result * (ABNORMAL) Urinalysis reflex to microscopic and culture Urine (11/27/2024 1:25 PM CDT) Color, ur Yellow Yellow Clarity, ur Clear Clear [facility]AID [facility] (SPENCER) Specific gravity, ur 1.018 1.003 - 1.030 [facility] (SPENCER) pH, urine 5.5 [facility] (SPENCER) Comment: Interpretive Data U rine pH is affected by diet, medications, systemic acid-base disturbances, and renal tubular function. pH may affect urinary stone formation. For example, urine pH below 6.0 may help reduce the tendency for calcium phosphate stones and pH greater than 6.0 may reduce the tendency for uric acid stone formation. Source: [employer] Current Interpretive Data was last revised on 2017 Protein, ur ql Negative Negative [facility] (SPENCER) Glucose, ur ql Negative Negative [facility] (SPENCER) Ketones, ur 1+(A) Negative ZAID Lara [facility] (SPENCER) Bilirubin, ur Negative Negative [facility] (SPENCER) Blood, ur Negative Negative [facility] (SPENCER) Urobilinogen, ur <2.0 <2.0 mg/dL [facility] (SPENCER) Nitrite, ur Negative Negative CERNER A (SPENCER) Leukocyte esterase, ur Negative Negative [facility] (SPENCER) UA reflex comment Reflex conditions for microscopic UA and culture not met. [facility] (SPENCER) Urine 11/27/2024 1:25 PM CDT 11/27/2024 5:57 PM CDT Sam Estrada MD LAB MICROBIOLOGY - GENERAL ORDERABLES Final Result Performing Organization Address City/[facility]/ZIP Co de Phone Number ZAID TREVINO (PEDRO) [address] [facility] [place] [place] [address] * (ABNORMAL) Sepsis Lactate w/ Reflex (11/27/2024 12:58 PM CDT) [facility] [address] Sepsis Lactate 8.2(C) 0.7 - 2.0 mmol/L Comment:Critical result call ed to and read back by Connor De Dios RN (ER) on 11/27/2024 13:05:20 CDT to Rose Marie Bryant. Blood 11/27/2024 12:5 8 PM CDT 11/27/2024 1:01 PM CDT us Sam Estrada MD LAB BLOOD ORDERABLE S Final Result ZAID TREVINO (PEDRO) 1 [facility] [place] [address] * eGFR (11/27/2024 12:58 PM CDT) [facility] [address] eGFR >90 >=60 mL/min/1. 73 m2 Comment: Interpretive Data Reference Interval Normal >/= 90 mL/min/1.73m2 Mildly decreased* 60 - 89 mL/min/1.73m2 Mildly to moderately decreased 45 - 59 mL/min/1.73m2 Moderately to severely decreased 30 - 44 mL/min/1.73m2 Severely decreased 15 - 29 mL/min/1.73m2 Kidney Failure < 15 mL/min/1.73m2 *Relative to young adult level Estimated glomerular filtration rate is determined by the 2020 CKD-EPI equation recommended by the National Kidney Foundation (A Unifying Approach to GFR Estimation: Recommendations of the NKF-ASK Task Force on Reassessing the Inclusion of Race in Diagnosing Kidney Disease, JASN 2020). The CKD-EPI equation should not be used for patients with unstable renal function and has not been validated in children and those over 70. Current interpretive data was last reviewed 2021. Blood 11/27/2024 12:5 8 PM CDT 11/27/2024 1:01 PM CDT us Sam Estrada MD LAB BLOOD ORDERABLE S Final Result [facility] (PEDRO) [address] [facility] [place] [address] * (ABNORMAL) Basic metabolic panel (11/27/2024 12:58 PM CDT) Sodium 134(L) 135 - 145 mmol/L Potassium, pl 3.6 3.3 - 4.9 mmol/L [facility] (SPENCER) Chloride 92(L) 97 - 110 mmol/L [facility] (SPENCER) CO2 22 22 - 32 mmol/L [facility] (SPENCER) Anion gap 20(H) 2 - 15 mmol/L [facility] (SPENCER) BUN 12 6 - 25 mg/dL [facility] (SPENCER) Creatinine 0.57(L) 0.60 - 1.10 mg/dL [facility] (SPENCER) Glucose 93 70 - 199 mg/dL [facility] (SPENCER) Comment: Interpretive Data Fasting glucose >/= 126 mg/dl is diagnostic for diabetes. Fasting is defined as no caloric intake for at least 8 hours. Fasting glucose between 100 mg/dl to 125 mg/dl is diagnostic of prediabetes. In a patient with classic symptoms of hyperglycemia or hyperglycemic crisis, a random glucose >/= 200 mg/dl is diagnostic for diabetes. In the absence of unequivocal hyperglycemia, results should be confirmed by repeat testing. The classification and Diagnosis of Diabetes Diabetes Care 2021; 46: S19-S40. Current interpretive data was last revised 2022. Calcium 8.6 8.5 - 10.3 mg/dL [facility] (PEDRO) Blood 11/27/2024 12:5 8 PM CDT 11/27/2024 1:01 PM CDT Sam Estrada MD LAB BLOOD ORDERABLE S Final Result Performing Organization Address [facility] de Phone Number [facility] (PEDRO) 1 [place] [address] * hCG, blood, quantitative (11/27/2024 12:57 PM CDT) hCG, quant <5.0 0.0 - 5.0 IUnits/L Comment: Interpretive Data Male: < 5 IU/L Non- premenopausal Female: <5 IU/L The Regla hCG Beta Quant assay procedure was used. Results from different manufacturers or methods may not be comparable. Serial testing should be performed using the same method. Interpretive Data was last revised on 2023 Blood 11/27/2024 12:5 7 PM CDT 11/27/2024 1:27 PM CDT Sam Estrada MD LAB BLOOD ORDERABLE S Edited Result - Final Performing Organization Address [facility] de Phone Number [facility] (PEDRO) 1 [place] [address] * (ABNORMAL) Blood gas, venous (11/27/2024 12:57 PM CDT) pH, Venous 7.45(H) 7.32 - 7.43 PCO2, Venous 35(L) 40 - 50 mmHg [facility] (SPENCER) PO2, Venous 71 mmHg ZAID Lara (PEDRO) Comment: Interpretive Data No reference range established. Current interpretive data was last revised 2017. HCO3 Venous, Calculated 24 20 - 30 mmol/L [facility] (SPENCER) BE, venous 1 mmol/L [facility] (SPENCER) Comment: Interpretive Data No Reference Range Established Current Interpretive Data was last revised on 2017. Blood 11/27/2024 12:5 7 PM CDT 11/27/2024 1:19 PM CDT Sam Estrada MD LAB BLOOD ORDERABLE S Final Result Performing Organization Address City/[facility] Co de Phone Number [facility] (PEDRO) 1 [facility] [place] [place] [address] * POCT glucose (11/27/2024 11:56 AM CDT) [facility] [address] Glucose, POC 116 70 - 199 mg/dL Blood 11/27/2024 11:5 6 AM CDT 11/27/2024 11:56 AM CDT Sam Estrada MD LAB POCT ORDERABLES - DEVICE Final Result Performing Organization Address [facility] de Phone Number [facility] (PEDRO) 1 [facility] [place] [place] [address] * ECG 12 lead (11/27/2024 10:17 AM CDT) 11/27/2024 10:1 7 AM CDT Narrative [facility] - 11/27/2024 11:43 AM CDT Vent Rate: 136 bpm RR Interval: 440 msec VT Interval: 139 msec QRS Duration: 86 msec QT Interval: 330 msec QTC Interval: 410 msec P-R-T [place]: 34 - 30 - 10 degrees IMPRESSION: SINUS TACHYCARDIA NONSPECIFIC ST \T\ T-WAVE ABNORMALITY ABNORMAL RHYTHM ECG Electronically Signed By: Peewee Connors MD Sam Estrada MD ECG ORDERABLES Fin al Result Performing Organization Address [facility] Co de Phone Number [facility] * eGFR (11/27/2024 9:53 AM CDT) eGFR >90 >=60 mL/min/1. 73 m2 Comment: Interpretive Data Reference Interval Normal >/= 90 mL/min/1.73m2 Mildly decreased* 60 - 89 mL/min/1.73m2 Mildly to moderately decreased 45 - 59 mL/min/1.73m2 Moderately to severely decreased 30 - 44 mL/min/1.73m2 Severely decreased 15 - 29 mL/min/1.73m2 Kidney Failure < 15 mL/min/1.73m2 *Relative to young adult level Estimated glomerular filtration rate is determined by the 2020 CKD-EPI equation recommended by the National Kidney Foundation (A Unifying Approach to GFR Estimation: Recommendations of the NKF-ASK Task Force on Reassessing the Inclusion of Race in Diagnosing Kidney Disease, JASN 2020). The CKD-EPI equation should not be used for patients with unstable renal function and has not been validated in children and those over 70. Current interpretive data was last reviewed 2021. Blood 11/27/2024 9:53 AM CDT 11/27/2024 10:03 AM CDT us Sam Estrada MD LAB BLOOD ORDERABLE S Final Result Performing Organization Address City/[facility]/ZIP Co de Phone Number [facility] (PEDRO) [address] [place] [address] [place] [address] * Beta-hydroxybutyrate (11/27/2024 9:53 AM CDT) Beta-Hydroxybut yrate 0.3 <=0.5 mmol/L Comment:Testing performed by : [facility], [address] [place] [address]., [id number] Blood 11/27/2024 9:53 AM CDT 11/27/2024 3:34 PM CDT us Sam Estrada MD LAB BLOOD ORDERABLE S Final Result ZAID TREVINO (PEDRO) 1 [facility] [place] [address] * (ABNORMAL) CBC with auto differential (11/27/2024 9:53 AM CDT) WBC 9.79 3.80 - 9.90 K/cumm Hgb 16.6(H) 11.9 - 15.5 g/dL [facility] (SPENCER) Hct 44.7 35.6 - 45.5 % [facility] (SPENCER) Plt 288 150 - 400 K/cumm [facility] (SPENCER) MPV 9.7 9.1 - 12.3 fL [facility] (SPENCER) RBC 4.94 3.90 - 5.20 M/cumm [facility] (SPENCER) MCV 90.5 81.3 - 96.4 fL [facility] (SPENCER) MCH 33.6(H) 27.1 - 33.3 pg [facility] (SPENCER) MCHC 37.1(H) 32.3 - 35.7 g/dL [facility] (SPENCER) RDW CV 12.3 11.1 - 14.9 % [facility] (SPENCER) RDW SD 40.6 35.7 - 48.1 fL [facility] (SPENCER) NRBC abs 0.02(H) 0.00 - 0.01 K/cumm [facility] (SPENCER) Blood 11/27/2024 9:53 AM CDT 11/27/2024 10:03 AM CDT us Sam Estrada MD LAB BLOOD ORDERABLE S Final Result [facility] (SPENCER) [address] [facility] [place] [address] * (ABNORMAL) Manual Differential (11/27/2024 9:53 AM CDT) Pathologist [facility] Differential Manual Cells Counted 100 [facility] (SPENCER) Neutrophil abs 7.73(H) 1.50 - 6.50 K/cumm [facility] (SPENCER) Imm gran abs 0.10 0.00 - 0.10 K/cumm [facility] (SPENCER) Lymphocyte abs 1.76 0.80 - 3.30 K/cumm [facility] (SPENCER) Monocyte abs 0.10(L) 0.20 - 0.80 K/cumm [facility] (SPENCER) Basophil abs 0.10 0.00 - 0.10 K/cumm [facility] (SPENCER) Neutrophil pct 79.0 % [facility] (SPENCER) Comment: Interpretive Data Percent cell count reference ranges are not reported, since discordance with absolute values may lead to misinterpretation of CBC data. Current Interpretive Data was last revised on 2017. Lymphocyte pct 17.0 % [facility] (SPENCER) Comment: Interpretive Data Percent cell count reference ranges are not reported, since discordance with absolute values may lead to misinterpretation of CBC data. Current Interpretive Data was last revised on 2017. Monocyte pct 1.0 % [facility] (SPENCER) Comment: Interpretive Data Percent cell count reference ranges are not reported, since discordance with absolute values may lead to misinterpretation of CBC data. Current Interpretive Data was last revised on 2017. Basophil pct 1.0 % [facility] (SPENCER) Comment: Interpretive Data Percent cell count reference ranges are not reported, since discordance with absolute values may lead to misinterpretation of CBC data. Current Interpretive Data was last revised on 2017. Metamyelocyte pct 1.0(H) 0.0 - 0.0 % [facility] (SPENCER) Variant lymph pct 1.0(H) 0.0 - 0.0 % [facility] (SPENCER) RBC morphology Consistent with RBC Indicies ZAID TREVINO (PEDRO) Platelet estimate Adequate CE RNER URIEL (PEDRO) Blood 11/27/2024 9:53 AM CDT 11/27/2024 10:03 AM CDT us Sam Estrada MD LAB BLOOD ORDERABLE S Final Result ZAID TREVINO (PEDRO) [address] [facility] [place] [address] * Protime-INR (11/27/2024 9:53 AM CDT) PT 12.3 9.7 - 13.0 sec ZAID TREVINO (PEDRO) INR 1.14 0.90 - 1.20 ZAID TREVINO (PEDRO) Comment: Interpretive data Oral anticoagulant therapeutic ranges: Venous thromboembolism prophylaxis or treatment: 2.0-3.0 CARDIOLOGY Standard range: 2.0-3.0 High-intensity range: 2.5-3.5 Refer to indication-specific guidelines for appropriate target ranges for prosthetic heart valve replacement. Current interpretive data was last revised on 2019. Blood 11/27/2024 9:53 AM CDT 11/27/2024 10:03 AM CDT us Sam Estrada MD LAB BLOOD ORDERABLE S Final Result [facility] (PEDRO) [address] [place] [address] [place] [address] * Magnesium (11/27/2024 9:53 AM CDT) Magnesium 1.4 1.4 - 2.5 mg/dL Blood 11/27/2024 9:53 AM CDT 11/27/2024 10:03 AM CDT us Sam Estrada MD LAB BLOOD ORDERABLE S Final Result [facility] (PED[place]) 1 [facility] [place] [address] * Lipase (11/27/2024 9:53 AM CDT) Lipase 12 10 - 99 Units/L Blood 11/27/2024 9:53 AM CDT 11/27/2024 10:07 AM CDT Sam Estrada MD LAB BLOOD ORDERABLE S Final Result ZAID TREVINO (PEDRO) 1 [facility] [place] [place] [address] * Hemoglobin A1c (11/27/2024 9:53 AM CDT) Hgb A1C 5.6 4.0 - 5.6 % Estimated Average Glucose 114 mg/dL [facility] (SPENCER) Comment: The ADA recommends reporting an estimated Average Glucose (eAG) with all Hemoglobin A1c results using the equation derived from a study of 507 normal and diabetic adults. Minority populations were underrepresented and children were not included. (Diabetes Care 31:3645-4115, 2008). The eAG is not equivalent to a fasting glucose. Blood 11/27/2024 9:53 AM CDT 11/27/2024 1:47 PM CDT us Sam Estrada MD LAB BLOOD ORDERABLE S Final Result [facility] (PEDRO) [address] [facility] [place] [address] * (ABNORMAL) Comprehensive metabolic panel (11/27/2024 9:53 AM CDT) [facility] [address] [facility] Sodium 134(L) 135 - 145 mmol/L Potassium, pl 3.3 3.3 - 4.9 mmol/L [facility] (SPENCER) Chloride 87(L) 97 - 110 mmol/L [facility] (SPENCER) CO2 16(L) 22 - 32 mmol/L [facility] (SPENCER) Anion gap 31(H) 2 - 15 mmol/L [facility] (SPENCER) BUN 13 6 - 25 mg/dL [facility] (SPENCER) Creatinine 0.60 0.60 - 1.10 mg/dL [facility] (SPENCER) Glucose 242(H) 70 - 199 mg/dL [facility] (SPENCER) Comment: Interpretive Data Fasting glucose >/= 126 mg/dl is diagnostic for diabetes. Fasting is defined as no caloric intake for at least 8 hours. Fasting glucose between 100 mg/dl to 125 mg/dl is diagnostic of prediabetes. In a patient with classic symptoms of hyperglycemia or hyperglycemic crisis, a random glucose >/= 200 mg/dl is diagnostic for diabetes. In the absence of unequivocal hyperglycemia, results should be confirmed by repeat testing. The classification and Diagnosis of Diabetes Diabetes Care 2021; 46: S19-S40. Current interpretive data was last revised 2022. Calcium 9.4 8.5 - 10.3 mg/dL [facility] (SPENCER) Bilirubin, total 0.6 0.1 - 1.2 mg/dL [facility] (SPENCER) Protein, pl 7.3 6.5 - 8.5 g/dL [facility] (SPENCER) Albumin 4.0 3.5 - 5.0 g/dL [facility] (SPENCER) Alk phos 70 40 - 130 Units/L [facility] (SPENCER) ALT 34 7 - 45 Units/L [facility] (SPENCER) AST 32 10 - 45 Units/L [facility] (SPENCER) Comment:Slightly Hemolyzed S pecimen Blood 11/27/2024 9:53 AM CDT 11/27/2024 10:03 AM CDT us Sam Estrada MD LAB BLOOD ORDERABLE S Final Result Performing Organization Address City/[facility]/ZIP Co de Phone Number [facility] ([facility] [address] [facility] [place] [address] * CT Body Outside Reference (11/04/2024 9:39 AM CDT) Impressions [facility] - 11/04/2024 9:39 AM CDT These images are for Reference purposes only and have not been reviewed by [facility]. There will be no report generated by a [facility] Radiologist. Narrative [facility] - 11/04/2024 9:39 AM CDT EXAMINATION: Images For Reference Purposes Only us Lui Oliva MD IMG CT PROCEDURES Final Result [email or web address] * CT Body Outside Reference (11/04/2024 8:52 AM CDT) Impressions [facility] - 11/04/2024 8:52 AM CDT These images are for Reference purposes only and have not been reviewed by [facility]. There will be no report generated by a [facility] Radiologist. Narrative [facility] - 11/04/2024 8:52 AM CDT EXAMINATION: Images For Reference Purposes Only Lui Oliva MD IMG CT PROCEDURES Final Result Performing Organization Address [facility] de Phone Number [email or web address] * CT Body Outside Reference (11/04/2024 8:50 AM CDT) Impressions [email or web address] - 11/04/2024 8:50 AM CDT These images are for Reference purposes only and have not been reviewed by [facility]. There will be no report generated by a [facility] Radiologist. Narrative [facility] - 11/04/2024 8:50 AM CDT EXAMINATION: Images For Reference Purposes Only Lui Oliva MD IMG CT PROCEDURES Final Result Performing Organization Address [facility] de Phone Number [email or web address] * CT Body Outside Reference (11/04/2024 8:49 AM CDT) Impressions [facility] - 11/04/2024 8:49 AM CDT These images are for Reference purposes only and have not been reviewed by [facility]. There will be no report generated by a [facility] Radiologist. Narrative [facility] - 11/04/2024 8:49 AM CDT EXAMINATION: Images For Reference Purposes Only Lui Oliva MD IMG CT PROCEDURES Final Result Performing Organization Address [facility] de Phone Number [email or web address] * CT Abdomen Pelvis W Contrast (10/07/2024 8:49 AM CDT) Anatomical Region Laterality Modality Body N/A Computed Tomogra phy Robert Martinez MD IMG CT PROCEDURES Final Result from Last 3 Months Additional Health Concerns Active Problems Noted Date Diagnosed Date Autogenerated Problem 12/04/2024 Insurance [facility] Advance Directives For more information, please contact: [phone] * Full Code (Latest Code Status on File) Date Activated Date Inactivated Comments 11/27/2024 10:24 PM 11/29/2024 1:02 PM * Full Code Date Activated Date Inactivated Comments 11/27/2024 10:24 PM 11/27/2024 10:24 PM Care Teams Grinder Set Up Operator Relationship Specialty Start Date End Date Eren Fry MD [address] [place] [address] [place] [address] PCP - General Family Medicine 10/30/24 Awilda Ramires MD [address] [place] [address] Consulting Physician Surgery 09/16/24 Lui Oliva MD [address] [phone] [place] [address] Surgeon Colon and Rectal Surgery 11/03/24
--- OUTSIDE RECORDS SUMMARY | 2025-01-01 15:28 | XMS_ITS | Continuity of Care Document ---
Author Organization [facility] Address [address] [place] [address] [place] [address] Phone Care Team Providers Care Loan Officer Assistant Name Role Phone Philip Julio MD Unavailable [...] Date Provider Providers Copied on Encounter [facility], [address] [place], [address], tel:[phone] [facility] Medicine No Information 2 Sumanth Palacios. [address], [place], [place], [address] , [place]. tel:[phone] PREV VISIT, EST, AGE 18-39 [facility], [address], [place], [place], [address], [place] tel:[phone] [facility] physical (chief complaint) Encounter for general adult medical examination without abnormal findings 2 Sumanth Palacios. [address], [place], [place], [address] , [place]. tel:[phone] OFFICE/OUTPA TIENT VISIT, EST [facility], [address] [place], [address], [place] tel:[phone] [facility] Medicine alcohol1 (chief complaint) weight gain1 (chief complaint) HCT (chief complaint) HLP (chief complaint) Generalized Anxiety DisorderAlcohol dependence, in remissionHyperlipid emiaSecondary polycythemiaAbnorma l weight gain 1 Sumanth Palacios. [address], [place], [place], [address] , [place]. tel:[phone] OFFICE/OUTPA TIENT VISIT, [facility], [address], [place], [place], [address], [place] tel:[phone] [facility] Alcohol1 (chief complaint) anxitey1 (chief complaint) GERD1 (chief complaint) Alcohol dependence with intoxication, unspecifiedGenerali zed Anxiety DisorderGastritis, unspecified, without bleeding 1 Sumanth Palacios. [address], [place], [place], [address] , [place]. tel:[phone] OFFICE/OUTPA TIENT VISIT, [facility], [address], [place], [place], [address], [place] tel:[phone] [facility] GERD w/o esophagitisAlcohol dependence, in remissionGeneralize d Anxiety Disorder 1 Sumanth Palacios. [address], [place], [place], [address] , [place]. tel:[phone] [facility], [address], [place], [place], [address], [place] tel:[phone] [facility] anxiety1 (chief complaint) alcohol1 (chief complaint) GERD1 (chief complaint) Generalized Anxiety DisorderAlcohol dependence, in remissionGERD w/o esophagitis 1 Sumanth Palacios. [address], [place], [place], [address] , [place]. tel:[phone] OFFICE/OUTPA TIENT VISIT, [facility], [address], [place], [place], [address], [place] tel:[phone] [facility] anxiety1 (chief complaint) alcohol1 (chief complaint) hirsutism1 (chief complaint) hyponaremi a1 (chief complaint) weight gain1 (chief complaint) HirsutismGeneralize d Anxiety DisorderAlcohol dependence, in remissionAbnormal weight gainHyponatremia 1 Sumanth Palacios. [address], [place], [place], [address] , [place]. tel:[phone] OFFICE/OUTPA TIENT VISIT, [facility], [address], [place], [place], [address], [place] tel:[phone] [facility] alcohol1 (chief complaint) anxiety1 (chief complaint) hirsutism1 (chief complaint) hyponatrem ia1 (chief complaint) HirsutismGeneralize d Anxiety DisorderAlcohol dependence, in remissionHyponatrem ia 1 Sumanth Lin [address], [place], [place], [address] , [place]. tel:[phone] Referring Provider: Vaibhav Esqueda [address], [place], [place], [address]. tel:[phone] OFFICE/OUTPA TIENT VISIT, [facility], [address] [place] [address] [address], [place], [place], [address], [place] tel:[phone] [facility] anxiety1 (chief complaint) hirsutism1 (chief complaint) insomnia1 (chief complaint) HirsutismGeneralize d Anxiety DisorderInsomnia 0 Sumanth Lin [address], [place], [place], [address] , [place]. tel:[phone] Referring Provider: Vaibhav Esqueda [address], [place], [place], [address]. tel:[phone] OFFICE/OUTPA TIENT VISIT, [facility], [address], [place], [place], [address], [place] tel:[phone] [facility] anxiety1 (chief complaint) weight (chief complaint) Abnormal weight gainGeneralized Anxiety Disorder 0 Sumanth Lin [address], [place], [place], [address] , [place]. tel:[phone] Referring Provider: Vaihbav Esqueda [address], [place], [place], [address]. tel:[phone] OFFICE/OUTPA TIENT VISIT, [facility], [address], [place], [place], [address], [place] tel:[phone] [facility] anxiety1 (chief complaint) weight gain1 (chief complaint) Generalized Anxiety DisorderAbnormal weight gain 0 Sumanth Palacios. [address], [place], [place], [address] , [place]. tel:[phone] Referring Provider: Philip Julio, [address], [place], [place], [address]. tel:[phone] OFFICE/OUTPA TIENT VISIT, [facility], [address], [place], [place], [address], [place] tel:[phone] [facility] HLP (chief complaint) hCT (chief complaint) glucose1 (chief complaint) anxiety1 (chief complaint) weight gain1 (chief complaint) HyperlipidemiaHyper glycemiaSecondary polycythemiaGeneral ized Anxiety DisorderAbnormal weight gain Feb- 0 Sumanth Palacios. [address], [place], [place], [address] , [place]. tel:[phone] Referring Provider: Philip Julio [address], [place], [place], [address]. tel:[phone] OFFICE/OUTPA TIENT VISIT, [facility], [address], [place], [place], [address], [place] tel:[phone] [facility] anxiety1 (chief complaint) HTN (chief complaint) Generalized Anxiety DisorderAbnormal weight lossHirsutism Jan- 0 Sumanth Palacios. [address], [place], [place], [address] , [place]. tel:[phone] Referring Provider: Philip Julio [address], [place], [place], [address]. tel:[phone] OFFICE/OUTPA TIENT VISIT, [facility], [address], [place], [place], [address], [place] tel:[phone] [facility] anxiety1 (chief complaint) weight loss1 (chief complaint) Generalized Anxiety DisorderAbnormal weight loss 0 0 Sumanth Palacios. [address], [place], [place], [address] , [place]. tel:[phone] Referring Provider: Philip Julio, [address], [place], [place], [address]. tel:[phone] OFFICE/OUTPA TIENT VISIT, [facility], [address], [place], [place], [address], [place] tel:[phone] [facility] work excuse1 (chief complaint) Fatigue 0 Sumanth Palacios. [address], [place], [place], [address] , [place]. tel:[phone] Referring Provider: Philip Julio, [address], [place], [place], [address]. tel:[phone] OFFICE/OUTPA TIENT VISIT, [facility], [address], [place], [place], [address], [place] tel:[phone] [facility] anxiety1 (chief complaint) weight1 (chief complaint) Abnormal weight gainGeneralized Anxiety Disorder 0 Sumanth Palacios. [address], [place], [place], [address] , [place]. tel:[phone] Referring Provider: Vaibhav Esqueda [address], [place], [place], [address]. tel:[phone] OFFICE/OUTPA TIENT VISIT, [facility], [address], [place], [place], [address], [place] tel:[phone] [facility] HLP (chief complaint) anxiety1 (chief complaint) Generalized Anxiety DisorderHyperlipide caitlyn 0 0 Sumanth Palacios. [address], [place], [place], [address] , [place]. tel:[phone] Referring Provider: Philip Julio [address], [place], [place], [address]. tel:[phone] OFFICE/OUTPA TIENT VISIT, EST [facility], [address], [place], [place], [address], [place] tel:[phone] [facility] Medicine anxiety1 (chief complaint) weight gain1 (chief complaint) Abnormal weight gainGeneralized Anxiety Disorder Apr-2 0 Sumanth Palacios. [address], [place], [place], [address] , [place]. tel:[phone] Referring Provider: Philip Julio [address], [place], [place], [address]. tel:[phone] OFFICE/OUTPA TIENT VISIT, [facility], [address], [place], [place], [address], [place] tel:[phone] [facility] anxiety1 (chief complaint) hand numbness1 (chief complaint) Paresthesia of skinGeneralized Anxiety Disorder Aug- 0 Sumanth Palacios. [address], [place], [place], [address] , [place]. tel:[phone] Referring Provider: Vaibhav Esqueda [address], [place], [place], [address]. tel:[phone] OFFICE/OUTPA TIENT VISIT, [facility], [address], [place], [place], [address], [place] tel:[phone] [facility] tingling1 (chief complaint) weight loss1 (chief complaint) anxiety1 (chief complaint) Other muscle spasmParesthesia of skinGeneralized Anxiety DisorderAbnormal weight loss Fe- 0- 0 Sumanth Palacios. [address], [place], [place], [address] , [place]. tel:[phone] Referring Provider: Vaibhav Esqueda [address], [place], [place], [address]. tel:[phone] PREV VISIT, EST, AGE 18-39 [facility], [address], [place], [place], [address], [place] tel:[phone] [facility] Physical (chief complaint) Encntr for general adult medical exam w/o abnormal findings 0 0 Sumanth Palacios. [address], [place], [place], [address] , [place]. [phone] Referring Provider: Vaibhav Esqueda [address], [place], [place], [address]. tel:[phone] OFFICE/OUTPA TIENT VISIT, [facility], [address], [place], [place], [address], [place] tel:[phone] [facility] anxiety1 (chief complaint) weight1 (chief complaint) Abnormal weight gainGeneralized Anxiety Disorder 9 Sumanth Palacios. [address], [place], [place], [address] , [place]. [phone] Referring Provider: Vaibhav Esqueda [address], [place], [place], [address]. tel:[phone] OFFICE/OUTPA TIENT VISIT, [facility], [address], [place], [place], [address], [place] tel:[phone] [facility] weight loss1 (chief complaint) anxiety1 (chief complaint) Abnormal weight lossGeneralized Anxiety Disorder 9 Sumanth Lin [address], [place], [address] , [place]. [phone] Referring Provider: Vaibhav Esqueda [address], [place], [place], [address]. tel:[phone] OFFICE/OUTPA TIENT VISIT, [facility], [address], [place], [place], [address], [place] tel:[phone] [facility] weight loss1 (chief complaint) anxiety1 (chief complaint) Generalized Anxiety DisorderAbnormal weight loss 9 Sumanth Palacios. [address], [place], [place], [address] , [place]. [phone] Referring Provider: Vaibhav Esqueda [address], [place], [place], [address]. tel:[phone] OFFICE/OUTPA TIENT VISIT, [facility], [address], [place], [place], [address], [place] tel:[phone] [facility] fatty liver1 (chief complaint) HLP (chief complaint) MCV (chief complaint) weight loss1 (chief complaint) anxiety1 (chief complaint) HyperlipidemiaAbnor mal weight lossGeneralized Anxiety DisorderFatty liverOther specified disease of bloodHyperglycemia 0 9 Sumanth Palacios. [address], [place], [place], [address] , [place]. tel:[phone] Referring Provider: Vaibhav Esqueda [address], [place], [place], [address]. tel:[phone] OFFICE/OUTPA TIENT VISIT, [facility], [address], [place], [place], [address], [place] tel:[phone] [facility] anxiety1 (chief complaint) LFT (chief complaint) obesity1 (chief complaint) HLP (chief complaint) sleep apnea1 (chief complaint) Liver diseaseHyperlipidem iaSleep apneaGeneralized Anxiety DisorderAbnormal weight gain 9 Sumanth Palacios. [address], [place], [place], [address] , [place]. tel:[phone] Referring Provider: Vaibhav Esqueda [address], [place], [place], [address]. tel:[phone] OFFICE/OUTPA TIENT VISIT, [facility], [address], [place], [place], [address], [place] tel:[phone] [facility] HTN (chief complaint) anxiety1 (chief complaint) LFT (chief complaint) Abnormal weight lossLiver diseaseGeneralized Anxiety Disorder 9 Sumanth Palacios. [address], [place], [place], [address] , [place]. tel:[phone] Referring Provider: Vaibhav Esqueda [address], [place], [place], [address]. tel:[phone] OFFICE/OUTPA TIENT VISIT, [facility], [address], [place], [place], [address], [place] tel:[phone] [facility] weight1 (chief complaint) anxiety1 (chief complaint) lFt (chief complaint) sleep apnea1 (chief complaint) Sleep apneaLiver diseaseGeneralized Anxiety DisorderSecondary polycythemiaHyperli pidemiaAbnormal weight gain 9 Sumanth Palacios. [address], [place], [place], [address] , [place]. tel:[phone] Referring Provider: Vaibhav Esqueda [facility] A, [place], [place], [address]. tel:[phone] OFFICE/OUTPA TIENT VISIT, [facility], [address], [place], [place], [address], [place] tel:[phone] [facility] anxiety1 (chief complaint) weight1 (chief complaint) sleep apnea1 (chief complaint) liver1 (chief complaint) Abnormal weight gainLiver diseaseGeneralized Anxiety DisorderSleep apnea 9 Sumanth Palacios. [address], [place], [place], [address] , [place]. tel:[phone] Referring Provider: Vaibhav Esqu[address], [place], [place], [address]. tel:[phone] OFFICE/OUTPA TIENT VISIT, [facility], [address], [place], [place], [address], [place] tel:[phone] [facility] HLP (chief complaint) LFT (chief complaint) polycythem ia1 (chief complaint) glucose1 (chief complaint) anxiety1 (chief complaint) HyperlipidemiaLiver diseaseHyperglycemi aSecondary polycythemiaGeneral ized Anxiety DisorderAbnormal weight gain 9 Sumanth Lin [address], [place], [place], [address] , [place]. tel:[phone] Referring Provider: Vaibhav Esqueda [address], [place], [place], [address]. tel:[phone] OFFICE/OUTPA TIENT VISIT, EST [facility], [address], [place], [place], [address], [place] tel:[phone] [facility] GI (chief complaint) Viral infection 9 Sumanth Palacios. [address], [place], [place], [address] , [place]. tel:[phone] Referring Provider: Philip Julio, [address], [place], [place], [address]. tel:[phone] OFFICE/OUTPA TIENT VISIT, [facility], [facility] [address], [place], [place], [address], [place] tel:[phone] [facility] weight gain1 (chief complaint) anxiety1 (chief complaint) cough1 (chief complaint) insomnia1 (chief complaint) Acute bronchitisInsomniaG eneralized Anxiety DisorderAbnormal weight gainEssential (primary) hypertension 9 Sumanth Palacios. [address], [place], [place], [address] , [place]. tel:[phone] Referring Provider: Vaibhav Esqueda [address], [place], [place], [address]. tel:[phone] PREV VISIT, EST, AGE 18-39 [facility], [address], [place], [place], [address], [place] tel:[phone] [facility] Physical (chief complaint) Encounter for general adult medical exam w abnormal findingsAbnormal weight gainGeneralized Anxiety DisorderOccult blood in fecesEssential (primary) hypertension 8 Sumanth Palacios. [address], [place], [place], [address] , [place]. tel:[phone] Referring Provider: Vaibhav Esqudea [address], [place], [place], [address]. tel:[phone] OFFICE/OUTPA TIENT VISIT, [facility], [address], [place], [place], [address], [place] tel:[phone] [facility] insomnia1 (chief complaint) anxiety1 (chief complaint) sob1 (chief complaint) Generalized Anxiety DisorderAsthmaInsom niaSleep disorder, unspecified 0 7 Sumanth Palacios. [address], [place], [place], [address] , [place]. tel:[phone] Referring Provider: Philip Julio, [address], [place], [place], [address]. tel:[phone] OFFICE/OUTPA TIENT VISIT, [facility], [address], [place], [place], [address], [place] tel:[phone] [facility] anxiety1 (chief complaint) insomnia1 (chief complaint) InsomniaGeneralized Anxiety Disorder 7 Sumanth Palacios. [address], [place], [place], [address] , [place]. tel:[phone] Referring Provider: Philip Julio [address], [place], [place], [address]. tel:[phone] OFFICE/OUTPA TIENT VISIT, [facility], [address], [place], [place], [address], [place] tel:[phone] [facility] back pain1 (chief complaint) HLP (chief complaint) anxiety1 (chief complaint) insomnia1 (chief complaint) HyperlipidemiaBack painGeneralized Anxiety Disorder 7 Sumanth Palacios. [address], [place], [place], [address] , [place]. tel:[phone] Referring Provider: Vaibhav Esqueda [address], [place], [place], [address]. tel:[phone] OFFICE/OUTPA TIENT VISIT, [facility], [address], [place], [place], [address], [place] tel:[phone] [facility] anxiety1 (chief complaint) insomnia1 (chief complaint) marijauna1 (chief complaint) weight loss1 (chief complaint) InsomniaGeneralized Anxiety DisorderCannabis abuse, uncomplicatedAbnorm al weight loss 7 Sumanth Palacios. [address], [place], [place], [address] , [place]. tel:[phone] Referring Provider: Vaibhav Esqueda [address], [place], [place], [address]. tel:[phone] OFFICE/OUTPA TIENT VISIT, [facility], [address], [place], [place], [address], [place] tel:[phone] [facility] anxiety1 (chief complaint) insomnia1 (chief complaint) HLP (chief complaint) Generalized Anxiety DisorderHyperlipide miaInsomniaBody mass index (BMI) 32.0-32.9, adult Fe 7 Sumanth Lin [address], [place], [place], [address] , [place]. tel:[phone] Referring Provider: Vaibhav Esqueda [address], [place], [place], [address]. tel:[phone] OFFICE/OUTPA TIENT VISIT, [facility], [address], [place], [place], [address], [place] tel:[phone] [facility] anxiety1 (chief complaint) insomnia1 (chief complaint) obesity1 (chief complaint) Generalized Anxiety DisorderBody mass index (BMI) 33.0-33.9, adultInsomnia 7 Sumanth Lin [address], [place], [place], [address] , [place]. tel:[phone] Referring Provider: Vaibhav Esqueda [address], [place], [place], [address]. tel:[phone] OFFICE/OUTPA TIENT VISIT, [facility], [address], [place], [place], [address], [place] tel:[phone] [facility] HLP (chief complaint) MCV (chief complaint) toothache1 (chief complaint) anxiety1 (chief complaint) HyperlipidemiaAtypi jaguar facial painOther specified disease of bloodInsomnia 0 6 Sumanth Palacios. [address], [place], [place], [address] , [place]. tel:[phone] Referring Provider: Vaibhav Esqueda [address], [place], [place], [address]. tel:[phone] PREV VISIT, EST, AGE 18-39 [facility], [address], [place], [place], [address], [place] tel:[phone] [facility] PHysical (chief complaint) Encounter for general adult medical exam w abnormal findingsGeneralized anxiety disorderInsomnia 6 Sumanth Palacios. [address], [place], [place], [address] , [place]. tel:[phone] Referring Provider: Vaibhav Esqueda [address] [facility] A, [place], [place], [address]. tel:[phone] OFFICE/OUTPA TIENT VISIT, EST [facility], [address], [place], [place], [address], [place] tel:[phone] [facility] anxiety1 (chief complaint) hematuria1 (chief complaint) HTN (chief complaint) insomnia1 (chief complaint) Essential (primary) hypertensionHematur ia, unspecifiedGenerali zed anxiety disorderInsomnia 6 Sumanth Lin [address], [place], [place], [address] , [place]. tel:[phone] Referring Provider: Vaibhav Esqueda [address], [place], [place], [address]. tel:[phone] OFFICE/OUTPA TIENT VISIT, EST [facility], [address] [place], [address], [place] tel:[phone] [facility] shoulder pain1 (chief complaint) hematuria (chief complaint) anxiety1 (chief complaint) HematuriaGeneralize d anxiety disorderPain in rt shoulder 6 Sumanth Lin [address], [place], [place], [address] , [place]. tel:[phone] Referring Provider: Philip Julio, [address], [place], [place], [address]. tel:[phone] OFFICE/OUTPA TIENT VISIT, [facility], [address], [place], [address], [place] tel:[phone] [facility] anxiety1 (chief complaint) insomnia1 (chief complaint) Generalized anxiety disorderOther insomnia 0 6 Sumanth Palacios. [address], [place], [place], [address] , [place]. tel:[phone] Referring Provider: Vaibhav Esqueda [address], [place], [place], [address]. tel:[phone] OFFICE/OUTPA TIENT VISIT, [facility], [address], [place], [place], [address], [place] tel:[phone] [facility] Anxiety1 (chief complaint) insomnia1 (chief complaint) fatigue1 (chief complaint) Other insomniaOther fatigueGeneralized anxiety disorder 8 5 Sumanth Palacios. [address], [place], [place], [address] , [place]. tel:[phone] Referring Provider: Vaibhav Esqueda [address], [place], [place], [address]. tel:[phone] OFFICE/OUTPA TIENT VISIT, [facility], [address], [place], [place], [address], [place] tel:[phone] [facility] chest pain1 (chief complaint) anxiety1 (chief complaint) Generalized anxiety disorderHematuria 7 5 Sumanth Palacios. [address], [place], [place], [address] , [place]. tel:[phone] Referring Provider: Vaibhav Esqueda [address], [place], [place], [address]. tel:[phone] OFFICE/OUTPA TIENT VISIT, [facility], [address], [place], [place], [address], [place] tel:[phone] [facility] Anxiety (chief complaint) HLP (chief complaint) hematuria (chief complaint) chest pain (chief complaint) Dietary surveillance and counselingGeneraliz ed anxiety disorderHematuriaHy perlipidemiaChest pain 5 Sumanth Palacios. [address], [place], [place], [address] , [place]. tel:[phone] Referring Provider: Vaibhav Esqueda [address], [place], [place], [address]. tel:[phone] PREV VISIT, EST, AGE 18-39 [facility], [address], [place], [place], [address], [place] tel:[phone] [facility] PHysical (chief complaint) Routine medical examDietary surveillance and counseling 5 Sumanth Palacios. [address], [place], [place], [address] , [place]. tel:[phone] Referring Provider: Vaibahv Esqueda [address], [place], [place], [address]. tel:[phone] OFFICE/OUTPA TIENT VISIT, EST [facility], [address], [place], [address], [place] tel:[phone] [facility] rectal bleeding (chief complaint) anxiety (chief complaint) HTN (chief complaint) HLP (chief complaint) Unspecified essential hypertensionOther and unspecified hyperlipidemiaGener alized anxiety disorderRectal bleedingDietary surveillance and counseling 5 Sumanth Palacios. [address], [place], [place], [address] , [place]. tel:[phone] Referring Provider: Vaibhav Esqueda [address], [place], [place], [address]. tel:[phone] OFFICE/OUTPA TIENT VISIT, EST [facility], [address], [place], [place], [address], [place] tel:[phone] [facility] anxiety (chief complaint) alcohol (chief complaint) Generalized anxiety disorderAlcohol dependence in remission Flash- 3-201 5 Sumanth Palacios. [address], [place], [place], [address] , [place]. tel:[phone] Referring Provider: Vaibhav Esqueda [address], [place], [place], [address]. tel:[phone] OFFICE/OUTPA TIENT VISIT, [facility], [address], [place], [place], [address], [place] tel:[phone] [facility] anxiety (chief complaint) alcohol (chief complaint) Generalized anxiety disorderDepression May-0 6- 5 Sumanth Palacios. [address], [place], [place], [address] , [place]. tel:[phone] Referring Provider: Vaibhav Esqueda [address], [place], [place], [address]. tel:[phone] OFFICE/OUTPA TIENT VISIT, [facility], [address], [place], [place], [address], [place] tel:[phone] [facility] anxiety (chief complaint) HTN (chief complaint) Dietary surveillance and counselingDepressio nGeneralized anxiety disorder Apr-0 6 5 Sumanth Palacios. [address], [place], [place], [address] , [place]. tel:[phone] Referring Provider: Vaibhav Esqueda [address], [place], [place], [address]. tel:[phone] OFFICE/OUTPA TIENT VISIT, [facility], [address], [place], [place], [address], [place] tel:[phone] [facility] anxiety (chief complaint) alcohol (chief complaint) Dietary surveillance and counselingSedative, hypnotic or anxiolytic dependence, unspecifiedOther and unspecified alcohol dependence, episodic drinking behavior Mar-0 9-201 5 Sumanth Palacios. [address], [place], [place], [address] , [place]. tel:[phone] Referring Provider: Vaibhav Esqueda [address], [place], [place], [address]. tel:[phone] OFFICE/OUTPA TIENT VISIT, [facility], [address], [place], [place], [address], [place] tel:[phone] [facility] sick (chief complaint) cardiomyop athy (chief complaint) alcohol (chief complaint) anxiety (chief complaint) Dietary surveillance and counselingOther and unspecified diseases of upper respiratory tractCardiomyopathy , Other PrimaryOther and unspecified alcohol dependence, episodic drinking behaviorGeneralized anxiety disorder 5 Sumanth Palacios. [address], [place], [place], [address] , [place]. [phone] Referring Provider: Vaibhav Esqueda [address],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
--- OUTSIDE RECORDS SUMMARY | 2025-01-01 15:28 | XMS_ITS | Clinical Summary ---
Author Organization [facility] Address [address] [place] [address] Care Team Providers Care Manager State Name Role Phone Unavailable Primary Care Provider Unavailabl e Source Comments [facility],non-owned Affiliates and Associated Physician Practices is amultiple site organization consisting of ambulatory clinics and hospital sitesin [place], [place]. This disclosure is being madepursuant to the Care Everywhere program and may not contain all information available regarding this patient. 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
--- OUTSIDE RECORDS SUMMARY | 2025-01-01 15:28 | XMS_ITS | Referral Summary ---
Author Organization [address] Address [address] [place] [phone] Care Team Providers Care English Faculty Member Name Role Phone Awilda Ramires MD Unavailable [phone] Eren Fry MD Primary Care Provider [phone] Lui Oliva MD Unavailable Encounters Date Type Department Care Team Description 11/27/2024 9:49 AM CDT - 11/29/2024 9:01 AM CDT Hospital Encounter [facility] Medical Care 1 [place] [address] Sam Estrada MD Petters, Ekanga Sunday, MD Fasick, Victoria Rose, Alcohol withdrawal syndrome without complication (HCC) (Primary Dx); Alcoholic ketoacidosis; Elevated lactic acid level; Elevated blood sugar; Colitis Discharge Disposition: Left Against Medical Advice 11/28/2024 AMH WH Enrollment [facility] Warm Hand Off Program 1 [place], [place] [phone] Sheela Sparks 11/27/2024 Documentation [facility] Warm Hand Off Program 1 [place], [place] [phone] Sheela Sparks 11/24/2024 Telephone [facility] Surgery [address] [place] [address] Floor 5 [place] [address] Morelia Garza BS Cancel (11/24/24 surgery ) 11/04/2024 11:59 PM CDT Anesthesia Event [facility] Operating Room [address] [phone] Mohan Durand NP 11/21/2024 Telephone [facility] Surgery [address] Floor 5 [place] [address] Kaylin Briceño, RMA 11/20/2024 Telephone [facility] Surgery [address] Floor 5 [place] [phone] Shanon Blount, RMA Procedure 11/19/2024 Telephone [facility] Surgery [facility] [facility] Floor 5 [place] [phone] Shanon Blount, RMA Surgery Confirmation 11/04/2024 Telephone [facility] Surgery [address] [place] [address] Medical Office Building 4 [address] [place] [phone] Jennifer Angel RN 11/04/2024 9:39 AM CDT - 11/04/2024 11:59 PM CDT Hospital Encounter [facility] ([facility]) [address] [place] [phone] Discharge Disposition: Discharge to home or self care 11/04/2024 8:52 AM CDT - 11/04/2024 11:59 PM CDT Hospital Encounter [facility] ([facility]) [address] [place] [address] Discharge Disposition: Discharge to home or self care 11/04/2024 8:50 AM CDT - 11/04/2024 11:59 PM CDT Hospital Encounter [facility] ([facility]) [address] [place] [address] Discharge Disposition: Discharge to home or self care 11/04/2024 Orders Only [facility] Surgery [facility] Floor 5 [place] [phone] Robert Martinez MD 11/04/2024 8:49 AM CDT - 11/04/2024 11:59 PM CDT Hospital Encounter [facility] ([facility]) [address] [place] [address] Discharge Disposition: Discharge to home or self care 10/31/2024 3:00 PM CDT Office Visit [facility] Surgery [address] [place] [address] [place] [address] Lui Oliva MD Anal fistula (Primary Dx); Fistula from Last 3 Months Allergies No known active allergies Medications traZODone [...] NOS Hypertension 11/08/2013 Overview (09/29/2016): HYPERTENSION NOS Social History Tobacco Use Types Packs/Day Years Used Date Smoking Tobacco: Never Passive Smoke Exposure: Past Smokeless Tobacco: Never Tobacco Cessation:Counseling Given: Not Answered [facility] Utilities Answer Date Recorded In the past 12 months has [employer], gas, oil, or water [employer] threatened to shut off services in your [...] often do you attend chur ch or adventism services? Never 11/28/2024 Do you belong to any clubs o r organizations such as faith groups, unions, fraternal or athletic groups, or [...] any time in the past 12 m [facility], were you homeless or living in a [place] health care facility (including now)? No 11/28/2024 Personal Safety Answer Date Recorded Have you ever been in or are you currently in a harmful physical or emotional relationship or is someone making you feel afraid or unsafe? 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 Gender Identity Not on file Sexual Orientation Not on file Last Filed Vital Signs Vital Sign Reading [...] Description 01/23/2025 7:30 AM CDT Hospital Encounter [facility] Surgery at [facility] [address] [place] [address] Lui Oliva MD [address] [facility] [phone] [place] [address] 01/23/2025 7:30 AM CDT - 01/23/2025 8:00 AM CDT Surgery [facility] at [facility] [address] [place] [address] Lui Oliva MD [address] [facility] [phone] [place] [address] EXAM UNDER ANESTHESIA - RECTUM Scheduled Procedures Name Priority Associated Diagnoses Date/Ti me EXAM UNDER ANESTHESIA - RECTUM Anal fistula 01/23/2025 7:30 AM CDT ANAL FISTULOTOMY Anal fistula 01/23/2025 7:30 AM CDT PLACEMENT SETON Anal fistula 01/23/2025 7:30 AM CDT Goals Goal Patient Goal Type Associated Problems [...] AM CDT 11/29/2024 5:19 AM CDT Gwen James Mansoor DO LAB BLOOD ORDERABLES Fin al Result Performing Organization Address [facility] Co de Phone Number ZAID TREVINO (BELLEROSE) 1 [facility] [employer] [place] [address] * eGFR (11/29/2024 5:15 AM CDT) eGFR [...] BLOOD ORDERABLES Fin al Result ZAID TREVINO (BELLEROSE) 1 [facility] [place] [address] * Differential, auto (11/29/2024 5:15 AM CDT) Neutrophil abs 4.03 1.50 - 6.50 K/cumm Imm gran abs 0.03 0.00 - 0.10 K/cumm [facility] (SPENCER) Lymphocyte abs 2.05 0.80 - [...] Fin al Result [facility] (SPENCER) 1 [facility] Department [place] [address] * CBC with auto differential (11/29/2024 5:15 [...] (SPENCER) MCHC 35.1 32.3 - 35.7 g/dL [facility] (SPENCER) RDW CV 12.8 11.1 - 14.9 % [facility] (SPENCER) RDW SD 44.2 35.7 - 48.1 fL [facility] (SPENCER) NRBC abs 0.00 0.00 - 0.01 K/cumm [facility] (SPENCER) Blood 11/29/2024 5:15 AM CDT 11/29/2024 5:19 AM CDT Gwen Max DO LAB BLOOD ORDERABLES Fin al Result ZAID TREVINO (SPENCER) 1 [facility] Department [place] [address] * Phosphorus (11/29/2024 5:15 AM CDT) Phosphorus, pl 3.3 2.3 - 4.5 mg/dL Blood 11/29/2024 5:15 AM CDT 11/29/2024 5:19 AM CDT [employer] LAB BLOOD ORDERABLES Fin al Result ZAID TREVINO (SPENCER) 1 [facility] [place] [address] * Magnesium (11/29/2024 5:15 AM CDT) Magnesium 1.8 1.4 - 2.5 mg/dL Blood 11/29/2024 5:15 AM CDT 11/29/2024 5:19 AM CDT Gwen Erika [employer] LAB BLOOD ORDERABLES Fin al Result Performing Organization Address [facility] de Phone Number ZAID TREVINO (SPENCER) 1 [facility] [place] [address] * (ABNORMAL) Comprehensive metabolic panel (11/29/2024 5:15 [...] CDT Gwen Max DO LAB BLOOD ORDERABLES [facility] al Result [facility] (SPENCER) 1 [facility] Department [place] [address] * CTA Abdomen Pelvis (11/28/2024 9:16 PM [...] Parmjit Flor M.D. REBEKAH: REBEKAH Report ID: [id number] Reading Location: [id number] Procedure Note Parmjit Flor MD - 11/29/2024 [...] Parmjit Flor M.D. REBEKAH: REBEKAH Report ID: [id number] Reading Location: [id number] Gwen Max DO IMG CT PROCEDURES Final Result * Sepsis Lactate w/ Reflex (11/28/2024 6:14 PM CDT) Sepsis Lactate 1.8 0.7 - 2.0 mmol/L Blood 11/28/2024 6:14 PM CDT 11/28/2024 6:17 PM CDT Gwen Max DO LAB BLOOD ORDERABLES Fin al Result [facility] ([place]) 1 [facility] [place] [address] * Erythrocyte sedimentation rate (11/28/2024 6:14 PM CDT) Pathologist [facility] Erythrocyte sedimentation rate 9 1 - 20 mm/hr Blood 11/28/2024 6:14 PM CDT 11/28/2024 6:17 PM CDT Gwen Max [employer] LAB BLOOD ORDERABLES Fin al Result Performing Organization Address [facility] Co de Phone Number [facility] ([place]) 1 [facility] [place] [address] * (ABNORMAL) Lactate (11/28/2024 9:37 AM CDT) Pathologist [facility] Lactate 4.6(C) 0.7 - 2.0 mmol/L Comment:Critical result call ed to and read back by Louisa Bryant rn ([facility]) on 11/28/2024 09:50:27 CDT to trang alberts. Blood 11/28/2024 9:37 AM CDT 11/28/2024 9:44 AM CDT Gwen [employer] DO LAB BLOOD ORDERABLES Fin al Result Performing Organization Address City/[facility]/ZIP Co de Phone Number [facility] SPENCER) 1 [facility] [place] [address] * eGFR (11/28/2024 9:37 AM CDT) eGFR [...] Inclusion of Race in Diagnosing Kidney Disease, SN 2020). The CKD-EPI equation should not be used for patients with unstable renal function and has not been validated in children and those over 70. Current interpretive data was last reviewed 2021. Blood 11/28/2024 9:37 AM CDT 11/28/2024 9:44 AM CDT Gwen Max DO LAB BLOOD ORDERABLES Fin al Result [facility] (SPENCER) 1 [facility] Department [place] [address] * Procalcitonin (11/28/2024 9:37 AM CDT) Procalcitonin <0.05 <=0.25 ng/mL Comment:Testing performed by : [facility], [address] [facility], [place]., [address] Blood 11/28/2024 9:37 AM CDT 11/29/2024 2:25 PM CDT Gwen Max DO LAB BLOOD ORDERABLES Fin al Result ZAID TREVINO ([place]LLEROSE) 1 [place] [address] * CRP (acute phase) (11/28/2024 9:37 AM CDT) Pathologist [facility] CRP 6.9 <=10.0 mg/L Blood 11/28/2024 9:37 AM CDT 11/28/2024 4:35 PM CDT Gwen Max DO LAB BLOOD ORDERABLES Fin al Result Performing Organization Address [facility] de Phone Number ZAID TREVINO (BELLEROSE) 1 [place] [address] * (ABNORMAL) Phosphorus (11/28/2024 9:37 AM CDT) Pathologist [facility] Phosphorus, pl 1.7(L) 2.3 - 4.5 mg/dL Blood 11/28/2024 9:37 AM CDT 11/28/2024 9:44 AM CDT Gwen Max DO LAB BLOOD ORDERABLES Fin al Result Performing Organization Address [facility] de Phone Number ZAID TREVINO (BELLEROSE) 1 [facility] [place] [address] * Magnesium (11/28/2024 9:37 AM CDT) [facility] Magnesium 1.7 1.4 - 2.5 mg/dL Blood 11/28/2024 9:37 AM CDT 11/28/2024 9:44 AM CDT Gwen Max DO LAB BLOOD ORDERABLES Fin al Result ZAID TREVINO ([place]ER[place]) 1 [place] [address] * (ABNORMAL) Comprehensive metabolic panel (11/28/2024 9:37 AM CDT) Sodium 131(L) 135 - 145 mmol/L Potassium, pl 3.3 3.3 - 4.9 mmol/L [facility] (SPENCER) Chloride 90(L) 97 - 110 mmol/L [facility] (SPENCER) [...] 9:37 AM CDT 11/28/2024 9:44 AM CDT us Gwen Max DO LAB BLOOD ORDERABLES Fin al Result [facility] (SPENCER) 1 [facility] Department [place] [address] * eGFR (11/28/2024 4:42 AM CDT) eGFR [...] 4:42 AM CDT 11/28/2024 4:54 AM CDT Kaylin MONZON LAB BLOOD ORDERABLES Pam vincent Result [facility] (BELLER[place]) 1 [facility] Department [place] [address] * (ABNORMAL) Differential, auto (11/28/2024 4:42 AM [...] Neutrophil pct 66.4 % [facility] (SPENCER) Comment: Interpretive [...] 4:42 AM CDT 11/28/2024 4:53 AM CDT us Kaylin MONZON LAB BLOOD ORDERABLES Pam vincent Result ZAID TREVINO (SPENCER) 1 [facility] Department [place] [address] * (ABNORMAL) CBC with auto differential (11/28/2024 [...] 4:42 AM CDT 11/28/2024 4:53 AM CDT us Kaylin MONZON LAB BLOOD ORDERABLES Pam l Result ZAID TREVINO (SPENCER) 1 [facility] [employer] [place] [address] * Magnesium (11/28/2024 4:42 AM CDT) Magnesium 1.8 1.4 - 2.5 mg/dL Blood 11/28/2024 4:42 AM CDT 11/28/2024 4:54 AM CDT us Param Crespo MD LAB BLOOD ORDERABLES Fi nal Result ZAID [facility] (SPENCER) 1 [facility] [employer] [place] [address] * (ABNORMAL) Comprehensive metabolic panel (11/28/2024 4:42 AM CDT) Sodium 136 135 - 145 mmol/L Potassium, pl 2.9(C) 3.3 - 4.9 mmol/L [facility] (SPENCER) Comment:Critical Result call ed by [id number] at 2024-11-28 05:35:10. Result Read Back by Willa Viera U Chloride 95(L) 97 - 110 mmol/L [facility] (SPENCER) CO2 25 22 - 32 mmol/L [facility] (SPENCER) Anion gap 16(H) 2 - 15 mmol/L [facility] (SPENCER) BUN 5(L) 6 - 25 mg/dL [facility] (SPENCER) Creatinine 0.57(L) 0.60 - 1.10 mg/dL [facility] (SPENCER) Glucose 124 70 - 199 mg/dL [facility] (SPENCER) [...] LAB BLOOD ORDERABLES Pam melisa Result ZAID TREVINO (BELLEROSE) 1 [facility] Department [place] [address] * CT Chest PE (CTA) Abdomen Pelvis [...] by Gregory Pablo M.D. JR: Report ID: [id number] Reading Location: [id number] Procedure Note Gregory Pablo MD - 11/27/2024 [...] by Gregory Pablo M.D. JR: Report ID: [id number] Reading Location: [place] [address] PROCEDURES Final R esult * (ABNORMAL) Sepsis Lactate w/ Reflex (11/27/2024 7:28 PM CDT) Pathologist [facility] Sepsis Lactate 2.7(H) 0.7 - 2.0 mmol/L Blood 11/27/2024 7:28 PM CDT 11/27/2024 7:31 PM CDT Sam Estrada MD LAB BLOOD ORDERABLE S Final Result [facility] [place] 1 [facility] Department [place] [address] * Ethanol (11/27/2024 6:09 PM CDT) Ethanol <10 <=10 mg/dL Comment: Interpretive Data Legal limit of intoxication > or = 80 mg/dL Levels > or = 400 mg/dL are potentially TOXIC. Current interpretive data was last revised on 2018. Blood 11/27/2024 6:09 PM CDT 11/27/2024 6:12 PM CDT Kaylin MONZON LAB BLOOD ORDERABLES Pam melisa Result ZAID TREVINO (SPENCER) 1 [facility] Department [place] [address] * (ABNORMAL) Drugs of Abuse Screen, Urine without Confirmation (11/27/2024 6:08 PM CDT) Amphetamine, ur Not Detected CutOff 500ng/mL Comment: Interpretive Data - Amphetamines: Samples containing greater than 500 ng/mL d-methamphetamine or other cross-reacting amphetamine compounds are reported as positive. Amphetamine immunoassays are subject to significant false positive rates due to cross-reactivity of non-amphetamine drugs. Confirmatory testing required for definitive results. Current Interpretive Data was last reviewed 2023. Barbiturates, ur Screen Positive, presumptive (A) CutOff 200ng/mL [facility] (SPENCER) Comment: Interpretive Data - Barbiturates: [...] 2023. Opiates, ur Not Detected CutOff 300ng/mL [facility] (SPENCER) Comment: Interpretive Data - Opiates: Samples containing greater than 300 ng/mL morphine or other cross-reacting compounds are reported as positive. False positive and false negative results are possible. Confirmatory testing required for definitive results. Current Interpretive Data was last reviewed 2023. Oxycodone, ur Not Detected CutOff 100ng/mL [facility] (SPENCER) Comment: Interpretive Data - Oxycodone: Samples containing greater than 100 ng/mL oxycodone or other cross-reacting compounds are reported as positive. False positive and false negative results are possible. Confirmatory testing required for definitive results. Current Interpretive Data was last reviewed 2023. Phencyclidine, ur Not Detected CutOff 25 ng/mL [facility] (SPENCER) Comment: Interpretive Data - Phencyclidine: Samples containing greater than 25 ng/mL phencyclidine or other cross-reacting compounds are reported as positive. False positive and false negative results are possible. Confirmatory testing required for definitive results. Current Interpretive Data was last reviewed 2023. Urine Creatinine 64 mg/dL [facility] (SPENCER) Comment: Interpretive Data Urine Creatinine: < 10 mg/dL is extremely dilute = or > 10 but < 20 mg/dL is dilute = or > 20 mg/dL is normal Current Interpretive Data was last revised on 2017. Urine 11/27/2024 6:08 PM CDT 11/27/2024 6:14 PM CDT Narrative ZAID TREVINO (BELLEROSE) - 11/27/2024 6:53 PM CDT Drug of Abuse screening is performed by immunoassay for medical purposes only. This is not to be used for Pain Management purposes. us Kaylin MONZON LAB URINE ORDERABLES Pam l Result Performing Organization Address City/[facility]/ZIP Co de Phone Number ZAID [facility] (BELLEROSE) 1 [facility] [employer] [place] [address] * (ABNORMAL) Sepsis Lactate w/ Reflex (11/27/2024 4:32 PM CDT) Sepsis Lactate 4.4(C) 0.7 - 2.0 mmol/L Comment:Critical result call ed to and read back by Jenna Segura(er) on 11/27/2024 16:52:43 CDT to Kathleen Caputo. Blood 11/27/2024 4:32 PM CDT 11/27/2024 4:51 PM CDT us Sam Estrada MD LAB BLOOD ORDERABLE S Final Result Performing Organization Address [facility]/ZIP Co de Phone Number ZAID [facility] ([place]) 1 [facility] [place] [address] * Blood culture Blood Peripheral (11/27/2024 2:53 PM CDT) Report Final Report: No growth Comment:Testing performed by : [facility], [address] [facility] [place]., [address] Blood (Peripheral) 11/27/2024 2:53 PM CDT 11/27/2024 6:45 PM CDT Narrative ZAID TREVINO (BELLEROSE) - 12/02/2024 7:01 AM CDT From a [...] performance characteristics have been verified by the [facility] Microbiology Laboratory. For questions about this culture, contact the Microbiology Laboratory at [phone]. Interpretive data was last revised on 24. us Sam Estrada MD LAB MICROBIOLOGY - GENERAL ORDERABLES Final Result ZAID TREVINO (SPENCER) 1 [facility] Department [place] [address] * Blood culture Blood Peripheral (11/27/2024 2:53 PM CDT) Report Final Report: No growth Comment:Testing performed by : [facility], [address] [facility]., [address] Blood (Peripheral) 11/27/2024 2:53 PM CDT 11/27/2024 6:46 PM CDT Narrative ZAID CARL) - 12/02/2024 7:01 AM CDT Draw Blood [...] performance characteristics have been verified by the [facility]biology [facility]. For questions about this culture, contact the Microbiology Laboratory at [phone]. Interpretive data was last revised on 24. Sam Estrada MD LAB MICROBIOLOGY - GENERAL ORDERABLES Final Result [facility] [place] 1 [facility] Department of Laboratories [place], [place] [address] * XR Chest 1 View (11/27/2024 1:58 [...] Jayce Cano M.D. MM: MM Report ID: [id number] Reading Location: [id number] Procedure Note Jayce Cano MD - 11/27/2024 [...] Jayce Cano M.D. MM: MM Report ID: [id number] Reading Location: [id number] Sam Estrada MD IMG XR PROCEDURES F inal Result * (ABNORMAL) Urinalysis reflex to microscopic and culture Urine (11/27/2024 1:25 PM CDT) Color, ur Yellow Yellow Clarity, ur Clear Clear [facility] (SPENCER) Specific gravity, ur 1.018 1.003 [...] tendency for uric acid stone formation. Source: [facility] [employer] [employer] Current Interpretive Data was last revised on 2017 Protein, ur ql Negative Negative [facility] (SPENCER) Glucose, ur ql Negative Negative [facility] (SPENCER) Ketones, ur 1+(A) Negative [facility] A (SPENCER) Bilirubin, ur Negative Negative [facility] (SPENCER) Blood, ur Negative Negative [facility] (SPENCER) Urobilinogen, ur <2.0 <2.0 mg/dL [facility] (SPENCER) Nitrite, ur Negative Negative [facility] (SPENCER) Leukocyte esterase, ur Negative Negative [facility] (SPENCER) UA reflex comment Reflex conditions for microscopic UA and culture not met. [facility] (SPENCER) Urine 11/27/2024 1:25 PM CDT 11/27/2024 5:57 PM CDT us Sam Estrada MD LAB MICROBIOLOGY - GENERAL ORDERABLES Final Result [facility] (SPENCER) 1 [facility] Department of Laboratories [place], [place] [id number] * (ABNORMAL) Sepsis Lactate w/ Reflex (11/27/2024 12:58 PM CDT) Sepsis Lactate 8.2(C) 0.7 - 2.0 mmol/L Comment:Critical result call ed to and read back by Connor De Dios RN (ER) on 11/27/2024 13:05:20 CDT to Rose Marie Bryant. Blood 11/27/2024 12:5 8 PM CDT 11/27/2024 1:01 PM CDT us Sam Estrada MD LAB BLOOD ORDERABLE S Final Result Performing Organization Address City/[facility]/ZIP Co de Phone Number ZAID TREVINO (BELLEROSE) 1 [facility] [place] [address] * eGFR (11/27/2024 12:58 PM CDT) eGFR >90 >=60 mL/min/1. 73 m2 [...] BLOOD ORDERABLE S Final Result ZAID TREVINO (BELLEROSE) 1 [facility] [place] [address] * (ABNORMAL) Basic metabolic panel (11/27/2024 12:58 PM CDT) Sodium 134(L) 135 - 145 mmol/L Potassium, pl 3.6 3.3 - 4.9 mmol/L [facility] (SPENCER) Chloride 92(L) 97 - 110 mmol/L [facility] (SPENCER) CO2 22 22 - 32 mmol/L [facility] ([facility]) Anion gap 20(H) 2 - 15 mmol/L [facility] ([facility]) BUN 12 6 - 25 mg/dL [facility] (SPENCER) Creatinine 0.57(L) 0.60 - 1.10 mg/dL [facility] (SPENCER) Glucose 93 70 - 199 mg/dL [facility] (SPENCER) Comment: Interpretive Data Fasting glucose [...] 2022. Calcium 8.6 8.5 - 10.3 mg/dL [facility] (PSENCER) Blood 11/27/2024 12:5 8 PM CDT 11/27/2024 1:01 PM CDT us Sam Estrada MD LAB BLOOD ORDERABLE S Final Result ZAID [facility] (SPENCER) 1 [facility] Department [place] [address] * hCG, blood, quantitative (11/27/2024 12:57 PM [...] BLOOD ORDERABLE S Edited Result - Final ZAID TREVINO (BELLEROSE) 1 [facility] [place] [address] * (ABNORMAL) Blood gas, venous (11/27/2024 12:57 PM CDT) pH, Venous 7.45(H) 7.32 - 7.43 PCO2, Venous 35(L) 40 - 50 mmHg [facility] ([place]LLER[place]) PO2, Venous 71 mmHg [facility] A (BELLEROSE) Comment: Interpretive Data No reference range established. Current interpretive data was last revised 2017. HCO3 Venous, Calculated 24 20 - 30 mmol/L [facility] ([place]LLER[place]) BE, venous 1 mmol/L [facility] (BELLEROSE) Comment: Interpretive Data No Reference Range Established Current Interpretive Data was last revised on 2017. Blood 11/27/2024 12:5 7 PM CDT 11/27/2024 1:19 PM CDT us Sam Estrada MD LAB BLOOD ORDERABLE S Final Result Performing Organization Address City/[facility]/ZIP Co de Phone Number ZAID TREVINO (BELLEROSE) 1 [facility] [employer] [place] [address] * POCT glucose (11/27/2024 11:56 AM CDT) Glucose, POC 116 70 - 199 mg/dL Blood 11/27/2024 11:5 6 AM CDT 11/27/2024 11:56 AM CDT Sam Estrada MD LAB POCT ORDERABLES - DEVICE Final Result ZAID TREVINO ([place]LLER[place]) 1 [facility] [employer] [place] [address] * ECG 12 lead (11/27/2024 10:17 AM CDT) 11/27/2024 10:1 7 AM CDT Narrative [facility] - 11/27/2024 11:43 AM CDT Vent Rate: 136 bpm RR Interval: 440 msec UT Interval: 139 msec QRS Duration: 86 msec QT Interval: 330 msec QTC Interval: 410 msec P-R-T Edmond: 34 - 30 - 10 degrees IMPRESSION: SINUS TACHYCARDIA NONSPECIFIC ST \T\ T-WAVE ABNORMALITY ABNORMAL RHYTHM ECG Electronically Signed By: Peewee Connors MD us Sam Estrada MD ECG ORDERABLES Fin al Result Performing Organization Address City/[facility]/ZIP Co de Phone Number [facility] * eGFR (11/27/2024 9:53 AM CDT) eGFR [...] MD LAB BLOOD ORDERABLE S Final Result [facility] ([facility]) [address] Department [place] [address] * Beta-hydroxybutyrate (11/27/2024 9:53 AM CDT) [facility] Beta-Hydroxybut yrate 0.3 <=0.5 mmol/L Comment:Testing performed by : [facility], [address] [place] [address], [place]., [address] Blood 11/27/2024 9:53 AM CDT 11/27/2024 3:34 PM CDT us Sam Estrada MD LAB BLOOD ORDERABLE S Final Result [facility] ([facility]) 1 [facility] Department [place] [address] * (ABNORMAL) CBC with auto differential (11/27/2024 9:53 AM CDT) [facility] WBC 9.79 3.80 - 9.90 K/cumm Hgb [...] S Final Result ZAID TREVINO (SPENCER) 1 [facility] Department [place] [address] * (ABNORMAL) Manual Differential (11/27/2024 9:53 AM CDT) Differential Manual Cells Counted 100 [facility] [...] revised on 2017. Monocyte pct 1.0 % [facility] ([facility]) Comment: Interpretive Data Percent cell count reference ranges are not reported, since discordance with absolute values may lead to misinterpretation of CBC data. Current Interpretive Data was last revised on 2017. Basophil pct 1.0 % [facility] ([facility]) Comment: Interpretive Data Percent cell count reference ranges are not reported, since discordance with absolute values may lead to misinterpretation of CBC data. Current Interpretive Data was last revised on 2017. Metamyelocyte pct 1.0(H) 0.0 - 0.0 % [facility] ([facility]) Variant lymph pct 1.0(H) 0.0 - 0.0 % [facility] ([place]) RBC morphology Consistent with RBC Indicies [facility] (SPENCER) Platelet estimate Adequate CE ZOFIA T[facility] ([place]) Blood 11/27/2024 9:53 AM CDT 11/27/2024 10:03 AM CDT us Sam Estrada MD LAB BLOOD ORDERABLE S Final Result Performing Organization Address City/[facility] Co de Phone Number [facility] T[facility] ([place]) 1 [facility] [place] [address] * Protime-INR (11/27/2024 9:53 AM CDT) PT 12.3 9.7 - 13.0 sec [facility] ([place]) INR 1.14 0.90 - 1.20 [facility] ([place]) Comment: Interpretive data Oral anticoagulant therapeutic ranges: Venous thromboembolism prophylaxis or treatment: 2.0-3.0 CARDIOLOGY Standard range: 2.0-3.0 High-intensity range: 2.5-3.5 Refer to indication-specific guidelines for appropriate target ranges for prosthetic heart valve replacement. Current interpretive data was last revised on 2019. Blood 11/27/2024 9:53 AM CDT 11/27/2024 10:03 AM CDT us Sam Estrada MD LAB BLOOD ORDERABLE S Final Result Performing Organization Address City/[facility] Co de Phone Number ZAID TREVINO ([place]) 1 [facility] [employer] [place] [address] * Magnesium (11/27/2024 9:53 AM CDT) Magnesium 1.4 1.4 - 2.5 mg/dL Blood 11/27/2024 9:53 AM CDT 11/27/2024 10:03 AM CDT Sam Estrada MD LAB BLOOD ORDERABLE S Final Result Performing Organization Address City/[facility]/ZIP Co de Phone Number [facility] TREV[facility] (SPENCER) [address] [place] [address] * Lipase (11/27/2024 9:53 AM CDT) Pathologist [facility] Lipase 12 10 - 99 Units/L Blood 11/27/2024 9:53 AM CDT 11/27/2024 10:07 AM CDT Sam Estrada MD LAB BLOOD ORDERABLE S Final Result Performing Organization Address [facility] de Phone Number [facility] TREVINO (SPENCER) [address] [place] [address] * Hemoglobin A1c (11/27/2024 9:53 AM CDT) [facility] Hgb A1C 5.6 4.0 - 5.6 % Estimated Average Glucose 114 mg/dL [facility] TREVINO (SPENCER) Comment: The ADA recommends reporting an estimated Average Glucose (eAG) with all Hemoglobin A1c results using the equation derived from a study of 507 normal and diabetic adults. Minority populations were underrepresented and children were not included. (Diabetes Care 31:8768-6208, 2008). The eAG is not equivalent to a fasting glucose. Blood 11/27/2024 9:53 AM CDT 11/27/2024 1:47 PM CDT Sam Estrada MD LAB BLOOD ORDERABLE S Final Result Performing Organization Address [facility] Co de Phone Number [facility]RE[facility] (SPENCER) [address] [place] [address] * (ABNORMAL) Comprehensive metabolic panel (11/27/2024 9:53 AM CDT) [facility] Sodium 134(L) 135 - 145 mmol/L Potassium, pl 3.3 3.3 - 4.9 mmol/L [facility] ([facility]) Chloride 87(L) 97 - 110 mmol/L [facility] (SP[facility]ER) CO2 16(L) 22 - 32 mmol/L [facility] ([facility]) Anion gap 31(H) 2 - 15 mmol/L [facility] ([facility]) BUN 13 6 - 25 mg/dL [facility] ([facility]) Creatinine 0.60 0.60 - 1.10 mg/dL [facility] ([facility]) Glucose 242(H) 70 - 199 mg/dL [facility] ([facility]) [...] S Final Result [facility] ([facility]) 1 [facility] Department [place] [address] * CT Body Outside Reference (11/04/2024 9:39 AM CDT) Impressions RAD_PACS[facility] - 11/04/2024 9:39 AM CDT These images are for Reference purposes only and have not been reviewed by [facility] Radiology. There will be no report generated by a [facility] Radiologist. Narrative [facility] - 11/04/2024 9:39 AM CDT EXAMINATION: Images For Reference Purposes Only Lui Oliva MD IMG CT PROCEDURES Final Result Performing Organization Address [facility] de Phone Number [email or web address] * CT Body Outside Reference (11/04/2024 8:52 AM CDT) Impressions [facility] - 11/04/2024 8:52 AM CDT These images are for Reference purposes only and have not been reviewed by [facility] Radiology. There will be no report generated by a [facility] Radiologist. Narrative [facility] - 11/04/2024 8:52 AM CDT EXAMINATION: Images For Reference Purposes Only Lui Oliva MD IMG CT PROCEDURES Final Result Performing Organization Address [facility] de Phone Number [email or web address] * CT Body Outside Reference (11/04/2024 8:50 AM CDT) Impressions [facility] - 11/04/2024 8:50 AM CDT These images are for Reference purposes only and have not been reviewed by [facility] Radiology. There will be no report generated by a [facility] Radiologist. Narrative [facility] - 11/04/2024 8:50 AM CDT EXAMINATION: Images For Reference Purposes Only Lui Oliva MD IMG CT PROCEDURES Final Result Performing Organization Address [facility] de Phone Number [email or web address] * CT Body Outside Reference (11/04/2024 8:49 AM CDT) Impressions [facility] - 11/04/2024 8:49 AM CDT These images are for Reference purposes only and have not been reviewed by [facility] Radiology. There will be no report generated by a [facility] Radiologist. Narrative [facility] - 11/04/2024 8:49 AM CDT EXAMINATION: Images For Reference Purposes Only us Lui Oliva MD IMG CT PROCEDURES Final Result [email or web address] * CT Abdomen Pelvis W Contrast (10/07/2024 8:49 AM CDT) Anatomical Region Laterality Modality Body N/A Computed Tomogra phy us Robert Martinez MD IMG CT PROCEDURES Final Result from Last 3 Months Additional Health Concerns Active Problems Noted Date Diagnosed Date Autogenerated Problem 12/04/2024 Insurance [facility] Advance Directives For more information, please contact: [phone] * Full Code (Latest Code Status on File) Date Activated Date Inactivated Comments 11/27/2024 10:24 PM 11/29/2024 1:02 PM * Full Code Date Activated Date Inactivated Comments 11/27/2024 10:24 PM 11/27/2024 10:24 PM Care Teams English Faculty Member Relationship Specialty Start Date End Date Eren Fry MD [address] [facility] [place] [address] PCP - General Family Medicine 10/30/24 Awilda Ramires MD [address] [place] [address] Consulting Physician Surgery 09/16/24 Lui Oliva MD [phone] [place] [address] Surgeon Colon and Rectal Surgery 11/03/24
[2025-01-01 15:29] VITALS: BP 180/127; PULSE 160; RESP 18; TEMP 36.6; O2SAT 96
[2025-01-01 15:59] VITALS: PULSE 143; RESP 25; TEMP 36.8; O2SAT 97
--- NOTE | 2025-01-01 16:05 | ED.ABDPAIN ---
HPI - Abdominal Pain General Chief Complaint: Alcohol <Cortez Pagan III, DO - Last Filed: 01/01/25 19:00> Stated Complaint: I have severe alcohol poisoning <Cortez Pagan III, DO - Last Filed: 01/01/25 19:00> Time Seen by Provider: 01/01/25 16:00 <Cortez Pagan III, DO - Last Filed: 01/01/25 19:00> History of Present Illness HPI narrative: Pt went on a 3 day escoto with heavy alcohol consumption. Pt has epigastric abdominal pain and persistent vomiting. Pt has no history of pancreatitis but admits to problem with alcohol. Pt has not had any alcohol since last night. <Cortez Pagan III, DO - Last Filed: 01/01/25 19:00> Related Data Allergies/Adverse Reactions: Allergies Allergy/AdvReac Type Severity Reaction Status Date / Time No Known Allergies Allergy Verified 10/07/24 08:37 <Cortez Pagan III, DO - Last Filed: 01/01/25 19:00> Review of Systems Review of Systems: All systems reviewed & are unremarkable except as noted in HPI and below <Cortez Pagan III, DO - Last Filed: 01/01/25 19:00> PMFSH Past Medical History Medical History: Medical History Hypertension Preeclampsia cardiomyopathy Alcohol abuse <Cortez Pagan III, DO - Last Filed: 01/01/25 19:00> Surgical History Surgical History: Surgical History History of anal fistulotomy History of incision and drainage I&D of perianal abscess on 12/30/23. History of section <Cortez Pagan III, DO - Last Filed: 01/01/25 19:00> Family History Family History: Family History Father Diabetes mellitus Mother Chronic obstructive pulmonary disease Heart disease Grandparent Lung cancer <Cortez Pagan III, DO - Last Filed: 01/01/25 19:00> Social History Social History: Social History Social History: Surrogate medical decision maker: Shannon Lopez, friend. Code status: Full code. Smoking status: Never smoker Alcohol intake: current Drinks per week: 28 Alcohol use details: Up to a 5th of whiskey a day. Substance use: never Substance use type: marijuana Other substance usage details: Daily Last use: 10/06/24 Do You Feel Safe in your Home?: Yes Lack of Transportation: No Lack of Food: Never True Current Housing: I Have Housing Concerned About Future Housing: No Difficulty Paying Gas/Electric Bills: No Difficulty Paying for Meds: No Currently Unemployed: No Education: High School Diploma/GED Difficulty w/ Childcare or Family Care: No Living arrangements: with family Additional living arrangements comments: Lives in [place]. Has a teenage son. Additional occupation/education comments: Works at [employer]. Spiritual care concerns: No <Cortez Babak Pagan III, DO - Last Filed: 01/01/25 19:00> Exam Const: General: healthy appearing and no acute distress <Cortez Babak Pagan III, DO - Last Filed: 01/01/25 19:00> Nutritional Appearance: well nourished <Cortez Babak Pagan III, DO - Last Filed: 01/01/25 19:00> Orientation/consciousness: patient oriented x3 <Cortez Babak Pagan III, DO - Last Filed: 01/01/25 19:00> Limitations: no limitations <Cortez Babak Pagan III, DO - Last Filed: 01/01/25 19:00> Resp: Effort & Inspection: normal respiratory effort <Cortez Babak Pagan III, DO - Last Filed: 01/01/25 19:00> Auscultation: clear to auscultation bilaterally <Cortez Babak Pagan III, DO - Last Filed: 01/01/25 19:00> Cardio: Rate: regular rate <Cortez Babak Pagan III, DO - Last Filed: 01/01/25 19:00> Rhythm: regular rhythm <Cortez Babak Pagan III, DO - Last Filed: 01/01/25 19:00> GI: GI Palp: Yes Soft to palpation and Yes Tenderness to palpation present (GI) (epigastric area) <Cortez Babak Pagan III, DO - Last Filed: 01/01/25 19:00> Auscultation: normal bowel sounds <Cortez Babak Pagan III, DO - Last Filed: 01/01/25 19:00> Back/Spine/Pelvis: Back: no CVA tenderness <Cortez Babak Pagan III, DO - Last Filed: 01/01/25 19:00> Skin: General skin exam: normal color <Cortez Babak Pagan III, DO - Last Filed: 01/01/25 19:00> Wounds: no wounds <Cortez Babak Pagan III, DO - Last Filed: 01/01/25 19:00> Neuro: General: patient oriented x3, moves all extremities, no meningeal signs, no focal motor deficits and CN's II-XI intact bilaterally <Cortez Babak Pagan III, DO - Last Filed: 01/01/25 19:00> Cranial nerves: Yes Nystagmus not present <Cortez Babak Pagan III, DO - Last Filed: 01/01/25 19:00> Speech: normal speech <Cortez Babak Pagan III, DO - Last Filed: 01/01/25 19:00> Extrem: General: normal to inspection and no clubbing, cyanosis or edema <Cortez Babak Pagan III, DO - Last Filed: 01/01/25 19:00> Psych: Mental Status: mental status grossly normal <Cortez Babak Pagan III, DO - Last Filed: 01/01/25 19:00> Affect: normal affect <Cortez Babak Pagan III, DO - Last Filed: 01/01/25 19:00> Attitude: cooperative <Cortez Babak Pagan III, DO - Last Filed: 01/01/25 19:00> Course Vital Signs Vital signs: Vital Signs Temperature 97.9 F 01/01/25 15:29 Pulse Rate 160 H 01/01/25 15:29 Respiratory Rate 18 01/01/25 15:29 Blood Pressure 180/127 H 01/01/25 15:29 Pulse Oximetry 96 01/01/25 15:29 Temperature 98.2 F 01/01/25 15:59 Pulse Rate 114 H 01/01/25 18:31 Respiratory Rate 17 01/01/25 18:31 Blood Pressure 146/107 H 01/01/25 18:31 Pulse Oximetry 100 01/01/25 18:31 Oxygen Delivery Room Air 01/01/25 15:59 <Cortez Babak Pagan III, DO - Last Filed: 01/01/25 19:00> Vital Signs Temperature 97.9 F 01/01/25 15:29 Pulse Rate 160 H 01/01/25 15:29 Respiratory Rate 18 01/01/25 15:29 Blood Pressure 180/127 H 01/01/25 15:29 Pulse Oximetry 96 01/01/25 15:29 Temperature 98.2 F 01/01/25 15:59 Pulse Rate 114 H 01/01/25 18:31 Respiratory Rate 17 01/01/25 18:31 Blood Pressure 146/107 H 01/01/25 18:31 Pulse Oximetry 100 01/01/25 18:31 Oxygen Delivery Room Air 01/01/25 15:59 <Hernandez Mcgowan MD - Last Filed: 01/01/25 19:24> MDM - Abdominal Pain MDM Narrative Medical decision making narrative: Pt has epigastric pain and persistent vomiting after heavy alcohol usage over past 3 days. concern for pancreatitis or alcoholic gastritis among others. will check labs and get CT abd/pelvis and give something for pain and nausea. Pt does not want anything too strong for pain. Pt resting comfortably. lipase is neg. awaiting CT result. Will turn over to Dr Mcgowan at 1900. <Cortez Pagan III, DO - Last Filed: 01/01/25 19:00> Pt has epigastric pain and persistent vomiting after heavy alcohol usage over past 3 days. concern for pancreatitis or alcoholic gastritis among others. will check labs and get CT abd/pelvis and give something for pain and nausea. Pt does not want anything too strong for pain. Pt resting comfortably. lipase is neg. awaiting CT result. Will turn over to Dr Mcgowan at 1900. PATIENT WAS SIGNED OUT TO ME PENDING CT ABDOMEN PELVIS WITH IV CONTRAST. CT WAS OBTAINED AND PLAN INTERPRETED BY ME REVEALING NO ACUTE PROCESS. PATIENT WAS INFORMED OF THESE FINDINGS AT BEDSIDE. REQUESTING LIBRIUM TAPER AND ZOFRAN. BOTH SCRIPTS WERE SENT TO HER PHARMACY. INSTRUCTED THAT SHE CANNOT DRINK ALCOHOL WHILE TAKING THIS MEDICATION. INSTRUCTED TO FOLLOW-UP WITH HER PRIMARY CARE PHYSICIAN WITHIN THE NEXT 3-5 DAYS AND RETURN TO THE ED IF ANY NEW OR WORSENING SYMPTOMS DEVELOP. SHE WAS PROVIDED STRICT RETURN PRECAUTIONS. DISCHARGED HOME IN STABLE CONDITION. <Hernandez Mcgowan MD - Last Filed: 01/01/25 19:24> Lab Data Result diagrams: 01/01/25 16:07 01/01/25 16:07 <Cortez Hilliard Pagan III, DO - Last Filed: 01/01/25 19:00> Labs: Lab Results 01/01/25 01/01/25 Range/Units 16:07 16:29 WBC 20.2 H (4.5-10.0) K/mm3 RBC 5.06 (4.2-5.4) M/mm3 Hgb 16.7 H D (12.0-15.0) g/dL Hct 46.4 (37.0-47.0) % MCV 91.7 (80-100) fl MCH 33.0 (26-34) pg MCHC 36.0 (32-36) g/dl RDW 13.0 (11.5-14.5) % Plt Count 236 D (150-375) k/mm3 MPV 10.0 (7.4-10.4) fl Immature Gran % (Auto) 0.7 H (0-0.5) % Neut % (Auto) 93.0 H (45.5-73.1) % Lymph % (Auto) 3.8 L (18.3-44.2) % [place] % (Auto) 2.3 L (2.6-8.5) % Eos % (Auto) 0.0 (0-4.4) % Baso % (Auto) 0.2 (0.2-1.2) % Lymph # (Auto) 0.76 L (0.9-3.2) K/mm3 [place] # (Auto) 0.5 (0.1-0.6) K/mm3 Eos # (Auto) 0.0 (0-0.3) K/mm3 Baso # (Auto) 0.0 (0.0-0.1) K/mm3 Abs Immat Gran (auto) 0.14 H (0.00-0.031) K/mm3 Absolute Neuts (auto) 18.8 H (1.3-6.7) K/mm3 Absolute Nucleated RBC 0.000 (0.0-0.012) K/mm3 Band Neutrophils % Not Reportable Nucleated RBC % 0.0 (0.0-0.2) % Platelet Estimate Adequate (Adequate) Schistocytes None seen PT 13.0 (11.1-14.7) Seconds INR 1.0 APTT 20.5 L (22.3-36.8) Seconds Sodium 133 L (137-145) mmol/L Potassium 3.6 (3.4-5.0) mmol/L Chloride 93 L (98-107) mmol/L Carbon Dioxide 22 (22-30) mmol/L Anion Gap 18 H (4-12) mmol/L BUN 10 (7-17) mg/dL Creatinine 0.66 L (0.7-1.0) mg/dL Estim Creat Clear Calc 85 ml/min Estimated GFR > 60 (59 - ) Glucose 217 H (65-110) mg/dL Calcium 9.2 (8.4-10.2) mg/dL Total Bilirubin 2.1 H (0.2-1.3) mg/dL AST 63 H (14-36) U/L ALT 43 H (6-35) U/L Alkaline Phosphatase 87 (38-126) U/L Total Protein 9.1 H (6.3-8.2) g/dL Albumin 4.8 (3.5-5.1) g/dL Lipase 32 (23-300) U/L POC Urine HCG, Qual Negative (Negative) Ethyl Alcohol < 10 (<10) mg/dL <Cortez Pagan III, DO - Last Filed: 01/01/25 19:00> Lab Results 01/01/25 01/01/25 Range/Units 16:07 16:29 WBC 20.2 H (4.5-10.0) K/mm3 RBC 5.06 (4.2-5.4) M/mm3 Hgb 16.7 H D (12.0-15.0) g/dL Hct 46.4 (37.0-47.0) % MCV 91.7 (80-100) fl MCH 33.0 (26-34) pg MCHC 36.0 (32-36) g/dl RDW 13.0 (11.5-14.5) % Plt Count 236 D (150-375) k/mm3 MPV 10.0 (7.4-10.4) fl Immature Gran % (Auto) 0.7 H (0-0.5) % Neut % (Auto) 93.0 H (45.5-73.1) % Lymph % (Auto) 3.8 L (18.3-44.2) % [place] % (Auto) 2.3 L (2.6-8.5) % Eos % (Auto) 0.0 (0-4.4) % Baso % (Auto) 0.2 (0.2-1.2) % Lymph # (Auto) 0.76 L (0.9-3.2) K/mm3 [place] # (Auto) 0.5 (0.1-0.6) K/mm3 Eos # (Auto) 0.0 (0-0.3) K/mm3 Baso # (Auto) 0.0 (0.0-0.1) K/mm3 Abs Immat Gran (auto) 0.14 H (0.00-0.031) K/mm3 Absolute Neuts (auto) 18.8 H (1.3-6.7) K/mm3 Absolute Nucleated RBC 0.000 (0.0-0.012) K/mm3 Band Neutrophils % Not Reportable Nucleated RBC % 0.0 (0.0-0.2) % Platelet Estimate Adequate (Adequate) Schistocytes None seen PT 13.0 (11.1-14.7) Seconds INR 1.0 APTT 20.5 L (22.3-36.8) Seconds Sodium 133 L (137-145) mmol/L Potassium 3.6 (3.4-5.0) mmol/L Chloride 93 L (98-107) mmol/L Carbon Dioxide 22 (22-30) mmol/L Anion Gap 18 H (4-12) mmol/L BUN 10 (7-17) mg/dL Creatinine 0.66 L (0.7-1.0) mg/dL Estim Creat Clear Calc 85 ml/min Estimated GFR > 60 (59 - ) Glucose 217 H (65-110) mg/dL Calcium 9.2 (8.4-10.2) mg/dL Total Bilirubin 2.1 H (0.2-1.3) mg/dL AST 63 H (14-36) U/L ALT 43 H (6-35) U/L Alkaline Phosphatase 87 (38-126) U/L Total Protein 9.1 H (6.3-8.2) g/dL Albumin 4.8 (3.5-5.1) g/dL Lipase 32 (23-300) U/L POC Urine HCG, Qual Negative (Negative) Ethyl Alcohol < 10 (<10) mg/dL <Hernandez Mcgowan MD - Last Filed: 01/01/25 19:24> Imaging Data Radiologist's impression: ITS Impressions Abdomen/Pelvis CT 01/01/25 18:54 IMPRESSION: 1. Acute infiltration of the liver with hepatomegaly. 2. No evidence of appendicitis, diverticulitis or intestinal obstruction. 3. Tiny nodule in the left lower lobe. 12 months follow-up CT is advised. <Cortez Pagan III, DO - Last Filed: 01/01/25 19:00> ITS Impressions Abdomen/Pelvis CT 01/01/25 18:54 IMPRESSION: 1. Acute infiltration of the liver with hepatomegaly. 2. No evidence of appendicitis, diverticulitis or intestinal obstruction. 3. Tiny nodule in the left lower lobe. 12 months follow-up CT is advised. <Hernandez Mcgowan MD - Last Filed: 01/01/25 19:24> Discharge Plan Discharge Clinical Impression: Alcohol abuse, Gastritis (Ruled Out): [id number] <Cortez Pagan III, DO - Last Filed: 01/01/25 19:00> Patient Disposition: Home <Cortez Pagan III, DO - Last Filed: 01/01/25 19:00> Condition: Improved <Cortez Pagan III, DO - Last Filed: 01/01/25 19:00> Instructions: Antibiotic Form, Abuse of Alcohol (ED) <Cortez Pagan III, DO - Last Filed: 01/01/25 19:00> Additional Instructions: Please follow-up with your family doctor within the next 3-5 days. You placed on Librium taper and you CANNOT drink alcohol while taking this medication. Take the prescribed Zofran as needed for nausea or vomiting. <Cortez Pagan III DO - Last Filed: 01/01/25 19:00> Patient Language: Divehi <Cortez Pagan III, DO - Last Filed: 01/01/25 19:00> Prescriptions: New ondansetron 4 mg tablet,disintegrating 4 mg PO Q8H PRN (Reason: nausea and vomiting) Qty: 10 0RF chlordiazepoxide HCl 25 mg capsule 25 mg PO TID PRN (Reason: alcohol withdrawal) Qty: 15 0RF Rx Instructions: Take 50 mg (2 pills) every 6 hours some of her stay, 25 mg (1 pill) every 6 hours on the 2nd day, 25 mg every 12 hours on the 3rd day and 25 mg once on the 4th day. No Action amoxicillin-pot clavulanate 875-125 mg tablet 1 tablet PO BID Qty: 28 0RF <Cortez Pagan III, DO - Last Filed: 01/01/25 19:00> Follow-up/Referrals: Fry,MD Eren [Primary Care Provider] - 3 Days <Cortez Pagan III, DO - Last Filed: 01/01/25 19:00> Time of Disposition: 19:22 <Cortez Pagan III, DO - Last Filed: 01/01/25 19:00> 19:22 <Hernandez Mcgowan MD - Last Filed: 01/01/25 19:24>
--- OUTSIDE RECORDS SUMMARY | 2025-01-01 16:09 | XMS_ITS | Referral Summary ---
Author Organization [address] Address [address] [place] [address] Care Team Providers Care Compensation Advisor Name Role Phone Awilda Ramires MD Unavailable [phone] Eren Fry MD Primary Care Provider [phone] Lui Oliva MD Unavailable [phone] Encounters Date Type Department Care Team Description 11/27/2024 9:49 AM CDT - 11/29/2024 9:01 AM CDT Hospital Encounter [facility] Medical Care 1 [place] [address] Sam Estrada MD Petters, Ekanga Sunday, MD Fasick, Victoria Rose, Alcohol withdrawal syndrome without complication (HCC) (Primary Dx); Alcoholic ketoacidosis; Elevated lactic acid level; Elevated blood sugar; Colitis Discharge Disposition: Left Against Medical Advice 11/28/2024 [facility] Enrollment [facility] Warm Hand Off Program 1 [place], [place] [phone] Sheela Sparks 11/27/2024 Documentation [facility] Warm Hand Off Program 1 [place], [place] [phone] Sheela Sparks 11/24/2024 Telephone [facility] Surgery [address] [place] [address] Floor 5 [place] [address] Morelia Garza BS Cancel (11/24/24 surgery ) 11/04/2024 11:59 PM CDT Anesthesia Event [facility] Operating Room [address] [address] [address] [phone] Mohan Durand NP 11/21/2024 Telephone [facility] Surgery [address] [facility] Floor 5 [place] [address] Kaylin Briceño, RMA 11/20/2024 Telephone [facility] Surgery [address] [facility] Floor 5 [place] [phone] Shanon Blount, RMA Procedure 11/19/2024 Telephone [facility] Surgery [facility] [place] Floor 5 [place] [phone] Shanon Blount, RMA Surgery Confirmation 11/04/2024 Telephone [facility] Surgery [address] [place] [address] Medical Office Building 4 [address] [place] [phone] Jennifer Angel RN 11/04/2024 9:39 AM CDT - 11/04/2024 11:59 PM CDT Hospital Encounter [facility] ([facility]) [address] [place] [address] Discharge Disposition: Discharge to home or self care 11/04/2024 8:52 AM CDT - 11/04/2024 11:59 PM CDT Hospital Encounter [facility] ([facility]) [address] [place] [address] Discharge Disposition: Discharge to home or self care 11/04/2024 8:50 AM CDT - 11/04/2024 11:59 PM CDT Hospital Encounter [facility] ([facility]) [address] [place] [address] Discharge Disposition: Discharge to home or self care 11/04/2024 Orders Only [facility] Floor 5 [place] [phone] Robert Martinez MD 11/04/2024 8:49 AM CDT - 11/04/2024 11:59 PM CDT Hospital Encounter [facility] ([facility]) [address] [place] [address] Discharge Disposition: Discharge to home or self care 10/31/2024 3:00 PM CDT Office Visit [facility] Surgery [address] [place] [address] Lui Oliva MD Anal fistula (Primary Dx); [...] Tobacco: Never Tobacco Cessation:Counseling Given: Not Answered [facility] Utilities Answer Date Recorded In the past 12 months has [employer], gas, oil, or water [employer] threatened to shut off services in your [...] often do you attend chur ch or taoism services? Never 11/28/2024 Do you belong to any clubs o r organizations such as methodist groups, unions, fraternal or athletic groups, or [...] any time in the past 12 m [facility], were you homeless or living in a prison (including now)? No 11/28/2024 Personal Safety Answer Date Recorded Have you ever been in or are you currently in a harmful physical or emotional relationship or is someone making you feel afraid or unsafe? Denies 11/27/2024 Comments No Sex and Gender Information Value Date Recorded Sex Assigned at Not on file Legal Sex Female 1:02 AM [facility]YSIC[facility] [employer] [facility] Gender Identity Not on file Sexual Orientation [...] Description 01/23/2025 7:30 AM CDT Hospital Encounter [facility] Surgery at [facility] [address] [place] [address] Lui Oliva MD [address] [facility] [phone] [place] [address] 01/23/2025 7:30 AM CDT - 01/23/2025 8:00 AM CDT Surgery [facility] Surgery at [facility] [address] [place] [address] Lui Oliva MD [address] [facility] [phone] [place] [address] EXAM UNDER ANESTHESIA - RECTUM Scheduled Procedures [...] ORDERABLES Fin al Result Performing Organization Address [facility] Co de Phone Number [facility] ([place]) 1 [facility] [employer] [place] [address] * eGFR (11/29/2024 5:15 AM CDT) eGFR [...] BLOOD ORDERABLES Fin al Result [facility] ([place]) 1 [facility] [employer] [place] [address] * Differential, auto (11/29/2024 5:15 AM CDT) [...] Fin al Result [facility] ([place]) 1 [facility] [place] [address] * CBC with auto differential (11/29/2024 5:15 [...] Fin al Result [facility] ([place]) 1 [facility] [place] [address] * Phosphorus (11/29/2024 5:15 AM CDT) Phosphorus, pl 3.3 2.3 - 4.5 mg/dL Blood 11/29/2024 5:15 AM CDT 11/29/2024 5:19 AM CDT Kaai LAB BLOOD ORDERABLES Fin al Result [facility] ([place]) 1 [facility] [employer] [place] [address] * Magnesium (11/29/2024 5:15 AM CDT) Magnesium 1.8 1.4 - 2.5 mg/dL Blood 11/29/2024 5:15 AM CDT 11/29/2024 5:19 AM CDT Gwen Erika Pen[employer] LAB BLOOD ORDERABLES Fin al Result Performing Organization Address [facility] de Phone Number [facility] ([place]) 1 [facility] [employer] [address] * (ABNORMAL) Comprehensive metabolic panel (11/29/2024 5:15 [...] CDT Gwen Max DO LAB BLOOD ORDERABLES [facility] al Result [facility] ([place]) 1 [facility] Department [place] [address] * CTA Abdomen Pelvis (11/28/2024 9:16 PM [...] Parmjit Flor M.D. REBEKAH: REBEKAH Report ID: [id number] Reading Location: [id number] Procedure Note Parmjit Flor MD - 11/29/2024 [...] Parmjit Flor M.D. REBEKAH: REBEKAH Report ID: [id number] Reading Location: [id number] Gwen Max DO IMG CT PROCEDURES Final Result * Sepsis Lactate w/ Reflex (11/28/2024 6:14 PM CDT) Sepsis Lactate 1.8 0.7 - 2.0 mmol/L Blood 11/28/2024 6:14 PM CDT 11/28/2024 6:17 PM CDT Gwen Max DO LAB BLOOD ORDERABLES Fin al Result [facility] ([place]) 1 [facility] [employer] [place] [address] * Erythrocyte sedimentation rate (11/28/2024 6:14 PM CDT) Pathologist [facility] Erythrocyte sedimentation rate 9 1 - 20 mm/hr Blood 11/28/2024 6:14 PM CDT 11/28/2024 6:17 PM CDT Gwen Max A2B LAB BLOOD ORDERABLES Fin al Result Performing Organization Address [facility] Co de Phone Number [facility] ([place]) 1 [facility] [employer] [place] [address] * (ABNORMAL) Lactate (11/28/2024 9:37 AM CDT) Pathologist [facility] Lactate 4.6(C) 0.7 - 2.0 mmol/L Comment:Critical result call ed to and read back by Louisa Bryant rn ([facility]) on 11/28/2024 09:50:27 CDT to trang alberts. Blood 11/28/2024 9:37 AM CDT 11/28/2024 9:44 AM CDT Gwen Mackcocone DO LAB BLOOD ORDERABLES Fin al Result Performing Organization Address City/[facility]/ZIP Co de Phone Number [facility] [place]) 1 [facility] [employer] [place] [address] * eGFR (11/28/2024 9:37 AM CDT) eGFR [...] Fin al Result [facility] ([place]) 1 [facility] Department [place] [address] * Procalcitonin (11/28/2024 9:37 AM CDT) Procalcitonin <0.05 <=0.25 ng/mL Comment:Testing performed by : [facility], [address] [facility], [place]., [address] Blood 11/28/2024 9:37 AM CDT 11/29/2024 2:25 PM CDT Gwen Max DO LAB BLOOD ORDERABLES Fin al Result [facility] ([place]) 1 [place] [address] * CRP (acute phase) (11/28/2024 9:37 AM CDT) Pathologist [facility] CRP 6.9 <=10.0 mg/L Blood 11/28/2024 9:37 AM CDT 11/28/2024 4:35 PM CDT Gwen Max DO LAB BLOOD ORDERABLES Fin al Result Performing Organization Address [facility] de Phone Number [facility] ([place]) 1 [place] [address] * (ABNORMAL) Phosphorus (11/28/2024 9:37 AM CDT) Pathologist [facility] Phosphorus, pl 1.7(L) 2.3 - 4.5 mg/dL Blood 11/28/2024 9:37 AM CDT 11/28/2024 9:44 AM CDT Gwen Max DO LAB BLOOD ORDERABLES Fin al Result Performing Organization Address [facility] de Phone Number [facility] ([place]) 1 [facility] [employer] [place] [address] * Magnesium (11/28/2024 9:37 AM CDT) [facility] Magnesium 1.7 1.4 - 2.5 mg/dL Blood 11/28/2024 9:37 AM CDT 11/28/2024 9:44 AM CDT Gwen Max DO LAB BLOOD ORDERABLES Fin al Result [facility] ([place]) 1 [place] [address] * (ABNORMAL) Comprehensive metabolic panel (11/28/2024 9:37 [...] DO LAB BLOOD ORDERABLES Fin al Result [facility] ([place]) 1 [facility] Department [place] [address] * eGFR (11/28/2024 4:42 AM CDT) eGFR [...] MONZON LAB BLOOD ORDERABLES Pam vincent Result [facility] ([place]) 1 [facility] Department [place] [address] * (ABNORMAL) Differential, auto (11/28/2024 4:42 AM [...] Pam vincent Result [facility] ([place]) 1 [facility] Department [place] [address] * (ABNORMAL) CBC with auto differential (11/28/2024 [...] Pam l Result [facility] ([place]) 1 [facility] [place] [address] * Magnesium (11/28/2024 4:42 AM CDT) Magnesium 1.8 1.4 - 2.5 mg/dL Blood 11/28/2024 4:42 AM CDT 11/28/2024 4:54 AM CDT us Param Crespo MD LAB BLOOD ORDERABLES Fi nal Result [facility] ([place]) 1 [facility] Department of [employer] [place] [address] * (ABNORMAL) Comprehensive metabolic panel (11/28/2024 4:42 AM CDT) Sodium 136 135 - 145 mmol/L Potassium, pl 2.9(C) 3.3 - 4.9 mmol/L [facility] ([place]) Comment:Critical Result call ed by [email or web address] at 2024-11-28 05:35:10. Result Read Back by [...] BLOOD ORDERABLES Pam melisa Result [facility] ([place]) 1 [facility] Department [place] [address] * CT Chest PE (CTA) Abdomen Pelvis [...] by Gregory Pablo M.D. JR: Report ID: [id number] Reading Location: [id number] Procedure Note Gregory Pablo MD - 11/27/2024 [...] by Gregory Pablo M.D. JR: Report ID: [id number] Reading Location: [place] [address] PROCEDURES Final R esult * (ABNORMAL) Sepsis Lactate w/ Reflex (11/27/2024 7:28 PM CDT) Pathologist [facility] Sepsis Lactate 2.7(H) 0.7 - 2.0 mmol/L Blood 11/27/2024 7:28 PM CDT 11/27/2024 7:31 PM CDT Sam Estrada MD LAB BLOOD ORDERABLE S Final Result [facility] [place] 1 [facility] Department [place] [address] * Ethanol (11/27/2024 6:09 PM CDT) Ethanol <10 <=10 mg/dL Comment: Interpretive Data Legal limit of intoxication > or = 80 mg/dL Levels > or = 400 mg/dL are potentially TOXIC. Current interpretive data was last revised on 2018. Blood 11/27/2024 6:09 PM CDT 11/27/2024 6:12 PM CDT Kaylin MONZON LAB BLOOD ORDERABLES Pam melisa Result [facility] ([place]) 1 [facility] Department [place] [address] * (ABNORMAL) Drugs of Abuse Screen, Urine [...] 11/27/2024 6:14 PM CDT Narrative [facility] ([place]) - 11/27/2024 6:53 PM CDT Drug of Abuse screening is performed by immunoassay for medical purposes only. This is not to be used for Pain Management purposes. us Kaylin MONZON LAB URINE ORDERABLES Pam l Result Performing Organization Address City/[facility]/ZIP Co de Phone Number [facility] ([place]) 1 [facility] [employer] [place] [address] * (ABNORMAL) Sepsis Lactate w/ Reflex (11/27/2024 4:32 PM CDT) Sepsis Lactate 4.4(C) 0.7 - 2.0 mmol/L Comment:Critical result call ed to and read back by Jenna Segura(er) on 11/27/2024 16:52:43 CDT to Kathleen Caputo. Blood 11/27/2024 4:32 PM CDT 11/27/2024 4:51 PM CDT us Sam Estrada MD LAB BLOOD ORDERABLE S Final Result Performing Organization Address [facility]/ZIP Co de Phone Number [facility] ([place]) 1 [facility] [employer] [place] [address] * Blood culture Blood Peripheral (11/27/2024 2:53 PM CDT) Report Final Report: No growth Comment:Testing performed by : [facility], [address] [facility] [place]., [address] Blood (Peripheral) 11/27/2024 2:53 PM CDT 11/27/2024 6:45 PM CDT Narrative [facility] ([place]) - 12/02/2024 7:01 AM CDT From a [...] performance characteristics have been verified by the [facility]biology [facility]. For questions about this culture, contact the Microbiology Laboratory at [phone]. Interpretive data was last revised on 24. us Sam Estrada MD LAB MICROBIOLOGY - GENERAL ORDERABLES Final Result [facility] ([place]) 1 [facility] Department [place] [address] * Blood culture Blood Peripheral (11/27/2024 2:53 PM CDT) Report Final Report: No growth Comment:Testing performed by : [facility], [address] [facility] [place]., [address] Blood (Peripheral) 11/27/2024 2:53 PM CDT 11/27/2024 [...] performance characteristics have been verified by the [facility]biology [facility]. For questions about this culture, contact the Microbiology Laboratory at [phone]. Interpretive data was last revised on 24. Sam Estrada MD LAB MICROBIOLOGY - GENERAL ORDERABLES Final Result [facility] [place] 1 [facility] Department of Laboratories [place], [place] [address] * XR Chest 1 View (11/27/2024 1:58 [...] Jayce Cano M.D. MM: MM Report ID: [id number] Reading Location: [id number] Procedure Note Jayce Cano MD - 11/27/2024 [...] Jayce Cano M.D. MM: MM Report ID: [id number] Reading Location: [id number] Sam Estrada MD IMG XR PROCEDURES F [...] tendency for uric acid stone formation. Source: [facility] [place] [employer] Current Interpretive Data was last revised [...] ORDERABLES Final Result [facility] ([place]) 1 [facility] Department of Laboratories [place], [place] [id number] * (ABNORMAL) Sepsis Lactate w/ Reflex (11/27/2024 12:58 PM CDT) Sepsis Lactate 8.2(C) 0.7 - 2.0 mmol/L Comment:Critical result call ed to and read back by Connor De Dios RN (ER) on 11/27/2024 13:05:20 CDT to Rose Marie Bryant. Blood 11/27/2024 12:5 8 PM CDT 11/27/2024 1:01 PM CDT us Sam Estrada MD LAB BLOOD ORDERABLE S Final Result Performing Organization Address City/[facility]/ZIP Co de Phone Number [facility] ([place]) 1 [facility] [employer] [place] [address] * eGFR (11/27/2024 12:58 PM CDT) eGFR [...] BLOOD ORDERABLE S Final Result [facility] ([place]) 1 [facility] [place] [place] [address] * (ABNORMAL) Basic metabolic panel (11/27/2024 12:58 PM CDT) Sodium 134(L) 135 - 145 mmol/L Potassium, pl 3.6 3.3 - 4.9 mmol/L [facility] ([place]) Chloride 92(L) 97 - 110 mmol/L [facility] ([place]) CO2 22 22 - 32 mmol/L [facility] ([place]) Anion gap 20(H) 2 - 15 mmol/L [facility] ([place]) BUN 12 6 - 25 mg/dL [facility] ([place]) Creatinine 0.57(L) 0.60 - 1.10 mg/dL [facility] ([place]) Glucose 93 70 - 199 mg/dL [facility] ([place]) Comment: Interpretive Data Fasting glucose [...] 2022. Calcium 8.6 8.5 - 10.3 mg/dL [facility] ([place]) Blood 11/27/2024 12:5 8 PM CDT 11/27/2024 1:01 PM CDT us Sam Estrada MD LAB BLOOD ORDERABLE S Final Result [facility] ([place]) 1 [facility] Department [place] [address] * hCG, blood, quantitative (11/27/2024 12:57 PM CDT) hCG, quant <5.0 0.0 - 5.0 IUnits/L Comment: Interpretive Data Male: < 5 IU/L Non- premenopausal Female: <5 IU/L The Rgela hCG Beta Quant assay procedure was used. Results from different manufacturers or methods may not be comparable. Serial testing should be performed using the same method. Interpretive Data was last revised on 2023 Blood 11/27/2024 12:5 7 PM CDT 11/27/2024 1:27 PM CDT Sam Estrada MD LAB BLOOD ORDERABLE S Edited Result - Final [facility] ([place]) 1 [facility] [place] [address] * (ABNORMAL) Blood gas, venous (11/27/2024 12:57 PM CDT) pH, Venous 7.45(H) 7.32 - 7.43 PCO2, Venous 35(L) 40 - 50 mmHg [facility] ([place]) PO2, Venous 71 mmHg [facility] ([place]) Comment: Interpretive Data No reference range established. Current interpretive data was last revised 2017. HCO3 Venous, Calculated 24 20 - 30 mmol/L [facility] ([place]) BE, venous 1 mmol/L [facility] ([place]) Comment: Interpretive Data No Reference Range Established Current Interpretive Data was last revised on 2017. Blood 11/27/2024 12:5 7 PM CDT 11/27/2024 1:19 PM CDT us Sam Estrada MD LAB BLOOD ORDERABLE S Final Result Performing Organization Address City/[facility]/ZIP Co de Phone Number [facility] ([place]) 1 [facility] [employer] [place] [address] * POCT glucose (11/27/2024 11:56 AM CDT) Glucose, POC 116 70 - 199 mg/dL Blood 11/27/2024 11:5 6 AM CDT 11/27/2024 11:56 AM CDT Sam Estrada MD LAB POCT ORDERABLES - DEVICE Final Result [facility] ([place]) 1 [facility] [employer] [place] [address] * ECG 12 lead (11/27/2024 10:17 AM CDT) 11/27/2024 10:1 7 AM CDT Narrative [facility] - 11/27/2024 11:43 AM CDT Vent Rate: 136 bpm RR Interval: 440 msec IA Interval: 139 msec QRS Duration: 86 msec QT Interval: 330 msec QTC Interval: 410 msec P-R-T [place]: 34 - 30 - 10 degrees IMPRESSION: SINUS TACHYCARDIA NONSPECIFIC ST \T\ T-WAVE ABNORMALITY ABNORMAL RHYTHM ECG Electronically Signed By: Peewee Connors MD us Sam Estrada MD ECG ORDERABLES Fin al Result Performing Organization Address City/[facility]/ZIP Co de Phone Number [facility] * eGFR (11/27/2024 9:53 AM CDT) eGFR [...] ([place]) [address] Department [place] [address] * Beta-hydroxybutyrate (11/27/2024 9:53 AM CDT) [facility] Beta-Hydroxybut yrate 0.3 <=0.5 mmol/L Comment:Testing performed by : [facility], [address] [place] [address], [place]., [address] Blood 11/27/2024 9:53 AM CDT 11/27/2024 3:34 PM CDT us Sam Estrada MD LAB BLOOD ORDERABLE S Final Result [facility] ([place]) 1 [facility] Department [place] [address] * (ABNORMAL) CBC with auto differential (11/27/2024 9:53 AM CDT) [facility] WBC 9.79 3.80 - 9.90 K/cumm Hgb [...] S Final Result [facility] ([place]) 1 [facility] Department [place] [address] * (ABNORMAL) Manual Differential (11/27/2024 9:53 AM [...] 1.0(H) 0.0 - 0.0 % [facility] ([place]) RBC morphology Consistent with RBC Indicies [facility] ([place]) Platelet estimate Adequate CE [facility] ([place]) Blood 11/27/2024 9:53 AM CDT 11/27/2024 10:03 AM CDT us aSm Estrada MD LAB BLOOD ORDERABLE S Final Result Performing Organization Address City/[facility] Co de Phone Number [facility] ([place]) 1 [facility] [place] [address] * Protime-INR (11/27/2024 9:53 AM CDT) PT 12.3 9.7 - 13.0 sec [facility] ([place]) INR 1.14 0.90 - 1.20 [facility] ([place]) Comment: Interpretive data Oral anticoagulant therapeutic ranges: Venous thromboembolism prophylaxis or treatment: 2.0-3.0 CARDIOLOGY Standard range: 2.0-3.0 High-intensity range: 2.5-3.5 Refer to indication-specific guidelines for appropriate target ranges for prosthetic heart valve replacement. Current interpretive data was last revised on 2019. Blood 11/27/2024 9:53 AM CDT 11/27/2024 10:03 AM CDT us Sam Estrada MD LAB BLOOD ORDERABLE S Final Result Performing Organization Address City/[facility] Co de Phone Number [facility] ([place]) 1 [facility] [employer] [place] [address] * Magnesium (11/27/2024 9:53 AM CDT) Magnesium 1.4 1.4 - 2.5 mg/dL Blood 11/27/2024 9:53 AM CDT 11/27/2024 10:03 AM CDT Sam Estrada MD LAB BLOOD ORDERABLE S Final Result Performing Organization Address City/[facility]/ZIP Co de Phone Number [facility] ([place]) 1 [place] [address] * Lipase (11/27/2024 9:53 AM CDT) Pathologist [facility] Lipase 12 10 - 99 Units/L Blood 11/27/2024 9:53 AM CDT 11/27/2024 10:07 AM CDT Sam Estrada MD LAB BLOOD ORDERABLE S Final Result Performing Organization Address [facility] de Phone Number [facility] ([place]) 1 [place] [address] * Hemoglobin A1c (11/27/2024 9:53 AM CDT) [facility] Hgb A1C 5.6 4.0 - 5.6 % Estimated Average Glucose 114 mg/dL [facility] ([place]) Comment: The ADA recommends reporting an estimated Average Glucose (eAG) with all Hemoglobin A1c results using the equation derived from a study of 507 normal and diabetic adults. Minority populations were underrepresented and children were not included. (Diabetes Care 31:6795-8266, 2008). The eAG is not equivalent to a fasting glucose. Blood 11/27/2024 9:53 AM CDT 11/27/2024 1:47 PM CDT Sam Estrada MD LAB BLOOD ORDERABLE S Final Result Performing Organization Address [facility] Co de Phone Number [facility] ([place]) 1 [place] [address] * (ABNORMAL) Comprehensive metabolic panel (11/27/2024 9:53 AM CDT) [facility] Sodium 134(L) 135 - 145 mmol/L Potassium, pl 3.3 3.3 - 4.9 mmol/L [facility] ([place]) Chloride 87(L) 97 - 110 mmol/L [facility] ([place]) CO2 16(L) 22 - 32 [...] S Final Result [facility] ([place]) 1 [facility] Department [place] [address] * CT Body Outside Reference (11/04/2024 9:39 AM CDT) Impressions RAD_PACS_[facility] - 11/04/2024 9:39 AM CDT These images are for Reference purposes only and have not been reviewed by [facility]. There will be no report generated by a [facility] Radiologist. Narrative [facility] - 11/04/2024 9:39 AM CDT EXAMINATION: Images For Reference Purposes Only Lui Oliva MD IMG CT PROCEDURES Final Result Performing Organization Address [facility] de Phone Number [email or web address] * CT Body Outside Reference (11/04/2024 8:52 AM CDT) Impressions [email or web address] - 11/04/2024 8:52 AM CDT These images are for Reference purposes only and have not been reviewed by [facility]. There will be no report generated by a [facility] [facility] Radiologist. Narrative [facility] - 11/04/2024 8:52 AM CDT EXAMINATION: Images For Reference Purposes Only Lui Oliva MD IMG CT PROCEDURES Final Result Performing Organization Address [facility] de Phone Number [facility] * CT Body Outside Reference (11/04/2024 8:50 AM CDT) Impressions [facility] - 11/04/2024 8:50 AM CDT These images are for Reference purposes only and have not been reviewed by [facility] Rad[facility]. There will be no report generated by a [facility] Radiologist. Narrative [facility] - 11/04/2024 8:50 AM CDT EXAMINATION: Images For Reference Purposes Only Lui Oliva MD IMG CT PROCEDURES Final Result Performing Organization Address [facility] de Phone Number [facility] * CT Body Outside Reference (11/04/2024 8:49 AM CDT) Impressions [facility] - 11/04/2024 8:49 AM CDT These images are for Reference purposes only and have not been reviewed by [facility]. There will be no report generated by a [facility] Radiologist. Narrative [facility] - 11/04/2024 8:49 AM [...] Date Diagnosed Date Autogenerated Problem 12/04/2024 Insurance [facility] Advance Directives For more information, please contact: [phone] * Full Code (Latest Code Status on File) Date Activated Date Inactivated Comments 11/27/2024 10:24 PM 11/29/2024 1:02 PM * Full Code Date Activated Date Inactivated Comments 11/27/2024 10:24 PM 11/27/2024 10:24 PM Care Teams Compensation Advisor Relationship Specialty Start Date End Date Eren Fry MD [address] [facility] [place] [address] PCP - General Family Medicine 10/30/24 Awilda Ramires MD [address] [place] [address] Consulting Physician Surgery 09/16/24 Lui Oliva MD [phone] [place] [address] Surgeon Colon and Rectal Surgery 11/03/24
--- OUTSIDE RECORDS SUMMARY | 2025-01-01 16:09 | XMS_ITS | Clinical Summary ---
Author Organization [address] Address [address] [place] [phone] Care Team Providers Care Stone Polisher Machine Name Role Phone Awilda Ramires MD Unavailable [phone] Eren Fry MD Primary Care Provider [phone] Lui Oliva MD Unavailable [phone] Allergies No known active allergies Medications [...] Care Team Description 11/28/2024 AMH WH Enrollment [facility] Warm Hand Off Program 1 [place], [place] [phone] Sheela Sparks 11/27/2024 9:49 AM CDT - 11/29/2024 9:01 AM CDT Hospital Encounter [facility] Medical Care 1 [place] [address] Zozula, MD Cherie Ramirez Ekanga Sunday, MD Fasick, Victoria Rose, Alcohol withdrawal syndrome without complication (HCC) (Primary Dx); Alcoholic ketoacidosis; Elevated lactic acid level; Elevated blood sugar; Colitis Discharge Disposition: Left Against Medical Advice 11/27/2024 Documentation [facility] Warm Hand Off Program 1 [place], [place] [phone] Sheela Sparks 11/24/2024 Telephone [facility] Surgery [facility] Floor 5 [place] [phone] Morelia Garza, BS Cancel (11/24/24 surgery ) 11/21/2024 Telephone [facility] Surgery [address] [place] [address] Floor 5 [place] [address] Kaylin Briceño RMA 11/20/2024 Telephone [facility] Surgery [address] [place] [address] 5 [place] [phone] Shanon Blount, RMA Procedure 11/19/2024 Telephone [facility] Surgery [address] [place] [address] Floor 5 [place] [phone] Shanon Blount, RMA Surgery Confirmation 11/04/2024 11:59 PM CDT Anesthesia Event [facility] Operating Room [id number] [place] [address] [place] [address] Mohan Durand NP 11/04/2024 9:39 AM CDT - 11/04/2024 11:59 PM CDT Hospital Encounter [facility] [address] [place] [address] Discharge Disposition: Discharge to home or self care 11/04/2024 8:52 AM CDT - 11/04/2024 11:59 PM CDT Hospital Encounter [facility] [address] [place] [address] Discharge Disposition: Discharge to home or self care 11/04/2024 8:50 AM CDT - 11/04/2024 11:59 PM CDT Hospital Encounter [facility] [address] [place] [address] [place] [address] Discharge Disposition: Discharge to home or self care 11/04/2024 8:49 AM CDT - 11/04/2024 11:59 PM CDT Hospital Encounter [facility] [address] [place] [address] Discharge Disposition: Discharge to home or self care 11/04/2024 Telephone [facility] Surgery [address] [facility] Medical Office Building [address] [place] [phone] Jennifer Angel RN 11/04/2024 Orders Only [facility] Surgery [address] [facility] Floor 5 [place] [phone] Robert Martinez MD 10/31/2024 3:00 PM CDT Office Visit [facility] Surgery [address] [facility] 2nd Floor [address] [place] [address] Lui Oliva MD Anal fistula (Primary Dx); [...] Tobacco: Never Tobacco Cessation:Counseling Given: Not Answered [facility] Utilities Answer Date Recorded In the past 12 months has [employer], gas, oil, or water company threatened to [...] often do you attend chur ch or mu-ism services? Never 11/28/2024 Do you belong to any clubs o r organizations such as evangelical groups, unions, fraternal or athletic groups, or [...] any time in the past 12 m [facility], were you homeless or living in a long-term (including now)? No 11/28/2024 Personal Safety Answer Date Recorded Have you ever been in or are you currently in a harmful physical or emotional relationship or is someone making you feel afraid or unsafe? 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 Gender Identity Not on file Sexual Orientation [...] 7:30 AM CDT Hospital Encounter [facility] at [facility] [address] [place] [address] Lui Oliva MD [address] [facility] [id number] [place] [address] 01/23/2025 7:30 AM CDT - 01/23/2025 8:00 AM CDT Surgery [facility] at [facility] [address] [place] [address] Lui Oliva MD [address] [facility] [phone] [place] [address] EXAM UNDER ANESTHESIA - RECTUM Scheduled Procedures [...] ORDERABLES Fin al Result Performing Organization Address City/State/[facility] Co de Phone Number [facility] [place]) 1 [facility] [place] [address] * eGFR (11/29/2024 5:15 AM [...] BLOOD ORDERABLES Fin al Result [facility] ([place]) 1 [facility] [place] [address] * Differential, auto (11/29/2024 5:15 AM CDT) [...] Fin al Result [facility] ([place]) 1 [facility] [place] [address] * CBC with auto differential (11/29/2024 5:15 [...] ([place]) MCHC 35.1 32.3 - 35.7 g/dL [facility] ([place]) RDW CV 12.8 11.1 - 14.9 % [facility] ([place]) RDW SD 44.2 35.7 - 48.1 fL [facility] ([place]) NRBC abs 0.00 0.00 - 0.01 K/cumm [facility] ([place]) Blood 11/29/2024 5:15 AM CDT 11/29/2024 5:19 AM CDT Gwen Max DO LAB BLOOD ORDERABLES Fin al Result Z[facility]ID [facility] ([place]) 1 [facility] [place] [address] * Phosphorus (11/29/2024 5:15 AM CDT) Phosphorus, pl 3.3 2.3 - 4.5 mg/dL Blood 11/29/2024 5:15 AM CDT 11/29/2024 5:19 AM CDT Gwen Max DO LAB BLOOD ORDERABLES Fin al Result Performing Organization Address City/[facility]/ZIP Co de Phone Number [facility]ID [facility] ([place]) 1 [facility] [place] [address] * Magnesium (11/29/2024 5:15 AM CDT) Magnesium 1.8 1.4 - 2.5 mg/dL Blood 11/29/2024 5:15 AM CDT 11/29/2024 5:19 AM CDT Gwen Max DO LAB BLOOD ORDERABLES Fin al Result [facility] ([place]) 1 [facility] [place] [address] * (ABNORMAL) Comprehensive metabolic panel (11/29/2024 5:15 [...] Fin al Result [facility] ([place]) 1 [facility] [place] [address] * CTA Abdomen Pelvis (11/28/2024 9:16 PM [...] Parmjit Flor M.D. REBEKAH: REBEKAH Report ID: [id number] Reading Location: [id number] Procedure Note Parmjit Flor MD - 11/29/2024 [...] Parmjit Flor M.D. REBEKAH: REBEKAH Report ID: [id number] Reading Location: [place] [address] Gwen Max DO IMG CT PROCEDURES Final Result * Sepsis Lactate w/ Reflex (11/28/2024 6:14 PM CDT) Pathologist [facility] Sepsis Lactate 1.8 0.7 - 2.0 mmol/L Blood 11/28/2024 6:14 PM CDT 11/28/2024 6:17 PM CDT Gwen Max DO LAB BLOOD ORDERABLES Fin al Result [facility] [place] 1 [facility] [place] [address] * Erythrocyte sedimentation rate (11/28/2024 6:14 PM CDT) Erythrocyte sedimentation rate 9 1 - 20 mm/hr Blood 11/28/2024 6:14 PM CDT 11/28/2024 6:17 PM CDT Gwen MackInvictus Medical DO LAB BLOOD ORDERABLES Fin al Result Performing Organization Address City/[facility]/ZIP Co de Phone Number [facility] [place]) 1 [facility] [place] [address] * (ABNORMAL) Lactate (11/28/2024 9:37 AM CDT) Pathologist [facility] Lactate 4.6(C) 0.7 - 2.0 mmol/L Comment:Critical result call ed to and read back by Louisa Bryant rn ([facility]) on 11/28/2024 09:50:27 CDT to trang alberts. Blood 11/28/2024 9:37 AM CDT 11/28/2024 9:44 AM CDT Gwen James [facility] DO LAB BLOOD ORDERABLES Fin al Result Performing Organization Address [facility] Co de Phone Number [facility] ([place]) 1 [facility] [place] [address] * eGFR (11/28/2024 9:37 AM CDT) eGFR [...] CDT 11/28/2024 9:44 AM CDT Gwen Erika MartinaInvictus Medical DO LAB BLOOD ORDERABLES Fin al Result Performing Organization Address City/[facility] Co de Phone Number [facility] ([place]) 1 [facility] [place] [address] * Procalcitonin (11/28/2024 9:37 AM CDT) Procalcitonin <0.05 <=0.25 ng/mL Comment:Testing performed by : [facility], [facility]5 [facility], [place]., [address] Blood 11/28/2024 9:37 AM CDT 11/29/2024 2:25 PM CDT Gwen Erika [facility] DO LAB BLOOD ORDERABLES Fin al Result Performing Organization Address City/[facility] Co de Phone Number [facility] ([place]) 1 [facility] [place] [address] * CRP (acute phase) (11/28/2024 9:37 AM CDT) CRP 6.9 <=10.0 mg/L Blood 11/28/2024 9:37 AM CDT 11/28/2024 4:35 PM CDT Gwen James [facility] DO LAB BLOOD ORDERABLES Fin al Result Performing Organization Address City/[facility] Co de Phone Number [facility] ([place]) 1 [facility] [place] [address] * (ABNORMAL) Phosphorus (11/28/2024 9:37 AM CDT) Phosphorus, pl 1.7(L) 2.3 - 4.5 mg/dL Blood 11/28/2024 9:37 AM CDT 11/28/2024 9:44 AM CDT Gwen MackInvictus Medical DO LAB BLOOD ORDERABLES Fin al Result Performing Organization Address City/[facility]/ZIP Co de Phone Number [facility] ([place]) 1 [place] [address] * Magnesium (11/28/2024 9:37 AM CDT) Magnesium 1.7 1.4 - 2.5 mg/dL Blood 11/28/2024 9:37 AM CDT 11/28/2024 9:44 AM CDT [facility] rEika MackInvictus Medical LAB BLOOD ORDERABLES Fin al Result Performing Organization Address [facility] de Phone Number [facility] ([place]) 1 [place] [address] * (ABNORMAL) Comprehensive metabolic panel (11/28/2024 9:37 AM CDT) Sodium 131(L) 135 - 145 mmol/L Potassium, pl 3.3 3.3 - 4.9 mmol/L [facility] ([place]) Chloride 90(L) 97 - 110 mmol/L [facility] ([place]) CO2 25 22 - 32 [...] 8.2(L) 8.5 - 10.3 mg/dL [facility] ([place]) Bilirubin, total 0.6 0.1 - 1.2 mg/dL [...] DO LAB BLOOD ORDERABLES Fin al Result [facility] ([place]) 1 [facility] [place] [address] * eGFR (11/28/2024 4:42 AM CDT) eGFR [...] BLOOD ORDERABLES Pam melisa Result [facility] ([place]) 1 [facility] [place] [address] * (ABNORMAL) Differential, auto (11/28/2024 4:42 AM [...] Neutrophil pct 66.4 % [facility] ([place]) Comment: Interpretive Data Percent cell count reference [...] Pam vincent Result [facility] ([place]) 1 [facility] [place] [address] * (ABNORMAL) CBC with auto differential (11/28/2024 [...] Pam l Result [facility] ([place]) 1 [facility] [place] [address] * Magnesium (11/28/2024 4:42 AM CDT) Pathologist [facility] Magnesium 1.8 1.4 - 2.5 mg/dL Blood 11/28/2024 4:42 AM CDT 11/28/2024 4:54 AM CDT Param Crespo MD LAB BLOOD ORDERABLES Fi nal Result Performing Organization Address [facility] Co de Phone Number [facility] ([place]) 1 [facility] [place] [address] * (ABNORMAL) Comprehensive metabolic panel (11/28/2024 4:42 AM CDT) Sodium 136 135 - 145 mmol/L Potassium, pl 2.9(C) 3.3 - 4.9 mmol/L [facility] ([place]) Comment:Critical Result call ed by [email or web address] at 2024-11-28 05:35:10. Result Read Back by Willa Viera [facility] Chloride 95(L) 97 - 110 mmol/L [facility] ([place]) CO2 25 22 - 32 mmol/L [facility] ([place]) Anion gap 16(H) 2 - 15 mmol/L [facility] ([place]) BUN 5(L) 6 - 25 mg/dL [facility] ([place]) Creatinine 0.57(L) 0.60 - 1.10 mg/dL [facility] ([place]) Glucose 124 70 - 199 mg/dL [facility] ([place]) Comment: Interpretive Data Fasting glucose [...] MONZON LAB BLOOD ORDERABLES Pam l Result [facility] ([place]) 1 [facility] [place] [address] * CT Chest PE (CTA) Abdomen Pelvis [...] by Gregory Pablo M.D. JR: Report ID: [id number] Reading Location: [place] [address] Procedure Note Gregory Pablo MD - 11/27/2024 [...] by Gregory Pablo M.D. JR: Report ID: [id number] Reading Location: [id number] Kaylin MONZON IMG CT PROCEDURES Final R esult * (ABNORMAL) Sepsis Lactate w/ Reflex (11/27/2024 7:28 PM CDT) [facility] Sepsis Lactate 2.7(H) 0.7 - 2.0 mmol/L Blood 11/27/2024 7:28 PM CDT 11/27/2024 7:31 PM CDT Sam Estrada MD LAB BLOOD ORDERABLE S Final Result Performing Organization Address City/[facility] Co de Phone Number [facility] [place]) [address] [place] [address] [place] [address] * Ethanol (11/27/2024 6:09 PM CDT) [facility] Ethanol <10 <=10 mg/dL Comment: Interpretive Data Legal limit of intoxication > or = 80 mg/dL Levels > or = 400 mg/dL are potentially TOXIC. Current interpretive data was last revised on 2018. Blood 11/27/2024 6:09 PM CDT 11/27/2024 6:12 PM CDT Kaylin MONZON LAB BLOOD ORDERABLES Pam l Result [facility] [place]) [address] [place] [address] [place] [address] * (ABNORMAL) Drugs of Abuse Screen, Urine without Confirmation (11/27/2024 6:08 PM CDT) [facility] Amphetamine, ur Not Detected CutOff 500ng/mL Comment: [...] URINE ORDERABLES Pam vincent Result [facility] ([place]) 1 [facility] [place] [address] * (ABNORMAL) Sepsis Lactate w/ Reflex (11/27/2024 4:32 PM CDT) Sepsis Lactate 4.4(C) 0.7 - 2.0 mmol/L Comment:Critical result call ed to and read back by Jenna Segura(er) on 11/27/2024 16:52:43 CDT to Kathleen Caputo. Blood 11/27/2024 4:32 PM CDT 11/27/2024 4:51 PM CDT us Sam Estrada MD LAB BLOOD ORDERABLE S Final Result [facility] ([place]) 1 [facility] [place] [address] * Blood culture Blood Peripheral (11/27/2024 2:53 PM CDT) Report Final Report: No growth Comment:Testing performed by : [facility], 1 [facility] [address] Blood (Peripheral) 11/27/2024 2:53 PM CDT 11/27/2024 6:45 PM CDT Narrative [facility] ([place]) - 12/02/2024 7:01 AM CDT From a [...] have been verified by the [facility]. For questions about this culture, contact the Microbiology Laboratory at [phone]. Interpretive data was last revised on 24. Sam Estrada MD LAB MICROBIOLOGY - GENERAL ORDERABLES Final Result [facility]ID [facility] ([place]) 1 [facility] [place] [address] * Blood culture Blood Peripheral (11/27/2024 2:53 PM CDT) Report Final Report: No growth Comment:Testing performed by : [facility], [address] [place] [address] Blood (Peripheral) 11/27/2024 2:53 PM CDT 11/27/2024 6:46 PM CDT Narrative [facility] ([place]) - 12/02/2024 7:01 AM CDT Draw [...] have been verified by the [facility]. For questions about this culture, contact the Microbiology Laboratory at [phone]. Interpretive data was last revised on 24. us Sam Estrada MD LAB MICROBIOLOGY - GENERAL ORDERABLES Final Result [facility] [place]) 6 [facility] Department of Laboratories [place], [place] [id number] * XR Chest 1 View (11/27/2024 1:58 [...] Jayce Cano M.D. MM: MM Report ID: [id number] Reading Location: [id number] Procedure Note Jayce Cano MD - 11/27/2024 [...] Jayce Cano M.D. MM: MM Report ID: [id number] Reading Location: [place] [address] us Sam Estrada MD IMG XR PROCEDURES [...] tendency for uric acid stone formation. Source: [employer]omas[employer] Current Interpretive Data was last revised on [...] microscopic UA and culture not met. [facility] ([place]) Urine 11/27/2024 1:25 PM CDT 11/27/2024 5:57 PM CDT Sam Estrada MD LAB MICROBIOLOGY - GENERAL ORDERABLES Final Result Performing Organization Address City/[facility]/ZIP Co de Phone Number [facility] ([place]) 1 [facility] [employer] [place] [address] * (ABNORMAL) Sepsis Lactate w/ Reflex (11/27/2024 12:58 PM CDT) [facility] Sepsis Lactate 8.2(C) 0.7 - 2.0 mmol/L Comment:Critical result call ed to and read back by Connor De Dios RN (ER) on 11/27/2024 13:05:20 CDT to Rose Marie Bryant. Blood 11/27/2024 12:5 8 PM CDT 11/27/2024 1:01 PM CDT us Sam Estrada MD LAB BLOOD ORDERABLE S Final Result [facility] ([place]) 1 [facility] [place] [address] * eGFR (11/27/2024 12:58 PM CDT) [facility] eGFR >90 >=60 mL/min/1. 73 m2 Comment: [...] MD LAB BLOOD ORDERABLE S Final Result [facility] ([place]) 1 [facility] [place] [address] * (ABNORMAL) Basic metabolic panel (11/27/2024 12:58 [...] Calcium 8.6 8.5 - 10.3 mg/dL [facility] ([place]) Blood 11/27/2024 12:5 8 PM CDT 11/27/2024 1:01 PM CDT Sam Estrada MD LAB BLOOD ORDERABLE S Final Result Performing Organization Address [facility] de Phone Number [facility] ([place]) 1 [place] [address] * hCG, blood, quantitative (11/27/2024 12:57 PM [...] Edited Result - Final Performing Organization Address [facility] de Phone Number [facility] ([place]) 1 [place] [address] * (ABNORMAL) Blood gas, venous (11/27/2024 12:57 PM CDT) pH, Venous 7.45(H) 7.32 - 7.43 PCO2, Venous 35(L) 40 - 50 mmHg [facility] ([place]) PO2, Venous 71 mmHg [facility] ([place]) Comment: Interpretive Data No reference range established. [...] ORDERABLE S Final Result Performing Organization Address City/[facility] Co de Phone Number [facility] ([place]) 1 [facility] [place] [address] * POCT glucose (11/27/2024 11:56 AM CDT) [facility] Glucose, POC 116 70 - 199 mg/dL Blood 11/27/2024 11:5 6 AM CDT 11/27/2024 11:56 AM CDT Sam Estrada MD LAB POCT ORDERABLES - DEVICE Final Result Performing Organization Address [facility] de Phone Number [facility] ([place]) 1 [facility] [place] [address] * ECG 12 lead (11/27/2024 10:17 AM CDT) 11/27/2024 10:1 7 AM CDT Narrative [facility] - 11/27/2024 11:43 AM CDT Vent Rate: 136 bpm RR Interval: 440 msec [place] Interval: 139 msec QRS Duration: 86 msec QT Interval: 330 msec QTC Interval: 410 msec P-R-T [place]: 34 - 30 - 10 degrees IMPRESSION: SINUS TACHYCARDIA NONSPECIFIC ST \T\ T-WAVE ABNORMALITY ABNORMAL RHYTHM ECG Electronically Signed By: Peewee Connors MD Sam Estrada MD ECG ORDERABLES Fin al Result Performing Organization Address [facility] Co de Phone Number [facility] * eGFR (11/27/2024 9:53 AM [...] ORDERABLE S Final Result Performing Organization Address City/[facility]/ZIP Co de Phone Number [facility] ([place]) [address] [place] [address] [place] [address] * Beta-hydroxybutyrate (11/27/2024 9:53 AM CDT) Beta-Hydroxybut yrate 0.3 <=0.5 mmol/L Comment:Testing performed by : [facility], [address] [place] [address]., [address] Blood 11/27/2024 9:53 AM CDT 11/27/2024 3:34 PM CDT us Sam Estrada MD LAB BLOOD ORDERABLE S Final Result [facility] ([place]) 1 [facility] [place] [address] * (ABNORMAL) CBC with auto differential (11/27/2024 [...] S Final Result [facility] ([place]) 1 [facility] [place] [address] * (ABNORMAL) Manual Differential (11/27/2024 9:53 AM CDT) Pathologist [facility] Differential Manual Cells Counted 100 [facility] ([place]) Neutrophil abs 7.73(H) 1.50 - 6.50 K/cumm [facility] ([place]) Imm gran abs 0.10 0.00 - 0.10 K/cumm [facility] ([place]) Lymphocyte abs 1.76 0.80 - 3.30 K/cumm [facility] ([place]) Monocyte abs 0.10(L) 0.20 - 0.80 K/cumm [...] morphology Consistent with RBC Indicies [facility] ([place]) Platelet estimate Adequate CE [facility] ([place]) Blood 11/27/2024 9:53 AM CDT 11/27/2024 10:03 AM CDT us Sam Estrada MD LAB BLOOD ORDERABLE S Final Result [facility] ([place]) 1 [facility] [place] [address] * Protime-INR (11/27/2024 9:53 AM CDT) PT 12.3 9.7 - 13.0 sec [facility] ([place]) INR 1.14 0.90 - 1.20 [facility] ([place]) Comment: Interpretive data Oral anticoagulant therapeutic ranges: Venous thromboembolism prophylaxis or treatment: 2.0-3.0 CARDIOLOGY Standard range: 2.0-3.0 High-intensity range: 2.5-3.5 Refer to indication-specific guidelines for appropriate target ranges for prosthetic heart valve replacement. Current interpretive data was last revised on 2019. Blood 11/27/2024 9:53 AM CDT 11/27/2024 10:03 AM CDT us Sam Estrada MD LAB BLOOD ORDERABLE S Final Result [facility] ([place]) [address] [place] [address] [place] [address] * Magnesium (11/27/2024 9:53 AM CDT) Magnesium 1.4 1.4 - 2.5 mg/dL Blood 11/27/2024 9:53 AM CDT 11/27/2024 10:03 AM CDT us Sam Estrada MD LAB BLOOD ORDERABLE S Final Result [facility] ([place]) 1 [facility] [place] [address] * Lipase (11/27/2024 9:53 AM CDT) Lipase 12 10 - 99 Units/L Blood 11/27/2024 9:53 AM CDT 11/27/2024 10:07 AM CDT Sam Estrada MD LAB BLOOD ORDERABLE S Final Result [facility] ([place]) 1 [facility] [place] [address] * Hemoglobin A1c (11/27/2024 9:53 AM CDT) Hgb A1C 5.6 4.0 - 5.6 % Estimated Average Glucose 114 mg/dL [facility] ([place]) Comment: The ADA recommends reporting an estimated Average Glucose (eAG) with all Hemoglobin A1c results using the equation derived from a study of 507 normal and diabetic adults. Minority populations were underrepresented and children were not included. (Diabetes Care 31:1033-0224, 2008). The eAG is not equivalent to a fasting glucose. Blood 11/27/2024 9:53 AM CDT 11/27/2024 1:47 PM CDT us Sam Estrada MD LAB BLOOD ORDERABLE S Final Result [facility] ([place]) 1 [facility] [place] [address] * (ABNORMAL) Comprehensive metabolic panel (11/27/2024 9:53 AM CDT) [facility] Sodium 134(L) 135 - 145 mmol/L Potassium, pl 3.3 3.3 - 4.9 mmol/L [facility] ([place]) Chloride 87(L) 97 - 110 mmol/L [facility] ([place]) CO2 16(L) 22 - 32 mmol/L [facility] ([place]) Anion gap 31(H) 2 - 15 mmol/L [facility] ([place]) BUN 13 6 - 25 mg/dL [facility] ([place]) Creatinine 0.60 0.60 - 1.10 mg/dL [facility] Glucose 242(H) 70 - 199 mg/dL [facility] Comment: Interpretive Data Fasting glucose [...] ORDERABLE S Final Result Performing Organization Address City/[facility]/ZIP Co de Phone Number [facility] [place] [address] * CT Body Outside Reference (11/04/2024 9:39 AM CDT) Impressions [facility] - 11/04/2024 9:39 AM CDT These images are for Reference purposes only and have not been reviewed by [facility]. There will be no report generated by a [facility] Radiologist. Narrative [facility]_P[facility] - 11/04/2024 9:39 AM CDT EXAMINATION: Images For Reference Purposes Only us Lui Oliva MD IMG CT PROCEDURES Final Result [facility] * CT Body Outside Reference (11/04/2024 8:52 AM CDT) Impressions [facility] - 11/04/2024 8:52 AM CDT These images are for Reference purposes only and have not been reviewed by [facility]. There will be no report generated by a [facility] Radiologist. Narrative [facility] - 11/04/2024 8:52 AM CDT EXAMINATION: Images For Reference Purposes Only Lui Oliva MD IMG CT PROCEDURES Final Result Performing Organization Address [facility] de Phone Number [facility] * CT Body Outside Reference (11/04/2024 8:50 AM CDT) Impressions [facility] - 11/04/2024 8:50 AM CDT These images are for Reference purposes only and have not been reviewed by [facility]. There will be no report generated by a [facility] Radiologist. Narrative [facility] - 11/04/2024 8:50 AM CDT EXAMINATION: Images For Reference Purposes Only Lui Oliva MD IMG CT PROCEDURES Final Result Performing Organization Address [facility] de Phone Number [facility] * CT Body Outside Reference (11/04/2024 8:49 AM CDT) Impressions [facility] - 11/04/2024 8:49 AM CDT These images are for Reference purposes only and have not been reviewed by [facility]. There will be no report generated by a [facility] Radiologist. Narrative [facility] - 11/04/2024 8:49 AM CDT EXAMINATION: Images For Reference Purposes Only Lui Oliva MD IMG CT PROCEDURES Final Result Performing Organization Address [facility] de Phone Number [facility] * CT Abdomen Pelvis W Contrast (10/07/2024 8:49 AM CDT) Anatomical Region Laterality Modality Body N/A Computed Tomogra phy Robert Martinez MD IMG CT PROCEDURES Final Result from Last 3 Months Additional Health Concerns Active Problems Noted Date Diagnosed Date Autogenerated Problem 12/04/2024 Insurance [facility] Advance Directives For more information, please contact: [phone] * Full Code (Latest Code Status on File) Date Activated Date Inactivated Comments 11/27/2024 10:24 PM 11/29/2024 1:02 PM * Full Code Date Activated Date Inactivated Comments 11/27/2024 10:24 PM 11/27/2024 10:24 PM Care Teams [employer] Relationship Specialty Start Date End Date Eren Fry MD [address] [place] [address] [place] [address] PCP - General Family Medicine 10/30/24 Awilda Ramires MD [address] [place] [address] Consulting Physician Surgery 09/16/24 Lui Oliva MD [id number] [place] [address] Surgeon Colon and Rectal Surgery 11/03/24
--- OUTSIDE RECORDS SUMMARY | 2025-01-01 16:09 | XMS_ITS | Continuity of Care Document ---
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 [address], [place], [place], [address] , [place]. tel:[phone] PREV VISIT, EST, AGE 18-39 [facility], [address], [place], [place], [address], [place] tel:[phone] [facility] physical (chief complaint) Encounter for general adult medical examination without abnormal findings 2 Sumanth Palacios. [address], [place], [place], [address] , [place]. tel:[phone] OFFICE/OUTPA TIENT VISIT, EST [facility], [address] [place], [address], [place] tel:[phone] [facility] Medicine alcohol1 (chief complaint) weight gain1 (chief complaint) HCT (chief complaint) HLP (chief complaint) Generalized Anxiety DisorderAlcohol dependence, in remissionHyperlipid emiaSecondary polycythemiaAbnorma l weight gain 1 Sumanth Palacios. [address], [place], [place], [address] , [place]. tel:[phone] OFFICE/OUTPA TIENT VISIT, [facility], [address], [place], [place], [address], [place] tel:[phone] [facility] Alcohol1 (chief complaint) anxitey1 (chief complaint) GERD1 (chief complaint) Alcohol dependence with intoxication, unspecifiedGenerali zed Anxiety DisorderGastritis, unspecified, without bleeding 1 Sumanth Palacios. [address], [place], [place], [address] , [place]. tel:[phone] OFFICE/OUTPA TIENT VISIT, [facility], [address], [place], [place], [address], [place] tel:[phone] [facility] GERD w/o esophagitisAlcohol dependence, in remissionGeneralize d Anxiety Disorder 1 Sumanth Palacios. [address], [place], [place], [address] , [place]. tel:[phone] [facility], [address], [place], [place], [address], [place] tel:[phone] [facility] anxiety1 (chief complaint) alcohol1 (chief complaint) GERD1 (chief complaint) Generalized Anxiety DisorderAlcohol dependence, in remissionGERD w/o esophagitis 1 Sumanth Palacios. [address], [place], [place], [address] , [place]. tel:[phone] OFFICE/OUTPA TIENT VISIT, [facility], [address], [place], [place], [address], [place] tel:[phone] [facility] anxiety1 (chief complaint) alcohol1 (chief complaint) hirsutism1 (chief complaint) hyponaremi a1 (chief complaint) weight gain1 (chief complaint) HirsutismGeneralize d Anxiety DisorderAlcohol dependence, in remissionAbnormal weight gainHyponatremia 1 Sumanth Palacios. [address], [place], [place], [address] , [place]. tel:[phone] OFFICE/OUTPA TIENT VISIT, [facility], [address], [place], [place], [address], [place] tel:[phone] [facility] alcohol1 (chief complaint) anxiety1 (chief complaint) hirsutism1 (chief complaint) hyponatrem ia1 (chief complaint) HirsutismGeneralize d Anxiety DisorderAlcohol dependence, in remissionHyponatrem ia 1 Sumanth Lin [address], [place], [place], [address] , [place]. tel:[phone] Referring Provider: Vaibhav Esqueda [address], [place], [place], [address]. tel:[phone] OFFICE/OUTPA TIENT VISIT, [facility], [address] [place] [address] [address], [place], [place], [address], [place] tel:[phone] [facility] anxiety1 (chief complaint) hirsutism1 (chief complaint) insomnia1 (chief complaint) HirsutismGeneralize d Anxiety DisorderInsomnia 0 Sumanth Lin [address], [place], [place], [address] , [place]. tel:[phone] Referring Provider: Vaibhav Esqueda [address], [place], [place], [address]. tel:[phone] OFFICE/OUTPA TIENT VISIT, [facility], [address], [place], [place], [address], [place] tel:[phone] [facility] anxiety1 (chief complaint) weight (chief complaint) Abnormal weight gainGeneralized Anxiety Disorder 0 Sumanth Lin [address], [place], [place], [address] , [place]. tel:[phone] Referring Provider: Vaibhav Esqueda [address], [place], [place], [address]. tel:[phone] OFFICE/OUTPA TIENT VISIT, [facility], [address], [place], [place], [address], [place] tel:[phone] [facility] anxiety1 (chief complaint) weight gain1 (chief complaint) Generalized Anxiety DisorderAbnormal weight gain 0 Sumanth Palacios. [address], [place], [place], [address] , [place]. tel:[phone] Referring Provider: Philip Julio, [address], [place], [place], [address]. tel:[phone] OFFICE/OUTPA TIENT VISIT, [facility], [address], [place], [place], [address], [place] tel:[phone] [facility] HLP (chief complaint) hCT (chief complaint) glucose1 (chief complaint) anxiety1 (chief complaint) weight gain1 (chief complaint) HyperlipidemiaHyper glycemiaSecondary polycythemiaGeneral ized Anxiety DisorderAbnormal weight gain Feb- 0 Sumanth Palacios. [address], [place], [place], [address] , [place]. tel:[phone] Referring Provider: Philip Julio [address], [place], [place], [address]. tel:[phone] OFFICE/OUTPA TIENT VISIT, [facility], [address], [place], [place], [address], [place] tel:[phone] [facility] anxiety1 (chief complaint) HTN (chief complaint) Generalized Anxiety DisorderAbnormal weight lossHirsutism Jan- 0 Sumanth Palacios. [address], [place], [place], [address] , [place]. tel:[phone] Referring Provider: Philip Julio [address], [place], [place], [address]. tel:[phone] OFFICE/OUTPA TIENT VISIT, [facility], [address], [place], [place], [address], [place] tel:[phone] [facility] anxiety1 (chief complaint) weight loss1 (chief complaint) Generalized Anxiety DisorderAbnormal weight loss 0 0 Sumanth Palacios. [address], [place], [place], [address] , [place]. tel:[phone] Referring Provider: Philip Julio, [address], [place], [place], [address]. tel:[phone] OFFICE/OUTPA TIENT VISIT, [facility], [address], [place], [place], [address], [place] tel:[phone] [facility] work excuse1 (chief complaint) Fatigue 0 Sumanth Palacios. [address], [place], [place], [address] , [place]. tel:[phone] Referring Provider: Philip Julio, [address], [place], [place], [address]. tel:[phone] OFFICE/OUTPA TIENT VISIT, [facility], [address], [place], [place], [address], [place] tel:[phone] [facility] anxiety1 (chief complaint) weight1 (chief complaint) Abnormal weight gainGeneralized Anxiety Disorder 0 Sumanth Palacios. [address], [place], [place], [address] , [place]. tel:[phone] Referring Provider: Vaibhav Esquead [address], [place], [place], [address]. tel:[phone] OFFICE/OUTPA TIENT VISIT, [facility], [address], [place], [place], [address], [place] tel:[phone] [facility] HLP (chief complaint) anxiety1 (chief complaint) Generalized Anxiety DisorderHyperlipide caitlyn 0 0 Sumanth Palacios. [address], [place], [place], [address] , [place]. tel:[phone] Referring Provider: Philip Julio [address], [place], [place], [address]. tel:[phone] OFFICE/OUTPA TIENT VISIT, EST [facility], [address], [place], [place], [address], [place] tel:[phone] [facility] Medicine anxiety1 (chief complaint) weight gain1 (chief complaint) Abnormal weight gainGeneralized Anxiety Disorder Apr-2 0 Sumanth Palacios. [address], [place], [place], [address] , [place]. tel:[phone] Referring Provider: Phliip Julio [address], [place], [place], [address]. tel:[phone] OFFICE/OUTPA TIENT VISIT, [facility], [address], [place], [place], [address], [place] tel:[phone] [facility] anxiety1 (chief complaint) hand numbness1 (chief complaint) Paresthesia of skinGeneralized Anxiety Disorder Aug- 0 Sumanth Palacios. [address], [place], [place], [address] , [place]. tel:[phone] Referring Provider: Vaibhav Esqueda [address], [place], [place], [address]. tel:[phone] OFFICE/OUTPA TIENT VISIT, [facility], [address], [place], [place], [address], [place] tel:[phone] [facility] tingling1 (chief complaint) weight loss1 (chief complaint) anxiety1 (chief complaint) Other muscle spasmParesthesia of skinGeneralized Anxiety DisorderAbnormal weight loss Fe- 0- 0 Sumanth Palacios. [address], [place], [place], [address] , [place]. tel:[phone] Referring Provider: Vaibhav Esqueda [address], [place], [place], [address]. tel:[phone] PREV VISIT, EST, AGE 18-39 [facility], [address], [place], [place], [address], [place] tel:[phone] [facility] Physical (chief complaint) Encntr for general adult medical exam w/o abnormal findings 0 0 Sumanth Palacios. [address], [place], [place], [address] , [place]. [phone] Referring Provider: Vaibhav Esqueda [address], [place], [place], [address]. tel:[phone] OFFICE/OUTPA TIENT VISIT, [facility], [address], [place], [place], [address], [place] tel:[phone] [facility] anxiety1 (chief complaint) weight1 (chief complaint) Abnormal weight gainGeneralized Anxiety Disorder 9 Sumanth Palacios. [address], [place], [place], [address] , [place]. [phone] Referring Provider: Vaibhav Esqueda [address], [place], [place], [address]. tel:[phone] OFFICE/OUTPA TIENT VISIT, [facility], [address], [place], [place], [address], [place] tel:[phone] [facility] weight loss1 (chief complaint) anxiety1 (chief complaint) Abnormal weight lossGeneralized Anxiety Disorder 9 Sumanth Lin [address], [place], [place], [address] , [place]. [phone] Referring Provider: Vaibhav Esqueda [address], [place], [place], [address]. tel:[phone] OFFICE/OUTPA TIENT VISIT, [facility], [address], [place], [place], [address], [place] tel:[phone] [facility] weight loss1 (chief complaint) anxiety1 (chief complaint) Generalized Anxiety DisorderAbnormal weight loss 9 Sumanth Palacios. [address], [place], [place], [address] , [place]. [phone] Referring Provider: Vaibhav Esqueda [address], [place], [place], [address]. tel:[phone] OFFICE/OUTPA TIENT VISIT, [facility], [address], [place], [place], [address], [place] tel:[phone] [facility] fatty liver1 (chief complaint) HLP (chief complaint) MCV (chief complaint) weight loss1 (chief complaint) anxiety1 (chief complaint) HyperlipidemiaAbnor mal weight lossGeneralized Anxiety DisorderFatty liverOther specified disease of bloodHyperglycemia 0 9 Sumanth Palacios. [address], [place], [place], [address] , [place]. tel:[phone] Referring Provider: Vaibhav Esqueda [address], [place], [place], [address]. tel:[phone] OFFICE/OUTPA TIENT VISIT, [facility], [address], [place], [place], [address], [place] tel:[phone] [facility] anxiety1 (chief complaint) LFT (chief complaint) obesity1 (chief complaint) HLP (chief complaint) sleep apnea1 (chief complaint) Liver diseaseHyperlipidem iaSleep apneaGeneralized Anxiety DisorderAbnormal weight gain 9 Sumanth aPlacios. [address], [place], [place], [address] , [place]. tel:[phone] Referring Provider: Vaibhav Esqueda [address], [place], [place], [address]. tel:[phone] OFFICE/OUTPA TIENT VISIT, [facility], [address], [place], [place], [address], [place] tel:[phone] [facility] HTN (chief complaint) anxiety1 (chief complaint) LFT (chief complaint) Abnormal weight lossLiver diseaseGeneralized Anxiety Disorder 9 Sumanth Palacios. [address], [place], [place], [address] , [place]. tel:[phone] Referring Provider: Vaibhav Esqueda [address], [place], [place], [address]. tel:[phone] OFFICE/OUTPA TIENT VISIT, [facility], [address], [place], [place], [address], [place] tel:[phone] [facility] weight1 (chief complaint) anxiety1 (chief complaint) lFt (chief complaint) sleep apnea1 (chief complaint) Sleep apneaLiver diseaseGeneralized Anxiety DisorderSecondary polycythemiaHyperli pidemiaAbnormal weight gain 9 Sumanth Palacios. [address], [place], [place], [address] , [place]. tel:[phone] Referring Provider: Vaibhav Esqueda [facility] A, [place], [place], [address]. tel:[phone] OFFICE/OUTPA TIENT VISIT, [facility], [address], [place], [place], [address], [place] tel:[phone] [facility] anxiety1 (chief complaint) weight1 (chief complaint) sleep apnea1 (chief complaint) liver1 (chief complaint) Abnormal weight gainLiver diseaseGeneralized Anxiety DisorderSleep apnea 9 Sumanth Palacios. [address], [place], [place], [address] , [place]. tel:[phone] Referring Provider: Vaibhav Esqu[address], [place], [place], [address]. tel:[phone] OFFICE/OUTPA TIENT VISIT, [facility], [address], [place], [place], [address], [place] tel:[phone] [facility] HLP (chief complaint) LFT (chief complaint) polycythem ia1 (chief complaint) glucose1 (chief complaint) anxiety1 (chief complaint) HyperlipidemiaLiver diseaseHyperglycemi aSecondary polycythemiaGeneral ized Anxiety DisorderAbnormal weight gain 9 Sumanth Lin [address], [place], [place], [address] , [place]. tel:[phone] Referring Provider: Vaibhav Esqueda [address], [place], [place], [address]. tel:[phone] OFFICE/OUTPA TIENT VISIT, EST [facility], [address], [place], [place], [address], [place] tel:[phone] [facility] GI (chief complaint) Viral infection 9 Sumanth Palacios. [address], [place], [place], [address] , [place]. tel:[phone] Referring Provider: Philip Julio, [address], [place], [place], [address]. tel:[phone] OFFICE/OUTPA TIENT VISIT, [facility], [facility] [address], [place], [place], [address], [place] tel:[phone] [facility] weight gain1 (chief complaint) anxiety1 (chief complaint) cough1 (chief complaint) insomnia1 (chief complaint) Acute bronchitisInsomniaG eneralized Anxiety DisorderAbnormal weight gainEssential (primary) hypertension 9 Sumanth Palacios. [address], [place], [place], [address] , [place]. tel:[phone] Referring Provider: Vaibhav Esqueda [address], [place], [place], [address]. tel:[phone] PREV VISIT, EST, AGE 18-39 [facility], [address], [place], [place], [address], [place] tel:[phone] [facility] Physical (chief complaint) Encounter for general adult medical exam w abnormal findingsAbnormal weight gainGeneralized Anxiety DisorderOccult blood in fecesEssential (primary) hypertension 8 Sumanth Palacios. [address], [place], [place], [address] , [place]. tel:[phone] Referring Provider: Vaibhav Esqueda [address], [place], [place], [address]. tel:[phone] OFFICE/OUTPA TIENT VISIT, [facility], [address], [place], [place], [address], [place] tel:[phone] [facility] insomnia1 (chief complaint) anxiety1 (chief complaint) sob1 (chief complaint) Generalized Anxiety DisorderAsthmaInsom niaSleep disorder, unspecified 0 7 Sumanth Palacios. [address], [place], [address] , [place]. tel:[phone] Referring Provider: Philip Julio, [address], [place], [place], [address]. tel:[phone] OFFICE/OUTPA TIENT VISIT, [facility], [address], [place], [address], [place] tel:[phone] [facility] anxiety1 (chief complaint) insomnia1 (chief complaint) InsomniaGeneralized Anxiety Disorder 7 Sumanth Palacios. [address], [place], [place], [address] , [place]. tel:[phone] Referring Provider: Philip Julio [address], [place], [place], [address]. tel:[phone] OFFICE/OUTPA TIENT VISIT, [facility], [address], [place], [place], [address], [place] tel:[phone] [facility] back pain1 (chief complaint) HLP (chief complaint) anxiety1 (chief complaint) insomnia1 (chief complaint) HyperlipidemiaBack painGeneralized Anxiety Disorder 7 Sumanth Palacios. [address], [place], [place], [address] , [place]. tel:[phone] Referring Provider: Vaibhav Esqueda [address], [place], [place], [address]. tel:[phone] OFFICE/OUTPA TIENT VISIT, [facility], [address], [place], [place], [address], [place] tel:[phone] [facility] anxiety1 (chief complaint) insomnia1 (chief complaint) marijauna1 (chief complaint) weight loss1 (chief complaint) InsomniaGeneralized Anxiety DisorderCannabis abuse, uncomplicatedAbnorm al weight loss 7 Sumanth Palacios. [address], [place], [place], [address] , [place]. tel:[phone] Referring Provider: Vaibhav Esqueda [address], [place], [place], [address]. tel:[phone] OFFICE/OUTPA TIENT VISIT, [facility], [address], [place], [place], [address], [place] tel:[phone] [facility] anxiety1 (chief complaint) insomnia1 (chief complaint) HLP (chief complaint) Generalized Anxiety DisorderHyperlipide miaInsomniaBody mass index (BMI) 32.0-32.9, adult Fe 7 Sumanth Lin [address], [place], [address] , [place]. tel:[phone] Referring Provider: Vaibhav Esqueda [address], [place], [place], [address]. tel:[phone] OFFICE/OUTPA TIENT VISIT, [facility], [address], [place], [place], [address], [place] tel:[phone] [facility] anxiety1 (chief complaint) insomnia1 (chief complaint) obesity1 (chief complaint) Generalized Anxiety DisorderBody mass index (BMI) 33.0-33.9, adultInsomnia 7 Sumanth Lin [address], [place], [place], [address] , [place]. tel:[phone] Referring Provider: Vaibhav Esqueda [address], [place], [place], [address]. tel:[phone] OFFICE/OUTPA TIENT VISIT, [facility], [address], [place], [place], [address], [place] tel:[phone] [facility] HLP (chief complaint) MCV (chief complaint) toothache1 (chief complaint) anxiety1 (chief complaint) HyperlipidemiaAtypi jaguar facial painOther specified disease of bloodInsomnia 0 6 Sumanth Palacios. [address], [place], [place], [address] , [place]. tel:[phone] Referring Provider: Vaibhav Esqueda [address], [place], [place], [address]. tel:[phone] PREV VISIT, EST, AGE 18-39 [facility], [address], [place], [place], [address], [place] tel:[phone] [facility] PHysical (chief complaint) Encounter for general adult medical exam w abnormal findingsGeneralized anxiety disorderInsomnia 6 Sumanth Palacios. [address], [place], [place], [address] , [place]. tel:[phone] Referring Provider: Vaibhav Esqueda [address] [facility] A, [place], [place], [address]. tel:[phone] OFFICE/OUTPA TIENT VISIT, EST [facility], [address], [place], [place], [address], [place] tel:[phone] [facility] anxiety1 (chief complaint) hematuria1 (chief complaint) HTN (chief complaint) insomnia1 (chief complaint) Essential (primary) hypertensionHematur ia, unspecifiedGenerali zed anxiety disorderInsomnia 6 Sumanth Lin [address], [place], [place], [address] , [place]. tel:[phone] Referring Provider: Vaibhav Esqueda [address], [place], [place], [address]. tel:[phone] OFFICE/OUTPA TIENT VISIT, EST [facility], [address] [place], [address], [place] tel:[phone] [facility] shoulder pain1 (chief complaint) hematuria (chief complaint) anxiety1 (chief complaint) HematuriaGeneralize d anxiety disorderPain in rt shoulder 6 Sumanth Lin [address], [place], [place], [address] , [place]. tel:[phone] Referring Provider: Philip Julio, [address], [place], [place], [address]. tel:[phone] OFFICE/OUTPA TIENT VISIT, [facility], [address], [place], [place], [address], [place] tel:[phone] [facility] anxiety1 (chief complaint) insomnia1 (chief complaint) Generalized anxiety disorderOther insomnia 0 6 Sumanth Palacios. [address], [place], [place], [address] , [place]. tel:[phone] Referring Provider: Vaibhav Esqueda [address], [place], [place], [address]. tel:[phone] OFFICE/OUTPA TIENT VISIT, [facility], [address], [place], [place], [address], [place] tel:[phone] [facility] Anxiety1 (chief complaint) insomnia1 (chief complaint) fatigue1 (chief complaint) Other insomniaOther fatigueGeneralized anxiety disorder 8 5 Sumanth Palacios. [address], [place], [place], [address] , [place]. tel:[phone] Referring Provider: Vaibhav Esqueda [address], [place], [place], [address]. tel:[phone] OFFICE/OUTPA TIENT VISIT, [facility], [address], [place], [place], [address], [place] tel:[phone] [facility] chest pain1 (chief complaint) anxiety1 (chief complaint) Generalized anxiety disorderHematuria 7 5 Sumanth Palacios. [address], [place], [place], [address] , [place]. tel:[phone] Referring Provider: Vaibhav Esqueda [address], [place], [place], [address]. tel:[phone] OFFICE/OUTPA TIENT VISIT, [facility], [address], [place], [place], [address], [place] tel:[phone] [facility] Anxiety (chief complaint) HLP (chief complaint) hematuria (chief complaint) chest pain (chief complaint) Dietary surveillance and counselingGeneraliz ed anxiety disorderHematuriaHy perlipidemiaChest pain 5 Sumanth Palacios. [address], [place], [place], [address] , [place]. tel:[phone] Referring Provider: Vaibhav Esqueda [address], [place], [place], [address]. tel:[phone] PREV VISIT, EST, AGE 18-39 [facility], [address], [place], [place], [address], [place] tel:[phone] [facility] PHysical (chief complaint) Routine medical examDietary surveillance and counseling 5 Sumanth Palacios. [address], [place], [place], [address] , [place]. tel:[phone] Referring Provider: Vaibhav Esqueda [address], [place], [place], [address]. tel:[phone] OFFICE/OUTPA TIENT VISIT, EST [facility], [address], [place], [place], [address], [place] tel:[phone] [facility] rectal bleeding (chief complaint) anxiety (chief complaint) HTN (chief complaint) HLP (chief complaint) Unspecified essential hypertensionOther and unspecified hyperlipidemiaGener alized anxiety disorderRectal bleedingDietary surveillance and counseling 5 Sumanth Palacios. [address], [place], [place], [address] , [place]. tel:[phone] Referring Provider: Vaibhav Esqueda [address], [place], [place], [address]. tel:[phone] OFFICE/OUTPA TIENT VISIT, EST [facility], [address], [place], [place], [address], [place] tel:[phone] [facility] anxiety (chief complaint) alcohol (chief complaint) Generalized anxiety disorderAlcohol dependence in remission Flash- 3-201 5 Sumanth Palacios. [address], [place], [place], [address] , [place]. tel:[phone] Referring Provider: Vaibhav Esqueda [address], [place], [place], [address]. tel:[phone] OFFICE/OUTPA TIENT VISIT, [facility], [address], [place], [place], [address], [place] tel:[phone] [facility] anxiety (chief complaint) alcohol (chief complaint) Generalized anxiety disorderDepression May-0 6- 5 Sumanth Palacios. [address], [place], [place], [address] , [place]. tel:[phone] Referring Provider: Vaibhav Esqueda [address], [place], [place], [address]. tel:[phone] OFFICE/OUTPA TIENT VISIT, [facility], [address], [place], [place], [address], [place] tel:[phone] [facility] anxiety (chief complaint) HTN (chief complaint) Dietary surveillance and counselingDepressio nGeneralized anxiety disorder Apr-0 6 5 Sumanth Palacios. [address], [place], [place], [address] , [place]. tel:[phone] Referring Provider: Vaibhav Esqueda [address], [place], [place], [address]. tel:[phone] OFFICE/OUTPA TIENT VISIT, [facility], [address], [place], [place], [address], [place] tel:[phone] [facility] anxiety (chief complaint) alcohol (chief complaint) Dietary surveillance and counselingSedative, hypnotic or anxiolytic dependence, unspecifiedOther and unspecified alcohol dependence, episodic drinking behavior Mar-0 9-201 5 Sumanth Palacios. [address], [place], [place], [address] , [place]. tel:[phone] Referring Provider: Vaibhav Esqueda [address], [place], [address]. tel:[phone] OFFICE/OUTPA TIENT VISIT, [facility], [address], [place], [place], [address], [place] tel:[phone] [facility] sick (chief complaint) cardiomyop athy (chief complaint) alcohol (chief complaint) anxiety (chief complaint) Dietary surveillance and counselingOther and unspecified diseases of upper respiratory tractCardiomyopathy , Other PrimaryOther and unspecified alcohol dependence, episodic drinking behaviorGeneralized anxiety disorder 5 Sumanth Palacios. [address], [place], [place], [address] , [place]. [phone] Referring Provider: Vaibhav Esqueda [address], [place],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
--- OUTSIDE RECORDS SUMMARY | 2025-01-01 16:09 | XMS_ITS | Clinical Summary ---
Author Organization [facility] Address [address] [place] [address] Care Team Providers Care Corn Sheller Name Role Phone Unavailable Primary Care Provider Unavailabl e Source Comments [facility] [employer],non-owned Affiliates and Associated Physician Practices is amultiple site organization consisting of ambulatory clinics and hospital sitesin [place], [place], [place] and [place]. This disclosure is being madepursuant to the Care Everywhere program and may not contain all information available regarding this patient. Last updated 18.[facility] [employer] Social History Tobacco Use Types Packs/Day Years Used Date Smoking Tobacco: Never Assessed Comments Unknown Sex and Gender Information Value Date Recorded Sex Assigned at Not on file Legal Sex Female 5:33 AM [employer] Gender Identity Not on file Sexual Orientation [...]
[2025-01-01 16:14] LABS: Hematocrit 46.4 % (37.0-47.0); Hemoglobin 16.7 g/dL (12.0-15.0); Immature Granulocyte Percent A 0.7 % (0-0.5); Lymphocytes Absolute Auto 0.76 K/mm3 (0.9-3.2); Mean Corpuscular HGB Conc 36.0 g/dl (32-36); Mean Corpuscular Hemoglobin 33.0 pg (26-34); Mean Corpuscular Volume 91.7 fl (80-100); Nucleated Red Blood Cells Absolute Auto 0.000 K/mm3 (0.0-0.012); Nucleated Red Blood Cells Perc 0.0 % (0.0-0.2); Platelet Count Result 236 k/mm3 (150-375); Red Blood Count 5.06 M/mm3 (4.2-5.4); White Blood Count 20.2 K/mm3 (4.5-10.0)
[2025-01-01] MEDS: SODIUM CHLORIDE 0.9% IV 1,000 ML 999 ML IV CONT (16:15)
[2025-01-01] MEDS: FAMOTIDINE 20 MG/2 ML VIAL IV PUSH (16:15)
[2025-01-01] MEDS: KETOROLAC 30 MG/ML VIAL (*BKC) 15 MG IV PUSH (16:15)
[2025-01-01] MEDS: ONDANSETRON INJ 4 MG/2 ML VIAL IV PUSH (16:15)
[2025-01-01 16:25] LABS: INR 1.0; Prothrombin Time 13.0 Seconds (11.1-14.7)
[2025-01-01 16:26] LABS: Partial Thromboplastin Time 20.5 Seconds (22.3-36.8)
[2025-01-01 16:31] LABS: BEDSIDEPREGUCG Negative (Negative)
[2025-01-01 16:32] LABS: Alanine Aminotransferase 43 U/L (6-35); Albumin Level 4.8 g/dL (3.5-5.1); Alkaline Phosphatase 87 U/L (38-126); Anion Gap 18 mmol/L (4-12); Aspartate Amino Transferase 63 U/L (14-36); Bilirubin,Total 2.1 mg/dL (0.2-1.3); Blood Urea Nitrogen 10 mg/dL (7-17); Calcium 9.2 mg/dL (8.4-10.2); Carbon Dioxide 22 mmol/L (22-30); Chloride 93 mmol/L (98-107); Estimated CRCL calculation 85 ml/min; Estimated Glomerular Filt Rate > 60; Glucose 217 mg/dL (65-110); Lipase 32 U/L (23-300); Potassium 3.6 mmol/L (3.4-5.0); Sodium 133 mmol/L (137-145); Total Protein 9.1 g/dL (6.3-8.2)
[2025-01-01 17:04] LABS: Schistocytes None Seen
--- NOTE | 2025-01-01 17:15 | PC.NURSE ---
This RN called lab and inquired about adding on ETOH to already sent labs and was told that lab would add it on.
--- NOTE | 2025-01-01 17:21 | PC.NURSE ---
This RN attempted to medicate pt. Pt was being taken to her scan. Will medicate pt when pt returns.
[2025-01-01 17:33] VITALS: O2SAT 98
[2025-01-01 17:34] VITALS: BP 186/123; PULSE 128; RESP 18; O2SAT 97
[2025-01-01] MEDS: PROCHLORPERAZINE EDISYLATE 10 MG/2 ML VIAL IV PUSH (17:34)
[2025-01-01 18:31] VITALS: BP 146/107; PULSE 114; RESP 17; O2SAT 100
[2025-01-01 19:34] VITALS: BP 174/100; PULSE 120; RESP 16; TEMP 36.4; O2SAT 98
== END 2025-01-01 19:33 | disposition home or self-care (01) ==
PROVIDERS: Emergency Medicine; Emergency Provider Emergency Medicine; PCP Family Medicine
DX: F10.10 Alcohol abuse, uncomplicated (principal); K29.70 Gastritis, unspecified, without bleeding; F12.90 Cannabis use, unspecified, uncomplicated
CPT/HCPCS: 36415; 74177; 80053; 81025; 82077; 83690; 85025; 85610; 85730; 96361; 96374; 96375; 99284; J0780; J1885; J2405; J7030; Q9967

== ENCOUNTER 2025-01-21 10:38 | Emergency (ER) | payer OTHER, SELFPAY ==
--- NOTE | 2025-01-21 10:45 | ED_ITS ---
HPI - Abdominal Pain General Chief Complaint: Nausea/Vomiting/Diarrhea Stated Complaint: Vomiting Time Seen by Provider: 01/21/25 10:49 Source: patient and RN notes reviewed Mode of arrival: ambulatory Limitations: no limitations History of Present Illness HPI narrative: [age] year old female with a history of alcoholism presented for complaint of nausea vomiting. Onset yesterday morning. Reports dizziness yesterday which is resolved. Says symptoms are better since onset, though she has not eaten today. Says last alcohol drink was about 30 days ago. She states she missed work yesterday and is requesting a work note and prescription for zofran refill. She is scheduled with her PCP in 2 weeks. Endorses chronic epigastric pain which unchanged. Denies Diarrhea constipation fevers or chills. Pt was seen in ER on 01/01 for vomiting. Related Data Allergies Allergy/AdvReac Type Severity Reaction Status Date / Time No Known Allergies Allergy Verified 10/07/24 08:37 Review of Systems Review of Systems: CONSTITUTIONAL: Denies body aches, fever, chills ENT: Denies rhinorrhea, congestion CARDIOVASCULAR: Denies chest pain, palpitations, or edema. RESPIRATORY: Denies cough or dyspnea. GASTROINTESTINAL: Endorses generalized/chronic abdominal pain, nausea, vomiting, Denies diarrhea,. hematochezia, melena, hematemesis GENITOURINARY: Denies dysuria, hematuria, or CVA tenderness. SKIN: Denies rash, itching, or wounds. MUSCULOSKELETAL: Denies back pain, joint pain NEUROLOGIC: Denies headache, numbness, tingling, or weakness. All systems reviewed & are unremarkable except as noted in HPI and below PMFSH Past Medical History Medical History Hypertension Preeclampsia cardiomyopathy Alcohol abuse Surgical History Surgical History History of anal fistulotomy History of incision and drainage I&D of perianal abscess on 12/30/23. History of section Family History Family History Father Diabetes mellitus Mother Chronic obstructive pulmonary disease Heart disease Grandparent Lung cancer Social History Social History Social History: Surrogate medical decision maker: Shannon Lopez, friend. Code status: Full code. Smoking status: Never smoker Alcohol intake: current Drinks per week: 28 Alcohol use details: Up to a 5th of whiskey a day. Substance use: never Substance use type: marijuana Other substance usage details: Daily Last use: 10/06/24 Do You Feel Safe in your Home?: Yes Lack of Transportation: No Lack of Food: Never True Current Housing: I Have Housing Concerned About Future Housing: No Difficulty Paying Gas/Electric Bills: No Difficulty Paying for Meds: No Currently Unemployed: No Education: High School Diploma/GED Difficulty w/ Childcare or Family Care: No Living arrangements: with family Additional living arrangements comments: Lives in [place]. Has a teenage son. Additional occupation/education comments: Works at [employer]. Spiritual care concerns: No Comments At time of signature, I have reviewed and agree with nursing past medical, surgical, social and family history unless otherwise noted. Please see nursing chart for further information. There is no relevant family history pertinent to the presenting complaint Exam Narrative: GENERAL: Well-appearing, and in no acute distress. EYES: EOMI. Conjunctivae normal. ENT: Mucous membranes pink and moist. CHEST: Clear to auscultation. HEART: Regular rate and rhythm. Normal peripheral pulses. ABDOMEN: abd soft, nondistended, normal active bowel sounds. Generalized tender abdomen; No guarding, rebound tenderness, asymmetry EXTREMITIES: Normal range of motion. No edema. SKIN: Warm, dry, no rash. Capillary refill normal. Normal skin turgor. NEURO: No focal deficits. Alert and oriented x3. PSYCH: Normal affect Course Course Emergency Course: Patient is aware of diagnosis, understands and agrees to treatment plan. Anticipatory guidance given. Patient agrees to follow-up as directed and is aware of reasons to seek care at the emergency department. Portions of this record may have been created with voice recognition software Level of Care: Express Care Visit MDM - Abdominal Pain MDM Narrative Medical decision making narrative: Discussed physical exam findings; pt reporting improvement in symptoms since onset and is requesting work note that she was here and Rx zofran. Discussed risk of electrolyte imbalance due to vomiting, she states she has potassium pills and will go to the ER if sx persist or worsen. Declines ER at this time. Per notes, CT completed 20 days ago, showed acute fatty infiltration of the l iver with hepatomegaly, no appendicitis, diverticulitis or intestinal obstruction, pancreas was reported as normal. Advised supportive measures and signs/symptoms to go to the ER. Pt is appropriate for outpt treatment and f/u. Differential Diagnosis Differential diagnosis: Likely abdominal pain, acute appendicitis, constipation, diverticulitis, gastroenteritis, pancreatitis, small bowel obstruction and other Discharge Plan Discharge Clinical Impression: Nausea and vomiting Patient Disposition: Home Condition: Stable Instructions: Antibiotic Form, Alcohol Use Disorder (ED) Additional Instructions: Stay hydrated. Take small sips of fluid containing electrolytes frequently. Clear liquids (broth, jello, tea, sprite, pedialyte) [place] foods (bananas, rice, applesauce, toast, crackers) Avoid fatty, greasy, fried or spicy foods. Limit dairy until symptoms are improved. Take zofran (ondansetron) as directed for nausea/vomiting *You should go to the hospital if you experience persistent nausea and vomiting that does not resolve and does not allow you to tolerate any food or fluids, fevers, increasing abdominal pain, persistent diarrhea, dizziness, fainting, or for any other concerns. Follow up with primary care provider in 3 days. Patient Language: [place]ian Prescriptions: New ondansetron 4 mg tablet,disintegrating 4 mg PO Q8H PRN (Reason: nausea and vomiting) Qty: 12 0RF No Action ondansetron 4 mg tablet,disintegrating 4 mg PO Q8H PRN (Reason: nausea and vomiting) Qty: 10 0RF chlordiazepoxide HCl 25 mg capsule 25 mg PO TID PRN (Reason: alcohol withdrawal) Qty: 15 0RF Rx Instructions: Take 50 mg (2 pills) every 6 hours some of her stay, 25 mg (1 pill) every 6 hours on the 2nd day, 25 mg every 12 hours on the 3rd day and 25 mg once on the 4th day. Follow-up/Referrals: Ang,MD Eren [Primary Care Provider] - Stand Alone Forms: Work/School Release IP Time of Disposition: 10:59
[2025-01-21 10:47] VITALS: BP 162/115; PULSE 105; RESP 16; TEMP 35.9; O2SAT 99
--- OUTSIDE RECORDS SUMMARY | 2025-01-21 11:06 | XMS_ITS | Patient Health Record ---
Author Organization [facility] Address [address] [facility] [address] [place] [address] Care Team Providers Care Pest Controller Name Role Phone Yordy Mcnally Unavailable [phone] Reason For Referral No Information Medications Medication SIG (Take, Route, Fr equency, Duration) Notes Start Date End Date Status traZODone HCl 100 MG Oral 05/06/2018 Active ALPRAZolam 0.5 MG Oral 05/06/2018 A ctive FLUoxetine HCl 10 MG Oral 05/06/2018 Active traZODone HCl 50 MG Oral 05/06/2018 Active ALPRAZolam 1 MG Oral 05/06/2018 Act matthias Plan Of Treatment No Information Insurance Providers Payer Name Payer Address Payer Phone Subscriber Number Group Number Insured Name Patient Relationship to Insured Coverage Start Date Coverage End Date [facility] Medicaid Replacement - [employer]mo [address] [place] [phone] [id number] XIANG HOFFMAN Self - patient is the insured
--- OUTSIDE RECORDS SUMMARY | 2025-01-21 11:06 | XMS_ITS | Referral Summary ---
Author Organization [address] Address [address] [place] [id number] Care Team Providers Care Management Scientist Name Role Phone Awilda Ramires MD Unavailable [phone] Eren Fry MD Primary Care Provider [phone] Lui Oliva MD Unavailable [phone] Encounters Date Type Department Care Team Description 01/07/2025 Telephone [facility] Surgery [address] [place] [address] Floor 5 [place] [address] Shanon Blount, RMMarco CPAP Follow Up 11/27/2024 9:49 AM CDT - 11/29/2024 9:01 AM CDT Hospital Encounter [facility] 1 [place] [address] Sam Estrada MD Petters, Ekanga Sunday, MD Fasick, Victoria Rose, DO Alcohol withdrawal syndrome without complication (HCC) (Primary Dx); Alcoholic ketoacidosis; Elevated lactic acid level; Elevated blood sugar; Colitis Discharge Disposition: Left Against Medical Advice 11/28/2024 AM[facility] WH Enrollment [facility] 1 [place], [place] [phone] Sheela Sparks 11/27/2024 Documentation [facility] 1 [place], [place] [phone] Sheela Sparks 11/24/2024 Telephone [facility] Surgery [address] [place] [address] Floor 5 [place] [address] Morelia Garza BS Cancel (6/2/25 surgery ) 11/04/2024 11:59 PM CDT Anesthesia Event [facility] Operating Room [address] [place] [address] Mohan Durand NP 11/21/2024 Telephone [facility] Surgery [address] [facility] Floor 5 [place] [address] Kaylin Briceño, RMA 11/20/2024 Telephone [facility] Surgery [address] [facility] Floor 5 [place] [address] Shanon Blount, RMA Procedure 11/19/2024 Telephone [facility] Surgery [facility] Floor 5 [place] [address] Shanon Blount, RMA Surgery Confirmation 11/04/2024 Telephone [facility] Surgery [address] [place] [address] Medical Office Building 4 [address] [place] [phone] Jennifer Angel RN 11/04/2024 9:39 AM CDT - 11/04/2024 11:59 PM CDT Hospital Encounter [facility] [address] [place] [address] Discharge Disposition: Discharge to home or self care 11/04/2024 8:52 AM CDT - 11/04/2024 11:59 PM CDT Hospital Encounter [facility] [address] [place] [address] Discharge Disposition: Discharge to home or self care 11/04/2024 8:50 AM CDT - 11/04/2024 11:59 PM CDT Hospital Encounter [facility] [address] [place] [address] Discharge Disposition: Discharge to home or self care 11/04/2024 Orders Only [facility] Surgery [facility] Floor 5 [place] [phone] Robert Martinez MD 11/04/2024 8:49 AM CDT - 11/04/2024 11:59 PM CDT Hospital Encounter [facility]) [address] [place] [address] Discharge Disposition: Discharge to home or self care 10/31/2024 3:00 PM CDT Office Visit [facility] Surgery [address] [place] [address] [place] [address] Lui Oliva MD Anal fistula (Primary Dx); Fistula from Last 3 Months Allergies No known active allergies Medications traZODone (DESYREL) 50 mg tabletIndicatio ns:insomnia associated with depression Take 1 tablet (50 mg total) by mouth nightly Active phentermine 37.5 mg capsule Take 1 capsule (37.5 mg total) by mouth every morning 12/02/2024 Active Active Problems Problem Noted Date Diagnosed [...] Tobacco: Never Tobacco Cessation:Counseling Given: Not Answered [facility] Utilities Answer Date Recorded In the past 12 months has [employer], oil, or water [employer] threatened to shut off services in your [...] week 11/28/2024 How often do you attend [facility] or scientology services? Never 11/28/2024 Do you belong to any clubs o r organizations such as nondenominational groups, unions, fraternal or athletic groups, or [...] any time in the past 12 m [facility], were you homeless or living in a half-way (including now)? No 11/28/2024 Personal Safety Answer Date Recorded Have you ever been in or are you currently in a harmful physical or emotional relationship or is someone making you feel afraid or unsafe? 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 Gender Identity Not on file Sexual Orientation [...] Description 01/23/2025 7:30 AM CDT Hospital Encounter [facility] Surgery at [address] [address] Lui Oliva MD [address] [facility] [phone] [place] [address] 01/23/2025 7:30 AM CDT - 01/23/2025 8:00 AM CDT Surgery [facility] Surgery at [address] [address] Lui Oliva MD [address] [facility] [phone] [place] [address] EXAM UNDER ANESTHESIA - RECTUM Scheduled Procedures [...] OUTSIDE REFERENCE Routine 11/04/2024 8:49 AM CDT from Last 3 Months Results * Lactate (11/29/2024 5:15 AM CDT) Lactate 1.1 0.7 - 2.0 mmol/L Blood 11/29/2024 5:15 AM CDT 11/29/2024 5:19 AM CDT Gwen James Martinaick DO LAB BLOOD ORDERABLES Fin al Result [facility] ([place] 1 [facility] [address] [place] [address] * eGFR (11/29/2024 5:15 AM CDT) eGFR [...] CDT 11/29/2024 5:19 AM CDT Gwen Erika Martinaick DO LAB BLOOD ORDERABLES Fin al Result [facility] ([place]) 1 [facility] [address] [place] [address] * Differential, auto (11/29/2024 5:15 AM CDT) [...] Fin al Result [facility] ([place]) 1 [facility] [employer] [place] [address] * CBC with auto differential (11/29/2024 5:15 [...] Fin al Result [facility] ([place]) 1 [facility] [place] [address] * Phosphorus (11/29/2024 5:15 AM CDT) Phosphorus, pl 3.3 2.3 - 4.5 mg/dL Blood 11/29/2024 5:15 AM CDT 11/29/2024 5:19 AM CDT Gwen Max LAB BLOOD ORDERABLES Fin al Result [facility] ([place]) 1 [place] [address] * Magnesium (11/29/2024 5:15 AM CDT) Magnesium 1.8 1.4 - 2.5 mg/dL Blood 11/29/2024 5:15 AM CDT 11/29/2024 5:19 AM CDT Gwen Max LAB BLOOD ORDERABLES Fin al Result Performing Organization Address City/[facility] Co de Phone Number [facility] ([place]) 1 [place] [address] * (ABNORMAL) Comprehensive metabolic panel (11/29/2024 5:15 [...] Fin al Result [facility] ([place]) 1 [facility] [place] [address] * CTA Abdomen Pelvis (11/28/2024 9:16 PM [...] Parmjit Flor M.D. REBEKAH: REBEKAH Report ID: [id number] Reading Location: [id number] Procedure Note Parmjit Flor MD - 11/29/2024 [...] Parmjit Flor M.D. REBEKAH: REBEKAH Report ID: [id number] Reading Location: [id number] Gwen Erika Max DO IMG CT PROCEDURES Final Result * Sepsis Lactate w/ Reflex (11/28/2024 6:14 PM CDT) Sepsis Lactate 1.8 0.7 - 2.0 mmol/L Blood 11/28/2024 6:14 PM CDT 11/28/2024 6:17 PM CDT Gwen James Mansoor WAGNER LAB BLOOD ORDERABLES Fin al Result [facility] [place]) 1 [facility] [employer] [place] [address] * Erythrocyte sedimentation rate (11/28/2024 6:14 PM CDT) Erythrocyte sedimentation rate 9 1 - 20 mm/hr Blood 11/28/2024 6:14 PM CDT 11/28/2024 6:17 PM CDT Gwen Max DO LAB BLOOD ORDERABLES Fin al Result [facility] [place]) 1 [facility] [employer] [place] [address] * (ABNORMAL) Lactate (11/28/2024 9:37 AM CDT) Lactate 4.6(C) 0.7 - 2.0 mmol/L Comment:Critical result call ed to and read back by Louisa Bryant rn (u) on 11/28/2024 09:50:27 CDT to trang alberts. Blood 11/28/2024 9:37 AM CDT 11/28/2024 9:44 AM CDT Gwen James Martinanatividad DO LAB BLOOD ORDERABLES Fin al Result [facility] [place]) 1 [facility] [address] [place] [address] * eGFR (11/28/2024 9:37 AM CDT) eGFR [...] CDT 11/28/2024 9:44 AM CDT Gwen James Martinanatividad DO LAB BLOOD ORDERABLES Fin al Result [facility] ([place]) 1 [facility] [address] [place] [address] * Procalcitonin (11/28/2024 9:37 AM CDT) Procalcitonin <0.05 <=0.25 ng/mL Comment:Testing performed by : [facility], [facility]5 [facility], [place]., [address] Blood 11/28/2024 9:37 AM CDT 11/29/2024 2:25 PM CDT Gwen Max DO LAB BLOOD ORDERABLES Fin al Result Performing Organization Address City/[facility]/ZIP Co de Phone Number [facility] ([place] 1 [facility] [place] [address] * CRP (acute phase) (11/28/2024 9:37 AM CDT) CRP 6.9 <=10.0 mg/L Blood 11/28/2024 9:37 AM CDT 11/28/2024 4:35 PM CDT Gwen Max DO LAB BLOOD ORDERABLES Fin al Result Performing Organization Address [facility] Co de Phone Number [facility] ([place] 1 [facility] [place] [address] * (ABNORMAL) Phosphorus (11/28/2024 9:37 AM CDT) Phosphorus, pl 1.7(L) 2.3 - 4.5 mg/dL Blood 11/28/2024 9:37 AM CDT 11/28/2024 9:44 AM CDT Gwen Max DO LAB BLOOD ORDERABLES Fin al Result Performing Organization Address City/[facility] Co de Phone Number [facility] ([place] 1 [facility] [place] [address] * Magnesium (11/28/2024 9:37 AM CDT) Magnesium 1.7 1.4 - 2.5 mg/dL Blood 11/28/2024 9:37 AM CDT 11/28/2024 9:44 AM CDT Gwen Max DO LAB BLOOD ORDERABLES Fin al Result Performing Organization Address City/[facility]/ZIP Co de Phone Number [facility] ([place] 1 [facility] [place] [address] * (ABNORMAL) Comprehensive metabolic panel (11/28/2024 9:37 [...] 3.8 3.5 - 5.0 g/dL [facility] ([place]) Alk phos 68 40 - 130 Units/L [facility] ([place]) ALT 29 7 - 45 Units/L [facility] ([place]) AST 36 10 - 45 Units/L [facility] ([place]) Blood 11/28/2024 9:37 AM CDT 11/28/2024 9:44 AM CDT us Gwen Max DO LAB BLOOD ORDERABLES Fin al Result [facility] ([place] 1 [facility] Department [place] [address] * eGFR (11/28/2024 4:42 AM CDT) eGFR [...] BLOOD ORDERABLES Pam l Result [facility] ([place] 1 [facility] [place] [address] * (ABNORMAL) Differential, auto (11/28/2024 4:42 AM [...] LAB BLOOD ORDERABLES Pam melisa Result [facility] ([place]) 1 [facility] [place] [address] * (ABNORMAL) CBC with auto differential (11/28/2024 [...] RDW SD 43.0 35.7 - 48.1 fL [facility]) NRBC abs 0.00 0.00 - 0.01 K/cumm [facility] ([place]) Blood 11/28/2024 4:42 AM CDT 11/28/2024 4:53 AM CDT us Kaylin MONZON LAB BLOOD ORDERABLES Pam vincent Result [facility] ([place]) 1 [facility] [place] [address] * Magnesium (11/28/2024 4:42 AM CDT) Magnesium 1.8 1.4 - 2.5 mg/dL Blood 11/28/2024 4:42 AM CDT 11/28/2024 4:54 AM CDT us Param Crespo MD LAB BLOOD ORDERABLES Fi nal Result [facility] ([place]) 1 [facility] Department [place] [address] * (ABNORMAL) Comprehensive metabolic panel (11/28/2024 4:42 AM CDT) Sodium 136 135 - 145 mmol/L Potassium, pl 2.9(C) 3.3 - 4.9 mmol/L [facility] ([place]) Comment:Critical Result call ed by [email or web address] at 2024-11-28 05:35:10. Result Read Back by Willa Viera [facility] Chloride 95(L) 97 - 110 mmol/L [facility]ER [...] ([place]) AST 26 10 - 45 Units/L [facility] ([place]) Blood 11/28/2024 4:42 AM CDT 11/28/2024 4:54 AM CDT Kaylin MONZON LAB BLOOD ORDERABLES Pam l Result [facility] ([place] 1 [facility] [place] [address] * CT Chest PE (CTA) Abdomen Pelvis [...] by Gregory Pablo M.D. JR: Report ID: [id number] Reading Location: [place] [address] Procedure Note Gregory Pablo MD - 11/27/2024 [...] by Gregory Pablo M.D. JR: Report ID: [id number] Reading Location: [place] [address] us Kaylin MONZON IMG CT PROCEDURES Final R esult * (ABNORMAL) Sepsis Lactate w/ Reflex (11/27/2024 7:28 PM CDT) Pathologist [facility] [place] Sepsis Lactate 2.7(H) 0.7 - 2.0 mmol/L Blood 11/27/2024 7:28 PM CDT 11/27/2024 7:31 PM CDT us Sam Estrada MD LAB BLOOD ORDERABLE S Final Result [facility] [place] 1 [facility] [place] [address] * Ethanol (11/27/2024 6:09 PM CDT) Pathologist [facility] Ethanol <10 <=10 mg/dL Comment: Interpretive Data Legal limit of intoxication > or = 80 mg/dL Levels > or = 400 mg/dL are potentially TOXIC. Current interpretive data was last revised on 2018. Blood 11/27/2024 6:09 PM CDT 11/27/2024 6:12 PM CDT us Kaylin MONZON LAB BLOOD ORDERABLES Pam melisa Result [facility] ([place] 1 [facility] [place] [address] * (ABNORMAL) Drugs of Abuse Screen, Urine [...] ur Screen Positive, presumptive (A) CutOff 200ng/mL [facility] ([place]) Comment: Interpretive Data - Barbiturates: [...] reviewed 2023. Urine Creatinine 64 mg/dL [facility] ([place]) Comment: Interpretive Data Urine Creatinine: < 10 mg/dL is extremely dilute = or > 10 but < 20 mg/dL is dilute = or > 20 mg/dL is normal Current Interpretive Data was last revised on 2017. Urine 11/27/2024 6:08 PM CDT 11/27/2024 6:14 PM CDT Narrative [facility] ([place] - 11/27/2024 6:53 PM CDT Drug of Abuse screening is performed by immunoassay for medical purposes only. This is not to be used for Pain Management purposes. us Kaylin MONZON LAB URINE ORDERABLES Pam l Result [facility] ([place]) 1 [facility] [address] [place] [address] * (ABNORMAL) Sepsis Lactate w/ Reflex (11/27/2024 4:32 PM CDT) Sepsis Lactate 4.4(C) 0.7 - 2.0 mmol/L Comment:Critical result call ed to and read back by Jenna Segura(er) on 11/27/2024 16:52:43 CDT to Kathleen Caputo. Blood 11/27/2024 4:32 PM CDT 11/27/2024 4:51 PM CDT us Sam Estrada MD LAB BLOOD ORDERABLE S Final Result [facility] ([place] 1 [facility] [employer] [place] [address] * Blood culture Blood Peripheral (11/27/2024 2:53 PM CDT) Report Final Report: No growth Comment:Testing performed by : [facility], [address] [facility], [place]., [address] Blood (Peripheral) 11/27/2024 2:53 PM CDT 11/27/2024 [...] performance characteristics have been verified by the [facility] Microbiology Laboratory. For questions about this culture, contact the Microbiology Laboratory at [phone]. Interpretive data was last revised on 24. us Sam Estrada MD LAB MICROBIOLOGY - GENERAL ORDERABLES Final Result [facility] URIEL MESERET) 1 [facility] [place] [address] * Blood culture Blood Peripheral (11/27/2024 2:53 PM CDT) Report Final Report: No growth Comment:Testing performed by : [facility], [address] [facility], [place]., [address] Blood (Peripheral) 11/27/2024 2:53 PM CDT 11/27/2024 [...] performance characteristics have been verified by the [facility]. For questions about this culture, contact the Microbiology Laboratory at [phone]. Interpretive data was last revised on 24. us Sam Estrada MD LAB MICROBIOLOGY - GENERAL ORDERABLES Final Result [facility] [place] 1 [facility] [place] [address] * XR Chest 1 View (11/27/2024 1:58 [...] Jayce Cano M.D. MM: MM Report ID: [id number] Reading Location: [id number] Procedure Note Jayce Cano MD - 11/27/2024 [...] Jayce Cano M.D. MM: MM Report ID: [id number] Reading Location: [id number] us Sam Estrada MD IMG XR PROCEDURES [...] tendency for uric acid stone formation. Source: [facility] [employer] Current Interpretive Data was last revised on 2017 Protein, ur ql Negative Negative [facility] ([place]) Glucose, ur ql Negative Negative [facility] ([place]) Ketones, ur 1+(A) Negative [facility] ([place]) Bilirubin, ur Negative Negative [facility] [...] ORDERABLES Final Result [facility] ([place]) 1 [facility] [place] [address] * (ABNORMAL) Sepsis Lactate w/ Reflex (11/27/2024 12:58 PM CDT) Sepsis Lactate 8.2(C) 0.7 - 2.0 mmol/L Comment:Critical result call ed to and read back by Connor De Dios RN (ER) on 11/27/2024 13:05:20 CDT to Rose Marie Bryant. Blood 11/27/2024 12:5 8 PM CDT 11/27/2024 1:01 PM CDT us Sam Estrada MD LAB BLOOD ORDERABLE S Final Result Performing Organization Address City/[facility]/ZIP Co de Phone Number [facility] ([place]) 1 [facility] [address] [place] [address] * eGFR (11/27/2024 12:58 PM CDT) eGFR [...] MD LAB BLOOD ORDERABLE S Final Result [facility] ([place]) 1 [facility] [employer] [place] [address] * (ABNORMAL) Basic metabolic panel (11/27/2024 12:58 PM CDT) Sodium 134(L) 135 - 145 mmol/L Potassium, pl 3.6 3.3 - 4.9 mmol/L [facility] ([place]) Chloride 92(L) 97 - 110 mmol/L [facility] ([place]) CO2 22 22 - 32 mmol/L [facility] ([place]) Anion gap 20(H) 2 - 15 mmol/L [facility] ([place]) BUN 12 6 - 25 mg/dL [facility] ([place]) Creatinine 0.57(L) 0.60 - 1.10 mg/dL [facility] ([place]) Glucose 93 70 - 199 mg/dL [facility] ([place]) Comment: Interpretive Data Fasting glucose [...] 2022. Calcium 8.6 8.5 - 10.3 mg/dL [facility] ([place]) Blood 11/27/2024 12:5 8 PM CDT 11/27/2024 1:01 PM CDT us Sam Estrada MD LAB BLOOD ORDERABLE S Final Result [facility] ([place] 1 [facility] Department of [facility] [place], [place] [id number] * hCG, blood, quantitative (11/27/2024 12:57 PM [...] Edited Result - Final Performing Organization Address City/[facility] Co de Phone Number [facility] ([place]) 1 [facility] [place] [address] * (ABNORMAL) Blood gas, venous (11/27/2024 12:57 PM CDT) pH, Venous 7.45(H) 7.32 - 7.43 PCO2, Venous 35(L) 40 - 50 mmHg [facility] ([place]) PO2, Venous 71 mmHg [facility] A ([place]) Comment: Interpretive Data No reference range established. Current interpretive data was last revised 2017. HCO3 Venous, Calculated 24 20 - 30 mmol/L [facility] ([place]) BE, venous 1 mmol/L [facility] ([place]) Comment: Interpretive Data No Reference Range Established Current Interpretive Data was last revised on 2017. Blood 11/27/2024 12:5 7 PM CDT 11/27/2024 1:19 PM CDT Sam Estrada MD LAB BLOOD ORDERABLE S Final Result Performing Organization Address [facility] Co de Phone Number [facility] ([place]) 1 [facility] [place] [address] * POCT glucose (11/27/2024 11:56 AM CDT) Glucose, POC 116 70 - 199 mg/dL Blood 11/27/2024 11:5 6 AM CDT 11/27/2024 11:56 AM CDT aSm Estrada MD LAB POCT ORDERABLES - DEVICE Final Result [facility] CARL) 1 [facility] [place] [address] * ECG 12 lead (11/27/2024 10:17 AM CDT) 11/27/2024 10:1 7 AM CDT Narrative [facility] - 11/27/2024 11:43 AM CDT Vent Rate: 136 bpm RR Interval: 440 msec PA Interval: 139 msec QRS Duration: 86 msec QT Interval: 330 msec QTC Interval: 410 msec P-R-T [place]: 34 - 30 - 10 degrees IMPRESSION: SINUS TACHYCARDIA NONSPECIFIC ST \T\ T-WAVE ABNORMALITY ABNORMAL RHYTHM ECG Electronically Signed By: Peewee Connors MD Sam Estrada MD ECG ORDERABLES Fin al Result Performing Organization Address City/[facility] Co de Phone Number [facility] [employer] [facility] * eGFR (11/27/2024 9:53 AM CDT) [...] of Race in Diagnosing Kidney Disease, JASN 202). The CKD-EPI equation should not be used for patients with unstable renal function and has not been validated in children and those over 70. Current interpretive data was last reviewed 2021. Blood 11/27/2024 9:53 AM CDT 11/27/2024 10:03 AM CDT us Sam Estrada MD LAB BLOOD ORDERABLE S Final Result [facility] ([place]) 1 [facility] [place] [address] * Beta-hydroxybutyrate (11/27/2024 9:53 AM CDT) Beta-Hydroxybut yrate 0.3 <=0.5 mmol/L Comment:Testing performed by : [facility], [address] [place] [address]., [address] Blood 11/27/2024 9:53 AM CDT 11/27/2024 3:34 PM CDT us Sam Estrada MD LAB BLOOD ORDERABLE S Final Result Performing Organization Address [facility] Co de Phone Number [facility] ([place]) 1 [facility] [place] [address] * (ABNORMAL) CBC with auto differential (11/27/2024 [...] S Final Result [facility] ([place]) 1 [facility] [place] [address] * (ABNORMAL) Manual Differential (11/27/2024 9:53 AM [...] 1.0(H) 0.0 - 0.0 % [facility] ([place]) Variant lymph pct 1.0(H) 0.0 - 0.0 % [facility] ([place]) RBC morphology Consistent with RBC Indicies [facility] ([place]) Platelet estimate Adequate CE [facility] ([place]) Blood 11/27/2024 9:53 AM CDT 11/27/2024 10:03 AM CDT Sam Estrada MD LAB BLOOD ORDERABLE S Final Result Performing Organization Address [facility] Co de Phone Number [facility] ([place] 1 [facility] [address] [place] [address] * Protime-INR (11/27/2024 9:53 AM CDT) PT 12.3 9.7 - 13.0 sec [facility] ([place]) INR 1.14 0.90 - 1.20 [facility] ([place]) Comment: Interpretive data Oral anticoagulant therapeutic ranges: Venous thromboembolism prophylaxis or treatment: 2.0-3.0 CARDIOLOGY Standard range: 2.0-3.0 High-intensity range: 2.5-3.5 Refer to indication-specific guidelines for appropriate target ranges for prosthetic heart valve replacement. Current interpretive data was last revised on 2019. Blood 11/27/2024 9:53 AM CDT 11/27/2024 10:03 AM CDT Sam Estrada MD LAB BLOOD ORDERABLE S Final Result Performing Organization Address City/[facility] Co de Phone Number [facility] ([place] [facility] [place] [address] * Magnesium (11/27/2024 9:53 AM CDT) Magnesium 1.4 1.4 - 2.5 mg/dL Blood 11/27/2024 9:53 AM CDT 11/27/2024 10:03 AM CDT Sam Estrada MD LAB BLOOD ORDERABLE S Final Result Performing Organization Address [facility] [facility] de Phone Number ZAID TREVINO ([place]) [address] [place] [address] * Lipase (11/27/2024 9:53 AM CDT) Lipase 12 10 - 99 Units/L Blood 11/27/2024 9:53 AM CDT 11/27/2024 10:07 AM CDT Sam Estrada MD LAB BLOOD ORDERABLE S Final Result Performing Organization Address [facility] Phone Number ZAID TREVINO ([place]) [address] [place] [address] * Hemoglobin A1c (11/27/2024 9:53 AM CDT) Hgb A1C 5.6 4.0 - 5.6 % Estimated Average Glucose 114 mg/dL ZAID TREVINO ([place]) Comment: The ADA recommends reporting an estimated Average Glucose (eAG) with all Hemoglobin A1c results using the equation derived from a study of 507 normal and diabetic adults. Minority populations were underrepresented and children were not included. (Diabetes Care 31:6581-3055, 2008). The eAG is not equivalent to a fasting glucose. Blood 11/27/2024 9:53 AM CDT 11/27/2024 1:47 PM CDT Sam Estrada MD LAB BLOOD ORDERABLE S Final Result Performing Organization Address [facility] Co de Phone Number ZAID TREVINO ([place]) [address] [place] [address] * (ABNORMAL) Comprehensive metabolic panel (11/27/2024 9:53 AM CDT) Sodium 134(L) 135 - 145 mmol/L Potassium, pl 3.3 3.3 - 4.9 mmol/L [facility] ([place]) Chloride 87(L) 97 - 110 mmol/L [facility] ([place]) CO2 16(L) 22 - 32 mmol/L [...] MD LAB BLOOD ORDERABLE S Final Result [facility] ([place]) [address] [facility] [place] [address] * CT Body Outside Reference (11/04/2024 9:39 AM CDT) Impressions [facility] - 11/04/2024 9:39 AM CDT These images are for Reference purposes only and have not been reviewed by [facility] Radiology. There will be no report generated by a [facility] Radiologist. Narrative [facility] - 11/04/2024 9:39 AM CDT EXAMINATION: Images For Reference Purposes Only Lui Oliva MD IMG CT PROCEDURES Final Result Performing Organization Address [facility] de Phone Number [email or web address] * CT Body Outside Reference (11/04/2024 8:52 AM CDT) Impressions [facility] - 11/04/2024 8:52 AM CDT These images are for Reference purposes only and have not been reviewed by [facility]. There will be no report generated by a [facility] Radiologist. Narrative [facility] - 11/04/2024 8:52 AM CDT EXAMINATION: Images For Reference Purposes Only Lui Oliva MD IMG CT PROCEDURES Final Result Performing Organization Address [facility] de Phone Number [email or web address] * CT Body Outside Reference (11/04/2024 8:50 AM CDT) Impressions [facility] - 11/04/2024 8:50 AM CDT These images are for Reference purposes only and have not been reviewed by [facility]. There will be no report generated by a [facility] Radiologist. Narrative [facility] - 11/04/2024 8:50 AM CDT EXAMINATION: Images For Reference Purposes Only Lui Oliva MD IMG CT PROCEDURES Final Result Performing Organization Address [facility] de Phone Number [email or web address] * CT Body Outside Reference (11/04/2024 8:49 AM CDT) Impressions [facility] - 11/04/2024 8:49 AM CDT These images are for Reference purposes only and have not been reviewed by [facility] Radiology. There will be no report generated by a [facility] Radiologist. Narrative [facility] - 11/04/2024 8:49 AM CDT EXAMINATION: Images For Reference Purposes Only us Lui Oliva MD IMG CT PROCEDURES Final Result [facility] from Last 3 Months Additional Health Concerns Active Problems Noted Date Diagnosed Date Autogenerated Problem 12/04/2024 Insurance [facility] Advance Directives For more information, please contact: [phone] * Full Code (Latest Code Status on File) Date Activated Date Inactivated Comments 11/27/2024 10:24 PM 11/29/2024 1:02 PM * Full Code Date Activated Date Inactivated Comments 11/27/2024 10:24 PM 11/27/2024 10:24 PM Care Teams Management Scientist Relationship Specialty Start Date End Date Eren Fry MD [address] [facility] [place] [address] PCP - General Family Medicine 10/30/24 Awilda Ramires MD [address] [place] [address] Consulting Physician Surgery 09/16/24 Lui Oliva MD [phone] [place] [address] Surgeon Colon and Rectal Surgery 11/03/24
--- OUTSIDE RECORDS SUMMARY | 2025-01-21 11:06 | XMS_ITS | Clinical Summary ---
Author Organization [facility] Address [address] [place] [address] Care Team Providers Care [employer] Name Role Phone Unavailable Primary Care Provider Unavailabl e Source Comments [facility],non-owned Affiliates and Associated Physician Practices is amultiple site organization consisting of ambulatory clinics and hospital sitesin [place], [place], [place] and [place]. This disclosure is being madepursuant to the Care Everywhere program and may not contain all information available regarding this patient. 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
--- OUTSIDE RECORDS SUMMARY | 2025-01-21 11:06 | XMS_ITS | Clinical Summary ---
Author Organization [address] Address [address] [place] [phone] Care Team Providers Care Rack Puller Name Role Phone Awilda Ramires MD Unavailable [phone] Eren Fry MD Primary Care Provider [phone] Lui Oliva MD Unavailable [phone] Allergies No known active allergies Medications traZODone [...] Type Department Care Team Description 01/07/2025 Telephone [facility] Surgery [address] [place] [address] Floor 5 [place] [address] Shanon Blount, LATRELL CPAP Follow Up 11/28/2024 [facility] Enrollment [facility] Warm Hand Off Program [address] [place] [address] Sheela Sparks 11/27/2024 9:49 AM CDT - 11/29/2024 9:01 AM CDT Hospital Encounter [facility] Medical Care 1 [place] [address] Sam Estrada MD Petters, MD Mansoor Neil Victoria Rose, DO Alcohol withdrawal syndrome without complication (HCC) (Primary Dx); Alcoholic ketoacidosis; Elevated lactic acid level; Elevated blood sugar; Colitis Discharge Disposition: Left Against Medical Advice 11/27/2024 Documentation [facility] Warm [facility] Off [facility] 1 [place], [place] [phone] Sheela Sparks 11/24/2024 Telephone [facility] Surgery [address] [place] [address] Floor 5 [place] [address] Morelia Garza BS Cancel (11/24/24 surgery ) 11/21/2024 Telephone [facility] Surgery [address] [place] [address] Floor 5 [place] [address] Kaylin Briceño, RMA 11/20/2024 Telephone [facility] Surgery [address] [place] [address] Floor 5 [place] [address] Shanon Blount, RMA Procedure 11/19/2024 Telephone [facility] Surgery [address] [place] [address] 5 [place] [address] Shanon Blount, RMA Surgery Confirmation 11/04/2024 11:59 PM CDT Anesthesia Event [facility] Operating Room [id number] [place] [address] Mohan Durand NP 11/04/2024 9:39 AM CDT - 11/04/2024 11:59 PM CDT Hospital Encounter [facility] [address] [place] [address] Discharge Disposition: Discharge to home or self care 11/04/2024 8:52 AM CDT - 11/04/2024 11:59 PM CDT Hospital Encounter [facility]) [address] [place] [address] Discharge Disposition: Discharge to home or self care 11/04/2024 8:50 AM CDT - 11/04/2024 11:59 PM CDT Hospital Encounter [facility] ([facility]) [address] [place] [address] Discharge Disposition: Discharge to home or self care 11/04/2024 8:49 AM CDT - 11/04/2024 11:59 PM CDT Hospital Encounter [facility] ([facility]) [address] [place] [address] Discharge Disposition: Discharge to home or self care 11/04/2024 Telephone [facility] Surgery [facility] Medical Office Building [address] [place] [phone] Jennifer Angel RN 11/04/2024 Orders Only [facility] [address] [facility] Floor 5 [place] [phone] Robert Martinez MD 10/31/2024 3:00 PM CDT Office Visit [facility] Surgery [address] [facility] 2nd Floor [address] [place] [address] Lui Oliva MD Anal fistula (Primary Dx); [...] Tobacco: Never Tobacco Cessation:Counseling Given: Not Answered [facility] Utilities Answer Date Recorded In the past 12 months has e [employer], oil, or water [employer] threatened to shut off services in your [...] often do you attend chur ch or islam services? Never 11/28/2024 Do you belong to any clubs o r organizations such as alevism groups, unions, fraternal or athletic groups, or [...] any time in the past 12 m [place], were you homeless or living in a custodial (including now)? No 11/28/2024 Personal Safety Answer Date Recorded Have you ever been in or are you currently in a harmful physical or emotional relationship or is someone making you feel afraid or unsafe? Denies 11/27/2024 Comments No Sex and Gender Information Value Date Recorded Sex Assigned at Not on file Legal Sex Female 1:02 AM DAY GUARD Gender Identity Not on file Sexual Orientation [...] Description 01/23/2025 7:30 AM CDT Hospital Encounter [facility] Surgery at [address] [phone] Lui Oliva MD [address] [facility] [phone] [place] [address] 01/23/2025 7:30 AM CDT - 01/23/2025 8:00 AM CDT Surgery [facility] Surgery at [address] [phone] Lui Oliva MD [address] [facility] [phone] [place] [address] EXAM UNDER ANESTHESIA - RECTUM Scheduled Procedures [...] <65 (1 of 2 - PCV) 2000 HPV Vaccines (1 - 3-dose SCDM series) 2008 Covid-19 Vaccine (2 - season) 02/24/202404/2021 Influenza Vaccine (#1) 2025 Goals Goal Patient Goal Type Associated Problems [...] BLOOD ORDERABLES Fin al Result [facility] (ACWORTH) [address] [facility] Department [place] [address] * eGFR (11/29/2024 5:15 AM [...] BLOOD ORDERABLES Fin al Result [facility] (ACWORTH) [address] [facility] Department [place] [address] * Differential, auto (11/29/2024 5:15 AM CDT) [...] revised on 2017. Monocyte pct 5.8 % [facility] (SP[facility]) Comment: Interpretive Data Percent cell [...] revised on 2017. Basophil pct 0.4 % [facility] (SP[facility]) Comment: Interpretive Data Percent cell count reference ranges are not reported, since discordance with absolute values may lead to misinterpretation of CBC data. Current Interpretive Data was last revised on 2017. Blood 11/29/2024 5:15 AM CDT 11/29/2024 5:19 AM CDT us Gwen Max DO LAB BLOOD ORDERABLES Fin al Result [facility] (ACWORTH) [address] [facility] Department [place] [address] * CBC with auto differential (11/29/2024 5:15 AM CDT) WBC 6.74 3.80 - 9.90 K/cumm Hgb 14.5 11.9 - 15.5 g/dL [facility] ([facility]) Hct 41.3 35.6 - 45.5 % [facility] ([facility]) Plt 153 150 - 400 K/cumm [facility] ([facility]) MPV 10.1 9.1 - 12.3 fL [facility] (SPENCER) RBC 4.35 3.90 - 5.20 M/cumm [facility] (SPENCER) MCV 94.9 81.3 - 96.4 fL [facility] MCH 33.3 27.1 - 33.3 pg [facility] ([facility]) MCHC 35.1 32.3 - 35.7 g/dL [facility] ([facility]) RDW CV 12.8 11.1 - 14.9 % [facility] RDW SD 44.2 35.7 - 48.1 fL [facility] ([facility]) NRBC abs 0.00 0.00 - 0.01 K/cumm [facility] (SP[facility]) Blood 11/29/2024 5:15 AM CDT 11/29/2024 5:19 AM CDT Gwen Max DO LAB BLOOD ORDERABLES Fin al Result Performing Organization Address City/[facility]/ZIP Co de Phone Number [facility] (SPENCER) [address] [facility] [place] [address] * Phosphorus (11/29/2024 5:15 AM CDT) Phosphorus, pl 3.3 2.3 - 4.5 mg/dL Blood 11/29/2024 5:15 AM CDT 11/29/2024 5:19 AM CDT Gwen Max DO LAB BLOOD ORDERABLES Fin al Result Performing Organization Address City/[facility]/ZIP Co de Phone Number [facility] (SP[facility]) [address] [facility] [place] [address] * Magnesium (11/29/2024 5:15 AM CDT) Magnesium 1.8 1.4 - 2.5 mg/dL Blood 11/29/2024 5:15 AM CDT 11/29/2024 5:19 AM CDT Gwen Max DO LAB BLOOD ORDERABLES Fin al Result [facility] (SPENCER) [address] [facility] Department [place] [address] * (ABNORMAL) Comprehensive metabolic panel (11/29/2024 5:15 [...] CDT 11/29/2024 5:19 AM CDT Gwen Erika Max DO LAB BLOOD ORDERABLES Fin al Result [facility] SPENCER [address] [facility] Department [place] [address] * CTA Abdomen Pelvis (11/28/2024 9:16 PM [...] Parmjit Flor M.D. REBEKAH: REBEKAH Report ID: [id number] Reading Location: [id number] Procedure Note Parmjit Flor MD - 11/29/2024 [...] Parmjit Flor M.D. REBEKAH: REBEKAH Report ID: [id number] Reading Location: [place] [address] Gwen Max DO IMG CT PROCEDURES Final Result * Sepsis Lactate w/ Reflex (11/28/2024 6:14 PM CDT) Sepsis Lactate 1.8 0.7 - 2.0 mmol/L Blood 11/28/2024 6:14 PM CDT 11/28/2024 6:17 PM CDT Gwen Max DO LAB BLOOD ORDERABLES Fin al Result [facility] (ACWORTH) [address] Department [place] [address] * Erythrocyte sedimentation rate (11/28/2024 6:14 PM CDT) [facility] Erythrocyte sedimentation rate 9 1 - 20 mm/hr Blood 11/28/2024 6:14 PM CDT 11/28/2024 6:17 PM CDT Gwen Erika Mansoor DO LAB BLOOD ORDERABLES Fin al Result Performing Organization Address City/[facility]/ZIP Co de Phone Number [facility] (ACWORTH) 1 [place] [address] * (ABNORMAL) Lactate (11/28/2024 9:37 AM CDT) [facility] Lactate 4.6(C) 0.7 - 2.0 mmol/L Comment:Critical result call ed to and read back by Louisa Bryant rn ([facility]) on 11/28/2024 09:50:27 CDT to trang alberts. Blood 11/28/2024 9:3 7 AM CDT 11/28/2024 9:44 AM CDT Gwen Max DO LAB BLOOD ORDERABLES Fin al Result Performing Organization Address City/[facility]/ZIP Co de Phone Number [facility] (AC[facility]) [address] [place] [address] * eGFR (11/28/2024 9:37 AM CDT) [facility] eGFR >90 >=60 mL/min/1. 73 m2 [...] ORDERABLES Fin al Result Performing Organization Address City/[facility] Co de Phone Number [facility] (ACWORTH) [address] [facility] [place] [address] * Procalcitonin (11/28/2024 9:37 AM CDT) Procalcitonin <0.05 <=0.25 ng/mL Comment:Testing performed by : [facility], [facility] [facility], [place]., [address] Blood 11/28/2024 9:37 AM CDT 11/29/2024 2:25 PM CDT Gwen Max DO LAB BLOOD ORDERABLES Fin al Result Performing Organization Address City/[facility] Co de Phone Number [facility] (AC[facility]) [address] [facility] [place] [address] * CRP (acute phase) (11/28/2024 9:37 AM CDT) CRP 6.9 <=10.0 mg/L Blood 11/28/2024 9:37 AM CDT 11/28/2024 4:35 PM CDT Gwen [employer] DO LAB BLOOD ORDERABLES Fin al Result Performing Organization Address City/[facility]/ZIP Co de Phone Number [facility] (ACWORTH) [address] [place] [address] * (ABNORMAL) Phosphorus (11/28/2024 9:37 AM CDT) Pathologist [facility] Phosphorus, pl 1.7(L) 2.3 - 4.5 mg/dL Blood 11/28/2024 9:37 AM CDT 11/28/2024 9:44 AM CDT Gwen James [employer] DO LAB BLOOD ORDERABLES Fin al Result [facility] (AC[facility]TH) 1 [place] [address] * Magnesium (11/28/2024 9:37 AM CDT) [facility] Magnesium 1.7 1.4 - 2.5 mg/dL Blood 11/28/2024 9:37 AM CDT 11/28/2024 9:44 AM CDT Gwen [employer] DO LAB BLOOD ORDERABLES Fin al Result [facility] (ACWORTH) 1 [place] [address] * (ABNORMAL) Comprehensive metabolic panel (11/28/2024 9:37 AM CDT) Pathologist [facility] Sodium 131(L) 135 - 145 mmol/L Potassium, pl 3.3 3.3 - 4.9 mmol/L [facility] ([facility]) Chloride 90(L) 97 - 110 mmol/L [facility] ([facility]) CO2 25 22 - 32 mmol/L [facility] ([facility]) Anion gap 16(H) 2 - 15 mmol/L [facility] ([facility]) BUN 4(L) 6 - 25 mg/dL [facility] ([facility]) Creatinine 0.51(L) 0.60 - 1.10 mg/dL [facility] ([facility]) Glucose 135 70 - 199 mg/dL [facility] (SP[facility]) Comment: Interpretive Data Fasting glucose [...] 3.8 3.5 - 5.0 g/dL [facility] (PSENCER) Alk phos 68 40 - 130 Units/L [facility] ([facility]) ALT 29 7 - 45 Units/L [facility] ([facility]) AST 36 10 - 45 Units/L [facility] ([facility]) Blood 11/28/2024 9:37 AM CDT 11/28/2024 9:44 AM CDT Gwen Max DO LAB BLOOD ORDERABLES Fin al Result [facility] ([facility]) [address] [facility] Department of Laboratories [place], [place] [address] * eGFR (11/28/2024 4:42 AM CDT) eGFR [...] LAB BLOOD ORDERABLES Pam vincent Result [facility] (ACWOR[facility]) [address] [facility] Department [place] [address] * (ABNORMAL) Differential, auto (11/28/2024 4:42 AM [...] Pam l Result [facility] ([facility]) [address] [facility] Department of Laboratories [place], [place] [id number] * (ABNORMAL) CBC with auto differential (11/28/2024 [...] RDW SD 43.0 35.7 - 48.1 fL [facility] ([facility]) NRBC abs 0.00 0.00 - 0.01 K/cumm [facility] ([facility]) Blood 11/28/2024 4:42 AM CDT 11/28/2024 4:53 AM CDT us Kaylin MONZON LAB BLOOD ORDERABLES Pam l Result [facility] ([facility]) [address] [facility] [employer] [place] [address] * Magnesium (11/28/2024 4:42 AM CDT) Magnesium 1.8 1.4 - 2.5 mg/dL Blood 11/28/2024 4:42 AM CDT 11/28/2024 4:54 AM CDT us Param Crespo MD LAB BLOOD ORDERABLES Fi nal Result Performing Organization Address City/[facility]/ZIP Co de Phone Number [facility] ([facility]) [address] [place] [address] [place] [address] * (ABNORMAL) Comprehensive metabolic panel (11/28/2024 4:42 AM CDT) Sodium 136 135 - 145 mmol/L Potassium, pl 2.9(C) 3.3 - 4.9 mmol/L [facility] ([facility]) Comment:Critical Result call ed by [id number] at 2024-11-28 05:35:10. Result Read Back by [...] Pam l Result [facility] ([facility]) [address] [facility] Department of Laboratories [place], [place] [address] * CT Chest PE (CTA) Abdomen Pelvis [...] by Gregory Pablo M.D. JR: Report ID: [id number] Reading Location: [id number] Procedure Note Gregory Pablo MD - 11/27/2024 [...] 11/27/2024 8:42 PM - Electronically signed by Gregoyr Pablo M.D. JR: Report ID: [id number] Reading Location: [place] [address] PROCEDURES Final R esult * (ABNORMAL) Sepsis Lactate w/ Reflex (11/27/2024 7:28 PM CDT) Pathologist [facility] Sepsis Lactate 2.7(H) 0.7 - 2.0 mmol/L Blood 11/27/2024 7:28 PM CDT 11/27/2024 7:31 PM CDT Sam Estrada MD LAB BLOOD ORDERABLE S Final Result Performing Organization Address [facility] Co de Phone Number [facility] ACWORTH) [address] [facility] [place] [address] * Ethanol (11/27/2024 6:09 PM CDT) [facility] Ethanol <10 <=10 mg/dL Comment: Interpretive Data Legal limit of intoxication > or = 80 mg/dL Levels > or = 400 mg/dL are potentially TOXIC. Current interpretive data was last revised on 2018. Blood 11/27/2024 6:09 PM CDT 11/27/2024 6:12 PM CDT Kaylin MONZON LAB BLOOD ORDERABLES Pam l Result Performing Organization Address City/[facility] Co de Phone Number [facility] AC[facility]) [address] [facility] [employer] [place], [place] [address] * (ABNORMAL) Drugs of Abuse Screen, Urine without Confirmation (11/27/2024 6:08 PM CDT) Pathologist [facility] Amphetamine, ur Not Detected CutOff 500ng/mL Comment: [...] LAB URINE ORDERABLES Pam l Result [facility] (SPENCER) [address] [facility] Department [place] [address] * (ABNORMAL) Sepsis Lactate w/ Reflex (11/27/2024 4:32 PM CDT) Sepsis Lactate 4.4(C) 0.7 - 2.0 mmol/L Comment:Critical result call ed to and read back by Jenna Segura(er) on 11/27/2024 16:52:43 CDT to Kathleen Caputo. Blood 11/27/2024 4:32 PM CDT 11/27/2024 4:51 PM CDT us Sam Estrada MD LAB BLOOD ORDERABLE S Final Result [facility] (ACWORTH) [address] [facility] Department [place] [address] * Blood culture Blood Peripheral (11/27/2024 2:53 PM CDT) Report Final Report: No growth Comment:Testing performed by : [facility], [address], [place]., [address] Blood (Peripheral) 11/27/2024 2:53 PM CDT 11/27/2024 6:45 PM CDT Narrative [facility] (ACWORTH) - 12/02/2024 7:01 AM CDT From a [...] performance characteristics have been verified by the [facility] Microbiology Laboratory. For questions about this culture, contact the Microbiology Laboratory at [phone]. Interpretive data was last revised on 24. Sam Estrada MD LAB MICROBIOLOGY - GENERAL ORDERABLES Final Result [facility] (SPENCER) [address] [facility] Department [place] [address] * Blood culture Blood Peripheral (11/27/2024 2:53 PM CDT) Report Final Report: No growth Comment:Testing performed by : [facility], [address] [place]., [address] Blood (Peripheral) 11/27/2024 2:53 PM CDT 11/27/2024 [...] performance characteristics have been verified by the [facility] Microbiology Laboratory. For questions about this culture, contact the Microbiology Laboratory at [phone]. Interpretive data was last revised on 24. us Sam Estrada MD LAB MICROBIOLOGY - GENERAL ORDERABLES Final Result [facility] ACWORTH [address] [facility] Department [place] [address] * XR Chest 1 View (11/27/2024 1:58 [...] Jayce Cano M.D. MM: MM Report ID: [id number] Reading Location: [id number] Procedure Note Jayce Cano MD - 11/27/2024 [...] Jayce Cano M.D. MM: MM Report ID: [id number] Reading Location: [id number] Sam Estrada MD IMG XR PROCEDURES F inal Result * (ABNORMAL) Urinalysis reflex to microscopic and culture Urine (11/27/2024 1:25 PM CDT) Color, ur Yellow Yellow Clarity, ur Clear Clear [facility] (SPENCER) Specific gravity, ur 1.018 1.003 - 1.030 [facility] ([facility]) pH, urine 5.5 [facility] (SPENCER) Comment: Interpretive Data U rine pH is affected by diet, medications, systemic acid-base disturbances, and renal tubular function. pH may affect urinary stone formation. For example, urine pH below 6.0 may help reduce the tendency for calcium phosphate stones and pH greater than 6.0 may reduce the tendency for uric acid stone formation. Source: [facility] Current Interpretive Data was last revised on [...] GENERAL ORDERABLES Final Result Performing Organization Address City/[facility] Co de Phone Number [facility]ID T[facility] (ACWORTH) [address] [facility] [place] [address] * (ABNORMAL) Sepsis Lactate w/ Reflex (11/27/2024 12:58 PM CDT) [facility] Sepsis Lactate 8.2(C) 0.7 - 2.0 mmol/L Comment:Critical result call ed to and read back by Connor De Dios RN (ER) on 11/27/2024 13:05:20 CDT to Rose Marie Bryant. Blood 11/27/2024 12:5 8 PM CDT 11/27/2024 1:01 PM CDT Sam Estrada MD LAB BLOOD ORDERABLE S Final Result [facility] (ACWORTH) [address] [facility] [place] [address] * eGFR (11/27/2024 12:58 PM CDT) [facility] eGFR >90 >=60 mL/min/1. 73 m2 [...] MD LAB BLOOD ORDERABLE S Final Result [facility] (ACWORTH) [address] [facility] Department [place] [address] * (ABNORMAL) Basic metabolic panel (11/27/2024 12:58 PM CDT) Sodium 134(L) 135 - 145 mmol/L Potassium, pl 3.6 3.3 - 4.9 mmol/L [facility] ([facility]) Chloride 92(L) 97 - 110 mmol/L [facility] ([facility]) CO2 22 22 - 32 mmol/L [facility] ([facility]) Anion gap 20(H) 2 - 15 mmol/L [facility] ([facility]) BUN 12 6 - 25 [...] Calcium 8.6 8.5 - 10.3 mg/dL [facility] (SPENCER) Blood 11/27/2024 12:5 8 PM CDT 11/27/2024 1:01 PM CDT Sam Estrada MD LAB BLOOD ORDERABLE S Final Result Performing Organization Address City/[facility]/ZIP Co de Phone Number [facility] (AC[facility]) [address] [facility] [place] [address] * hCG, blood, quantitative (11/27/2024 12:57 PM [...] ORDERABLE S Edited Result - Final [facility] (ACWOR[facility]) [address] [facility] [place] [address] * (ABNORMAL) Blood gas, venous (11/27/2024 12:57 PM CDT) pH, Venous 7.45(H) 7.32 - 7.43 PCO2, Venous 35(L) 40 - 50 mmHg [facility] (ACWORTH) PO2, Venous 71 mmHg [facility] (ACWORTH) Comment: Interpretive Data No reference range established. Current interpretive data was last revised 2017. HCO3 Venous, Calculated 24 20 - 30 mmol/L [facility] (AC[facility]) BE, venous 1 mmol/L [facility] (ACWORTH) Comment: Interpretive Data No Reference Range Established Current Interpretive Data was last revised on 2017. Blood 11/27/2024 12:5 7 PM CDT 11/27/2024 1:19 PM CDT Sam Estrada MD LAB BLOOD ORDERABLE S Final Result [facility] (ACWORTH) [address] [facility] Department [place] [address] * POCT glucose (11/27/2024 11:56 AM CDT) Glucose, POC 116 70 - 199 mg/dL Blood 11/27/2024 11:5 6 AM CDT 11/27/2024 11:56 AM CDT Sam Estrada MD LAB POCT ORDERABLES - DEVICE Final Result [facility] (ACWORTH) [address] [facility] [place] [address] * ECG 12 lead (11/27/2024 10:17 AM CDT) 11/27/2024 10:1 7 AM CDT Narrative [facility] - 11/27/2024 11:43 AM CDT Vent Rate: 136 bpm RR Interval: 440 msec ME Interval: 139 msec QRS Duration: 86 msec QT Interval: 330 msec QTC Interval: 410 msec P-R-T [place]: 34 - 30 - 10 degrees IMPRESSION: SINUS TACHYCARDIA NONSPECIFIC ST \T\ T-WAVE ABNORMALITY ABNORMAL RHYTHM ECG Electronically Signed By: Peewee Connors MD Sam Estrada MD ECG ORDERABLES Fin al Result [facility] * eGFR (11/27/2024 9:53 AM CDT) [...] ORDERABLE S Final Result Performing Organization Address [facility] Co de Phone Number [facility] AC[facility] [address] [facility] Department of Laboratories [place] [id number] * Beta-hydroxybutyrate (11/27/2024 9:53 AM CDT) Beta-Hydroxybut yrate 0.3 <=0.5 mmol/L Comment:Testing performed by : [facility], [address] [place] [address], [place]., [address] Blood 11/27/2024 9:53 AM CDT 11/27/2024 3:34 PM CDT Sam Estrada MD LAB BLOOD ORDERABLE S Final Result [facility] ([facility]) [address] [facility] [place] [address] * (ABNORMAL) CBC with auto differential (11/27/2024 9:53 AM CDT) Pathologist [facility] WBC 9.79 3.80 - 9.90 K/cumm Hgb [...] S Final Result [facility] (SPENCER) [address] [facility] [place] [address] * (ABNORMAL) Manual Differential (11/27/2024 9:53 AM CDT) Differential Manual Cells Counted 100 [facility] (SP[facility]) Neutrophil abs 7.73(H) 1.50 - 6.50 K/cumm [facility] ([facility]) Imm gran abs 0.10 0.00 - 0.10 K/cumm [facility] (SPNECER) Lymphocyte abs 1.76 0.80 - 3.30 K/cumm [...] revised on 2017. Monocyte pct 1.0 % [facility] ([facility]) Comment: Interpretive Data Percent cell [...] Metamyelocyte pct 1.0(H) 0.0 - 0.0 % [facility] (SP[facility]) Variant lymph pct 1.0(H) 0.0 - 0.0 % [facility] ([facility]) RBC morphology Consistent with RBC Indicies [facility] ([facility]) Platelet estimate Adequate CE [facility] (SPENCER) Blood 11/27/2024 9:53 AM CDT 11/27/2024 10:03 AM CDT us Sam Estrada MD LAB BLOOD ORDERABLE S Final Result [facility] (SPENCER) [address] [facility] Department [place] [address] * Protime-INR (11/27/2024 9:53 AM CDT) PT 12.3 9.7 - 13.0 sec [facility] (SPENCER) INR 1.14 0.90 - 1.20 [facility] (SPENCER) Comment: Interpretive data Oral anticoagulant therapeutic [...] ORDERABLE S Final Result Performing Organization Address City/[facility]/ZIP Co de Phone Number [facility] (ACWORTH) [address] [facility] [place] [address] * Magnesium (11/27/2024 9:53 AM CDT) Magnesium 1.4 1.4 - 2.5 mg/dL Blood 11/27/2024 9:53 AM CDT 11/27/2024 10:03 AM CDT us Sam Estrada MD LAB BLOOD ORDERABLE S Final Result [facility] ([facility]) [address] [facility] [place] [address] * Lipase (11/27/2024 9:53 AM CDT) Lipase 12 10 - 99 Units/L Blood 11/27/2024 9:53 AM CDT 11/27/2024 10:07 AM CDT Sam Estrada MD LAB BLOOD ORDERABLE S Final Result [facility] (ACWORTH) [address] [facility] Department of [place] [address] * Hemoglobin A1c (11/27/2024 9:53 AM CDT) [facility] Hgb A1C 5.6 4.0 - 5.6 % Estimated Average Glucose 114 mg/dL [facility] ([facility]) Comment: The ADA recommends reporting an estimated Average Glucose (eAG) with all Hemoglobin A1c results using the equation derived from a study of 507 normal and diabetic adults. Minority populations were underrepresented and children were not included. (Diabetes Care 31:7696-3635, 2008). The eAG is not equivalent to a fasting glucose. Blood 11/27/2024 9:53 AM CDT 11/27/2024 1:47 PM CDT us Sam Estrada MD LAB BLOOD ORDERABLE S Final Result [facility] ([facility]) [address] [facility] [place] [address] * (ABNORMAL) Comprehensive metabolic panel (11/27/2024 9:53 AM CDT) [facility] Sodium 134(L) 135 - 145 mmol/L Potassium, pl 3.3 3.3 - 4.9 mmol/L [facility] ([facility]) Chloride 87(L) 97 - 110 mmol/L [facility]) CO2 16(L) 22 - 32 mmol/L [facility] ([facility]) Anion gap 31(H) 2 - 15 mmol/L [facility] ([facility]) BUN 13 6 - 25 mg/dL [facility] ([facility]) Creatinine 0.60 0.60 - 1.10 mg/dL [facility] ([facility]) Glucose 242(H) 70 - 199 mg/dL [facility] ([facility]) Comment: Interpretive Data Fasting glucose [...] ORDERABLE S Final Result Performing Organization Address [facility]/ZIP Co de Phone Number [facility] ([facility]) [address] [facility] Department [place] [address] * CT Body Outside Reference (11/04/2024 9:39 AM CDT) Impressions [facility] - 11/04/2024 9:39 AM CDT These images are for Reference purposes only and have not been reviewed by [facility]. There will be no report generated by a [facility] Radiologist. Narrative [facility] - 11/04/2024 9:39 AM CDT EXAMINATION: Images For Reference Purposes Only us Lui Oliva MD IMG CT PROCEDURES Final Result Performing Organization Address City/[facility]/ZIP Co de Phone Number [facility] * CT Body Outside Reference (11/04/2024 8:52 AM CDT) Impressions [facility] - 11/04/2024 8:52 AM CDT These images are for Reference purposes only and have not been reviewed by [facility]. There will be no report generated by a [facility] Radiologist. Narrative [facility] - 11/04/2024 8:52 AM CDT EXAMINATION: Images For Reference Purposes Only Lui Oliva MD IMG CT PROCEDURES Final Result Performing Organization Address [facility] de Phone Number [facility] * CT Body Outside Reference (11/04/2024 8:50 AM CDT) Impressions [facility] - 11/04/2024 8:50 AM CDT These images are for Reference purposes only and have not been reviewed by [facility]. There will be no report generated by a [facility] Radiologist. Narrative [facility] - 11/04/2024 8:50 AM CDT EXAMINATION: Images For Reference Purposes Only Lui Oliva MD IMG CT PROCEDURES Final Result Performing Organization Address [facility] de Phone Number [facility] * CT Body Outside Reference (11/04/2024 8:49 AM CDT) Impressions [facility] - 11/04/2024 8:49 AM CDT These images are for Reference purposes only and have not been reviewed by [facility]. There will be no report generated by a [facility] Radiologist. Narrative [facility] - 11/04/2024 8:49 AM CDT EXAMINATION: Images For Reference Purposes Only Lui Oliva MD IMG CT PROCEDURES Final Result Performing Organization Address [facility] de Phone Number [facility] from Last 3 Months Additional Health Concerns Active Problems Noted Date Diagnosed Date Autogenerated Problem 12/04/2024 Insurance [facility] Advance Directives For more information, please contact: [phone] * Full Code (Latest Code Status on File) Date Activated Date Inactivated Comments 11/27/2024 10:24 PM 11/29/2024 1:02 PM * Full Code Date Activated Date Inactivated Comments 11/27/2024 10:24 PM 11/27/2024 10:24 PM Care Teams Rack Puller Relationship Specialty Start Date End Date Eren Fry MD [address] [place] [address] PCP - General Family Medicine 10/30/24 Awilda Ramires MD [address] [facility] [address] [place] [address] Consulting Physician Surgery 09/16/24 Lui Oliva MD [phone] [place] [address] Surgeon Colon and Rectal Surgery 11/03/24
--- OUTSIDE RECORDS SUMMARY | 2025-01-21 11:10 | XMS_ITS | Continuity of Care Document ---
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 [address], [place], [place], [address] , [place]. tel:[phone] PREV VISIT, EST, AGE 18-39 [facility], [address], [place], [place], [address], [place] tel:[phone] [facility] physical (chief complaint) Encounter for general adult medical examination without abnormal findings 2 Sumanth Palacios. [address], [address], [place], [place], [address] , [place]. tel:[phone] OFFICE/OUTPA TIENT VISIT, EST [facility], [address] [place] [place], [place], [address], [place] tel:[phone] [facility] Medicine alcohol1 (chief complaint) weight gain1 (chief complaint) HCT (chief complaint) HLP (chief complaint) Generalized Anxiety DisorderAlcohol dependence, in remissionHyperlipid emiaSecondary polycythemiaAbnorma l weight gain 1 Sumanth Palacios. [address], [address], [place], [place], [address] , [place]. tel:[phone] OFFICE/OUTPA TIENT VISIT, [facility], [address], [place], [place], [address], [place] tel:[phone] [facility] Alcohol1 (chief complaint) anxitey1 (chief complaint) GERD1 (chief complaint) Alcohol dependence with intoxication, unspecifiedGenerali zed Anxiety DisorderGastritis, unspecified, without bleeding 1 Sumanth Palacios. [address], [address], [place], [place], [address] , [place]. tel:[phone] OFFICE/OUTPA TIENT VISIT, [facility], [address], [place], [place], [address], [place] tel:[phone] [facility] GERD w/o esophagitisAlcohol dependence, in remissionGeneralize d Anxiety Disorder 1 Sumanth Palacios. [address], [address], [place], [place], [address] , [place]. tel:[phone] [facility], [address], [place], [place], [address], [place] tel:[phone] [facility] anxiety1 (chief complaint) alcohol1 (chief complaint) GERD1 (chief complaint) Generalized Anxiety DisorderAlcohol dependence, in remissionGERD w/o esophagitis 1 Sumanth Palacios. [address], [place], [place], [address] , [place]. tel:[phone] OFFICE/OUTPA TIENT VISIT, [facility], [address], [place], [place], [address], [place] tel:[phone] [facility] anxiety1 (chief complaint) alcohol1 (chief complaint) hirsutism1 (chief complaint) hyponaremi a1 (chief complaint) weight gain1 (chief complaint) HirsutismGeneralize d Anxiety DisorderAlcohol dependence, in remissionAbnormal weight gainHyponatremia 1 Sumanth Palacios. [address], [address], [place], [place], [address] , [place]. tel:[phone] OFFICE/OUTPA TIENT VISIT, [facility], [address], [place], [place], [address], [place] tel:[phone] [facility] alcohol1 (chief complaint) anxiety1 (chief complaint) hirsutism1 (chief complaint) hyponatrem ia1 (chief complaint) HirsutismGeneralize d Anxiety DisorderAlcohol dependence, in remissionHyponatrem ia 1 Sumanth Lin [address], [address], [place], [place], [address] , [place]. tel:[phone] Referring Provider: Vaibhav Esqueda [address], [place], [place], [address]. tel:[phone] OFFICE/OUTPA TIENT VISIT, [facility], [address] [place] [address] [address], [place], [place], [address], [place] tel:[phone] [facility] anxiety1 (chief complaint) hirsutism1 (chief complaint) insomnia1 (chief complaint) HirsutismGeneralize d Anxiety DisorderInsomnia 0 Sumanth Lin [address], [address], [place], [place], [address] , [place]. tel:[phone] Referring Provider: Vaibhav Esqueda [address], [place], [place], [address]. tel:[phone] OFFICE/OUTPA TIENT VISIT, [facility], [address], [place], [place], [address], [place] tel:[phone] [facility] anxiety1 (chief complaint) weight (chief complaint) Abnormal weight gainGeneralized Anxiety Disorder 0 Sumanth Lin [address], [address], [place], [place], [address] , [place]. tel:[phone] Referring Provider: Vaibhav Esqueda [address], [place], [place], [address]. tel:[phone] OFFICE/OUTPA TIENT VISIT, [facility], [address], [place], [place], [address], [place] tel:[phone] [facility] anxiety1 (chief complaint) weight gain1 (chief complaint) Generalized Anxiety DisorderAbnormal weight gain 0 Sumanth Palacios. [address], [address], [place], [place], [address] , [place]. tel:[phone] Referring Provider: Philip Julio, [address], [place], [place], [address]. tel:[phone] OFFICE/OUTPA TIENT VISIT, [facility], [address], [place], [place], [address], [place] tel:[phone] [facility] HLP (chief complaint) hCT (chief complaint) glucose1 (chief complaint) anxiety1 (chief complaint) weight gain1 (chief complaint) HyperlipidemiaHyper glycemiaSecondary polycythemiaGeneral ized Anxiety DisorderAbnormal weight gain Feb- 0 Sumanth Palacios. [address], [place], [place], [address] , [place]. tel:[phone] Referring Provider: Philip Jluio [address], [place], [place], [address]. tel:[phone] OFFICE/OUTPA TIENT VISIT, [facility], [address], [place], [place], [address], [place] tel:[phone] [facility] anxiety1 (chief complaint) HTN (chief complaint) Generalized Anxiety DisorderAbnormal weight lossHirsutism Jan- 0 Sumanth Palacios. [address], [address], [place], [place], [address] , [place]. tel:[phone] Referring Provider: Philip Julio [address], [place], [place], [address]. tel:[phone] OFFICE/OUTPA TIENT VISIT, [facility], [address], [place], [place], [address], [place] tel:[phone] [facility] anxiety1 (chief complaint) weight loss1 (chief complaint) Generalized Anxiety DisorderAbnormal weight loss 0 0 Sumanth Palacios. [address], [place], [place], [address] , [place]. tel:[phone] Referring Provider: Philip Julio, [address], [place], [place], [address]. tel:[phone] OFFICE/OUTPA TIENT VISIT, [facility], [address], [place], [place], [address], [place] tel:[phone] [facility] work excuse1 (chief complaint) Fatigue 0 Sumanth Palacios. [address], [address], [place], [place], [address] , [place]. tel:[phone] Referring Provider: Philip Julio, [address], [place], [place], [address]. tel:[phone] OFFICE/OUTPA TIENT VISIT, [facility], [address], [place], [place], [address], [place] tel:[phone] [facility] anxiety1 (chief complaint) weight1 (chief complaint) Abnormal weight gainGeneralized Anxiety Disorder 0 Sumanth Palacios. [address], [place], [place], [address] , [place]. tel:[phone] Referring Provider: Vaibhav Esqueda [address], [place], [place], [address]. tel:[phone] OFFICE/OUTPA TIENT VISIT, [facility], [address], [place], [place], [address], [place] tel:[phone] [facility] HLP (chief complaint) anxiety1 (chief complaint) Generalized Anxiety DisorderHyperlipide caitlyn 0 0 Sumanth Palacios. [address], [place], [place], [address] , [place]. tel:[phone] Referring Provider: Philip Julio [address], [place], [place], [address]. tel:[phone] OFFICE/OUTPA TIENT VISIT, EST [facility], [address], [place], [place], [address], [place] tel:[phone] [facility] Medicine anxiety1 (chief complaint) weight gain1 (chief complaint) Abnormal weight gainGeneralized Anxiety Disorder Apr-2 0 Sumanth Palacios. [address], [place], [place], [address] , [place]. tel:[phone] Referring Provider: Philip Julio [address], [place], [place], [address]. tel:[phone] OFFICE/OUTPA TIENT VISIT, [facility], [address], [place], [place], [address], [place] tel:[phone] [facility] anxiety1 (chief complaint) hand numbness1 (chief complaint) Paresthesia of skinGeneralized Anxiety Disorder Aug- 0 Sumanth Palacios. [address], [place], [place], [address] , [place]. tel:[phone] Referring Provider: Vaibhav Esqueda [address], [place], [place], [address]. tel:[phone] OFFICE/OUTPA TIENT VISIT, [facility], [address], [place], [place], [address], [place] tel:[phone] [facility] tingling1 (chief complaint) weight loss1 (chief complaint) anxiety1 (chief complaint) Other muscle spasmParesthesia of skinGeneralized Anxiety DisorderAbnormal weight loss Fe- 0- 0 Sumanth Palacios. [address], [place], [place], [address] , [place]. tel:[phone] Referring Provider: Vaibhav Esqueda [address], [place], [place], [address]. tel:[phone] PREV VISIT, EST, AGE 18-39 [facility], [address], [place], [place], [address], [place] tel:[phone] [facility] Physical (chief complaint) Encntr for general adult medical exam w/o abnormal findings 0 0 Sumanth Palacios. [address], [place], [place], [address] , [place]. [phone] Referring Provider: Vaibhav Esqueda [address], [place], [place], [address]. tel:[phone] OFFICE/OUTPA TIENT VISIT, [facility], [address], [place], [place], [address], [place] tel:[phone] [facility] anxiety1 (chief complaint) weight1 (chief complaint) Abnormal weight gainGeneralized Anxiety Disorder 9 Sumanth Palacios. [address], [place], [place], [address] , [place]. [phone] Referring Provider: Vaibhav Esqueda [address], [place], [place], [address]. tel:[phone] OFFICE/OUTPA TIENT VISIT, [facility], [address], [place], [place], [address], [place] tel:[phone] [facility] weight loss1 (chief complaint) anxiety1 (chief complaint) Abnormal weight lossGeneralized Anxiety Disorder 9 Sumanth Lin [address], [place], [place], [address] , [place]. [phone] Referring Provider: Vaibhav Esqueda [address], [place], [place], [address]. tel:[phone] OFFICE/OUTPA TIENT VISIT, [facility], [address], [place], [place], [address], [place] tel:[phone] [facility] weight loss1 (chief complaint) anxiety1 (chief complaint) Generalized Anxiety DisorderAbnormal weight loss 9 Sumanth Palacios. [address], [place], [place], [address] , [place]. [phone] Referring Provider: Vaibhav Esqueda [address], [place], [place], [address]. tel:[phone] OFFICE/OUTPA TIENT VISIT, [facility], [address], [place], [place], [address], [place] tel:[phone] [facility] fatty liver1 (chief complaint) HLP (chief complaint) MCV (chief complaint) weight loss1 (chief complaint) anxiety1 (chief complaint) HyperlipidemiaAbnor mal weight lossGeneralized Anxiety DisorderFatty liverOther specified disease of bloodHyperglycemia 0 9 Sumanth Palacios. [address], [place], [place], [address] , [place]. tel:[phone] Referring Provider: Vaibhav Esqueda [address], [place], [place], [address]. tel:[phone] OFFICE/OUTPA TIENT VISIT, [facility], [address], [place], [place], [address], [place] tel:[phone] [facility] anxiety1 (chief complaint) LFT (chief complaint) obesity1 (chief complaint) HLP (chief complaint) sleep apnea1 (chief complaint) Liver diseaseHyperlipidem iaSleep apneaGeneralized Anxiety DisorderAbnormal weight gain 9 Sumanth Palacios. [address], [place], [place], [address] , [place]. tel:[phone] Referring Provider: Vaibhav Esqueda [address], [place], [place], [address]. tel:[phone] OFFICE/OUTPA TIENT VISIT, [facility], [address], [place], [place], [address], [place] tel:[phone] [facility] HTN (chief complaint) anxiety1 (chief complaint) LFT (chief complaint) Abnormal weight lossLiver diseaseGeneralized Anxiety Disorder 9 Sumanth Palacios. [address], [place], [place], [address] , [place]. tel:[phone] Referring Provider: Vaibhav Esqueda [address], [place], [place], [address]. tel:[phone] OFFICE/OUTPA TIENT VISIT, [facility], [address], [place], [place], [address], [place] tel:[phone] [facility] weight1 (chief complaint) anxiety1 (chief complaint) lFt (chief complaint) sleep apnea1 (chief complaint) Sleep apneaLiver diseaseGeneralized Anxiety DisorderSecondary polycythemiaHyperli pidemiaAbnormal weight gain 9 Sumanth Palacios. [address], [place], [place], [address] , [place]. tel:[phone] Referring Provider: Vaibhav Esqueda [address], [place], [place], [address]. tel:[phone] OFFICE/OUTPA TIENT VISIT, [facility], [address], [place], [place], [address], [place] tel:[phone] [facility] anxiety1 (chief complaint) weight1 (chief complaint) sleep apnea1 (chief complaint) liver1 (chief complaint) Abnormal weight gainLiver diseaseGeneralized Anxiety DisorderSleep apnea 9 Sumanth Palacios. [address], [place], [place], [address] , [place]. tel:[phone] Referring Provider: Vaibhav Es[address], [place], [place], [address]. tel:[phone] OFFICE/OUTPA TIENT VISIT, [facility], [address], [place], [place], [address], [place] tel:[phone] [facility] HLP (chief complaint) LFT (chief complaint) polycythem ia1 (chief complaint) glucose1 (chief complaint) anxiety1 (chief complaint) HyperlipidemiaLiver diseaseHyperglycemi aSecondary polycythemiaGeneral ized Anxiety DisorderAbnormal weight gain 9 Sumanth Lin [address], [place], [place], [address] , [place]. tel:[phone] Referring Provider: Vaibhav Esqueda [address], [place], [place], [address]. tel:[phone] OFFICE/OUTPA TIENT VISIT, EST [facility], [address], [place], [place], [address], [place] tel:[phone] [facility] GI (chief complaint) Viral infection 9 Sumanth Palacios. [address], [place], [place], [address] , [place]. tel:[phone] Referring Provider: Philip Julio, [address], [place], [place], [address]. tel:[phone] OFFICE/OUTPA TIENT VISIT, [facility], [facility] [address], [place], [place], [address], [place] tel:[phone] [facility] weight gain1 (chief complaint) anxiety1 (chief complaint) cough1 (chief complaint) insomnia1 (chief complaint) Acute bronchitisInsomniaG eneralized Anxiety DisorderAbnormal weight gainEssential (primary) hypertension 9 Sumanth Palacios. [address], [place], [place], [address] , [place]. tel:[phone] Referring Provider: Vaibhav Esqueda [address], [place], [place], [address]. tel:[phone] PREV VISIT, EST, AGE 18-39 [facility], [address], [place], [place], [address], [place] tel:[phone] [facility] Physical (chief complaint) Encounter for general adult medical exam w abnormal findingsAbnormal weight gainGeneralized Anxiety DisorderOccult blood in fecesEssential (primary) hypertension 8 Sumanth Palacios. [address], [place], [place], [address] , [place]. tel:[phone] Referring Provider: Vaibhav Esqueda [address], [place], [place], [address]. tel:[phone] OFFICE/OUTPA TIENT VISIT, [facility], [address], [place], [place], [address], [place] tel:[phone] [facility] insomnia1 (chief complaint) anxiety1 (chief complaint) sob1 (chief complaint) Generalized Anxiety DisorderAsthmaInsom niaSleep disorder, unspecified 0 7 Sumanth Palacios. [address], [place], [place], [address] , [place]. tel:[phone] Referring Provider: Philip Julio, [address], [place], [place], [address]. tel:[phone] OFFICE/OUTPA TIENT VISIT, [facility], [address], [place], [place], [address], [place] tel:[phone] [facility] anxiety1 (chief complaint) insomnia1 (chief complaint) InsomniaGeneralized Anxiety Disorder 7 Sumanth Palacios. [address], [place], [place], [address] , [place]. tel:[phone] Referring Provider: Philip Julio [address], [place], [place], [address]. tel:[phone] OFFICE/OUTPA TIENT VISIT, [facility], [address], [place], [place], [address], [place] tel:[phone] [facility] back pain1 (chief complaint) HLP (chief complaint) anxiety1 (chief complaint) insomnia1 (chief complaint) HyperlipidemiaBack painGeneralized Anxiety Disorder 7 Sumanth Palacios. [address], [place], [place], [address] , [place]. tel:[phone] Referring Provider: Vaibhav Esqueda [address], [place], [place], [address]. tel:[phone] OFFICE/OUTPA TIENT VISIT, [facility], [address], [place], [place], [address], [place] tel:[phone] [facility] anxiety1 (chief complaint) insomnia1 (chief complaint) marijauna1 (chief complaint) weight loss1 (chief complaint) InsomniaGeneralized Anxiety DisorderCannabis abuse, uncomplicatedAbnorm al weight loss 7 Sumanth Palacios. [address], [place], [place], [address] , [place]. tel:[phone] Referring Provider: Vaibhav Esqueda [address], [place], [place], [address]. tel:[phone] OFFICE/OUTPA TIENT VISIT, [facility], [address], [place], [place], [address], [place] tel:[phone] [facility] anxiety1 (chief complaint) insomnia1 (chief complaint) HLP (chief complaint) Generalized Anxiety DisorderHyperlipide miaInsomniaBody mass index (BMI) 32.0-32.9, adult Fe 7 Sumanth Lin [address], [place], [place], [address] , [place]. tel:[phone] Referring Provider: Vaibhav Esqueda [address], [place], [place], [address]. tel:[phone] OFFICE/OUTPA TIENT VISIT, [facility], [address], [place], [place], [address], [place] tel:[phone] [facility] anxiety1 (chief complaint) insomnia1 (chief complaint) obesity1 (chief complaint) Generalized Anxiety DisorderBody mass index (BMI) 33.0-33.9, adultInsomnia 7 Sumanth Lin [address], [place], [place], [address] , [place]. tel:[phone] Referring Provider: Vaibhav Esqueda [address], [place], [place], [address]. tel:[phone] OFFICE/OUTPA TIENT VISIT, [facility], [address], [place], [place], [address], [place] tel:[phone] [facility] HLP (chief complaint) MCV (chief complaint) toothache1 (chief complaint) anxiety1 (chief complaint) HyperlipidemiaAtypi jaguar facial painOther specified disease of bloodInsomnia 0 6 Sumanth Palacios. [address], [place], [place], [address] , [place]. tel:[phone] Referring Provider: Vaibhav Es[address], [place], [place], [address]. tel:[phone] PREV VISIT, EST, AGE 18-39 [facility], [address], [place], [place], [address], [place] tel:[phone] [facility] PHysical (chief complaint) Encounter for general adult medical exam w abnormal findingsGeneralized anxiety disorderInsomnia 6 Sumanth Palacios. [address], [place], [place], [address] , [place]. tel:[phone] Referring Provider: Vaibhav Esqueda [address], [place], [place], [address]. tel:[phone] OFFICE/OUTPA TIENT VISIT, EST [facility], [address], [place], [place], [address], [place] tel:[phone] [facility] anxiety1 (chief complaint) hematuria1 (chief complaint) HTN (chief complaint) insomnia1 (chief complaint) Essential (primary) hypertensionHematur ia, unspecifiedGenerali zed anxiety disorderInsomnia 6 Sumanth Lin [address], [place], [place], [address] , [place]. tel:[phone] Referring Provider: Vaibhav Es[address], [place], [place], [address]. tel:[phone] OFFICE/OUTPA TIENT VISIT, EST [facility], [address] [place], [address], [place] tel:[phone] [facility] shoulder pain1 (chief complaint) hematuria (chief complaint) anxiety1 (chief complaint) HematuriaGeneralize d anxiety disorderPain in rt shoulder 6 Sumanth Lin [address], [place], [place], [address] , [place]. tel:[phone] Referring Provider: Philip Julio, [address], [place], [place], [address]. tel:[phone] OFFICE/OUTPA TIENT VISIT, [facility], [address], [place], [place], [address], [place] tel:[phone] [facility] anxiety1 (chief complaint) insomnia1 (chief complaint) Generalized anxiety disorderOther insomnia 0 6 Sumanth Palacios. [address], [place], [place], [address] , [place]. tel:[phone] Referring Provider: Vaibhav Esqueda [address], [place], [place], [address]. tel:[phone] OFFICE/OUTPA TIENT VISIT, [facility], [address], [place], [place], [address], [place] tel:[phone] [facility] Anxiety1 (chief complaint) insomnia1 (chief complaint) fatigue1 (chief complaint) Other insomniaOther fatigueGeneralized anxiety disorder 8 5 Sumanth Palacios. [address], [place], [place], [address] , [place]. tel:[phone] Referring Provider: Vaibhav Esqueda [address], [place], [place], [address]. tel:[phone] OFFICE/OUTPA TIENT VISIT, [facility], [address], [place], [place], [address], [place] tel:[phone] [facility] chest pain1 (chief complaint) anxiety1 (chief complaint) Generalized anxiety disorderHematuria 7 5 Sumanth Palacios. [address], [place], [place], [address] , [place]. tel:[phone] Referring Provider: Vaibahv Esqueda [address], [place], [place], [address]. tel:[phone] OFFICE/OUTPA TIENT VISIT, [facility], [address], [place], [place], [address], [place] tel:[phone] [facility] Anxiety (chief complaint) HLP (chief complaint) hematuria (chief complaint) chest pain (chief complaint) Dietary surveillance and counselingGeneraliz ed anxiety disorderHematuriaHy perlipidemiaChest pain 5 Sumanth Palacios. [address], [place], [place], [address] , [place]. tel:[phone] Referring Provider: Vaibhav Esqueda [address], [place], [place], [address]. tel:[phone] PREV VISIT, EST, AGE 18-39 [facility], [address], [place], [place], [address], [place] tel:[phone] [facility] PHysical (chief complaint) Routine medical examDietary surveillance and counseling 5 Sumanth Palacios. [address], [place], [place], [address] , [place]. tel:[phone] Referring Provider: Vaibhav Esqueda [address], [place], [place], [address]. tel:[phone] OFFICE/OUTPA TIENT VISIT, EST [facility], [address], [place], [place], [address], [place] tel:[phone] [facility] rectal bleeding (chief complaint) anxiety (chief complaint) HTN (chief complaint) HLP (chief complaint) Unspecified essential hypertensionOther and unspecified hyperlipidemiaGener alized anxiety disorderRectal bleedingDietary surveillance and counseling 5 Sumanth Palacios. [address], [address], [place], [place], [address] , [place]. tel:[phone] Referring Provider: Vaibhav Esqueda [address], [place], [place], [address]. tel:[phone] OFFICE/OUTPA TIENT VISIT, EST [facility], [address], [place], [place], [address], [place] tel:[phone] [facility] anxiety (chief complaint) alcohol (chief complaint) Generalized anxiety disorderAlcohol dependence in remission Flash- 3-201 5 Sumanth Palacios. [address], [address], [place], [place], [address] , [place]. tel:[phone] Referring Provider: Vaibhav Esqueda [address], [place], [place], [address]. tel:[phone] OFFICE/OUTPA TIENT VISIT, [facility], [address], [place], [place], [address], [place] tel:[phone] [facility] anxiety (chief complaint) alcohol (chief complaint) Generalized anxiety disorderDepression May-0 6- 5 Sumanth Palacios. [address], [address], [place], [place], [address] , [place]. tel:[phone] Referring Provider: Vaibhav Esqueda [address], [place], [place], [address]. tel:[phone] OFFICE/OUTPA TIENT VISIT, [facility], [address], [place], [place], [address], [place] tel:[phone] [facility] anxiety (chief complaint) HTN (chief complaint) Dietary surveillance and counselingDepressio nGeneralized anxiety disorder Apr-0 6 5 Sumanth Palacios. [address], [address], [place], [place], [address] , [place]. tel:[phone] Referring Provider: Vaibhav Esqueda [address], [place], [place], [address]. tel:[phone] OFFICE/OUTPA TIENT VISIT, [facility], [address], [place], [place], [address], [place] tel:[phone] [facility] anxiety (chief complaint) alcohol (chief complaint) Dietary surveillance and counselingSedative, hypnotic or anxiolytic dependence, unspecifiedOther and unspecified alcohol dependence, episodic drinking behavior Mar-0 9-201 5 Sumanth Palacios. [address], [address], [place], [place], [address] , [place]. tel:[phone] Referring Provider: Vaibhav Esqueda [address], [place], [place], [address]. tel:[phone] OFFICE/OUTPA TIENT VISIT, [facility], [address], [place], [address], [place] tel:[phone] [facility] sick (chief complaint) cardiomyop athy (chief complaint) alcohol (chief complaint) anxiety (chief complaint) Dietary surveillance and counselingOther and unspecified diseases of upper respiratory tractCardiomyopathy , Other PrimaryOther and unspecified alcohol dependence, episodic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
== END 2025-01-21 11:15 | disposition home or self-care (01) ==
PROVIDERS: Emergency Provider Nurse Practitioner Family; PCP Family Medicine
DX: R11.2 Nausea with vomiting, unspecified (principal); I10 Essential (primary) hypertension
CPT/HCPCS: 99213; G0463

== ENCOUNTER 2025-03-24 09:40 | Observation (INO) | payer OTHER, SELFPAY ==
[2025-03-24] VITALS (12 sets, daily range): BP systolic 161–199; BP diastolic 109–139; PULSE 108–159; RESP 16–24; TEMP 36.5–36.6; O2SAT 95–100; BMI 31.9
--- NOTE | ~2025-03-24 | CT_ITS ---
EXAMINATION: CTA chest PE protocol, 03/24/2025 15:55 CDT HISTORY: tachycardia, elevated respirations COMPARISON: No comparisons available. TECHNIQUE: CTA examination is obtained with contrast CTA examination technique is performed with arterial phase of contrast-enhancement. 3-D reconstruction with thin MIP axial and MPR coronal imaging is provided Isovue 300, 92cc injected IV. One or more of the following dose reduction techniques were used: automated exposure control, adjustment of the mA and/or kV according to patient size, use of iterative reconstruction technique. FINDINGS: No significant coronary calcification is present ([id number]) LUNGS: Contrast bolus adequate, there is no pulmonary embolism identified. No tracheomalacia. No bronchiectasis. The lungs are clear. HEART AND PERICARDIUM: Within normal limits. AORTA: Normal caliber aorta.. PULMONARY ARTERIES: No pulmonary embolism ADENOPATHY/MEDIASTINUM: None. LIMITED VIEWS OF THE ABDOMEN: Within normal limits. OSSEOUS STRUCTURES: No sclerotic or lytic lesions. OVERLYING SOFT TISSUES: Unremarkable. THYROID: The thyroid is unremarkable. IMPRESSION: Negative for pulmonary embolism. No acute process Reviewed, dictated and finalized at location P.
--- NOTE | 2025-03-24 09:51 | ED_ITS ---
HPI - Nausea/Vomiting/Diarrhea General Chief complaint: Nausea/Vomiting/Diarrhea <Noemy Shelley APRN - Last Filed: 03/24/25 16:37> Stated complaint: alcohol poisoning <Noemy Shelley APRN - Last Filed: 03/24/25 16:37> Time Seen by Provider: 03/24/25 09:43 <Noemy Shelley APRN - Last Filed: 03/24/25 16:37> History of Present Illness HPI Narrative: Patient is a 44-year-old female who presents to the ER with complaints of alcohol poisoning. She reports last night she drank a 5th of whiskey. Patient reports she is on a ?3 day escoto and stop drinking sometime last night. She reports she drank more last night than she usually does. Pt reports she has gone through withdrawals in the past. Patient denies any marijuana or other illicit drug use. She denies any other medical history relevant to this ER visit. Pt denies any chest pain, shortness of breath, or recent fevers. <Noemy Shelley APRN - Last Filed: 03/24/25 16:37> Related Data Allergies/Adverse reactions: Allergies Allergy/AdvReac Type Severity Reaction Status Date / Time No Known Allergies Allergy Verified 10/07/24 08:37 <Noemy Shelley APRN - Last Filed: 03/24/25 16:37> Review of Systems 2 Review of Systems: All systems reviewed & are unremarkable except as noted in HPI and below <Noemy Shelley APRN - Last Filed: 03/24/25 16:37> [facility] Past Medical History Medical History: Medical History Hypertension Preeclampsia cardiomyopathy Alcohol abuse <Noemy Shelley APRN - Last Filed: 03/24/25 16:37> Surgical History Surgical History: Surgical History History of anal fistulotomy History of incision and drainage I&D of perianal abscess on 12/30/23. History of section <Noemy Shelley APRN - Last Filed: 03/24/25 16:37> Family History Family History: Family History Father Diabetes mellitus Mother Chronic obstructive pulmonary disease Heart disease Grandparent Lung cancer <Noemy Shelley APRN - Last Filed: 03/24/25 16:37> Social History Social History: Social History Social History: Surrogate medical decision maker: Shannon Aguillonon, friend. Code status: Full code. Smoking status: Never smoker Alcohol intake: current Drinks per week: 28 Alcohol use details: Up to a 5th of whiskey a day. Substance use: never Substance use type: marijuana Other substance usage details: Daily Last use: 10/06/24 Do You Feel Safe in your Home?: Yes Lack of Transportation: No Lack of Food: Never True Current Housing: I Have Housing Concerned About Future Housing: No Difficulty Paying Gas/Electric Bills: No Difficulty Paying for Meds: No Currently Unemployed: No Education: High School Diploma/GED Difficulty w/ Childcare or Family Care: No Living arrangements: with family Additional living arrangements comments: Lives in [place]. Has a teenage son. Additional occupation/education comments: Works at [employer]. Spiritual care concerns: No <Noemy Shelley APRN - Last Filed: 03/24/25 16:37> Exam 2 Narrative: GENERAL: Ill appearing, well-nourished, non-toxic, in acute distress. HEAD: Normocephalic, atraumatic. NECK: Supple. No adenopathy, no masses. RESPIRATORY: Airway patent, respirations nonlabored. Clear to auscultation bilaterally, no rales, rhonchi, wheezing. CARDIOVASCULAR: Tachycardia without murmurs, rubs, or gallops. Peripheral pulses 2+ and equal bilaterally. ABDOMINAL: Soft, nontender, nondistended, no hepatosplenomegaly. Normoactive BS. MUSCULOSKELETAL: Moves all extremities. Strength/ROM intact without gross deformities. SKIN: Warm, dry, normal color. No rashes. NEURO: A&O X3. Speech clear. Cranial nerves II-XII intact. No ataxic movements. PSYCHIATRIC: Appropriate mood and affect. Normal interaction. <Noemy Shelley APRN - Last Filed: 03/24/25 16:37> Course BIRD TENDER/PA Physician Supervision This visit was performed by both a physician and an APC. I performed all aspects of the MDM as documented. <Arjun Mendosa MD - Last Filed: 03/24/25 17:49> Vital Signs Vital signs: Vital Signs Pulse Rate 157 H 03/24/25 09:43 Respiratory Rate 20 03/24/25 09:43 Blood Pressure 199/139 H 03/24/25 09:43 Pulse Oximetry 100 03/24/25 09:43 Oxygen Delivery Room Air 03/24/25 09:43 Pulse Rate 159 H 03/24/25 16:30 Respiratory Rate 20 03/24/25 16:30 Blood Pressure 164/109 H 03/24/25 16:30 Pulse Oximetry 97 03/24/25 16:30 Oxygen Delivery Room Air 03/24/25 09:43 <Noemy Shelley, CRIME INVESTIGATOR SPECIAL AGENT - Last Filed: 03/24/25 16:37> Vital Signs Pulse Rate 157 H 03/24/25 09:43 Respiratory Rate 20 03/24/25 09:43 Blood Pressure 199/139 H 03/24/25 09:43 Pulse Oximetry 100 03/24/25 09:43 Oxygen Delivery Room Air 03/24/25 09:43 Pulse Rate 159 H 03/24/25 16:30 Respiratory Rate 20 03/24/25 16:30 Blood Pressure 164/109 H 03/24/25 16:30 Pulse Oximetry 97 03/24/25 16:30 Oxygen Delivery Room Air 03/24/25 09:43 <Arjun Mendosa MD - Last Filed: 03/24/25 17:49> MDM - Nausea/Vomiting/Diarrhea MDM Narrative Medical decision making narrative: Patient is a 44-year-old female who presents to the ER with complaints of alcohol poisoning. She reports last night she drank a 5th of whiskey. Patient reports she is on a ?3 day escoto and stop drinking sometime last night. She reports she drank more last night than she usually does. Pt reports she has gone through withdrawals in the past. Patient denies any marijuana or other illicit drug use. She denies any other medical history relevant to this ER visit. Pt denies any chest pain, shortness of breath, or recent fevers. 1000- Pt is requesting Zofran at this time. Labs Ordered: CBC, CMP, UA, UDS, ethanol, lipase Imaging Ordered: None necessary Medications Ordered: 1 L normal saline IV bolus x3, Zofran 4 mg IV, Macrobid p.o., hydroxyzine p.o., droperidol IM Diagnosis: urinary tract infection, cannabinoid hyperemesis, dehydration Risks: CIWA CIWA-Ar for Alcohol Withdrawal from [employer] on 03/24/2025 All calculations should be rechecked by clinician prior to use RESULT SUMMARY: 3 points Patients with scores <= typically do not require medication for withdrawal. INPUTS: Nausea/vomiting ?> 1 = Mild nausea and no vomiting Tremor ?> 0 = No tremor Paroxysmal sweats ?> 0 = No sweat visible Anxiety ?> 2 = (More severe symptoms) Agitation ?> 0 = Normal activity Tactile disturbances ?> 0 = None Auditory disturbances ?> 0 = Not present Visual disturbances ?> 0 = Not present Headache/fullness in head ?> 0 = Not Present Orientation/clouding of sensorium ?> 0 = Oriented, can do serial additions Patient Education/Shared MDM: Results of lab work and imaging shared with patient. She endorses significant improvement of symptoms following droperidol medication administration. Although patient's heart rate is still elevated, she has dropped from 150 down to the 120s. Patient's heart rate and blood pressure readings do not indicate that she is orthostatic. Her medical chart indicates she has had tachycardia at previous visits. Pt continues to deny chest pain or shortness of breath. She was given 3 L normal saline IV bolus to help correct her dehydration, which has also helped bring her heart rate down. Patient is requesting a prescription for Librium, as she has an appointment with [facility] tomorrow and does not want to start experiencing withdrawals prior to this appointment. She will be given her 1st dose of oral antibiotic here in the ER to treat her UTI. Patient's blood pressure readings are consistently high since she's been in the ER so she will be started on lisinopril and advised to follow up closely with her primary care provider. Patient strongly advised to refrain from further alcohol and marijuana use. 1545- Upon re-examination, patient's heart rate has gone back up into the 160s. After further discussion with patient it was advised she be admitted to the hospital for further evaluation and treatment. Patient verbalized understanding and is in agreement with plan. [id number]-spoke with hospitalist, KATHY Ortega, who was in agreement with plan for admission. She will be admitted to the IMU d/t her need for CIWA assessment. <Noemy Kerri Shelley, CRIME INVESTIGATOR SPECIAL AGENT - Last Filed: 03/24/25 16:37> Patient is a 44-year-old female who presents to the ER with complaints of alcohol poisoning. She reports last night she drank a 5th of whiskey. Patient reports she is on a ?3 day escoto and stop drinking sometime last night. She reports she drank more last night than she usually does. Pt reports she has gone through withdrawals in the past. Patient denies any marijuana or other illicit drug use. She denies any other medical history relevant to this ER visit. Pt denies any chest pain, shortness of breath, or recent fevers. 1000- Pt is requesting Zofran at this time. Labs Ordered: CBC, CMP, UA, UDS, ethanol, lipase Imaging Ordered: None necessary Medications Ordered: 1 L normal saline IV bolus x3, Zofran 4 mg IV, Macrobid p.o., hydroxyzine p.o., droperidol IM Diagnosis: urinary tract infection, cannabinoid hyperemesis, dehydration Risks: CIWA CIWA-Ar for Alcohol Withdrawal from [employer] on 03/24/2025 All calculations should be rechecked by clinician prior to use RESULT SUMMARY: 3 points Patients with scores <= typically do not require medication for withdrawal. INPUTS: Nausea/vomiting ?> 1 = Mild nausea and no vomiting Tremor ?> 0 = No tremor Paroxysmal sweats ?> 0 = No sweat visible Anxiety ?> 2 = (More severe symptoms) Agitation ?> 0 = Normal activity Tactile disturbances ?> 0 = None Auditory disturbances ?> 0 = Not present Visual disturbances ?> 0 = Not present Headache/fullness in head ?> 0 = Not Present Orientation/clouding of sensorium ?> 0 = Oriented, can do serial additions Patient Education/Shared MDM: Results of lab work and imaging shared with patient. She endorses significant improvement of symptoms following droperidol medication administration. Although patient's heart rate is still elevated, she has dropped from 150 down to the 120s. Patient's heart rate and blood pressure readings do not indicate that she is orthostatic. Her medical chart indicates she has had tachycardia at previous visits. Pt continues to deny chest pain or shortness of breath. She was given 3 L normal saline IV bolus to help correct her dehydration, which has also helped bring her heart rate down. Patient is requesting a prescription for Librium, as she has an appointment with [facility] tomorrow and does not want to start experiencing withdrawals prior to this appointment. She will be given her 1st dose of oral antibiotic here in the ER to treat her UTI. Patient's blood pressure readings are consistently high since she's been in the ER so she will be started on lisinopril and advised to follow up closely with her primary care provider. Patient strongly advised to refrain from further alcohol and marijuana use. 1545- Upon re-examination, patient's heart rate has gone back up into the 160s. After further discussion with patient it was advised she be admitted to the hospital for further evaluation and treatment. Patient verbalized understanding and is in agreement with plan. 1545-spoke with hospitalist, KATHY Ortega, who was in agreement with plan for admission. She will be admitted to the IMU d/t her need for CIWA assessment. This visit was performed by both a physician and an APC. I performed all aspects of the MDM as documented. <Arjun Mendosa MD - Last Filed: 03/24/25 17:49> Differential Diagnosis Differential diagnosis: Likely gastroenteritis, drug-induced nausea and vomiting, dehydration and other (Alcohol withdrawal) <Noemy Shelley APRN - Last Filed: 03/24/25 16:37> Lab Data Attestation: I reviewed the patient's lab results. <Noemy Shelley APRN - Last Filed: 03/24/25 16:37> Result diagrams: 03/24/25 10:00 03/24/25 10:00 <Noemy Shelley APRN - Last Filed: 03/24/25 16:37> Labs: Lab Results 03/24/25 03/24/25 03/24/25 Range/Units 10:00 10:38 11:44 WBC 14.0 H (4.5-10.0) K/mm3 RBC 5.55 H (4.2-5.4) M/mm3 Hgb 18.0 H (12.0-15.0) g/dL Hct 50.6 H (37.0-47.0) % MCV 91.2 (80-100) fl MCH 32.4 (26-34) pg MCHC 35.6 (32-36) g/dl RDW 13.0 (11.5-14.5) % Plt Count 346 (150-375) k/mm3 MPV 9.2 (7.4-10.4) fl Immature Gran % (Auto) 0.4 (0-0.5) % Neut % (Auto) 79.9 H (45.5-73.1) % Lymph % (Auto) 15.8 L (18.3-44.2) % [place] % (Auto) 3.4 (2.6-8.5) % Eos % (Auto) 0.0 (0-4.4) % Baso % (Auto) 0.5 (0.2-1.2) % Lymph # (Auto) 2.20 (0.9-3.2) K/mm3 [place] # (Auto) 0.5 (0.1-0.6) K/mm3 Eos # (Auto) 0.0 (0-0.3) K/mm3 Baso # (Auto) 0.1 (0.0-0.1) K/mm3 Abs Immat Gran (auto) 0.06 H (0.00-0.031) K/mm3 Absolute Neuts (auto) 11.1 H (1.3-6.7) K/mm3 Absolute Nucleated RBC 0.000 (0.0-0.012) K/mm3 Nucleated RBC % 0.0 (0.0-0.2) % Sodium 134 L (137-145) mmol/L Potassium 3.6 (3.4-5.0) mmol/L Chloride 97 L (98-107) mmol/L Carbon Dioxide 12 L (22-30) mmol/L Anion Gap 25 H (4-12) mmol/L BUN 10 (7-17) mg/dL Creatinine 0.78 (0.7-1.0) mg/dL Estim Creat Clear Calc 74 ml/min Estimated GFR > 60 (59 - ) Glucose 168 H (65-110) mg/dL POC Capillary Glucose 142 H (65-105) mg/dl Calcium 8.5 (8.4-10.2) mg/dL Total Bilirubin 0.8 (0.2-1.3) mg/dL AST 66 H (14-36) U/L ALT 59 H (6-35) U/L Alkaline Phosphatase 102 (38-126) U/L Total Protein 8.7 H (6.3-8.2) g/dL Albumin 4.7 (3.5-5.1) g/dL Lipase 33 (23-300) U/L Urine Color Yellow (Yellow) Urine Appearance Clear (Clear) Urine pH 6.0 (5.0-9.0) Ur Specific [place] 1.021 (1.001-1.035) Urine Protein 1+ H (Negative) mg/dL Urine Glucose (UA) Negative (Negative) mg/dL Urine Ketones 2+ H (Negative) mg/dL Ur Blood (Man) 1+ H (Negative) Urine Nitrate Negative (Negative) Urine Bilirubin Negative (Negative) Urine Urobilinogen 1.0 (<2.0) mg/dL Leukocyte Esterase Rfl Trace H (Negative) ALFONSO/UL Urine RBC 3-5 H (0-2) /hpf Urine WBC 11-20 H (0-3) /hpf Ur Squamous Epith Cells Occasional (Few) /hpf Urine Bacteria None seen /hpf Urine Casts 3-5 POC Urine HCG, Qual (Negative) Urine Opiates Screen Negative (Negative) Urine Methadone Screen Negative (Negative) Ur Barbiturates Screen Negative (Negative) Ur Phencyclidine Scrn Negative (Negative) Ur Amphetamine Screen Negative (Negative) U Benzodiazepines Scrn Negative (Negative) Urine Cocaine Screen Negative (Negative) U Cannabinoids Screen Positive A (Negative) Ethyl Alcohol 17 (<10) mg/dL 03/24/25 Range/Units 12:56 WBC (4.5-10.0) K/mm3 RBC (4.2-5.4) M/mm3 Hgb (12.0-15.0) g/dL Hct (37.0-47.0) % MCV (80-100) fl MCH (26-34) pg MCHC (32-36) g/dl RDW (11.5-14.5) % Plt Count (150-375) k/mm3 MPV (7.4-10.4) fl Immature Gran % (Auto) (0-0.5) % Neut % (Auto) (45.5-73.1) % Lymph % (Auto) (18.3-44.2) % [place] % (Auto) (2.6-8.5) % Eos % (Auto) (0-4.4) % Baso % (Auto) (0.2-1.2) % Lymph # (Auto) (0.9-3.2) K/mm3 [place] # (Auto) (0.1-0.6) K/mm3 Eos # (Auto) (0-0.3) K/mm3 Baso # (Auto) (0.0-0.1) K/mm3 Abs Immat Gran (auto) (0.00-0.031) K/mm3 Absolute Neuts (auto) (1.3-6.7) K/mm3 Absolute Nucleated RBC (0.0-0.012) K/mm3 Nucleated RBC % (0.0-0.2) % Sodium (137-145) mmol/L Potassium (3.4-5.0) mmol/L Chloride (98-107) mmol/L Carbon Dioxide (22-30) mmol/L Anion Gap (4-12) mmol/L BUN (7-17) mg/dL Creatinine (0.7-1.0) mg/dL Estim Creat Clear Calc ml/min Estimated GFR (59 - ) Glucose (65-110) mg/dL POC Capillary Glucose (65-105) mg/dl Calcium (8.4-10.2) mg/dL Total Bilirubin (0.2-1.3) mg/dL AST (14-36) U/L ALT (6-35) U/L Alkaline Phosphatase (38-126) U/L Total Protein (6.3-8.2) g/dL Albumin (3.5-5.1) g/dL Lipase (23-300) U/L Urine Color (Yellow) Urine Appearance (Clear) Urine pH (5.0-9.0) Ur Specific [place] (1.001-1.035) Urine Protein (Negative) mg/dL Urine Glucose (UA) (Negative) mg/dL Urine Ketones (Negative) mg/dL Ur Blood (Man) (Negative) Urine Nitrate (Negative) Urine Bilirubin (Negative) Urine Urobilinogen (<2.0) mg/dL Leukocyte Esterase Rfl (Negative) ALFONSO/UL Urine RBC (0-2) /hpf Urine WBC (0-3) /hpf Ur Squamous Epith Cells (Few) /hpf Urine Bacteria /hpf Urine Casts POC Urine HCG, Qual Negative (Negative) Urine Opiates Screen (Negative) Urine Methadone Screen (Negative) Ur Barbiturates Screen (Negative) Ur Phencyclidine Scrn (Negative) Ur Amphetamine Screen (Negative) U Benzodiazepines Scrn (Negative) Urine Cocaine Screen (Negative) U Cannabinoids Screen (Negative) Ethyl Alcohol (<10) mg/dL <Noemy Shelley, CRIME INVESTIGATOR SPECIAL AGENT - Last Filed: 03/24/25 16:37> Lab Results 03/24/25 03/24/25 03/24/25 Range/Units 10:00 10:38 11:44 WBC 14.0 H (4.5-10.0) K/mm3 RBC 5.55 H (4.2-5.4) M/mm3 Hgb 18.0 H (12.0-15.0) g/dL Hct 50.6 H (37.0-47.0) % MCV 91.2 (80-100) fl MCH 32.4 (26-34) pg MCHC 35.6 (32-36) g/dl RDW 13.0 (11.5-14.5) % Plt Count 346 (150-375) k/mm3 MPV 9.2 (7.4-10.4) fl Immature Gran % (Auto) 0.4 (0-0.5) % Neut % (Auto) 79.9 H (45.5-73.1) % Lymph % (Auto) 15.8 L (18.3-44.2) % [place] % (Auto) 3.4 (2.6-8.5) % Eos % (Auto) 0.0 (0-4.4) % Baso % (Auto) 0.5 (0.2-1.2) % Lymph # (Auto) 2.20 (0.9-3.2) K/mm3 [place] # (Auto) 0.5 (0.1-0.6) K/mm3 Eos # (Auto) 0.0 (0-0.3) K/mm3 Baso # (Auto) 0.1 (0.0-0.1) K/mm3 Abs Immat Gran (auto) 0.06 H (0.00-0.031) K/mm3 Absolute Neuts (auto) 11.1 H (1.3-6.7) K/mm3 Absolute Nucleated RBC 0.000 (0.0-0.012) K/mm3 Nucleated RBC % 0.0 (0.0-0.2) % Sodium 134 L (137-145) mmol/L Potassium 3.6 (3.4-5.0) mmol/L Chloride 97 L (98-107) mmol/L Carbon Dioxide 12 L (22-30) mmol/L Anion Gap 25 H (4-12) mmol/L BUN 10 (7-17) mg/dL Creatinine 0.78 (0.7-1.0) mg/dL Estim Creat Clear Calc 74 ml/min Estimated GFR > 60 (59 - ) Glucose 168 H (65-110) mg/dL POC Capillary Glucose 142 H (65-105) mg/dl Calcium 8.5 (8.4-10.2) mg/dL Total Bilirubin 0.8 (0.2-1.3) mg/dL AST 66 H (14-36) U/L ALT 59 H (6-35) U/L Alkaline Phosphatase 102 (38-126) U/L Total Protein 8.7 H (6.3-8.2) g/dL Albumin 4.7 (3.5-5.1) g/dL Lipase 33 (23-300) U/L Urine Color Yellow (Yellow) Urine Appearance Clear (Clear) Urine pH 6.0 (5.0-9.0) Ur Specific [place] 1.021 (1.001-1.035) Urine Protein 1+ H (Negative) mg/dL Urine Glucose (UA) Negative (Negative) mg/dL Urine Ketones 2+ H (Negative) mg/dL Ur Blood (Man) 1+ H (Negative) Urine Nitrate Negative (Negative) Urine Bilirubin Negative (Negative) Urine Urobilinogen 1.0 (<2.0) mg/dL Leukocyte Esterase Rfl Trace H (Negative) ALFONSO/UL Urine RBC 3-5 H (0-2) /hpf Urine WBC 11-20 H (0-3) /hpf Ur Squamous Epith Cells Occasional (Few) /hpf Urine Bacteria None seen /hpf Urine Casts 3-5 POC Urine HCG, Qual (Negative) Urine Opiates Screen Negative (Negative) Urine Methadone Screen Negative (Negative) Ur Barbiturates Screen Negative (Negative) Ur Phencyclidine Scrn Negative (Negative) Ur Amphetamine Screen Negative (Negative) U Benzodiazepines Scrn Negative (Negative) Urine Cocaine Screen Negative (Negative) U Cannabinoids Screen Positive A (Negative) Ethyl Alcohol 17 (<10) mg/dL 03/24/25 Range/Units 12:56 WBC (4.5-10.0) K/mm3 RBC (4.2-5.4) M/mm3 Hgb (12.0-15.0) g/dL Hct (37.0-47.0) % MCV (80-100) fl MCH (26-34) pg MCHC (32-36) g/dl RDW (11.5-14.5) % Plt Count (150-375) k/mm3 MPV (7.4-10.4) fl Immature Gran % (Auto) (0-0.5) % Neut % (Auto) (45.5-73.1) % Lymph % (Auto) (18.3-44.2) % [place] % (Auto) (2.6-8.5) % Eos % (Auto) (0-4.4) % Baso % (Auto) (0.2-1.2) % Lymph # (Auto) (0.9-3.2) K/mm3 [place] # (Auto) (0.1-0.6) K/mm3 Eos # (Auto) (0-0.3) K/mm3 Baso # (Auto) (0.0-0.1) K/mm3 Abs Immat Gran (auto) (0.00-0.031) K/mm3 Absolute Neuts (auto) (1.3-6.7) K/mm3 Absolute Nucleated RBC (0.0-0.012) K/mm3 Nucleated RBC % (0.0-0.2) % Sodium (137-145) mmol/L Potassium (3.4-5.0) mmol/L Chloride (98-107) mmol/L Carbon Dioxide (22-30) mmol/L Anion Gap (4-12) mmol/L BUN (7-17) mg/dL Creatinine (0.7-1.0) mg/dL Estim Creat Clear Calc ml/min Estimated GFR (59 - ) Glucose (65-110) mg/dL POC Capillary Glucose (65-105) mg/dl Calcium (8.4-10.2) mg/dL Total Bilirubin (0.2-1.3) mg/dL AST (14-36) U/L ALT (6-35) U/L Alkaline Phosphatase (38-126) U/L Total Protein (6.3-8.2) g/dL Albumin (3.5-5.1) g/dL Lipase (23-300) U/L Urine Color (Yellow) Urine Appearance (Clear) Urine pH (5.0-9.0) Ur Specific [place] (1.001-1.035) Urine Protein (Negative) mg/dL Urine Glucose (UA) (Negative) mg/dL Urine Ketones (Negative) mg/dL Ur Blood (Man) (Negative) Urine Nitrate (Negative) Urine Bilirubin (Negative) Urine Urobilinogen (<2.0) mg/dL Leukocyte Esterase Rfl (Negative) ALFONSO/UL Urine RBC (0-2) /hpf Urine WBC (0-3) /hpf Ur Squamous Epith Cells (Few) /hpf Urine Bacteria /hpf Urine Casts POC Urine HCG, Qual Negative (Negative) Urine Opiates Screen (Negative) Urine Methadone Screen (Negative) Ur Barbiturates Screen (Negative) Ur Phencyclidine Scrn (Negative) Ur Amphetamine Screen (Negative) U Benzodiazepines Scrn (Negative) Urine Cocaine Screen (Negative) U Cannabinoids Screen (Negative) Ethyl Alcohol (<10) mg/dL <Arjun Mendosa MD - Last Filed: 03/24/25 17:49> Discharge Plan Discharge Clinical Impression: Alcohol abuse, Elevated blood pressure reading, Dehydration, Cannabinoid hyperemesis syndrome, Urinary tract infection, Alcohol withdrawal, Hypertension <Noemy Shelley APRN - Last Filed: 03/24/25 16:37> Patient Disposition: Still a Patient <Noemy Shelley APRN - Last Filed: 03/24/25 16:37> Condition: Serious <Noemy Shelley APRN - Last Filed: 03/24/25 16:37>
[2025-03-24] MEDS: ONDANSETRON INJ 4 MG/2 ML VIAL IV PUSH (10:02)
[2025-03-24] MEDS: SODIUM CHLORIDE 0.9% IV 1,000 ML 999 ML IV CONT ×3 (10:02→13:52)
[2025-03-24 10:14] LABS: Hematocrit 50.6 % (37.0-47.0); Hemoglobin 18.0 g/dL (12.0-15.0); Immature Granulocyte Percent A 0.4 % (0-0.5); Lymphocytes Absolute Auto 2.20 K/mm3 (0.9-3.2); Mean Corpuscular HGB Conc 35.6 g/dl (32-36); Mean Corpuscular Hemoglobin 32.4 pg (26-34); Mean Corpuscular Volume 91.2 fl (80-100); Nucleated Red Blood Cells Absolute Auto 0.000 K/mm3 (0.0-0.012); Nucleated Red Blood Cells Perc 0.0 % (0.0-0.2); Platelet Count Result 346 k/mm3 (150-375); Red Blood Count 5.55 M/mm3 (4.2-5.4); White Blood Count 14.0 K/mm3 (4.5-10.0)
--- OUTSIDE RECORDS SUMMARY | 2025-03-24 10:21 | XMS_ITS | Clinical Summary ---
Author Organization [facility] Address [address] [place] [address] Care Team Providers Care Breadman Name Role Phone Unavailable Primary Care Provider Unavailabl e Source Comments [facility] [employer],non-owned Affiliates and Associated Physician Practices is amultiple site organization consisting of ambulatory clinics and hospital sitesin [place], [place], [place] and [place]. This disclosure is being madepursuant to the Care Everywhere program and may not contain all information available regarding this patient. 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
--- OUTSIDE RECORDS SUMMARY | 2025-03-24 10:21 | XMS_ITS | Clinical Summary ---
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 Name Role Phone Awilda Ramires MD Unavailable [phone] Eren Fry MD Primary Care Provider [phone] Lui Oliva MD Unavailable Allergies No known active allergies Medications traZODone (DESYREL) 50 mg tabletIndicatio ns:insomnia associated with depression Take 1 tablet (50 mg total) by mouth nightly Active phentermine 37.5 mg capsule Take 1 capsule (37.5 mg total) by mouth every morning 12/02/2024 Active oxyCODONE (ROXICODONE) 5 mg immediate release tabletIndicatio ns:Pain Take 1 tablet (5 mg total) by mouth every 4 (four) hours as needed for pain 10 tablet 01/27/2025 Active Active Problems Problem Noted Date Diagnosed Date Alcohol withdrawal syndrome without complication 11/27/2024 Anal fistula 10/31/2024 Chronic systolic heart failure 11/08/2013 Overview (09/27/2016): CHR SYSTOLIC HRT FAILURE 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 Overview (09/29/2016): SECOND CARDIOMYOPATH NOS Hypertension 11/08/2013 Overview (09/29/2016): HYPERTENSION NOS Encounters Date Type Department Care Team Description 03/17/2025 Telephone [facility] Medicine Surgery [address] [place] [address] Medical Office Building [address] [place] [address] Aria Hager, RN 03/16/2025 Telephone [facility] Surgery [address] [facility] Medical Office Building [address] [place] [address] Aria Hager, RN 03/09/2025 Telephone [facility] Surgery [address] [facility] Medical Office Building [address] [place] [address] Aria Hager, RN 03/09/2025 Telephone [facility] Surgery [address] [facility] Medical Office Building [address] [place] [address] Aria Hager, RN 02/26/2025 [facility] Warm Hand Off Program [address] [place] [address] Les Arguello RRT 02/20/2025 Telephone [facility] Surgery [address] [facility] 2nd Floor [address] [place] [address] Shanon Blount, [facility] 02/02/2025 Telephone [facility] Surgery [address] [facility] Medical Office [facility] [address] [place] [phone] Jennifer Angel, RN 01/30/2025 Telephone [facility] Surgery [address] [facility] Medical Office Building [address] [place] [phone] Jennifer Angel, RN 01/29/2025 Telephone [facility] Surgery [address] [facility] Medical Office Building [address] [place] [phone] Jennifer Angel, RN 01/27/2025 Telephone [facility] Surgery [address] [facility] Medical Office Building [address] [place] [phone] Jennifer Angel, RN 01/23/2025 7:32 AM CDT Anesthesia Event [facility] Surgery at [facility] [address] [place] [address] Génesis Salazar MD PhD 01/23/2025 7:30 AM CDT - 01/23/2025 8:00 AM CDT Surgery [facility] Surgery at [address] [address] Lui Oliva MD EXAM UNDER ANESTHESIA - RECTUM 01/23/2025 6:07 AM CDT - 01/23/2025 8:43 AM CDT Hospital Encounter [facility] Surgery at [address] [address] Lui Oliva MD Anal fistula (Primary Dx) Discharge Disposition: Discharge to home or self care 01/22/2025 Telephone [facility] Surgery [address] [place] [phone] Shanon Blount, RMA Surgery Confirmation 01/07/2025 Telephone [facility] Surgery [address] [place] [phone] Shanon Blount, RMA CPAP Follow Up from Last 3 Months Surgical History Surgery Date Site/Laterality Comments CYST REMOVAL 05/25/2023 - 06/24/2023 rectal CYST REMOVAL 11/23/2022 - 12/22/2022 rectal SECTION 06/25/2008 - 06/24/2009 ANAL EXAMINATION UNDER ANESTHESIA 01/23/2025 Exam under anesthesia, seton placement Medical History Medical History Date Comments Anal [...] Tobacco: Never Tobacco Cessation:Counseling Given: Not Answered [facility] Utilities Answer Date Recorded In the past 12 months has [email or web address], gas, oil, or water [employer] threatened to shut off services in your home? No 11/28/2024 Social Connection and Isolation Panel Answer Date Recorded In a typical week, how many times do you talk on the phone with family, friends, or neighbors? More than three times a week 11/28/2024 How often do you get togethe r with friends or relatives? Once a week 11/28/2024 How often do you attend chur ch or faith services? Never 11/28/2024 Do you belong to any clubs o r organizations such as jainism groups, unions, fraternal or athletic groups, or school groups? No 11/28/2024 How often do you attend meet ings of the clubs or organizations you belong to? Never 11/28/2024 Are you , , di vorced, , never , or living with a partner? Never 11/28/2024 AUDIT-C Answer Date Recorded Q1: How often do you have a drink containing alc ohol? 2-3 times a week 01/23/2025 Q2: How many drinks containi ng alcohol do you have on a typical day when you are drinking? 3 or 4 01/23/2025 Q3: How often do you have si x or more drinks on one occasion? Weekly 01/23/2025 Overall Financial Resource Strain (CARDIA) Answe r [...] any time in the past 12 m [facility], were you homeless or living in a detention (including now)? No 11/28/2024 Personal Safety Answer Date Recorded Have you ever been in or are you currently in a harmful physical or emotional relationship or is someone making you feel afraid or unsafe? 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 salazar aware of bp ok to discharge pt home. Pulse 88 01/23/2025 8:10 AM CDT Temperature 36.2 C (97.2 F) 01/23/2025 7:55 AM CDT Respiratory Rate 22 01/23/2025 8:10 AM CDT Oxygen Saturation 100% 01/23/2025 8:1 0 AM CDT Inhaled Oxygen Concentration - - Weight 77.1 kg (170 lb) 01/23/2025 6:46 AM CDT Height 154.9 cm (5' 1) 01/23/2025 6:46 AM CDT Body Mass Index 32.12 01/23/2025 6:46 AM CDT Plan of Treatment Health Maintenance Due Date [...] series) 2008 Covid-19 Vaccine (2 - season) 02/23/202504/2021 Influenza Vaccine (#1) 2025 Procedures Procedure Name Priority Date/Time Associated Diagnosis Comments PLACEMENT SETON 01/23/2025 7:32 AM CDT Anal fistula EXAM UNDER ANESTHESIA - RECTUM 01/23/2025 7:32 AM CDT Anal fistula POCT HCG, URINE Routine 01/23/2025 6:30 AM CDT from Last 3 Months Results * POCT hCG, urine (01/23/2025 6:30 AM CDT) HCG, ur, POC Negative Negative Lot Number [id number] QC Backgroud Clear Acceptable QC Control Line Acceptable Urine 01/23/2025 6:30 AM CDT Génesis Salazar MD PhD POINT OF CARE [place] T ORDERABLES Final Result from Last 3 Months Insurance [facility] Member Subscriber Plan / Payer (Ef fective 2024-Present) Name:Shruthi Evans Relation to Subscriber:Self Name:Shruthi Evans Payer ID:[id number] (NAIC) Group ID:Not on file Type:MEDICAID RISK OTHER Address: [place] [id number] Advance Directives For more information, please contact: [phone] * Full Code (Latest Code Status on File) Date Activated Date Inactivated Comments 11/27/2024 10:24 PM 11/29/2024 1:02 PM * Full Code Date Activated Date Inactivated Comments 11/27/2024 10:24 PM 11/27/2024 10:24 PM Care Teams Shoemaking Cutter Relationship Specialty Start Date End Date Eren Fry MD [address] [facility] [place] [address] PCP - General Family Medicine 10/30/24 Awilda Ramires MD [address] [facility] [address] [place] [address] Consulting Physician Surgery 09/16/24 Lui Oliva MD [phone] [place] [address] Surgeon Colon and Rectal Surgery 11/03/24
--- OUTSIDE RECORDS SUMMARY | 2025-03-24 10:21 | XMS_ITS | Patient Health Record ---
Author Organization [facility] [employer] [facility] Address [address] [facility] [address] [place] [address] Care Team Providers Care Patrol Driver Name Role Phone Yordy Mcnally Unavailable [phone] Reason For Referral No Information Medications Medication SIG (Take, Route, Frequency, Duration) Notes Start Date End Date Status traZODone HCl 100 MG Tablet Oral 05/06/2018 Active ALPRAZolam 0.5 MG Tablet Oral 05/06/2018 Active FLUoxetine HCl 10 MG Capsule Oral 05/06/2018 Active traZODone HCl 50 MG Tablet Oral 05/06/2018 Active ALPRAZolam 1 MG Tablet Oral 05/06/2018 Active Social History Social History Additional Details Category Social Info Options Details Migrated Social History Migrated Social History Alcohol Intake: Occasional 05/06/2018,Tobacco Years: Never smoker 05/06/2018 Plan Of Treatment No Information Insurance Providers Payer Name Payer Address Payer Phone Subscriber Number Group Number Insured Name Patient Relationship to Insured Coverage Start Date Coverage End Date [facility] Medicaid Replacement - [employer]mo [address] [place] [phone] [id number] XIANG HOFFMAN Self - patient is the insured
[2025-03-24 10:36] LABS: Alanine Aminotransferase 59 U/L (6-35); Albumin Level 4.7 g/dL (3.5-5.1); Alkaline Phosphatase 102 U/L (38-126); Anion Gap 25 mmol/L (4-12); Aspartate Amino Transferase 66 U/L (14-36); Bilirubin,Total 0.8 mg/dL (0.2-1.3); Blood Urea Nitrogen 10 mg/dL (7-17); Calcium 8.5 mg/dL (8.4-10.2); Carbon Dioxide 12 mmol/L (22-30); Chloride 97 mmol/L (98-107); Estimated CRCL calculation 74 ml/min; Estimated Glomerular Filt Rate > 60; Glucose 168 mg/dL (65-110); Lipase 33 U/L (23-300); Potassium 3.6 mmol/L (3.4-5.0); Sodium 134 mmol/L (137-145); Total Protein 8.7 g/dL (6.3-8.2)
--- NOTE | 2025-03-24 10:40 | PC.NURSE ---
Pt attempted to provide a urine specimine and could not. Pt was told that if she feels like she can go to please push her call light and we will come and take her.
[2025-03-24 11:56] LABS: Add Urine Microscopic? YES; Appearance Urine Clear (Clear); Glucose Urine UA Negative (Negative); Leukocyte Esterase Ur Trace LEU/UL (Negative); Nitrate Urine Negative (Negative); Specific Grav Ur 1.021 (1.001-1.035)
--- NOTE | 2025-03-24 12:45 | ECG_ITS ---
Test Date: 2025-03-24 13:03:03 Measurements Intervals [place] Rate: 132 P: 52 MS: 137 QRS: 39 QRSD: 82 T: 34 QT: 304 QTc: 451 Interpretive Statements SINUS TACHYCARDIA MINIMAL ST DEPRESSION [0.025+ mV ST DEPRESSION] ABNORMAL RHYTHM ECG Compared to ECG 10/07/2024 08:34:46 ST (T wave) deviation now present Electronically Signed On 03-24-2025 14:45:42 CDT by Tanya Shell M.D.
[2025-03-24 12:49] LABS: Cannabinoid Screen Urine Positive (Negative)
[2025-03-24 13:00] LABS: BEDSIDEPREGUCG Negative (Negative)
[2025-03-24] MEDS: NITROFURANTOIN MONOHYD MACROCR 100 MG CAP PO (13:53)
--- NOTE | 2025-03-24 16:07 | ECG_ITS ---
Test Date: 2025-03-24 16:26:06 Measurements Intervals [place] Rate: 160 P: 55 PA: 108 QRS: 48 QRSD: 77 T: 38 QT: 286 QTc: 468 Interpretive Statements SINUS TACHYCARDIA WITH SHORT PA INTERVAL WITH OCCASIONAL SUPRAVENTRICULAR PREMATURE COMPLEXES NONSPECIFIC ST & T-WAVE ABNORMALITY Electronically Signed On 03-24-2025 16:59:05 CDT by Tanya Shell M.D.
--- NOTE | 2025-03-24 16:12 | P.HP_ITS ---
H&P: HPI History of Present Illness Date/Time: 03/24/25 16:12 Chief Complaint: Nausea vomiting diarrhea Narrative: 44-year-old female with past medical history of alcohol abuse, hyperemesis from cannabis presents the hospital for nausea vomiting and diarrhea. Patient states that her last drink was yesterday. Patient states that she is agitated, and headache. Patient's lab work shows leukocytosis at 14.0, hemoglobin of 18.0 sodium of 134, chloride 97, carbon dioxide 12, anion gap 25, glucose of 168, AST of 66, ALT of 59, UA with trace leukocyte esterase, negative for nitrates. HCG negative, dex call G positive for cannabinoids, ethanol level 17. Patient ended up getting 3 L of IV fluids in the emergency room with heart rate between 130s and 150s, hypertension 177/129, patient has admitted for tachycardia and hypertensive urgency. Review of Systems Review of Systems: 12 systems were reviewed and are negative except for as per HPI. [facility], [facility] Past Medical History Medical History Hypertension Preeclampsia cardiomyopathy Alcohol abuse Surgical History Surgical History History of anal fistulotomy History of incision and drainage I&D of perianal abscess on 12/30/23. History of section Family History Family History Father Diabetes mellitus Mother Chronic obstructive pulmonary disease Heart disease Grandparent Lung cancer Social History Social History Social History: Surrogate medical decision maker: Shannon Lopez, friend. Code status: Full code. Smoking status: Never smoker Alcohol intake: current Drinks per week: 28 Alcohol use details: Up to a 5th of whiskey a day. Substance use: never Substance use type: does not use Other substance usage details: Daily Last use: 10/06/24 Do You Feel Safe in your Home?: Yes Lack of Transportation: No Lack of Food: Never True Current Housing: I Have Housing Concerned About Future Housing: No Difficulty Paying Gas/Electric Bills: No Difficulty Paying for Meds: No Currently Unemployed: No Education: High School Diploma/GED Difficulty w/ Childcare or Family Care: No Living arrangements: with family Additional living arrangements comments: Lives in [place]. Has a teenage son. Additional occupation/education comments: Works at [employer]. Spiritual care concerns: No Meds Home Medications and Allergies Home Medications ?Medication ?Instructions ?Recorded ?Confirmed ?Type diphenhydramine HCl 25 mg capsule 25 mg PO Q8H PRN anx iety 03/24/25 03/24/25 History (Benadryl) trazodone 50 mg tablet 50 mg PO HS 03/24/25 5 History Allergies Allergy/AdvReac Type Severity Reaction Status Date / Time No Known Allergies Allergy Verified 03/24/25 18:30 Vital Signs Vital Signs - 24 hr 03/24/25 09:43 03/24/25 12:00 03/24/25 13:45 Pulse Rate 157 H 135 H 142 H Respiratory Rate 20 21 H 24 H Blood Pressure 199/139 H 174/126 H 180/136 H Pulse Oximetry 100 99 99 Oxygen Delivery Room Air 03/24/25 15:29 03/24/25 15:30 03/24/25 15:30 Pulse Rate 124 H 129 H 132 H Respiratory Rate Blood Pressure 184/123 H 182/132 H 177/129 H Pulse Oximetry Oxygen Delivery Exam Narrative: General: well appearing, appears stated age. No acute distress HEENT: normocephalic, atraumatic. Mucous membranes moist. EOMI, PERRLA, bilateral sclera anicteric, no conjunctival injection. Neck supple without JVD, lymphadenopathy, or bruit. Respiratory: clear to ascultation bilaterally. No rales/rhonic/wheezes. Cardiovascular: Regular rate and rhythm, normal S1-S2 upon ascultation. No murmurs, rubs, or clicks. PMI is nondisplaced, capillary refill less than 3 second. Abdomen: Soft, round, no pulsatile masses, nondistended and nontender. No rebound, no guarding. No CVA tenderness, no hepatosplenomegaly. Bowel sounds present to all four quadrants. No high pitch or tinkling sounds, resonant to percussion. Extremities: No cyanosis, clubbing, or edema present. Pulses are palpable 2/2. Active ROM to all four extremities. Minor tremors Neuro: Alert and orientated x 4. PERRLA. Cranial nerves 2-12 intact without focal deficit. Skin: Warm, dry, and intact, without rash, erythema, or lesion. Psych: pleasant, cooperative, normal speech, normal affect, no hallucinations, no dysarthia H&P: Results Labs Labs: Short CBC 03/24/25 Range/Units 10:00 WBC 14.0 H (4.5-10.0) K/mm3 Hgb 18.0 H (12.0-15.0) g/dL Hct 50.6 H (37.0-47.0) % Plt Count 346 (150-375) k/mm3 BMP 03/24/25 10:00 Sodium 134 L Potassium 3.6 Chloride 97 L Carbon Dioxide 12 L BUN 10 Creatinine 0.78 Glucose 168 H Calcium 8.5 Liver Function 03/24/25 Range/Units 10:00 Total Bilirubin 0.8 (0.2-1.3) mg/dL AST 66 H (14-36) U/L ALT 59 H (6-35) U/L Alkaline Phosphatase 102 (38-126) U/L Albumin 4.7 (3.5-5.1) g/dL Urine 03/24/25 Range/Units 11:44 Urine Color Yellow (Yellow) Urine Appearance Clear (Clear) Urine pH 6.0 (5.0-9.0) Ur Specific [place] 1.021 (1.001-1.035) Urine Protein 1+ H (Negative) mg/dL Urine Glucose (UA) Negative (Negative) mg/dL Assessment and Plan Assessment and plan (1) Alcohol abuse: Code(s): F10.10 - Alcohol abuse, uncomplicated Status: Acute Assessment and Plan: [facility] protocol Valium, Librium, thiamine and multivitamin Telemetry monitoring Seizure precautions (2) Cannabinoid hyperemesis syndrome: Code(s): R11.2 - Nausea with vomiting, unspecified; F12.90 - Cannabis use, unspecified, uncomplicated Status: Acute Assessment and Plan: Compazine IVF (3) Hypertensive urgency: Code(s): I16.0 - Hypertensive urgency Status: Acute Assessment and Plan: Labetalol and hydralazine p.r.n. (4) Tachycardia: Code(s): R00.0 - Tachycardia, unspecified Status: Acute Assessment and Plan: Labetalol p.r.n. Repeat EKG Admit patient to IMU with telemetry monitoring (5) Urinary tract infection: Code(s): N39.0 - Urinary tract infection, site not specified Status: Acute Assessment and Plan: Macrobid given emergency room Switched to Rocephin due to tachycardia increased lactic acidosis however that can be related to alcohol withdrawals (6) Leukocytosis: Code(s): D72.829 - Elevated white blood cell count, unspecified Status: Acute Assessment and Plan: Leukocytosis possibly related to UTI (7) Lactic acidosis: Code(s): E87.20 - Acidosis, unspecified Status: Acute Assessment and Plan: Likely due to metabolic acidosis from alcoholism Patient was given 3 L IV fluids prior to lactic acid being drawn of 2.9 Repeat lactic acid in a.m. (8) Hypophosphatemia: Code(s): E83.39 - Other disorders of phosphorus metabolism Status: Acute Assessment and Plan: Likely due to cyclical vomiting and alcohol Repleted with sodium phos (9) Hypomagnesemia: Code(s): E83.42 - Hypomagnesemia Status: Acute Assessment and Plan: Likely due to cyclical vomiting with alcoholism Repleted BMP in the morning Quality VTE Prophylaxis VTE prophylaxis: mechanical ordered If No VTE Prophylaxis Answer both mechanical and pharmacologic: Reason no pharmacologic proph: low risk/not indicated Hospitalist MIPS Advance Care Plan I have confirmed that the patient's Advanced Care Plan is present, code status is documented, or surrogate decision maker is listed in patient medical record.: Yes Medication Reconciliation I have utilized all available resources to obtain, update and review the patients current medications (includes all prescriptions, OTC, herbals, cannabis, and nutritional supplements).: Yes
[2025-03-24] MEDS: DEXTROSE 5%/0.9% SOD CHL 1,000 ML 125 ML IV CONT (16:20)
[2025-03-24] MEDS: THIAMINE HCL 200 MG/2 ML VIAL 100 MG IV PUSH (16:21)
[2025-03-24] MEDS: MIDAZOLAM HCL (*CRX) 2 MG/2 ML VIAL IV PUSH (16:21)
[2025-03-24] MEDS: FOLIC ACID 1 MG/0.2 ML INJ IV PUSH (16:30)
[2025-03-24 16:33] LABS: Magnesium 1.5 mg/dL (1.6-2.3)
[2025-03-24 16:45] LABS: CRP < 0.5 mg/dL (<1.0)
[2025-03-24] MEDS: MAGNESIUM SULF 1 GM/D5W 100 ML 1 GM/100 ML BAG IVPB (17:03)
--- NOTE | 2025-03-24 18:17 | ADMGEN ---
This patient, Shruthi Evans, was admitted to IMU Room 205-01 @ 1815.Patientoriented to hospital policies and general routines including ID bracelet, bed and alarms, visiting hours, pain management, procedures, bathroom and other care routines, personal items, smoking policy, room service/diet, and visiting hours. Information on how to activate the Rapid Response Team has been discussed. Patientare encouraged to report perceived risks to care and to ask questions if they do not understand what they are told or what they should do.
[2025-03-24] MEDS: diazePAM INJ (*CRX) 10 MG/2 ML SYRINGE 5 MG IV PUSH (20:33)
[2025-03-24] MEDS: chlordiazePOXIDE (*CRX) 25 MG CAPSULE 50 MG PO (20:36)
[2025-03-24] MEDS: POTASSIUM PHOS,M-BASIC-D-BASIC 15 MMOL in SODIUM CHLORIDE 0.9% IV 250 ML 63.75 MMOL IVPB (20:49)
[2025-03-25] VITALS (9 sets, daily range): BP systolic 171–195; BP diastolic 102–127; PULSE 96–136; RESP 15–18; TEMP 36.5–36.6; O2SAT 98–100
[2025-03-25] MEDS: chlordiazePOXIDE (*CRX) 25 MG CAPSULE 50 MG PO ×2 (00:22→05:50)
[2025-03-25] MEDS: diazePAM INJ (*CRX) 10 MG/2 ML SYRINGE 5 MG IV PUSH ×2 (00:24→05:47)
[2025-03-25] MEDS: cefTRIAXone 1 GM in SODIUM CHLORIDE 0.9% IV 50 ML 100 ML IVPB (03:05)
[2025-03-25 04:20] LABS: Hematocrit 39.4 % (37.0-47.0); Hemoglobin 13.6 g/dL (12.0-15.0); Immature Granulocyte Percent A 0.5 % (0-0.5); Lymphocytes Absolute Auto 2.02 K/mm3 (0.9-3.2); Mean Corpuscular HGB Conc 34.5 g/dl (32-36); Mean Corpuscular Hemoglobin 32.3 pg (26-34); Mean Corpuscular Volume 93.6 fl (80-100); Nucleated Red Blood Cells Absolute Auto 0.000 K/mm3 (0.0-0.012); Nucleated Red Blood Cells Perc 0.0 % (0.0-0.2); Platelet Count Result 204 k/mm3 (150-375); Red Blood Count 4.21 M/mm3 (4.2-5.4); White Blood Count 8.6 K/mm3 (4.5-10.0)
[2025-03-25 04:36] LABS: Anion Gap 6 mmol/L (4-12); Blood Urea Nitrogen 6 mg/dL (7-17); Calcium 7.9 mg/dL (8.4-10.2); Carbon Dioxide 24 mmol/L (22-30); Chloride 104 mmol/L (98-107); Estimated CRCL calculation 87 ml/min; Estimated Glomerular Filt Rate > 60; Glucose 126 mg/dL (65-110); Magnesium 2.4 mg/dL (1.6-2.3); Potassium 3.3 mmol/L (3.4-5.0); Sodium 134 mmol/L (137-145)
[2025-03-25] MEDS: DEXTROSE 5%/0.9% SOD CHL 1,000 ML 125 ML IV CONT (05:53)
--- NOTE | 2025-03-25 09:29 | PC.NURSE ---
pt leaving ama d/t not wanting to miss work. aware and has spoken with the patient. AMA form signed by the patient and pt understands the risks. IV removed. tele removed.
--- NOTE | 2025-03-25 10:21 | PM.DS ---
DS: Admitting Diagnosis Discharge Date 03/25/25 Admitting Diagnosis Elevated BP DS: Discharge Diagnosis Discharge Diagnosis (1) Hypertensive urgency: Code(s): I16.0 - Hypertensive urgency Status: Acute DS: Summary Hospital Course Reason for hospitalization: Elevated BP Hospital Course: 44-year-old female with past medical history of alcohol abuse, hyperemesis from cannabis presented the hospital for nausea vomiting and diarrhea. Patient states that her last drink was yesterday. Patient states that she is agitated, and headache. Patient's lab work showed leukocytosis at 14.0, hemoglobin of 18.0 sodium of 134, chloride 97, carbon dioxide 12, anion gap 25, glucose of 168, AST of 66, ALT of 59, UA with trace leukocyte esterase, negative for nitrates. HCG negative, dex call G positive for cannabinoids, ethanol level 17. Patient ended up getting 3 L of IV fluids in the emergency room with heart rate between 130s and 150s, hypertension 177/129, patient has admitted for tachycardia and hypertensive urgency. She was being treated for elevated blood pressure, blood pressure was still elevated. This morning she decided to leave against medical advice if she has to be back to her job. Patient understands the risk of untreated uncontrolled hypertension. Status at Discharge Functional status at discharge: independent ambulation Time Spent with Patient Time attestation: Total time spent providing and/or coordinating discharge services:29 mins Exam Narrative: Not done/patient leaving against medical advice DS: Data Data Completed and Pending Labs on day of discharge: Labs from last 24 hours 03/25/25 03/25/25 03/24/25 03:58 00:25 18:46 WBC 8.6 RBC 4.21 Hgb 13.6 D Hct 39.4 MCV 93.6 MCH 32.3 MCHC 34.5 RDW 13.6 Plt Count 204 MPV 9.6 Immature Gran % (Auto) 0.5 Neut % (Auto) 68.6 Lymph % (Auto) 23.5 [place] % (Auto) 6.8 Eos % (Auto) 0.3 Baso % (Auto) 0.3 Lymph # (Auto) 2.02 [place] # (Auto) 0.6 Eos # (Auto) 0.0 Baso # (Auto) 0.0 Abs Immat Gran (auto) 0.04 H Absolute Neuts (auto) 5.9 Absolute Nucleated RBC 0.000 Nucleated RBC % 0.0 ESR Sodium 134 L Potassium 3.3 L Chloride 104 Carbon Dioxide 24 Anion Gap 6 BUN 6 L Creatinine 0.67 L Estim Creat Clear Calc 87 Estimated GFR > 60 Glucose 126 H POC Capillary Glucose 142 H 152 H Lactic Acid 1.4 Calcium 7.9 L Phosphorus 2.2 L Magnesium 2.4 H Total Bilirubin AST ALT Alkaline Phosphatase C-Reactive Protein Total Protein Albumin Lipase Urine Color Urine Appearance Urine pH Ur Specific [place] Urine Protein Urine Glucose (UA) Urine Ketones Ur Blood (Man) Urine Nitrate Urine Bilirubin Urine Urobilinogen Leukocyte Esterase Rfl Urine RBC Urine WBC Ur Squamous Epith Cells Urine Bacteria Urine Casts POC Urine HCG, Qual Urine Opiates Screen Urine Methadone Screen Ur Barbiturates Screen Ur Phencyclidine Scrn Ur Amphetamine Screen U Benzodiazepines Scrn Urine Cocaine Screen U Cannabinoids Screen Ethyl Alcohol 03/24/25 03/24/25 03/24/25 18:28 16:15 12:56 WBC RBC Hgb Hct MCV MCH MCHC RDW Plt Count MPV Immature Gran % (Auto) Neut % (Auto) Lymph % (Auto) [place] % (Auto) Eos % (Auto) Baso % (Auto) Lymph # (Auto) [place] # (Auto) Eos # (Auto) Baso # (Auto) Abs Immat Gran (auto) Absolute Neuts (auto) Absolute Nucleated RBC Nucleated RBC % ESR 14 Sodium Potassium Chloride Carbon Dioxide Anion Gap BUN Creatinine Estim Creat Clear Calc Estimated GFR Glucose POC Capillary Glucose Lactic Acid 3.6 H 2.9 H Calcium Phosphorus 2.2 L Magnesium 1.5 L Total Bilirubin AST ALT Alkaline Phosphatase C-Reactive Protein < 0.5 Total Protein Albumin Lipase Urine Color Urine Appearance Urine pH Ur Specific [place] Urine Protein Urine Glucose (UA) Urine Ketones Ur Blood (Man) Urine Nitrate Urine Bilirubin Urine Urobilinogen Leukocyte Esterase Rfl Urine RBC Urine WBC Ur Squamous Epith Cells Urine Bacteria Urine Casts POC Urine HCG, Qual Negative Urine Opiates Screen Urine Methadone Screen Ur Barbiturates Screen Ur Phencyclidine Scrn Ur Amphetamine Screen U Benzodiazepines Scrn Urine Cocaine Screen U Cannabinoids Screen Ethyl Alcohol 03/24/25 03/24/25 03/24/25 11:44 10:38 10:00 WBC RBC Hgb Hct MCV MCH MCHC RDW Plt Count MPV Immature Gran % (Auto) Neut % (Auto) Lymph % (Auto) [place] % (Auto) Eos % (Auto) Baso % (Auto) Lymph # (Auto) [place] # (Auto) Eos # (Auto) Baso # (Auto) Abs Immat Gran (auto) Absolute Neuts (auto) Absolute Nucleated RBC Nucleated RBC % ESR Sodium 134 L Potassium 3.6 Chloride 97 L Carbon Dioxide 12 L Anion Gap 25 H BUN 10 Creatinine 0.78 Estim Creat Clear Calc 74 Estimated GFR > 60 Glucose 168 H POC Capillary Glucose 142 H Lactic Acid Calcium 8.5 Phosphorus Magnesium Total Bilirubin 0.8 AST 66 H ALT 59 H Alkaline Phosphatase 102 C-Reactive Protein Total Protein 8.7 H Albumin 4.7 Lipase 33 Urine Color Yellow Urine Appearance Clear Urine pH 6.0 Ur Specific [place] 1.021 Urine Protein 1+ H Urine Glucose (UA) Negative Urine Ketones 2+ H Ur Blood (Man) 1+ H Urine Nitrate Negative Urine Bilirubin Negative Urine Urobilinogen 1.0 Leukocyte Esterase Rfl Trace H Urine RBC 3-5 H Urine WBC 11-20 H Ur Squamous Epith Cells Occasional Urine Bacteria None seen Urine Casts 3-5 POC Urine HCG, Qual Urine Opiates Screen Negative Urine Methadone Screen Negative Ur Barbiturates Screen Negative Ur Phencyclidine Scrn Negative Ur Amphetamine Screen Negative U Benzodiazepines Scrn Negative Urine Cocaine Screen Negative U Cannabinoids Screen Positive A Ethyl Alcohol 17 Discharge Plan Discharge Patient Disposition: Left Against Medical Advice Patient Language: Icelandic Discharge Medications: No Action trazodone 50 mg tablet 50 mg PO HS diphenhydramine HCl [Benadryl] 25 mg capsule 25 mg PO Q8H PRN (Reason: anxiety) Date of admission: 03/24/25 15:53 Primary Care Provider: [facility] Admitting Provider: Tami Narvaez Attending physician on admission: Tami Narvaez Condition: Serious
== END 2025-03-25 09:32 | disposition left against medical advice (07) ==
LOC: ANHED 15:56 → ANHIMU 03-26 07:13
PROVIDERS: Nurse Practitioner Gerontology; Admitting Provider Internal Medicine; Emergency Provider Registered Nurse; PCP Family Medicine; Visit Provider Internal Medicine
DX: I16.0 Hypertensive urgency (principal); E86.0 Dehydration; F10.10 Alcohol abuse, uncomplicated; Y90.0 Blood alcohol level of less than 20 mg/100 ml; I10 Essential (primary) hypertension; N39.0 Urinary tract infection, site not specified; F12.90 Cannabis use, unspecified, uncomplicated; R00.0 Tachycardia, unspecified; E87.20 Acidosis, unspecified; E83.39 Other disorders of phosphorus metabolism; E83.42 Hypomagnesemia
CPT/HCPCS: 36415; 71275; 80048; 80053; 80307; 81001; 81025; 82077; 82948; 83605; 83690; 83735; 84100; 85025; 85652; 86140; 87086; 93005; 96361; 96365; 96374; 96375; 96376; 99285; A9270; G0378; G0379; J0360; J0696; J1790; J2250; J2405; J3360; J3411; J3475; J7030; J7042; J7050; Q9967